=== PATIENT | male | born 1940 | race Caucasian/White ===

== ENCOUNTER 2020-02-23 08:00 | Outpatient (RCR) | payer MEDICARE, OTHER, SELFPAY | END 2021-01-25 12:17 | disposition home or self-care (01) | LOC: HO.WCC 08:00 | PROVIDERS: Visit Provider Surgery | DX: E11.621 Type 2 diabetes mellitus with foot ulcer (principal); L97.514 Non-pressure chronic ulcer of other part of right foot with necrosis of bone; E11.69 Type 2 diabetes mellitus with other specified complication; M86.671 Other chronic osteomyelitis, right ankle and foot; E11.40 Type 2 diabetes mellitus with diabetic neuropathy, unspecified; E11.22 Type 2 diabetes mellitus with diabetic chronic kidney disease; I12.0 Hypertensive chronic kidney disease with stage 5 chronic kidney disease or end stage renal disease; N18.6 End stage renal disease; L84 Corns and callosities; Z79.2 Long term (current) use of antibiotics | CPT/HCPCS: 11042; 11044; 15271; 15275; 97597; 99212; 99213; Q4186 ==

== ENCOUNTER 2020-03-15 11:51 | Outpatient (REF) | payer MEDICARE, OTHER, SELFPAY ==
[2020-03-15 13:47] LABS: MANUAL DIFF FLAG NO
[2020-03-15 13:54] LABS: Glucose Urine UA NEG (NEG); Leukocyte Esterase Urine NEG (NEG); Nitrite Urine NEG (NEG); PH 6.5 (5.0-8.0); Urine Blood NEG (NEG); Urine Ketones NEG (NEG); Urine Protein 2+ MG/DL (NEG-TRACE)
[2020-03-15 13:57] LABS: Basophils Absolute Auto 0.1 X10*3/uL (0.0-0.2); Eosinophils Absolute Auto 0.2 X10*3/uL (0.0-0.4); Eosinophils Percent Auto 2.7 % (0-4); Hematocrit 41.1 % (42-52); Hemoglobin 13.3 g/dl (14.0-18.0); Imm Gran Abs Auto 0.05 X10*3/uL (0.00-0.03); Imm Gran Pct Auto 0.6 % (0.0-0.4); Lymphocytes Absolute Auto 1.6 X10*3/uL (1.2-4.9); Lymphocytes Percent Auto 19.3 % (20-40); Mean Corpuscular HGB Conc 32.4 g/dl (31.0-36.0); Mean Corpuscular Hemoglobin 27.5 pg (27.0-33.0); Mean Corpuscular Volume 84.9 fL (80-98); Monocytes Absolute Auto 0.9 X10*3/uL (0.1-1.2); Monocytes Percent Auto 10.8 % (2-11); Neutrophils Absolute Auto 5.4 X10*3/uL (2.0-8.3); Neutrophils Percent Auto 65.6 % (45-73); Platelet Count 275 X10*3/uL (160-400); Red Blood Count 4.84 X10*6/uL (4.60-5.80); Red Cell Distribution Width 13.9 % (11.0-16.0); White Blood Count 8.3 X10*3/uL (4.8-10.8)
[2020-03-15 14:06] LABS: Appearance Urine CLEAR; Color Urine YELLOW
[2020-03-15 14:14] LABS: RBC Urine 0 /HPF (0); Squamous Epithelial Cell Urine TRACE /LPF; WBC Urine 0-2 /HPF (0-4)
[2020-03-15 14:26] LABS: Albumin Level 4.5 g/dL (3.5-5.0); Anion Gap 15 (12-20); Blood Urea Nitrogen 26 mg/dL (9-16); Calcium 9.5 mg/dL (8.4-10.2); Carbon Dioxide 26 mmol/L (22-29); Chloride 101 mmol/L (96-108); Estimated Glomerular Filt Rate 33; Magnesium 2.2 mg/dL (1.6-2.6); Phosphorus 3.5 mg/dL (2.7-4.5); Potassium 4.6 mmol/l (3.3-5.1); Sodium 137 mmol/L (135-145)
[2020-03-15 14:28] LABS: Creatinine Urine 40.38 mg/dL; Microalbum/Creatinine Ratio Ur 1233.2 ug/mg cr; Total Protein Urine Random 71 mg/dL (<12)
[2020-03-15 14:29] LABS: Creatinine Urine 38.67 mg/dL; Protein/Creatinine Ratio, Ur 1.81 (<0.2); Total Protein Urine Random 70 mg/dL (<12)
[2020-03-15 15:12] LABS: Renal w Reflex Lab Use Only Order verified
[2020-03-16 16:51] LABS: IgA 494 mg/dL (70-320); IgG 1646 mg/dL (600-1540); IgM 47 mg/dL (50-300)
[2020-03-16 23:07] LABS: Calcium (PTHI) 9.7 mg/dL (8.6-10.3); PTHI 62 pg/mL (14-64)
== END 2020-03-15 11:52 | disposition home or self-care (01) ==
LOC: HO.LAB 11:51
PROVIDERS: PCP Internal Medicine; Visit Provider Internal Medicine Nephrology
DX: E11.22 Type 2 diabetes mellitus with diabetic chronic kidney disease (principal); I12.9 Hypertensive chronic kidney disease with stage 1 through stage 4 chronic kidney disease, or unspecified chronic kidney disease; N18.4 Chronic kidney disease, stage 4 (severe)
CPT/HCPCS: 36415; 80051; 81001; 81003; 81015; 82040; 82043; 82306; 82310; 82565; 82784; 83735; 83970; 84100; 84156; 84520; 85025; 86334

== ENCOUNTER 2020-04-24 14:42 | Outpatient (REF) | payer MEDICARE, OTHER, SELFPAY ==
[2020-04-24 18:29] LABS: Free T4 (Free Thyroxine) 1.04 ng/dL (0.71-1.85); Thyroid Stimulating Hormone 2.04 uIU/mL (0.32-4.0)
== END 2020-04-24 14:43 | disposition home or self-care (01) ==
LOC: HO.MANLDS 14:42
PROVIDERS: PCP Physician Assistant; Visit Provider Physician Assistant
DX: R60.0 Localized edema (principal)
CPT/HCPCS: 84439; 84443

== ENCOUNTER 2020-04-25 08:28 | Outpatient (REF) | payer MEDICARE, OTHER, SELFPAY ==
--- NOTE | 2020-04-25 08:44 | XR_ITS ---
EXAMINATION: XR FOOT, RIGHT CLINICAL INFORMATION: Cellulitis right big toe. COMPARISON: None TECHNIQUE: AP, lateral, and oblique views of the right foot. FINDINGS: There is no visible acute fracture, dislocation or subluxation. There is a moderate size calcaneal heel enthesophyte. There is moderate dorsal talonavicular spurring and navicular cuboid spurring. There is flexion deformity PIP joint first digit. No visible acute fracture, dislocation or subluxation seen. There is mild increased soft tissue swelling right great toe but no bony erosive changes. XR/XR foot RT min 3V IMPRESSION: Moderate right great toe soft tissue swelling without bony erosive changes. No suspicion for cellulitis. Dorsal tarsal spurring and a moderate size calcaneal heel enthesophyte.
== END 2020-04-25 08:29 | disposition home or self-care (01) ==
LOC: HO.XRAY 08:28
PROVIDERS: PCP Internal Medicine; Visit Provider Physician Assistant
DX: L03.90 Cellulitis, unspecified (principal)
CPT/HCPCS: 73630

== ENCOUNTER 2020-05-09 13:11 | Outpatient (REF) | payer MEDICARE, OTHER, SELFPAY ==
[2020-05-09 18:13] LABS: Estimated Average Glucose 146 mg/dL; Hemoglobin A1c % 6.7 %
[2020-05-09 18:21] LABS: Alanine Aminotransferase 13 U/L (0-40); Albumin Level 4.3 g/dL (3.5-5.0); Alkaline Phosphatase 76 U/L (39-117); Anion Gap 14 (12-20); Aspartate Amino Transferase 19 U/L (5-37); Bilirubin Total 0.3 mg/dL (0.0-1.0); Blood Urea Nitrogen 29 mg/dL (9-16); Calcium 8.6 mg/dL (8.4-10.2); Carbon Dioxide 27 mmol/L (22-29); Chloride 101 mmol/L (96-108); Estimated Glomerular Filt Rate 30; Glucose Random 159 mg/dL (60-115); Potassium 4.7 mmol/l (3.3-5.1); Sodium 137 mmol/L (135-145); Total Protein 7.8 g/dL (6.5-8.0)
== END 2020-05-09 13:12 | disposition home or self-care (01) ==
LOC: HO.MANLR 13:11
PROVIDERS: PCP Internal Medicine; Referring Provider Internal Medicine Nephrology; Visit Provider Internal Medicine
DX: E11.9 Type 2 diabetes mellitus without complications (principal)
CPT/HCPCS: 80053; 83036

== ENCOUNTER → 2020-06-06 09:50 | Outpatient (BNVA) | payer MEDICARE, OTHER, SELFPAY | PROVIDERS: PCP Internal Medicine; Visit Provider Internal Medicine Cardiovascular Disease | DX: I35.0 Nonrheumatic aortic (valve) stenosis (principal); I10 Essential (primary) hypertension | CPT/HCPCS: 93005; 99212 ==

== ENCOUNTER 2020-08-13 13:36 | Outpatient (REF) | payer MEDICARE, OTHER, SELFPAY ==
[2020-08-13 18:10] LABS: Alanine Aminotransferase 16 U/L (0-40); Albumin Level 4.1 g/dL (3.5-5.0); Alkaline Phosphatase 72 U/L (39-117); Anion Gap 17 (12-20); Aspartate Amino Transferase 22 U/L (5-37); Bilirubin Total 0.6 mg/dL (0.0-1.0); Blood Urea Nitrogen 35 mg/dL (9-16); Calcium 8.9 mg/dL (8.4-10.2); Carbon Dioxide 24 mmol/L (22-29); Chloride 105 mmol/L (96-108); Cholesterol 190 mg/dL; Estimated Glomerular Filt Rate 31; Glucose Random 187 mg/dL (60-115); HDL Cholesterol 40 mg/dL; LDL Cholesterol Calculated 109 mg/dl; Potassium 4.8 mmol/L (3.3-5.1); Sodium 141 mmol/L (135-145); Total Protein 7.4 g/dL (6.5-8.0); Triglycerides 209 mg/dL
[2020-08-14 03:57] LABS: Estimated Average Glucose 140 mg/dL; Hemoglobin A1c % 6.5 %
== END 2020-08-13 13:37 | disposition home or self-care (01) ==
LOC: HO.MANLDS 13:36
PROVIDERS: PCP Internal Medicine; Visit Provider Internal Medicine
DX: E11.9 Type 2 diabetes mellitus without complications (principal)
CPT/HCPCS: 36415; 80053; 80061; 83036

== ENCOUNTER 2020-09-24 07:50 | Outpatient (REF) | payer MEDICARE, OTHER, SELFPAY ==
[2020-09-24 08:28] LABS: MANUAL DIFF FLAG NO
[2020-09-24 08:40] LABS: Basophils Absolute Auto 0.1 X10*3/uL (0.0-0.2); Basophils Percent Auto 0.8 % (0-2); Eosinophils Absolute Auto 0.3 X10*3/uL (0.0-0.4); Eosinophils Percent Auto 3.8 % (0-4); Imm Gran Abs Auto 0.06 X10*3/uL (0.00-0.03); Imm Gran Pct Auto 0.7 % (0.0-0.4); Lymphocytes Absolute Auto 2.2 X10*3/uL (1.2-4.9); Mean Corpuscular HGB Conc 32.5 g/dl (31.0-36.0); Mean Corpuscular Hemoglobin 27.4 pg (27.0-33.0); Mean Corpuscular Volume 84.4 fL (80-98); Mean Platelet Volume 9.8 fL (9.4-12.4); Monocytes Absolute Auto 0.8 X10*3/uL (0.1-1.2); Monocytes Percent Auto 9.4 % (2-11); Neutrophils Percent Auto 59.3 % (45-73); Platelet Count 253 X10*3/uL (160-400); Red Blood Count 4.74 X10*6/uL (4.60-5.80); Red Cell Distribution Width 13.9 % (11.0-16.0); White Blood Count 8.5 X10*3/uL (4.8-10.8)
[2020-09-24 08:52] LABS: Glucose Urine UA 100 MG/DL (NEG); Leukocyte Esterase Urine NEG (NEG); Nitrite Urine NEG (NEG); Urine Blood TRACE (NEG); Urine Ketones NEG (NEG); Urine Protein 2+ MG/DL (NEG-TRACE)
[2020-09-24 09:10] LABS: Appearance Urine CLEAR; Color Urine YELLOW
[2020-09-24 09:12] LABS: RBC Urine 0 /HPF (0); Squamous Epithelial Cell Urine TRACE /LPF; WBC Urine 0 /HPF (0-4)
[2020-09-24 10:07] LABS: Anion Gap 12 (12-20); Blood Urea Nitrogen 26 mg/dL (9-16); Calcium 9.2 mg/dL (8.4-10.2); Carbon Dioxide 23 mmol/L (22-29); Chloride 106 mmol/L (96-108); Estimated Glomerular Filt Rate 31; Phosphorus 3.1 mg/dL (2.7-4.5); Potassium 4.4 mmol/L (3.3-5.1); Sodium 137 mmol/L (135-145)
[2020-09-24 10:19] LABS: Creatinine Urine 44.85 mg/dL; Protein/Creatinine Ratio, Ur 2.47 (<0.2); Total Protein Urine Random 111 mg/dL (<12)
[2020-09-24 10:54] LABS: Renal w Reflex Lab Use Only Order verified
[2020-09-24 11:07] LABS: Albumin Level 4.2 g/dL (3.5-5.0); Magnesium 1.9 mg/dL (1.6-2.6)
[2020-09-25 14:51] LABS: IgA 481 mg/dL (70-320); IgG 1393 mg/dL (600-1540); IgM 44 mg/dL (50-300)
[2020-09-25 17:16] LABS: PTHI 101 pg/mL (14-64)
== END 2020-09-24 07:51 | disposition home or self-care (01) ==
LOC: HO.LAB 07:50
PROVIDERS: PCP Internal Medicine; Visit Provider Internal Medicine Nephrology
DX: E11.22 Type 2 diabetes mellitus with diabetic chronic kidney disease (principal); I12.9 Hypertensive chronic kidney disease with stage 1 through stage 4 chronic kidney disease, or unspecified chronic kidney disease; N18.4 Chronic kidney disease, stage 4 (severe)
CPT/HCPCS: 36415; 80051; 81001; 81003; 82040; 82043; 82306; 82310; 82565; 82784; 83735; 83970; 84100; 84156; 84520; 85025; 86334

== ENCOUNTER 2020-12-03 10:51 | Inpatient (IN) | payer MEDICARE, OTHER, SELFPAY ==
[2020-12-03] VITALS (8 sets, daily range): BP systolic 154–177; BP diastolic 66–93; PULSE 88–101; RESP 16–20; TEMP 36.6–37.4; O2SAT 94–99; BMI 28.0
--- NOTE | ~2020-12-03 | MR_ITS ---
EXAMINATION: MR FOOT WITHOUT AND WITH CONTRAST, RIGHT CLINICAL INFORMATION: First toe ulceration, question osteomyelitis. COMPARISON: X-ray 12/03/2020 TECHNIQUE: MRI on a high-field magnet without and with contrast. 10 mL Gadavist. FINDINGS: FIRST TOE: There is valgus angulation of the 1st distal phalanx at the 1st IP joint. There is apparent soft tissue defect/ulceration in the plantar soft tissues at the level of the distal aspect of the 1st distal phalanx, measuring approximately 0.9 cm transverse, 0.8 cm in length. There is soft tissue swelling with edema/cellulitis present. In the underlying soft tissues, there is a a linearly-oriented bright linear signal, which is nonenhancing extending from the region of the suspected ulceration, which appears to extend to the underlying bone. This could represent a sinus tract. No organized fluid collection or abscess is seen. There are foci of low T1/T2 signal in the dorsal soft tissues overlying the distal 1st proximal phalanx, and the 1st IP joint, suggesting foci of air. Severe bright T2, low T1 signal and enhancement in the 1st distal phalanx diffusely, highly suspicious for osteomyelitis. There is bony irregularity, bony fragmentation/fracture of the 1st distal phalanx, better appreciated on the prior x-ray. There is marked 1st interphalangeal joint space narrowing. No significant joint effusion is seen. Given the intra-articular involvement of the findings of the 1st distal phalanx, 1st interphalangeal joints, septic arthritis cannot be excluded. There is mild edema in the distal 1st proximal phalanx, with intermediate T1 signal changes. This may reflect reactive edema, with early osteomyelitis not excluded. Flexor tendon grossly appears intact. No appreciable tenosynovitis. The distal aspect of the 1st extensor tendon is not clearly visualized, and integrity is not confirmed. ADDITIONAL FINDINGS: Mild 1st MTP joint arthritis. No additional areas of osteomyelitis are identified. Extensive dorsal soft tissue swelling, subcutis edema/cellulitis. Fatty replacement edema of the intrinsic muscles of the foot, probably reflecting denervation changes. MR/MR foot RT wo/w con IMPRESSION: 1. Soft tissue defect/ulceration on the plantar aspect of the 1st distal phalanx. Associated 1st toe soft tissue swelling, edema/cellulitis present. No drainable fluid collections. Question sinus tract extending into the soft tissues to the underlying bone, described above. There appears to be foci of air in the dorsal soft tissues of the distal 1st toe, described above. 2. Abnormal edema and enhancement diffusely of the 1st distal phalanx. Bony irregularity, bony fragmentation/fracture of the distal phalanx is better appreciated on the previous x-ray. Finding is highly suspicious for osteomyelitis in the appropriate clinical circumstance. 3. Marked 1st interphalangeal joint space narrowing. Septic arthritis cannot be excluded. No significant joint effusion is appreciated. 4. Mild edema/enhancement in the distal 1st proximal phalanx, could reflect reactive edema, or early osteomyelitis. 5. The distal aspect of the 1st toe extensor tendon is not clearly visualized, integrity is not confirmed. 6. Additional findings and details, as above.
--- NOTE | ~2020-12-03 | XR_ITS ---
EXAMINATION: XR FOOT, RIGHT CLINICAL INFORMATION: Soft tissue swelling. Assess for osteomyelitis COMPARISON: Radiographs right foot 04/25/2020. TECHNIQUE: AP, lateral, and oblique views of the right foot. FINDINGS: There is artifact from overlying dressing with associated gritty dressing artifact overlying the right great toe. The AP view demonstrates comminuted fracture medial base great toe proximal phalanx extending to the articular surface. This represents new finding from prior exam 04/25/2020. In the setting of soft tissue infection, this may represent pathologic fracture. There is no periostitis. No gas tracking in the soft tissues. The remainder of the bony structures appear intact. Again, there are posterior and plantar calcaneal spurs and prominent dorsal spurring from the talonavicular region and midfoot. XR/XR foot RT 2V IMPRESSION: 1. Comminuted fracture medial base first distal phalanx extending to the articular surface. Overlying artifact from soft tissue dressing. In the setting of local soft tissue infection in this area, this may represent pathologic fracture. 2. Remainder of bony structures appear intact.
--- NOTE | ~2020-12-03 | IR_ITS ---
PROCEDURE: IR INSERTION OF TUNNEL CATHETER CLINICAL INFORMATION: Osteomyelitis of distal phalanx great toe right foot. COMPARISON: Right tunneled catheter insertion 01/22/2018. TECHNIQUE: Following explaining ultrasound fluoroscopy-guided placement of right-sided Pro-Line/Eagle catheter procedure, benefits and risk, a written consent was obtained. Patient was placed supine on fluoroscopy table and preliminary ultrasound imaging was obtained. An optimal site was selected, marked, cleaned and draped in usual sterile manner. 1% lidocaine was injected at the puncture site. Under sterile ultrasound guidance a single wall needle was advanced from the right supraclavicular fossa laterally into the jugular vein. After observing venous return a thin guidewire was advanced and the needle withdrawn. Over the guidewire a 3 Maltese dilator was placed and the entire unit was anchored to the skin. Approximately 1 guaze length away from the right neck puncture along the anterior chest wall 1% lidocaine was inserted. A small skin incision was performed. A tunneler attached to the Eagle/Pro-Line catheter was advanced subcutaneously from the anterior chest wall region to the neck excision and was pulled out. The catheter was sized to 32 cm long. At neck incision the thin guidewire was replaced by 0.018 wire. The 3 Maltese sheath was exchanged for a 5 Maltese peel-away sheath. The dilator and the wire were removed and the pre-sized Eagle catheter was advanced through the dilator. The peel-away dilator was removed as the catheter was advanced. A final image was obtained documenting the catheter tip in the atrium or at the atrio-caval junction. The incision sites at the neck and the anterior chest wall were sutured with 3-0 absorbable sutures. The Eagle catheter was flushed with heparin. Conscious sedation and patient monitoring was performed during the exam. Patient tolerated procedure extremely well. All elements of maximal sterile barrier technique followed including use of cap, mask, sterile gown, sterile gloves, a sterile full body drape and hand hygiene. Also followed skin preparation with 2% chlorhexidine for cutaneous antisepsis, and sterile ultrasound preparation with sterile gel and probe cover when applicable. FINDINGS: On preliminary ultrasound imaging there is a widely patent right jugular vein and right carotid artery. Ultrasound and fluoroscopy-guided placement of a 32 cm long tunneled Eagle catheter with its tip in the right atrium or at the atrio-caval junction. IR/IR cvc insert central tunnel IMPRESSION: Successful placement of 5 Maltese tunneled Pro-Line/Eagle catheter.
--- NOTE | 2020-12-03 12:03 | ED_ITS ---
HPI - General Adult General Chief complaint: General Medical Stated complaint: foot infection Time Seen by Provider: 12/03/20 11:52 Source: patient Mode of arrival: ambulatory Limitations: no limitations History of Present Illness HPI narrative: 80-year-old male came in for evaluation of infected right foot. Patient been having right foot infection after injury, patient was put on Keflex orally at home with worsening of the cellulitis of the right foot and patient was sent to the emergency department for further evaluation. 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 Related Data Home Medications Medication Instructions Recorded Confirmed ascorbic acid (vitamin C) 1,000 mg 500 mg PO DAILY 06/06/20 12/03/20 tablet calcium carbonate 600 mg calcium 600 mg PO DAILY 06/06/20 12/03/20 (1,500 mg) tablet cholecalciferol (vitamin D3) 25 25 mcg PO DAILY 06/06/20 12/03/20 mcg (1,000 unit) capsule lactobacillus combination no.9 4 4,000 mmu cells PO DAILY 06/06/20 12/03/20 billion cell capsule nifedipine 90 mg tablet,extended 90 mg PO DAILY 06/06/20 12/03/20 release omega-3 fatty acids 1,000 mg 1,000 mg PO DAILY 06/06/20 12/03/20 capsule vitamin B complex 1 tab PO DAILY 06/06/20 12/03/20 Allergies Allergy/AdvReac Type Severity Reaction Status Date / Time latex [LATEX] Allergy Intermediate RASH Verified 12/03/20 10:55 latex AdvReac Unknown itchy Uncoded 11/28/19 00:00 since picc line has been put in Review of Systems Review of Systems: All other systems are reviewed and are negative Constitutional: Reports as per HPI and Reports no additional constitutional complaints Eyes: Reports as per HPI and Reports no additional eye complaints Reports system reviewed and no additional complaints, except as documented Cardiovascular: Reports as per HPI and Reports no additional cardiovascular complaints Respiratory: Reports as per HPI and Reports no additional respiratory complaints Gastrointestinal: Reports as per HPI and Reports no additional gastrointestinal complaints Genitourinary: Reports no additional female genitourinary complaints Musculoskeletal: Reports no additional musculoskeletal complaints Skin/Breast: Reports system reviewed and no additional complaints, except as d ocu Psychiatric: Reports no additional psychiatric complaints Endocrine: Reports no additional endocrine complaints Hematologic/Lymphatic: Reports no additional hematologic/lymphatic complaints Allergic/Immunologic: Reports no additional allergic/immunologic complaints Reports system reviewed and no additional complaints, except as documented and Reports Abnormal speech present [facility] Past Medical History Medical History Diabetes Heart murmur Kidney disease Family History Family History Father Heart attack CVD (cardiovascular disease) Mother Colon cancer Social History Social History Patient Tobacco Use Status: Never used Tobacco Use of substances other than those prescribed or required for medical reasons: No Advance Directives: No Advance Directives Information Provided: No Physical Exam Vital Signs: Vital Signs: Last Vital Signs Temp 98.2 F 12/03/20 13:04 Pulse 91 12/03/20 13:04 Resp 18 12/03/20 10:55 BP 177/84 H 12/03/20 13:04 Pulse Ox 98 12/03/20 13:04 Body Mass Index 28.0 Vital signs have been reviewed as appeared to be correct. Blood pressure normal. Heart rate normal. Respiration rate normal. Temperature normal. Oxygen saturation normal. Appearance: Alert. Oriented X3. No acute distress. Head: Normal external exam. Normocephalic. Atraumatic. No Falcon signs noted. No raccoon eyes noted Eyes: PERRLA. EOMI. Conjunctiva and sclera normal. Eyelids normal. ENT: TM's Normal. Pharynx normal. Uvula midline. Moist mucous membranes. No trismus noted. No drooling noted. No muffled voice noted. Neck: Normal inspection. Neck supple. FROM. No adenopathy. Thyroid Normal. No meningeal signs. No neck mass noted. CVS: Normal heart rate and rhythm. Heart sound normal. No murmurs noted. Pulses normal throughout. Respiratory: No respiratory distress. Painless inspiration. Breath sounds normal. No wheezes/rales/rhonchi noted. Chest nontender. No accessory muscle usage noted or decreased air movement noted. Abdomen: Soft and nontender. Bowel sounds normal in all 4 quadrants. No distention noted. No organomegaly noted. No visible injury noted. Back: No CVA tenderness. Full range of motion noted. Skin: Skin warm and dry. Normal skin color. Normal skin turgor. No rashes/lesions/lacerations noted. Extremities: Right foot exam: Area of redness, hotness, tenderness of the scan on the dorsum of the right foot with ulceration at the tip of the right big toe. Neuro: Oriented X 3. No motor deficit. No sensory deficit. Reflexes normal. Course Course Course Narrative: Assessment and plan. 80-year-old male with right foot cellulitis that is not responding to oral antibiotic. Patient meet criteria for SIRS, will start the patient on Vanco/Zosyn IV and will admit the patient, get an inpatient ortho consult. Medical Decision Making Lab Data Lab results reviewed: Yes I reviewed the patient's lab results. Result diagrams: 12/03/20 12:25 12/03/20 12:25 Labs: Lab Results 12/03/20 12/03/20 12/03/20 Range/Units 12:25 12:25 12:25 WBC 12.3 H (4.8-10.8) X10*3/uL RBC 4.67 (4.60-5.80) X10*6/uL Hgb 12.9 L (14.0-18.0) g/dl Hct 38.8 L (42-52) % MCV 83.1 (80-98) fL MCH 27.6 (27.0-33.0) pg MCHC 33.2 (31.0-36.0) g/dl RDW 13.0 (11.0-16.0) % Plt Count 264 (160-400) X10*3/uL MPV 9.4 (9.4-12.4) fL Immature Gran % (Auto) 0.7 H (0.0-0.4) % Neut % (Auto) 77.0 H (45-73) % Lymph % (Auto) 7.6 L (20-40) % [place] % (Auto) 14.0 H (2-11) % Eos % (Auto) 0.3 (0-4) % Baso % (Auto) 0.4 (0-2) % Lymph # (Auto) 0.9 L (1.2-4.9) X10*3/uL [place] # (Auto) 1.7 H (0.1-1.2) X10*3/uL Eos # (Auto) 0.0 (0.0-0.4) X10*3/uL Baso # (Auto) 0.1 (0.0-0.2) X10*3/uL Abs Immat Gran (auto) 0.09 H (0.00-0.03) X10*3/uL Absolute Neuts (auto) 9.4 H (2.0-8.3) X10*3/uL Absolute Nucleated RBC 0.000 (0.0-0.012) X10*3/uL Nucleated RBC % (auto) 0.0 (0.0-0.2) /100WBC Smear Tech's Comments VERIFIED Sodium 133 L (135-145) mmol/L Potassium 4.5 (3.3-5.1) mmol/L Chloride 97 (96-108) mmol/L Carbon Dioxide 24 (22-29) mmol/L Anion Gap 17 (12-20) BUN 35 H (9-16) mg/dL Creatinine 2.28 H (0.5-1.4) mg/dL Estim Creat Clear Calc 33.4 Estimated GFR 28 Random Glucose 159 H (60-115) mg/dL Lactic Acid 1.5 (0.5-2.0) mmol/L Calcium 9.7 (8.4-10.2) mg/dL COVID-19 ([facility]IVAM) (Negative) COVID-19 Clin Com 12/03/20 Range/Units 12:25 WBC (4.8-10.8) X10*3/uL RBC (4.60-5.80) X10*6/uL Hgb (14.0-18.0) g/dl Hct (42-52) % MCV (80-98) fL MCH (27.0-33.0) pg MCHC (31.0-36.0) g/dl RDW (11.0-16.0) % Plt Count (160-400) X10*3/uL MPV (9.4-12.4) fL Immature Gran % (Auto) (0.0-0.4) % Neut % (Auto) (45-73) % Lymph % (Auto) (20-40) % [place] % (Auto) (2-11) % Eos % (Auto) (0-4) % Baso % (Auto) (0-2) % Lymph # (Auto) (1.2-4.9) X10*3/uL [place] # (Auto) (0.1-1.2) X10*3/uL Eos # (Auto) (0.0-0.4) X10*3/uL Baso # (Auto) (0.0-0.2) X10*3/uL Abs Immat Gran (auto) (0.00-0.03) X10*3/uL Absolute Neuts (auto) (2.0-8.3) X10*3/uL Absolute Nucleated RBC (0.0-0.012) X10*3/uL Nucleated RBC % (auto) (0.0-0.2) /100WBC Smear Tech's Comments Sodium (135-145) mmol/L Potassium (3.3-5.1) mmol/L Chloride (96-108) mmol/L Carbon Dioxide (22-29) mmol/L Anion Gap (12-20) BUN (9-16) mg/dL Creatinine (0.5-1.4) mg/dL Estim Creat Clear Calc Estimated GFR Random Glucose (60-115) mg/dL Lactic Acid (0.5-2.0) mmol/L Calcium (8.4-10.2) mg/dL COVID-19 ([facility]IVAM) Negative (Negative) COVID-19 Clin Com See Note Imaging Data Right foot x-ray: Radiologist's impression: . Comminuted fracture medial base first distal phalanx extending to the articular surface. Overlying artifact from soft tissue dressing. In the setting of local soft tissue infection in this area, this may represent pathologic fracture. 2. Remainder of bony structures appear intact. Discharge Plan Discharge Clinical Impression: Cellulitis of foot Patient Disposition: Admitted As Inpatient
[2020-12-03] MEDS: 0.9 % Sodium Chloride 1,000 ML 999 ML IVCONT (12:36)
[2020-12-03 12:38] LABS: Basophils Absolute Auto 0.1 X10*3/uL (0.0-0.2); Basophils Percent Auto 0.4 % (0-2); Eosinophils Percent Auto 0.3 % (0-4); Hematocrit 38.8 % (42-52); Hemoglobin 12.9 g/dl (14.0-18.0); Imm Gran Abs Auto 0.09 X10*3/uL (0.00-0.03); Imm Gran Pct Auto 0.7 % (0.0-0.4); Lymphocytes Absolute Auto 0.9 X10*3/uL (1.2-4.9); Lymphocytes Percent Auto 7.6 % (20-40); MANUAL DIFF FLAG SCAN; Mean Corpuscular HGB Conc 33.2 g/dl (31.0-36.0); Mean Corpuscular Hemoglobin 27.6 pg (27.0-33.0); Mean Corpuscular Volume 83.1 fL (80-98); Mean Platelet Volume 9.4 fL (9.4-12.4); Monocytes Absolute Auto 1.7 X10*3/uL (0.1-1.2); Neutrophils Absolute Auto 9.4 X10*3/uL (2.0-8.3); Platelet Count 264 X10*3/uL (160-400); Red Blood Count 4.67 X10*6/uL (4.60-5.80); SCAN SMEAR FLAG 1; White Blood Count 12.3 X10*3/uL (4.8-10.8)
[2020-12-03 12:57] LABS: COVID-19 Test Negative (Negative); IDNOW Serial# 08D9AD1C
[2020-12-03] MEDS: Piperacillin Sodium/Tazobactam 3.375 GM in 0.9 % Sodium Chloride 50 ML IV (13:01)
[2020-12-03 13:04] LABS: SLIDE REVIEW VERIFIED
[2020-12-03 13:20] LABS: Lactic Acid 1.5 mmol/L (0.5-2.0)
[2020-12-03 13:23] LABS: Anion Gap 17 (12-20); Blood Urea Nitrogen 35 mg/dL (9-16); Calcium 9.7 mg/dL (8.4-10.2); Carbon Dioxide 24 mmol/L (22-29); Chloride 97 mmol/L (96-108); Creatinine Clr Calc Pharmacy 33.4; Estimated Glomerular Filt Rate 28; Glucose Random 159 mg/dL (60-115); Potassium 4.5 mmol/L (3.3-5.1); Sodium 133 mmol/L (135-145)
--- NOTE | 2020-12-03 13:53 | PHA.MEDREC ---
Pharmacy Consult ? Medication Reconciliation Pharmacy has completed the medication reconciliation.
[2020-12-03] MEDS: vancomycin HCL 1,000 MG in 0.9 % Sodium Chloride 250 ML 270 MG IV (14:04)
--- NOTE | 2020-12-03 14:47 | PC.NURSE ---
PT RESTING IN BED COMFORTABLY. IS AT BEDSIDE. BOTH ARE AWARE OF PLAN TO BE ADMIT TO THE HOSPITAL
[2020-12-03 15:13] LABS: Glucose Urine UA NEG (NEG); Leukocyte Esterase Urine NEG (NEG); Nitrite Urine NEG (NEG); Specific Gravity - Urine 1.015 (1.005-1.025); Urine Blood NEG (NEG); Urine Ketones NEG (NEG); Urine Protein 2+ MG/DL (NEG-TRACE)
[2020-12-03 15:15] LABS: Appearance Urine HAZY; Color Urine YELLOW
[2020-12-03 15:29] LABS: Hyaline Casts Urine 0-2 /LPF; Mucus Urine 1+ /LPF; RBC Urine 0-2 /HPF (0); Squamous Epithelial Cell Urine 1+ /LPF; WBC Urine 0 /HPF (0-4)
[2020-12-03 15:30] LABS: Amorphous Sediment Urine TRACE /LPF; Granular Casts Urine 0-2 /LPF
[2020-12-03 16:15] LABS: C Reactive Protein 23.47 mg/dL (< or = 0.50)
--- NOTE | 2020-12-03 16:33 | P.HPHOSP_ITS ---
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 He has also had multiple bouts of diabetic foot infection involving different toes over the last 5 years, including at least 1 episode of osteomyelitis requiring long-term IV antibiotic infusion through a Eagle catheter. He has previously seen our ID specialist, Dr Gamboa for these. He has not had any toe amputations, though. He denies history of MRSA or other resistant organisms. Ni history of vascular disease. He has been struggling with a problem of his right great toe ever since early December 2019, when he developed a skin tear from his diabetic shoe, which he was wearing without the orthotic insert. He sees a edge drummer and then was referred to the [facility]. The skin tear progressed to an ulcer and when he saw his edge drummer on 11/30/20, the edge drummer probed the wound done to bone. He was started on cephalexin but has developed worsening redness, swelling, and drainage from the ulcer and thus presented to the ED today. He denies fever, chills, lightheadedness, dyspnea, chest pain, nausea, or vomiting. The toe is not painful but he is neuropathic. He was found to be septic by virtue of leukocytosis and tachycardia. Review of Systems 2 Review of Systems: Yes all other systems are reviewed and are negative [facility] Medical History Aortic stenosis Diabetes Heart murmur Kidney disease Family History Father Heart attack CVD (cardiovascular disease) Mother Colon cancer Social History Patient Tobacco Use Status: Never used Tobacco Use of substances other than those prescribed or required for medical reasons: No Advance Directives: No Advance Directives Information Provided: No Meds Allergies Allergy/AdvReac Type Severity Reaction Status Date / Time latex [LATEX] Allergy Intermediate RASH Verified 12/03/20 10:55 latex AdvReac Unknown itchy Uncoded 11/28/19 00:00 since picc line has been put in Active Medications: Current Medications Generic Name Dose Route Start Last Admin Trade Name Sara PRN Reason Stop Dose Admin Acetaminophen 650 mg 12/03/20 15:56 Acetaminophen 325 Mg Tablet PO Q6H PRN Pain, Mild (Pain Scale 1-3) Ascorbic Acid 500 mg 12/04/20 09:00 Ascorbic Acid 500 Mg Tablet PO DAILY PENDING SALE TO [facility] Calcium Carbonate 500 mg 12/04/20 09:00 Calcium Carbonate 500 Mg Tablet PO DAILY PENDING SALE TO [facility] Heparin Sodium (Porcine) 5,000 unit 12/03/20 16:00 Heparin Sodium,Porcine 5,000 Unit/Ml Vial SUBCUT Q12H PENDING SALE TO [facility] Vancomycin HCl 1,000 mg/ 270 mls @ 270 mls/hr 12/04/20 14:00 Sodium Chloride IV Q24H PENDING SALE TO [facility] Piperacillin Sod/Tazobactam 50 mls @ 100 mls/hr 12/03/20 16:00 Sod 2.25 gm/ Sodium Chloride IV Q6H PENDING SALE TO [facility] Multivitamins 1 tab 12/04/20 09:00 B-Complex With Vitamin C Tablet PO DAILY PENDING SALE TO [facility] Nifedipine 90 mg 12/04/20 09:00 Nifedipine Er 90 Mg Tab.Er.24 PO DAILY PENDING SALE TO [facility] Ondansetron HCl 4 mg 12/03/20 15:56 Ondansetron Hcl 4 Mg/2 Ml Vial IVPUSH Q8H PRN Nausea and Vomiting Pharmacy Consult 1 each 12/03/20 11:52 Consult Rx Vancomycin Dosing MISCELLANE DAILY PRN Consult order Pharmacy Consult 1 each 12/03/20 12:53 Consult Rx Perform Med Rec MISCELLANE ONCE PRN Consult order Pharmacy Consult 1 each 12/03/20 15:50 Consult Rx Vancomycin Dosing MISCELLANE DAILY PRN Consult order Sodium Chloride 3 ml 12/03/20 16:00 0.9 % Sodium Chloride Flush 3 Ml Syringe IVFLUSH QSHIFT PENDING SALE TO [facility] Vitamin D 25 mcg 12/04/20 09:00 Cholecalciferol (Vitamin D3) 25 Mcg Tablet PO DAILY PENDING SALE TO [facility] Home Medications Medication Instructions Recorded Confirmed Last Taken Type ascorbic acid (vitamin C) 1,000 mg 500 mg PO DAILY 06/06/20 12/03/20 Unknown History tablet calcium carbonate 600 mg calcium 600 mg PO DAILY 06/06/20 12/03/20 Unknown History (1,500 mg) tablet cholecalciferol (vitamin D3) 25 25 mcg PO DAILY 06/06/20 12/03/20 Unknown History mcg (1,000 unit) capsule lactobacillus combination no.9 4 4,000 mmu cells PO DAILY 06/06/20 12/03/20 Unknown History billion cell capsule nifedipine 90 mg tablet,extended 90 mg PO DAILY 06/06/20 12/03/20 Unknown History release omega-3 fatty acids 1,000 mg 1,000 mg PO DAILY 06/06/20 12/03/20 Unknown History capsule vitamin B complex 1 tab PO DAILY 06/06/20 12/03/20 Unknown History Physical Exam Vital Signs and Narrative: Vital Signs: Last Vital Signs Temp 99.3 F 12/03/20 15:56 Pulse 94 12/03/20 15:56 Resp 17 12/03/20 15:56 BP 154/66 H 12/03/20 15:56 Pulse Ox 99 12/03/20 15:56 Body Mass Index 28.0 Gen: in no acute distress HEENT: sclera anicteric, moist mucus membranes Neck: supple Lungs: clear to auscultation bilaterally Heart: regular rate and rhythm, 2/6 systolic murmur at base Abd: soft, non-tender, non-distended Ext: no edema Skin: warm/well-perfused with good peripheral pulses. over the R 1st toe pad, there is a 1 cm ulcer with clear drainage. the entire R 1st toe is erythematous and indurated, and the erythema extends to the distal midfoot area Neuro: alert and oriented x3, decreased sensation to light touch bilateral lower extremities Psych: appropriate affect Results Labs CBC and Chem 7: 12/03/20 12:25 12/03/20 12:25 Labs: Laboratory Results - last 24 hr 12/03/20 12/03/20 12/03/20 12:25 12:25 12:25 MCV 83.1 MCH 27.6 MCHC 33.2 RDW 13.0 Plt Count 264 MPV 9.4 Immature Gran % (Auto) 0.7 H Neut % (Auto) 77.0 H Lymph % (Auto) 7.6 L [place] % (Auto) 14.0 H Eos % (Auto) 0.3 Baso % (Auto) 0.4 Lymph # (Auto) 0.9 L [place] # (Auto) 1.7 H Eos # (Auto) 0.0 Baso # (Auto) 0.1 Abs Immat Gran (auto) 0.09 H Absolute Neuts (auto) 9.4 H Absolute Nucleated RBC 0.000 Nucleated RBC % (auto) 0.0 Smear Tech's Comments VERIFIED Anion Gap 17 Estim Creat Clear Calc 33.4 Estimated GFR 28 Random Glucose 159 H Lactic Acid 1.5 Calcium 9.7 C-Reactive Protein 23.47 H Urine Color Urine Appearance Urine pH Ur Specific Hughes Urine Protein Urine Glucose (UA) Urine Ketones Urine Blood Urine Nitrite Ur Leukocyte Esterase Urine RBC Urine WBC Ur Squamous Epith Cells Amorphous Sediment Urine Bacteria Hyaline Casts Granular Casts Urine Mucus COVID-19 ([facility]) COVID-19 Clin Com 12/03/20 12/03/20 12:25 12:47 MCV MCH MCHC RDW Plt Count MPV Immature Gran % (Auto) Neut % (Auto) Lymph % (Auto) [place] % (Auto) Eos % (Auto) Baso % (Auto) Lymph # (Auto) [place] # (Auto) Eos # (Auto) Baso # (Auto) Abs Immat Gran (auto) Absolute Neuts (auto) Absolute Nucleated RBC Nucleated RBC % (auto) Smear Tech's Comments Anion Gap Estim Creat Clear Calc Estimated GFR Random Glucose Lactic Acid Calcium C-Reactive Protein Urine Color YELLOW Urine Appearance HAZY Urine pH 6.0 Ur Specific Hughes 1.015 Urine Protein 2+ H Urine Glucose (UA) NEG Urine Ketones NEG Urine Blood NEG Urine Nitrite NEG Ur Leukocyte Esterase NEG Urine RBC 0-2 Urine WBC 0 Ur Squamous Epith Cells 1+ Amorphous Sediment TRACE Urine Bacteria NONE Hyaline Casts 0-2 Granular Casts 0-2 Urine Mucus 1+ COVID-19 ([facility]IV[facility]) Negative COVID-19 Clin Com See Note Imaging Radiologist's Impressions: Impressions Foot X-Ray 12/03/20 11:52 IMPRESSION: 1. Comminuted fracture medial base first distal phalanx extending to the articular surface. Overlying artifact from soft tissue dressing. In the setting of local soft tissue infection in this area, this may represent pathologic fracture. 2. Remainder of bony structures appear intact. Assessment and Plan (1) Sepsis: Status: Acute (2) Osteomyelitis: Status: Acute 80yo M with DM2 with neuropathy, CKD3, HTN, and multiple prior episodes of DM foot infection including at least 1 bout of osteomyelitis, presenting with sepsis from infection of the R great toe and a worsening ulcer that probes to bone # DM foot infection/osteomyelitis - Admit to M/S. Start IV vancomycin + piperacillin/tazobactam after BCx. Consult ID + Gen Surg. Obtain MRI R foot to delineate extent of infection. Follow BCx, check ESR/CRP. Will need either long-term IV antibiotics through port or amputation. # CKD3 - SCr close to baseline, monitor SCr, avoid nephrotoxins to extent possible # HTN - continue nifedipine # DM2, diet-controlled - correction-dose lispro # VTE ppx - UFH # code - full Quality Stroke Does the patient have a stroke diagnosis?: No VTE Prior VTE?: No VTE Risk Level:: Medical - moderate - high VTE Device Contraindication: N/A - Device Ordered VTE Drug Contraindication: N/A - Med Ordered
--- NOTE | 2020-12-03 17:21 | PM.CNGS ---
History of Present Illness Consult details Consult date: 12/03/20 Narrative: 80M referred for a right big toe ulcer with cellulitis. He has known DM and has had an ulcer on the plantar aspec of his big toe, right since Dec 2019. He says this started after a toe insert he was using for his big toe deformity caused some skin breakdown. He has had this therefore since then. He is being followed by a band master as well who had recently started him on oral antibiotics. He says the foot was very red and swolen this morning so he came to the ED. He states he has had various toe infections in the poast with a hx of osteomyelitis at some point. Review of Systems Constitutional: Constitutional: Denies chills and Denies fever(s) Cardiovascular: Cardiovascular: Denies chest pain, Denies dyspnea and Denies dyspnea on exertion Respiratory: Respiratory: Denies cough, Denies dyspnea and Denies dyspnea on exertion Gastrointestinal: Gastrointestinal: Denies hematochezia and Denies change in bowel habits Genitourinary: Genitourinary: Denies hematuria and Denies difficulty urinating Musculoskeletal: Musculoskeletal: Denies back pain and Denies limited range of motion Neurologic: Denies focal weakness and Denies convulsions Psychiatric: Psychiatric: Denies depression and Denies mood swings PMFSH Past Medical History Medical History Aortic stenosis Diabetes Heart murmur Kidney disease Family History Family History Father Heart attack CVD (cardiovascular disease) Mother Colon cancer Social History Social History Household Members: Spouse Housing: House Do you presently have visiting nurse or other home services: Yes Patient Tobacco Use Status: Never used Tobacco service: No Current occupational status: retired Meds Allergies Allergy/AdvReac Type Severity Reaction Status Date / Time latex [LATEX] Allergy Intermediate RASH Verified 12/03/20 10:55 latex AdvReac Unknown itchy Uncoded 11/28/19 00:00 since picc line has been put in Active Medications: Current Medications Generic Name Dose Route Start Last Admin Trade Name Freq PRN Reason Stop Dose Admin Acetaminophen 650 mg 12/03/20 15:56 Acetaminophen 325 Mg Tablet PO Q6H PRN Pain, Mild (Pain Scale 1-3) Ascorbic Acid 500 mg 12/04/20 09:00 Ascorbic Acid 500 Mg Tablet PO DAILY [facility] Calcium Carbonate 500 mg 12/04/20 09:00 Calcium Carbonate 500 Mg Tablet PO DAILY [facility] Heparin Sodium (Porcine) 5,000 unit 12/03/20 16:00 12/03/20 17:10 Heparin Sodium,Porcine 5,000 Unit/Ml Vial SUBCUT Not Given Q12H [facility] Vancomycin HCl 1,000 mg/ 270 mls @ 270 mls/hr 12/04/20 14:00 Sodium Chloride IV Q24H [facility] Piperacillin Sod/Tazobactam 50 mls @ 100 mls/hr 12/03/20 19:00 Sod 2.25 gm/ Sodium Chloride IV Q6H [facility] Multivitamins 1 tab 12/04/20 09:00 B-Complex With Vitamin C Tablet PO DAILY [facility] Nifedipine 90 mg 12/04/20 09:00 Nifedipine Er 90 Mg Tab.Er.24 PO DAILY [facility] Ondansetron HCl 4 mg 12/03/20 15:56 Ondansetron Hcl 4 Mg/2 Ml Vial IVPUSH Q8H PRN Nausea and Vomiting Pharmacy Consult 1 each 12/03/20 11:52 Consult Rx Vancomycin Dosing MISCELLANE DAILY PRN Consult order Pharmacy Consult 1 each 12/03/20 12:53 Consult Rx Perform Med Rec MISCELLANE ONCE PRN Consult order Pharmacy Consult 1 each 12/03/20 15:50 Consult Rx Vancomycin Dosing MISCELLANE DAILY PRN Consult order Sodium Chloride 3 ml 12/03/20 16:00 12/03/20 16:41 0.9 % Sodium Chloride Flush 3 Ml Syringe IVFLUSH Not Given QSHIFT [facility] Vitamin D 25 mcg 12/04/20 09:00 Cholecalciferol (Vitamin D3) 25 Mcg Tablet PO DAILY [facility] Home Medications Medication Instructions Recorded Confirmed Last Taken Type ascorbic acid (vitamin C) 1,000 mg 500 mg PO DAILY 06/06/20 12/03/20 Unknown History tablet calcium carbonate 600 mg calcium 600 mg PO DAILY 06/06/20 12/03/20 Unknown History (1,500 mg) tablet cholecalciferol (vitamin D3) 25 25 mcg PO DAILY 06/06/20 12/03/20 Unknown History mcg (1,000 unit) capsule lactobacillus combination no.9 4 4,000 mmu cells PO DAILY 06/06/20 12/03/20 Unknown History billion cell capsule nifedipine 90 mg tablet,extended 90 mg PO DAILY 06/06/20 12/03/20 Unknown History release omega-3 fatty acids 1,000 mg 1,000 mg PO DAILY 06/06/20 12/03/20 Unknown History capsule vitamin B complex 1 tab PO DAILY 06/06/20 12/03/20 Unknown History Physical Exam Vital Signs: Vital Signs: Last Vital Signs Temp 99.3 F 12/03/20 15:56 Pulse 94 12/03/20 15:56 Resp 17 12/03/20 15:56 BP 154/66 H 12/03/20 15:56 Pulse Ox 99 12/03/20 15:56 Body Mass Index 28.0 Laboratory Results - last 24 hr 12/03/20 12/03/20 12/03/20 12:25 12:25 12:25 WBC 12.3 H RBC 4.67 Hgb 12.9 L Hct 38.8 L MCV 83.1 MCH 27.6 MCHC 33.2 RDW 13.0 Plt Count 264 MPV 9.4 Immature Gran % (A uto) 0.7 H Neut % (Auto) 77.0 H Lymph % (Auto) 7.6 L [place] % (Auto) 14.0 H Eos % (Auto) 0.3 Baso % (Auto) 0.4 Lymph # (Auto) 0.9 L [place] # (Auto) 1.7 H Eos # (Auto) 0.0 Baso # (Auto) 0.1 Abs Immat Gran (au to) 0.09 H Absolute Neuts (au to) 9.4 H Absolute Nucleated RBC 0.000 Nucleated RBC % (a uto) 0.0 Smear Tech's Comme nts VERIFIED Sodium 133 L Potassium 4.5 Chloride 97 Carbon Dioxide 24 Anion Gap 17 BUN 35 H Creatinine 2.28 H Estim Creat Clear Calc 33.4 Estimated GFR 28 Random Glucose 159 H Lactic Acid 1.5 Calcium 9.7 C-Reactive Protein 23.47 H Urine Color Urine Appearance Urine pH Ur Specific Gravit y Urine Protein Urine Glucose (UA) Urine Ketones Urine Blood Urine Nitrite Ur Leukocyte Clarisa ase Urine RBC Urine WBC Ur Squamous Epith Cells Amorphous Sediment Urine Bacteria Hyaline Casts Granular Casts Urine Mucus COVID-19 ([facility]) COVID-19 Clin Com 12/03/20 12/03/20 12:25 12:47 WBC RBC Hgb Hct MCV MCH MCHC RDW Plt Count MPV Immature Gran % (A uto) Neut % (Auto) Lymph % (Auto) [place] % (Auto) Eos % (Auto) Baso % (Auto) Lymph # (Auto) [place] # (Auto) Eos # (Auto) Baso # (Auto) Abs Immat Gran (au to) Absolute Neuts (au to) Absolute Nucleated RBC Nucleated RBC % (a uto) Smear Tech's Comme nts Sodium Potassium Chloride Carbon Dioxide Anion Gap BUN Creatinine Estim Creat Clear Calc Estimated GFR Random Glucose Lactic Acid Calcium C-Reactive Protein Urine Color YELLOW Urine Appearance HAZY Urine pH 6.0 Ur Specific Gravit y 1.015 Urine Protein 2+ H Urine Glucose (UA) NEG Urine Ketones NEG Urine Blood NEG Urine Nitrite NEG Ur Leukocyte Clarisa ase NEG Urine RBC 0-2 Urine WBC 0 Ur Squamous Epith Cells 1+ Amorphous Sediment TRACE Urine Bacteria NONE Hyaline Casts 0-2 Granular Casts 0-2 Urine Mucus 1+ COVID-19 ([facility]IVAM) Negative COVID-19 Clin Com See Note Const: General: comfortable and no acute distress Orientation/consciousness: patient oriented x3 Neck: Neck: Yes no lymphadenopathy Resp: Auscultation: clear to auscultation bilaterally Cardio: Rhythm: regular rhythm GI: Palpation (GI): Soft to palpation, nontender and no guarding Neuro: General: patient oriented x3 Extrem: Other: cellulitic changes, forefoot right; big toe, right turned laterally; ulcer on plantar aspect, about 1 cm diameter Results Labs Result diagrams: 12/05/20 06:32 12/05/20 06:32 Labs: Abnormal lab results 12/03/20 12/03/20 12/03/20 Range/Units 12:25 12:25 12:47 WBC 12.3 H (4.8-10.8) X10*3/uL Hgb 12.9 L (14.0-18.0) g/dl Hct 38.8 L (42-52) % Immature Gran % (Auto) 0.7 H (0.0-0.4) % Neut % (Auto) 77.0 H (45-73) % Lymph % (Auto) 7.6 L (20-40) % [place] % (Auto) 14.0 H (2-11) % Lymph # (Auto) 0.9 L (1.2-4.9) X10*3/uL [place] # (Auto) 1.7 H (0.1-1.2) X10*3/uL Abs Immat Gran (auto) 0.09 H (0.00-0.03) X10*3/uL Absolute Neuts (auto) 9.4 H (2.0-8.3) X10*3/uL Sodium 133 L (135-145) mmol/L BUN 35 H (9-16) mg/dL Creatinine 2.28 H (0.5-1.4) mg/dL Random Glucose 159 H (60-115) mg/dL C-Reactive Protein 23.47 H (< or = 0.50) mg/dL Urine Protein 2+ H (NEG-TRACE) MG/DL Short CBC 12/03/20 Range/Units 12:25 WBC 12.3 H (4.8-10.8) X10*3/uL Hgb 12.9 L (14.0-18.0) g/dl Hct 38.8 L (42-52) % Plt Count 264 (160-400) X10*3/uL BMP 12/03/20 12:25 Sodium 133 L Potassium 4.5 Chloride 97 Carbon Dioxide 24 BUN 35 H Creatinine 2.28 H Calcium 9.7 Urine 12/03/20 Range/Units 12:47 Urine Color YELLOW Urine Appearance HAZY Urine pH 6.0 (5.0-8.0) Ur Specific [place] 1.015 (1.005-1.025) Urine Protein 2+ H (NEG-TRACE) MG/DL Urine Glucose (UA) NEG (NEG) MG/DL All other labs normal. Assessment and Plan (1) Cellulitis of foot: Status: Acute He has cellulitis of the right foot with an ulcer on the big toe. He is scheduled for MRI tomorrow to rule out osteomyelitis. I agree with empiric abx treatment. His leg should be elevated on a pillow. He appears hemodynamically stable. I have chnaged his dressings and explained to him the plan of care. Procedures Date of Service Date of Service: 12/03/20
[2020-12-03] MEDS: Piperacillin Sodium/Tazobactam 2.25 GM in 0.9 % Sodium Chloride 50 ML IV (18:41)
[2020-12-04] VITALS (8 sets, daily range): BP systolic 125–191; BP diastolic 58–80; PULSE 63–80; RESP 16–20; TEMP 36.1–36.9; O2SAT 94–98
[2020-12-04] MEDS: 0.9 % Sodium Chloride Flush 3 ML SYRINGE IVFLUSH ×3 (00:15→21:08)
[2020-12-04] MEDS: Piperacillin Sodium/Tazobactam 2.25 GM in 0.9 % Sodium Chloride 50 ML IV ×4 (01:10→18:39)
[2020-12-04 07:01] LABS: MANUAL DIFF FLAG NO
[2020-12-04 07:07] LABS: Basophils Absolute Auto 0.1 X10*3/uL (0.0-0.2); Eosinophils Absolute Auto 0.2 X10*3/uL (0.0-0.4); Eosinophils Percent Auto 2.3 % (0-4); Hematocrit 32.3 % (42-52); Hemoglobin 10.7 g/dl (14.0-18.0); Imm Gran Abs Auto 0.06 X10*3/uL (0.00-0.03); Imm Gran Pct Auto 0.7 % (0.0-0.4); Lymphocytes Absolute Auto 1.4 X10*3/uL (1.2-4.9); Mean Corpuscular HGB Conc 33.1 g/dl (31.0-36.0); Mean Corpuscular Hemoglobin 27.6 pg (27.0-33.0); Mean Corpuscular Volume 83.2 fL (80-98); Mean Platelet Volume 9.8 fL (9.4-12.4); Monocytes Absolute Auto 1.5 X10*3/uL (0.1-1.2); Monocytes Percent Auto 17.8 % (2-11); Neutrophils Percent Auto 61.2 % (45-73); Platelet Count 240 X10*3/uL (160-400); Red Blood Count 3.88 X10*6/uL (4.60-5.80); Red Cell Distribution Width 13.2 % (11.0-16.0); White Blood Count 8.2 X10*3/uL (4.8-10.8)
[2020-12-04 07:40] LABS: Anion Gap 15 (12-20); Blood Urea Nitrogen 31 mg/dL (9-16); Carbon Dioxide 21 mmol/L (22-29); Chloride 106 mmol/L (96-108); Creatinine Clr Calc Pharmacy 32.9; Estimated Glomerular Filt Rate 27; Glucose Random 135 mg/dL (60-115); Potassium 4.6 mmol/L (3.3-5.1); Sodium 137 mmol/L (135-145)
[2020-12-04] MEDS: NIFEdipine ER 90 MG TAB.ER.24 PO ×2 (07:45→21:05)
[2020-12-04] MEDS: Cholecalciferol (Vitamin D3) 25 MCG TABLET PO (07:45)
[2020-12-04] MEDS: Ascorbic Acid 500 MG TABLET PO (07:46)
[2020-12-04 07:58] LABS: Calcium 8.3 mg/dL (8.4-10.2)
[2020-12-04 08:30] LABS: Erythrocyte Sedimentation Rate 80 MM/HR (0-15)
--- NOTE | 2020-12-04 10:03 | P.PNGS_ITS ---
Subjective Subjective Date of Service: 12/04/20 Interval history: No new complaints Mild pain on the right big toe Physical Exam Vital Signs: Vital Signs: Last Vital Signs Temp 97.0 F 12/04/20 07:49 Pulse 77 12/04/20 07:49 Resp 16 12/04/20 07:49 BP 191/80 H 12/04/20 07:49 Pulse Ox 98 12/04/20 07:49 Body Mass Index 28.0 Laboratory Results - last 24 hr 12/03/20 12/03/20 12/03/20 12:25 12:25 12:25 WBC 12.3 H RBC 4.67 Hgb 12.9 L Hct 38.8 L MCV 83.1 MCH 27.6 MCHC 33.2 RDW 13.0 Plt Count 264 MPV 9.4 Immature Gran % (A uto) 0.7 H Neut % (Auto) 77.0 H Lymph % (Auto) 7.6 L [place] % (Auto) 14.0 H Eos % (Auto) 0.3 Baso % (Auto) 0.4 Lymph # (Auto) 0.9 L [place] # (Auto) 1.7 H Eos # (Auto) 0.0 Baso # (Auto) 0.1 Abs Immat Gran (au to) 0.09 H Absolute Neuts (au to) 9.4 H Absolute Nucleated RBC 0.000 Nucleated RBC % (a uto) 0.0 Smear Tech's Comme nts VERIFIED ESR Sodium 133 L Potassium 4.5 Chloride 97 Carbon Dioxide 24 Anion Gap 17 BUN 35 H Creatinine 2.28 H Estim Creat Clear Calc 33.4 Estimated GFR 28 Random Glucose 159 H Lactic Acid 1.5 Calcium 9.7 C-Reactive Protein 23.47 H Urine Color Urine Appearance Urine pH Ur Specific Gravit y Urine Protein Urine Glucose (UA) Urine Ketones Urine Blood Urine Nitrite Ur Leukocyte Clarisa ase Urine RBC Urine WBC Ur Squamous Epith Cells Amorphous Sediment Urine Bacteria Hyaline Casts Granular Casts Urine Mucus COVID-19 ([facility]) COVID-19 Clin Com 12/03/20 12/03/20 12/04/20 12:25 12:47 05:54 WBC 8.2 RBC 3.88 L Hgb 10.7 L Hct 32.3 L MCV 83.2 MCH 27.6 MCHC 33.1 RDW 13.2 Plt Count 240 MPV 9.8 Immature Gran % (A uto) 0.7 H Neut % (Auto) 61.2 Lymph % (Auto) 17.0 L [place] % (Auto) 17.8 H Eos % (Auto) 2.3 Baso % (Auto) 1.0 Lymph # (Auto) 1.4 [place] # (Auto) 1.5 H Eos # (Auto) 0.2 Baso # (Auto) 0.1 Abs Immat Gran (au to) 0.06 H Absolute Neuts (au to) 5.0 Absolute Nucleated RBC 0.000 Nucleated RBC % (a uto) 0.0 Smear Tech's Comme nts ESR Sodium Potassium Chloride Carbon Dioxide Anion Gap BUN Creatinine Estim Creat Clear Calc Estimated GFR Random Glucose Lactic Acid Calcium C-Reactive Protein Urine Color YELLOW Urine Appearance HAZY Urine pH 6.0 Ur Specific Gravit y 1.015 Urine Protein 2+ H Urine Glucose (UA) NEG Urine Ketones NEG Urine Blood NEG Urine Nitrite NEG Ur Leukocyte Clarisa ase NEG Urine RBC 0-2 Urine WBC 0 Ur Squamous Epith Cells 1+ Amorphous Sediment TRACE Urine Bacteria NONE Hyaline Casts 0-2 Granular Casts 0-2 Urine Mucus 1+ COVID-19 ([facility]) Negative COVID-19 Clin Com See Note 12/04/20 12/04/20 05:54 06:41 WBC RBC Hgb Hct MCV MCH MCHC RDW Plt Count MPV Immature Gran % (A uto) Neut % (Auto) Lymph % (Auto) [place] % (Auto) Eos % (Auto) Baso % (Auto) Lymph # (Auto) [place] # (Auto) Eos # (Auto) Baso # (Auto) Abs Immat Gran (au to) Absolute Neuts (au to) Absolute Nucleated RBC Nucleated RBC % (a uto) Smear Tech's Comme nts ESR 80 H Sodium 137 Potassium 4.6 Chloride 106 Carbon Dioxide 21 L Anion Gap 15 BUN 31 H Creatinine 2.31 H Estim Creat Clear Calc 32.9 Estimated GFR 27 Random Glucose 135 H Lactic Acid Calcium 8.3 L D C-Reactive Protein Urine Color Urine Appearance Urine pH Ur Specific Gravit y Urine Protein Urine Glucose (UA) Urine Ketones Urine Blood Urine Nitrite Ur Leukocyte Clarisa ase Urine RBC Urine WBC Ur Squamous Epith Cells Amorphous Sediment Urine Bacteria Hyaline Casts Granular Casts Urine Mucus COVID-19 ([facility]) COVID-19 Clin Com Const: General: comfortable and no acute distress Resp: Effort & Inspection: normal respiratory effort Cardio: Rate: regular rate GI: Palpation (GI): Soft to palpation and nontender Extrem: Other: Right big toe with mantle or ulcer, scanty drainage, some cellulitis on the big toe and base the dorsum Progress Note: A&P Assessment and plan (1) Cellulitis of foot: Status: Acute Assessment and Plan: Has ulcer on the right big toe Awaiting MRI Changed dressings -wrapped foot with dry gauze and Robert roll Elevate leg Antibiotics Will follow Fall Risk Details Current Medications: Current Medications Generic Name Dose Route Start Last Admin Trade Name Freq PRN Reason Stop Dose Admin Acetaminophen 650 mg 12/03/20 15:56 Acetaminophen 325 Mg Tablet PO Q6H PRN Pain, Mild (Pain Scale 1-3) Ascorbic Acid 500 mg 12/04/20 09:00 12/04/20 07:46 Ascorbic Acid 500 Mg Tablet PO 500 mg DAILY [facility] Administration Calcium Carbonate 500 mg 12/04/20 09:00 12/04/20 07:45 Calcium Carbonate 500 Mg Tablet PO 500 mg DAILY [facility] Administration Heparin Sodium (Porcine) 5,000 unit 12/03/20 16:00 12/04/20 04:47 Heparin Sodium,Porcine 5,000 Unit/Ml Vial SUBCUT Not Given Q12H [facility] Vancomycin HCl 1,000 mg/ 270 mls @ 270 mls/hr 12/04/20 14:00 Sodium Chloride IV Q24H [facility] Piperacillin Sod/Tazobactam 50 mls @ 100 mls/hr 12/03/20 19:00 12/04/20 08:24 Sod 2.25 gm/ Sodium Chloride IV Infused Q6H [facility] Infusion Multivitamins 1 tab 12/04/20 09:00 12/04/20 07:46 B-Complex With Vitamin C Tablet PO 1 tab DAILY [facility] Administration Nifedipine 120 mg 12/04/20 09:00 Nifedipine Er 60 Mg Tab.Er.24 PO DAILY [facility] Ondansetron HCl 4 mg 12/03/20 15:56 Ondansetron Hcl 4 Mg/2 Ml Vial IVPUSH Q8H PRN Nausea and Vomiting Pharmacy Consult 1 each 12/03/20 11:52 Consult Rx Vancomycin Dosing MISCELLANE DAILY PRN Consult order Pharmacy Consult 1 each 12/03/20 12:53 Consult Rx Perform Med Rec MISCELLANE ONCE PRN Consult order Pharmacy Consult 1 each 12/03/20 15:50 Consult Rx Vancomycin Dosing MISCELLANE DAILY PRN Consult order Sodium Chloride 3 ml 12/03/20 16:00 12/04/20 07:45 0.9 % Sodium Chloride Flush 3 Ml Syringe IVFLUSH 3 ml QSHIFT [facility] Administration Vitamin D 25 mcg 12/04/20 09:00 12/04/20 07:45 Cholecalciferol (Vitamin D3) 25 Mcg Tablet PO 25 mcg DAILY [facility] Administration Time Spent With Patient Time: Total time spent is greater than 50% in coordination of care (as documented) at patient's floor/unit and/or counseling patient: Time with patient: 15 - 24 minutes Procedures Date of Service Date of Service: 12/04/20 Quality Stroke Does the patient have a stroke diagnosis?: No VTE Prior VTE?: No VTE Risk Level:: Medical - moderate - high VTE Device Contraindication: N/A - Device Ordered VTE Drug Contraindication: N/A - Med Ordered
--- NOTE | 2020-12-04 10:13 | MHC.CM.PN ---
pt lives c his in their home. he reports that he is independent in his care. he still drives a car and ambulates s any AD. pt's will provide transport at dc. depending on further evaluation, patient may require central venous access and iv abx's at home c vna . an alternative dc plan for this would be home on p.o. abx's - again pending further evaluation. dc plan remains to be seen . cm to cont. to follow.
[2020-12-04] MEDS: vancomycin HCL 1,000 MG in 0.9 % Sodium Chloride 250 ML 270 MG IV (14:45)
--- NOTE | 2020-12-04 14:51 | W.PM.IDCN ---
History of Present Illness Data of Consult Service Date: 12/04/20 Requesting physician: Sam Eller Primary Care Provider: Jos Mirza MD [facility] Reason for consult: right great toe infection diabetic foot He presents to hospital with redness and swelling of right great toe. He started five days ago with split area foot and leaking and was given Augmentin and took it for 3 days,Thursday,Thursday and Thursday and didnt improve and came to ER. He has worn size 12 instead of size 13 airboot and felt as though toe hit on boot and opened area. He has had nonhealing ulcer on foot since December and has been seeing Wound Care weekly. XRay shows pathologic fracture likely Review of Systems Review of Systems: Yes all other systems are reviewed and are negative [facility] Past Medical History Medical History Aortic stenosis Diabetes Heart murmur Kidney disease Family History Family History Father Heart attack CVD (cardiovascular disease) Mother Colon cancer Family history: reviewed and not pertinent Social History Social History Household Members: Spouse Housing: House Do you presently have visiting nurse or other home services: Yes Patient Tobacco Use Status: Never used Tobacco service: No Current occupational status: retired [employer] Allergies Allergy/AdvReac Type Severity Reaction Status Date / Time latex [LATEX] Allergy Intermediate RASH Verified 12/03/20 10:55 latex AdvReac Unknown itchy Uncoded 11/28/19 00:00 since picc line has been put in Active Medications: Current Medications Generic Name Dose Route Start Last Admin Trade Name Freq PRN Reason Stop Dose Admin Acetaminophen 650 mg 12/03/20 15:56 Acetaminophen 325 Mg Tablet PO Q6H PRN Pain, Mild (Pain Scale 1-3) Ascorbic Acid 500 mg 12/04/20 09:00 12/04/20 07:46 Ascorbic Acid 500 Mg Tablet PO 500 mg DAILY [facility] Administration Calcium Carbonate 500 mg 12/04/20 09:00 12/04/20 07:45 Calcium Carbonate 500 Mg Tablet PO 500 mg DAILY [facility] Administration Heparin Sodium (Porcine) 5,000 unit 12/03/20 16:00 12/04/20 04:47 Heparin Sodium,Porcine 5,000 Unit/Ml Vial SUBCUT Not Given Q12H PER[facility] Vancomycin HCl 1,000 mg/ 270 mls @ 270 mls/hr 12/04/20 14:00 12/04/20 14:45 Sodium Chloride IV 270 mls/hr Q24H [facility] Administration Piperacillin Sod/Tazobactam 50 mls @ 100 mls/hr 12/03/20 19:00 12/04/20 14:37 Sod 2.25 gm/ Sodium Chloride IV Infused Q6H [facility] Infusion Multivitamins 1 tab 12/04/20 09:00 12/04/20 07:46 B-Complex With Vitamin C Tablet PO 1 tab DAILY [facility] Administration Nifedipine 90 mg 12/04/20 21:00 Nifedipine Er 60 Mg Tab.Er.24 PO BEDTIME [facility] Ondansetron HCl 4 mg 12/03/20 15:56 Ondansetron Hcl 4 Mg/2 Ml Vial IVPUSH Q8H PRN Nausea and Vomiting Pharmacy Consult 1 each 12/03/20 11:52 Consult Rx Vancomycin Dosing MISCELLANE DAILY PRN Consult order Pharmacy Consult 1 each 12/03/20 12:53 Consult Rx Perform Med Rec MISCELLANE ONCE PRN Consult order Pharmacy Consult 1 each 12/03/20 15:50 Consult Rx Vancomycin Dosing MISCELLANE DAILY PRN Consult order Sodium Chloride 3 ml 12/03/20 16:00 12/04/20 07:45 0.9 % Sodium Chloride Flush 3 Ml Syringe IVFLUSH 3 ml QSHIFT [facility] Administration Vitamin D 25 mcg 12/04/20 09:00 12/04/20 07:45 Cholecalciferol (Vitamin D3) 25 Mcg Tablet PO 25 mcg DAILY [facility] Administration Home Medications Medication Instructions Recorded Confirmed Last Taken Type ascorbic acid (vitamin C) 1,000 mg 500 mg PO DAILY 06/06/20 12/03/20 Unknown History tablet calcium carbonate 600 mg calcium 600 mg PO DAILY 06/06/20 12/03/20 Unknown History (1,500 mg) tablet cholecalciferol (vitamin D3) 25 25 mcg PO DAILY 06/06/20 12/03/20 Unknown History mcg (1,000 unit) capsule lactobacillus combination no.9 4 4,000 mmu cells PO DAILY 06/06/20 12/03/20 Unknown History billion cell capsule nifedipine 90 mg tablet,extended 90 mg PO DAILY 06/06/20 12/03/20 Unknown History release omega-3 fatty acids 1,000 mg 1,000 mg PO DAILY 06/06/20 12/03/20 Unknown History capsule vitamin B complex 1 tab PO DAILY 06/06/20 12/03/20 Unknown History Physical Exam Vital Signs: Vital Signs: Last Vital Signs Temp 98.2 F 12/04/20 11:41 Pulse 76 12/04/20 11:41 Resp 16 12/04/20 11:41 BP 151/66 H 12/04/20 11:41 Pulse Ox 97 12/04/20 11:41 Body Mass Index 28.0 Const: General: cooperative HENMT: Head: Yes normal to inspection Mouth: Normal oral and palatal mucosa present Resp: Effort & Inspection: normal respiratory effort Cardio: Rate: regular rate Rhythm: regular rhythm GI: Palpation (GI): Soft to palpation and nontender Skin: General skin exam: no rashes or lesions noted Extrem: Other: wrapped area leg Results Labs CBC & Chem 7: 12/04/20 05:54 12/04/20 06:41 Labs: Short CBC 12/04/20 Range/Units 05:54 WBC 8.2 (4.8-10.8) X10*3/uL Hgb 10.7 L (14.0-18.0) g/dl Hct 32.3 L (42-52) % Plt Count 240 (160-400) X10*3/uL BMP 12/04/20 06:41 Sodium 137 Potassium 4.6 Chloride 106 Carbon Dioxide 21 L BUN 31 H Creatinine 2.31 H Calcium 8.3 L D Urine 12/03/20 Range/Units 12:47 Urine Color YELLOW Urine Appearance HAZY Urine pH 6.0 (5.0-8.0) Ur Specific [place] 1.015 (1.005-1.025) Urine Protein 2+ H (NEG-TRACE) MG/DL Urine Glucose (UA) NEG (NEG) MG/DL Microbiology Microbiology Results: Microbiology 12/03/20 12:47 Blood - Venous Blood Culture - Preliminary No growth after 24 hours. 12/03/20 12:25 Blood - Venous Blood Culture - Preliminary No growth after 24 hours. Assessment and Plan (1) Sepsis: Status: Acute (2) Diabetic neuropathy: Status: Acute (3) History of osteomyelitis: Status: Acute (4) Cellulitis of foot: Status: Acute Foot ulcer There is concern over diabetic foot infection and osteomyelitis Suggest May continue Vancomycin and Zosyn for now Would await MRI If osteomyelitis may need 6 weeks IV antibiotics
--- NOTE | 2020-12-04 16:24 | P.PNIM_ITS ---
Subjective Subjective Date of Service: 12/04/20 Interval History: No fever, chills, nausea, or vomiting. Minimal pain. Physical Exam Vital Signs: Vital Signs: Last Vital Signs Temp 97.3 F 12/04/20 15:18 Pulse 80 12/04/20 15:18 Resp 20 12/04/20 15:18 BP 151/67 H 12/04/20 15:18 Pulse Ox 94 12/04/20 15:18 Body Mass Index 28.0 Gen: in no acute distress HEENT: sclera anicteric, moist mucus membranes Neck: supple Lungs: clear to auscultation bilaterally Heart: regular rate and rhythm, 2/6 systolic murmur at base Abd: soft, non-tender, non-distended Ext: no edema Skin: warm/well-perfused with good peripheral pulses. R 1st toe wrapped, dry dressing Neuro: alert and oriented x3, decreased sensation to light touch bilateral lower extremities Psych: appropriate affect Objective Data Current Medications Generic Name Dose Route Start Last Admin Trade Name Freq PRN Reason Stop Dose Admin Acetaminophen 650 mg 12/03/20 15:56 Acetaminophen 325 Mg Tablet PO Q6H PRN Pain, Mild (Pain Scale 1-3) Ascorbic Acid 500 mg 12/04/20 09:00 12/04/20 07:46 Ascorbic Acid 500 Mg Tablet PO 500 mg DAILY [facility] Administration Calcium Carbonate 500 mg 12/04/20 09:00 12/04/20 07:45 Calcium Carbonate 500 Mg Tablet PO 500 mg DAILY [facility] Administration Heparin Sodium (Porcine) 5,000 unit 12/03/20 16:00 12/04/20 15:35 Heparin Sodium,Porcine 5,000 Unit/Ml Vial SUBCUT Not Given Q12H [facility] Vancomycin HCl 1,000 mg/ 270 mls @ 270 mls/hr 12/04/20 14:00 12/04/20 15:54 Sodium Chloride IV Infused Q24H [facility] Infusion Piperacillin Sod/Tazobactam 50 mls @ 100 mls/hr 12/03/20 19:00 12/04/20 14:37 Sod 2.25 gm/ Sodium Chloride IV Infused Q6H [facility] Infusion Multivitamins 1 tab 12/04/20 09:00 12/04/20 07:46 B-Complex With Vitamin C Tablet PO 1 tab DAILY [facility] Administration Nifedipine 90 mg 12/04/20 21:00 Nifedipine Er 60 Mg Tab.Er.24 PO BEDTIME [facility] Ondansetron HCl 4 mg 12/03/20 15:56 Ondansetron Hcl 4 Mg/2 Ml Vial IVPUSH Q8H PRN Nausea and Vomiting Pharmacy Consult 1 each 12/03/20 11:52 Consult Rx Vancomycin Dosing MISCELLANE DAILY PRN Consult order Pharmacy Consult 1 each 12/03/20 12:53 Consult Rx Perform Med Rec MISCELLANE ONCE PRN Consult order Pharmacy Consult 1 each 12/03/20 15:50 Consult Rx Vancomycin Dosing MISCELLANE DAILY PRN Consult order Sodium Chloride 3 ml 12/03/20 16:00 12/04/20 15:23 0.9 % Sodium Chloride Flush 3 Ml Syringe IVFLUSH Not Given QSHIFT [facility] Vitamin D 25 mcg 12/04/20 09:00 12/04/20 07:45 Cholecalciferol (Vitamin D3) 25 Mcg Tablet PO 25 mcg DAILY [facility] Administration Labs CBC & Chem 7: 12/04/20 05:54 12/04/20 06:41 Labs: Laboratory Results - last 24 hr 12/04/20 12/04/20 12/04/20 05:54 05:54 06:41 WBC 8.2 RBC 3.88 L Hgb 10.7 L Hct 32.3 L MCV 83.2 MCH 27.6 MCHC 33.1 RDW 13.2 Plt Count 240 MPV 9.8 Immature Gran % (Auto) 0.7 H Neut % (Auto) 61.2 Lymph % (Auto) 17.0 L Ogle % (Auto) 17.8 H Eos % (Auto) 2.3 Baso % (Auto) 1.0 Lymph # (Auto) 1.4 Ogle # (Auto) 1.5 H Eos # (Auto) 0.2 Baso # (Auto) 0.1 Abs Immat Gran (auto) 0.06 H Absolute Neuts (auto) 5.0 Absolute Nucleated RBC 0.000 Nucleated RBC % (auto) 0.0 ESR 80 H Sodium 137 Potassium 4.6 Chloride 106 Carbon Dioxide 21 L Anion Gap 15 BUN 31 H Creatinine 2.31 H Estim Creat Clear Calc 32.9 Estimated GFR 27 Random Glucose 135 H Calcium 8.3 L D Impressions Foot MRI 12/04/20 13:20 IMPRESSION: 1. Soft tissue defect/ulceration on the plantar aspect of the 1st distal phalanx. Associated 1st toe soft tissue swelling, edema/cellulitis present. No drainable fluid collections. Question sinus tract extending into the soft tissues to the underlying bone, described above. There appears to be foci of air in the dorsal soft tissues of the distal 1st toe, described above. 2. Abnormal edema and enhancement diffusely of the 1st distal phalanx. Bony irregularity, bony fragmentation/fracture of the distal phalanx is better appreciated on the previous x-ray. Finding is highly suspicious for osteomyelitis in the appropriate clinical circumstance. 3. Marked 1st interphalangeal joint space narrowing. Septic arthritis cannot be excluded. No significant joint effusion is appreciated. 4. Mild edema/enhancement in the distal 1st proximal phalanx, could reflect reactive edema, or early osteomyelitis. 5. The distal aspect of the 1st toe extensor tendon is not clearly visualized, integrity is not confirmed. 6. Additional findings and details, as above. Microbiology Microbiology Results: Microbiology 12/03/20 12:47 Blood Culture - Preliminary Blood - Venous No growth after 24 hours. 12/03/20 12:25 Blood Culture - Preliminary Blood - Venous No growth after 24 hours. Quality Stroke Does the patient have a stroke diagnosis?: No VTE Prior VTE?: No VTE Risk Level:: Medical - moderate - high VTE Device Contraindication: N/A - Device Ordered VTE Drug Contraindication: N/A - Med Ordered Assessment and Plan (1) Osteomyelitis: Status: Acute Assessment and Plan: hospital d#2 80yo M with DM2 with neuropathy, CKD3, HTN, and multiple prior episodes of DM foot infection including at least 1 bout of osteomyelitis, presenting with sepsis from infection of the R great toe and a worsening ulcer that probes to bone MRI shows osteomyelitis of the R 1st phalanx + septic arthritis of the R 1st MTP joint # DM foot infection/osteomyelitis/septic arthritis - d#2 IV vancomycin + piperacillin/tazobactam. discuss plan with ID + Gen Surg- needs either long-term IV antibiotics through port x 6 wk or amputation # CKD3 - SCr close to baseline, monitor SCr, avoid nephrotoxins to extent possible # HTN - continue nifedipine- change to qhs administration which per pt works better for him # DM2, diet-controlled, A1c 6.5 in July - correction-dose lispro # VTE ppx - UFH
[2020-12-04] MEDS: Furosemide 20 MG TABLET PO (17:50)
[2020-12-05] MEDS: Piperacillin Sodium/Tazobactam 2.25 GM in 0.9 % Sodium Chloride 50 ML IV ×4 (02:15→21:09)
[2020-12-05 04:00] VITALS: BP 126/60; PULSE 77; RESP 16; TEMP 36.4; O2SAT 91
[2020-12-05 07:20] LABS: Hematocrit 33.6 % (42-52); Hemoglobin 11.1 g/dl (14.0-18.0); Mean Corpuscular Hemoglobin 27.8 pg (27.0-33.0); Mean Platelet Volume 9.7 fL (9.4-12.4); Platelet Count 261 X10*3/uL (160-400); Red Cell Distribution Width 13.2 % (11.0-16.0); White Blood Count 9.9 X10*3/uL (4.8-10.8)
[2020-12-05 07:48] LABS: Anion Gap 17 (12-20); Blood Urea Nitrogen 37 mg/dL (9-16); Calcium 8.1 mg/dL (8.4-10.2); Carbon Dioxide 20 mmol/L (22-29); Chloride 106 mmol/L (96-108); Creatinine Clr Calc Pharmacy 30.9; Estimated Glomerular Filt Rate 25; Glucose Random 142 mg/dL (60-115); Potassium 4.7 mmol/L (3.3-5.1); Sodium 138 mmol/L (135-145)
[2020-12-05 07:58] VITALS: BP 150/72; PULSE 88; RESP 18; TEMP 36.4; O2SAT 95
[2020-12-05] MEDS: Furosemide 20 MG TABLET PO (08:05)
[2020-12-05] MEDS: Cholecalciferol (Vitamin D3) 25 MCG TABLET PO (08:05)
[2020-12-05] MEDS: Ascorbic Acid 500 MG TABLET PO (08:05)
[2020-12-05] MEDS: 0.9 % Sodium Chloride Flush 3 ML SYRINGE IVFLUSH ×2 (08:06→23:47)
[2020-12-05] MEDS: Lactated Ringers 1,000 ML 100 ML IVCONT (08:53)
--- NOTE | 2020-12-05 12:46 | HO.PM.IMPN ---
Subjective Subjective Date of Service: 12/05/20 Interval History: no new complaints; no fever/chills/diarrhea MRI demonstrates osteomyelitis Physical Exam Vital Signs: Vital Signs: Last Vital Signs Temp 97.6 F 12/05/20 07:58 Pulse 88 12/05/20 07:58 Resp 18 12/05/20 07:58 BP 150/72 H 12/05/20 07:58 Pulse Ox 95 12/05/20 07:58 Body Mass Index 28.0 Gen: in no acute distress HEENT: sclera anicteric, moist mucus membranes Neck: supple Lungs: clear to auscultation bilaterally Heart: regular rate and rhythm, 2/6 systolic murmur at base Abd: soft, non-tender, non-distended Ext: no edema Skin: warm/well-perfused with good peripheral pulses. R 1st toe wrapped Neuro: alert and oriented x3, decreased sensation to light touch bilateral lower extremities Psych: appropriate affect Objective Data Current Medications Generic Name Dose Route Start Last Admin Trade Name Freq PRN Reason Stop Dose Admin Acetaminophen 650 mg 12/03/20 15:56 Acetaminophen 325 Mg Tablet PO Q6H PRN Pain, Mild (Pain Scale 1-3) Ascorbic Acid 500 mg 12/04/20 09:00 12/05/20 08:05 Ascorbic Acid 500 Mg Tablet PO 500 mg DAILY PERRI Administration Calcium Carbonate 500 mg 12/04/20 09:00 12/05/20 08:05 Calcium Carbonate 500 Mg Tablet PO 500 mg DAILY PER[facility] Administration Furosemide 20 mg 12/04/20 17:38 12/05/20 08:05 Furosemide 20 Mg Tablet PO 20 mg DAILY PERRI Administration Protocol Heparin Sodium (Porcine) 5,000 unit 12/03/20 16:00 12/05/20 05:01 Heparin Sodium,Porcine 5,000 Unit/Ml Vial SUBCUT Not Given Q12H PER[facility] Vancomycin HCl 1,000 mg/ 270 mls @ 270 mls/hr 12/04/20 14:00 12/04/20 15:54 Sodium Chloride IV Infused Q24H [facility] Infusion Piperacillin Sod/Tazobactam 50 mls @ 100 mls/hr 12/03/20 19:00 12/05/20 07:47 Sod 2.25 gm/ Sodium Chloride IV Infused Q6H [facility] Infusion Lactated Ringer's 1,000 mls @ 100 mls/hr 12/05/20 09:00 12/05/20 08:53 Lr IVCONT 12/05/20 18:59 100 mls/hr .Q10H PER[facility] Administration Multivitamins 1 tab 12/04/20 09:00 12/05/20 08:05 B-Complex With Vitamin C Tablet PO 1 tab DAILY [facility] Administration Nifedipine 90 mg 12/05/20 21:00 12/04/20 21:05 Nifedipine Er 90 Mg Tab.Er.24 PO 90 mg BEDTIME [facility] Administration Ondansetron HCl 4 mg 12/03/20 15:56 Ondansetron Hcl 4 Mg/2 Ml Vial IVPUSH Q8H PRN Nausea and Vomiting Pharmacy Consult 1 each 12/03/20 11:52 Consult Rx Vancomycin Dosing MISCELLANE DAILY PRN Consult order Pharmacy Consult 1 each 12/03/20 12:53 Consult Rx Perform Med Rec MISCELLANE ONCE PRN Consult order Pharmacy Consult 1 each 12/03/20 15:50 Consult Rx Vancomycin Dosing MISCELLANE DAILY PRN Consult order Sodium Chloride 3 ml 12/03/20 16:00 12/05/20 08:06 0.9 % Sodium Chloride Flush 3 Ml Syringe IVFLUSH 3 ml QSHIFT [facility] Administration Vitamin D 25 mcg 12/04/20 09:00 12/05/20 08:05 Cholecalciferol (Vitamin D3) 25 Mcg Tablet PO 25 mcg DAILY [facility] Administration Labs CBC & Chem 7: 12/05/20 06:32 12/05/20 06:32 Labs: Laboratory Results - last 24 hr 12/05/20 12/05/20 06:32 06:32 WBC 9.9 RBC 4.00 L Hgb 11.1 L Hct 33.6 L MCV 84.0 MCH 27.8 MCHC 33.0 RDW 13.2 Plt Count 261 MPV 9.7 Absolute Nucleated RBC 0.000 Nucleated RBC % (auto) 0.0 Sodium 138 Potassium 4.7 Chloride 106 Carbon Dioxide 20 L Anion Gap 17 BUN 37 H Creatinine 2.46 H Estim Creat Clear Calc 30.9 Estimated GFR 25 Random Glucose 142 H Calcium 8.1 L Foot MRI 12/04/20 13:20 IMPRESSION: 1. Soft tissue defect/ulceration on the plantar aspect of the 1st distal phalanx. Associated 1st toe soft tissue swelling, edema/cellulitis present. No drainable fluid collections. Question sinus tract extending into the soft tissues to the underlying bone, described above. There appears to be foci of air in the dorsal soft tissues of the distal 1st toe, described above. 2. Abnormal edema and enhancement diffusely of the 1st distal phalanx. Bony irregularity, bony fragmentation/fracture of the distal phalanx is better appreciated on the previous x-ray. Finding is highly suspicious for osteomyelitis in the appropriate clinical circumstance. 3. Marked 1st interphalangeal joint space narrowing. Septic arthritis cannot be excluded. No significant joint effusion is appreciated. 4. Mild edema/enhancement in the distal 1st proximal phalanx, could reflect reactive edema, or early osteomyelitis. 5. The distal aspect of the 1st toe extensor tendon is not clearly visualized, integrity is not confirmed. 6. Additional findings and details, as above. Microbiology Microbiology Results: Microbiology 12/03/20 12:47 Blood Culture - Preliminary Blood - Venous No growth after 24 hours. 12/03/20 12:25 Blood Culture - Preliminary Blood - Venous No growth after 24 hours. Quality Stroke Does the patient have a stroke diagnosis?: No VTE Prior VTE?: No VTE Risk Level:: Medical - moderate - high VTE Device Contraindication: N/A - Device Ordered VTE Drug Contraindication: N/A - Med Ordered Assessment and Plan (1) Osteomyelitis: Status: Acute Assessment and Plan: hospital d#3 80yo M with DM2 with neuropathy, CKD3, HTN, and multiple prior episodes of DM foot infection including at least 1 bout of osteomyelitis, presenting with sepsis from infection of the R great toe and a worsening ulcer that probes to bone MRI shows osteomyelitis of the R 1st phalanx + possible septic arthritis of the R 1st MTP joint # DM foot infection/osteomyelitis/septic arthritis - d#3 IV vancomycin + piperacillin/tazobactam. declines any amputation. will arrange 6 wk long-term IV antibiotics through [facility] (need to preserve arm venous access in case of progression to HD in future) # CKD3 - SCr slightly increased, will give 1L of LR, recheck BMP in am # HTN - continue nifedipine # DM2, diet-controlled, A1c 6.5 in July - correction-dose lispro # VTE ppx - UFH- hold for [facility] placement
--- NOTE | 2020-12-05 12:59 | MHC.CM.PN ---
PLAN IS FOR [facility] TOMORROW (12/06/20) [facility] UPDATED. HOME INFUSION REFERRAL TO BE PLACED ONCE [facility] PRESCRIPTION RECEIVED.
--- NOTE | 2020-12-05 13:48 | PM.EVENT ---
Event Note Date of Service: 12/05/20 Event Note: weekly CBC,creatinine and SGOT and ESR
--- NOTE | 2020-12-05 13:52 | PM.IDPN ---
Subjective Subjective Date of Service: 12/05/20 Critical Care Time (minutes): 15 Comment: He has reddened right great toe with nonhealing wound base Objective Data Labs CBC & Chem 7: 12/05/20 06:32 12/05/20 06:32 Labs: Laboratory Results - last 24 hr 12/05/20 12/05/20 06:32 06:32 WBC 9.9 RBC 4.00 L Hgb 11.1 L Hct 33.6 L MCV 84.0 MCH 27.8 MCHC 33.0 RDW 13.2 Plt Count 261 MPV 9.7 Absolute Nucleated RBC 0.000 Nucleated RBC % (auto) 0.0 Sodium 138 Potassium 4.7 Chloride 106 Carbon Dioxide 20 L Anion Gap 17 BUN 37 H Creatinine 2.46 H Estim Creat Clear Calc 30.9 Estimated GFR 25 Random Glucose 142 H Calcium 8.1 L Microbiology Microbiology Results: Microbiology 12/03/20 12:47 Blood - Venous Blood Culture - Preliminary No growth after 24 hours. 12/03/20 12:25 Blood - Venous Blood Culture - Preliminary No growth after 24 hours. Physical Exam Vital Signs: Vital Signs: Last Vital Signs Temp 97.6 F 12/05/20 07:58 Pulse 88 12/05/20 07:58 Resp 18 12/05/20 07:58 BP 150/72 H 12/05/20 07:58 Pulse Ox 95 12/05/20 07:58 Body Mass Index 28.0 Const: General: cooperative HENMT: Head: Yes normal to inspection Mouth: Normal oral and palatal mucosa present Resp: Effort & Inspection: normal respiratory effort Cardio: Rate: regular rate Rhythm: regular rhythm GI: Palpation (GI): Soft to palpation and nontender Skin: General skin exam: no rashes or lesions noted Extrem: Other: right great toe swollen Assessment and Plan Assessment and plan (1) Osteomyelitis: Problem details: He has no organism isolated,MSSA in past 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
[2020-12-05 13:55] LABS: Vancomycin Trough 9.6 mcg/mL (10.0-20.0)
[2020-12-05] MEDS: vancomycin HCL 1,000 MG in 0.9 % Sodium Chloride 250 ML 270 MG IV (15:22)
[2020-12-05 15:32] VITALS: BP 153/77; PULSE 72; RESP 18; TEMP 36.9; O2SAT 95
--- NOTE | 2020-12-05 16:23 | PM.PNGS ---
Subjective Subjective Date of Service: 12/05/20 Interval history: No new complaints Denies significant pain on the foot Physical Exam Vital Signs: Vital Signs: Last Vital Signs Temp 98.4 F 12/05/20 15:32 Pulse 72 12/05/20 15:32 Resp 18 12/05/20 15:32 BP 153/77 H 12/05/20 15:32 Pulse Ox 95 12/05/20 15:32 Body Mass Index 28.0 Laboratory Results WBC 9.9 X10*3/uL (4.8 -10.8) 12/05/20 06:32 RBC 4.00 X10*6/uL (4. 60-5.80) L 12/05/20 06:32 Hgb 11.1 g/dl (14.0-1 8.0) L 12/05/20 06:32 Hct 33.6 % (42-52) L 12/05/20 06:32 MCV 84.0 fL (80-98) 12/05/20 06:32 MCH 27.8 pg (27.0-33. 0) 12/05/20 06:32 MCHC 33.0 g/dl (31.0-3 6.0) 12/05/20 06:32 RDW 13.2 % (11.0-16.0 ) 12/05/20 06:32 Plt Count 261 X10*3/uL (160 -400) 12/05/20 06:32 MPV 9.7 fL (9.4-12.4) 12/05/20 06:32 Immature Gran % (A uto) 0.7 % (0.0-0.4) H 12/04/20 05:54 Neut % (Auto) 61.2 % (45-73) 12/04/20 05:54 Lymph % (Auto) 17.0 % (20-40) L 12/04/20 05:54 King % (Auto) 17.8 % (2-11) H 12/04/20 05:54 Eos % (Auto) 2.3 % (0-4) 12/04/20 05:54 Baso % (Auto) 1.0 % (0-2) 12/04/20 05:54 Lymph # (Auto) 1.4 X10*3/uL (1.2 -4.9) 12/04/20 05:54 King # (Auto) 1.5 X10*3/uL (0.1 -1.2) H 12/04/20 05:54 Eos # (Auto) 0.2 X10*3/uL (0.0 -0.4) 12/04/20 05:54 Baso # (Auto) 0.1 X10*3/uL (0.0 -0.2) 12/04/20 05:54 Abs Immat Gran (au to) 0.06 X10*3/uL (0. 00-0.03) H 12/04/20 05:54 Absolute Neuts (au to) 5.0 X10*3/uL (2.0 -8.3) 12/04/20 05:54 Absolute Nucleated RBC 0.000 X10*3/uL (0 .0-0.012) 12/05/20 06:32 Nucleated RBC % (a uto) 0.0 /100WBC (0.0- 0.2) 12/05/20 06:32 Smear Tech's Comme nts VERIFIED 12/03/20 12:25 ESR 80 MM/HR (0-15) H 12/04/20 05:54 Sodium 138 mmol/L (135-1 45) 12/05/20 06:32 Potassium 4.7 mmol/L (3.3-5 .1) 12/05/20 06:32 Chloride 106 mmol/L (96-10 8) 12/05/20 06:32 Carbon Dioxide 20 mmol/L (22-29) L 12/05/20 06:32 Anion Gap 17 (12-20) 12/05/20 06:32 BUN 37 mg/dL (9-16) H 12/05/20 06:32 Creatinine 2.46 mg/dL (0.5-1 .4) H 12/05/20 06:32 Estim Creat Clear Calc 30.9 12/05/20 06:32 Estimated GFR 25 12/05/20 06:32 Random Glucose 142 mg/dL (60-115 ) H 12/05/20 06:32 Lactic Acid 1.5 mmol/L (0.5-2 .0) 12/03/20 12:25 Calcium 8.1 mg/dL (8.4-10 .2) L 12/05/20 06:32 C-Reactive Protein 23.47 mg/dL (< or = 0.50) H 12/03/20 12:25 Urine Color YELLOW 12/03/20 12:47 Urine Appearance HAZY 12/03/20 12:47 Urine pH 6.0 (5.0-8.0) 12/03/20 12:47 Ur Specific Gravit y 1.015 (1.005-1.0 25) 12/03/20 12:47 Urine Protein 2+ MG/DL (NEG-TRA CE) H 12/03/20 12:47 Urine Glucose (UA) NEG MG/DL (NEG) 12/03/20 12:47 Urine Ketones NEG MG/DL (NEG) 12/03/20 12:47 Urine Blood NEG (NEG) 12/03/20 12:47 Urine Nitrite NEG (NEG) 12/03/20 12:47 Ur Leukocyte Clarisa ase NEG (NEG) 12/03/20 12:47 Urine RBC 0-2 /HPF (0) 12/03/20 12:47 Urine WBC 0 /HPF (0-4) 12/03/20 12:47 Ur Squamous Epith Cells 1+ /LPF 12/03/20 12:47 Amorphous Sediment TRACE /LPF 12/03/20 12:47 Urine Bacteria NONE /LPF 12/03/20 12:47 Hyaline Casts 0-2 /LPF 12/03/20 12:47 Granular Casts 0-2 /LPF 12/03/20 12:47 Urine Mucus 1+ /LPF 12/03/20 12:47 Vancomycin Trough 9.6 mcg/mL (10.0- 20.0) L 12/05/20 13:12 COVID-19 ([facility]IV[facility]) Negative (Negati ve) 12/03/20 12:25 COVID-19 Clin Com See Note 12/03/20 12:25 Impressions Foot X-Ray 12/03/20 11:52 IMPRESSION: 1. Comminuted fracture medial base first distal phalanx extending to the articular surface. Overlying artifact from soft tissue dressing. In the setting of local soft tissue infection in this area, this may represent pathologic fracture. 2. Remainder of bony structures appear intact. Foot MRI 12/04/20 13:20 IMPRESSION: 1. Soft tissue defect/ulceration on the plantar aspect of the 1st distal phalanx. Associated 1st toe soft tissue swelling, edema/cellulitis present. No drainable fluid collections. Question sinus tract extending into the soft tissues to the underlying bone, described above. There appears to be foci of air in the dorsal soft tissues of the distal 1st toe, described above. 2. Abnormal edema and enhancement diffusely of the 1st distal phalanx. Bony irregularity, bony fragmentation/fracture of the distal phalanx is better appreciated on the previous x-ray. Finding is highly suspicious for osteomyelitis in the appropriate clinical circumstance. 3. Marked 1st interphalangeal joint space narrowing. Septic arthritis cannot be excluded. No significant joint effusion is appreciated. 4. Mild edema/enhancement in the distal 1st proximal phalanx, could reflect reactive edema, or early osteomyelitis. 5. The distal aspect of the 1st toe extensor tendon is not clearly visualized, integrity is not confirmed. 6. Additional findings and details, as above. Const: General: comfortable and no acute distress Resp: Effort & Inspection: normal respiratory effort GI: Palpation (GI): Soft to palpation and nontender Extrem: Other: Left big toe deformity, plantar ulcer on the left big toe about 1 cm in diameter, dry today, some residual redness of the big toe and edema Progress Note: A&P Assessment and plan (1) Osteomyelitis: Status: Acute Assessment and Plan: His MRI is highly suggestive of osteomyelitis of the distal phalanx of the big toe. This corresponds to the the ulcer as well. He has met with the ID specialist Dr. Gamboa. Long-term IV antibiotic treatment is being planned. We had explained to the patient that amputation may be necessary down the line if he does not respond to antibiotic treatment. In the meantime, we can continue with daily dressing changes and good wound care. Fall Risk Details Current Medications: Current Medications Generic Name Dose Route Start Last Admin Trade Name Freq PRN Reason Stop Dose Admin Acetaminophen 650 mg 12/03/20 15:56 Acetaminophen 325 Mg Tablet PO Q6H PRN Pain, Mild (Pain Scale 1-3) Ascorbic Acid 500 mg 12/04/20 09:00 12/05/20 08:05 Ascorbic Acid 500 Mg Tablet PO 500 mg DAILY PERRI Administration Calcium Carbonate 500 mg 12/04/20 09:00 12/05/20 08:05 Calcium Carbonate 500 Mg Tablet PO 500 mg DAILY PERRI Administration Furosemide 20 mg 12/04/20 17:38 12/05/20 08:05 Furosemide 20 Mg Tablet PO 20 mg DAILY PERRI Administration Protocol Vancomycin HCl 1,000 mg/ 270 mls @ 270 mls/hr 12/04/20 14:00 12/05/20 15:22 Sodium Chloride IV 270 mls/hr Q24H PERRI Administration Piperacillin Sod/Tazobactam 50 mls @ 100 mls/hr 12/03/20 19:00 12/05/20 13:33 Sod 2.25 gm/ Sodium Chloride IV Infused Q6H PERRI Infusion Lactated Ringer's 1,000 mls @ 100 mls/hr 12/05/20 09:00 12/05/20 08:53 Lr IVCONT 12/05/20 18:59 100 mls/hr .Q10H PERRI Administration Multivitamins 1 tab 12/04/20 09:00 12/05/20 08:05 B-Complex With Vitamin C Tablet PO 1 tab DAILY PERRI Administration Nifedipine 90 mg 12/05/20 21:00 12/04/20 21:05 Nifedipine Er 90 Mg Tab.Er.24 PO 90 mg BEDTIME PERRI Administration Ondansetron HCl 4 mg 12/03/20 15:56 Ondansetron Hcl 4 Mg/2 Ml Vial IVPUSH Q8H PRN Nausea and Vomiting Pharmacy Consult 1 each 12/03/20 11:52 Consult Rx Vancomycin Dosing MISCELLANE DAILY PRN Consult order Pharmacy Consult 1 each 12/03/20 12:53 Consult Rx Perform Med Rec MISCELLANE ONCE PRN Consult order Pharmacy Consult 1 each 12/03/20 15:50 Consult Rx Vancomycin Dosing MISCELLANE DAILY PRN Consult order Sodium Chloride 3 ml 12/03/20 16:00 12/05/20 15:30 0.9 % Sodium Chloride Flush 3 Ml Syringe IVFLUSH Not Given QSHIFT PERRI Vitamin D 25 mcg 12/04/20 09:00 12/05/20 08:05 Cholecalciferol (Vitamin D3) 25 Mcg Tablet PO 25 mcg DAILY PERRI Administration Time Spent With Patient Time: Total time spent is greater than 50% in coordination of care (as documented) at patient's floor/unit and/or counseling patient: Time with patient: 15 - 24 minutes Procedures Date of Service Date of Service: 12/05/20 Quality Stroke Does the patient have a stroke diagnosis?: No VTE Prior VTE?: No VTE Risk Level:: Medical - moderate - high VTE Device Contraindication: N/A - Device Ordered VTE Drug Contraindication: N/A - Med Ordered
[2020-12-05 19:35] VITALS: BP 154/71; PULSE 79; RESP 18; TEMP 36.3; O2SAT 95
[2020-12-05 21:10] VITALS: BP 154/71; PULSE 79
[2020-12-05] MEDS: NIFEdipine ER 90 MG TAB.ER.24 PO (21:10)
[2020-12-05 23:39] VITALS: BP 128/64; PULSE 76; RESP 16; TEMP 36.6; O2SAT 93
[2020-12-06] VITALS (9 sets, daily range): BP systolic 139–178; BP diastolic 66–80; PULSE 73–93; RESP 16–18; TEMP 36–36.9; O2SAT 95–99
[2020-12-06] MEDS: Piperacillin Sodium/Tazobactam 2.25 GM in 0.9 % Sodium Chloride 50 ML IV ×4 (01:45→19:08)
[2020-12-06 07:00] LABS: INTERNATIONAL NORM RATIO 1.2 (0.9-1.1); Prothrombin Time 13.1 SEC (9.9-13.0)
[2020-12-06 07:03] LABS: Partial Thromboplastin Time 29.1 SEC (24.1-38.0)
[2020-12-06 07:17] LABS: Anion Gap 13 (12-20); Blood Urea Nitrogen 31 mg/dL (9-16); C Reactive Protein 13.58 mg/dL (< or = 0.50); Calcium 8.3 mg/dL (8.4-10.2); Carbon Dioxide 23 mmol/L (22-29); Chloride 110 mmol/L (96-108); Creatinine Clr Calc Pharmacy 33.4; Estimated Glomerular Filt Rate 28; Glucose Random 139 mg/dL (60-115); Potassium 4.6 mmol/L (3.3-5.1); Sodium 141 mmol/L (135-145)
[2020-12-06] MEDS: 0.9 % Sodium Chloride Flush 3 ML SYRINGE IVFLUSH ×2 (07:25→16:39)
[2020-12-06] MEDS: Furosemide 20 MG TABLET PO (10:46)
[2020-12-06] MEDS: Cholecalciferol (Vitamin D3) 25 MCG TABLET PO (10:46)
[2020-12-06] MEDS: Ascorbic Acid 500 MG TABLET PO (10:46)
--- NOTE | 2020-12-06 11:37 | PC.NURSE ---
1100 returned to room Eagle site on right chest intact. No bleeding noted. VSS Denies pain.
--- NOTE | 2020-12-06 12:37 | MHC.CM.PN ---
[facility] CAN START [employer] ON FRIDAY 12/08 REFERRAL PLACED TO [facility] FOR IV ERTAPENEM. CM AWAITING ANSWER AND COST
--- NOTE | 2020-12-06 12:47 | HO.PM.IMPN ---
Subjective Subjective Date of Service: 12/06/20 Interval History: Eagle placed No fever/chills No nausea/vomiting Physical Exam Vital Signs: Vital Signs: Last Vital Signs Temp 98.2 F 12/06/20 11:24 Pulse 73 12/06/20 11:24 Resp 17 12/06/20 11:24 BP 165/77 H 12/06/20 11:24 Pulse Ox 96 12/06/20 11:24 Body Mass Index 28.0 Gen: in no acute distress HEENT: sclera anicteric, moist mucus membranes Neck: supple Lungs: clear to auscultation bilaterally Heart: regular rate and rhythm, 2/6 systolic murmur at base Abd: soft, non-tender, non-distended Ext: no edema Skin: warm/well-perfused with good peripheral pulses. R 1st toe wrapped. Eagle to R subclavian without bleeding or infection Neuro: alert and oriented x3, decreased sensation to light touch bilateral lower extremities Psych: appropriate affect Objective Data Current Medications Generic Name Dose Route Start Last Admin Trade Name Freq PRN Reason Stop Dose Admin Acetaminophen 650 mg 12/03/20 15:56 Acetaminophen 325 Mg Tablet PO Q6H PRN Pain, Mild (Pain Scale 1-3) Ascorbic Acid 500 mg 12/04/20 09:00 12/06/20 10:46 Ascorbic Acid 500 Mg Tablet PO 500 mg DAILY PERRI Administration Calcium Carbonate 500 mg 12/04/20 09:00 12/06/20 10:46 Calcium Carbonate 500 Mg Tablet PO 500 mg DAILY PERRI Administration Furosemide 20 mg 12/04/20 17:38 12/06/20 10:46 Furosemide 20 Mg Tablet PO 20 mg DAILY PERRI Administration Protocol Vancomycin HCl 1,000 mg/ 270 mls @ 270 mls/hr 12/04/20 14:00 12/05/20 16:35 Sodium Chloride IV Infused Q24H PERRI Infusion Piperacillin Sod/Tazobactam 50 mls @ 100 mls/hr 12/03/20 19:00 12/06/20 07:27 Sod 2.25 gm/ Sodium Chloride IV Infused Q6H PERRI Infusion Multivitamins 1 tab 12/04/20 09:00 12/06/20 10:46 B-Complex With Vitamin C Tablet PO 1 tab DAILY PERRI Administration Nifedipine 90 mg 12/05/20 21:00 12/05/20 21:10 Nifedipine Er 90 Mg Tab.Er.24 PO 90 mg BEDTIME PERRI Administration Ondansetron HCl 4 mg 12/03/20 15:56 Ondansetron Hcl 4 Mg/2 Ml Vial IVPUSH Q8H PRN Nausea and Vomiting Pharmacy Consult 1 each 12/03/20 11:52 Consult Rx Vancomycin Dosing MISCELLANE DAILY PRN Consult order Pharmacy Consult 1 each 12/03/20 12:53 Consult Rx Perform Med Rec MISCELLANE ONCE PRN Consult order Pharmacy Consult 1 each 12/03/20 15:50 Consult Rx Vancomycin Dosing MISCELLANE DAILY PRN Consult order Sodium Chloride 3 ml 12/03/20 16:00 12/06/20 07:25 0.9 % Sodium Chloride Flush 3 Ml Syringe IVFLUSH 3 ml QSHIFT PERRI Administration Vitamin D 25 mcg 12/04/20 09:00 12/06/20 10:46 Cholecalciferol (Vitamin D3) 25 Mcg Tablet PO 25 mcg DAILY PERRI Administration Labs CBC & Chem 7: 12/05/20 06:32 12/06/20 06:36 Labs: Laboratory Results - last 24 hr 12/05/20 12/06/20 12/06/20 13:12 06:36 06:36 PT 13.1 H INR 1.2 H APTT 29.1 Sodium 141 Potassium 4.6 Chloride 110 H Carbon Dioxide 23 Anion Gap 13 BUN 31 H Creatinine 2.28 H Estim Creat Clear Calc 33.4 Estimated GFR 28 Random Glucose 139 H Calcium 8.3 L C-Reactive Protein 13.58 H Vancomycin Trough 9.6 L Microbiology Microbiology Results: Microbiology 12/03/20 12:47 Blood Culture - Preliminary Blood - Venous No growth after 48 hours. 12/03/20 12:25 Blood Culture - Preliminary Blood - Venous No growth after 48 hours. Quality Stroke Does the patient have a stroke diagnosis?: No VTE Prior VTE?: No VTE Risk Level:: Medical - moderate - high VTE Device Contraindication: N/A - Device Ordered VTE Drug Contraindication: N/A - Med Ordered Assessment and Plan (1) Osteomyelitis: Status: Acute Assessment and Plan: hospital d#4 80yo M with DM2 with neuropathy, CKD3, HTN, and multiple prior episodes of DM foot infection including at least 1 bout of osteomyelitis, presenting with sepsis from infection of the R great toe and a worsening ulcer that probes to bone MRI shows osteomyelitis of the R 1st phalanx + possible septic arthritis of the R 1st MTP joint # DM foot infection/osteomyelitis/septic arthritis - d#4 IV vancomycin + piperacillin/tazobactam. declines any amputation. Eagle placed 12/06/20. change to ertapenem 1g q24h, total 6 wk, end date 01/13/21 # CKD3 - SCr at baseline # HTN - continue nifedipine # DM2, diet-controlled, A1c 6.5 in July - correction-dose lispro # VTE ppx - SCDs # dispo - [facility] cannot go to pt's house until 12/08/20, so will stay 1 more day for tomorrow's infusion
[2020-12-06] MEDS: vancomycin HCL 1,000 MG in 0.9 % Sodium Chloride 250 ML 270 MG IV (13:46)
[2020-12-06 14:54] LABS: Vancomycin Trough 23.8 mcg/mL (10.0-20.0)
[2020-12-06] MEDS: NIFEdipine ER 90 MG TAB.ER.24 PO (21:23)
[2020-12-07] VITALS: BP 121/68; PULSE 66; RESP 18; TEMP 36.6; O2SAT 100
[2020-12-07] MEDS: Piperacillin Sodium/Tazobactam 2.25 GM in 0.9 % Sodium Chloride 50 ML IV (00:20)
[2020-12-07] MEDS: 0.9 % Sodium Chloride Flush 3 ML SYRINGE IVFLUSH ×2 (01:06→08:11)
[2020-12-07 04:00] VITALS: BP 130/60; PULSE 71; RESP 18; TEMP 36.3; O2SAT 94
[2020-12-07 07:27] VITALS: BP 136/65; PULSE 75; RESP 18; TEMP 36.5; O2SAT 94
[2020-12-07 08:00] LABS: Hematocrit 38.3 % (42-52); Hemoglobin 12.6 g/dl (14.0-18.0); Mean Corpuscular HGB Conc 32.9 g/dl (31.0-36.0); Mean Corpuscular Hemoglobin 27.6 pg (27.0-33.0); Mean Corpuscular Volume 83.8 fL (80-98); Mean Platelet Volume 9.2 fL (9.4-12.4); Platelet Count 319 X10*3/uL (160-400); Red Blood Count 4.57 X10*6/uL (4.60-5.80); Red Cell Distribution Width 13.6 % (11.0-16.0)
[2020-12-07] MEDS: Cholecalciferol (Vitamin D3) 25 MCG TABLET PO (08:11)
[2020-12-07] MEDS: Ascorbic Acid 500 MG TABLET PO (08:11)
[2020-12-07] MEDS: Furosemide 20 MG TABLET PO (08:11)
[2020-12-07 08:24] LABS: Anion Gap 18 (12-20); Blood Urea Nitrogen 27 mg/dL (9-16); Calcium 8.9 mg/dL (8.4-10.2); Carbon Dioxide 20 mmol/L (22-29); Chloride 107 mmol/L (96-108); Creatinine Clr Calc Pharmacy 35.9; Estimated Glomerular Filt Rate 30; Glucose Random 130 mg/dL (60-115); Potassium 4.5 mmol/L (3.3-5.1); Sodium 140 mmol/L (135-145)
[2020-12-07 08:50] LABS: Erythrocyte Sedimentation Rate 83 MM/HR (0-15)
--- NOTE | 2020-12-07 09:50 | PM.PNGS ---
Subjective Subjective Date of Service: 12/07/20 Interval history: Feels well Denies complaints Denies pain on the foot Physical Exam Vital Signs: Vital Signs: Last Vital Signs Temp 97.7 F 12/07/20 07:27 Pulse 75 12/07/20 07:27 Resp 18 12/07/20 07:27 BP 136/65 12/07/20 07:27 Pulse Ox 94 12/07/20 07:27 Body Mass Index 28.0 Const: General: comfortable and no acute distress Resp: Effort & Inspection: normal respiratory effort Cardio: Rate: regular rate Extrem: Other: Ulcer on right big toe, with deformity of the toe, cellulitis much improved Progress Note: A&P Assessment and plan (1) Osteomyelitis: Status: Acute Assessment and Plan: Now has port for IV antibiotics Says he is going home today with IV antibiotics arranged at home Wound care for toe ulcer Follow-up in the office Fall Risk Details Current Medications: Current Medications Generic Name Dose Route Start Last Admin Trade Name Freq PRN Reason Stop Dose Admin Acetaminophen 650 mg 12/03/20 15:56 Acetaminophen 325 Mg Tablet PO Q6H PRN Pain, Mild (Pain Scale 1-3) Ascorbic Acid 500 mg 12/04/20 09:00 12/07/20 08:11 Ascorbic Acid 500 Mg Tablet PO 500 mg DAILY PERRI Administration Calcium Carbonate 500 mg 12/04/20 09:00 12/07/20 08:11 Calcium Carbonate 500 Mg Tablet PO 500 mg DAILY PERRI Administration Furosemide 20 mg 12/04/20 17:38 12/07/20 08:11 Furosemide 20 Mg Tablet PO 20 mg DAILY PERRI Administration Protocol Ertapenem 1 gm/ Sodium 50 mls @ 100 mls/hr 12/07/20 10:00 Chloride IV 12/07/20 10:29 ONCE ONE Multivitamins 1 tab 12/04/20 09:00 12/07/20 08:11 B-Complex With Vitamin C Tablet PO 1 tab DAILY PERRI Administration Nifedipine 90 mg 12/05/20 21:00 12/06/20 21:23 Nifedipine Er 90 Mg Tab.Er.24 PO 90 mg BEDTIME PERRI Administration Ondansetron HCl 4 mg 12/03/20 15:56 Ondansetron Hcl 4 Mg/2 Ml Vial IVPUSH Q8H PRN Nausea and Vomiting Pharmacy Consult 1 each 12/03/20 12:53 Consult Rx Perform Med Rec MISCELLANE ONCE PRN Consult order Pharmacy Consult 1 each 12/03/20 15:50 Consult Rx Vancomycin Dosing MISCELLANE DAILY PRN Consult order Sodium Chloride 3 ml 12/03/20 16:00 12/07/20 08:11 0.9 % Sodium Chloride Flush 3 Ml Syringe IVFLUSH 3 ml QSHIFT PERRI Administration Vitamin D 25 mcg 12/04/20 09:00 12/07/20 08:11 Cholecalciferol (Vitamin D3) 25 Mcg Tablet PO 25 mcg DAILY PERRI Administration Time Spent With Patient Time: Total time spent is greater than 50% in coordination of care (as documented) at patient's floor/unit and/or counseling patient: Time with patient: less than 15 minutes Procedures Date of Service Date of Service: 12/07/20 Quality Stroke Does the patient have a stroke diagnosis?: No VTE Prior VTE?: No VTE Risk Level:: Medical - moderate - high VTE Device Contraindication: N/A - Device Ordered VTE Drug Contraindication: N/A - Med Ordered
[2020-12-07] MEDS: Ertapenem Sodium 1 GM in 0.9 % Sodium Chloride 50 ML IV (10:48)
[2020-12-07 12:00] VITALS: BP 166/78; PULSE 72; RESP 17; TEMP 36.1; O2SAT 95
--- NOTE | 2020-12-07 12:03 | PM.DS ---
DS: Providers Provider Date of Service: 12/07/20 Date of admission: 12/03/20 15:56 Primary care physician: Jos Mirza MD Consults: 12/03/20 15:50 Consult to General Surgery Routine Consulting Provider: [facility] General Surgeons Reason for consultation: osteomyelitis R 1st toe; sinus tract; MRI pending Consult to Infectious Diseases Routine Consulting Provider: Hazel Gamboa Reason for consultation: osteomyelitis R 1st toe; sinus tract DS: Diagnosis Discharge Diagnosis (1) Osteomyelitis: Status: Acute (2) Sepsis: Status: Acute (3) Diabetic foot infection: Status: Acute (4) Septic arthritis of foot: Status: Acute DS: Medications Discharge Medications Home Medications: Home Medications Medication Instructions Recorded Confirmed ascorbic acid (vitamin C) 1,000 mg 500 mg PO DAILY 06/06/20 12/03/20 tablet calcium carbonate 600 mg calcium 600 mg PO DAILY 06/06/20 12/03/20 (1,500 mg) tablet cholecalciferol (vitamin D3) 25 25 mcg PO DAILY 06/06/20 12/03/20 mcg (1,000 unit) capsule lactobacillus combination no.9 4 4,000 mmu cells PO DAILY 06/06/20 12/03/20 billion cell capsule nifedipine 90 mg tablet,extended 90 mg PO DAILY 06/06/20 12/03/20 release omega-3 fatty acids 1,000 mg 1,000 mg PO DAILY 06/06/20 12/03/20 capsule vitamin B complex 1 tab PO DAILY 06/06/20 12/03/20 Previous Rx's Medication Instructions Recorded ertapenem 1 g IV DAILY #37 ea 12/06/20 DS: Summary Hospital Course Hospital Course: From my admission H+P, 12/03/20: Mr Lazo is an 80 year-old male patient of Dr Jos Mirza with history of diet-controlled type 2 diabetes mellitus (A1c 6.5, 08/13/20) with neuropathy, CKD3 (SCr 2.06 09/24/20), and hypertension. He has also had multiple bouts of diabetic foot infection involving different toes over the last 5 years, including at least 1 episode of osteomyelitis requiring long-term IV antibiotic infusion through a Eagle catheter. He has previously seen our ID specialist, Dr Gamboa for these. He has not had any toe amputations, though. He denies history of MRSA or other resistant organisms. Ni history of vascular disease. He has been struggling with a problem of his right great toe ever since early December 2019, when he developed a skin tear from his diabetic shoe, which he was wearing without the orthotic insert. He sees a sheet metal duct installer helper and then was referred to the [facility]. The skin tear progressed to an ulcer and when he saw his sheet metal duct installer helper on 11/30/20, the sheet metal duct installer helper probed the wound done to bone. He was started on cephalexin but has developed worsening redness, swelling, and drainage from the ulcer and thus presented to the ED today. He denies fever, chills, lightheadedness, dyspnea, chest pain, nausea, or vomiting. The toe is not painful but he is neuropathic. He was found to be septic by virtue of leukocytosis and tachycardia. He was admitted to the medical/surgical floor and started on vancomycin and piperacillin/tazobactam. MRI showed osteomyelitis of the right 1st phalanx and possible septic arthritis of the R 1st MTP joint. ID and General Surgery were consulted. He declined amputation. He was not bacteremic. A Eagle catheter was placed on 12/06/20. Antibiotic regimen was changed to ertapenem 1g q24h to be taken for a total of 6 weeks (end date 01/13/21). He was discharged jakub with VNA services and will follow up with Primary Care, Wound Clinic, Infectious Disease, and General Surgery. Time Spent with Patient Time attestation: Total time spent providing and/or coordinating discharge services: 35 Discharge coordination time: Greater than 30 minutes Quality: Stroke Does the patient have a stroke diagnosis?: No Physical Exam Vital Signs: Vital Signs: Last Vital Signs Temp 97.7 F 12/07/20 07:27 Pulse 75 12/07/20 07:27 Resp 18 12/07/20 07:27 BP 136/65 12/07/20 07:27 Pulse Ox 94 12/07/20 07:27 Body Mass Index 28.0 Gen: in no acute distress HEENT: sclera anicteric, moist mucus membranes Neck: supple Lungs: clear to auscultation bilaterally Heart: regular rate and rhythm, 2/6 systolic murmur at base Abd: soft, non-tender, non-distended Ext: no edema Skin: warm/well-perfused with good peripheral pulses. on the plantar surface of the R 1st toe pad, there is a 1 cm ulcer; the erythema of the toe and the midfoot has largely resolved; Eagle cather to R subclavian Neuro: alert and oriented x3, decreased sensation to light touch bilateral lower extremities Psych: appropriate affect DS: Data Data Completed and Pending Completed studies during hospitalization [Text1]: Laboratory Results WBC 9.0 X10*3/uL (4.8-10.8) 12/07/20 07:45 RBC 4.57 X10*6/uL (4.60-5.80) L 12/07/20 07:45 Hgb 12.6 g/dl (14.0-18.0) L 12/07/20 07:45 Hct 38.3 % (42-52) L 12/07/20 07:45 MCV 83.8 fL (80-98) 12/07/20 07:45 MCH 27.6 pg (27.0-33.0) 12/07/20 07:45 MCHC 32.9 g/dl (31.0-36.0) 12/07/20 07:45 RDW 13.6 % (11.0-16.0) 12/07/20 07:45 Plt Count 319 X10*3/uL (160-400) 12/07/20 07:45 MPV 9.2 fL (9.4-12.4) L 12/07/20 07:45 Immature Gran % (Auto) 0.7 % (0.0-0.4) H 12/04/20 05:54 Neut % (Auto) 61.2 % (45-73) 12/04/20 05:54 Lymph % (Auto) 17.0 % (20-40) L 12/04/20 05:54 Lanier % (Auto) 17.8 % (2-11) H 12/04/20 05:54 Eos % (Auto) 2.3 % (0-4) 12/04/20 05:54 Baso % (Auto) 1.0 % (0-2) 12/04/20 05:54 Lymph # (Auto) 1.4 X10*3/uL (1.2-4.9) 12/04/20 05:54 Lanier # (Auto) 1.5 X10*3/uL (0.1-1.2) H 12/04/20 05:54 Eos # (Auto) 0.2 X10*3/uL (0.0-0.4) 12/04/20 05:54 Baso # (Auto) 0.1 X10*3/uL (0.0-0.2) 12/04/20 05:54 Abs Immat Gran (auto) 0.06 X10*3/uL (0.00-0.03) H 12/04/20 05:54 Absolute Neuts (auto) 5.0 X10*3/uL (2.0-8.3) 12/04/20 05:54 Absolute Nucleated RBC 0.000 X10*3/uL (0.0-0.012) 12/07/20 07:45 Nucleated RBC % (auto) 0.0 /100WBC (0.0-0.2) 12/07/20 07:45 Smear Tech's Comments VERIFIED 12/03/20 12:25 ESR 83 MM/HR (0-15) H 12/07/20 07:45 PT 13.1 SEC (9.9-13.0) H 12/06/20 06:36 INR 1.2 (0.9-1.1) H 12/06/20 06:36 APTT 29.1 SEC (24.1-38.0) 12/06/20 06:36 Sodium 140 mmol/L (135-145) 12/07/20 07:45 Potassium 4.5 mmol/L (3.3-5.1) 12/07/20 07:45 Chloride 107 mmol/L (96-108) 12/07/20 07:45 Carbon Dioxide 20 mmol/L (22-29) L 12/07/20 07:45 Anion Gap 18 (12-20) 12/07/20 07:45 BUN 27 mg/dL (9-16) H 12/07/20 07:45 Creatinine 2.12 mg/dL (0.5-1.4) H 12/07/20 07:45 Estim Creat Clear Calc 35.9 12/07/20 07:45 Estimated GFR 30 12/07/20 07:45 Random Glucose 130 mg/dL (60-115) H 12/07/20 07:45 Lactic Acid 1.5 mmol/L (0.5-2.0) 12/03/20 12:25 Calcium 8.9 mg/dL (8.4-10.2) D 12/07/20 07:45 C-Reactive Protein 13.58 mg/dL (< or = 0.50) H 12/06/20 06:36 Urine Color YELLOW 12/03/20 12:47 Urine Appearance HAZY 12/03/20 12:47 Urine pH 6.0 (5.0-8.0) 12/03/20 12:47 Ur Specific Rock 1.015 (1.005-1.025) 12/03/20 12:47 Urine Protein 2+ MG/DL (NEG-TRACE) H 12/03/20 12:47 Urine Glucose (UA) NEG MG/DL (NEG) 12/03/20 12:47 Urine Ketones NEG MG/DL (NEG) 12/03/20 12:47 Urine Blood NEG (NEG) 12/03/20 12:47 Urine Nitrite NEG (NEG) 12/03/20 12:47 Ur Leukocyte Esterase NEG (NEG) 12/03/20 12:47 Urine RBC 0-2 /HPF (0) 12/03/20 12:47 Urine WBC 0 /HPF (0-4) 12/03/20 12:47 Ur Squamous Epith Cells 1+ /LPF 12/03/20 12:47 Amorphous Sediment TRACE /LPF 12/03/20 12:47 Urine Bacteria NONE /LPF 12/03/20 12:47 Hyaline Casts 0-2 /LPF 12/03/20 12:47 Granular Casts 0-2 /LPF 12/03/20 12:47 Urine Mucus 1+ /LPF 12/03/20 12:47 Vancomycin Trough 23.8 mcg/mL (10.0-20.0) H 12/06/20 14:16 COVID-19 (SHIVAM) Negative (Negative) 12/03/20 12:25 COVID-19 Clin Com See Note 12/03/20 12:25 Impressions Foot X-Ray 12/03/20 11:52 IMPRESSION: 1. Comminuted fracture medial base first distal phalanx extending to the articular surface. Overlying artifact from soft tissue dressing. In the setting of local soft tissue infection in this area, this may represent pathologic fracture. 2. Remainder of bony structures appear intact. Foot MRI 12/04/20 13:20 IMPRESSION: 1. Soft tissue defect/ulceration on the plantar aspect of the 1st distal phalanx. Associated 1st toe soft tissue swelling, edema/cellulitis present. No drainable fluid collections. Question sinus tract extending into the soft tissues to the underlying bone, described above. There appears to be foci of air in the dorsal soft tissues of the distal 1st toe, described above. 2. Abnormal edema and enhancement diffusely of the 1st distal phalanx. Bony irregularity, bony fragmentation/fracture of the distal phalanx is better appreciated on the previous x-ray. Finding is highly suspicious for osteomyelitis in the appropriate clinical circumstance. 3. Marked 1st interphalangeal joint space narrowing. Septic arthritis cannot be excluded. No significant joint effusion is appreciated. 4. Mild edema/enhancement in the distal 1st proximal phalanx, could reflect reactive edema, or early osteomyelitis. 5. The distal aspect of the 1st toe extensor tendon is not clearly visualized, integrity is not confirmed. 6. Additional findings and details, as above. Discharge Plan Discharge Patient Disposition: Home Health Service Discharge Diagnosis: osteomyelitis Referrals: [facility] Wound Care Management [Provider Group] - 1 Week Jos Mirza MD [Primary Care Provider] - 1 Week Hazel Gamboa MD [Physician] - 1 Week Haim Thakur MD [Physician] - 1 Week Discharge Medications: New ertapenem 1 gram recon soln 1 g IV DAILY Qty: 37 RF: 0 Continued nifedipine 90 mg tablet extended release 90 mg PO DAILY RF: 0 vitamin B complex [B Complex-Vitamin B12] Tablet 1 tab PO DAILY RF: 0 calcium carbonate [Calcium 600] 600 mg calcium (1,500 mg) tablet 600 mg PO DAILY RF: 0 cholecalciferol (vitamin D3) 25 mcg (1,000 unit) capsule 25 mcg PO DAILY RF: 0 ascorbic acid (vitamin C) 1,000 mg tablet 500 mg PO DAILY RF: 0 omega-3 fatty acids [Fish Oil Concentrate] 1,000 mg capsule 1,000 mg PO DAILY RF: 0 Adult 50 Plus Probiotic 4 billion cell capsule 4,000 mmu cells PO DAILY RF: 0 Discharge Orders: Discharge Order (Routine); Ordered 12/07/20 Ordered By: Sam Eller Diet: advance to usual diet and diabetic diet Activity on Discharge: As tolerated Stand Alone Forms: Patient Portal Discharge page Care Plan Goals: cure of diabetic foot infection/osteomyelitis Health Concerns: DM foot infection/osteomyelitis/septic arthritis Plan of Treatment: ertapenem 1g IV daily through Eagle catheter, end date 01/13/21 weekly labs: CBCd, BMP, ESR, CRP follow ups: - Primary Care, 1 week - Wound Care, 1 week - Infectious Disease, 2 weeks - General Surgery 2 weeks Assessment: as above Patient Instructions: Osteomyelitis (DC), Tunneled Central Lines (DC)
--- NOTE | 2020-12-07 12:06 | MHC.CM.PN ---
IMM 12/07/20 Male 80 DX DM foot infection. Patient is discharged today to home with IV ABX. [facility] is the [place] provider. [facility] will provide Home care services. He will have Family transportation.
== END 2020-12-07 14:57 | disposition home health service (06) | DRG 872 ==
LOC: HO.ED 13:30 → HO.EDOVER 16:04 → HO.S3 19:01
PROVIDERS: Radiology Diagnostic Radiology; Admitting Provider Family Medicine; Emergency Provider Emergency Medicine; PCP Internal Medicine; Visit Provider Family Medicine
PROC: 0JH63XZ Insertion of Tunneled Vascular Access Device into Chest Subcutaneous Tissue and Fascia, Percutaneous Approach (ICD-10-PCS; principal; 2020-12-06 08:30)
DX: A41.9 Sepsis, unspecified organism (principal); L03.115 Cellulitis of right lower limb; M86.9 Osteomyelitis, unspecified; M00.9 Pyogenic arthritis, unspecified; E11.69 Type 2 diabetes mellitus with other specified complication; E11.42 Type 2 diabetes mellitus with diabetic polyneuropathy; I12.9 Hypertensive chronic kidney disease with stage 1 through stage 4 chronic kidney disease, or unspecified chronic kidney disease; E11.22 Type 2 diabetes mellitus with diabetic chronic kidney disease; N18.30 Chronic kidney disease, stage 3 unspecified; E11.621 Type 2 diabetes mellitus with foot ulcer; L97.519 Non-pressure chronic ulcer of other part of right foot with unspecified severity; Z20.822 Contact with and (suspected) exposure to COVID-19; Z79.899 Other long term (current) drug therapy
CPT/HCPCS: 36415; 36558; 73620; 73720; 80048; 80202; 81001; 83605; 85025; 85027; 85610; 85652; 85730; 86140; 87040; 87635; 99152; 99153; 99285; A9585; C1769; J1335; J2543; J3370

== ENCOUNTER 2020-12-10 12:46 | Outpatient (REF) | payer MEDICARE, OTHER, SELFPAY ==
[2020-12-10 12:55] LABS: Hematocrit 38.2 % (42-52); Hemoglobin 12.2 g/dl (14.0-18.0); Mean Corpuscular HGB Conc 31.9 g/dl (31.0-36.0); Mean Corpuscular Hemoglobin 27.1 pg (27.0-33.0); Mean Corpuscular Volume 84.9 fL (80-98); Mean Platelet Volume 9.5 fL (9.4-12.4); Platelet Count 394 X10*3/uL (160-400); Red Cell Distribution Width 13.6 % (11.0-16.0); White Blood Count 11.3 X10*3/uL (4.8-10.8)
[2020-12-10 13:09] LABS: Basophils Absolute Auto 0.1 X10*3/uL (0.0-0.2); Eosinophils Absolute Auto 0.6 X10*3/uL (0.0-0.4); Eosinophils Percent Auto 4.9 % (0-4); Imm Gran Abs Auto 0.24 X10*3/uL (0.00-0.03); Imm Gran Pct Auto 2.1 % (0.0-0.4); Lymphocytes Absolute Auto 2.1 X10*3/uL (1.2-4.9); Lymphocytes Percent Auto 18.2 % (20-40); MANUAL DIFF FLAG NO; Monocytes Percent Auto 9.1 % (2-11); Neutrophils Absolute Auto 7.3 X10*3/uL (2.0-8.3); Neutrophils Percent Auto 64.7 % (45-73)
[2020-12-10 13:49] LABS: Anion Gap 15 (12-20); Blood Urea Nitrogen 29 mg/dL (9-16); C Reactive Protein 4.05 mg/dL (< or = 0.50); Calcium 9.7 mg/dL (8.4-10.2); Carbon Dioxide 25 mmol/L (22-29); Chloride 102 mmol/L (96-108); Estimated Glomerular Filt Rate 32; Glucose Random 109 mg/dL (60-115); Potassium 4.9 mmol/L (3.3-5.1); Sodium 137 mmol/L (135-145)
[2020-12-10 14:06] LABS: Erythrocyte Sedimentation Rate 83 MM/HR (0-15)
== END 2020-12-10 12:47 | disposition home or self-care (01) ==
LOC: HO.LNP 12:46
PROVIDERS: Visit Provider Internal Medicine
DX: E11.628 Type 2 diabetes mellitus with other skin complications (principal)
CPT/HCPCS: 80048; 85025; 85652; 86140

== ENCOUNTER → 2020-12-12 10:17 | Outpatient (BNVA) | payer MEDICARE, OTHER, SELFPAY | PROVIDERS: PCP Internal Medicine; Visit Provider Internal Medicine Cardiovascular Disease | DX: I35.0 Nonrheumatic aortic (valve) stenosis (principal); R00.0 Tachycardia, unspecified; E11.65 Type 2 diabetes mellitus with hyperglycemia; E11.22 Type 2 diabetes mellitus with diabetic chronic kidney disease; I12.9 Hypertensive chronic kidney disease with stage 1 through stage 4 chronic kidney disease, or unspecified chronic kidney disease; N18.9 Chronic kidney disease, unspecified; L08.89 Other specified local infections of the skin and subcutaneous tissue; M86.9 Osteomyelitis, unspecified; Z91.040 Latex allergy status; Z79.899 Other long term (current) drug therapy | CPT/HCPCS: 99212 ==

== ENCOUNTER 2020-12-17 11:16 | Outpatient (REF) | payer MEDICARE, OTHER, SELFPAY ==
[2020-12-17 11:20] LABS: MANUAL DIFF FLAG NO
[2020-12-17 11:27] LABS: Basophils Absolute Auto 0.1 X10*3/uL (0.0-0.2); Basophils Percent Auto 0.9 % (0-2); Eosinophils Absolute Auto 0.3 X10*3/uL (0.0-0.4); Eosinophils Percent Auto 2.7 % (0-4); Hematocrit 35.5 % (42-52); Hemoglobin 11.6 g/dl (14.0-18.0); Imm Gran Abs Auto 0.07 X10*3/uL (0.00-0.03); Imm Gran Pct Auto 0.7 % (0.0-0.4); Lymphocytes Absolute Auto 1.7 X10*3/uL (1.2-4.9); Mean Corpuscular HGB Conc 32.7 g/dl (31.0-36.0); Mean Corpuscular Hemoglobin 27.4 pg (27.0-33.0); Mean Corpuscular Volume 83.9 fL (80-98); Mean Platelet Volume 9.7 fL (9.4-12.4); Monocytes Absolute Auto 0.9 X10*3/uL (0.1-1.2); Neutrophils Absolute Auto 7.3 X10*3/uL (2.0-8.3); Neutrophils Percent Auto 70.7 % (45-73); Platelet Count 414 X10*3/uL (160-400); Red Blood Count 4.23 X10*6/uL (4.60-5.80); Red Cell Distribution Width 13.1 % (11.0-16.0); White Blood Count 10.4 X10*3/uL (4.8-10.8)
[2020-12-17 12:03] LABS: Anion Gap 16 (12-20); Blood Urea Nitrogen 35 mg/dL (9-16); C Reactive Protein 14.23 mg/dL (< or = 0.50); Calcium 9.8 mg/dL (8.4-10.2); Carbon Dioxide 26 mmol/L (22-29); Chloride 100 mmol/L (96-108); Estimated Glomerular Filt Rate 32; Glucose Random 122 mg/dL (60-115); Potassium 4.8 mmol/L (3.3-5.1); Sodium 137 mmol/L (135-145)
[2020-12-17 13:10] LABS: Erythrocyte Sedimentation Rate 91 MM/HR (0-15)
== END 2020-12-17 11:17 | disposition home or self-care (01) ==
LOC: HO.HVNA 11:16
PROVIDERS: Visit Provider Internal Medicine
DX: E11.69 Type 2 diabetes mellitus with other specified complication (principal)
CPT/HCPCS: 36415; 80048; 85025; 85652; 86140

== ENCOUNTER 2020-12-24 12:22 | Outpatient (REF) | payer MEDICARE, OTHER, SELFPAY ==
[2020-12-24 12:26] LABS: MANUAL DIFF FLAG NO
[2020-12-24 12:32] LABS: Basophils Absolute Auto 0.1 X10*3/uL (0.0-0.2); Basophils Percent Auto 0.8 % (0-2); Eosinophils Absolute Auto 0.3 X10*3/uL (0.0-0.4); Eosinophils Percent Auto 2.6 % (0-4); Hematocrit 35.4 % (42-52); Hemoglobin 11.4 g/dl (14.0-18.0); Imm Gran Abs Auto 0.16 X10*3/uL (0.00-0.03); Imm Gran Pct Auto 1.4 % (0.0-0.4); Lymphocytes Absolute Auto 1.7 X10*3/uL (1.2-4.9); Lymphocytes Percent Auto 15.3 % (20-40); Mean Corpuscular HGB Conc 32.2 g/dl (31.0-36.0); Mean Corpuscular Hemoglobin 26.8 pg (27.0-33.0); Mean Corpuscular Volume 83.3 fL (80-98); Mean Platelet Volume 9.3 fL (9.4-12.4); Monocytes Absolute Auto 1.2 X10*3/uL (0.1-1.2); Monocytes Percent Auto 10.6 % (2-11); Neutrophils Absolute Auto 7.7 X10*3/uL (2.0-8.3); Neutrophils Percent Auto 69.3 % (45-73); Platelet Count 370 X10*3/uL (160-400); Red Blood Count 4.25 X10*6/uL (4.60-5.80); Red Cell Distribution Width 13.1 % (11.0-16.0); White Blood Count 11.1 X10*3/uL (4.8-10.8)
[2020-12-24 12:54] LABS: Anion Gap 16 (12-20); Blood Urea Nitrogen 25 mg/dL (9-16); C Reactive Protein 8.95 mg/dL (< or = 0.50); Calcium 9.9 mg/dL (8.4-10.2); Carbon Dioxide 26 mmol/L (22-29); Chloride 100 mmol/L (96-108); Estimated Glomerular Filt Rate 33; Glucose Random 115 mg/dL (60-115); Potassium 4.6 mmol/L (3.3-5.1); Sodium 137 mmol/L (135-145)
[2020-12-24 13:17] LABS: Erythrocyte Sedimentation Rate 90 MM/HR (0-15)
== END 2020-12-24 12:23 | disposition home or self-care (01) ==
LOC: HO.HVNA 12:22
PROVIDERS: Visit Provider Internal Medicine
DX: M86.171 Other acute osteomyelitis, right ankle and foot (principal); Z79.2 Long term (current) use of antibiotics
CPT/HCPCS: 36415; 80048; 85025; 85652; 86140

== ENCOUNTER → 2020-12-25 11:02 | Outpatient (BNVA) | payer MEDICARE, OTHER, SELFPAY | PROVIDERS: Visit Provider Internal Medicine | DX: E11.628 Type 2 diabetes mellitus with other skin complications (principal); L08.9 Local infection of the skin and subcutaneous tissue, unspecified | CPT/HCPCS: 99212 ==

== ENCOUNTER 2020-12-31 13:37 | Outpatient (REF) | payer MEDICARE, OTHER, SELFPAY ==
[2020-12-31 13:41] LABS: MANUAL DIFF FLAG NO
[2020-12-31 13:51] LABS: Basophils Absolute Auto 0.1 X10*3/uL (0.0-0.2); Basophils Percent Auto 0.6 % (0-2); Eosinophils Absolute Auto 0.4 X10*3/uL (0.0-0.4); Eosinophils Percent Auto 4.3 % (0-4); Hematocrit 36.9 % (42-52); Hemoglobin 11.9 g/dl (14.0-18.0); Imm Gran Abs Auto 0.12 X10*3/uL (0.00-0.03); Imm Gran Pct Auto 1.3 % (0.0-0.4); Lymphocytes Absolute Auto 1.8 X10*3/uL (1.2-4.9); Lymphocytes Percent Auto 19.2 % (20-40); Mean Corpuscular HGB Conc 32.2 g/dl (31.0-36.0); Mean Corpuscular Volume 83.9 fL (80-98); Mean Platelet Volume 9.6 fL (9.4-12.4); Monocytes Absolute Auto 0.7 X10*3/uL (0.1-1.2); Monocytes Percent Auto 7.6 % (2-11); Neutrophils Absolute Auto 6.4 X10*3/uL (2.0-8.3); Platelet Count 288 X10*3/uL (160-400); Red Cell Distribution Width 13.3 % (11.0-16.0); White Blood Count 9.6 X10*3/uL (4.8-10.8)
[2020-12-31 14:28] LABS: Erythrocyte Sedimentation Rate 67 MM/HR (0-15)
[2020-12-31 14:39] LABS: Anion Gap 18 (12-20); Blood Urea Nitrogen 30 mg/dL (9-16); C Reactive Protein 1.13 mg/dL (< or = 0.50); Calcium 8.9 mg/dL (8.4-10.2); Carbon Dioxide 22 mmol/L (22-29); Chloride 104 mmol/L (96-108); Estimated Glomerular Filt Rate 31; Glucose Random 196 mg/dL (60-115); Sodium 140 mmol/L (135-145)
== END 2020-12-31 13:38 | disposition home or self-care (01) ==
LOC: HO.HVNA 13:37
PROVIDERS: Visit Provider Internal Medicine
DX: M86.171 Other acute osteomyelitis, right ankle and foot (principal)
CPT/HCPCS: 36415; 80048; 85025; 85652; 86140

== ENCOUNTER 2021-01-07 12:42 | Outpatient (REF) | payer MEDICARE, OTHER, SELFPAY ==
[2021-01-07 12:45] LABS: MANUAL DIFF FLAG NO
[2021-01-07 12:57] LABS: Basophils Absolute Auto 0.1 X10*3/uL (0.0-0.2); Basophils Percent Auto 1.2 % (0-2); Eosinophils Absolute Auto 0.5 X10*3/uL (0.0-0.4); Eosinophils Percent Auto 6.6 % (0-4); Hematocrit 35.2 % (42-52); Hemoglobin 11.4 g/dl (14.0-18.0); Imm Gran Abs Auto 0.06 X10*3/uL (0.00-0.03); Imm Gran Pct Auto 0.8 % (0.0-0.4); Lymphocytes Absolute Auto 1.9 X10*3/uL (1.2-4.9); Lymphocytes Percent Auto 24.4 % (20-40); Mean Corpuscular HGB Conc 32.4 g/dl (31.0-36.0); Mean Corpuscular Volume 83.4 fL (80-98); Mean Platelet Volume 10.2 fL (9.4-12.4); Monocytes Absolute Auto 0.8 X10*3/uL (0.1-1.2); Monocytes Percent Auto 10.4 % (2-11); Neutrophils Absolute Auto 4.4 X10*3/uL (2.0-8.3); Neutrophils Percent Auto 56.6 % (45-73); Platelet Count 291 X10*3/uL (160-400); Red Blood Count 4.22 X10*6/uL (4.60-5.80); Red Cell Distribution Width 14.1 % (11.0-16.0); White Blood Count 7.8 X10*3/uL (4.8-10.8)
[2021-01-07 13:39] LABS: Anion Gap 16 (12-20); Blood Urea Nitrogen 28 mg/dL (9-16); C Reactive Protein 1.27 mg/dL (< or = 0.50); Carbon Dioxide 24 mmol/L (22-29); Chloride 104 mmol/L (96-108); Estimated Glomerular Filt Rate 32; Glucose Random 101 mg/dL (60-115); Potassium 4.7 mmol/L (3.3-5.1); Sodium 139 mmol/L (135-145)
[2021-01-07 14:06] LABS: Erythrocyte Sedimentation Rate 48 MM/HR (0-15)
== END 2021-01-07 12:43 | disposition home or self-care (01) ==
LOC: HO.HVNA 12:42
PROVIDERS: Visit Provider Internal Medicine
DX: M86.171 Other acute osteomyelitis, right ankle and foot (principal)
CPT/HCPCS: 36415; 80048; 85025; 85652; 86140

== ENCOUNTER → 2021-01-11 10:32 | Outpatient (BNVA) | payer MEDICARE, OTHER, SELFPAY | PROVIDERS: Visit Provider Internal Medicine | DX: E11.628 Type 2 diabetes mellitus with other skin complications (principal); L08.9 Local infection of the skin and subcutaneous tissue, unspecified | CPT/HCPCS: 99212 ==

== ENCOUNTER 2021-01-15 07:47 | Outpatient (REF) | payer MEDICARE, OTHER, SELFPAY ==
[2021-01-15 11:40] LABS: Estimated Average Glucose 140 mg/dL; Hemoglobin A1c % 6.5 %
[2021-01-15 11:57] LABS: Alanine Aminotransferase 21 U/L (0-40); Albumin Level 4.1 g/dL (3.5-5.0); Alkaline Phosphatase 84 U/L (39-117); Anion Gap 16 (12-20); Aspartate Amino Transferase 19 U/L (5-37); Bilirubin Total 0.6 mg/dL (0.0-1.0); Blood Urea Nitrogen 33 mg/dL (9-16); Calcium 9.2 mg/dL (8.4-10.2); Carbon Dioxide 23 mmol/L (22-29); Chloride 106 mmol/L (96-108); Cholesterol 242 mg/dL; Estimated Glomerular Filt Rate 34; Glucose Fasting 110 mg/dL (60-99); HDL Cholesterol 48 mg/dL; LDL Cholesterol Calculated 159 mg/dl; Potassium 4.7 mmol/L (3.3-5.1); Sodium 140 mmol/L (135-145); Total Protein 7.7 g/dL (6.5-8.0); Triglycerides 177 mg/dL
[2021-01-15 12:00] LABS: Creatinine Urine 87.19 mg/dL; Microalbum/Creatinine Ratio Ur 303.9 ug/mg cr
== END 2021-01-15 07:48 | disposition home or self-care (01) ==
LOC: HO.MANLDS 07:47
PROVIDERS: PCP Internal Medicine; Visit Provider Internal Medicine
DX: E11.9 Type 2 diabetes mellitus without complications (principal)
CPT/HCPCS: 36415; 80053; 80061; 82043; 83036

== ENCOUNTER 2021-01-17 13:46 | Outpatient (REF) | payer MEDICARE, OTHER, SELFPAY ==
--- NOTE | ~2021-01-17 | IR_ITS ---
EXAMINATION: PROLINE CATHETER REMOVAL CLINICAL INFORMATION: No longer needed for antibiotics. COMPARISON: December 06, 2020 TECHNIQUE: Removal of right internal jugular central venous catheter FINDINGS: Informed consent was obtained from the patient prior to the procedure. During this process, the procedure and potential alternatives were explained, along with the intended outcome and benefits. The risks of the procedure, as well as the risk of not doing the procedure, were discussed. The patient was given the opportunity to ask questions regarding the procedure and appeared competent to make medical decisions. A signed consent form which documents this discussion was placed in the medical record. Using sterile technique the indwelling ProLine catheter cuff was blunt dissected out and catheter removed in its entirety. Patient tolerated procedure without difficulty. IR/IR cvc remove any age IMPRESSION: Proline catheter removal.
== END 2021-01-17 13:47 | disposition home or self-care (01) ==
LOC: HO.RADIR 13:46
PROVIDERS: PCP Internal Medicine; Visit Provider Internal Medicine
DX: Z13.89 Encounter for screening for other disorder (principal)

== ENCOUNTER 2021-04-10 14:19 | Outpatient (REF) | payer MEDICARE, OTHER, SELFPAY ==
[2021-04-10 18:59] LABS: Estimated Average Glucose 137 mg/dL; Hemoglobin A1c % 6.4 %
== END 2021-04-10 14:20 | disposition home or self-care (01) ==
LOC: HO.MANLDS 14:19
PROVIDERS: PCP Internal Medicine; Visit Provider Internal Medicine
DX: E11.9 Type 2 diabetes mellitus without complications (principal)
CPT/HCPCS: 36415; 83036

== ENCOUNTER 2021-04-22 10:09 | Outpatient (REF) | payer MEDICARE, OTHER, SELFPAY ==
[2021-04-22 10:30] LABS: MANUAL DIFF FLAG NO
[2021-04-22 11:14] LABS: Basophils Absolute Auto 0.1 X10*3/uL (0.0-0.2); Eosinophils Absolute Auto 0.5 X10*3/uL (0.0-0.4); Eosinophils Percent Auto 4.4 % (0-4); Hematocrit 41.3 % (42.0-52.0); Hemoglobin 13.7 g/dl (14.0-18.0); Imm Gran Abs Auto 0.07 X10*3/uL (0.00-0.03); Imm Gran Pct Auto 0.6 % (0.0-0.4); Lymphocytes Absolute Auto 2.5 X10*3/uL (1.2-4.9); Lymphocytes Percent Auto 22.8 % (20-40); Mean Corpuscular HGB Conc 33.2 g/dl (31.0-36.0); Mean Corpuscular Volume 84.5 fL (80.0-98.0); Mean Platelet Volume 10.2 fL (9.4-12.4); Monocytes Percent Auto 9.6 % (2-11); Neutrophils Absolute Auto 6.7 x10*3/uL (2.0-8.3); Neutrophils Percent Auto 61.6 % (45-73); Platelet Count 279 X10*3/uL (160-400); Red Blood Count 4.89 X10*6/uL (4.60-5.80); Red Cell Distribution Width 13.8 % (11.0-16.0); White Blood Count 10.9 X10*3/uL (4.8-10.8)
[2021-04-22 12:03] LABS: Appearance Urine CLEAR; Color Urine YELLOW; Glucose Urine UA NEG (NEG); Leukocyte Esterase Urine NEG (NEG); Nitrite Urine NEG (NEG); Urine Blood NEG (NEG); Urine Ketones NEG (NEG); Urine Protein 2+ MG/DL (NEG-TRACE)
[2021-04-22 12:14] LABS: Albumin Level 4.3 g/dL (3.5-5.0); Anion Gap 16 (12-20); Blood Urea Nitrogen 35 mg/dL (9-16); Calcium 9.9 mg/dL (8.4-10.2); Carbon Dioxide 22 mmol/L (22-29); Chloride 104 mmol/L (96-108); Estimated Glomerular Filt Rate 30; Magnesium 1.8 mg/dL (1.6-2.6); Phosphorus 3.3 mg/dL (2.7-4.5); Potassium 4.8 mmol/L (3.3-5.1); Sodium 137 mmol/L (135-145)
[2021-04-22 12:20] LABS: Vitamin D 25-OH Total 57.1 ng/mL (>30)
[2021-04-22 12:53] LABS: Creatinine Urine 108.68 mg/dL; Microalbum/Creatinine Ratio Ur 727.8 ug/mg cr; Total Protein Urine Random 125 mg/dL (<12)
[2021-04-22 12:57] LABS: RBC Urine 0-2 /HPF (0); Renal Epithelial Cells Urine 1+ /LPF; Squamous Epithelial Cell Urine 1+ /LPF; WBC Urine 0-2 /HPF (0-4)
[2021-04-23 14:51] LABS: Calcium (PTHI) 9.9 mg/dL (8.6-10.3); PTHI 47 pg/mL (14-64)
== END 2021-04-22 10:10 | disposition home or self-care (01) ==
LOC: HO.LAB 10:09
PROVIDERS: PCP Internal Medicine; Visit Provider Internal Medicine Nephrology
DX: E11.21 Type 2 diabetes mellitus with diabetic nephropathy (principal); N18.32 Chronic kidney disease, stage 3b; N25.0 Renal osteodystrophy
CPT/HCPCS: 36415; 80051; 81001; 81003; 82040; 82043; 82306; 82310; 82565; 83735; 83970; 84100; 84156; 84520; 85025; 87086

== ENCOUNTER 2021-05-06 08:48 | Outpatient (REF) | payer MEDICARE, OTHER, SELFPAY ==
--- NOTE | ~2021-05-06 | FL_ITS ---
EXAMINATION: FL BARIUM SWALLOW CLINICAL INFORMATION: Dysphagia. COMPARISON: None. TECHNIQUE: Barium swallow examination is performed using fluoroscopic evaluation in addition to multiple fluoroscopic spot views. The patient is imaged both upright and prone and using both thick and thin sulfate along with effervescent granules. Fluoroscopy time: 2.4 minutes DAP: 17.505 Gy-cm2 Images: 2.4 FINDINGS: Following oral administration of thick barium and barium-coated turkey as solid food, there is normal propagation of bolus from the oral cavity through the esophagus and into the stomach without any evidence of obstruction or narrowing. There is slow peristalsis visualized in the distal esophagus. On placing patient supine and prone lying, there is a small hiatal hernia. No gastroesophageal reflux seen. The course, caliber and peristalsis of stomach and the duodenum are normal. FL/FL barium swallow IMPRESSION: Small hiatal hernia without any reflux. Diminished distal esophagus peristalsis with occasional secondary tertiary peristalsis visualized. No obstruction or stricture seen.
== END 2021-05-06 08:49 | disposition home or self-care (01) ==
LOC: HO.XRAY 08:48
PROVIDERS: PCP Internal Medicine; Visit Provider Internal Medicine Gastroenterology
DX: R13.10 Dysphagia, unspecified (principal)
CPT/HCPCS: 74220

== ENCOUNTER 2021-07-05 12:01 | Outpatient (REF) | payer MEDICARE, OTHER, SELFPAY ==
[2021-07-05 14:00] LABS: CDiff Gene PCR POSITIVE (Negative)
[2021-07-05 16:02] LABS: CDIFF Internal ctrl Dots and bkg OK (V)
[2021-07-05 16:13] LABS: CDiff Toxin Positive (Negative)
== END 2021-07-05 12:02 | disposition home or self-care (01) ==
LOC: HO.MANLDS 12:01
PROVIDERS: PCP Internal Medicine; Visit Provider Internal Medicine
DX: R19.7 Diarrhea, unspecified (principal)
CPT/HCPCS: 36415; 87324; 87493

== ENCOUNTER → 2021-07-29 12:29 | Outpatient (BNVA) | payer MEDICARE, OTHER, SELFPAY | PROVIDERS: PCP Internal Medicine; Visit Provider Internal Medicine Cardiovascular Disease | DX: I47.1 Supraventricular tachycardia (principal); I10 Essential (primary) hypertension | CPT/HCPCS: 93005; 99212 ==

== ENCOUNTER 2021-08-19 07:57 | Outpatient (REF) | payer MEDICARE, OTHER, SELFPAY ==
[2021-08-19 11:41] LABS: Estimated Average Glucose 143 mg/dL; Hemoglobin A1c % 6.6 %
[2021-08-19 11:43] LABS: Alanine Aminotransferase 16 U/L (0-40); Albumin Level 4.2 g/dL (3.5-5.0); Alkaline Phosphatase 77 U/L (39-117); Anion Gap 14 (12-20); Aspartate Amino Transferase 16 U/L (5-37); Bilirubin Total 0.6 mg/dL (0.0-1.0); Blood Urea Nitrogen 38 mg/dL (9-16); Calcium 9.6 mg/dL (8.4-10.2); Carbon Dioxide 24 mmol/L (22-29); Chloride 107 mmol/L (96-108); Cholesterol 202 mg/dL; Estimated Glomerular Filt Rate 28; Glucose Fasting 135 mg/dL (60-99); HDL Cholesterol 44 mg/dL; LDL Cholesterol Calculated 129 mg/dl; Potassium 4.6 mmol/L (3.3-5.1); Sodium 140 mmol/L (135-145); Total Protein 7.7 g/dL (6.5-8.0); Triglycerides 145 mg/dL
[2021-08-19 12:23] LABS: Creatinine Urine 78.34 mg/dL; Microalbum/Creatinine Ratio Ur 576.9 ug/mg cr
== END 2021-08-19 07:58 | disposition home or self-care (01) ==
LOC: HO.MANLDS 07:57
PROVIDERS: PCP Internal Medicine; Visit Provider Internal Medicine
DX: E11.9 Type 2 diabetes mellitus without complications (principal)
CPT/HCPCS: 36415; 80053; 80061; 82043; 83036

== ENCOUNTER 2021-10-22 07:02 | Outpatient (REF) | payer MEDICARE, OTHER, SELFPAY ==
[2021-10-22 07:36] LABS: MANUAL DIFF FLAG NO
[2021-10-22 08:01] LABS: Basophils Absolute Auto 0.1 X10*3/uL (0.0-0.2); Basophils Percent Auto 1.1 % (0-2); Eosinophils Absolute Auto 0.5 X10*3/uL (0.0-0.4); Eosinophils Percent Auto 5.8 % (0-4); Hematocrit 39.4 % (42.0-52.0); Hemoglobin 12.9 g/dl (14.0-18.0); Imm Gran Abs Auto 0.04 X10*3/uL (0.00-0.03); Imm Gran Pct Auto 0.4 % (0.0-0.4); Lymphocytes Absolute Auto 2.5 X10*3/uL (1.2-4.9); Lymphocytes Percent Auto 27.1 % (20-40); Mean Corpuscular HGB Conc 32.7 g/dl (31.0-36.0); Mean Corpuscular Hemoglobin 27.7 pg (27.0-33.0); Mean Corpuscular Volume 84.7 fL (80.0-98.0); Mean Platelet Volume 9.9 fL (9.4-12.4); Monocytes Percent Auto 10.8 % (2-11); Neutrophils Percent Auto 54.8 % (45-73); Platelet Count 267 X10*3/uL (160-400); Red Blood Count 4.65 X10*6/uL (4.60-5.80); Red Cell Distribution Width 14.1 % (11.0-16.0); White Blood Count 9.1 X10*3/uL (4.8-10.8)
[2021-10-22 08:21] LABS: Albumin Level 4.1 g/dL (3.5-5.0); Anion Gap 15 (12-20); Blood Urea Nitrogen 37 mg/dL (9-16); Calcium 10.4 mg/dL (8.4-10.2); Carbon Dioxide 23 mmol/L (22-29); Chloride 104 mmol/L (96-108); Estimated Glomerular Filt Rate 29; Magnesium 2.1 mg/dL (1.6-2.6); Phosphorus 3.3 mg/dL (2.7-4.5); Potassium 4.7 mmol/L (3.3-5.1); Sodium 137 mmol/L (135-145)
[2021-10-22 08:28] LABS: Appearance Urine CLEAR; Color Urine YELLOW; Glucose Urine UA NEG (NEG); Leukocyte Esterase Urine NEG (NEG); Nitrite Urine NEG (NEG); Urine Blood TRACE (NEG); Urine Ketones NEG (NEG); Urine Protein 2+ MG/DL (NEG-TRACE)
[2021-10-22 08:43] LABS: RBC Urine 0-2 /HPF (0)
[2021-10-22 08:44] LABS: WBC Urine 0-2 /HPF (0-4)
[2021-10-22 09:05] LABS: Creatinine Urine 48.74 mg/dL; Total Protein Urine Random 120 mg/dL (<12)
[2021-10-24 13:12] LABS: Calcium (PTHI) 9.5 mg/dL (8.6-10.3); PTHI 68 pg/mL (16-77)
== END 2021-10-22 07:03 | disposition home or self-care (01) ==
LOC: HO.LAB 07:02
PROVIDERS: PCP Internal Medicine; Visit Provider Internal Medicine Nephrology
DX: E11.22 Type 2 diabetes mellitus with diabetic chronic kidney disease (principal); E11.29 Type 2 diabetes mellitus with other diabetic kidney complication; N18.32 Chronic kidney disease, stage 3b; N25.0 Renal osteodystrophy
CPT/HCPCS: 36415; 80051; 81001; 82040; 82043; 82306; 82310; 82565; 83735; 83970; 84100; 84156; 84520; 85025; 87086

== ENCOUNTER → 2022-01-20 11:07 | Outpatient (BNVA) | payer MEDICARE, OTHER, SELFPAY | PROVIDERS: PCP Internal Medicine; Visit Provider Internal Medicine Cardiovascular Disease | DX: I12.9 Hypertensive chronic kidney disease with stage 1 through stage 4 chronic kidney disease, or unspecified chronic kidney disease (principal); I35.0 Nonrheumatic aortic (valve) stenosis; N18.9 Chronic kidney disease, unspecified; Z79.899 Other long term (current) drug therapy | CPT/HCPCS: 93005; 99212 ==

== ENCOUNTER 2022-03-04 10:31 | Day surgery (SDC) | payer MEDICARE, OTHER, SELFPAY ==
[2022-02-27 10:12] VITALS: BMI 28.3
--- NOTE | 2022-02-28 10:44 | P.CONAN_ITS ---
Documented by User: Livier Thorpe NP 02/28/22 10:46 HPI - Anesthesia Eval Consult details Narrative: 81yo M for Upper Endoscopy with Balloon Dilitation Stable at 12/2021 cardiology visit (mild ) PMFSH Active Problems Active Problems: All Active Problems (Updated 07/29/21 @ 15:03 by Issa Degroot MD) SVT (supraventricular tachycardia) (Acute) Septic arthritis of foot (Acute) Diabetic foot infection (Acute) Essential hypertension (Acute) CKD stage 3 due to type 2 diabetes mellitus (Acute) Type 2 diabetes mellitus (Acute) Aortic stenosis (Acute) Hypertension (Acute) Past Medical History Medical History Aortic stenosis Cellulitis of foot Diabetes Diabetic neuropathy Heart murmur History of osteomyelitis HTN (hypertension) Kidney disease Osteomyelitis Sepsis Family History Family History Father Heart attack CVD (cardiovascular disease) Mother Colon cancer Surgical History Surgical History History of hammer toe correction (~05/2021) Hx of colonoscopy Hx of esophagogastroduodenoscopy Social History Social History Household Members: Spouse Housing: House Do you presently have visiting nurse or other home services: Yes Alcohol intake: never Patient Tobacco Use Status: Never used Tobacco Use of substances other than those prescribed or required for medical reasons: No Are you DNR?: No Advance Directives: No Advance Directives Information Provided: Yes service: No Current occupational status: retired Meds Allergies Allergy/AdvReac Type Severity Reaction Status Date / Time latex AdvReac Unknown itchy Uncoded 01/20/22 11:10 since picc line has been put in Home Medications Medication Instructions Recorded Confirmed Last Taken Type ascorbic acid (vitamin C) 1,000 mg 500 mg PO DAILY 06/06/20 02/27/22 Unknown History tablet calcium carbonate 600 mg calcium 600 mg PO DAILY 06/06/20 02/27/22 Unknown History (1,500 mg) tablet (Calcium) cholecalciferol (vitamin D3) 25 25 mcg PO DAILY 06/06/20 02/27/22 Unknown History mcg (1,000 unit) capsule nifedipine 90 mg tablet,extended 90 mg PO BEDTIME 06/06/20 03/04/22 Unknown History release omega-3 fatty acids 1,000 mg 1,000 mg PO DAILY 06/06/20 02/27/22 02/25/22 History capsule (Fish Oil Concentrate) vitamin B complex (B 1 tab PO DAILY 06/06/20 02/27/22 Unknown History Complex-Vitamin B12 tablet) Exam Exam Date and Time: February 28, 2022 1044 Height,Weight and Vital Signs: Height 6 ft 4 in Weight 105.4 kg Pertinent Lab Results Pertinent Lab Results: Laboratory Tests 10/22/21 07:33 WBC 9.1 Hgb 12.9 L Hct 39.4 L Plt Count 267 Narrative Narrative: EKG 12/2021 Sinus rhythm 68 beats per minute, normal EKG, QT interval 404 milliseconds. ECHO 2019 1. Nml LV systolic function with impaired relaxation filling pattern 2. Mild 3. Severe MAC 4. Nml RV systolic pressure 5. No pericardial effusion Assessment and Plan Assessment Anesthesia Assessment: Chart Reviewed Documented by User: Negin Fenton MD 03/04/22 12:12 [facility] Past Medical History Medical History Aortic stenosis Cellulitis of foot Diabetes Diabetic neuropathy Heart murmur History of osteomyelitis HTN (hypertension) Kidney disease Osteomyelitis Sepsis Functional capacity: independent ambulation Family History Family History Father Heart attack CVD (cardiovascular disease) Mother Colon cancer Family history of problems with anesthesia: No Surgical History Surgical History History of hammer toe correction (~05/2021) Hx of colonoscopy Hx of esophagogastroduodenoscopy History of Problems with Anesthesia: No Social History Social History Household Members: Spouse Housing: House Do you presently have visiting nurse or other home services: Yes Alcohol intake: never Patient Tobacco Use Status: Never used Tobacco Use of substances other than those prescribed or required for medical reasons: No Are you DNR?: No Advance Directives: No Advance Directives Information Provided: Yes service: No Current occupational status: retired Meds Allergies Allergy/AdvReac Type Severity Reaction Status Date / Time latex AdvReac Unknown itchy Uncoded 01/20/22 11:10 since picc line has been put in Home Medications Medication Instructions Recorded Confirmed Last Taken Type ascorbic acid (vitamin C) 1,000 mg 500 mg PO DAILY 06/06/20 02/27/22 Unknown History tablet calcium carbonate 600 mg calcium 600 mg PO DAILY 06/06/20 02/27/22 Unknown History (1,500 mg) tablet (Calcium) cholecalciferol (vitamin D3) 25 25 mcg PO DAILY 06/06/20 02/27/22 Unknown History mcg (1,000 unit) capsule nifedipine 90 mg tablet,extended 90 mg PO BEDTIME 06/06/20 03/04/22 Unknown History release omega-3 fatty acids 1,000 mg 1,000 mg PO DAILY 06/06/20 02/27/22 02/25/22 History capsule (Fish Oil Concentrate) vitamin B complex (B 1 tab PO DAILY 06/06/20 02/27/22 Unknown History Complex-Vitamin B12 tablet) Exam Airway Mallampati Class: III TM Dist: >3cm Neck ROM: Full Heart: RRR Lungs: CTA Assessment and Plan Final Anesthetic Review Family History of Problems with Anesthesia: No History of Problems with Anesthesia: No NPO: Yes ASA Class: III Final Preanesthetic Review: No Changes in Pt Med Stat, Meds/Allgs Chart Reviewed, Consent Obtained/Reviewed and Anes Risks/Benef Reviewed Patient Risk: Intermediate Procedure Risk: Low Anesthetic Plan Anesthetic Plan: MAC: Disposition: Standard PACU
[2022-03-04 11:31] VITALS: BP 174/77; PULSE 71; RESP 16; TEMP 36.3; O2SAT 98
[2022-03-04] MEDS: Lactated Ringers 1,000 ML 100 ML IVCONT (11:55)
[2022-03-04 12:00] LABS: Glucose, Whole Blood 126 mg/dL (60-115)
[2022-03-04 12:03] LABS: Anion Gap 16 (12-20); Blood Urea Nitrogen 35 mg/dL (9-16); Calcium 9.6 mg/dL (8.4-10.2); Carbon Dioxide 22 mmol/L (22-29); Chloride 107 mmol/L (96-108); Creatinine Clr Calc Pharmacy 32.7; Estimated Glomerular Filt Rate 27; Glucose Fasting 134 mg/dL (60-99); Potassium 4.9 mmol/L (3.3-5.1); Sodium 140 mmol/L (135-145)
--- NOTE | 2022-03-04 12:27 | MHC.SHP ---
Pre-Procedural Eval Section A Date of Service: 03/04/22 The patient is an INPATIENT: No Changes since office visit: No Cold of Flu in the past 2 weeks, No New Medical Problems, No Changes in Medication and No Patient answered all questions The History & Physical has been completed within 30 days and I have reviewed it.: Yes Section B Chief Complaint: Dysphagia, Allergies: Allergies Allergy/AdvReac Type Severity Reaction Status Date / Time latex AdvReac Unknown itchy Uncoded 01/20/22 11:10 since picc line has been put in Plan I have reviewed the history and physical and performed a pertinent physical examination on my patient. No changes have occurred unless specified.
--- NOTE | 2022-03-04 13:03 | PM.OP ---
Brief Operative Note Date of Service: 03/04/22 Pre-op diagnosis: dysphagia Post-op diagnosis: same Surgeon: Too Casey Anesthesia: MAC Was an Passenger Car Cleaning Supervisor used for this Procedure?: No Estimated blood loss (mL): 5 Pathology: other Condition: stable Disposition: PACU
[2022-03-04 13:07] VITALS: BP 122/72; PULSE 66; RESP 16; TEMP 36.3; O2SAT 96
--- NOTE | 2022-03-04 13:26 | HO.POSTANES ---
Post Anesthesia Evaluation Post Anesthesia Evaluation Vital Signs: Vital Signs Temp Pulse Resp BP Pulse Ox O2 Del Method 03/04/22 13:07 97.3 F 66 16 122/72 96 Room Air 03/04/22 11:31 97.3 F 71 16 174/77 H 98 Room Air Anesthesia: Monitored Mental Status: Awake Pain Control: Satisfactory Nausea/Vomiting: None Hydration: Adequate Anesthesia-Related Issues: No Anes. Related Issues
[2022-03-04 13:30] VITALS: BP 154/80; PULSE 57; RESP 18; TEMP 36.3; O2SAT 98
--- NOTE | 2022-03-05 00:05 | OP_ITS ---
SURGEON: Too Casey MD INDICATIONS: Dysphagia. PREOPERATIVE DIAGNOSIS: POSTOPERATIVE DIAGNOSIS: PROCEDURE PERFORMED: Upper endoscopy with balloon dilation and biopsy. ESTIMATED BLOOD LOSS: COMPLICATIONS: ANESTHESIA: Monitored anesthesia care. ASSISTANTS: SPECIMENS: DESCRIPTION OF PROCEDURE: History and physical was performed. The risks and benefits of the procedure were explained to the patient. Informed consent was obtained. The patient was placed in the left lateral decubitus position. The Olympus video gastroscope was introduced into the esophagus, stomach, and duodenum. Examination was performed and the scope was removed. He tolerated the procedure well and was returned to recovery area in stable condition. The procedure was performed on 03/04/2022. FINDINGS: Esophagus: The esophagus showed some mild nodularity at the EG junction with a small hiatal hernia. No definite stricture was identified. Balloon dilation at the EG junction to 20 mm for 60 seconds was performed with no immediate complications. Biopsies were then obtained from the EG junction. Stomach: The stomach showed a 10 mm gastric polyp in the fundus. This was biopsied and seemed slightly inflamed. Duodenum: The bulb and second portion were normal. IMPRESSION: 1. Dysphagia. 2. Gastric polyp. RECOMMENDATION: Follow up the biopsy results. MD JAIRO Ferrara/TAMMIE / [id number]
== END 2022-03-04 14:11 | disposition home or self-care (01) ==
PROVIDERS: Nurse Practitioner; PCP Internal Medicine; Visit Provider Internal Medicine Gastroenterology
PROC: (CPT 43249; principal; 2022-03-04 11:50)
DX: R13.19 Other dysphagia (principal); K31.7 Polyp of stomach and duodenum; K44.9 Diaphragmatic hernia without obstruction or gangrene; R11.10 Vomiting, unspecified; E11.22 Type 2 diabetes mellitus with diabetic chronic kidney disease; I12.9 Hypertensive chronic kidney disease with stage 1 through stage 4 chronic kidney disease, or unspecified chronic kidney disease; N18.30 Chronic kidney disease, stage 3 unspecified; E11.40 Type 2 diabetes mellitus with diabetic neuropathy, unspecified; I35.0 Nonrheumatic aortic (valve) stenosis; G47.33 Obstructive sleep apnea (adult) (pediatric); Z79.899 Other long term (current) drug therapy; Z91.040 Latex allergy status
CPT/HCPCS: 43249; 43239; 36415; 80048; 82947; 88305; 88342; C1726

== ENCOUNTER 2022-04-08 07:39 | Outpatient (REF) | payer MEDICARE, SELFPAY ==
[2022-04-08 11:57] LABS: Estimated Average Glucose 146 mg/dL; Hemoglobin A1c % 6.7 %
[2022-04-08 12:08] LABS: Alanine Aminotransferase 20 U/L (0-40); Albumin Level 4.5 g/dL (3.5-5.0); Alkaline Phosphatase 89 U/L (39-117); Anion Gap 13 (12-20); Aspartate Amino Transferase 17 U/L (5-37); Bilirubin Total 0.2 mg/dL (0.0-1.0); Blood Urea Nitrogen 36 mg/dL (9-16); Calcium 9.2 mg/dL (8.4-10.2); Carbon Dioxide 22 mmol/L (22-29); Chloride 109 mmol/L (96-108); Cholesterol 206 mg/dL; Estimated Glomerular Filt Rate 31; Glucose Random 145 mg/dL (60-115); HDL Cholesterol 41 mg/dL; Iron 65 mcg/dL (45-160); LDL Cholesterol Calculated 133 mg/dl; Percent Iron Saturation 21 % (15-50); Potassium 4.4 mmol/L (3.3-5.1); Sodium 140 mmol/L (135-145); Total Iron Binding Capacity 316 mcg/dL (228-428); Total Protein 7.8 g/dL (6.5-8.0); Triglycerides 163 mg/dL; Unsaturated Iron Binding 251 ug/dL
[2022-04-08 12:34] LABS: Creatinine Urine 58.47 mg/dL
== END 2022-04-08 07:40 | disposition home or self-care (01) ==
LOC: HO.MANLDS 07:39
PROVIDERS: Visit Provider Internal Medicine
DX: Z00.00 Encounter for general adult medical examination without abnormal findings (principal); E11.9 Type 2 diabetes mellitus without complications
CPT/HCPCS: 36415; 80053; 80061; 82043; 83036; 83540

== ENCOUNTER 2022-04-22 07:49 | Outpatient (REF) | payer MEDICARE, OTHER, SELFPAY ==
[2022-04-22 08:17] LABS: MANUAL DIFF FLAG NO
[2022-04-22 09:21] LABS: Basophils Absolute Auto 0.1 X10*3/uL (0.0-0.2); Basophils Percent Auto 1.1 % (0-2); Eosinophils Absolute Auto 0.6 X10*3/uL (0.0-0.4); Eosinophils Percent Auto 5.9 % (0-4); Hematocrit 36.4 % (42.0-52.0); Imm Gran Pct Auto 1.1 % (0.0-0.4); Lymphocytes Absolute Auto 2.5 X10*3/uL (1.2-4.9); Lymphocytes Percent Auto 26.5 % (20-40); Mean Corpuscular Hemoglobin 28.4 pg (27.0-33.0); Mean Corpuscular Volume 86.3 fL (80.0-98.0); Mean Platelet Volume 10.5 fL (9.4-12.4); Monocytes Percent Auto 10.6 % (2-11); Neutrophils Absolute Auto 5.2 x10*3/uL (2.0-8.3); Neutrophils Percent Auto 54.8 % (45-73); Platelet Count 253 X10*3/uL (160-400); Red Blood Count 4.22 X10*6/uL (4.60-5.80); Red Cell Distribution Width 13.9 % (11.0-16.0); White Blood Count 9.5 X10*3/uL (4.8-10.8)
[2022-04-22 09:49] LABS: Albumin Level 4.1 g/dL (3.5-5.0); Anion Gap 16 (12-20); Blood Urea Nitrogen 41 mg/dL (9-16); Calcium 9.4 mg/dL (8.4-10.2); Carbon Dioxide 20 mmol/L (22-29); Chloride 106 mmol/L (96-108); Estimated Glomerular Filt Rate 28; Magnesium 1.9 mg/dL (1.6-2.6); Phosphorus 3.3 mg/dL (2.7-4.5); Potassium 4.8 mmol/L (3.3-5.1); Sodium 137 mmol/L (135-145)
[2022-04-22 10:08] LABS: Appearance Urine Clear; Color Urine Yellow; Glucose Urine UA Negative (Negative); Leukocyte Esterase Urine Negative (Negative); Nitrite Urine Negative (Negative); Specific Gravity - Urine 1.015 (1.005-1.025); UMIC TRIGGER UA YES; Urine Blood Negative (Negative); Urine Ketones Negative (Negative); Urine Protein 100 (2+) mg/dL (Neg-Trace)
[2022-04-22 10:12] LABS: Bacteria Urine None Seen (None Seen); Hyaline Casts Urine 0-2 /LPF (0-2); RBC Urine 0-2 /HPF (0-2); Squamous Epithelial Cell Urine 0-2 /HPF (0-2); WBC Urine 0-5 /HPF (0-5)
[2022-04-22 10:13] LABS: Vitamin D 25-OH Total 42.9 ng/mL (>30)
[2022-04-22 11:21] LABS: Creatinine Urine 80.68 mg/dL; Protein/Creatinine Ratio, Ur 1.07 (<0.2); Total Protein Urine Random 86 mg/dL (<12)
[2022-04-22 11:34] LABS: Microalbum/Creatinine Ratio Ur 664.3 ug/mg cr
[2022-04-23 12:22] LABS: PTHI 77 pg/mL (16-77)
== END 2022-04-22 07:50 | disposition home or self-care (01) ==
LOC: HO.LAB 07:49
PROVIDERS: PCP Internal Medicine; Visit Provider Internal Medicine Nephrology
DX: E11.21 Type 2 diabetes mellitus with diabetic nephropathy (principal); E11.22 Type 2 diabetes mellitus with diabetic chronic kidney disease; N18.4 Chronic kidney disease, stage 4 (severe); N25.0 Renal osteodystrophy
CPT/HCPCS: 36415; 80051; 81001; 82040; 82043; 82306; 82310; 82565; 83735; 83970; 84100; 84156; 84520; 85025; 87086

== ENCOUNTER 2022-04-29 06:53 | Day surgery (SDC) | payer MEDICARE, OTHER, SELFPAY ==
--- NOTE | 2022-04-28 11:10 | HO.ANESPROP2 ---
Documented by User: Livier Thorpe NP 04/28/22 11:11 HPI - Anesthesia Eval Consult details Narrative: 81yo M for Upper Endoscopy s/p EGD 02/2022 with TIVA stable at 12/2021 cardiology visit (mild ) PMF Active Problems Active Problems: All Active Problems (Updated 03/04/22 @ 11:24 by Dora Pearce RN) Aortic stenosis (Acute) Hypertension (Acute) Type 2 diabetes mellitus (Acute) CKD stage 3 due to type 2 diabetes mellitus (Acute) Essential hypertension (Acute) Diabetic foot infection (Acute) Septic arthritis of foot (Acute) SVT (supraventricular tachycardia) (Acute) Past Medical History Medical History Aortic stenosis Cellulitis of foot Diabetes Diabetic neuropathy Heart murmur History of osteomyelitis HTN (hypertension) Kidney disease Osteomyelitis Sepsis Family History Family History Father Heart attack CVD (cardiovascular disease) Mother Colon cancer Family history of problems with anesthesia: No Surgical History Surgical History History of hammer toe correction (~05/2021) Hx of colonoscopy Hx of esophagogastroduodenoscopy History of Problems with Anesthesia: No Social History Social History Household Members: Spouse Housing: House Do you presently have visiting nurse or other home services: Yes Alcohol intake: never Patient Tobacco Use Status: Never used Tobacco Use of substances other than those prescribed or required for medical reasons: No Are you DNR?: No Advance Directives: No Advance Directives Information Provided: Yes service: No Current occupational status: retired Meds Allergies Allergy/AdvReac Type Severity Reaction Status Date / Time latex AdvReac Unknown itchy Uncoded 04/29/22 07:22 since picc line has been put in Home Medications Medication Instructions Recorded Confirmed Last Taken Type ascorbic acid (vitamin C) 1,000 mg 500 mg PO DAILY 06/06/20 04/29/22 Unknown History tablet calcium carbonate 600 mg calcium 600 mg PO DAILY 06/06/20 04/29/22 Unknown History (1,500 mg) tablet (Calcium) cholecalciferol (vitamin D3) 25 25 mcg PO DAILY 06/06/20 04/29/22 Unknown History mcg (1,000 unit) capsule nifedipine 90 mg tablet,extended 90 mg PO BEDTIME 06/06/20 04/29/22 Unknown History release omega-3 fatty acids 1,000 mg 1,000 mg PO DAILY 06/06/20 04/29/22 04/22/22 History capsule (Fish Oil Concentrate) vitamin B complex (B 1 tab PO DAILY 06/06/20 04/29/22 Unknown History Complex-Vitamin B12 tablet) flaxseed 1 tab PO DAILY 04/29/22 04/29/22 04/22/22 History Exam Exam Date and Time: April 28, 2022 1110 Pertinent Lab Results Pertinent Lab Results: Laboratory Tests 04/22/22 04/22/22 08:15 08:15 WBC 9.5 Hgb 12.0 L Hct 36.4 L Plt Count 253 Sodium 137 Potassium 4.8 Chloride 106 Carbon Dioxide 20 L BUN 41 H Creatinine 2.29 H Narrative Narrative: EKG 12/2021 Sinus rhythm 68 beats per minute, normal EKG, QT interval 404 milliseconds. ECHO 2019 1. Nml LV systolic function with impaired relaxation filling pattern 2. Mild 3. Severe MAC 4. Nml RV systolic pressure 5. No pericardial effusion Assessment and Plan Assessment Anesthesia Assessment: Chart Reviewed Final Anesthetic Review Family History of Problems with Anesthesia: No History of Problems with Anesthesia: No Documented by User: Deandra Calvin MD 04/29/22 08:16 [facility] Past Medical History Medical History Aortic stenosis Cellulitis of foot Diabetes Diabetic neuropathy Heart murmur History of osteomyelitis HTN (hypertension) Kidney disease Osteomyelitis Sepsis Family History Family History Father Heart attack CVD (cardiovascular disease) Mother Colon cancer Surgical History Surgical History History of hammer toe correction (~05/2021) Hx of colonoscopy Hx of esophagogastroduodenoscopy Social History Social History Household Members: Spouse Housing: House Do you presently have visiting nurse or other home services: Yes Alcohol intake: never Patient Tobacco Use Status: Never used Tobacco Use of substances other than those prescribed or required for medical reasons: No Are you DNR?: No Advance Directives: No Advance Directives Information Provided: Yes service: No Current occupational status: retired Meds Allergies Allergy/AdvReac Type Severity Reaction Status Date / Time latex AdvReac Unknown itchy Uncoded 04/29/22 07:22 since picc line has been put in Home Medications Medication Instructions Recorded Confirmed Last Taken Type ascorbic acid (vitamin C) 1,000 mg 500 mg PO DAILY 06/06/20 04/29/22 Unknown History tablet calcium carbonate 600 mg calcium 600 mg PO DAILY 06/06/20 04/29/22 Unknown History (1,500 mg) tablet (Calcium) cholecalciferol (vitamin D3) 25 25 mcg PO DAILY 06/06/20 04/29/22 Unknown History mcg (1,000 unit) capsule nifedipine 90 mg tablet,extended 90 mg PO BEDTIME 06/06/20 04/29/22 Unknown History release omega-3 fatty acids 1,000 mg 1,000 mg PO DAILY 06/06/20 04/29/22 04/22/22 History capsule (Fish Oil Concentrate) vitamin B complex (B 1 tab PO DAILY 06/06/20 04/29/22 Unknown History Complex-Vitamin B12 tablet) flaxseed 1 tab PO DAILY 04/29/22 04/29/22 04/22/22 History Exam Airway Mallampati Class: II TM Dist: >3cm Neck ROM: Full Loose/Missing/Broken Teeth: No Heart: rr Lungs: cta Assessment and Plan Assessment Anesthesia Assessment: Anesthesia Plan Discussed Final Anesthetic Review NPO: Yes ASA Class: II and III Final Preanesthetic Review: No Changes in Pt Med Stat Patient Risk: Low Anesthetic Plan Anesthetic Plan: MAC:
[2022-04-29 07:24] VITALS: BMI 28.8
[2022-04-29 07:36] VITALS: BP 185/67; PULSE 64; RESP 16; TEMP 36.7; O2SAT 97
[2022-04-29 07:46] LABS: Glucose, Whole Blood 129 mg/dL (60-115)
[2022-04-29] MEDS: Lactated Ringers 1,000 ML 100 ML IVCONT (08:04)
--- NOTE | 2022-04-29 08:15 | MHC.SHP ---
Pre-Procedural Eval Section A Date of Service: 04/29/22 Section B Chief Complaint: Polyp of stomach and duodenum Details of Present Illness: see H&P no changes Relevant Family History (Specify if Yes): No Relevant Social History: None Present Medications: see Short Stay Collaborative assessment Medical History: No relevant PMH History of Previous Operations: No relevant previous surgery Allergies: Allergies Allergy/AdvReac Type Severity Reaction Status Date / Time latex AdvReac Unknown itchy Uncoded 04/29/22 07:22 since picc line has been put in Review of Systems Sugical H&P ROS: Negative: Constitution, Cardiovascular, Respiratory, Neurological, Psychiatric, Hem-Onc, Allergic/Immunologic, Gastrointestinal, Genitourinary, Musculoskeletal, Integumentary, Endocrine and Eyes/Ears/Nose/Throat Exam Surgical H&P Exam: Normal: HEENT, Normal: Heart, Normal: Lungs, Normal: Extremities, Normal: Abdomen, Normal: Skin and Normal: Neurological Plan Diagnosis/Plan: Unchanged I have reviewed the history and physical and performed a pertinent physical examination on my patient. No changes have occurred unless specified.
--- NOTE | 2022-04-29 08:38 | P.BOP_ITS ---
Brief Operative Note Date of Service: 04/29/22 Pre-op diagnosis: gastric polyp with low grade dysplasia Post-op diagnosis: same Procedure: EGD Surgeon: Too Casey Anesthesia: MAC Was an Cosmetology Instructor used for this Procedure?: No Estimated blood loss (mL): 1 Pathology: other Condition: stable Disposition: PACU
[2022-04-29 08:43] VITALS: BP 139/67; PULSE 61; RESP 18; TEMP 36.2; O2SAT 94
[2022-04-29 08:58] VITALS: BP 158/71; PULSE 61; RESP 16; TEMP 36.2; O2SAT 96
--- NOTE | 2022-04-29 19:02 | OP_ITS ---
SURGEON: Too Casey MD INDICATIONS: Gastric polyp with low-grade dysplasia. PREOPERATIVE DIAGNOSIS: POSTOPERATIVE DIAGNOSIS: PROCEDURE PERFORMED: Upper endoscopy with snare polypectomy. ESTIMATED BLOOD LOSS: COMPLICATIONS: ANESTHESIA: Monitored anesthesia care. ASSISTANTS: SPECIMENS: DESCRIPTION OF PROCEDURE: The history and physical performed. The risks and benefits of the procedure were explained to the patient. The procedure was performed on April 29, 2022. The patient was placed in the left lateral decubitus position. The Olympus video gastroscope was introduced into the esophagus, stomach, and duodenum. Examination was performed. The scope was removed. He tolerated the procedure well and was taken to recovery in stable condition. FINDINGS: Esophagus. The esophagus showed a lot of retained mucus and saliva. There was a pill present in the esophagus that was pushed gently through into the stomach. Stomach. The stomach showed no evidence of masses or ulcers. The previous identified gastric polyp in the fundus was again seen. This appeared less inflamed than previously. This measured approximately 10 mm. This was removed with a snare and recovered by [employer]. The base of the polyp was cauterized. Duodenum. The bulb and second portion were normal. IMPRESSION: Gastric polyp. RECOMMENDATIONS: Follow up the biopsy results. MD JAIRO Ferrara/TAMMIE / [id number]
== END 2022-04-29 09:49 | disposition home or self-care (01) ==
PROVIDERS: PCP Internal Medicine; Visit Provider Internal Medicine Gastroenterology
PROC: 0DJ08ZZ Inspection of Upper Intestinal Tract, Via Natural or Artificial Opening Endoscopic (ICD-10-PCS; CPT 43235; principal; 2022-04-29 08:10)
DX: K31.7 Polyp of stomach and duodenum (principal); K31.A21 Gastric intestinal metaplasia with low grade dysplasia; I12.9 Hypertensive chronic kidney disease with stage 1 through stage 4 chronic kidney disease, or unspecified chronic kidney disease; E11.22 Type 2 diabetes mellitus with diabetic chronic kidney disease; N18.30 Chronic kidney disease, stage 3 unspecified; Z79.899 Other long term (current) drug therapy; Z91.040 Latex allergy status
CPT/HCPCS: 43239; 82947; 88305; 88342

== ENCOUNTER 2022-05-02 09:09 | Outpatient (REF) | payer MEDICARE, OTHER, SELFPAY ==
[2022-05-02 10:48] LABS: B Type Natriuretic Peptide 66 pg/mL (<100)
[2022-05-02 11:16] LABS: Anion Gap 14 (12-20); Blood Urea Nitrogen 36 mg/dL (9-16); Calcium 9.1 mg/dL (8.4-10.2); Carbon Dioxide 24 mmol/L (22-29); Chloride 104 mmol/L (96-108); Estimated Glomerular Filt Rate 29; Glucose Random 220 mg/dL (60-115); Potassium 4.8 mmol/L (3.3-5.1); Sodium 137 mmol/L (135-145)
== END 2022-05-02 09:10 | disposition home or self-care (01) ==
LOC: HO.LAB 09:09
PROVIDERS: PCP Internal Medicine; Visit Provider Nurse Practitioner Family
DX: R60.9 Edema, unspecified (principal)
CPT/HCPCS: 36415; 80048; 83880

== ENCOUNTER 2022-07-18 07:33 | Outpatient (REF) | payer MEDICARE, OTHER, SELFPAY ==
[2022-07-18 11:42] LABS: Estimated Average Glucose 169 mg/dL; Hemoglobin A1c % 7.5 %
[2022-07-18 12:31] LABS: Alanine Aminotransferase 16 U/L (0-40); Albumin Level 3.8 g/dL (3.5-5.0); Alkaline Phosphatase 102 U/L (39-117); Anion Gap 13 (12-20); Aspartate Amino Transferase 19 U/L (5-37); Bilirubin Total 0.4 mg/dL (0.0-1.0); Blood Urea Nitrogen 27 mg/dL (9-16); Calcium 9.1 mg/dL (8.4-10.2); Carbon Dioxide 24 mmol/L (22-29); Chloride 106 mmol/L (96-108); Cholesterol 223 mg/dL; Estimated Glomerular Filt Rate 31; Glucose Random 140 mg/dL (60-115); HDL Cholesterol 42 mg/dL; Iron 49 mcg/dL (45-160); LDL Cholesterol Calculated 138 mg/dl; Percent Iron Saturation 20 % (15-50); Potassium 4.7 mmol/L (3.3-5.1); Sodium 138 mmol/L (135-145); Total Iron Binding Capacity 250 mcg/dL (228-428); Total Protein 7.4 g/dL (6.5-8.0); Triglycerides 217 mg/dL; Unsaturated Iron Binding 201 ug/dL
[2022-07-18 12:53] LABS: Creatinine Urine 55.95 mg/dL; Microalbum/Creatinine Ratio Ur 650.5 ug/mg cr
== END 2022-07-18 07:34 | disposition home or self-care (01) ==
LOC: HO.MANLDS 07:33
PROVIDERS: Visit Provider Internal Medicine
DX: Z00.00 Encounter for general adult medical examination without abnormal findings (principal); E11.9 Type 2 diabetes mellitus without complications
CPT/HCPCS: 36415; 80053; 80061; 82043; 83036; 83540

== ENCOUNTER → 2022-11-12 14:00 | Outpatient (BNVA) | payer MEDICARE, OTHER, SELFPAY | PROVIDERS: PCP Internal Medicine; Referring Provider Internal Medicine; Visit Provider Internal Medicine Cardiovascular Disease | DX: I35.0 Nonrheumatic aortic (valve) stenosis (principal); I10 Essential (primary) hypertension; E11.9 Type 2 diabetes mellitus without complications | CPT/HCPCS: 93005; 99212 ==

== ENCOUNTER 2022-11-26 07:30 | Outpatient (REF) | payer MEDICARE, SELFPAY | END 2022-11-26 07:31 | disposition home or self-care (01) | LOC: HO.MANLDS 07:30 | PROVIDERS: Visit Provider Internal Medicine | DX: Z00.00 Encounter for general adult medical examination without abnormal findings (principal); E11.9 Type 2 diabetes mellitus without complications | CPT/HCPCS: 36415; 80053; 80061; 82043; 83036; 83540 ==

== ENCOUNTER → 2022-12-10 10:49 | Outpatient (REF) | payer MEDICARE, OTHER, SELFPAY ==
--- NOTE | 2022-12-10 10:53 | CA_ITS ---
Transthoracic Echocardiogram Patient (Last, First, Middle): Karthikeyan Lazo A Gender: Male Date of : 1940 Age: 82 Procedure Date: 12/10/2022 Procedure Type: Transthoracic Echocardiogram Location: OP Height: 190.5 cm Weight: 99.79 kg BSA: 2.29 m2 Heart Rate: 66 bpm BP: 182 / 82 mmHg Planer Mill Grader: SB Referring MD: Issa Degroot MD Powertrain Engineer: Issa Degroot MD Symptoms: I35.0 - Nonrheumatic aortic (valve) stenosis Study Quality: Fair but adequate ECG Rhythm: Sinus Conclusions: - Normal left ventricular size, thickness, systolic function, and wall motion. The visually estimated ejection fraction is between 60-65%. - Normal right ventricular cavity size and systolic function. - There is moderate aortic valve stenosis. Findings Left Ventricle Normal left ventricular size, thickness, systolic function, and wall motion. The visually estimated ejection fraction is between 60-65%. Abnormal diastolic function is noted. Spectral Doppler is indicative of an impaired relaxation filling pattern. Elevated filling pressures. Right Ventricle Normal right ventricular cavity size and systolic function. Atria The left atrium is mildly dilated. The right atrium is normal in size. Aortic Valve There is moderate calcification of the aortic valve. There is moderate aortic valve stenosis. The peak aortic velocity is 3.48 m/s with a calculated peak gradient of 48 mmHg. The mean gradient is 23 mmHg. The aortic valve area is 1.21 cm2. There is no aortic valve regurgitation. Mitral Valve There is moderate mitral annular calcification. There is trace mitral valve regurgitation. There is no mitral valve stenosis. Pulmonic Valve The pulmonic valve is likely normal. Tricuspid Valve Normal tricuspid valve structure. There is trace tricuspid valve regurgitation. Normal right atrial pressure. There is no evidence of pulmonary hypertension. Great Vessels All visible segments of the aorta are normal in size. Venous The inferior vena cava is normal in size and collapses greater than 50% with inspiration. Pericardium/Pleural There is no evidence of pericardial effusion. Prior Study Comparison Changes noted compared to prior study dated: 11/24/2019. Moderate present. Measurements 2D Linear Measurements IVSd: 1.01 0.6-0.9/0.6-1.0 cm LVIDd: 5.05 3.9-5.3/4.2-5.9 cm LVIDd Index: 2.21 2.4-3.2/2.2-3.1 cm/m2 LVIDs: 3.43 2.0-3.6 cm LVPWd: 0.78 0.7-1.1 cm LA Diam: 4.70 2.7-3.8/3.0-4.0 cm LAIDs Index: 2.05 1.5-2.3 cm/m2 LV Mass: 199.02 67-162/88-224 g LV Mass Index: 86.91 43-95/49-115 g/m2 LVOT Diam: 2.10 3.0+(-)1.3 cm 2D Systolic Function EF 2C: 64.20 >55% Mitral Valve MV VTI: 0.47 MV Pk Kareem: 1.34 MV Mn Kareem: 0.91 MV Pk Grad: 7.00 MV Mn Grad: 4.00 MV Pk E: 1.30 MV PK A: 1.19 MV Decel Time: 210.00 E/A: 1.10 E'Lateral: 7.29 E'Medial: 5.33 E/E' Med: 24.40 E/E' Lat: 17.80 PHT: 61.00 MVA PHT: 3.61 MVA Continuity: 2.06 Decel Long: 6.22 Aortic Valve AoV Pk Kareem: 3.48 AoV Mn Kareem: 2.22 AoV VTI: 0.79 AoV Pk Grad: 48.00 Aov Mn Grad: 23.00 MANI Cont.VTI: 1.21 LVOT LVOT Pk Kareem: 1.14 LVOT Mn Kareem: 0.83 LVOT VTI: 0.28 LVOT Pk Grad: 5.00 LVOT Mn Grad: 3.00 LVOT Diam: 2.10 LVOT Area: 3.46 Diastolic Function MV Pk E: 1.30 MV Pk A: 1.19 E/A: 1.10 E'Medial: 5.33 E/E' Med: 24.40 E' Laterial: 7.29 E/E' Lat: 17.80 Right Ventricle TAPSE (mm): 19.80 TVS' Kareem: 12.50 Tricuspid Valve TR Pk Kareem: 2.82 TR Pk Grad: 32.00 RA Press: 3.00 RVSP: 35.00 Great Vessels Aorta Sinus of Valsalva: 3.50 2.0-3.5 cm Ao Asc: 3.20 2.1-3.4 cm Pulmonary Veins Pulm Vein S/D 1.00 Updated in Other Vendor System with Status of Final Issa Degroot MD electronically signed on 12/11/2022 5:03:40 PM with status of Final
== END ==
LOC: HO.CARD 10:49
PROVIDERS: PCP Internal Medicine; Visit Provider Internal Medicine Cardiovascular Disease
DX: I35.0 Nonrheumatic aortic (valve) stenosis (principal)
CPT/HCPCS: 93306

== ENCOUNTER → 2022-12-10 10:53 | Outpatient (BNV) | payer MEDICARE, SELFPAY | PROVIDERS: PCP Internal Medicine; Visit Provider Internal Medicine Cardiovascular Disease | DX: I35.0 Nonrheumatic aortic (valve) stenosis (principal) | CPT/HCPCS: 93306 ==

== ENCOUNTER 2023-01-20 15:29 | Outpatient (REF) | payer MEDICARE, SELFPAY ==
[2023-01-20 15:51] LABS: MANUAL DIFF FLAG NO
[2023-01-20 16:58] LABS: Appearance Urine Clear; Color Urine Yellow; Glucose Urine UA Negative (Negative); Leukocyte Esterase Urine Negative (Negative); Nitrite Urine Negative (Negative); PH 5.5 (5.0-9.0); UMIC TRIGGER UA YES; Urine Blood Negative (Negative); Urine Ketones Negative (Negative); Urine Protein 100 (2+) mg/dL (Neg-Trace)
[2023-01-20 17:01] LABS: Basophils Absolute Auto 0.1 X10*3/uL (0.0-0.2); Basophils Percent Auto 1.1 % (0-2); Eosinophils Absolute Auto 0.2 X10*3/uL (0.0-0.4); Eosinophils Percent Auto 2.5 % (0-4); Hematocrit 36.9 % (42.0-52.0); Hemoglobin 12.2 g/dl (14.0-18.0); Imm Gran Abs Auto 0.07 X10*3/uL (0.00-0.03); Imm Gran Pct Auto 0.7 % (0.0-0.4); Lymphocytes Absolute Auto 2.7 X10*3/uL (1.2-4.9); Lymphocytes Percent Auto 27.9 % (20-40); Mean Corpuscular HGB Conc 33.1 g/dl (31.0-36.0); Mean Corpuscular Hemoglobin 27.5 pg (27.0-33.0); Mean Corpuscular Volume 83.1 fL (80.0-98.0); Monocytes Percent Auto 10.1 % (2-11); Neutrophils Absolute Auto 5.6 x10*3/uL (2.0-8.3); Neutrophils Percent Auto 57.7 % (45-73); Platelet Count 292 X10*3/uL (160-400); Red Blood Count 4.44 X10*6/uL (4.60-5.80); Red Cell Distribution Width 14.1 % (11.0-16.0); White Blood Count 9.6 X10*3/uL (4.8-10.8)
[2023-01-20 17:03] LABS: Bacteria Urine None Seen (None Seen); Hyaline Casts Urine 0-2 /LPF (0-2); RBC Urine 0-2 /HPF (0-2); Squamous Epithelial Cell Urine 0-2 /HPF (0-2); WBC Urine 0-5 /HPF (0-5)
[2023-01-20 17:29] LABS: Creatinine Urine 59.49 mg/dL; Microalbum/Creatinine Ratio Ur 684.1 ug/mg cr (<30); Protein/Creatinine Ratio, Ur 0.97 (<0.2); Total Protein Urine Random 58 mg/dL (<12)
[2023-01-20 17:29] LABS: Albumin Level 4.2 g/dL (3.5-5.0); Anion Gap 13 (12-20); Blood Urea Nitrogen 41 mg/dL (9-16); Calcium 9.8 mg/dL (8.4-10.2); Carbon Dioxide 20 mmol/L (22-29); Chloride 110 mmol/L (96-108); Estimated Glomerular Filt Rate 29; Magnesium 2.1 mg/dL (1.6-2.6); Phosphorus 3.1 mg/dL (2.7-4.5); Potassium 4.3 mmol/L (3.3-5.1); Sodium 139 mmol/L (135-145)
[2023-01-20 17:44] LABS: Vitamin D 25-OH Total 65.4 ng/mL (>30)
[2023-01-21 16:29] LABS: Calcium (PTHI) 9.2 mg/dL (8.6-10.3); PTHI 59 pg/mL (16-77)
== END 2023-01-20 15:30 | disposition home or self-care (01) ==
LOC: HO.LAB 15:29
PROVIDERS: PCP Internal Medicine; Visit Provider Internal Medicine Nephrology
DX: E11.22 Type 2 diabetes mellitus with diabetic chronic kidney disease (principal); E11.21 Type 2 diabetes mellitus with diabetic nephropathy; N18.4 Chronic kidney disease, stage 4 (severe); N25.0 Renal osteodystrophy; R82.90 Unspecified abnormal findings in urine
CPT/HCPCS: 36415; 80051; 81001; 82040; 82043; 82306; 82310; 82565; 83735; 83970; 84100; 84156; 84520; 85025; 87086

== ENCOUNTER 2023-02-28 21:48 | Emergency (ER) | payer MEDICARE, OTHER, SELFPAY ==
[2023-02-28 21:55] VITALS: BP 173/74; PULSE 102; RESP 18; TEMP 37.4; O2SAT 96; BMI 27.2
[2023-02-28 23:25] LABS: Alanine Aminotransferase 18 U/L (0-40); Albumin Level 4.2 g/dL (3.5-5.0); Alkaline Phosphatase 88 U/L (39-117); Anion Gap 17 (12-20); Aspartate Amino Transferase 20 U/L (5-37); Bilirubin Total 0.9 mg/dL (0.0-1.0); Blood Urea Nitrogen 37 mg/dL (9-16); Calcium 9.7 mg/dL (8.4-10.2); Carbon Dioxide 19 mmol/L (22-29); Chloride 104 mmol/L (96-108); Creatinine Clr Calc Pharmacy 25.9; Estimated Glomerular Filt Rate 24; Glucose Random 172 mg/dL (60-115); Potassium 4.4 mmol/L (3.3-5.1); Sodium 136 mmol/L (135-145)
--- NOTE | 2023-02-28 23:44 | ED.GENADULT ---
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 Patient also noticed white discharge from the wound. No fever, no chills. Related Data Home Medications Medication Instructions Recorded Confirmed ascorbic acid (vitamin C) 1,000 mg 500 mg PO DAILY 06/06/20 11/12/22 tablet calcium carbonate 600 mg calcium 600 mg PO DAILY 06/06/20 11/12/22 (1,500 mg) tablet (Calcium) cholecalciferol (vitamin D3) 25 25 mcg PO DAILY 06/06/20 11/12/22 mcg (1,000 unit) capsule nifedipine 90 mg tablet,extended 90 mg PO BEDTIME 06/06/20 11/12/22 release omega-3 fatty acids 1,000 mg 1,000 mg PO DAILY 06/06/20 11/12/22 capsule (Fish Oil Concentrate) vitamin B complex (B 1 tab PO DAILY 06/06/20 11/12/22 Complex-Vitamin B12 tablet) flaxseed 1 tab PO DAILY 04/29/22 11/12/22 Previous Rx's Medication Instructions Recorded metoprolol succinate 25 mg 25 mg PO DAILY #90 tabs 01/14/23 tablet,extended release 24 hr doxycycline hyclate 100 mg tablet 100 mg PO BID #20 tabs 03/01/23 Allergies Allergy/AdvReac Type Severity Reaction Status Date / Time latex AdvReac Unknown itchy Uncoded 02/28/23 21:55 since picc line has been put in Review of Systems Review of Systems: All other systems are reviewed and are negative Constitutional: Reports as per HPI and Reports no additional constitutional complaints Eyes: Reports as per HPI and Reports no additional eye complaints Reports system reviewed and no additional complaints, except as documented Cardiovascular: Reports as per HPI and Reports no additional cardiovascular complaints Respiratory: Reports as per HPI and Reports no additional respiratory complaints Gastrointestinal: Reports as per HPI and Reports no additional gastrointestinal complaints Genitourinary: Reports no additional female genitourinary complaints Musculoskeletal: Reports no additional musculoskeletal complaints Skin/Breast: Reports system reviewed and no additional complaints, except as docu Psychiatric: Reports no additional psychiatric complaints Endocrine: Reports no additional endocrine complaints Hematologic/Lymphatic: Reports no additional hematologic/lymphatic complaints Allergic/Immunologic: Reports no additional allergic/immunologic complaints Reports system reviewed and no additional complaints, except as documented and Reports Abnormal speech present [facility] Past Medical History Medical History HTN (hypertension) Osteomyelitis Sepsis Diabetic neuropathy History of osteomyelitis Aortic stenosis Cellulitis of foot Heart murmur Kidney disease Diabetes Surgical History Hx of colonoscopy Hx of esophagogastroduodenoscopy History of hammer toe correction (~05/2021) Family History Family History Father Heart attack CVD (cardiovascular disease) Mother Colon cancer Social History Social History Household Members: Spouse Housing: House Do you presently have visiting nurse or other home services: Yes Alcohol intake: never Patient Tobacco Use Status: Never used Tobacco Smoked in Last 30 Days: No Use of substances other than those prescribed or required for medical reasons: No Advance Directives: No Advance Directives Information Provided: No service: No Current occupational status: retired Physical Exam ED Vital Signs: Vital Signs - 24 hr 02/28/23 21:55 Temperature 99.4 F Pulse Rate 102 H Respiratory Rate 18 Blood Pressure 173/74 H Pulse Oximetry 96 Oxygen Delivery Method Room Air BMI result Body Mass Index 27.2 Vital signs have been reviewed and appear to be correct. Blood pressure elevated. Heart rate elevated. Respiratory rate normal. Temperature normal. Oxygen saturation normal. Appearance: Alert. Oriented X3. No acute distress. Head: Normal external exam. Normocephalic. Atraumatic. No Falcon signs noted. No raccoon eyes noted Eyes: PERRLA. EOMI. Conjunctiva and sclera normal. Eyelids normal. ENT: TM's Normal. Pharynx normal. Uvula midline. Moist mucous membranes. No trismus noted. No drooling noted. No muffled voice noted. Neck: Normal inspection. Neck supple. FROM. No adenopathy. Thyroid Normal. No meningeal signs. No neck mass noted. CVS: Normal heart rate and rhythm. Heart sound normal. No murmurs noted. Pulses normal throughout. Respiratory: No respiratory distress. Painless inspiration. Breath sounds normal. No wheezes/rales/rhonchi noted. Chest nontender. No accessory muscle usage noted or decreased air movement noted. Abdomen: Soft and nontender. Bowel sounds normal in all 4 quadrants. No distention noted. No organomegaly noted. No visible injury noted. Back: No CVA tenderness. Full range of motion noted. Skin: Skin warm and dry. Normal skin color. Normal skin turgor. No rashes/lesions/lacerations noted. Extremities: left foot: 2 x 2 cm area of ulcerative lesion at the bottom of left foot, no fluctuation, no drainage, surrounded by area of redness, hotness, slight tenderness. Neuro: Oriented X 3. Cranial nerve exam: II-XII are grossly intact No motor deficit. No sensory deficit. Reflexes normal. Course Reevaluation(s) Reevaluation #1: Left foot infected diabetic ulcer, patient meet criteria for SARs with leukocytosis and tachycardia patient has no fever or chills. Patient's spouse having surgery on Thursday at [facility] and patient is declining hospitalization to be with his patient is demanding oral antibiotic and he will follow-up with his pinion and wheel truer . patient understand if the infection gets worse to return to the hospital. Patient fully understand the risk of going home with the infection and criteria of SIRS. Time: 00:15 Medical Decision Making Differential Diagnosis Differential Diagnoses: The differential diagnosis associated with the presentation includes ( cellulitis, osteomyelitis, electrolyte abnormality, sepsis.) Admission/Observation Consideration of admission/observation: Escalation of care including admission/observation considered Lab Data [facility] Lab Attestation statement: I reviewed the patient's lab results. 02/28/23 22:54 02/28/23 22:54 Labs: Lab Results 02/28/23 Range/Units 22:54 WBC 20.5 H (4.8-10.8) X10*3/uL RBC 4.00 L (4.60-5.80) X10*6/uL Hgb 11.2 L (14.0-18.0) g/dl Hct 33.7 L (42.0-52.0) % MCV 84.3 (80.0-98.0) fL MCH 28.0 (27.0-33.0) pg MCHC 33.2 (31.0-36.0) g/dl RDW 13.9 (11.0-16.0) % Plt Count 210 D (160-400) X10*3/uL MPV 10.0 (9.4-12.4) fL Immature Gran % (Auto) 0.6 H (0.0-0.4) % Neut % (Auto) 80.8 H (45-73) % Lymph % (Auto) 6.7 L (20-40) % [place] % (Auto) 11.6 H (2-11) % Eos % (Auto) 0.0 (0-4) % Baso % (Auto) 0.3 (0-2) % Lymph # (Auto) 1.4 (1.2-4.9) X10*3/uL [place]ord # (Auto) 2.4 H (0.1-1.2) X10*3/uL Eos # (Auto) 0.0 (0.0-0.4) X10*3/uL Baso # (Auto) 0.1 (0.0-0.2) X10*3/uL Abs Immat Gran (auto) 0.13 H (0.00-0.03) X10*3/uL Absolute Neuts (auto) 16.5 H (2.0-8.3) x10*3/uL Absolute Nucleated RBC 0.000 (0.0-0.012) X10*3/uL Nucleated RBC % (auto) 0.0 (0.0-0.2) /100WBC Smear Tech's Comments VERIFIED Sodium 136 (135-145) mmol/L Potassium 4.4 (3.3-5.1) mmol/L Chloride 104 (96-108) mmol/L Carbon Dioxide 19 L (22-29) mmol/L Anion Gap 17 (12-20) BUN 37 H (9-16) mg/dL Creatinine 2.62 H (0.5-1.4) mg/dL Estim Creat Clear Calc 25.9 Estimated GFR 24 Random Glucose 172 H (60-115) mg/dL Lactic Acid 0.9 (0.5-2.0) mmol/L Calcium 9.7 (8.4-10.2) mg/dL Total Bilirubin 0.9 (0.0-1.0) mg/dL AST 20 (5-37) U/L ALT 18 (0-40) U/L Alkaline Phosphatase 88 (39-117) U/L Total Protein 8.0 (6.5-8.0) g/dL Albumin 4.2 (3.5-5.0) g/dL Independent Interpretation I performed an independent interpretation of an: Plain X-Ray ( Left foot: No acute osteomyelitis.) Radiology Impression Discussion of test interpretation with radiology: I have reviewed the radiologist's reading. Discharge Plan Discharge Clinical Impression: Diabetic foot infection, SIRS (systemic inflammatory response syndrome) Cellulitis Qualifiers: Site of cellulitis of extremity: lower extremity Laterality: left Patient Disposition: Home, Self-Care Instructions: Cellulitis (ED) Additional Instructions: seek immediate medical attention if worsening of the pain, or the redness, or start to notice drainage from the wound. Prescriptions: New doxycycline hyclate 100 mg tablet 100 mg PO BID Qty: 20 0RF No Action metoprolol succinate 25 mg tablet extended release 24 hr 25 mg PO DAILY Qty: 90 3RF flaxseed 1 tab PO DAILY nifedipine 90 mg tablet extended release 90 mg PO BEDTIME vitamin B complex [B Complex-Vitamin B12] Tablet 1 tab PO DAILY calcium carbonate [Calcium 600] 600 mg calcium (1,500 mg) tablet 600 mg PO DAILY cholecalciferol (vitamin D3) 25 mcg (1,000 unit) capsule 25 mcg PO DAILY ascorbic acid (vitamin C) 1,000 mg tablet 500 mg PO DAILY omega-3 fatty acids [Fish Oil Concentrate] 1,000 mg capsule 1,000 mg PO DAILY
== END 2023-03-01 00:33 | disposition home or self-care (01) ==
PROVIDERS: Emergency Provider Emergency Medicine
DX: L03.116 Cellulitis of left lower limb (principal); E11.621 Type 2 diabetes mellitus with foot ulcer; R65.10 Systemic inflammatory response syndrome (SIRS) of non-infectious origin without acute organ dysfunction; R00.0 Tachycardia, unspecified; I10 Essential (primary) hypertension; Z79.899 Other long term (current) drug therapy
CPT/HCPCS: 36415; 73620; 80053; 83605; 85025; 87040; 99283; 99284

== ENCOUNTER 2023-03-04 09:59 | Inpatient (IN) | payer MEDICARE, OTHER, SELFPAY ==
--- NOTE | ~2023-03-04 | XR_ITS ---
EXAMINATION: XR CHEST CLINICAL INFORMATION: Cough. COMPARISON: 05/24/2018. TECHNIQUE: Frontal view of the chest was obtained. FINDINGS: The cardiomediastinal silhouette is stable. There is patchy left mid to lower lung field infiltrative change with similar patchy infiltrative change at the right lung base. There are no significant pleural effusions. The bony structures and soft tissues are unremarkable. XR/XR chest 1V IMPRESSION: Patchy left mid to lower lung field and right lung base infiltrative change. Consider early infectious process/pneumonia.
--- NOTE | ~2023-03-04 | IR_ITS ---
CLINICAL HISTORY: IV antibiotics. PROCEDURES: 1. Real-time ultrasound guided access into the right internal jugular vein after documentation of selective vessel patency, and permanent imaging storing in the patient records. 2. Placement of a 5 Fr, 27 cm tunneled, dual-lumen power injectable Eagle CLINICIAN: Jelani Payne PA-C MEDICATIONS: -Lidocaine 1% 10 ml, SQ. -Additional details, please see nursing flowsheet. Complications: None. Estimated blood loss: <5 ml Specimens: None. Contrast: None. Fluoroscopy time: 2.5 min PROCEDURE NOTE: The procedure, risks, benefits, and alternatives were carefully explained to the patient and written informed consent was obtained. The patient was placed supine on the fluoroscopy table. A timeout was performed. The right neck and chest was prepped and draped in usual sterile fashion. Local anesthesia was administered to the right neck access site with lidocaine. Under ultrasound guidance, the right internal jugular vein was accessed with a 5 fr micropuncture set. A permanent ultrasound picture was saved. A peel-away sheath was advanced over the wire. The catheter was measured and cut to length. Next, subcutaneous lidocaine was administered to the chest. Using blunt dissection, a subcutaneous tunnel was created that connects from the upper chest to the venotomy site. The catheter was pulled through the tunnel. The catheter was advanced through the sheath, which was subsequent peeled away. The catheter was tested, flushed, and sutured to the skin with its tip in the cavoatrial junction. The venotomy site was closed with surgical glue. A dry sterile dressing was applied to the chest and the venotomy site. A permanent chest fluoroscopic image was saved demonstrating the catheter tip in the cavoatrial junction. The patient was stable after the procedure was transferred back to the floor. IR/IR cvc insert central tunnel IMPRESSION: Placement of a tunneled dual-lumen Eagle catheter PLAN: -The catheter may be used immediately. This procedure was performed by Jelani Payne PA-C, and supervised by Dr. Xavier
--- NOTE | ~2023-03-04 | MR_ITS ---
EXAMINATION: MR FOOT WITHOUT AND WITH CONTRAST, LEFT CLINICAL INFORMATION: Diabetic foot infection. Evaluate for osteomyelitis. COMPARISON: Multiple priors, most recent left foot radiographs dated 03/04/2023, CT dated 11/08/2019, and MRI dated 07/19/2018. TECHNIQUE: Multisequence MR imaging of the left foot was obtained before and after the IV administration of 10 mL Gadavist contrast on a high-field strength scanner. FINDINGS: Soft tissue ulceration focally along the plantar aspect of the 2nd metatarsal head measuring up to 1.0 cm in ML dimension. Adjacent skin thickening and subcutaneous edema with postcontrast enhancement, consistent with cellulitis. There is peripherally enhancing heterogeneity extending deep into the soft tissues with a complex fluid collection containing air along the lateral aspect of the 1st proximal phalanx. Overall this area measures up to 4.3 x 2.0 x 3.7 cm (AP x ML x CC), consistent with abscess formation. Edema extends into the adjacent soft tissues. No adjacent marrow edema, enhancement, periosteal reaction, or cortical erosion to suggest acute osteomyelitis. No metatarsal stress reaction or fracture. Articular cartilage thinning with tiny marginal osteophytes at the 1st metatarsophalangeal joint and hallux sesamoids. Chronic resection of the 2nd proximal phalangeal head without acute abnormality. Circumferential subcutaneous edema. Small 2nd metatarsophalangeal joint effusion. No forefoot neuroma. Diffuse edema and atrophy throughout the intrinsic musculature of the foot which can be seen in diabetic patients. The flexor and extensor tendons are intact. MR/MR foot LT wo/w con IMPRESSION: 1. Focal soft tissue ulceration along the plantar aspect of the 2nd metatarsal head with adjacent cellulitis. Complex fluid collection containing air along the lateral aspect of the 1st proximal phalanx measuring up to 4.3 cm, consistent with abscess formation. No adjacent marrow edema or enhancement to suggest acute osteomyelitis. 2. Chronic resection of the 2nd proximal phalangeal head without acute osseous abnormality. Circumferential subcutaneous edema. 3. 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 Small 2nd metatarsophalangeal joint effusion. 4. Diffuse edema and atrophy throughout the intrinsic foot musculature which can be seen in diabetic patients.
[2023-03-04 10:07] VITALS: BP 149/66; PULSE 90; O2SAT 97
--- NOTE | 2023-03-04 10:09 | ED_ITS ---
HPI - General Adult General Chief complaint: Extremity Problem Stated complaint: FOOT WOUND/SWELLING/WEEPING PER EMS Time Seen by Provider: 03/04/23 10:04 Source: patient and EMS Mode of arrival: EMS Limitations: no limitations History of Present Illness HPI narrative: This is an 82-year-old male history of aortic stenosis, hypertension, diabetes, CKD stage 3, septic arthritis of the foot, SVT presenting to the emergency department for evaluation of left foot ulcer this has been going on for months of worsening acutely over the past few weeks, patient is followed by translator interpreter who sent him in a few days ago for evaluation, they told him he should be admitted but patient decided to leave due to commitments at home. Patient reports white/ yellow discharge from wound foul smelling discharge. Denies fevers, chills, chest pain, shortness of breath, nausea, vomiting, recent trauma. Related Data Home Medications Medication Instructions Recorded Confirmed ascorbic acid (vitamin C) 1,000 mg 500 mg PO DAILY 06/06/20 11/12/22 tablet calcium carbonate 600 mg calcium 600 mg PO DAILY 06/06/20 11/12/22 (1,500 mg) tablet (Calcium) cholecalciferol (vitamin D3) 25 25 mcg PO DAILY 06/06/20 11/12/22 mcg (1,000 unit) capsule nifedipine 90 mg tablet,extended 90 mg PO BEDTIME 06/06/20 11/12/22 release omega-3 fatty acids 1,000 mg 1,000 mg PO DAILY 06/06/20 11/12/22 capsule (Fish Oil Concentrate) vitamin B complex (B 1 tab PO DAILY 06/06/20 11/12/22 Complex-Vitamin B12 tablet) flaxseed 1 tab PO DAILY 04/29/22 11/12/22 Previous Rx's Medication Instructions Recorded metoprolol succinate 25 mg 25 mg PO DAILY #90 tabs 01/14/23 tablet,extended release 24 hr doxycycline hyclate 100 mg tablet 100 mg PO BID #20 tabs 03/01/23 Allergies Allergy/AdvReac Type Severity Reaction Status Date / Time latex AdvReac Unknown itchy Uncoded 02/28/23 21:55 since picc line has been put in Review of Systems 2 Review of Systems: Constitutional : No Weight loss, No Fever, No Chills, No Fatigue, No Malaise ENT/Mouth : No sore throat, No Rhinorrhea Eyes: No Eye Pain, No Swelling, No Redness Cardiovascular : No Chest Pain, No SOB, No Dyspnea on Exertion, No Orthopnea, No Edema, No Palpitations Respiratory : No Cough, No Sputum, No Wheezing Gastrointestinal : No Nausea, No Vomiting, No Diarrhea, No Constipation, No abdominal Pain, No Hematochezia, No Melena Genitourinary : No Dysuria, No Urinary Frequency, No Hematuria, Musculoskeletal : No joint pain, No Myalgias, No Joint Swelling Skin : No Skin Lesions, No rash, + wound Neuro : No Weakness, No Numbness, No Dizziness, No Headache Psych : No Anxiety/Panic, No Depression All other systems reviewed and are negative Yes all other systems are reviewed and are negative [facility] Past Medical History Attestation statement: The following information was validated with the patient. Source: old records reviewed and nursing notes reviewed Medical History HTN (hypertension) Osteomyelitis Sepsis Diabetic neuropathy History of osteomyelitis Aortic stenosis Cellulitis of foot Heart murmur Kidney disease Diabetes Surgical History Hx of colonoscopy Hx of esophagogastroduodenoscopy History of hammer toe correction (~05/2021) Family History Family History Father Heart attack CVD (cardiovascular disease) Mother Colon cancer Social History Social History Household Members: Spouse Housing: House Do you presently have visiting nurse or other home services: Yes Alcohol intake: never Patient Tobacco Use Status: Never used Tobacco Smoked in Last 30 Days: No Use of substances other than those prescribed or required for medical reasons: No Advance Directives: No Advance Directives Information Provided: Yes service: No Current occupational status: retired Physical Exam ED Vital Signs: Vital Signs - 24 hr 03/04/23 10:23 Temperature 97.6 F Pulse Rate 101 H Respiratory Rate 18 Blood Pressure 151/57 H Pulse Oximetry 95 Oxygen Delivery Method Room Air BMI result Body Mass Index 29.5 vss Appearance: Alert.? Oriented X3.? No acute distress.? Head: Normocephalic, atraumatic, no step-offs or deformities Eyes: Pupils equal, round and reactive to light.? ENT: Pharynx normal.? Neck: Normal inspection.? Neck supple.? CVS: Normal heart rate and rhythm.? Pulses normal.? Respiratory: No respiratory distress.? Breath sounds normal.? Abdomen: Soft and nontender.? Skin: Skin warm and dry.? Normal skin color.? Normal skin turgor.?+ 2 x 2 cm area of ulcerative lesion at the bottom of left foot, no fluctuation, + yellow/white drainage, surrounded by area of errythema, warmth, slight tenderness. Extremities: No lower extremity edema.? No calf ttp. 5/5 strength to bilateral upper and lower extremities 2+ DP, AT, PT pulsee equal and b/l Neuro: Oriented X 3.? No motor deficit.? No sensory deficit. CN 2-12 intact Course Reevaluation(s) Reevaluation #1: Patient's CBC with leukocytosis of 20,000 with left shift. History with a acute on chronic kidney injury patient receiving fluids. Also noted to have a markedly elevated CRP. Foot x-rays pending. Still some suspicion for osteomyelitis. For this reason patient is being treated with vancomycin and Zosyn. Plan is for hospital admission. Time: 11:05 Medications Administered Generic Name Dose Route Start Last Admin Trade Name Freq PRN Reason Stop Dose Admin Vancomycin HCl 2,000 mg in 500 mls @ 250 mls/hr 03/04/23 11:00 03/04/23 11:29 Vancomycin/Ns IV 03/04/23 12:59 250 mls/hr ONCE ONE Administration Discontinued Medications Generic Name Dose Route Start Last Admin Trade Name Freq PRN Reason Stop Dose Admin Piperacillin Sod/Tazobactam 50 mls @ 100 mls/hr 03/04/23 10:06 03/04/23 11:17 Sod 3.375 gm/ Sodium Chloride IV 03/04/23 10:35 Infused ONCE ONE Infusion Sodium Chloride 3,210 mls @ 3,210 mls/hr 03/04/23 11:04 03/04/23 11:29 Ns 30 ml/kg infuse over 1 hr (3210 ml) 03/04/23 12:03 3,210 mls/hr IV Administration .Q1H STA Medical Decision Making Medical Decision Making [facility] Narrative: 1011 82-year-old male presents with wound to left foot that is progressively worsening over the past few weeks. Upon chart review it appears as though on 02/28/2023 patient decided to leave this hospital against medical advice, patient presented with a similar presentation, he was discharged with oral antibiotics and was supposed to follow-up with his translator interpreter. He was meeting SIRS criteria at that time. Physical exam significant for Skin warm and dry.? Normal skin color.? Normal skin turgor.?+ 2 x 2 cm area of ulcerative lesion at the bottom of left foot, no fluctuation, + yellow/white drainage, surrounded by area of errythema, warmth, slight tenderness. concerns for osteomyelitis versus worsening cellulitis. unlikely arterial, venous occlusion, no signs of gangrene at this time. Will rule out underlying fractures or dislocations with x-ray. Plan labs, imaging, inflammatory markers. At this time infection suspected will give antibiotics, fluids. Differential Diagnosis Differential Diagnoses: The differential diagnosis associated with the presentation includes concerns for osteomyelitis versus worsening cellulitis. unlikely arterial, venous occlusion, no signs of gangrene at this time. Will rule out underlying fractures or dislocations with x-ray. Admission/Observation Consideration of admission/observation: Escalation of care including admission/observation considered likely Consult Healthcare Provider Management of the patient was discussed with: Hospitalist Lab Data MDM Lab Attestation statement: I reviewed the patient's lab results. 03/04/23 10:35 03/04/23 10:35 Labs: Lab Results 03/04/23 Range/Units 10:35 WBC 20.0 H (4.8-10.8) X10*3/uL RBC 3.88 L (4.60-5.80) X10*6/uL Hgb 10.8 L (14.0-18.0) g/dl Hct 32.0 L (42.0-52.0) % MCV 82.5 (80.0-98.0) fL MCH 27.8 (27.0-33.0) pg MCHC 33.8 (31.0-36.0) g/dl RDW 14.3 (11.0-16.0) % Plt Count 260 (160-400) X10*3/uL MPV 9.7 (9.4-12.4) fL Immature Gran % (Auto) 0.9 H (0.0-0.4) % Neut % (Auto) 82.5 H (45-73) % Lymph % (Auto) 5.0 L (20-40) % [place] % (Auto) 11.2 H (2-11) % Eos % (Auto) 0.0 (0-4) % Baso % (Auto) 0.4 (0-2) % Lymph # (Auto) 1.0 L (1.2-4.9) X10*3/uL [place] # (Auto) 2.3 H (0.1-1.2) X10*3/uL Eos # (Auto) 0.0 (0.0-0.4) X10*3/uL Baso # (Auto) 0.1 (0.0-0.2) X10*3/uL Abs Immat Gran (auto) 0.19 H (0.00-0.03) X10*3/uL Absolute Neuts (auto) 16.5 H (2.0-8.3) x10*3/uL Absolute Nucleated RBC 0.000 (0.0-0.012) X10*3/uL Nucleated RBC % (auto) 0.0 (0.0-0.2) /100WBC Smear Tech's Comments VERIFIED ESR 98 H (0-15) MM/HR Sodium 136 (135-145) mmol/L Potassium 4.1 (3.3-5.1) mmol/L Chloride 107 (96-108) mmol/L Carbon Dioxide 17 L (22-29) mmol/L Anion Gap 16 (12-20) BUN 44 H (9-16) mg/dL Creatinine 2.73 H (0.5-1.4) mg/dL Estim Creat Clear Calc 27.5 Estimated GFR 22 Random Glucose 272 H (60-115) mg/dL Lactic Acid 1.3 (0.5-2.0) mmol/L Calcium 9.2 (8.4-10.2) mg/dL Magnesium 2.1 (1.6-2.6) mg/dL Total Bilirubin 1.1 H (0.0-1.0) mg/dL AST 24 (5-37) U/L ALT 30 (0-40) U/L Alkaline Phosphatase 148 H (39-117) U/L C-Reactive Protein 32.36 H (< or = 0.50) mg/dL Total Protein 7.2 (6.5-8.0) g/dL Albumin 3.4 L (3.5-5.0) g/dL Independent Interpretation I performed an independent interpretation of an: Plain X-Ray Radiology Impression Discussion of test interpretation with radiology: I have reviewed the radiologist's reading. External Record Review External record reviewed: Office record, Outpatient record, Prior outpatient labs, Prior outpatient radiology, Primary care record and Outside ED record Tests considered The following testing was considered but not selected: considered MRI but would not change treatmenet course. Chronic Conditions Patient?s care impacted by: Diabetes and Other (CKD) Core Measures AMI core measures followed: Yes Measure exclusions: not indicated Critical Care Time Critical Care Time Critical Care Time: Yes Total Critical Care Time: 35 Attestation: I attest to this time spent taking care of the patient, obtaining history, physical, reviewing labs, imaging, speaking to my attending, speaking to specialist. Discharge Plan Discharge Clinical Impression: Cellulitis, Open wound of left foot Patient Disposition: Admitted As Inpatient
[2023-03-04 10:23] VITALS: BP 151/57; PULSE 101; RESP 18; TEMP 36.4; O2SAT 95; BMI 29.5
[2023-03-04 10:58] LABS: Alanine Aminotransferase 30 U/L (0-40); Albumin Level 3.4 g/dL (3.5-5.0); Alkaline Phosphatase 148 U/L (39-117); Anion Gap 16 (12-20); Aspartate Amino Transferase 24 U/L (5-37); Bilirubin Total 1.1 mg/dL (0.0-1.0); Blood Urea Nitrogen 44 mg/dL (9-16); C Reactive Protein 32.36 mg/dL (< or = 0.50); Calcium 9.2 mg/dL (8.4-10.2); Carbon Dioxide 17 mmol/L (22-29); Chloride 107 mmol/L (96-108); Creatinine Clr Calc Pharmacy 27.5; Estimated Glomerular Filt Rate 22; Glucose Random 272 mg/dL (60-115); Magnesium 2.1 mg/dL (1.6-2.6); Potassium 4.1 mmol/L (3.3-5.1); Sodium 136 mmol/L (135-145); Total Protein 7.2 g/dL (6.5-8.0)
--- NOTE | 2023-03-04 11:33 | PC.NURSE ---
pt a&ox4, vss, reporting wound to left foot since , eval'd by commercial field inspector and advised to come to C - d/c on PO abx on Thursday. since Thursday worsening redness/swelling/warmth. 22G IV in right hand placed by EMS, 2nd set of cultures obtained by tech, abx and NS running per JUL. pt pending admission. NPO at this time. no new orders.
--- NOTE | 2023-03-04 12:48 | P.HPHOSP_ITS ---
History of Present Illness Date of Service: 03/04/23 Attending physician on admission: [facility] Chief Complaint: foot infection 82-year-old male with history of hypertension, [id number] type 2 diabetes, CKD stage 3, history SVT, aortic stenosis, history osteomyelitis R great toe, and diabetic polyneuropathy presenting to the ED earlier today for evaluation of a left foot infection. The patient has been following at [facility] for several years for management of a nonhealing ulcer on the plantar surface of the left foot. He states for the last week or so, there has been purulent drainage as well as redness and swelling of the foot. Last night developed a blood blister between the 1st and 2nd toes. He denies any pain in the foot. He denies any fevers or chills. He reports he has been hospitalized in the past for diabetic foot infection. Reports last hemoglobin A1c was 6.2% in glucose levels at home are well controlled. Denies any history of cigarette smoking. No alcohol use or illicit drug use. He did present to the ER 4 days ago and was recommended for admission but he left against medical advice due to home circumstances and was discharged on oral antibiotics which did not improve symptoms. On arrival, patient is slightly tachycardic at 01:02 but afebrile, vitals otherwise stable. He has a leukocytosis of 20.0. Renal function baseline, electrolyte levels normal except for CO2 17. Glucose 272. CRP 32.36, ESR 98. X-ray of the left foot shows soft tissue gas with soft tissue swelling proximal phalanx 1st digit suspicious for abscess or cellulitis but no underlying periosteal or bony abnormality to suspect osteomyelitis. In the ED, has been given sepsis fluids, 3.2 L IV NS, 3.375 g IV Zosyn, and IV vancomycin. Review of Systems 2 Review of Systems: General: No fevers, malaise, unintentional weight loss Cardiovascular: No chest pain, palpitations, or leg edema Respiratory: No shortness of breath, wheezing, cough GI: No abdominal pain, nausea, vomiting, diarrhea, constipation, melena, hematochezia : No dysuria, hematuria, increased urinary frequency, decreased urinary output MSK: No myalgia, back pain Neuro: No headaches, weakness, paresthesias Skin: +foot ulcer w/ purulent drainage, +erythema and warmth foot PMFSH Medical History HTN (hypertension) Osteomyelitis Sepsis Diabetic neuropathy History of osteomyelitis Aortic stenosis Cellulitis of foot Heart murmur Kidney disease Diabetes Family History Father Heart attack CVD (cardiovascular disease) Mother Colon cancer Surgical History Hx of colonoscopy Hx of esophagogastroduodenoscopy History of hammer toe correction (~05/2021) Social History Household Members: Spouse Housing: House Do you presently have visiting nurse or other home services: Yes Alcohol intake: never Patient Tobacco Use Status: Never used Tobacco Smoked in Last 30 Days: No Use of substances other than those prescribed or required for medical reasons: No Advance Directives: No Advance Directives Information Provided: Yes Nutrition Risks: No Nutritional Risk service: No Current occupational status: retired [employer] Allergies Allergy/AdvReac Type Severity Reaction Status Date / Time latex AdvReac Unknown itchy Uncoded 02/28/23 21:55 since picc line has been put in Active Medications: Current Medications Acetaminophen (Acetaminophen 325 Mg Tablet) 650 mg PO Q6H PRN PRN Reason: Pain, Mild (Pain Scale 1-3) Dextrose (Dextrose 50 % 25 Gm/50 Ml Syringe) 25 gm IVPUSH Q15M PRN; Protocol PRN Reason: per Hypoglycemia Standing Ord. Docusate Sodium (Docusate Sodium 100 Mg Capsule) 100 mg PO DAILY PRN PRN Reason: Constipation Glucose (Glucose Gel 15 Gm Gel..Gram.) 15 gm PO Q15M PRN; Protocol PRN Reason: per Hypoglycemia Standing Ord. Heparin Sodium (Porcine) (Heparin Sodium,Porcine 5,000 Unit/Ml Vial) 5,000 unit SUBCUT Q12H PERRI Vancomycin HCl (Vancomycin/Ns) 2,000 mg in 500 mls @ 250 mls/hr IV ONCE ONE Stop: 03/04/23 12:59 Last Admin: 03/04/23 11:29 Dose: 250 mls/hr Piperacillin Sod/Tazobactam (Sod 2.25 gm/ Sodium Chloride) 50 mls @ 100 mls/hr IV Q8H [facility] Doxycycline Hyclate 100 mg/ (Sodium Chloride) 250 mls @ 166.67 mls/hr IV Q12H [facility] Insulin Human Lispro (Insulin Lispro 100 Unit/Ml 3 Ml Vial) 0 unit SUBCUT QIDACHS [facility]; Protocol Ondansetron HCl (Ondansetron Hcl 4 Mg/2 Ml Vial) 4 mg IVPUSH Q8H PRN PRN Reason: Nausea and Vomiting Sodium Chloride (0.9 % Sodium Chloride Flush 3 Ml Syringe) 3 ml IVFLUSH QSHIFT [facility] Home Medications Medication Instructions Recorded Confirmed Last Taken Type ascorbic acid (vitamin C) 1,000 mg 500 mg PO DAILY 06/06/20 03/04/23 03/04/23 History tablet calcium carbonate 600 mg calcium 600 mg PO DAILY 06/06/20 03/04/23 03/04/23 History (1,500 mg) tablet (Calcium) cholecalciferol (vitamin D3) 25 25 mcg PO DAILY 06/06/20 03/04/23 03/04/23 History mcg (1,000 unit) capsule nifedipine 90 mg tablet,extended 90 mg PO BEDTIME 06/06/20 03/04/23 03/03/23 History release omega-3 fatty acids 1,000 mg 1,000 mg PO DAILY 06/06/20 03/04/23 03/04/23 History capsule (Fish Oil Concentrate) vitamin B complex (B 1 tab PO DAILY 06/06/20 03/04/23 03/04/23 History Complex-Vitamin B12 tablet) Physical Exam 2 Vital Signs and Narrative: Vital Signs: Last Vital Signs Temp 97.6 F 03/04/23 10:23 Pulse 101 H 03/04/23 10:23 Resp 18 03/04/23 10:23 BP 151/57 H 03/04/23 10:23 Pulse Ox 95 03/04/23 10:23 O2 Del Method Room Air 03/04/23 10:23 BMI result Body Mass Index 29.5 Constitutional - Awake and Alert, No apparent distress Eyes - PERRLA, EOMI Cardiovascular - S1S2, RRR, IV/ systolic ejection murmur, 1+ pedal pulses bilaterally Respiratory - Normal lung expansion, Normal respiratory effort, No respiratory distress, CTA bilaterally Gastrointestinal - NT / ND; +BS; No rebound or guarding Extremities - no calf tenderness bilaterally, no swelling Musculoskeletal - Normal inspection, normal ROM Skin - Warm/Dry. 1cm shallow ulceration plantar aspect of left mid-forefoot with purulent drainage. There is also a bullae with what appears to be serosanguineous fluid between the 1st and 2nd left toes with erythema covering the distal half of the foot. See photos Neurological - Alert & oriented x3, diminished sensation left foot Psychological - Appropriate affect Results Labs 03/05/23 04:32 03/05/23 04:32 Labs: Laboratory Results - last 24 hr 03/04/23 10:35 MCV 82.5 MCH 27.8 MCHC 33.8 RDW 14.3 Plt Count 260 MPV 9.7 Immature Gran % (Auto) 0.9 H Neut % (Auto) 82.5 H Lymph % (Auto) 5.0 L [place] % (Auto) 11.2 H Eos % (Auto) 0.0 Baso % (Auto) 0.4 Lymph # (Auto) 1.0 L [place] # (Auto) 2.3 H Eos # (Auto) 0.0 Baso # (Auto) 0.1 Abs Immat Gran (auto) 0.19 H Absolute Neuts (auto) 16.5 H Absolute Nucleated RBC 0.000 Nucleated RBC % (auto) 0.0 Smear Tech's Comments VERIFIED ESR 98 H Anion Gap 16 Estim Creat Clear Calc 27.5 Estimated GFR 22 Random Glucose 272 H Lactic Acid 1.3 Calcium 9.2 Magnesium 2.1 Total Bilirubin 1.1 H AST 24 ALT 30 Alkaline Phosphatase 148 H C-Reactive Protein 32.36 H Total Protein 7.2 Albumin 3.4 L Imaging Radiologist's Impressions: Impressions Foot X-Ray 03/04/23 10:50 IMPRESSION: Soft tissue gas with soft tissue swelling proximal phalanx first digit suspicious for abscess or cellulitis. There is no underlying periosteal or bony abnormality to suspect any osteomyelitis. Assessment and Plan (1) Open wound of left foot: Status: Acute (2) Cellulitis: Status: Acute (3) Acute hypoxemic respiratory failure: Status: Acute (4) CHF exacerbation: Status: Acute (5) Pneumonia: Status: Acute Plan 82-year-old male with history of hypertension, [id number] type 2 diabetes, CKD stage 3, history SVT, aortic stenosis, history osteomyelitis R great toe, and diabetic polyneuropathy admitted for diabetic foot infection with sepsis and question of osteomyelitis. #Infected stage 2 foot ulcer with sepsis- plantar surface left foot -possibly related to diabetes vs PAD -leukocytosis 20.0, tachycardic to 102. Lactic acid normal, no end-organ damage. No hypotension. No severe sepsis/shock -Follows with [facility] -IV doxycycline and zosyn (initiated 03/04) -arterial Doppler LUE -suspicion for osteomyelitis with ESR 98, CRP 32. MRI left foot ordered -Vascular surgery consult -Consider ID consult if osteo confirmed -weight and balance control agent -follow CBC, cultures #Non-insulin dependent type 2 diabetes- with hyperglycemia -last A1c 6.7% -POC glucose -diabetic diet -humalog on sliding scale #HTN -bp reasonably controlled -continue metoprolol, nifedipine #History SVT -continue bb, ccb #CKD stage 3 -renal function baseline DVT prophylaxis- heparin Full code Pt requires inpatient stay at least 2 midnights for management of infected stage II diabetic foot ulcer with sepsis and with possible osteomyelitis requiring IV antibiotics requiring expert consultation, possible amputation vs intermediate antibiotics. Addendum: Patient awoke from a nap at around 14:00 became hypoxic to 80%, now requiring 4 L supplemental O2. Upon waking, reporting dyspnea. He states that for about 6 weeks he has had a nonproductive cough but denies any shortness of breath, fevers, chills prior to today. He states when he woke from a nap he did feel short of breath but denies any lightheadedness, palpitations, or chest pain. On auscultation, patient noted to have crackles bilaterally. No respiratory distress. Concern for pulmonary edema as patient received 3.2 L IVF in the ED and he was meeting sepsis criteria. Chest x-ray was ordered and on independent read does appear to have pulmonary vascular congestion as well as a left lower lobe pneumonia. Patient given 20 mg IV Lasix. BNP returned at 550, troponin within normal limits. # acute hypoxemic respiratory failure secondary fluid overload related to congestive heart failure -no known history of CHF -given 20 mg IV Lasix. Continue 20 mg IV Lasix -strict I&O -cardiac diet -echocardiogram ordered -cardiology consult -continue supplemental O2 to maintain oximetry greater than 92%, titrate as tolerated # left lower lobe pneumonia -symptoms ongoing 6 weeks -strep pneumo antigen, Legionella antigen, sputum culture ordered -on IV doxycycline and Zosyn as above -symptomatic management -follow CBC, cultures Time Spent With Patient Time: Total time managing care of this patient today ____ minutes. Quality Stroke Does the patient have a stroke diagnosis?: No VTE Prior VTE?: No VTE Risk Level:: Medical - moderate - high VTE Device Contraindication: Treatment Not Indicated VTE Drug Contraindication: N/A - Med Ordered
[2023-03-04 14:00] VITALS: BP 135/56; PULSE 80; RESP 18; TEMP 36; O2SAT 98
--- NOTE | 2023-03-04 14:21 | PC.NURSE ---
MRI screening form completed w pt and faxed.
[2023-03-04] MEDS: Doxycycline Hyclate 100 MG in 0.9 % Sodium Chloride 250 ML 166.67 MG IV (15:16)
--- NOTE | 2023-03-04 15:25 | PHA.MEDREC ---
Pharmacy Consult ? Medication Reconciliation Pharmacy has completed the medication reconciliation. Patient reported medications, reports he only takes 2 prescription medications. Patient has no clue what isosorbide dinitrate is even though it was on his claim history. Hannah Benjamin, DungD
--- NOTE | 2023-03-04 18:00 | PC.NURSE ---
pt reporting increased coughing/sob after waking up from nap. pt reports having these episodes over the past 5 weeks, but has been attributing them to his CPAP machine. O2 sat @ 80% on RA, pt repositioned sitting up in bed, 2L O2 via NC applied. febrile - tylenol given per JUL. pt requesting chest XR, provider aware.
[2023-03-04 18:02] LABS: Glucose, Whole Blood 140 mg/dL (60-115)
[2023-03-04 18:05] VITALS: BP 143/84; PULSE 101; RESP 22; TEMP 38.2; O2SAT 80
[2023-03-04 18:06] VITALS: O2SAT 95
[2023-03-04] MEDS: Acetaminophen 325 MG TABLET 650 MG PO (18:10)
[2023-03-04 18:11] VITALS: PULSE 87; RESP 18; O2SAT 95
--- NOTE | 2023-03-04 19:30 | PM.EVENT ---
Event Note Date of Service: 03/04/23 Event Note: RN notified provider that patient fell asleep for a nap and upon waking became hypoxic to 80%, now on 4L supplemental O2. Pt reporting sob started this afternoon. He does report he has had a dry cough intermittently ongoing for about 6 weeks but prior to today has had no fevers, chills, or any sputum production with cough, or shortness of breath. He currently denies any chest pain or lightheadedness. Patient did receive 3.2 L bolus fluids in 1 hour. There are scattered crackles auscultated on exam, 1+ ble edema. Concern for pulmonary edema. CXR, trop, BNP ordered. Will also check respiratory pathogen panel but given duration of cough, low suspicion for viral URI, this is likely related to the uncontrolled GERD he also reports. Time Spent With Patient Time: Total time managing care of this patient today ____ minutes.
[2023-03-04] MEDS: Furosemide 20 MG/2 ML VIAL IVPUSH (19:32)
[2023-03-04 20:00] LABS: B Type Natriuretic Peptide 558 pg/mL (<100); Troponin-I High Sensitivity 27.2 ng/L (<3.5-35.0)
[2023-03-04] MEDS: gadobutroL 10 ML VIAL IVPUSH (21:33)
[2023-03-04 22:27] LABS: Glucose, Whole Blood 190 mg/dL (60-115)
[2023-03-04] MEDS: NIFEdipine ER 90 MG TAB.ER.24 PO (23:28)
[2023-03-04] MEDS: Insulin Lispro 100 UNIT/ML 3 ML VIAL SUBCUT (23:29)
[2023-03-05] VITALS (8 sets, daily range): BP systolic 121–141; BP diastolic 56–66; PULSE 80–103; RESP 18–24; TEMP 36.7–37.2; O2SAT 91–98
[2023-03-05 05:38] LABS: Basophils Absolute Auto 0.1 X10*3/uL (0.0-0.2); Basophils Percent Auto 0.7 % (0-2); Eosinophils Absolute Auto 0.3 X10*3/uL (0.0-0.4); Eosinophils Percent Auto 1.4 % (0-4); Hematocrit 30.8 % (42.0-52.0); Hemoglobin 10.1 g/dl (14.0-18.0); Imm Gran Abs Auto 0.18 X10*3/uL (0.00-0.03); Lymphocytes Absolute Auto 1.2 X10*3/uL (1.2-4.9); Lymphocytes Percent Auto 6.5 % (20-40); MANUAL DIFF FLAG SCAN; Mean Corpuscular HGB Conc 32.8 g/dl (31.0-36.0); Mean Corpuscular Hemoglobin 27.4 pg (27.0-33.0); Mean Corpuscular Volume 83.7 fL (80.0-98.0); Mean Platelet Volume 10.2 fL (9.4-12.4); Monocytes Percent Auto 11.2 % (2-11); Neutrophils Percent Auto 79.2 % (45-73); Platelet Count 267 X10*3/uL (160-400); Red Blood Count 3.68 X10*6/uL (4.60-5.80); Red Cell Distribution Width 14.4 % (11.0-16.0); SCAN SMEAR FLAG 1; White Blood Count 17.7 X10*3/uL (4.8-10.8)
[2023-03-05] MEDS: Doxycycline Hyclate 100 MG in 0.9 % Sodium Chloride 250 ML 166 MG IV (05:43)
[2023-03-05 05:55] LABS: Anion Gap 15 (12-20); Blood Urea Nitrogen 39 mg/dL (9-16); Calcium 8.7 mg/dL (8.4-10.2); Carbon Dioxide 18 mmol/L (22-29); Chloride 109 mmol/L (96-108); Estimated Glomerular Filt Rate 25; Glucose Random 146 mg/dL (60-115); Sodium 138 mmol/L (135-145)
[2023-03-05 05:58] LABS: SLIDE REVIEW VERIFIED
[2023-03-05 08:26] LABS: Glucose, Whole Blood 145 mg/dL (60-115)
[2023-03-05] MEDS: Metoprolol Succinate ER 25 MG TAB.ER.24H PO (09:46)
[2023-03-05] MEDS: Multivitamin TABLET 1 TAB PO (09:46)
[2023-03-05] MEDS: Ascorbic Acid 500 MG TABLET PO (09:46)
[2023-03-05] MEDS: Furosemide 20 MG/2 ML VIAL IVPUSH ×2 (09:46→23:34)
[2023-03-05] MEDS: Cholecalciferol (Vitamin D3) 25 MCG TABLET PO (09:46)
[2023-03-05] MEDS: Heparin Sodium,Porcine 5,000 UNIT/ML VIAL 5000 UNIT SUBCUT ×2 (09:48→19:45)
--- NOTE | 2023-03-05 09:59 | PC.NURSE ---
200mls output in urinal, 20mg iv push lasiks given
--- NOTE | 2023-03-05 10:48 | PM.CNCAR ---
History of Present Illness History of Present Illness Date of Service: 03/05/23 Requesting physician: Jaime Leary Chief complaint: Diabetic foot infection, CHF Narrative: Pleasant 82 year gentleman who follows with me in the clinic and has background history of moderate aortic valve stenosis, chronic kidney disease, hypertension, diabetes and previous diabetic foot infection. He is presenting because he went to his purchasing specialist because he noticed area of redness on his foot. He was advised by the purchasing specialist to go to the emergency department. He had an MRI which is showing abscess in the foot but no obvious osteomyelitis. He was noticed to have leukocytosis and has been coughing for few weeks. The cough is nonproductive. In the ER he was given some fluids and then developed sudden shortness of breath with hypoxia. His x-rays showed some cephalization and concern for infiltrate in the left base. He was started on antibiotics and was given Lasix. He is saying he is feeling little better currently. He is still coughing. He was given 20 of Lasix this morning again. Denying any chest discomfort. Troponins were normal. Labs imaging and EKG reviewed. ON LICENSE OF [facility] Past Medical History Medical History HTN (hypertension) Osteomyelitis Sepsis Diabetic neuropathy History of osteomyelitis Aortic stenosis Cellulitis of foot Heart murmur Kidney disease Diabetes Family History Family History Father Heart attack CVD (cardiovascular disease) Mother Colon cancer Surgical History Surgical History Hx of colonoscopy Hx of esophagogastroduodenoscopy History of hammer toe correction (~05/2021) Social History Social History Household Members: Spouse Housing: House Do you presently have visiting nurse or other home services: Yes Alcohol intake: never Patient Tobacco Use Status: Never used Tobacco Smoked in Last 30 Days: No Use of substances other than those prescribed or required for medical reasons: No Advance Directives: No Advance Directives Information Provided: Yes Nutrition Risks: No Nutritional Risk service: No Current occupational status: retired Meds Allergies Allergy/AdvReac Type Severity Reaction Status Date / Time latex AdvReac Unknown itchy Uncoded 02/28/23 21:55 since picc line has been put in Active Medications: Current Medications Acetaminophen (Acetaminophen 325 Mg Tablet) 650 mg PO Q6H PRN PRN Reason: Pain, Mild (Pain Scale 1-3) Last Admin: 03/04/23 18:10 Dose: 650 mg Ascorbic Acid (Ascorbic Acid 500 Mg Tablet) 500 mg PO DAILY [facility] Last Admin: 03/05/23 09:46 Dose: 500 mg Calcium Carbonate (Calcium Carbonate 500 Mg Tablet) 500 mg PO DAILY [facility] Last Admin: 03/05/23 09:46 Dose: 500 mg Dextrose (Dextrose 50 % 25 Gm/50 Ml Syringe) 25 gm IVPUSH Q15M PRN; Protocol PRN Reason: per Hypoglycemia Standing Ord. Docusate Sodium (Docusate Sodium 100 Mg Capsule) 100 mg PO DAILY PRN PRN Reason: Constipation Furosemide (Furosemide 20 Mg/2 Ml Vial) 20 mg IVPUSH DAILY [facility]; Protocol Last Admin: 03/05/23 09:46 Dose: 20 mg Glucose (Glucose Gel 15 Gm Gel..Gram.) 15 gm PO Q15M PRN; Protocol PRN Reason: per Hypoglycemia Standing Ord. Guaifenesin (Guaifenesin 200 Mg/10 Ml 10 Ml Liquid) 10 ml PO Q4H PRN PRN Reason: Cough Guaifenesin/Dextromethorphan (Guaifenesin Dm 100/10/5 Ml 5 Ml Syrup) 5 ml PO Q4H PRN PRN Reason: Cough Heparin Sodium (Porcine) (Heparin Sodium,Porcine 5,000 Unit/Ml Vial) 5,000 unit SUBCUT BID [facility] Last Admin: 03/05/23 09:48 Dose: 5,000 unit Piperacillin Sod/Tazobactam (Sod 2.25 gm/ Sodium Chloride) 50 mls @ 100 mls/hr IV Q6H [facility] Last Infusion: 03/05/23 10:00 Dose: Infused Doxycycline Hyclate 100 mg/ (Sodium Chloride) 250 mls @ 166.67 mls/hr IV Q12H [facility] Last Infusion: 03/05/23 08:03 Dose: Infused Insulin Human Lispro (Insulin Lispro 100 Unit/Ml 3 Ml Vial) 0 unit SUBCUT QIDACHS [facility]; Protocol Last Admin: 03/05/23 08:02 Dose: Not Given Metoprolol Succinate (Metoprolol Succinate Er 25 Mg Tab.Er.24h) 25 mg PO DAILY [facility]; Protocol Last Admin: 03/05/23 09:46 Dose: 25 mg Multivitamins/Vitamin C (Multivitamin Tablet) 1 tab PO DAILY [facility] Last Admin: 03/05/23 09:46 Dose: 1 tab Nifedipine (Nifedipine Er 90 Mg Tab.Er.24) 90 mg PO BEDTIME [facility] Last Admin: 03/04/23 23:28 Dose: 90 mg Ondansetron HCl (Ondansetron Hcl 4 Mg/2 Ml Vial) 4 mg IVPUSH Q8H PRN PRN Reason: Nausea and Vomiting Sodium Chloride (0.9 % Sodium Chloride Flush 3 Ml Syringe) 3 ml IVFLUSH QSHIFT [facility] Last Admin: 03/05/23 08:02 Dose: Not Given Vitamin D (Cholecalciferol (Vitamin D3) 25 Mcg Tablet) 25 mcg PO DAILY [facility] Last Admin: 03/05/23 09:46 Dose: 25 mcg Home Medications Medication Instructions Recorded Confirmed Last Taken Type ascorbic acid (vitamin C) 1,000 mg 500 mg PO DAILY 06/06/20 03/04/23 03/04/23 History tablet calcium carbonate 600 mg calcium 600 mg PO DAILY 06/06/20 03/04/23 03/04/23 History (1,500 mg) tablet (Calcium) cholecalciferol (vitamin D3) 25 25 mcg PO DAILY 06/06/20 03/04/23 03/04/23 History mcg (1,000 unit) capsule nifedipine 90 mg tablet,extended 90 mg PO BEDTIME 06/06/20 03/04/23 03/03/23 History release omega-3 fatty acids 1,000 mg 1,000 mg PO DAILY 06/06/20 03/04/23 03/04/23 History capsule (Fish Oil Concentrate) vitamin B complex (B 1 tab PO DAILY 06/06/20 03/04/23 03/04/23 History Complex-Vitamin B12 tablet) Physical Exam Vital Signs: Vital Signs: Last Vital Signs Temp 100.8 F H 03/04/23 18:05 Pulse 92 03/05/23 08:00 Resp 18 03/05/23 08:00 BP 121/56 L 03/05/23 08:00 Pulse Ox 92 03/05/23 08:00 O2 Del Method Oxymask 03/05/23 08:00 O2 Flow Rate 13 03/05/23 07:51 FiO2 70 03/05/23 07:51 BMI result Body Mass Index 29.5 GENERAL APPEARANCE: in no acute distress, pleasant. NECK: no carotid bruit, + jugular venous distention. SKIN: no suspicious lesions, warm and dry. HEART: Ejection systolic murmur aortic area with preserved 2nd heart sound, regular rate and rhythm. LUNGS: Crackles at bases. ABDOMEN: soft, nontender. EXTREMITIES: Mild edema. PERIPHERAL PULSES: equal. NEUROLOGIC: No gross deficits, AAO X 3 Objective Labs and Meds 03/05/23 04:32 03/05/23 04:32 Lab results: Laboratory Results - last 24 hr 03/04/23 03/04/23 03/04/23 10:35 17:58 19:24 WBC 20.0 H RBC 3.88 L Hgb 10.8 L Hct 32.0 L MCV 82.5 MCH 27.8 MCHC 33.8 RDW 14.3 Plt Count 260 MPV 9.7 Immature Gran % (Auto) 0.9 H Neut % (Auto) 82.5 H Lymph % (Auto) 5.0 L Cascade % (Auto) 11.2 H Eos % (Auto) 0.0 Baso % (Auto) 0.4 Lymph # (Auto) 1.0 L C[place] # (Auto) 2.3 H Eos # (Auto) 0.0 Baso # (Auto) 0.1 Abs Immat Gran (auto) 0.19 H Absolute Neuts (auto) 16.5 H Absolute Nucleated RBC 0.000 Nucleated RBC % (auto) 0.0 Smear Tech's Comments VERIFIED ESR 98 H Sodium 136 Potassium 4.1 Chloride 107 Carbon Dioxide 17 L Anion Gap 16 BUN 44 H Creatinine 2.73 H Estim Creat Clear Calc 27.5 Estimated GFR 22 POC Glucose 140 H Random Glucose 272 H Lactic Acid 1.3 Calcium 9.2 Magnesium 2.1 Total Bilirubin 1.1 H AST 24 ALT 30 Alkaline Phosphatase 148 H Troponin I High Sens 27.2 C-Reactive Protein 32.36 H B-Natriuretic Peptide 558 H Total Protein 7.2 Albumin 3.4 L 03/04/23 03/05/23 03/05/23 22:20 04:32 07:50 WBC 17.7 H RBC 3.68 L Hgb 10.1 L Hct 30.8 L MCV 83.7 MCH 27.4 MCHC 32.8 RDW 14.4 Plt Count 267 MPV 10.2 Immature Gran % (Auto) 1.0 H Neut % (Auto) 79.2 H Lymph % (Auto) 6.5 L Cascade % (Auto) 11.2 H Eos % (Auto) 1.4 Baso % (Auto) 0.7 Lymph # (Auto) 1.2 Cascade # (Auto) 2.0 H Eos # (Auto) 0.3 Baso # (Auto) 0.1 Abs Immat Gran (auto) 0.18 H Absolute Neuts (auto) 14.0 H Absolute Nucleated RBC 0.000 Nucleated RBC % (auto) 0.0 Smear Tech's Comments VERIFIED ESR Sodium 138 Potassium 4.0 Chloride 109 H Carbon Dioxide 18 L Anion Gap 15 BUN 39 H Creatinine 2.51 H Estim Creat Clear Calc 30.0 Estimated GFR 25 POC Glucose 190 H 145 H Random Glucose 146 H Lactic Acid Calcium 8.7 Magnesium Total Bilirubin AST ALT Alkaline Phosphatase Troponin I High Sens C-Reactive Protein B-Natriuretic Peptide Total Protein Albumin Imaging Radiologist's impression: Impressions Foot X-Ray 03/04/23 10:50 IMPRESSION: Soft tissue gas with soft tissue swelling proximal phalanx first digit suspicious for abscess or cellulitis. There is no underlying periosteal or bony abnormality to suspect any osteomyelitis. Duplex Scan Lower Extremity Artery 03/04/23 13:03 IMPRESSION: Diffuse calcinosis of arterial vessels consistent with underlying diabetes mellitus. Monophasic waveforms seen throughout the left lower extremity. Cannot exclude more proximal iliac artery disease. Posterior tibial artery is occluded Chest X-Ray 03/04/23 18:55 IMPRESSION: Patchy left mid to lower lung field and right lung base infiltrative change. Consider early infectious process/pneumonia. Foot MRI 03/04/23 21:35 IMPRESSION: 1. Focal soft tissue ulceration along the plantar aspect of the 2nd metatarsal head with adjacent cellulitis. Complex fluid collection containing air along the lateral aspect of the 1st proximal phalanx measuring up to 4.3 cm, consistent with abscess formation. No adjacent marrow edema or enhancement to suggest acute osteomyelitis. 2. Chronic resection of the 2nd proximal phalangeal head without acute osseous abnormality. Circumferential subcutaneous edema. 3. 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 Small 2nd metatarsophalangeal joint effusion. 4. Diffuse edema and atrophy throughout the intrinsic foot musculature which can be seen in diabetic patients. Assessment and Plan (1) Pneumonia: Status: Acute (2) CHF exacerbation: Status: Acute (3) Diabetic foot infection: Status: Acute Plan Pleasant 82 year gentleman who is presenting with diabetic foot infection and abscess. This will likely need drainage by surgery. He also was coughing and developed hypoxia in the ER and was thought to have pneumonia and congestive heart failure. Chest x-ray is showing some cephalization and was given IV fluid boluses in the ER so I suspect that he developed mild congestive heart failure due to that. Because of his cough ongoing for some time and left basilar infiltrate he was also given broad-spectrum antibiotics. Agree with IV diuretics at this stage. Monitor creatinine closely. He had echocardiography in November 2022 and does not need repeat ECHO at this point. With biomarkers are normal. I think he developed mild congestive heart failure due to fluid boluses. Also in the setting of infection is quite common that patient's decompensated time. Monitor creatinine closely. Thank you for allowing me to participate in the care of your patient. Please feel free to contact me if you have any questions. Time Spent With Patient Time: Total time managing care of this patient today ____ minutes. Procedures Date of Service Date of Service: 03/05/23
--- NOTE | 2023-03-05 12:50 | PC.NURSE ---
Patient with no output since 20mg iv push lasiks given, provided notified. Switched to nasal cannula, respiratory asked to come assess patient.
[2023-03-05 13:26] LABS: Glucose, Whole Blood 188 mg/dL (60-115)
--- NOTE | 2023-03-05 13:33 | P.CONGS_ITS ---
History of Present Illness Consult details Consult date: 03/05/23 Reason for consult: wound care Narrative: Very pleasant 82-year-old gentleman presents with a diabetic foot infection and abscess. He has a prior history of hypertension diabetes stage 3 kidney disease and osteomyelitis of the right toe. He presented to the ED with a left foot infection where [facility]. He reports that he actually had undergone hyperbaric treatment. He had actually presented to the emergency room and had to leave due to family issues. He now returns to the ER with this diabetic foot infection and concern of pneumonia. He is being worked up by the medical team. He now presents to us for vascular evaluation. Of note granddaughter who is a nurse was also at bedside. Review of Systems 2 Review of Systems: Yes all other systems are reviewed and are negative Constitutional: Constitutional: Reports no additional constitutional complaints ENT: Reports Normal hearing present Cardiovascular: Cardiovascular: Denies chest pain, Denies chest pain at rest, Denies chest pain with activity and Denies pedal edema Respiratory: Respiratory: Denies cough Gastrointestinal: Gastrointestinal: Denies abdominal pain Musculoskeletal: Musculoskeletal: Denies abnormal gait, Denies muscle cramps and Denies radiating pain into limb Integumentary/Breasts: Skin/Breast: Denies skin ulcer and Denies wounds Neurologic: Reports Normal hearing present and Denies abnormal gait Psychiatric: Psychiatric: Reports no additional psychiatric complaints [facility] Past Medical History Medical History HTN (hypertension) Osteomyelitis Sepsis Diabetic neuropathy History of osteomyelitis Aortic stenosis Cellulitis of foot Heart murmur Kidney disease Diabetes Family History Family History Father Heart attack CVD (cardiovascular disease) Mother Colon cancer Surgical History Surgical History Hx of colonoscopy Hx of esophagogastroduodenoscopy History of hammer toe correction (~05/2021) Social History Social History Household Members: Spouse Housing: House Do you presently have visiting nurse or other home services: Yes Alcohol intake: never Patient Tobacco Use Status: Never used Tobacco Smoked in Last 30 Days: No Use of substances other than those prescribed or required for medical reasons: No Advance Directives: No Advance Directives Information Provided: Yes Nutrition Risks: No Nutritional Risk service: No Current occupational status: retired Meds Allergies Allergy/AdvReac Type Severity Reaction Status Date / Time latex AdvReac Unknown itchy Uncoded 02/28/23 21:55 since picc line has been put in Active Medications: Current Medications Acetaminophen (Acetaminophen 325 Mg Tablet) 650 mg PO Q6H PRN PRN Reason: Pain, Mild (Pain Scale 1-3) Last Admin: 03/04/23 18:10 Dose: 650 mg Ascorbic Acid (Ascorbic Acid 500 Mg Tablet) 500 mg PO DAILY [facility] Last Admin: 03/05/23 09:46 Dose: 500 mg Calcium Carbonate (Calcium Carbonate 500 Mg Tablet) 500 mg PO DAILY [facility] Last Admin: 03/05/23 09:46 Dose: 500 mg Dextrose (Dextrose 50 % 25 Gm/50 Ml Syringe) 25 gm IVPUSH Q15M PRN; Protocol PRN Reason: per Hypoglycemia Standing Ord. Docusate Sodium (Docusate Sodium 100 Mg Capsule) 100 mg PO DAILY PRN PRN Reason: Constipation Furosemide (Furosemide 20 Mg/2 Ml Vial) 20 mg IVPUSH DAILY [facility]; Protocol Last Admin: 03/05/23 09:46 Dose: 20 mg Glucose (Glucose Gel 15 Gm Gel..Gram.) 15 gm PO Q15M PRN; Protocol PRN Reason: per Hypoglycemia Standing Ord. Guaifenesin (Guaifenesin 200 Mg/10 Ml 10 Ml Liquid) 10 ml PO Q4H PRN PRN Reason: Cough Guaifenesin/Dextromethorphan (Guaifenesin Dm 100/10/5 Ml 5 Ml Syrup) 5 ml PO Q4H PRN PRN Reason: Cough Heparin Sodium (Porcine) (Heparin Sodium,Porcine 5,000 Unit/Ml Vial) 5,000 unit SUBCUT BID [facility] Last Admin: 03/05/23 09:48 Dose: 5,000 unit Piperacillin Sod/Tazobactam (Sod 2.25 gm/ Sodium Chloride) 50 mls @ 100 mls/hr IV Q6H [facility] Last Infusion: 03/05/23 10:00 Dose: Infused Doxycycline Hyclate 100 mg/ (Sodium Chloride) 250 mls @ 166.67 mls/hr IV Q12H [facility] Last Infusion: 03/05/23 08:03 Dose: Infused Insulin Human Lispro (Insulin Lispro 100 Unit/Ml 3 Ml Vial) 0 unit SUBCUT QIDACHS [facility]; Protocol Last Admin: 03/05/23 08:02 Dose: Not Given Metoprolol Succinate (Metoprolol Succinate Er 25 Mg Tab.Er.24h) 25 mg PO DAILY [facility]; Protocol Last Admin: 03/05/23 09:46 Dose: 25 mg Multivitamins/Vitamin C (Multivitamin Tablet) 1 tab PO DAILY [facility] Last Admin: 03/05/23 09:46 Dose: 1 tab Nifedipine (Nifedipine Er 90 Mg Tab.Er.24) 90 mg PO BEDTIME [facility] Last Admin: 03/04/23 23:28 Dose: 90 mg Ondansetron HCl (Ondansetron Hcl 4 Mg/2 Ml Vial) 4 mg IVPUSH Q8H PRN PRN Reason: Nausea and Vomiting Sodium Chloride (0.9 % Sodium Chloride Flush 3 Ml Syringe) 3 ml IVFLUSH QSHIFT [facility] Last Admin: 03/05/23 08:02 Dose: Not Given Vitamin D (Cholecalciferol (Vitamin D3) 25 Mcg Tablet) 25 mcg PO DAILY [facility] Last Admin: 03/05/23 09:46 Dose: 25 mcg Home Medications Medication Instructions Recorded Confirmed Last Taken Type ascorbic acid (vitamin C) 1,000 mg 500 mg PO DAILY 06/06/20 03/04/23 03/04/23 History tablet calcium carbonate 600 mg calcium 600 mg PO DAILY 06/06/20 03/04/23 03/04/23 History (1,500 mg) tablet (Calcium) cholecalciferol (vitamin D3) 25 25 mcg PO DAILY 06/06/20 03/04/23 03/04/23 History mcg (1,000 unit) capsule nifedipine 90 mg tablet,extended 90 mg PO BEDTIME 06/06/20 03/04/23 03/03/23 History release omega-3 fatty acids 1,000 mg 1,000 mg PO DAILY 06/06/20 03/04/23 03/04/23 History capsule (Fish Oil Concentrate) vitamin B complex (B 1 tab PO DAILY 06/06/20 03/04/23 03/04/23 History Complex-Vitamin B12 tablet) Physical Exam 2 Vital Signs: Vital Signs: Last Vital Signs Temp 100.8 F H 03/04/23 18:05 Pulse 92 03/05/23 08:00 Resp 18 03/05/23 08:00 BP 121/56 L 03/05/23 08:00 Pulse Ox 92 03/05/23 08:00 O2 Del Method Oxymask 03/05/23 08:00 O2 Flow Rate 13 03/05/23 07:51 FiO2 70 03/05/23 07:51 BMI result Body Mass Index 29.5 Const: General: cooperative, healthy appearing and comfortable O rientation/consciousness: oriented to person, oriented to place and oriented to time HEENT: Head: Yes normal to inspection Neck: Neck: Yes normal visual inspection Carotids: no bruits Chest: Chest palpation & inspection: normal inspection of the chest Resp: Effort & Inspection: normal respiratory effort and able to speak in complete sentences Auscultation: clear to auscultation bilaterally, no crackles, no rales, no rhonchi and no wheezes Cardio: Rate: regular rate Rhythm: regular rhythm Heart sounds: S1 normal heart sound present and S2 normal heart sound present Bruits: no carotid bruits Peripheral pulses: Peripheral pulses 2+ throughout GI: Inspection: Yes normal to inspection Skin: Other: Blister between the right great toe and 2nd toe. Surrounding cellulitis peer Wounds: no wounds Hair: normal Neuro: General: oriented to person, oriented to place and oriented to time Cranial nerves: Yes CN's II-XII intact bilaterally and Yes Normal hearing present Cognition (Neuro): normal cognition Motor exam (neuro): 5/5 motor strength present throughout Extrem: Other: venous exam: No significant superficial varicosities or spider telangiectasias, minimal edema General: No clubbing, No cyanosis and No edema Psych: Appearance: grossly normal Mental Status: mental status grossly normal Speech and movement: Normal speech and movement present Results Labs 03/05/23 04:32 03/05/23 04:32 Labs: Abnormal lab results 03/04/23 03/04/23 03/04/23 Range/Units 17:58 19:24 22:20 WBC (4.8-10.8) X10*3/uL RBC (4.60-5.80) X10*6/uL Hgb (14.0-18.0) g/dl Hct (42.0-52.0) % Immature Gran % (Auto) (0.0-0.4) % Neut % (Auto) (45-73) % Lymph % (Auto) (20-40) % [place] % (Auto) (2-11) % [place] # (Auto) (0.1-1.2) X10*3/uL Abs Immat Gran (auto) (0.00-0.03) X10*3/uL Absolute Neuts (auto) (2.0-8.3) x10*3/uL Chloride (96-108) mmol/L Carbon Dioxide (22-29) mmol/L BUN (9-16) mg/dL Creatinine (0.5-1.4) mg/dL POC Glucose 140 H 190 H (60-115) mg/dL Random Glucose (60-115) mg/dL B-Natriuretic Peptide 558 H (<100) pg/mL 03/05/23 03/05/23 03/05/23 Range/Units 04:32 07:50 13:23 WBC 17.7 H (4.8-10.8) X10*3/uL RBC 3.68 L (4.60-5.80) X10*6/uL Hgb 10.1 L (14.0-18.0) g/dl Hct 30.8 L (42.0-52.0) % Immature Gran % (Auto) 1.0 H (0.0-0.4) % Neut % (Auto) 79.2 H (45-73) % Lymph % (Auto) 6.5 L (20-40) % [place] % (Auto) 11.2 H (2-11) % [place] # (Auto) 2.0 H (0.1-1.2) X10*3/uL Abs Immat Gran (auto) 0.18 H (0.00-0.03) X10*3/uL Absolute Neuts (auto) 14.0 H (2.0-8.3) x10*3/uL Chloride 109 H (96-108) mmol/L Carbon Dioxide 18 L (22-29) mmol/L BUN 39 H (9-16) mg/dL Creatinine 2.51 H (0.5-1.4) mg/dL POC Glucose 145 H 188 H (60-115) mg/dL Random Glucose 146 H (60-115) mg/dL B-Natriuretic Peptide (<100) pg/mL Short CBC 03/05/23 Range/Units 04:32 WBC 17.7 H (4.8-10.8) X10*3/uL Hgb 10.1 L (14.0-18.0) g/dl Hct 30.8 L (42.0-52.0) % Plt Count 267 (160-400) X10*3/uL BMP 03/05/23 04:32 Sodium 138 Potassium 4.0 Chloride 109 H Carbon Dioxide 18 L BUN 39 H Creatinine 2.51 H Calcium 8.7 All other labs normal. Imaging Additional studies: MRI is concerning for osteomyelitis Arterial ultrasound demonstrates monophasic flow throughout and concern of inflow disease. Assessment and Plan (1) PAD (peripheral artery disease): Status: Acute Plan In short patient has significant peripheral vascular disease. Patient will require angiogram prior to any significant intervention. Will plan for evaluation once kidney function stabilizes and questionable pneumonia resolves. At the current time continue IV antibiotic therapy. Cardiology is following for mild congestive heart failure. We will follow this patient closely with you during his hospitalization. Thank you for allowing us to assist in his care. Time Spent With Patient Time: Total time managing care of this patient today ____ minutes. Procedures Date of Service Date of Service: 03/05/23
--- NOTE | 2023-03-05 13:54 | HO.PM.IMPN ---
Subjective Subjective Date of Service: 03/05/23 Interval History: f/u on foot abscess, sepsis, cellulitis and Pneumonia Physical Exam Vital Signs: Vital Signs: Last Vital Signs Temp 100.8 F H 03/04/23 18:05 Pulse 92 03/05/23 08:00 Resp 18 03/05/23 08:00 BP 121/56 L 03/05/23 08:00 Pulse Ox 92 03/05/23 08:00 O2 Del Method Oxymask 03/05/23 08:00 O2 Flow Rate 13 03/05/23 07:51 FiO2 70 03/05/23 07:51 BMI result Body Mass Index 29.5 Const: Other: Constitutional - Awake and Alert, No apparent distress Eyes - PERRLA, EOMI Cardiovascular - S1S2, RRR, IV/ systolic ejection murmur, 1+ pedal pulses bilaterally Respiratory - Normal lung expansion, Normal respiratory effort, No respiratory distress, CTA bilaterally Gastrointestinal - NT / ND; +BS; No rebound or guarding Extremities - no calf tenderness bilaterally, no swelling Musculoskeletal - Normal inspection, normal ROM Skin - Warm/Dry. 1cm shallow ulceration plantar aspect of left mid-forefoot with purulent drainage. There is also a bullae with what appears to be serosanguineous fluid between the 1st and 2nd left toes with erythema covering the distal half of the foot. See photos--essentially unchanged Neurological - Alert & oriented x3, diminished sensation left foot Psychological - Appropriate affect Objective Data Active Medications Acetaminophen (Acetaminophen 325 Mg Tablet) 650 mg PO Q6H PRN PRN Reason: Pain, Mild (Pain Scale 1-3) Last Admin: 03/04/23 18:10 Dose: 650 mg Documented By: ALEJANDRO Ascorbic Acid (Ascorbic Acid 500 Mg Tablet) 500 mg PO DAILY [facility] Last Admin: 03/05/23 09:46 Dose: 500 mg Documented By: BRANDON Calcium Carbonate (Calcium Carbonate 500 Mg Tablet) 500 mg PO DAILY [facility] Last Admin: 03/05/23 09:46 Dose: 500 mg Documented By: BRANDON Dextrose (Dextrose 50 % 25 Gm/50 Ml Syringe) 25 gm IVPUSH Q15M PRN; Protocol PRN Reason: per Hypoglycemia Standing Ord. Docusate Sodium (Docusate Sodium 100 Mg Capsule) 100 mg PO DAILY PRN PRN Reason: Constipation Furosemide (Furosemide 20 Mg/2 Ml Vial) 20 mg IVPUSH DAILY [facility]; Protocol Last Admin: 03/05/23 09:46 Dose: 20 mg Documented By: BRANDON Glucose (Glucose Gel 15 Gm Gel..Gram.) 15 gm PO Q15M PRN; Protocol PRN Reason: per Hypoglycemia Standing Ord. Guaifenesin (Guaifenesin 200 Mg/10 Ml 10 Ml Liquid) 10 ml PO Q4H PRN PRN Reason: Cough Guaifenesin/Dextromethorphan (Guaifenesin Dm 100/10/5 Ml 5 Ml Syrup) 5 ml PO Q4H PRN PRN Reason: Cough Heparin Sodium (Porcine) (Heparin Sodium,Porcine 5,000 Unit/Ml Vial) 5,000 unit SUBCUT BID [facility] Last Admin: 03/05/23 09:48 Dose: 5,000 unit Documented By: BRANDON Piperacillin Sod/Tazobactam (Sod 2.25 gm/ Sodium Chloride) 50 mls @ 100 mls/hr IV Q6H [facility] Last Infusion: 03/05/23 10:00 Dose: Infused Documented By: BRANDON Doxycycline Hyclate 100 mg/ (Sodium Chloride) 250 mls @ 166.67 mls/hr IV Q12H [facility] Last Infusion: 03/05/23 08:03 Dose: Infused Documented By: BRANDON Insulin Human Lispro (Insulin Lispro 100 Unit/Ml 3 Ml Vial) 0 unit SUBCUT QIDACHS [facility]; Protocol Last Admin: 03/05/23 08:02 Dose: Not Given Documented By: BRANDON Non-Admin Reason: No Insulin Coverage Metoprolol Succinate (Metoprolol Succinate Er 25 Mg Tab.Er.24h) 25 mg PO DAILY [facility]; Protocol Last Admin: 03/05/23 09:46 Dose: 25 mg Documented By: BRANDON Multivitamins/Vitamin C (Multivitamin Tablet) 1 tab PO DAILY [facility] Last Admin: 03/05/23 09:46 Dose: 1 tab Documented By: BRANDON Nifedipine (Nifedipine Er 90 Mg Tab.Er.24) 90 mg PO BEDTIME [facility] Last Admin: 03/04/23 23:28 Dose: 90 mg Documented By: MARKELL Ondansetron HCl (Ondansetron Hcl 4 Mg/2 Ml Vial) 4 mg IVPUSH Q8H PRN PRN Reason: Nausea and Vomiting Sodium Chloride (0.9 % Sodium Chloride Flush 3 Ml Syringe) 3 ml IVFLUSH QSHIFT [facility] Last Admin: 03/05/23 08:02 Dose: Not Given Documented By: BRANDON Non-Admin Reason: IV Running Vitamin D (Cholecalciferol (Vitamin D3) 25 Mcg Tablet) 25 mcg PO DAILY [facility] Last Admin: 03/05/23 09:46 Dose: 25 mcg Documented By: BRANDON Labs 03/05/23 04:32 03/05/23 04:32 Labs: Laboratory Results - last 24 hr 03/04/23 03/04/23 03/04/23 17:58 19:24 22:20 MCV MCH MCHC RDW Plt Count MPV Immature Gran % (Auto) Neut % (Auto) Lymph % (Auto) [place] % (Auto) Eos % (Auto) Baso % (Auto) Lymph # (Auto) [place] # (Auto) Eos # (Auto) Baso # (Auto) Abs Immat Gran (auto) Absolute Neuts (auto) Absolute Nucleated RBC Nucleated RBC % (auto) Smear Tech's Comments Anion Gap Estim Creat Clear Calc Estimated GFR POC Glucose 140 H 190 H Random Glucose Calcium B-Natriuretic Peptide 558 H 03/05/23 03/05/23 03/05/23 04:32 07:50 13:23 MCV 83.7 MCH 27.4 MCHC 32.8 RDW 14.4 Plt Count 267 MPV 10.2 Immature Gran % (Auto) 1.0 H Neut % (Auto) 79.2 H Lymph % (Auto) 6.5 L [place] % (Auto) 11.2 H Eos % (Auto) 1.4 Baso % (Auto) 0.7 Lymph # (Auto) 1.2 [place] # (Auto) 2.0 H Eos # (Auto) 0.3 Baso # (Auto) 0.1 Abs Immat Gran (auto) 0.18 H Absolute Neuts (auto) 14.0 H Absolute Nucleated RBC 0.000 Nucleated RBC % (auto) 0.0 Smear Tech's Comments VERIFIED Anion Gap 15 Estim Creat Clear Calc 30.0 Estimated GFR 25 POC Glucose 145 H 188 H Random Glucose 146 H Calcium 8.7 B-Natriuretic Peptide Microbiology Microbiology Results: Microbiology 03/04/23 11:15 Blood Culture - Preliminary Blood - Venous No growth after 24 hours. 03/04/23 10:35 Blood Culture - Preliminary Blood - Venous No growth after 24 hours. Assessment and Plan (1) Pneumonia: Status: Acute (2) Cellulitis: Status: Acute Plan 82-year-old male with history of hypertension, [id number] type 2 diabetes, CKD stage 3, history SVT, aortic stenosis, history osteomyelitis R great toe, and diabetic polyneuropathy admitted for diabetic foot infection with sepsis and question of osteomyelitis. #Infected stage 2 foot ulcer with sepsis with abscess, MRI shows abscess but no osteomylitis, Surgery to see for possible I and D, Presently on IV Doxy and Ceftriaxone, DC Doxy and add renally dose Vanco, ID consult pending. #Pneumonia --same Abx as above #Non-insulin dependent type 2 diabetes- with hyperglycemia -last A1c 6.7% -POC glucose -diabetic diet -humalog on sliding scale #HTN -bp reasonably controlled -continue metoprolol, nifedipine #History SVT -continue bb, ccb #CKD stage 3 -renal function baseline DVT prophylaxis- heparin Full code Pt requires inpatient stay at least 2 midnights for management of infected stage II diabetic foot ulcer with sepsis and with possible osteomyelitis requiring IV antibiotics requiring expert consultation, possible amputation vs shelter antibiotics. Time Spent With Patient Time: Total time managing care of this patient today ____ minutes. Quality Stroke Does the patient have a stroke diagnosis?: No VTE Prior VTE?: No VTE Risk Level:: Medical - moderate - high VTE Device Contraindication: Treatment Not Indicated VTE Drug Contraindication: N/A - Med Ordered
[2023-03-05] MEDS: Insulin Lispro 100 UNIT/ML 3 ML VIAL SUBCUT ×2 (13:57→17:03)
--- NOTE | 2023-03-05 14:57 | PC.NURSE ---
total output since administration of IV push lasiks 150mls, provider aware. Report given to accepting unit
[2023-03-05] MEDS: vancomycin HCL 750 MG in 0.9 % Sodium Chloride 250 ML 265 MG IV (15:40)
[2023-03-05 16:01] LABS: Glucose, Whole Blood 256 mg/dL (60-115)
--- NOTE | 2023-03-05 18:02 | HO.WOUND ---
Wound Consult: Initial 82yr old [place] [facility] [place] 12:[place] for Left Plantar foot Infection- See progress notes and H&P for detailed history. 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 Pt states he has had plantar wound on left heel on and off since 2016. Pt states he was recommended to wear off loading boot but refused and does not wear - pt unable to recall why he does not wear other than he feels it impacts his mobility. Pt educated on off loading pressure staying off of foot in order to heal wound - he reports understanding. Pt reports most recent care at home was with topical over the counter antibiotic ointment. Left Plantar Foot Etiology: Diabetic Foot Wound Measurements: 1cm x 1cm x 1.5cm Wound Bed: Difficult to visualize Drainage / Odor: Malodor noted with serosang creamy purulent drainage noted Edges: ?unattached Joanne wound: +DP, ?Fluctuance noted, immediate periwound is fluctuant at the white yellow pigmentation see photo, red erythema noted in the periwound - no induration, There is a blood filled bulla noted to start between the first and second toes and extend through to the dorsal side of the foot - see photo. Taunt and fluctuant bulla remains intact at this time. Pain: Denies Pain - per reports neuropathy Goals of Treatment: ?Off Load Pressure and pack wound bed with Iodoform strip packing. At time of discharge recommend continued follow up with outpatient Podiatry for wound care treatment and off loading recommendations. Wound Care Followup: 1 - 2 days. TT to provider informing them wound care note has topical recommendations in place. Recommendations: 1. Left Plantar Foot - Elevate Left Foot off of bed surface with use of pillow. Cleanse and Irrigate with NS. Apply Barrier wipes to periwound and blister, allow to dry. Pack plantar wound with Iodoform strip packing, be sure to leave a wick for easy removal. Do not pack tight, pack light and loosely. Cover with dry gauze, abd pad and wrap with gauze. Cover Blister with single layer of Xeroform. Change Daily. 2. Turn and Reposition every 2 hours and as needed for patient comfort. 3. Off Load all bony prominences with use of pillows. 4. Provide adequate and supplemental nutrition. 5. Follow Physician orders for glucose control.
[2023-03-05 19:40] LABS: Glucose, Whole Blood 169 mg/dL (60-115)
[2023-03-05] MEDS: NIFEdipine ER 90 MG TAB.ER.24 PO (19:45)
[2023-03-06 00:33] VITALS: BP 134/59; PULSE 88; RESP 18; TEMP 36.9; O2SAT 91
[2023-03-06 07:32] LABS: Estimated Glomerular Filt Rate 22
[2023-03-06 07:41] LABS: Glucose, Whole Blood 146 mg/dL (60-115)
[2023-03-06 07:44] VITALS: BP 121/57; PULSE 80; RESP 18; TEMP 36.9; O2SAT 95
[2023-03-06] MEDS: Heparin Sodium,Porcine 5,000 UNIT/ML VIAL 5000 UNIT SUBCUT ×2 (08:27→21:04)
[2023-03-06] MEDS: Multivitamin TABLET 1 TAB PO (08:27)
[2023-03-06] MEDS: Metoprolol Succinate ER 25 MG TAB.ER.24H PO (08:27)
[2023-03-06] MEDS: Cholecalciferol (Vitamin D3) 25 MCG TABLET PO (08:27)
[2023-03-06] MEDS: Ascorbic Acid 500 MG TABLET PO (08:30)
--- NOTE | 2023-03-06 08:42 | MHC.CM.PN ---
LATE ENTRY NOTE FOR 03/05/23, IMM DELIVERED TO BEDSIDE 03/05/13, PT REPORTS HE LIVES W/ WHO HAD BRAIN SURGERY YESTERDAY 03/04 AT [facility], PT REPORTS HE IS INDEPENDENT W/AMBULATION AND REPORTS HIS [employer] DME IS DIABET[employer] SUPPLIES, PT REPORTS HE CHECKS HIS BS EOD, PT DENIES HOME SERVICES, PT MAY NEED IV ABX FOR L FOOT ABSCESS, PT HAS HX OF OSTEO HOWEVER FOOT MRI NEG FOR OSTEO, PT HAD [facility] AND [facility] IN PAST AND THEY ARE PREFERRED HOWEVER DT PT'S INSURANCE PLAN [facility] UNABLE TO ACCOMMODATE, REFERRAL EXPANDED [facility] TO OFFER FOR WOUND CARE VS IV ABX/WOUND CARE. PT VERIFIES PCP IS JUNIOR HENRY, COVID VACC X3 AND PT'S AMY IS HCP [phone] PT/FAMILY REQUESTING INFO ON ASSISTANCE FOR PT AT HOME, [facility] PROVIDED AND TASK SENT TO [facility] ON 03/06/23.
--- NOTE | 2023-03-06 09:15 | P.PNVS_ITS ---
Subjective Subjective Date of Service: 03/06/23 Patient reports: no new complaints and feels better Interval history: Pleasant 82-year-old gentleman presents for follow-up regarding nonhealing left foot ulcer. The area between the 1st and 2nd toe webspace has opened up. Draining fluid. Appears to be doing relatively better. Now for routine vascular follow-up. Physical Exam Vital Signs: Vital Signs: Last Vital Signs Temp 98.5 F 03/06/23 07:44 Pulse 80 03/06/23 07:44 Resp 18 03/06/23 07:44 BP 121/57 L 03/06/23 07:44 Pulse Ox 95 03/06/23 07:44 O2 Del Method Room Air 03/06/23 07:44 O2 Flow Rate 6 03/06/23 00:33 FiO2 70 03/05/23 07:51 BMI result Body Mass Index 29.5 Const: General: cooperative, healthy appearing and comfortable Orientation/consciousness: oriented to person, oriented to place and oriented to time HEENT: Head: Yes normal to inspection Neck: Neck: Yes normal visual inspection Carotids: no bruits Chest: Chest palpation & inspection: normal inspection of the chest Resp: Effort & Inspection: normal respiratory effort and able to speak in complete sentences Auscultation: clear to auscultation bilaterally, no crackles, no rales, no rhonchi and no wheezes Cardio: Rate: regular rate Rhythm: regular rhythm Heart sounds: S1 normal heart sound present and S2 normal heart sound present Bruits: no carotid bruits Peripheral pulses: Peripheral pulses 2+ throughout GI: Inspection: Yes normal to inspection Skin: Other: Open webspace between the 1st and 2nd toe with purulent material penetrating all the way down to bone. Open. Plantar aspect ulcer penetrating deep as well. Wounds: no wounds Hair: normal Neuro: General: oriented to person, oriented to place and oriented to time Cranial nerves: Yes CN's II-XII intact bilaterally and Yes Normal hearing present Cognition (Neuro): normal cognition Motor exam (neuro): 5/5 motor strength present throughout Extrem: Other: venous exam: No significant superficial varicosities or spider telangiect asias, minimal edema General: No clubbing, No cyanosis and No edema Psych: Appearance: grossly normal Mental Status: mental status grossly normal Speech and movement: Normal speech and movement present Progress Note: A&P Assessment and plan (1) PAD (peripheral artery disease): Status: Acute Assessment and Plan: Significant lower extremity ulcerations. Patient was seen with the wound care nurse and wound care orders were given. The patient is at high risk for transmetatarsal amputation. He was informed of this. Would like him to receive antibiotics and stabilized through the weekend. Also will have Nephrology evaluate his kidney function. He will require endovascular intervention prior to any sort of surgery. We will continue to monitor his status with you. Thank you for allowing us to assist in his care. Time Spent With Patient Time: Total time managing care of this patient today ____ minutes. Procedures Date of Service Date of Service: 03/06/23 Quality Stroke Does the patient have a stroke diagnosis?: No VTE Prior VTE?: No VTE Risk Level:: Medical - moderate - high VTE Device Contraindication: Treatment Not Indicated VTE Drug Contraindication: N/A - Med Ordered
--- NOTE | 2023-03-06 09:25 | MHC.CM.PN ---
EMR REVIEWED, CM MET W/PT AND VASCULAR, PLAN FOR PT TO HAVE NEPHROLOGY CONSULT TO CLEAR FOR ANGIOGRAM, NO PLAN FOR D/C OVER W/E, [facility] AND [facility] FOLLOWING AND UPDATED VIA [facility], ANGIO LIKELY EARLY NEXT WEEK, CM WILL CONT TO FOLLOW D/C NEEDS. CM MET W/PT TO DISCUSS DISPO AND REQUEST FOR HOME SERVICES, PT PROVIDED W/CM BUSINESS CARD AND GIVES VERBAL CONSENT FOR CM TO SPEAK W/PT'S 2 SONS.
--- NOTE | 2023-03-06 10:24 | HO.WOUND ---
Wound Consult: Follow Up 82yr old male admitted to [facility] [place] on 03/04/23 12:31 for Left Plantar foot Infection- See progress notes and H&P for detailed history. ?Arrival to bed side Dr. Jewell from Vascular Surgery Team was discussing future care and options with pt. We discussed topical recommendations for Alginate AG between toes that Bulla has now opened and revealed a deep full thickness wound and to pack plantar wound with Iodoform for easy and safe removal. Left Plantar Foot Etiology: Diabetic Foot Wound Measurements: 0.6cm x 0.6cm x 1.2cm x max depth of undermining 1cm from 6-12 o'clock Wound Bed: Difficult to visualize Drainage / Odor: Malodor noted with serosang creamy purulent drainage noted Edges: ?unattached Joanne wound: unable to palpate pedal pulses today, foot remains warm and red pink erythema, ?Fluctuance noted, immediate periwound is fluctuant at the white yellow pigmentation see photo, red erythema noted in the periwound - no induration. Pain: Denies Pain - per reports neuropathy Goals of Treatment: ?Off Load Pressure and pack wound bed with Iodoform strip packing. At time of discharge recommend continued follow up with outpatient Podiatry and Vascular Surgery for wound care treatment and off loading recommendations. Left Foot between 1st & 2nd Toes Etiology: Diabetic Foot Wound with Arterial Component Measurements: 2.5cm x 0.5cm x 2cm Wound Bed: Necrotic fibrinous yellow clark slough Drainage / Odor: Malodor noted with creamy purulent clark drainage noted Edges: ?unattached Joanne wound:? red erythema and purple pigmentation and unroofed bulla site noted in the periwound - Mild induration noted Pain: Denies Pain - per reports neuropathy Goals of Treatment: ?Per discussion with Dr. Jewell pack wound bed with Alginate AG. (Durafiber AG) Wound Care Followup: ?3-5 days. Verbal order from Dr. Jewell to place topical recommendations discussed at bedside. Recommendations: 1. Left Foot - Elevate Left Foot off of bed surface with use of pillow. Cleanse and Irrigate with NS. ?Apply Barrier wipes to periwound, allow to dry. ?Pack plantar wound with Iodoform strip packing, be sure to leave a wick for easy removal. ?Do not pack tight, pack light and loosely. ?Pack wound between 1 & 2 toes with Cut to size Durafiber AG (Marmolejo Alginate). Cover with dry gauze, abd pad and wrap with gauze. Change Daily. 2. Turn and Reposition every 2 hours and as needed for patient comfort. 3. Off Load all bony prominences with use of pillows. 4. Provide adequate and supplemental nutrition. 5. Follow Physician orders for glucose control.?
--- NOTE | 2023-03-06 10:53 | HO.PM.IMPN ---
Subjective Subjective Date of Service: 03/06/23 Interval History: f/u on foot abscess, sepsis, cellulitis and Pneumonia O2 sat is better, off O2 Physical Exam Vital Signs: Vital Signs: Last Vital Signs Temp 98.5 F 03/06/23 07:44 Pulse 80 03/06/23 07:44 Resp 18 03/06/23 07:44 BP 121/57 L 03/06/23 07:44 Pulse Ox 95 03/06/23 07:44 O2 Del Method Room Air 03/06/23 07:44 O2 Flow Rate 6 03/06/23 00:33 FiO2 70 03/05/23 07:51 BMI result Body Mass Index 29.5 Const: Other: Constitutional - Awake and Alert, No apparent distress Eyes - PERRLA, EOMI Cardiovascular - S1S2, RRR, IV/ systolic ejection murmur, 1+ pedal pulses bilaterally Respiratory - Normal lung expansion, Normal respiratory effort, No respiratory distress, CTA bilaterally Gastrointestinal - NT / ND; +BS; No rebound or guarding Extremities - no calf tenderness bilaterally, no swelling Musculoskeletal - Normal inspection, normal ROM Skin -03/06 Neurological - Alert & oriented x3, diminished sensation left foot Psychological - Appropriate affect Objective Data Active Medications Acetaminophen (Acetaminophen 325 Mg Tablet) 650 mg PO Q6H PRN PRN Reason: Pain, Mild (Pain Scale 1-3) Last Admin: 03/04/23 18:10 Dose: 650 mg Documented By: ALEJANDRO Ascorbic Acid (Ascorbic Acid 500 Mg Tablet) 500 mg PO DAILY [facility] Last Admin: 03/06/23 08:30 Dose: 500 mg Documented By: REHANA Calcium Carbonate (Calcium Carbonate 500 Mg Tablet) 500 mg PO DAILY [facility] Last Admin: 03/06/23 08:30 Dose: Not Given Documented By: REHANA Non-Admin Reason: Patient Refused Dextrose (Dextrose 50 % 25 Gm/50 Ml Syringe) 25 gm IVPUSH Q15M PRN; Protocol PRN Reason: per Hypoglycemia Standing Ord. Docusate Sodium (Docusate Sodium 100 Mg Capsule) 100 mg PO DAILY PRN PRN Reason: Constipation Furosemide (Furosemide 20 Mg/2 Ml Vial) 20 mg IVPUSH BID@0900,1800 [facility]; Protocol Last Admin: 03/06/23 08:36 Dose: Not Given Documented By: REHANA Non-Admin Reason: Held by MD Glucose (Glucose Gel 15 Gm Gel..Gram.) 15 gm PO Q15M PRN; Protocol PRN Reason: per Hypoglycemia Standing Ord. Guaifenesin (Guaifenesin 200 Mg/10 Ml 10 Ml Liquid) 10 ml PO Q4H PRN PRN Reason: Cough Guaifenesin/Dextromethorphan (Guaifenesin Dm 100/10/5 Ml 5 Ml Syrup) 5 ml PO Q4H PRN PRN Reason: Cough Heparin Sodium (Porcine) (Heparin Sodium,Porcine 5,000 Unit/Ml Vial) 5,000 unit SUBCUT BID [facility] Last Admin: 03/06/23 08:27 Dose: 5,000 unit Documented By: REAHNA Piperacillin Sod/Tazobactam (Sod 2.25 gm/ Sodium Chloride) 50 mls @ 100 mls/hr IV Q6H [facility] Last Infusion: 03/06/23 07:25 Dose: Infused Documented By: REHANA Vancomycin HCl 750 mg/ Sodium (Chloride) 265 mls @ 265 mls/hr IV Q24H [facility] Last Infusion: 03/05/23 17:06 Dose: Infused Documented By: MARIA ELENA Insulin Human Lispro (Insulin Lispro 100 Unit/Ml 3 Ml Vial) 0 unit SUBCUT QIDACHS [facility]; Protocol Last Admin: 03/06/23 07:55 Dose: Not Given Documented By: REHANA Non-Admin Reason: No Insulin Coverage Metoprolol Succinate (Metoprolol Succinate Er 25 Mg Tab.Er.24h) 25 mg PO DAILY [facility]; Protocol Last Admin: 03/06/23 08:27 Dose: 25 mg Documented By: REHANA Multivitamins/Vitamin C (Multivitamin Tablet) 1 tab PO DAILY [facility] Last Admin: 03/06/23 08:27 Dose: 1 tab Documented By: REHANA Nifedipine (Nifedipine Er 90 Mg Tab.Er.24) 90 mg PO BEDTIME [facility] Last Admin: 03/05/23 19:45 Dose: 90 mg Documented By: ABIGAIL Ondansetron HCl (Ondansetron Hcl 4 Mg/2 Ml Vial) 4 mg IVPUSH Q8H PRN PRN Reason: Nausea and Vomiting Pharmacy Consult (Consult Rx Vancomycin Dosing) 1 each MISCELLANE DAILY PRN PRN Reason: Consult order Sodium Chloride (0.9 % Sodium Chloride Flush 3 Ml Syringe) 3 ml IVFLUSH QSHIFT [facility] Last Admin: 03/06/23 08:27 Dose: 3 ml Documented By: REHANA Vitamin D (Cholecalciferol (Vitamin D3) 25 Mcg Tablet) 25 mcg PO DAILY [facility] Last Admin: 03/06/23 08:27 Dose: 25 mcg Documented By: REHANA Labs 03/05/23 04:32 03/06/23 06:31 Labs: Laboratory Results - last 24 hr 03/05/23 03/05/23 03/05/23 13: 15:56 19:35 Estim Creat Clear Calc Estimated GFR POC Glucose 188 H 256 H 169 H 03/06/23 03/06/23 06:31 07:38 Estim Creat Clear Calc 27.0 Estimated GFR 22 POC Glucose 146 H Microbiology Microbiology Results: Microbiology 03/04/23 11:15 Blood Culture - Preliminary Blood - Venous No growth after 24 hours. 03/04/23 10:35 Blood Culture - Preliminary Blood - Venous No growth after 24 hours. Assessment and Plan (1) Pneumonia: Status: Acute (2) Cellulitis: Status: Acute Plan 82-year-old male with history of hypertension, [id number] type 2 diabetes, CKD stage 3, history SVT, aortic stenosis, history osteomyelitis R great toe, and diabetic polyneuropathy admitted for diabetic foot infection with sepsis and question of osteomyelitis. #Infected stage 2 foot ulcer with sepsis with abscess, MRI shows abscess but no osteomylitis, Surgery did I and D on 03/05, persistent purulent discharge. Continue Zosyn+Vanco, monitor renal function, ID will follo, cultures so far negative. #PAD--will need angiogram by Vascular #Pneumonia --same Abx as above, doing well off O2 #Non-insulin dependent type 2 diabetes- with hyperglycemia -last A1c 6.7% -POC glucose -diabetic diet -humalog on sliding scale #HTN -bp reasonably controlled -continue metoprolol, nifedipine #History SVT -continue bb, ccb #CKD stage 3 -renal function baseline, nephrology following DVT prophylaxis- heparin Full code Pt requires inpatient stay at least 2 midnights for management of infected stage II diabetic foot ulcer with sepsis and with possible osteomyelitis requiring IV antibiotics requiring expert consultation, 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 Time Spent With Patient Time: Total time managing care of this patient today ____ minutes. Quality Stroke Does the patient have a stroke diagnosis?: No VTE Prior VTE?: No VTE Risk Level:: Medical - moderate - high VTE Device Contraindication: Treatment Not Indicated VTE Drug Contraindication: N/A - Med Ordered
--- NOTE | 2023-03-06 11:29 | PM.PNCARD ---
Subjective Subjective Date of Service: 03/06/23 Interval history: Seen and examined at bedside. Diabetic foot with infection. Advanced kidney disease. Congestive heart failure-improving. Physical Exam Vital Signs: Last Vital Signs Temp 98.5 F 03/06/23 07:44 Pulse 80 03/06/23 07:44 Resp 18 03/06/23 07:44 BP 121/57 L 03/06/23 07:44 Pulse Ox 95 03/06/23 07:44 O2 Del Method Room Air 03/06/23 07:44 O2 Flow Rate 6 03/06/23 00:33 FiO2 70 03/05/23 07:51 BMI result Body Mass Index 29.5 GENERAL APPEARANCE: in no acute distress, pleasant. NECK: no carotid bruit, now jugular venous distention. SKIN: no suspicious lesions, warm and dry. HEART: Ejection systolic murmur aortic area with preserved 2nd heart sound, regular rate and rhythm. LUNGS: Few crackles at bases. ABDOMEN: soft, nontender. EXTREMITIES: No significant edema. PERIPHERAL PULSES: equal. NEUROLOGIC: No gross deficits, AAO X 3 Objective Labs and Meds 03/05/23 04:32 03/06/23 06:31 Lab results: Laboratory Results - last 24 hr 03/05/23 03/05/23 03/05/23 13:23 15:56 19:35 Creatinine Estim Creat Clear Calc Estimated GFR POC Glucose 188 H 256 H 169 H 03/06/23 03/06/23 06:31 07:38 Creatinine 2.78 H Estim Creat Clear Calc 27.0 Estimated GFR 22 POC Glucose 146 H Progress Note: A&P Assessment and plan (1) CHF exacerbation: Status: Acute Plan [age] gentleman with diabetic foot infection who is presenting with left foot abscess, pneumonia and congestive heart failure. Diuresed and is improving. Stop the IV diuretics. 40 mg p.o. Lasix from tomorrow morning. He has peripheral vascular disease and being seen by vascular surgery for potential angiogram with intervention. Renal following. He has moderate aortic valve stenosis. Overall from cardiovascular point of view he is improving and is stable. Thank you for allowing me to participate in the care of your patient. Please feel free to contact me if you have any questions. Time Spent With Patient Time: Total time managing care of this patient today ____ minutes. Progress Note: Quality Stroke Does the patient have a stroke diagnosis?: No Procedures Date of Service Date of Service: 03/06/23
--- NOTE | 2023-03-06 11:43 | CONS_ITS ---
DATE OF SERVICE: 03/06/2023 REASON FOR CONSULTATION: I was asked to see the patient to assist in evaluation and management of patient's advanced chronic kidney disease, reflected by creatinine that has been in the 2-2.5 range over the past 2 years, now admitted to the hospital with diabetic foot infection and concern for advanced peripheral vascular disease to that left leg, interfering with the ability that diabetic foot infection to improve. HISTORY OF PRESENT ILLNESS: In summary, the patient is an 82-year-old gentleman, well known to me, with advanced chronic stage 4 kidney disease in the backdrop of hypertension, diabetes, SVT, aortic stenosis, history of osteo of the right great toe, neuropathy, who has a left foot infection for which he is being followed by Podiatry and getting outpatient management of, who now presents with increasing drainage from the foot and swelling and redness. There is a picture in the chart that shows redness and a blister as well. The patient has been seen by Vascular Surgery for concern about PAD, compromising circulation and preventing the wound from getting better. There is now discussions about doing a left lower extremity angiogram and the risk of the IV contrast due to his advanced kidney disease, hence the current consultation. Hospital course included IV fluids and he got bit short of breath. Concern for pulmonary edema and now he has a dose of Lasix, and he is feeling better. PAST MEDICAL HISTORY: As mentioned above. MEDICATIONS: His medications on admission are noted in the admitting notes. Current medications on the JUL. ALLERGIES: HE HAS NO KNOWN DRUG ALLERGIES, EXCEPT FOR LATEX. SOCIAL HISTORY: He is a nonsmoker, nondrinker. No illicit drug use. FAMILY HISTORY: Noncontributory. REVIEW OF SYSTEMS: As noted above. His is at [facility], just had brain surgery and apparently has done well and may be coming home soon per patient. PHYSICAL EXAMINATION: VITAL SIGNS: Blood pressure of 120/60 with a heart rate in the 70s. HEAD: Atraumatic and normocephalic. NECK: Supple. NOSE: Mucous membranes are moist. LUNGS: Breath sounds bilaterally, decreased at the bases. CARDIAC: Regular rate and rhythm without rub. ABDOMEN: Soft, nontender. Good bowel sounds. No CVA tenderness. EXTREMITIES: Shows left leg with a big dressing on it. LABORATORY DATA: Labs from today show creatinine 2.78. Yesterday, BUN and creatinine 39 and 2.5. Sodium 138, potassium 4, chloride 109, bicarb 18. Blood sugar has been 150-200. Calcium 8.7. Urine studies showed from December 2+ protein and urine albumin creatinine ratio of 684 mg of albumin per gram of creatinine. Hemoglobin 10.1 and hematocrit 30.8, white blood cell count 17.7. He had a foot MRI. IMPRESSION: An 82-year-old diabetic, hypertensive patient with advanced stage 4 chronic kidney disease, now with a nonhealing diabetic foot infection and a concern for progressive peripheral artery disease and needs lower extremity angiogram to improve circulation and hopefully healing. 1. Advanced chronic kidney disease. As mentioned, his creatinine typically has been in the 2 to 2.5 range, a bit worse today at 2.78. 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 Renovascular disease would be a potential contributing factor as well. 2. Risk of acute kidney injury with angiogram and IV contrast exposure if he undergoes this procedure. There is certainly a risk of acute kidney injury to the point of needing dialysis if he goes for a lower extremity angiogram. When I put it into the Andres equation, it roughly states that he has a 10% chance of acute kidney injury to the point of requiring dialysis. 3. Shortness of breath due to IV fluids and pulmonary edema, seems improved with Lasix. 4. Diabetes. 5. Peripheral artery disease. 6. Diabetic foot infection. RECOMMENDATIONS: At this time include continue holding IV fluids and using diuretics as needed to avoid decompensated pulmonary edema. Continue his routine medications. Avoid nephrotoxins such as NSAIDs. In regard to going ahead with lower extremity angiogram, I think it is okay to go ahead with this, one could try and use CO2 as opposed to standard radiopaque IV contrast to limit the IV contrast exposure. I think that the foot is probably in jeopardy and improving circulation is a very important and I had a candid discussion with him regarding the risk to his kidneys. I will pass this message along to Dr. Jewell, the vascular surgeon, but in my assessment, if indeed, PAD is playing a significant role and places his leg at jeopardy, I would allow the risk for AYAN from the IV contrast and go ahead with the procedure. We will follow the patient closely with the team. MD PAUL Snyder/TAMMIE / [id number]
[2023-03-06 11:50] LABS: Glucose, Whole Blood 186 mg/dL (60-115)
[2023-03-06] MEDS: Insulin Lispro 100 UNIT/ML 3 ML VIAL SUBCUT ×2 (12:03→21:03)
[2023-03-06 15:18] VITALS: BP 132/61; PULSE 74; RESP 20; TEMP 36.7; O2SAT 95
[2023-03-06] MEDS: Acetaminophen 325 MG TABLET 650 MG PO (15:39)
[2023-03-06] MEDS: vancomycin HCL 750 MG in 0.9 % Sodium Chloride 250 ML 265 MG IV (15:39)
[2023-03-06 16:12] LABS: Glucose, Whole Blood 150 mg/dL (60-115)
[2023-03-06 19:10] VITALS: BP 124/61; PULSE 75; RESP 20; TEMP 36.1; O2SAT 95
[2023-03-06 20:04] LABS: Glucose, Whole Blood 196 mg/dL (60-115)
[2023-03-06] MEDS: NIFEdipine ER 90 MG TAB.ER.24 PO (21:48)
[2023-03-06 23:17] VITALS: RESP 20
--- NOTE | 2023-03-07 | ECG_ITS ---
Test Reason : Tachycardia Blood Pressure : / mmHG Vent. Rate : 124 BPM Atrial Rate : 000 BPM P-R Int : 000 ms QRS Dur : 094 ms QT Int : 326 ms P-R-T Axes : 000 005 126 degrees QTc Int : 468 ms Accelerated Junctional rhythm with retrograde conduction Nonspecific ST and T wave abnormality Abnormal ECG When compared with ECG of 24-MAY-2018 07:55, Junctional rhythm has replaced Sinus rhythm ST now depressed in Lateral leads Referred By: Issa Degroot Electronically Signed By:JAE CHAO MD
--- NOTE | 2023-03-07 02:19 | PC.NURSE ---
acquired care at 0000. Pt is in bed sleeping. Unable to do full assessment. Pt is easily arousable.
[2023-03-07 03:06] VITALS: BP 122/58; PULSE 73; RESP 20; TEMP 36.7; O2SAT 94
[2023-03-07 07:34] LABS: Creatinine Clr Calc Pharmacy 28.7; Estimated Glomerular Filt Rate 24
[2023-03-07 07:40] VITALS: BP 146/67; PULSE 86; RESP 20; TEMP 36.4; O2SAT 93
[2023-03-07 08:14] LABS: Glucose, Whole Blood 138 mg/dL (60-115)
[2023-03-07] MEDS: Heparin Sodium,Porcine 5,000 UNIT/ML VIAL 5000 UNIT SUBCUT ×2 (09:25→21:54)
[2023-03-07] MEDS: Ascorbic Acid 500 MG TABLET PO (09:27)
[2023-03-07] MEDS: Multivitamin TABLET 1 TAB PO (09:27)
[2023-03-07] MEDS: Metoprolol Succinate ER 25 MG TAB.ER.24H PO (09:28)
[2023-03-07] MEDS: Cholecalciferol (Vitamin D3) 25 MCG TABLET PO (09:28)
[2023-03-07] MEDS: Furosemide 40 MG TABLET PO (09:30)
--- NOTE | 2023-03-07 09:35 | P.PNIM_ITS ---
Subjective Subjective Date of Service: 03/07/23 Interval History: Doing better, off o2, pain in the foot is controlled Physical Exam 2 Vital Signs: Vital Signs: Last Vital Signs Temp 97.6 F 03/07/23 07:40 Pulse 86 03/07/23 07:40 Resp 20 03/07/23 07:40 BP 146/67 H 03/07/23 07:40 Pulse Ox 93 03/07/23 07:40 O2 Del Method Room Air 03/07/23 07:40 O2 Flow Rate 6 03/06/23 00:33 FiO2 70 03/05/23 07:51 BMI result Body Mass Index 29.5 Const: Other: Constitutional - Awake and Alert, No apparent distress Eyes - PERRLA, EOMI Cardiovascular - S1S2, RRR, IV/ systolic ejection murmur, 1+ pedal pulses bilaterally Respiratory - Normal lung expansion, Normal respiratory effort, No respiratory distress, CTA bilaterally Gastrointestinal - NT / ND; +BS; No rebound or guarding Extremities - no calf tenderness bilaterally, no swelling Musculoskeletal - Normal inspection, normal ROM Skin -see pic from yesterd, essentially no change Neurological - Alert & oriented x3, diminished sensation left foot Psychological - Appropriate affect Objective Data Active Medications Acetaminophen (Acetaminophen 325 Mg Tablet) 650 mg PO Q6H PRN PRN Reason: Pain, Mild (Pain Scale 1-3) Last Admin: 03/06/23 15:39 Dose: 650 mg Documented By: REHANA Ascorbic Acid (Ascorbic Acid 500 Mg Tablet) 500 mg PO DAILY [facility] Last Admin: 03/07/23 09:27 Dose: 500 mg Documented By: CHAPARRITA Calcium Carbonate (Calcium Carbonate 500 Mg Tablet) 500 mg PO DAILY [facility] Last Admin: 03/07/23 09:29 Dose: Not Given Documented By: CHAPARRITA Non-Admin Reason: Patient Refused Dextrose (Dextrose 50 % 25 Gm/50 Ml Syringe) 25 gm IVPUSH Q15M PRN; Protocol PRN Reason: per Hypoglycemia Standing Ord. Docusate Sodium (Docusate Sodium 100 Mg Capsule) 100 mg PO DAILY PRN PRN Reason: Constipation Furosemide (Furosemide 40 Mg Tablet) 40 mg PO DAILY [facility]; Protocol Last Admin: 03/07/23 09:30 Dose: 40 mg Documented By: CHAPARRITA Glucose (Glucose Gel 15 Gm Gel..Gram.) 15 gm PO Q15M PRN; Protocol PRN Reason: per Hypoglycemia Standing Ord. Guaifenesin (Guaifenesin 200 Mg/10 Ml 10 Ml Liquid) 10 ml PO Q4H PRN PRN Reason: Cough Guaifenesin/Dextromethorphan (Guaifenesin Dm 100/10/5 Ml 5 Ml Syrup) 5 ml PO Q4H PRN PRN Reason: Cough Heparin Sodium (Porcine) (Heparin Sodium,Porcine 5,000 Unit/Ml Vial) 5,000 unit SUBCUT BID [facility] Last Admin: 03/07/23 09:25 Dose: 5,000 unit Documented By: CHAPARRITA Piperacillin Sod/Tazobactam (Sod 2.25 gm/ Sodium Chloride) 50 mls @ 100 mls/hr IV Q6H [facility] Last Infusion: 03/07/23 06:41 Dose: Infused Documented By: JUAN Vancomycin HCl 750 mg/ Sodium (Chloride) 265 mls @ 265 mls/hr IV Q24H [facility] Last Infusion: 03/06/23 16:41 Dose: Infused Documented By: REHANA Insulin Human Lispro (Insulin Lispro 100 Unit/Ml 3 Ml Vial) 0 unit SUBCUT QIDACHS [facility]; Protocol Last Admin: 03/07/23 08:35 Dose: Not Given Documented By: CHAPARRITA Non-Admin Reason: No Insulin Coverage Metoprolol Succinate (Metoprolol Succinate Er 25 Mg Tab.Er.24h) 25 mg PO DAILY [facility]; Protocol Last Admin: 03/07/23 09:28 Dose: 25 mg Documented By: CHAPARRITA Multivitamins/Vitamin C (Multivitamin Tablet) 1 tab PO DAILY [facility] Last Admin: 03/07/23 09:27 Dose: 1 tab Documented By: CHAPARRITA Nifedipine (Nifedipine Er 90 Mg Tab.Er.24) 90 mg PO BEDTIME [facility] Last Admin: 03/06/23 21:48 Dose: 90 mg Documented By: OLGA Ondansetron HCl (Ondansetron Hcl 4 Mg/2 Ml Vial) 4 mg IVPUSH Q8H PRN PRN Reason: Nausea and Vomiting Pharmacy Consult (Consult Rx Vancomycin Dosing) 1 each MISCELLANE DAILY PRN PRN Reason: Consult order Sodium Chloride (0.9 % Sodium Chloride Flush 3 Ml Syringe) 3 ml IVFLUSH QSHIFT [facility] Last Admin: 03/07/23 09:28 Dose: 3 ml Documented By: CHAPARRITA Vitamin D (Cholecalciferol (Vitamin D3) 25 Mcg Tablet) 25 mcg PO DAILY [facility] Last Admin: 03/07/23 09:28 Dose: 25 mcg Documented By: CHAPARRITA Labs 03/05/23 04:32 03/07/23 06:32 Labs: Laboratory Results - last 24 hr 03/06/23 03/06/23 03/06/23 11:43 16:08 20:01 Estim Creat Clear Calc Estimated GFR POC Glucose 186 H 150 H 196 H 03/07/23 03/07/23 06:32 07:42 Estim Creat Clear Calc 28.7 Estimated GFR 24 POC Glucose 138 H Microbiology Microbiology Results: Microbiology 03/04/23 11:15 Blood Culture - Preliminary Blood - Venous No growth after 48 hours. 03/04/23 10:35 Blood Culture - Preliminary Blood - Venous No growth after 48 hours. Assessment and Plan (1) Pneumonia: Status: Acute (2) Cellulitis: Status: Acute Plan 82-year-old male with history of hypertension, [id number] type 2 diabetes, CKD stage 3, history SVT, aortic stenosis, history osteomyelitis R great toe, and diabetic polyneuropathy admitted for diabetic foot infection with sepsis and question of osteomyelitis. #Infected stage 2 foot ulcer with sepsis with abscess, MRI shows abscess but no osteomylitis, Surgery did I and D on 03/05, persistent purulent discharge. Continue Zosyn+Vanco, monitor renal function, ID will follow, cultures so far negative. May possible need ampuation #PAD--will need angiogram by V[facility], US arterial study show Posterior tibial artery is occluded, along with diffuse disease see full report #Pneumonia --same Abx as above, doing well off O2 #Non-insulin dependent type 2 diabetes- with hyperglycemia -last A1c 6.7% -POC glucose -diabetic diet -humalog on sliding scale #HTN -bp reasonably controlled -continue metoprolol, nifedipine #History SVT -continue bb, ccb #CKD stage 3 -renal function baseline, nephrology following DVT prophylaxis- heparin Full code Pt requires inpatient stay at least 2 midnights for management of infected stage II diabetic foot ulcer with sepsis and with possible osteomyelitis requiring IV antibiotics requiring expert consultation, possible amputation vs penitentiary antibiotics. Time Spent With Patient Time: Total time managing care of this patient today ____ minutes. Quality Stroke Does the patient have a stroke diagnosis?: No VTE Prior VTE?: No VTE Risk Level:: Medical - moderate - high VTE Device Contraindication: Treatment Not Indicated VTE Drug Contraindication: N/A - Med Ordered
[2023-03-07 11:23] LABS: Glucose, Whole Blood 217 mg/dL (60-115)
--- NOTE | 2023-03-07 11:42 | PM.PNCARD ---
Subjective Subjective Date of Service: 03/07/23 Interval history: Seen and examined at bedside. Saying feeling lousy. Physical Exam Vital Signs: Last Vital Signs Temp 97.6 F 03/07/23 07:40 Pulse 86 03/07/23 07:40 Resp 20 03/07/23 07:40 BP 146/67 H 03/07/23 07:40 Pulse Ox 93 03/07/23 07:40 O2 Del Method Room Air 03/07/23 07:40 O2 Flow Rate 6 03/06/23 00:33 FiO2 70 03/05/23 07:51 BMI result Body Mass Index 29.5 GENERAL APPEARANCE: in no acute distress, pleasant. NECK: no carotid bruit, +jugular venous distention. SKIN: no suspicious lesions, warm and dry. HEART: Ejection systolic murmur aortic area with preserved 2nd heart sound, tachycardic 120/min LUNGS: Few crackles at bases. ABDOMEN: soft, nontender. EXTREMITIES: No significant edema. PERIPHERAL PULSES: equal. NEUROLOGIC: No gross deficits, AAO X 3 Objective Labs and Meds 03/05/23 04:32 03/07/23 06:32 Lab results: Laboratory Results - last 24 hr 03/06/23 03/06/23 03/06/23 11:43 16:08 20:01 Creatinine Estim Creat Clear Calc Estimated GFR POC Glucose 186 H 150 H 196 H 03/07/23 03/07/23 03/07/23 06:32 07:42 11:15 Creatinine 2.62 H Estim Creat Clear Calc 28.7 Estimated GFR 24 POC Glucose 138 H 217 H Progress Note: A&P Assessment and plan (1) PAD (peripheral artery disease): Status: Acute (2) SVT (supraventricular tachycardia): Status: Acute (3) CHF exacerbation: Status: Acute Plan 82-year-old with mod , HTN, CKD, diabetic foot presenting with foot infection/abscess. He was also diagnosed with pneumonia and developed congestive heart failure after fluid resuscitation. He has been on IV diuretics. He was feeling better yesterday but today complaining of feeling lousy. Heart rate up to 120s by examination. EKG performed which is showing potential SVT. Give 5 mg IV metoprolol. Will reassess him after that and will consider further management. I think he will need short-term amiodarone. Continue diuretics at the same dose. Thank you for allowing me to participate in the care of your patient. Please feel free to contact me if you have any questions. Time Spent With Patient Time: Total time managing care of this patient today ____ minutes. Progress Note: Quality Stroke Does the patient have a stroke diagnosis?: No Procedures Date of Service Date of Service: 03/07/23
[2023-03-07] MEDS: Insulin Lispro 100 UNIT/ML 3 ML VIAL SUBCUT ×2 (12:07→21:51)
[2023-03-07 12:08] VITALS: BP 141/78; PULSE 123
[2023-03-07] MEDS: Metoprolol Tartrate 5 MG in 0.9 % Sodium Chloride 50 ML 220 MG IV (12:09)
[2023-03-07] MEDS: Amiodarone HCL 200 MG TABLET 400 MG PO ×2 (13:02→21:52)
[2023-03-07 13:07] VITALS: BP 132/79; PULSE 111
[2023-03-07 13:27] LABS: Vancomycin Random 14.6 mcg/mL (15-20)
--- NOTE | 2023-03-07 13:40 | HE.PHANOTE ---
Vanco dose adjustment based on scr and trough of 14.6 dose continued at [id number]. next level at 03/09 @ 1300
[2023-03-07] MEDS: vancomycin HCL 750 MG in 0.9 % Sodium Chloride 250 ML 265 MG IV (15:13)
[2023-03-07 15:48] VITALS: BP 142/75; PULSE 114; RESP 16; TEMP 36.4; O2SAT 96
[2023-03-07 16:18] LABS: Glucose, Whole Blood 138 mg/dL (60-115)
--- NOTE | 2023-03-07 17:07 | PC.NURSE ---
pt had 5 beats of v tach. on assessment, pt is asymptomatic, denied chest pain or sob. HR 110s O2 92% on RA. pt is eating his dinner. notified.
[2023-03-07 19:35] VITALS: BP 135/67; PULSE 65; RESP 17; TEMP 36.2; O2SAT 97
--- NOTE | 2023-03-07 19:43 | P.PNNP_ITS ---
Subjective Subjective Date of Service: 03/07/23 Interval history: seen and examined, events noted Physical Exam 2 Vital Signs: Vital Signs: Last Vital Signs Temp 97.1 F 03/07/23 19:35 Pulse 65 03/07/23 19:35 Resp 17 03/07/23 19:35 BP 135/67 03/07/23 19:35 Pulse Ox 97 03/07/23 19:35 O2 Del Method Room Air 03/07/23 19:35 O2 Flow Rate 6 03/06/23 00:33 FiO2 70 03/05/23 07:51 BMI result Body Mass Index 29.5 Const: Other: Constitutional - Awake and Alert, No apparent distress Eyes - PERRLA, EOMI Cardiovascular - S1S2, RRR, IV/ systolic ejection murmur, 1+ pedal pulses bilaterally Respiratory - Normal lung expansion, Normal respiratory effort, No respiratory distress, CTA bilaterally Gastrointestinal - NT / ND; +BS; No rebound or guarding Extremities - no calf tenderness bilaterally, no swelling Musculoskeletal - Normal inspection, normal ROM Skin -see pic from yesterd, essentially no change Neurological - Alert & oriented x3, diminished sensation left foot Psychological - Appropriate affect General: cooperative, healthy appearing and comfortable O rientation/consciousness: oriented to person, oriented to place and oriented to time HEENT: Head: Yes normal to inspection Neck: Neck: Yes normal visual inspection Carotids: no bruits Chest: Chest palpation & inspection: normal inspection of the chest Resp: Effort & Inspection: normal respiratory effort and able to speak in complete sentences Auscultation: clear to auscultation bilaterally, no crackles, no rales, no rhonchi and no wheezes Cardio: Rate: regular rate Rhythm: regular rhythm Heart sounds: S1 normal heart sound present and S2 normal heart sound present Bruits: no carotid bruits Peripheral pulses: Peripheral pulses 2+ throughout GI: Inspection: Yes normal to inspection Skin: Other: Open webspace between the 1st and 2nd toe with purulent material penetrating all the way down to bone. Open. Plantar aspect ulcer penetrating deep as well. Wounds: no wounds Hair: normal Neuro: General: oriented to person, oriented to place and oriented to time Cranial nerves: Yes CN's II-XII intact bilaterally and Yes Normal hearing present Cognition (Neuro): normal cognition Motor exam (neuro): 5/5 motor strength present throughout Extrem: Other: venous exam: No significant superficial varicosities or spider telangiectasias, minimal edema General: No clubbing, No cyanosis and No edema Psych: Appearance: grossly normal Mental Status: mental status grossly normal Speech and movement: Normal speech and movement present Objective Data Labs 03/05/23 04:32 03/07/23 06:32 Labs: Laboratory Results - last 24 hr 03/06/23 03/07/23 03/07/23 20:01 06:32 07:42 Creatinine 2.62 H Estim Creat Clear Calc 28.7 Estimated GFR 24 POC Glucose 196 H 138 H Random Vancomycin 03/07/23 03/07/23 03/07/23 11:15 12:53 16:14 Creatinine Estim Creat Clear Calc Estimated GFR POC Glucose 217 H 138 H Random Vancomycin 14.6 L Microbiology Microbiology Results: Microbiology 03/04/23 11:15 Blood - Venous Blood Culture - Preliminary No growth after 48 hours. 03/04/23 10:35 Blood - Venous Blood Culture - Preliminary No growth after 48 hours. Procedures Date of Service Date of Service: 03/07/23 Assessment & Plan Assessment and plan (1) PAD (peripheral artery disease): Status: Acute (2) SVT (supraventricular tachycardia): Status: Acute (3) CHF exacerbation: Status: Acute Plan 1. CKD 4: c/w DN/HTN renal dis 2. Diabetic non-healing infection with ques signif PAD: vasc planning angio and siginf alfredo of [facility]-AY[facility] with approx 5-10 % chance of needing HD short term after IV C ; consider CO 2 angio to less IV C exposure 3. HTN 4. MBD of CKD REC: track UOP/renal fuc; avoid NSAIDS; check PTH will follow with team 82-year-old with mod , HTN, CKD, diabetic foot presenting with foot infection/abscess. He was also diagnosed with pneumonia and developed congestive heart failure after fluid resuscitation. He has been on IV diuretics. He was feeling better yesterday but today complaining of feeling lousy. Heart rate up to 120s by examination. EKG performed which is showing potential SVT. Give 5 mg IV metoprolol. Will reassess him after that and will consider further management. I think he will need short-term amiodarone. Continue diuretics at the same dose. Thank you for allowing me to participate in the care of your patient. Please feel free to contact me if you have any questions. Time Spent With Patient Time: Total time managing care of this patient today ____ minutes. Progress Note: Quality Stroke Does the patient have a stroke diagnosis?: No
[2023-03-07 20:26] LABS: Glucose, Whole Blood 239 mg/dL (60-115)
[2023-03-07] MEDS: NIFEdipine ER 90 MG TAB.ER.24 PO (21:52)
[2023-03-08] VITALS (7 sets, daily range): BP systolic 146–180; BP diastolic 70–80; PULSE 62–69; RESP 16–20; TEMP 35.9–37; O2SAT 95–98
[2023-03-08 08:03] LABS: Creatinine Clr Calc Pharmacy 28.8; Estimated Glomerular Filt Rate 24
[2023-03-08 08:17] LABS: Glucose, Whole Blood 132 mg/dL (60-115)
[2023-03-08 09:00] LABS: Hematocrit 34.8 % (42.0-52.0); Hemoglobin 11.6 g/dl (14.0-18.0); Mean Corpuscular HGB Conc 33.3 g/dl (31.0-36.0); Mean Corpuscular Hemoglobin 27.6 pg (27.0-33.0); Mean Corpuscular Volume 82.7 fL (80.0-98.0); Mean Platelet Volume 9.4 fL (9.4-12.4); Platelet Count 351 X10*3/uL (160-400); Red Blood Count 4.21 X10*6/uL (4.60-5.80); Red Cell Distribution Width 14.9 % (11.0-16.0); White Blood Count 10.4 X10*3/uL (4.8-10.8)
[2023-03-08] MEDS: Betamethasone Dip Aug 0.05% Cr 15 GM TUBE 1 APPL TOPICAL (09:05)
[2023-03-08] MEDS: Heparin Sodium,Porcine 5,000 UNIT/ML VIAL 5000 UNIT SUBCUT ×2 (09:07→22:28)
[2023-03-08] MEDS: Ascorbic Acid 500 MG TABLET PO (09:08)
[2023-03-08] MEDS: Multivitamin TABLET 1 TAB PO (09:08)
[2023-03-08] MEDS: Metoprolol Succinate ER 25 MG TAB.ER.24H PO (09:08)
[2023-03-08] MEDS: Furosemide 40 MG TABLET PO (09:08)
[2023-03-08] MEDS: Amiodarone HCL 200 MG TABLET 400 MG PO ×2 (09:09→22:27)
[2023-03-08] MEDS: Cholecalciferol (Vitamin D3) 25 MCG TABLET PO (09:09)
[2023-03-08 09:21] LABS: Atypical Lymph Absolute Manual 0.1 x10*3/uL; Atypical Lymphs Percent Manual 1 % (0-6); Band Neutrophils Percent 2 % (3-5); Eosinophils Absolute Manual 0.3 X10*3/uL (0.0-0.4); Eosinophils Percent Manual 3 % (0-4); Lymphocytes Absolute Manual 1.8 X10*3/uL (1.2-4.9); Lymphocytes Percent Manual 17 % (20-40); Metamyelocytes Absolute 0.2 X10*3/uL; Metamyelocytes Percent 2 %; Monocytes Absolute Manual 0.6 X10*3/uL (0.1-1.2); Monocytes Percent Manual 6 % (2-11); Myelocytes Absolute 0.3 X10*/uL; Myelocytes Percent 3 %; Neutrophils Absolute Manual 7.1 X10*3/uL (2.0-8.3); Neutrophils Percent Manual 66 % (45-73)
[2023-03-08 09:23] LABS: Platelet Estimate NORMAL (NORMAL); Platelet Morphology Comment NORMAL; RBC Morphology NORMAL
--- NOTE | 2023-03-08 09:28 | HE.PHANOTE ---
VANCO DOSE ADJUSTMENT BASED ON SCR DOSE CONTINUED AT 750 Q 24. NEXT TROUGH AT 03/09 @ 1300
--- NOTE | 2023-03-08 10:46 | P.PNIM_ITS ---
Subjective Subjective Date of Service: 03/08/23 Interval History: No new issues, redness around the wound seems better Physical Exam 2 Vital Signs: Vital Signs: Last Vital Signs Temp 97.0 F 03/08/23 07:57 Pulse 69 03/08/23 07:57 Resp 18 03/08/23 07:57 BP 146/70 H 03/08/23 07:57 Pulse Ox 95 03/08/23 07:57 O2 Del Method Room Air 03/08/23 07:57 O2 Flow Rate 6 03/06/23 00:33 FiO2 70 03/05/23 07:51 BMI result Body Mass Index 29.5 Const: Other: Constitutional - Awake and Alert, No apparent distress Eyes - PERRLA, EOMI Cardiovascular - S1S2, RRR, IV/ systolic ejection murmur, 1+ pedal pulses bilaterally Respiratory - Normal lung expansion, Normal respiratory effort, No respiratory distress, CTA bilaterally Gastrointestinal - NT / ND; +BS; No rebound or guarding Extremities - no calf tenderness bilaterally, no swelling Musculoskeletal - Normal inspection, normal ROM Skin -see pic from yesterd, essentially no change Neurological - Alert & oriented x3, diminished sensation left foot Psychological - Appropriate affect Objective Data Active Medications Acetaminophen (Acetaminophen 325 Mg Tablet) 650 mg PO Q6H PRN PRN Reason: Pain, Mild (Pain Scale 1-3) Last Admin: 03/06/23 15:39 Dose: 650 mg Documented By: REHANA Amiodarone HCl (Amiodarone Hcl 200 Mg Tablet) 400 mg PO BID [facility] Last Admin: 03/08/23 09:09 Dose: 400 mg Documented By: VIOLETA Ascorbic Acid (Ascorbic Acid 500 Mg Tablet) 500 mg PO DAILY [facility] Last Admin: 03/08/23 09:08 Dose: 500 mg Documented By: VIOLETA Calcium Carbonate (Calcium Carbonate 500 Mg Tablet) 500 mg PO DAILY [facility] Last Admin: 03/08/23 09:09 Dose: Not Given Documented By: VIOLETA Non-Admin Reason: Patient Refused Dextrose (Dextrose 50 % 25 Gm/50 Ml Syringe) 25 gm IVPUSH Q15M PRN; Protocol PRN Reason: per Hypoglycemia Standing Ord. Docusate Sodium (Docusate Sodium 100 Mg Capsule) 100 mg PO DAILY PRN PRN Reason: Constipation Furosemide (Furosemide 40 Mg Tablet) 40 mg PO DAILY [facility]; Protocol Last Admin: 03/08/23 09:08 Dose: 40 mg Documented By: VIOLETA Glucose (Glucose Gel 15 Gm Gel..Gram.) 15 gm PO Q15M PRN; Protocol PRN Reason: per Hypoglycemia Standing Ord. Guaifenesin (Guaifenesin 200 Mg/10 Ml 10 Ml Liquid) 10 ml PO Q4H PRN PRN Reason: Cough Guaifenesin/Dextromethorphan (Guaifenesin Dm 100/10/5 Ml 5 Ml Syrup) 5 ml PO Q4H PRN PRN Reason: Cough Heparin Sodium (Porcine) (Heparin Sodium,Porcine 5,000 Unit/Ml Vial) 5,000 unit SUBCUT BID [facility] Last Admin: 03/08/23 09:07 Dose: 5,000 unit Documented By: VIOLETA Piperacillin Sod/Tazobactam (Sod 2.25 gm/ Sodium Chloride) 50 mls @ 100 mls/hr IV Q6H [facility] Last Infusion: 03/08/23 09:19 Dose: Infused Documented By: VIOLETA Vancomycin HCl 750 mg/ Sodium (Chloride) 265 mls @ 265 mls/hr IV Q24H [facility] Last Infusion: 03/07/23 16:15 Dose: Infused Documented By: DONALD Insulin Human Lispro (Insulin Lispro 100 Unit/Ml 3 Ml Vial) 0 unit SUBCUT QIDACHS [facility]; Protocol Last Admin: 03/08/23 08:23 Dose: Not Given Documented By: VIOLETA Non-Admin Reason: No Insulin Coverage Metoprolol Succinate (Metoprolol Succinate Er 25 Mg Tab.Er.24h) 25 mg PO DAILY [facility]; Protocol Last Admin: 03/08/23 09:08 Dose: 25 mg Documented By: VIOLETA Multivitamins/Vitamin C (Multivitamin Tablet) 1 tab PO DAILY [facility] Last Admin: 03/08/23 09:08 Dose: 1 tab Documented By: VIOLETA Nifedipine (Nifedipine Er 60 Mg Tab.Er.24) 120 mg PO BEDTIME [facility] Ondansetron HCl (Ondansetron Hcl 4 Mg/2 Ml Vial) 4 mg IVPUSH Q8H PRN PRN Reason: Nausea and Vomiting Pharmacy Consult (Consult Rx Vancomycin Dosing) 1 each MISCELLANE DAILY PRN PRN Reason: Consult order Sodium Chloride (0.9 % Sodium Chloride Flush 3 Ml Syringe) 3 ml IVFLUSH QSHIFT [facility] Last Admin: 03/08/23 09:07 Dose: 3 ml Documented By: VIOLETA Vitamin D (Cholecalciferol (Vitamin D3) 25 Mcg Tablet) 25 mcg PO DAILY [facility] Last Admin: 03/08/23 09:09 Dose: 25 mcg Documented By: VIOLETA Labs 03/08/23 08:49 03/08/23 06:59 Labs: Laboratory Results - last 24 hr 03/07/23 03/07/23 03/07/23 11:15 12:53 16:14 MCV MCH MCHC RDW Plt Count MPV Immature Gran % (Auto) Neut % (Auto) Lymph % (Auto) [place] % (Auto) Eos % (Auto) Baso % (Auto) Lymph # (Auto) [place] # (Auto) Eos # (Auto) Baso # (Auto) Abs Immat Gran (auto) Absolute Neuts (auto) Absolute Nucleated RBC Nucleated RBC % (auto) Neutrophils % (Manual) Band Neutrophils % Lymphocytes % (Manual) Atypical Lymphs % (Man) Monocytes % (Manual) Eosinophils % (Manual) Metamyelocytes % Myelocytes % Abs Neuts (Manual) Lymphocytes # (Manual) Atyp Lymphs # (Manual) Monocytes # (Manual) Eosinophils # (Manual) Metamyelocytes # Myelocytes # Platelet Estimate Plt Morphology Comment RBC Morphology Estim Creat Clear Calc Estimated GFR POC Glucose 217 H 138 H Random Vancomycin 14.6 L 03/07/23 03/08/23 03/08/23 20:22 06:59 07:56 MCV MCH MCHC RDW Plt Count MPV Immature Gran % (Auto) Neut % (Auto) Lymph % (Auto) [place] % (Auto) Eos % (Auto) Baso % (Auto) Lymph # (Auto) [place] # (Auto) Eos # (Auto) Baso # (Auto) Abs Immat Gran (auto) Absolute Neuts (auto) Absolute Nucleated RBC Nucleated RBC % (auto) Neutrophils % (Manual) Band Neutrophils % Lymphocytes % (Manual) Atypical Lymphs % (Man) Monocytes % (Manual) Eosinophils % (Manual) Metamyelocytes % Myelocytes % Abs Neuts (Manual) Lymphocytes # (Manual) Atyp Lymphs # (Manual) Monocytes # (Manual) Eosinophils # (Manual) Metamyelocytes # Myelocytes # Platelet Estimate Plt Morphology Comment RBC Morphology Estim Creat Clear Calc 28.8 Estimated GFR 24 POC Glucose 239 H 132 H Random Vancomycin 03/08/23 08:49 MCV 82.7 MCH 27.6 MCHC 33.3 RDW 14.9 Plt Count 351 D MPV 9.4 Immature Gran % (Auto) Cancelled Neut % (Auto) Cancelled Lymph % (Auto) Cancelled [place] % (Auto) Cancelled Eos % (Auto) Cancelled Baso % (Auto) Cancelled Lymph # (Auto) Cancelled [place] # (Auto) Cancelled Eos # (Auto) Cancelled Baso # (Auto) Cancelled Abs Immat Gran (auto) Cancelled Absolute Neuts (auto) Cancelled Absolute Nucleated RBC 0.000 Nucleated RBC % (auto) 0.0 Neutrophils % (Manual) 66 Band Neutrophils % 2 L Lymphocytes % (Manual) 17 L Atypical Lymphs % (Man) 1 Monocytes % (Manual) 6 Eosinophils % (Manual) 3 Metamyelocytes % 2 Myelocytes % 3 Abs Neuts (Manual) 7.1 Lymphocytes # (Manual) 1.8 Atyp Lymphs # (Manual) 0.1 Monocytes # (Manual) 0.6 Eosinophils # (Manual) 0.3 Metamyelocytes # 0.2 Myelocytes # 0.3 Platelet Estimate NORMAL Plt Morphology Comment NORMAL RBC Morphology NORMAL Estim Creat Clear Calc Estimated GFR POC Glucose Random Vancomycin Assessment and Plan (1) Pneumonia: Status: Acute (2) Cellulitis: Status: Acute Plan 82-year-old male with history of hypertension, [id number]-vzvquhrvy type 2 diabetes, CKD stage 3, history SVT, aortic stenosis, history osteomyelitis R great toe, and diabetic polyneuropathy admitted for diabetic foot infection with sepsis and question of osteomyelitis. #Infected stage 2 foot ulcer with sepsis with abscess, MRI shows abscess but no osteomylitis, Surgery did I and D on 03/05, persistent purulent discharge. Continue Zosyn+Vanco, monitor renal function, ID will follow, cultures so far negative. May possible need ampuation #PAD--will need angiogram by [facility], US arterial study show Posterior tibial artery is occluded, along with diffuse disease see full report #Pneumonia --same Abx as above, doing well off O2 #Non-insulin dependent type 2 diabetes- with hyperglycemia -last A1c 6.7% -POC glucose -diabetic diet -humalog on sliding scale #HTN -bp reasonably controlled -continue metoprolol, nifedipine #History SVT--presently in sinus rhythm -continue bb, ccb #CKD stage 3 -renal function baseline, nephrology following DVT prophylaxis- heparin Full code Pt requires inpatient stay at least 2 midnights for management of infected stage II diabetic foot ulcer with sepsis and with possible osteomyelitis requiring IV antibiotics requiring expert consultation, 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 Time Spent With Patient Time: Total time managing care of this patient today ____ minutes. Quality Stroke Does the patient have a stroke diagnosis?: No VTE Prior VTE?: No VTE Risk Level:: Medical - moderate - high VTE Device Contraindication: Treatment Not Indicated VTE Drug Contraindication: N/A - Med Ordered
[2023-03-08 11:40] LABS: Glucose, Whole Blood 191 mg/dL (60-115)
[2023-03-08] MEDS: Insulin Lispro 100 UNIT/ML 3 ML VIAL SUBCUT ×2 (11:46→22:27)
--- NOTE | 2023-03-08 12:40 | PM.PNCARD ---
Subjective Subjective Date of Service: 03/08/23 Interval history: Seen examined bedside. Back in sinus rhythm at this point. Physical Exam Vital Signs: Last Vital Signs Temp 97.8 F 03/08/23 11:45 Pulse 65 03/08/23 11:45 Resp 18 03/08/23 11:45 BP 164/73 H 03/08/23 11:45 Pulse Ox 96 03/08/23 11:45 O2 Del Method Room Air 03/08/23 11:45 O2 Flow Rate 6 03/06/23 00:33 FiO2 70 03/05/23 07:51 BMI result Body Mass Index 29.5 GENERAL APPEARANCE: in no acute distress, pleasant. NECK: no carotid bruit, no jugular venous distention. SKIN: no suspicious lesions, warm and dry. HEART: Ejection systolic murmur aortic area with preserved 2nd heart sound, regular rate and rhythm. LUNGS: Few crackles at bases. ABDOMEN: soft, nontender. EXTREMITIES: No significant edema. PERIPHERAL PULSES: equal. NEUROLOGIC: No gross deficits, AAO X 3 Objective Labs and Meds 03/08/23 08:49 03/08/23 06:59 Lab results: Laboratory Results - last 24 hr 03/07/23 03/07/23 03/07/23 12:53 16:14 20:22 WBC RBC Hgb Hct MCV MCH MCHC RDW Plt Count MPV Immature Gran % (Auto) Neut % (Auto) Lymph % (Auto) [place] % (Auto) Eos % (Auto) Baso % (Auto) Lymph # (Auto) [place] # (Auto) Eos # (Auto) Baso # (Auto) Abs Immat Gran (auto) Absolute Neuts (auto) Absolute Nucleated RBC Nucleated RBC % (auto) Neutrophils % (Manual) Band Neutrophils % Lymphocytes % (Manual) Atypical Lymphs % (Man) Monocytes % (Manual) Eosinophils % (Manual) Metamyelocytes % Myelocytes % Abs Neuts (Manual) Lymphocytes # (Manual) Atyp Lymphs # (Manual) Monocytes # (Manual) Eosinophils # (Manual) Metamyelocytes # Myelocytes # Platelet Estimate Plt Morphology Comment RBC Morphology Creatinine Estim Creat Clear Calc Estimated GFR POC Glucose 138 H 239 H Random Vancomycin 14.6 L 03/08/23 03/08/23 03/08/23 06:59 07:56 08:49 WBC 10.4 RBC 4.21 L Hgb 11.6 L Hct 34.8 L MCV 82.7 MCH 27.6 MCHC 33.3 RDW 14.9 Plt Count 351 D MPV 9.4 Immature Gran % (Auto) Cancelled Neut % (Auto) Cancelled Lymph % (Auto) Cancelled [place] % (Auto) Cancelled Eos % (Auto) Cancelled Baso % (Auto) Cancelled Lymph # (Auto) Cancelled [place] # (Auto) Cancelled Eos # (Auto) Cancelled Baso # (Auto) Cancelled Abs Immat Gran (auto) Cancelled Absolute Neuts (auto) Cancelled Absolute Nucleated RBC 0.000 Nucleated RBC % (auto) 0.0 Neutrophils % (Manual) 66 Band Neutrophils % 2 L Lymphocytes % (Manual) 17 L Atypical Lymphs % (Man) 1 Monocytes % (Manual) 6 Eosinophils % (Manual) 3 Metamyelocytes % 2 Myelocytes % 3 Abs Neuts (Manual) 7.1 Lymphocytes # (Manual) 1.8 Atyp Lymphs # (Manual) 0.1 Monocytes # (Manual) 0.6 Eosinophils # (Manual) 0.3 Metamyelocytes # 0.2 Myelocytes # 0.3 Platelet Estimate NORMAL Plt Morphology Comment NORMAL RBC Morphology NORMAL Creatinine 2.61 H Estim Creat Clear Calc 28.8 Estimated GFR 24 POC Glucose 132 H Random Vancomycin 03/08/23 11:36 WBC RBC Hgb Hct MCV MCH MCHC RDW Plt Count MPV Immature Gran % (Auto) Neut % (Auto) Lymph % (Auto) [place] % (Auto) Eos % (Auto) Baso % (Auto) Lymph # (Auto) [place] # (Auto) Eos # (Auto) Baso # (Auto) Abs Immat Gran (auto) Absolute Neuts (auto) Absolute Nucleated RBC Nucleated RBC % (auto) Neutrophils % (Manual) Band Neutrophils % Lymphocytes % (Manual) Atypical Lymphs % (Man) Monocytes % (Manual) Eosinophils % (Manual) Metamyelocytes % Myelocytes % Abs Neuts (Manual) Lymphocytes # (Manual) Atyp Lymphs # (Manual) Monocytes # (Manual) Eosinophils # (Manual) Metamyelocytes # Myelocytes # Platelet Estimate Plt Morphology Comment RBC Morphology Creatinine Estim Creat Clear Calc Estimated GFR POC Glucose 191 H Random Vancomycin Progress Note: A&P Assessment and plan (1) PAD (peripheral artery disease): Status: Acute (2) CHF exacerbation: Status: Acute (3) SVT (supraventricular tachycardia): Status: Acute Plan [age] year gentleman with moderate aortic valve stenosis, hypertension, chronic kidney disease, diabetes with diabetic foot infection who is presenting with foot infection. He was given IV fluid in the ER and developed congestive heart failure. Diuresed and has improved. He was in SVT yesterday with heart rate of 120. He was given beta-gretta and when she started on amiodarone 400 mg twice a day. He is back in sinus rhythm at this stage. We will continue the amiodarone short-term. Blood pressure is elevated and I am increasing the nifedipine to 120 mg daily. Intermediate risk for perioperative complication in case he gets angiogram and requires any toe amputation. Thank you for allowing me to participate in the care of your patient. Please feel free to contact me if you have any questions. Time Spent With Patient Time: Total time managing care of this patient today ____ minutes. Progress Note: Quality Stroke Does the patient have a stroke diagnosis?: No Procedures Date of Service Date of Service: 03/08/23
[2023-03-08] MEDS: vancomycin HCL 750 MG in 0.9 % Sodium Chloride 250 ML 265 MG IV (15:17)
--- NOTE | 2023-03-08 15:18 | PM.PNNEP ---
Subjective Subjective Date of Service: 03/08/23 Interval history: Seen and examined, events noted Physical Exam Vital Signs: Vital Signs: Last Vital Signs Temp 97.8 F 03/08/23 11:45 Pulse 65 03/08/23 11:45 Resp 18 03/08/23 11:45 BP 164/73 H 03/08/23 11:45 Pulse Ox 96 03/08/23 11:45 O2 Del Method Room Air 03/08/23 11:45 O2 Flow Rate 6 03/06/23 00:33 FiO2 70 03/05/23 07:51 BMI result Body Mass Index 29.5 Const: Other: Constitutional - Awake and Alert, No apparent distress Eyes - PERRLA, EOMI Cardiovascular - S1S2, RRR, IV/ systolic ejection murmur, 1+ pedal pulses bilaterally Respiratory - Normal lung expansion, Normal respiratory effort, No respiratory distress, CTA bilaterally Gastrointestinal - NT / ND; +BS; No rebound or guarding Extremities - no calf tenderness bilaterally, no swelling Musculoskeletal - Normal inspection, normal ROM Skin -see pic from yesterd, essentially no change Neurological - Alert & oriented x3, diminished sensation left foot Psychological - Appropriate affect General: cooperative, healthy appearing and comfortable Orientation/consciousness: oriented to person, oriented to place and oriented to time HEENT: Head: Yes normal to inspection Neck: Neck: Yes normal visual inspection Carotids: no bruits Chest: Chest palpation & inspection: normal inspection of the chest Resp: Effort & Inspection: normal respiratory effort and able to speak in complete sentences Auscultation: clear to auscultation bilaterally, no crackles, no rales, no rhonchi and no wheezes Cardio: Rate: regular rate Rhythm: regular rhythm Heart sounds: S1 normal heart sound present and S2 normal heart sound present Bruits: no carotid bruits Peripheral pulses: Peripheral pulses 2+ throughout GI: Inspection: Yes normal to inspection Skin: Other: Open webspace between the 1st and 2nd toe with purulent material penetrating all the way down to bone. Open. Plantar aspect ulcer penetrating deep as well. Wounds: no wounds Hair: normal Neuro: General: oriented to person, oriented to place and oriented to time Cranial nerves: Yes CN's II-XII intact bilaterally and Yes Normal hearing present Cognition (Neuro): normal cognition Motor exam (neuro): 5/5 motor strength present throughout Extrem: Other: venous exam: No significant superficial varicosities or spider telangiectasias, minimal edema General: No clubbing, No cyanosis and No edema Psych: Appearance: grossly normal Mental Status: mental status grossly normal Speech and movement: Normal speech and movement present Objective Data Labs 03/08/23 08:49 03/08/23 06:59 Labs: Laboratory Results - last 24 hr 03/07/23 03/07/23 03/08/23 16:14 20:22 06:59 WBC RBC Hgb Hct MCV MCH MCHC RDW Plt Count MPV Immature Gran % (Auto) Neut % (Auto) Lymph % (Auto) [place] % (Auto) Eos % (Auto) Baso % (Auto) Lymph # (Auto) [place] # (Auto) Eos # (Auto) Baso # (Auto) Abs Immat Gran (auto) Absolute Neuts (auto) Absolute Nucleated RBC Nucleated RBC % (auto) Neutrophils % (Manual) Band Neutrophils % Lymphocytes % (Manual) Atypical Lymphs % (Man) Monocytes % (Manual) Eosinophils % (Manual) Metamyelocytes % Myelocytes % Abs Neuts (Manual) Lymphocytes # (Manual) Atyp Lymphs # (Manual) Monocytes # (Manual) Eosinophils # (Manual) Metamyelocytes # Myelocytes # Platelet Estimate Plt Morphology Comment RBC Morphology Creatinine 2.61 H Estim Creat Clear Calc 28.8 Estimated GFR 24 POC Glucose 138 H 239 H 03/08/23 03/08/23 03/08/23 07:56 08:49 11:36 WBC 10.4 RBC 4.21 L Hgb 11.6 L Hct 34.8 L MCV 82.7 MCH 27.6 MCHC 33.3 RDW 14.9 Plt Count 351 D MPV 9.4 Immature Gran % (Auto) Cancelled Neut % (Auto) Cancelled Lymph % (Auto) Cancelled [place] % (Auto) Cancelled Eos % (Auto) Cancelled Baso % (Auto) Cancelled Lymph # (Auto) Cancelled [place] # (Auto) Cancelled Eos # (Auto) Cancelled Baso # (Auto) Cancelled Abs Immat Gran (auto) Cancelled Absolute Neuts (auto) Cancelled Absolute Nucleated RBC 0.000 Nucleated RBC % (auto) 0.0 Neutrophils % (Manual) 66 Band Neutrophils % 2 L Lymphocytes % (Manual) 17 L Atypical Lymphs % (Man) 1 Monocytes % (Manual) 6 Eosinophils % (Manual) 3 Metamyelocytes % 2 Myelocytes % 3 Abs Neuts (Manual) 7.1 Lymphocytes # (Manual) 1.8 Atyp Lymphs # (Manual) 0.1 Monocytes # (Manual) 0.6 Eosinophils # (Manual) 0.3 Metamyelocytes # 0.2 Myelocytes # 0.3 Platelet Estimate NORMAL Plt Morphology Comment NORMAL RBC Morphology NORMAL Creatinine Estim Creat Clear Calc Estimated GFR POC Glucose 132 H 191 H Microbiology Microbiology Results: Microbiology 03/04/23 11:15 Blood - Venous Blood Culture - Preliminary No growth after 48 hours. 03/04/23 10:35 Blood - Venous Blood Culture - Preliminary No growth after 48 hours. Procedures Date of Service Date of Service: 03/08/23 Assessment & Plan Assessment and plan (1) PAD (peripheral artery disease): Status: Acute (2) SVT (supraventricular tachycardia): Status: Acute (3) CHF exacerbation: Status: Acute Plan 1. CKD 4: c/w DN/HTN renal dis 2. Diabetic non-healing infection with ques signif PAD: vasc planning angio and siginf alfredo of C-AYAN with approx 5-10 % chance of needing HD short term after IV C ; consider CO 2 angio to less IV C exposure 3. HTN 4. MBD of CKD REC: track UOP/renal fuc; avoid NSAIDS; check PTH; avoid laxmi/arb at this time will follow with team Time Spent With Patient Time: Total time managing care of this patient today ____ minutes. Progress Note: Quality Stroke Does the patient have a stroke diagnosis?: No
[2023-03-08 17:04] LABS: Glucose, Whole Blood 132 mg/dL (60-115)
[2023-03-08 20:11] LABS: Glucose, Whole Blood 180 mg/dL (60-115)
[2023-03-08] MEDS: NIFEdipine ER 60 MG TAB.ER.24 120 MG PO (22:27)
[2023-03-09 03:49] VITALS: BP 158/77; PULSE 67; RESP 18; TEMP 37; O2SAT 95
[2023-03-09 07:09] LABS: Glucose, Whole Blood 143 mg/dL (60-115)
[2023-03-09 07:49] VITALS: BP 173/77; PULSE 79; RESP 20; TEMP 36.2; O2SAT 98
[2023-03-09 08:51] LABS: Creatinine Clr Calc Pharmacy 29.7; Estimated Glomerular Filt Rate 25
[2023-03-09] MEDS: Amiodarone HCL 200 MG TABLET 400 MG PO ×2 (08:57→21:07)
[2023-03-09] MEDS: Furosemide 40 MG TABLET PO (08:57)
[2023-03-09] MEDS: Heparin Sodium,Porcine 5,000 UNIT/ML VIAL 5000 UNIT SUBCUT (08:57)
[2023-03-09] MEDS: Multivitamin TABLET 1 TAB PO (08:57)
[2023-03-09] MEDS: Ascorbic Acid 500 MG TABLET PO (08:57)
[2023-03-09] MEDS: Cholecalciferol (Vitamin D3) 25 MCG TABLET PO (08:57)
[2023-03-09] MEDS: Metoprolol Succinate ER 25 MG TAB.ER.24H PO (08:57)
[2023-03-09 11:08] LABS: Glucose, Whole Blood 255 mg/dL (60-115)
--- NOTE | 2023-03-09 11:10 | MHC.CM.PN ---
Addendum entered by Michela Dowd RN 03/09/23 13:42: Correction: per MD note, angio planned for 03/11. Original Note: EMR reviewed. Per MD rounds patient is not medically cleared for DC at this time. Plan for angio today. [facility] following and updated via [facility]. CM will continue to follow.
[2023-03-09 11:13] VITALS: BP 141/67; PULSE 66; RESP 20; TEMP 36.1; O2SAT 97
[2023-03-09] MEDS: Insulin Lispro 100 UNIT/ML 3 ML VIAL SUBCUT (11:51)
--- NOTE | 2023-03-09 11:58 | P.PNIM_ITS ---
Subjective Subjective Date of Service: 03/09/23 Interval History: No new issues, redness around the wound seems better Physical Exam 2 Vital Signs: Vital Signs: Last Vital Signs Temp 96.9 F 03/09/23 11:13 Pulse 66 03/09/23 11:13 Resp 20 03/09/23 11:13 BP 141/67 H 03/09/23 11:13 Pulse Ox 97 03/09/23 11:13 O2 Del Method Room Air 03/09/23 11:13 O2 Flow Rate 6 03/06/23 00:33 FiO2 70 03/05/23 07:51 BMI result Body Mass Index 29.5 Const: Other: Constitutional - Awake and Alert, No apparent distress Eyes - PERRLA, EOMI Cardiovascular - S1S2, RRR, IV/ systolic ejection murmur, 1+ pedal pulses bilaterally Respiratory - Normal lung expansion, Normal respiratory effort, No respiratory distress, CTA bilaterally Gastrointestinal - NT / ND; +BS; No rebound or guarding Extremities - no calf tenderness bilaterally, no swelling Musculoskeletal - Normal inspection, normal ROM Skin -see pic from yesterd, essentially no change Neurological - Alert & oriented x3, diminished sensation left foot Psychological - Appropriate affect Objective Data Active Medications Acetaminophen (Acetaminophen 325 Mg Tablet) 650 mg PO Q6H PRN PRN Reason: Pain, Mild (Pain Scale 1-3) Last Admin: 03/06/23 15:39 Dose: 650 mg Documented By: REHANA Amiodarone HCl (Amiodarone Hcl 200 Mg Tablet) 400 mg PO BID [facility] Last Admin: 03/09/23 08:57 Dose: 400 mg Documented By: REHANA Ascorbic Acid (Ascorbic Acid 500 Mg Tablet) 500 mg PO DAILY [facility] Last Admin: 03/09/23 08:57 Dose: 500 mg Documented By: REHANA Calcium Carbonate (Calcium Carbonate 500 Mg Tablet) 500 mg PO DAILY [facility] Last Admin: 03/09/23 08:58 Dose: Not Given Documented By: REHANA Non-Admin Reason: Patient Refused Dextrose (Dextrose 50 % 25 Gm/50 Ml Syringe) 25 gm IVPUSH Q15M PRN; Protocol PRN Reason: per Hypoglycemia Standing Ord. Docusate Sodium (Docusate Sodium 100 Mg Capsule) 100 mg PO DAILY PRN PRN Reason: Constipation Furosemide (Furosemide 40 Mg Tablet) 40 mg PO DAILY [facility]; Protocol Last Admin: 03/09/23 08:57 Dose: 40 mg Documented By: REHANA Glucose (Glucose Gel 15 Gm Gel..Gram.) 15 gm PO Q15M PRN; Protocol PRN Reason: per Hypoglycemia Standing Ord. Guaifenesin (Guaifenesin 200 Mg/10 Ml 10 Ml Liquid) 10 ml PO Q4H PRN PRN Reason: Cough Guaifenesin/Dextromethorphan (Guaifenesin Dm 100/10/5 Ml 5 Ml Syrup) 5 ml PO Q4H PRN PRN Reason: Cough Heparin Sodium (Porcine) (Heparin Sodium,Porcine 5,000 Unit/Ml Vial) 5,000 unit SUBCUT BID [facility] Last Admin: 03/09/23 08:57 Dose: 5,000 unit Documented By: REHANA Piperacillin Sod/Tazobactam (Sod 2.25 gm/ Sodium Chloride) 50 mls @ 100 mls/hr IV Q6H [facility] Last Admin: 03/09/23 11:51 Dose: 100 mls/hr Documented By: REHANA Vancomycin HCl 750 mg/ Sodium (Chloride) 265 mls @ 265 mls/hr IV Q24H [facility] Last Infusion: 03/08/23 16:33 Dose: Infused Documented By: VIOLETA Insulin Human Lispro (Insulin Lispro 100 Unit/Ml 3 Ml Vial) 0 unit SUBCUT QIDACHS [facility]; Protocol Last Admin: 03/09/23 11:51 Dose: 6 unit Documented By: REHANA Metoprolol Succinate (Metoprolol Succinate Er 25 Mg Tab.Er.24h) 25 mg PO DAILY [facility]; Protocol Last Admin: 03/09/23 08:57 Dose: 25 mg Documented By: REHANA Multivitamins/Vitamin C (Multivitamin Tablet) 1 tab PO DAILY [facility] Last Admin: 03/09/23 08:57 Dose: 1 tab Documented By: REHANA Nifedipine (Nifedipine Er 60 Mg Tab.Er.24) 120 mg PO BEDTIME [facility] Last Admin: 03/08/23 22:27 Dose: 120 mg Documented By: KATE Ondansetron HCl (Ondansetron Hcl 4 Mg/2 Ml Vial) 4 mg IVPUSH Q8H PRN PRN Reason: Nausea and Vomiting Pharmacy Consult (Consult Rx Vancomycin Dosing) 1 each MISCELLANE DAILY PRN PRN Reason: Consult order Sodium Chloride (0.9 % Sodium Chloride Flush 3 Ml Syringe) 3 ml IVFLUSH QSHIFT [facility] Last Admin: 03/09/23 08:58 Dose: 3 ml Documented By: REHANA Vitamin D (Cholecalciferol (Vitamin D3) 25 Mcg Tablet) 25 mcg PO DAILY [facility] Last Admin: 03/09/23 08:57 Dose: 25 mcg Documented By: REHANA Labs 03/08/23 08:49 03/09/23 07:20 Labs: Laboratory Results - last 24 hr 03/08/23 03/08/23 03/09/23 16:56 19:54 07:02 Hold Purple Top Estim Creat Clear Calc Estimated GFR POC Glucose 132 H 180 H 143 H 03/09/23 03/09/23 07:20 10:59 Hold Purple Top SEE NOTE Estim Creat Clear Calc 29.7 Estimated GFR 25 POC Glucose 255 H Assessment and Plan (1) Pneumonia: Status: Acute (2) Cellulitis: Status: Acute Plan 82-year-old male with history of hypertension, [id number] type 2 diabetes, CKD stage 3, history SVT, aortic stenosis, history osteomyelitis R great toe, and diabetic polyneuropathy admitted for diabetic foot infection with sepsis and question of osteomyelitis. #Infected stage 2 foot ulcer with sepsis with abscess, MRI shows abscess but no osteomylitis, Surgery did I and D on 03/05, persistent purulent discharge. Continue Zosyn+Vanco, monitor renal function, ID will follow, cultures so far negative. May possible need ampuation. Dr Jewell to come up with plan for the week #PAD--will need angiogram by Vascular, US arterial study show Posterior tibial artery is occluded, along with diffuse disease see full report #Pneumonia --same Abx as above, doing well off O2 #Non-insulin dependent type 2 diabetes- with hyperglycemia -last A1c 6.7% -POC glucose -diabetic diet -humalog on sliding scale #HTN -bp reasonably controlled -continue metoprolol, nifedipine #History SVT--presently in sinus rhythm -continue bb, ccb #CKD stage 3 -renal function baseline, nephrology following DVT prophylaxis- heparin Full code Pt requires inpatient stay at least 2 midnights for management of infected stage II diabetic foot ulcer with sepsis and with possible osteomyelitis requiring IV antibiotics requiring expert consultation, possible amputation vs terminal superintendent antibiotics. Time Spent With Patient Time: Total time managing care of this patient today ____ minutes. Quality Stroke Does the patient have a stroke diagnosis?: No VTE Prior VTE?: No VTE Risk Level:: Medical - moderate - high VTE Device Contraindication: Treatment Not Indicated VTE Drug Contraindication: N/A - Med Ordered
--- NOTE | 2023-03-09 12:30 | W.PM.OPN ---
Operative Note Operative Note Date of Service: 03/09/23
--- NOTE | 2023-03-09 12:54 | P.PNVS_ITS ---
Subjective Subjective Date of Service: 03/09/23 Patient reports: no new complaints and feels better Interval history: Patient seen and examined. Events of the past weekend noted. Appears to be doing significantly better. Respiration and overall status appears to be doing much better. In addition white count is down. Pain appears to be better. Physical Exam Vital Signs: Vital Signs: Last Vital Signs Temp 96.9 F 03/09/23 11:13 Pulse 66 03/09/23 11:13 Resp 20 03/09/23 11:13 BP 141/67 H 03/09/23 11:13 Pulse Ox 97 03/09/23 11:13 O2 Del Method Room Air 03/09/23 11:13 O2 Flow Rate 6 03/06/23 00:33 FiO2 70 03/05/23 07:51 BMI result Body Mass Index 29.5 Const: General: cooperative, healthy appearing and no acute distress Orientation/consciousness: oriented to person, oriented to place and oriented to time HEENT: Head: Yes normal to inspection Neck: Carotids: no bruits Chest: Chest palpation & inspection: normal inspection of the chest Resp: Effort & Inspection: normal respiratory effort and able to speak in complete sentences Auscultation: clear to auscultation bilaterally Cardio: Rate: regular rate Heart sounds: S1 normal heart sound present and S2 normal heart sound present GI: Inspection: Yes normal to inspection Skin: Other: Webspace between right great toe and 2nd toe appears to be doing much better. Clean. Minimal drainage. General skin exam: no rashes or lesions noted Wounds: no wounds Neuro: General: oriented to person, oriented to place, oriented to time and CN's II-XI intact bilaterally Extrem: General: Yes normal to inspection, Yes full ROM and Yes no clubbing, cyanosis or edema Psych: Appearance: grossly normal and well kempt Speech and movement: Norm al speech and movement present Affect: normal affect Progress Note: A&P Assessment and plan (1) PAD (peripheral artery disease): Status: Acute Assessment and Plan: In short patient has nonhealing diabetic foot ulcer. In addition the patient has peripheral vascular disease. Will plan for angiogram this Thursday. Continue with local wound care. Case discussed with infectious disease in will treat as osteomyelitis. Will need long-term IV antibiotics. I did discuss that with the patient and granddaughter that he is at risk for amputation. The demonstrated full understanding. Thank you for allowing us to assist in his care. If there are questions or concerns please do not hesitate to contact us. Time Spent With Patient Time: Total time managing care of this patient today ____ minutes. Procedures Date of Service Date of Service: 03/09/23 Quality Stroke Does the patient have a stroke diagnosis?: No VTE Prior VTE?: No VTE Risk Level:: Medical - moderate - high VTE Device Contraindication: Treatment Not Indicated VTE Drug Contraindication: N/A - Med Ordered
[2023-03-09 13:54] LABS: Vancomycin Random 16.5 mcg/mL (15-20)
[2023-03-09 15:44] VITALS: BP 147/69; PULSE 58; RESP 16; TEMP 36.3; O2SAT 98
--- NOTE | 2023-03-09 16:11 | HO.WOUND ---
Wound Consult: Follow Up 82yr old male admitted to [facility] on 03/04/23 12:31 for Left Plantar foot Infection- See progress notes and H&P for detailed history. ?See progress notes for details. Left Plantar Foot Etiology: Diabetic Foot Wound Wound Bed: Difficult to visualize Drainage / Odor: Mildmalodor noted with serosang creamy purulent drainage noted Edges: ?unattached Joanne wound: unable to palpate pedal pulses today, foot remains warm and improved pink erythema, ?no fluctuance, no induration noted. Pain: Denies Pain - per reports neuropathy Goals of Treatment: ?Off Load Pressure and pack wound bed with Iodoform strip packing. At time of discharge recommend continued follow up with outpatient Podiatry and Vascular Surgery for wound care treatment and off loading recommendations. Left Foot between 1st & 2nd Toes Etiology: Diabetic Foot Wound with Arterial Component Wound Bed: Necrotic fibrinous yellow clark brown slough Drainage / Odor: Mild malodor noted with clark drainage noted Edges: ?unattached Joanne wound:? improved pink erythema and hyperpigmentation noted, macerated wound edges may consider topical recommendation changes at next assessment if periwound continues to be macerated Pain: Denies Pain - per reports neuropathy Goals of Treatment: ?Per discussion with Dr. Jewell pack wound bed with Alginate AG. (Durafiber AG) Wound Care Followup: ?3-5 days. No new topical orders at this time continue to follow current orders in place. Recommendations made at last assessment: 1. Left Foot - Elevate Left Foot off of bed surface with use of pillow. Cleanse and Irrigate with NS. ?Apply Barrier wipes to periwound, allow to dry. ?Pack plantar wound with Iodoform strip packing, be sure to leave a wick for easy removal. ?Do not pack tight, pack light and loosely. ?Pack wound between 1 & 2 toes with Cut to size Durafiber AG ([place] Alginate). Cover with dry gauze, abd pad and wrap with gauze. Change Daily. 2. Turn and Reposition every 2 hours and as needed for patient comfort. 3. Off Load all bony prominences with use of pillows. 4. Provide adequate and supplemental nutrition. 5. Follow Physician orders for glucose control.?
[2023-03-09 16:21] LABS: Glucose, Whole Blood 106 mg/dL (60-115)
--- NOTE | 2023-03-09 16:31 | W.PM.IDCN ---
History of Present Illness Data of Consult Service Date: 03/09/23 Requesting physician: Jaime Leary Primary Care Provider: Jos Mirza MD [facility] Reason for consult: foot infection He presents with left foot redness and swelling. He said this started two days ago. His is having brain surgery in [place] so he left to see her. He denies foot injury. I had seen him in past. Review of Systems Review of Systems: Yes all other systems are reviewed and are negative Genitourinary: Comments: foot redness and swelling PMFSH Past Medical History Medical History HTN (hypertension) Osteomyelitis Sepsis Diabetic neuropathy History of osteomyelitis Aortic stenosis Cellulitis of foot Heart murmur Kidney disease Diabetes Family History Family History Father Heart attack CVD (cardiovascular disease) Mother Colon cancer Family history: reviewed and not pertinent Surgical History Surgical History Hx of colonoscopy Hx of esophagogastroduodenoscopy History of hammer toe correction (~05/2021) Social History Social History Household Members: Spouse Housing: House Do you presently have visiting nurse or other home services: No Unable to assess alcohol history related to: Unable to respond Alcohol intake: never Patient Tobacco Use Status: Never used Tobacco service: No Current occupational status: retired Meds Allergies Allergy/AdvReac Type Severity Reaction Status Date / Time latex AdvReac Unknown itchy Uncoded 02/28/23 21:55 since picc line has been put in Active Medications: Current Medications Acetaminophen (Acetaminophen 325 Mg Tablet) 650 mg PO Q6H PRN PRN Reason: Pain, Mild (Pain Scale 1-3) Last Admin: 03/06/23 15:39 Dose: 650 mg Amiodarone HCl (Amiodarone Hcl 200 Mg Tablet) 400 mg PO BID REPLACED BY [facility] Last Admin: 03/09/23 08:57 Dose: 400 mg Ascorbic Acid (Ascorbic Acid 500 Mg Tablet) 500 mg PO DAILY REPLACED BY [facility] Last Admin: 03/09/23 08:57 Dose: 500 mg Calcium Carbonate (Calcium Carbonate 500 Mg Tablet) 500 mg PO DAILY REPLACED BY [facility] Last Admin: 10/16/23 08:58 Dose: Not Given Dextrose (Dextrose 50 % 25 Gm/50 Ml Syringe) 25 gm IVPUSH Q15M PRN; Protocol PRN Reason: per Hypoglycemia Standing Ord. Docusate Sodium (Docusate Sodium 100 Mg Capsule) 100 mg PO DAILY PRN PRN Reason: Constipation Furosemide (Furosemide 40 Mg Tablet) 40 mg PO DAILY REPLACED BY [facility]; Protocol Last Admin: 03/09/23 08:57 Dose: 40 mg Glucose (Glucose Gel 15 Gm Gel..Gram.) 15 gm PO Q15M PRN; Protocol PRN Reason: per Hypoglycemia Standing Ord. Guaifenesin (Guaifenesin 200 Mg/10 Ml 10 Ml Liquid) 10 ml PO Q4H PRN PRN Reason: Cough Guaifenesin/Dextromethorphan (Guaifenesin Dm 100/10/5 Ml 5 Ml Syrup) 5 ml PO Q4H PRN PRN Reason: Cough Heparin Sodium (Porcine) (Heparin Sodium,Porcine 5,000 Unit/Ml Vial) 5,000 unit SUBCUT BID REPLACED BY [facility] Last Admin: 03/09/23 08:57 Dose: 5,000 unit Piperacillin Sod/Tazobactam (Sod 2.25 gm/ Sodium Chloride) 50 mls @ 100 mls/hr IV Q6H REPLACED BY [facility] Last Infusion: 03/09/23 12:21 Dose: Infused Vancomycin HCl 750 mg/ Sodium (Chloride) 265 mls @ 265 mls/hr IV Q24H REPLACED BY [facility] Last Infusion: 03/08/23 16:33 Dose: Infused Insulin Human Lispro (Insulin Lispro 100 Unit/Ml 3 Ml Vial) 0 unit SUBCUT QIDACHS REPLACED BY [facility]; Protocol Last Admin: 03/09/23 11:51 Dose: 6 unit Metoprolol Succinate (Metoprolol Succinate Er 25 Mg Tab.Er.24h) 25 mg PO DAILY REPLACED BY [facility]; Protocol Last Admin: 03/09/23 08:57 Dose: 25 mg Multivitamins/Vitamin C (Multivitamin Tablet) 1 tab PO DAILY REPLACED BY [facility] Last Admin: 03/09/23 08:57 Dose: 1 tab Nifedipine (Nifedipine Er 60 Mg Tab.Er.24) 120 mg PO BEDTIME REPLACED BY [facility] Last Admin: 03/08/23 22:27 Dose: 120 mg Ondansetron HCl (Ondansetron Hcl 4 Mg/2 Ml Vial) 4 mg IVPUSH Q8H PRN PRN Reason: Nausea and Vomiting Pharmacy Consult (Consult Rx Vancomycin Dosing) 1 each MISCELLANE DAILY PRN PRN Reason: Consult order Sodium Chloride (0.9 % Sodium Chloride Flush 3 Ml Syringe) 3 ml IVFLUSH QSHIFT REPLACED BY [facility] Last Admin: 03/09/23 08:58 Dose: 3 ml Vitamin D (Cholecalciferol (Vitamin D3) 25 Mcg Tablet) 25 mcg PO DAILY REPLACED BY [facility] Last Admin: 03/09/23 08:57 Dose: 25 mcg Home Medications Medication Instructions Recorded Confirmed Last Taken Type ascorbic acid (vitamin C) 1,000 mg 500 mg PO DAILY 06/06/20 03/04/23 03/04/23 History tablet calcium carbonate 600 mg calcium 600 mg PO DAILY 06/06/20 03/04/23 03/04/23 History (1,500 mg) tablet (Calcium) cholecalciferol (vitamin D3) 25 25 mcg PO DAILY 06/06/20 03/04/23 03/04/23 History mcg (1,000 unit) capsule nifedipine 90 mg tablet,extended 90 mg PO BEDTIME 06/06/20 03/04/23 03/03/23 History release omega-3 fatty acids 1,000 mg 1,000 mg PO DAILY 06/06/20 03/04/23 03/04/23 History capsule (Fish Oil Concentrate) vitamin B complex (B 1 tab PO DAILY 06/06/20 03/04/23 03/04/23 History Complex-Vitamin B12 tablet) Physical Exam Vital Signs: Vital Signs: Last Vital Signs Temp 97.3 F 03/09/23 15:44 Pulse 58 03/09/23 15:44 Resp 16 03/09/23 15:44 BP 147/69 H 03/09/23 15:44 Pulse Ox 98 03/09/23 15:44 O2 Del Method Room Air 03/09/23 15:44 O2 Flow Rate 6 03/06/23 00:33 FiO2 70 03/05/23 07:51 BMI result Body Mass Index 29.5 Const: General: cooperative HEENT: Head: Yes normal to inspection Face and sinus: Yes normal facial exam Mouth: Normal oral and palatal mucosa present Teeth and gingiva: dentition normal Eyes: General: appearance normal, both eyes and all related structures Pupils: Equal, round and reactive pupils present Resp: Effort & Inspection: normal respiratory effort Cardio: Rate: regular rate Rhythm: regular rhythm GI: Palpation (GI): Soft to palpation and nontender : General: Yes no CVA tenderness Back/Spine/Pelvis: Back: no CVA tenderness Skin: General skin exam: no rashes or lesions noted Neuro: General: moves all extremities Cranial nerves: Yes Equal, round and reactive pupils present Extrem: Other: reddened left foot and swelling neuropathy Psych: Appearance: grossly normal Results Labs 03/08/23 08:49 03/09/23 07:20 Labs: BMP 03/09/23 07:20 Creatinine 2.53 H Microbiology Microbiology Results: Microbiology 03/04/23 11:15 Blood - Venous Blood Culture - Final No growth after 5 days. 03/04/23 10:35 Blood - Venous Blood Culture - Final No growth after 5 days. Assessment and Plan (1) Diabetic foot infection: Status: Acute He has had recurrent infections. He has used Ertapenem in past Osteomyelitis even though MRI negative as probes to bone. Plan Continue broad spectrum antibiotics Likely six weeks Ertapenem. Dr Jewell to address arterial insufficiency. Time Spent With Patient Time: Total time managing care of this patient today ____ minutes.
[2023-03-09 16:38] LABS: Strep Pneumo Ag urine Not Detected (Not Detected)
[2023-03-09] MEDS: vancomycin HCL 750 MG in 0.9 % Sodium Chloride 250 ML 265 MG IV (17:22)
[2023-03-09 19:42] VITALS: BP 150/68; PULSE 62; RESP 18; TEMP 36.5; O2SAT 99
[2023-03-09 20:37] LABS: Glucose, Whole Blood 154 mg/dL (60-115)
[2023-03-09] MEDS: NIFEdipine ER 60 MG TAB.ER.24 120 MG PO (21:07)
--- NOTE | 2023-03-09 21:21 | P.PNNP_ITS ---
Subjective Subjective Date of Service: 03/09/23 Interval history: Seen and examiend, events noted Physical Exam 2 Vital Signs: Vital Signs: Last Vital Signs Temp 97.7 F 03/09/23 19:42 Pulse 62 03/09/23 19:42 Resp 18 03/09/23 19:42 BP 150/68 H 03/09/23 19:42 Pulse Ox 99 03/09/23 19:42 O2 Del Method Room Air 03/09/23 19:42 O2 Flow Rate 6 03/06/23 00:33 FiO2 70 03/05/23 07:51 BMI result Body Mass Index 29.5 Const: Other: Constitutional - Awake and Alert, No apparent distress Eyes - PERRLA, EOMI Cardiovascular - S1S2, RRR, IV/ systolic ejection murmur, 1+ pedal pulses bilaterally Respiratory - Normal lung expansion, Normal respiratory effort, No respiratory distress, CTA bilaterally Gastrointestinal - NT / ND; +BS; No rebound or guarding Extremities - no calf tenderness bilaterally, no swelling Musculoskeletal - Normal inspection, normal ROM Skin -see pic from yesterd, essentially no change Neurological - Alert & oriented x3, diminished sensation left foot Psychological - Appropriate affect General: cooperative, healthy appearing and comfortable O rientation/consciousness: oriented to person, oriented to place and oriented to time HEENT: Head: Yes normal to inspection Neck: Neck: Yes normal visual inspection Carotids: no bruits Chest: Chest palpation & inspection: normal inspection of the chest Resp: Effort & Inspection: normal respiratory effort and able to speak in complete sentences Auscultation: clear to auscultation bilaterally, no crackles, no rales, no rhonchi and no wheezes Cardio: Rate: regular rate Rhythm: regular rhythm Heart sounds: S1 normal heart sound present and S2 normal heart sound present Bruits: no carotid bruits Peripheral pulses: Peripheral pulses 2+ throughout GI: Inspection: Yes normal to inspection Skin: Other: Open webspace between the 1st and 2nd toe with purulent material penetrating all the way down to bone. Open. Plantar aspect ulcer penetrating deep as well. Wounds: no wounds Hair: normal Neuro: General: oriented to person, oriented to place and oriented to time Cranial nerves: Yes CN's II-XII intact bilaterally and Yes Normal hearing present Cognition (Neuro): normal cognition Motor exam (neuro): 5/5 motor strength present throughout Extrem: Other: venous exam: No significant superficial varicosities or spider telangiectasias, minimal edema General: No clubbing, No cyanosis and No edema Psych: Appearance: grossly normal Mental Status: mental status grossly normal Speech and movement: Normal speech and movement present Objective Data Labs 03/08/23 08:49 03/09/23 07:20 Labs: Laboratory Results - last 24 hr 03/04/23 03/09/23 03/09/23 22:30 07:02 07:20 Hold Purple Top SEE NOTE Creatinine 2.53 H Estim Creat Clear Calc 29.7 Estimated GFR 25 POC Glucose 143 H Random Vancomycin Ur Strep pneumoniae Ag Not Detected 03/09/23 03/09/23 03/09/23 10:59 13:20 16:17 Hold Purple Top Creatinine Estim Creat Clear Calc Estimated GFR POC Glucose 255 H 106 Random Vancomycin 16.5 Ur Strep pneumoniae Ag 03/09/23 20:21 Hold Purple Top Creatinine Estim Creat Clear Calc Estimated GFR POC Glucose 154 H Random Vancomycin Ur Strep pneumoniae Ag Microbiology Microbiology Results: Microbiology 03/04/23 11:15 Blood - Venous Blood Culture - Final No growth after 5 days. 03/04/23 10:35 Blood - Venous Blood Culture - Final No growth after 5 days. Procedures Date of Service Date of Service: 03/09/23 Assessment & Plan Assessment and plan (1) PAD (peripheral artery disease): Status: Acute (2) SVT (supraventricular tachycardia): Status: Acute (3) CHF exacerbation: Status: Acute Plan 1. CKD 4: c/w DN/HTN renal dis 2. Diabetic non-healing infection with ques signif PAD: vasc planning angio and siginf alfredo of [facility] with approx 5-10 % chance of needing HD short term after IV C ; consider CO 2 angio to less IV C exposure 3. HTN 4. MBD of CKD REC: no new recs; track UOP/renal fuc; avoid NSAIDS; check PTH; avoid laxmi/arb at this time will follow with team Time Spent With Patient Time: Total time managing care of this patient today ____ minutes. Progress Note: Quality Stroke Does the patient have a stroke diagnosis?: No
[2023-03-09 23:34] VITALS: BP 158/72; PULSE 76; RESP 18; TEMP 36.6; O2SAT 96
[2023-03-10 03:24] VITALS: BP 166/73; PULSE 68; RESP 18; TEMP 36.6; O2SAT 92
[2023-03-10 07:41] LABS: Glucose, Whole Blood 139 mg/dL (60-115)
[2023-03-10 07:55] LABS: Creatinine Clr Calc Pharmacy 28.2; Estimated Glomerular Filt Rate 23
[2023-03-10 08:00] VITALS: BP 171/77; PULSE 76; RESP 20; TEMP 36.6; O2SAT 98
[2023-03-10] MEDS: Furosemide 40 MG TABLET PO (08:09)
[2023-03-10] MEDS: Amiodarone HCL 200 MG TABLET 400 MG PO ×2 (08:09→21:14)
[2023-03-10] MEDS: Acetaminophen 325 MG TABLET 650 MG PO (08:09)
[2023-03-10] MEDS: Cholecalciferol (Vitamin D3) 25 MCG TABLET PO (08:09)
[2023-03-10] MEDS: Ascorbic Acid 500 MG TABLET PO (08:09)
[2023-03-10] MEDS: Heparin Sodium,Porcine 5,000 UNIT/ML VIAL 5000 UNIT SUBCUT ×2 (08:09→21:15)
[2023-03-10] MEDS: Metoprolol Succinate ER 25 MG TAB.ER.24H PO ×2 (08:09→12:38)
[2023-03-10] MEDS: Multivitamin TABLET 1 TAB PO (08:09)
[2023-03-10 11:12] LABS: Glucose, Whole Blood 229 mg/dL (60-115)
--- NOTE | 2023-03-10 11:21 | P.PNIM_ITS ---
Subjective Subjective Date of Service: 03/10/23 Interval History: Overall seem to be improving, c/o of some left knee pain Physical Exam 2 Vital Signs: Vital Signs: Last Vital Signs Temp 97.9 F 03/10/23 08:00 Pulse 76 03/10/23 08:00 Resp 20 03/10/23 08:00 BP 171/77 H 03/10/23 08:00 Pulse Ox 98 03/10/23 08:00 O2 Del Method Room Air 03/10/23 08:00 O2 Flow Rate 6 03/06/23 00:33 FiO2 70 03/05/23 07:51 BMI result Body Mass Index 29.5 Const: Other: Constitutional - Awake and Alert, No apparent distress Eyes - PERRLA, EOMI Cardiovascular - S1S2, RRR, IV/ systolic ejection murmur, 1+ pedal pulses bilaterally Respiratory - Normal lung expansion, Normal respiratory effort, No respiratory distress, CTA bilaterally Gastrointestinal - NT / ND; +BS; No rebound or guarding Extremities - no calf tenderness bilaterally, no swelling, right knee looks little full, no erythema Musculoskeletal - Normal inspection, normal ROM Skin -see pic from yesterd, essentially no change Neurological - Alert & oriented x3, diminished sensation left foot Psychological - Appropriate affect Objective Data Active Medications Acetaminophen (Acetaminophen 325 Mg Tablet) 650 mg PO Q6H PRN PRN Reason: Pain, Mild (Pain Scale 1-3) Last Admin: 03/10/23 08:09 Dose: 650 mg Documented By: REHANA Amiodarone HCl (Amiodarone Hcl 200 Mg Tablet) 400 mg PO BID [facility] Last Admin: 03/10/23 08:09 Dose: 400 mg Documented By: REHANA Ascorbic Acid (Ascorbic Acid 500 Mg Tablet) 500 mg PO DAILY [facility] Last Admin: 03/10/23 08:09 Dose: 500 mg Documented By: REHANA Calcium Carbonate (Calcium Carbonate 500 Mg Tablet) 500 mg PO DAILY [facility] Last Admin: 03/10/23 07:45 Dose: Not Given Documented By: REHANA Non-Admin Reason: Patient Refused Dextrose (Dextrose 50 % 25 Gm/50 Ml Syringe) 25 gm IVPUSH Q15M PRN; Protocol PRN Reason: per Hypoglycemia Standing Ord. Docusate Sodium (Docusate Sodium 100 Mg Capsule) 100 mg PO DAILY PRN PRN Reason: Constipation Furosemide (Furosemide 40 Mg Tablet) 40 mg PO DAILY [facility]; Protocol Last Admin: 03/10/23 08:09 Dose: 40 mg Documented By: REHANA Glucose (Glucose Gel 15 Gm Gel..Gram.) 15 gm PO Q15M PRN; Protocol PRN Reason: per Hypoglycemia Standing Ord. Guaifenesin (Guaifenesin 200 Mg/10 Ml 10 Ml Liquid) 10 ml PO Q4H PRN PRN Reason: Cough Guaifenesin/Dextromethorphan (Guaifenesin Dm 100/10/5 Ml 5 Ml Syrup) 5 ml PO Q4H PRN PRN Reason: Cough Heparin Sodium (Porcine) (Heparin Sodium,Porcine 5,000 Unit/Ml Vial) 5,000 unit SUBCUT BID [facility] Last Admin: 03/10/23 08:09 Dose: 5,000 unit Documented By: REHANA Piperacillin Sod/Tazobactam (Sod 2.25 gm/ Sodium Chloride) 50 mls @ 100 mls/hr IV Q6H [facility] Last Infusion: 03/10/23 07:25 Dose: Infused Documented By: REHANA Vancomycin HCl 750 mg/ Sodium (Chloride) 265 mls @ 265 mls/hr IV Q24H [facility] Last Infusion: 03/09/23 18:25 Dose: Infused Documented By: REHANA Insulin Human Lispro (Insulin Lispro 100 Unit/Ml 3 Ml Vial) 0 unit SUBCUT QIDACHS [facility]; Protocol Last Admin: 03/10/23 07:45 Dose: Not Given Documented By: REHANA Non-Admin Reason: No Insulin Coverage Metoprolol Succinate (Metoprolol Succinate Er 25 Mg Tab.Er.24h) 25 mg PO DAILY [facility]; Protocol Last Admin: 03/10/23 08:09 Dose: 25 mg Documented By: REHANA Multivitamins/Vitamin C (Multivitamin Tablet) 1 tab PO DAILY [facility] Last Admin: 03/10/23 08:09 Dose: 1 tab Documented By: REHANA Nifedipine (Nifedipine Er 60 Mg Tab.Er.24) 120 mg PO BEDTIME [facility] Last Admin: 03/09/23 21:07 Dose: 120 mg Documented By: MARYANN Ondansetron HCl (Ondansetron Hcl 4 Mg/2 Ml Vial) 4 mg IVPUSH Q8H PRN PRN Reason: Nausea and Vomiting Pharmacy Consult (Consult Rx Vancomycin Dosing) 1 each MISCELLANE DAILY PRN PRN Reason: Consult order Sodium Chloride (0.9 % Sodium Chloride Flush 3 Ml Syringe) 3 ml IVFLUSH QSHIFT [facility] Last Admin: 03/10/23 08:09 Dose: 3 ml Documented By: REHANA Vitamin D (Cholecalciferol (Vitamin D3) 25 Mcg Tablet) 25 mcg PO DAILY [facility] Last Admin: 03/10/23 08:09 Dose: 25 mcg Documented By: REHANA Labs 03/08/23 08:49 03/10/23 06:54 Labs: Laboratory Results - last 24 hr 03/04/23 03/09/23 03/09/23 22:30 13:20 16:17 Estim Creat Clear Calc Estimated GFR POC Glucose 106 Random Vancomycin 16.5 Ur Strep pneumoniae Ag Not Detected 03/09/23 03/10/23 03/10/23 20:21 06:54 07:29 Estim Creat Clear Calc 28.2 Estimated GFR 23 POC Glucose 154 H 139 H Random Vancomycin Ur Strep pneumoniae Ag 03/10/23 11:08 Estim Creat Clear Calc Estimated GFR POC Glucose 229 H Random Vancomycin Ur Strep pneumoniae Ag Microbiology Microbiology Results: Microbiology 03/04/23 11:15 Blood Culture - Final Blood - Venous No growth after 5 days. 03/04/23 10:35 Blood Culture - Final Blood - Venous No growth after 5 days. Assessment and Plan (1) Pneumonia: Status: Acute (2) Cellulitis: Status: Acute Plan 82-year-old male with history of hypertension, [id number] type 2 diabetes, CKD stage 3, history SVT, aortic stenosis, history osteomyelitis R great toe, and diabetic polyneuropathy admitted for diabetic foot infection with sepsis and question of osteomyelitis. #Infected stage 2 foot ulcer with sepsis with abscess, MRI shows abscess but no osteomylitis, Surgery did I and D on 03/05. Continue Zosyn+Vanco, monitor renal function, ID recommends IV Abx x 6 weeks,, cultures so far negative. May possible need ampuation. Dr Jewell to do angiogram tomorrow #PAD--will need angiogram by [facility], US arterial study show Posterior tibial artery is occluded, along with diffuse disease see full report #Pneumonia --same Abx as above, doing well off O2 #Non-insulin dependent type 2 diabetes- with hyperglycemia -last A1c 6.7% -POC glucose -diabetic diet -humalog on sliding scale #HTN--BP's on high side, increase metoprolol to 50, Nifedpine has been increase from 90 to 120 earlier #History SVT--presently in sinus rhythm -continue bb, ccb #CKD stage 3 -renal function baseline, nephrology following DVT prophylaxis- heparin Full code Pt requires inpatient stay for management of infected stage II diabetic foot ulcer with sepsis, need for intervention . Time Spent With Patient Time: Total time managing care of this patient today ____ minutes. Quality Stroke Does the patient have a stroke diagnosis?: No VTE Prior VTE?: No VTE Risk Level:: Medical - moderate - high VTE Device Contraindication: Treatment Not Indicated VTE Drug Contraindication: N/A - Med Ordered
[2023-03-10 11:26] VITALS: BP 127/60; PULSE 59; RESP 18; TEMP 36.6; O2SAT 98
[2023-03-10] MEDS: Insulin Lispro 100 UNIT/ML 3 ML VIAL SUBCUT ×2 (12:38→21:15)
--- NOTE | 2023-03-10 13:59 | HO.VASCPN ---
Subjective Subjective Date of Service: 03/10/23 Patient reports: no new complaints and feels better Interval history: Complex 82-year-old gentleman with a significant diabetic foot ulcer on the left lower extremity. He has developed a significant ulcer between the 1st and 2nd webspace. Upon workup he was discovered to have arterial disease. He now presents for possible endovascular intervention. Physical Exam Vital Signs: Vital Signs: Last Vital Signs Temp 97.8 F 03/10/23 11:26 Pulse 59 03/10/23 11:26 Resp 18 03/10/23 11:26 BP 127/60 03/10/23 11:26 Pulse Ox 98 03/10/23 11:26 O2 Del Method Room Air 03/10/23 11:26 O2 Flow Rate 6 03/06/23 00:33 FiO2 70 03/05/23 07:51 BMI result Body Mass Index 29.5 Const: General: cooperative, healthy appearing and comfortable Orientation/consciousness: oriented to person, oriented to place and oriented to time HEENT: Head: Yes normal to inspection Neck: Neck: Yes normal visual inspection Carotids: no bruits Chest: Chest palpation & inspection: normal inspection of the chest Resp: Effort & Inspection: normal respiratory effort and able to speak in complete sentences Auscultation: clear to auscultation bilaterally, no crackles, no rales, no rhonchi and no wheezes Cardio: Rate: regular rate Rhythm: regular rhythm Heart sounds: S1 normal heart sound present and S2 normal heart sound present Bruits: no carotid bruits Peripheral pulses: Peripheral pulses 2+ throughout GI: Inspection: Yes normal to inspection Skin: Other: Penetrating ulcer on left leg between the 1st and 2nd webspace approximately 3 cm down. Wounds: no wounds Hair: normal Neuro: General: oriented to person, oriented to place and oriented to time Cranial nerves: Yes CN's II-XII intact bilaterally and Yes Normal hearing present Cognition (Neuro): normal cognition Motor exam (neuro): 5/5 motor strength present throughout Extrem: Other: venous exam: No significant superficial varicosities or spider telangiectasias, minimal edema General: No clubbing, No cyanosis and No edema Psych: Appearance: grossly normal Mental Status: mental status grossly normal Speech and movement: Normal speech and movement present Progress Note: A&P Assessment and plan (1) PAD (peripheral artery disease): Status: Acute Assessment and Plan: Patient notes nonhealing left leg wound. I have discussed the pathophysiology of peripheral vascular disease with the patient. I have also discussed risk factor modification. I have reviewed the patient's arterial testing which reveals left leg monophasic flow all the way down. the patient would benefit from a left leg endovascular peripheral angiogram with possible angioplasty, stent, and/or atherectomy. This has been discussed in detail with the patient along with risks, benefits, and complications. This includes but is not limited to bleeding, infection, heart attack, need for emergent surgical repair, limb ischemia, blood vessel damage, bleeding, puncture, kidney injury, bruising, allergic reaction, and skin reaction. The patient demonstrates a clear understanding. We will schedule for the next appropriate time. Thank you for allowing us to assist in this patient's care. Time Spent With Patient Time: Total time managing care of this patient today ____ minutes. Procedures Date of Service Date of Service: 03/10/23 Quality Stroke Does the patient have a stroke diagnosis?: No VTE Prior VTE?: No VTE Risk Level:: Medical - moderate - high VTE Device Contraindication: Treatment Not Indicated VTE Drug Contraindication: N/A - Med Ordered
[2023-03-10 15:22] VITALS: BP 138/67; PULSE 57; RESP 20; TEMP 36.2; O2SAT 94
[2023-03-10 15:34] LABS: Glucose, Whole Blood 92 mg/dL (60-115)
[2023-03-10] MEDS: vancomycin HCL 750 MG in 0.9 % Sodium Chloride 250 ML 265 MG IV (16:31)
[2023-03-10] MEDS: Lidocaine 4 % Patch ADH..PATCH 0.5 PATCH TRANSDERMA (17:10)
--- NOTE | 2023-03-10 19:29 | P.PNNP_ITS ---
Subjective Subjective Date of Service: 03/10/23 Interval history: Seen and examined,e vents noted Physical Exam 2 Vital Signs: Vital Signs: Last Vital Signs Temp 97.2 F 03/10/23 15:22 Pulse 57 03/10/23 15:22 Resp 20 03/10/23 15:22 BP 138/67 03/10/23 15:22 Pulse Ox 94 03/10/23 15:22 O2 Del Method Room Air 03/10/23 15:22 O2 Flow Rate 6 03/06/23 00:33 FiO2 70 03/05/23 07:51 BMI result Body Mass Index 29.5 Const: Other: Constitutional - Awake and Alert, No apparent distress Eyes - PERRLA, EOMI Cardiovascular - S1S2, RRR, IV/ systolic ejection murmur, 1+ pedal pulses bilaterally Respiratory - Normal lung expansion, Normal respiratory effort, No respiratory distress, CTA bilaterally Gastrointestinal - NT / ND; +BS; No rebound or guarding Extremities - no calf tenderness bilaterally, no swelling Musculoskeletal - Normal inspection, normal ROM Skin -see pic from yesterd, essentially no change Neurological - Alert & oriented x3, diminished sensation left foot Psychological - Appropriate affect General: cooperative, healthy appearing and comfortable O rientation/consciousness: oriented to person, oriented to place and oriented to time HEENT: Head: Yes normal to inspection Neck: Neck: Yes normal visual inspection Carotids: no bruits Chest: Chest palpation & inspection: normal inspection of the chest Resp: Effort & Inspection: normal respiratory effort and able to speak in complete sentences Auscultation: clear to auscultation bilaterally, no crackles, no rales, no rhonchi and no wheezes Cardio: Rate: regular rate Rhythm: regular rhythm Heart sounds: S1 normal heart sound present and S2 normal heart sound present Bruits: no carotid bruits Peripheral pulses: Peripheral pulses 2+ throughout GI: Inspection: Yes normal to inspection Skin: Other: Open webspace between the 1st and 2nd toe with purulent material penetrating all the way down to bone. Open. Plantar aspect ulcer penetrating deep as well. Wounds: no wounds Hair: normal Neuro: General: oriented to person, oriented to place and oriented to time Cranial nerves: Yes CN's II-XII intact bilaterally and Yes Normal hearing present Cognition (Neuro): normal cognition Motor exam (neuro): 5/5 motor strength present throughout Extrem: Other: venous exam: No significant superficial varicosities or spider telangiectasias, minimal edema General: No clubbing, No cyanosis and No edema Psych: Appearance: grossly normal Mental Status: mental status grossly normal Speech and movement: Normal speech and movement present Objective Data Labs 03/08/23 08:49 03/10/23 06:54 Labs: Laboratory Results - last 24 hr 03/09/23 03/10/23 03/10/23 20:21 06:54 07:29 Creatinine 2.67 H Estim Creat Clear Calc 28.2 Estimated GFR 23 POC Glucose 154 H 139 H 03/10/23 03/10/23 11:08 15:31 Creatinine Estim Creat Clear Calc Estimated GFR POC Glucose 229 H 92 Microbiology Microbiology Results: Microbiology 03/04/23 11:15 Blood - Venous Blood Culture - Final No growth after 5 days. 03/04/23 10:35 Blood - Venous Blood Culture - Final No growth after 5 days. Procedures Date of Service Date of Service: 03/10/23 Assessment & Plan Assessment and plan (1) PAD (peripheral artery disease): Status: Acute (2) SVT (supraventricular tachycardia): Status: Acute (3) CHF exacerbation: Status: Acute Plan 1. CKD 4: c/w DN/HTN renal dis 2. Diabetic non-healing infection with ques signif PAD: vasc planning angio and siginf alfredo of C-AYAN with approx 5-10 % chance of needing HD short term after IV C ; consider CO 2 angio to less IV C exposure 3. HTN 4. MBD of CKD REC: no new recs; track UOP/renal fuc; avoid NSAIDS; check PTH; avoid laxmi/arb at this time; give IVF pre and post angiio 10 0 ml/hr x 3 hrs pre and post will follow with team Time Spent With Patient Time: Total time managing care of this patient today ____ minutes. Progress Note: Quality Stroke Does the patient have a stroke diagnosis?: No
[2023-03-10 19:35] LABS: Glucose, Whole Blood 157 mg/dL (60-115)
[2023-03-10] MEDS: NIFEdipine ER 60 MG TAB.ER.24 120 MG PO (21:14)
[2023-03-10 23:54] VITALS: BP 163/81; PULSE 61; RESP 18; TEMP 37.3; O2SAT 97
[2023-03-11] VITALS (13 sets, daily range): BP systolic 131–164; BP diastolic 52–72; PULSE 55–81; RESP 16–20; TEMP 36.1–37.2; O2SAT 91–100
[2023-03-11 06:48] LABS: Glucose, Whole Blood 96 mg/dL (60-115)
[2023-03-11] MEDS: 0.9 % Sodium Chloride 1,000 ML 100 ML IVCONT ×2 (07:15→16:29)
--- NOTE | 2023-03-11 09:41 | P.OP_ITS ---
Operative Note Operative Note Date of Service: 03/11/23 Narrative: Angiogram report from [facility] Preoperative diagnosis: Atherosclerosis of Left lower extremity with nonhealing ulcer Postoperative diagnosis: Same Procedure: 1. Ultrasound-guided right common femoral access 2. Aortogram with left lower extremity runoff 3. angioplasty of left anterior tibial and peroneal arteries Surgeon:Aleks Jewell M.D., FACS, RPVI Drafter Civil Engineering:None Anesthesia: Local with moderate conscious sedation. Total intraservice moderate sedation time was 60 minutes. I monitored the patient's level of consciousness and physiologic status continuously throughout the procedure. Specimens:none Drains:none Estimated blood loss: Less than 10 ml Implant: non Indications: very pleasant 82-year-old gentleman with diabetic foot ulcer. Significant ulcer between the 1st and 2nd webspace. Upon workup was noted to have monophasic flow on ultrasound. He now presents for endovascular intervention. The patient has signed the informed consent after reviewing risks, complications, benefits, and alternatives previously discussed with the patient. The patient was given the opportunity to ask any additional questions or voice any concerns. All questions were answered to the patient's satisfaction. Procedure in detail: Patient was brought to the angiography suite prior to which a time-out was called for patient identification and site verification. Bilateral groins were prepped and draped in the standard surgical fashion. Under ultrasound guidance Right common femoral was punctured with micro puncture needle and wire. Subsequently a precision 4 Lithuanian sheath was then placed. Bentson wire was advanced to the level of the aorta. 4 Lithuanian Flush catheter was brought up and parked at the level of the renal arteries. Aortogram was then undertaken. Catheter was brought down to the level of the iliac bifurcation. Iliacs were subsequently imaged. Catheter was then brought in up and over to the left side SFA. Runoff study was then undertaken. at this time below-knee disease was recognize. We administered 8000 units of systemic heparin. After 5 minutes of circulation time a 035 glidewire Advantage was of placed up and over into the left SFA. Over this we placed a 6 [place]ian destination sheath. Once this was done we brought the wire down in to the tibial vessels. We brought a Navicross catheter and we did Mag views of the below-knee trifurcation. Once this was accomplished we exchanged out for an 014 wire. We 1st engaged the tibioperoneal trunk down into the prone ill artery this was 1st insufflated with a 2 x 40 balloon with 2 subsequent insufflations and subsequently 8 3 x 40 balloon with to insufflations of this as well. Once this was accomplished we redirected the wire down the anterior tibial artery we confirmed true lumen with contrast. We then plasty this area with a 2 x 40 balloon at the bend. And then subsequently a 3 x 40 balloon. Completion angiogram demonstrated excellent result. Catheter wire sheath was brought back to the ipsilateral side. StarClose closure device was deployed. Patient was returned to recovery with stable vitals. Interpretation of films: 1. Ultrasound demonstrates appropriate femoral puncture. Image of which was saved. 2. Aortogram demonstrates appropriate caliber aorta. Minimal disease. Appropriate take-off of the renals. 3. Iliac images demonstrate No significant disease 4. left Leg Common femoral artery: no significant disease Profundus Femoris: No significant disease Superficial femoral artery: no significant disease Popliteal artery (p1,p2,p3): no significant disease Anterior tibial artery: significant plaque at the bend. Post plasty demonstrated good flow all the way down to the ankle Peroneal artery: significant stenosis at the origin. Completion results demonstrate good flow down to the ankle Posterior tibial artery: total inclusion Dorsalis pedis/plantar arch: incomplete the majority of flow stops at the level of the ankle Conclusion: 1. successful plasty anterior tibial and peroneal arteries of the left leg. 2. Anticoagulation status: Will require 6 months of aspirin and Plavix. This note is constructed using voice recognition software. While every effort has been made to ensure accuracy, stopping builder errors may have been included. Thank you for allowing me to participate in the care of your patient. Yours sincerely, Aleks Jewell MD, FACS, R.P.V.I.
[2023-03-11] MEDS: Clopidogrel Bisulfate 300 MG TABLET PO (10:00)
[2023-03-11] MEDS: Aspirin 325 MG TABLET 650 MG PO (10:00)
--- NOTE | 2023-03-11 10:44 | HO.PM.IMPN ---
Subjective Subjective Date of Service: 03/12/23 Interval History: No new issues, was having some bleeding from the right groin after angio, controlled with pressure dressing Physical Exam Vital Signs: Vital Signs: Last Vital Signs Temp 97.7 F 03/11/23 09:35 Pulse 74 03/11/23 10:35 Resp 16 03/11/23 10:35 BP 132/54 L 03/11/23 10:35 Pulse Ox 92 03/11/23 10:35 O2 Del Method Room Air 03/11/23 10:35 O2 Flow Rate 6 03/06/23 00:33 FiO2 70 03/05/23 07:51 BMI result Body Mass Index 29.5 Const: Other: Constitutional - Awake and Alert, No apparent distress Eyes - PERRLA, EOMI Cardiovascular - S1S2, RRR, IV/ systolic ejection murmur, 1+ pedal pulses bilaterally Respiratory - Normal lung expansion, Normal respiratory effort, No respiratory distress, CTA bilaterally Gastrointestinal - NT / ND; +BS; No rebound or guarding Extremities - no calf tenderness bilaterally, no swelling Musculoskeletal - Normal inspection, normal ROM Skin -see pic from yesterd, essentially no change Neurological - Alert & oriented x3, diminished sensation left foot Psychological - Appropriate affect Objective Data Active Medications Acetaminophen (Acetaminophen 325 Mg Tablet) 650 mg PO Q6H PRN PRN Reason: Pain, Mild (Pain Scale 1-3) Last Admin: 03/10/23 08:09 Dose: 650 mg Documented By: REHANA Amiodarone HCl (Amiodarone Hcl 200 Mg Tablet) 400 mg PO BID [facility] Last Admin: 03/10/23 21:14 Dose: 400 mg Documented By: JJ Ascorbic Acid (Ascorbic Acid 500 Mg Tablet) 500 mg PO DAILY [facility] Last Admin: 03/10/23 08:09 Dose: 500 mg Documented By: REHANA Aspirin (Aspirin Enteric Coated 81 Mg Tablet.Dr) 81 mg PO DAILY [facility] Calcium Carbonate (Calcium Carbonate 500 Mg Tablet) 500 mg PO DAILY [facility] Last Admin: 03/10/23 07:45 Dose: Not Given Documented By: REHANA Non-Admin Reason: Patient Refused Clopidogrel Bisulfate (Clopidogrel Bisulfate 75 Mg Tablet) 75 mg PO DAILY [facility] Dextrose (Dextrose 50 % 25 Gm/50 Ml Syringe) 25 gm IVPUSH Q15M PRN; Protocol PRN Reason: per Hypoglycemia Standing Ord. Docusate Sodium (Docusate Sodium 100 Mg Capsule) 100 mg PO DAILY PRN PRN Reason: Constipation Furosemide (Furosemide 40 Mg Tablet) 40 mg PO DAILY [facility]; Protocol Last Admin: 03/10/23 08:09 Dose: 40 mg Documented By: REHANA Glucose (Glucose Gel 15 Gm Gel..Gram.) 15 gm PO Q15M PRN; Protocol PRN Reason: per Hypoglycemia Standing Ord. Guaifenesin (Guaifenesin 200 Mg/10 Ml 10 Ml Liquid) 10 ml PO Q4H PRN PRN Reason: Cough Guaifenesin/Dextromethorphan (Guaifenesin Dm 100/10/5 Ml 5 Ml Syrup) 5 ml PO Q4H PRN PRN Reason: Cough Heparin Sodium (Porcine) (Heparin Sodium,Porcine 5,000 Unit/Ml Vial) 5,000 unit SUBCUT BID [facility] Last Admin: 03/11/23 09:44 Dose: Not Given Documented By: TALITA Non-Admin Reason: Off Unit: Surgery Piperacillin Sod/Tazobactam (Sod 2.25 gm/ Sodium Chloride) 50 mls @ 100 mls/hr IV Q6H [facility] Last Admin: 03/11/23 06:09 Dose: 50 mls/hr Documented By: MERISSA Vancomycin HCl 750 mg/ Sodium (Chloride) 265 mls @ 265 mls/hr IV Q24H [facility] Last Infusion: 03/10/23 17:31 Dose: Infused Documented By: REHANA Sodium Chloride (Ns) 1,000 mls @ 100 mls/hr IVCONT .Q10H [facility] Last Admin: 03/11/23 07:15 Dose: 100 mls/hr Documented By: YOAV Insulin Human Lispro (Insulin Lispro 100 Unit/Ml 3 Ml Vial) 0 unit SUBCUT QIDACHS [facility]; Protocol Last Admin: 03/11/23 09:44 Dose: Not Given Documented By: TALITA Non-Charbel Reason: Off Unit: Surgery Lidocaine (Lidocaine 4 % Patch Adh..Patch) 0.5 patch TRANSDERMA DAILY [facility]; Protocol Last Admin: 03/10/23 17:10 Dose: 0.5 patch Documented By: REHANA Metoprolol Succinate (Metoprolol Succinate Er 50 Mg Tab.Er.24h) 50 mg PO DAILY [facility]; Protocol Morphine Sulfate (Morphine Sulfate 4 Mg/Ml Cartridge) 4 mg IVPUSH Q2H PRN; Protocol PRN Reason: Pain, Severe (Pain Scale 7-10) Multivitamins/Vitamin C (Multivitamin Tablet) 1 tab PO DAILY [facility] Last Admin: 03/10/23 08:09 Dose: 1 tab Documented By: REHANA Nifedipine (Nifedipine Er 60 Mg Tab.Er.24) 120 mg PO BEDTIME [facility] Last Admin: 03/10/23 21:14 Dose: 120 mg Documented By: JJ Ondansetron HCl (Ondansetron Hcl 4 Mg/2 Ml Vial) 4 mg IVPUSH Q8H PRN PRN Reason: Nausea and Vomiting Oxycodone HCl (Oxycodone Hcl Immed Release 5 Mg Tablet) 5 mg PO Q4H PRN PRN Reason: Pain, Moderate(Pain Scale 4-6) Pharmacy Consult (Consult Rx Vancomycin Dosing) 1 each MISCELLANE DAILY PRN PRN Reason: Consult order Sodium Chloride (0.9 % Sodium Chloride Flush 3 Ml Syringe) 3 ml IVFLUSH QSHIFT [facility] Last Admin: 03/11/23 09:44 Dose: Not Given Documented By: TALITA Non-Admin Reason: Off Unit: Surgery Vitamin D (Cholecalciferol (Vitamin D3) 25 Mcg Tablet) 25 mcg PO DAILY [facility] Last Admin: 03/10/23 08:09 Dose: 25 mcg Documented By: REHANA Labs 03/08/23 08:49 03/12/23 06:59 Labs: Laboratory Results - last 24 hr 03/10/23 03/10/23 03/10/23 11:08 15:31 19:27 POC Glucose 229 H 92 157 H 03/11/23 06:45 POC Glucose 96 Assessment and Plan (1) Pneumonia: Status: Acute (2) Cellulitis: Status: Acute Plan 82-year-old male with history of hypertension, [id number] type 2 diabetes, CKD stage 3, history SVT, aortic stenosis, history osteomyelitis R great toe, and diabetic polyneuropathy admitted for diabetic foot infection with sepsis and question of osteomyelitis. #Infected stage 2 foot ulcer with sepsis with abscess, MRI shows abscess but no osteomylitis, Surgery did I and D on 03/05. Continue Zosyn+Vanco, monitor renal function, ID recommends IV Abx x 6 weeks,, cultures so far negative. May possible need ampuation. #PAD--Angiogram today #Pneumonia --same Abx as above, doing well off O2 #Non-insulin dependent type 2 diabetes- with hyperglycemia -last A1c 6.7% -POC glucose -diabetic diet -humalog on sliding scale #HTN--BP's on high side, increase metoprolol to 50, Nifedpine has been increase from 90 to 120 earlier #History SVT--presently in sinus rhythm -continue bb, ccb #CKD stage 3 -renal function baseline, nephrology following DVT prophylaxis- heparin Full code Pt requires inpatient stay for management of infected stage II diabetic foot ulcer with sepsis, need for intervention . Time Spent With Patient Time: Total time managing care of this patient today ____ minutes. Quality Stroke Does the patient have a stroke diagnosis?: No VTE Prior VTE?: No VTE Risk Level:: Medical - moderate - high VTE Device Contraindication: Treatment Not Indicated VTE Drug Contraindication: N/A - Med Ordered
[2023-03-11 12:00] LABS: Glucose, Whole Blood 159 mg/dL (60-115)
[2023-03-11] MEDS: Insulin Lispro 100 UNIT/ML 3 ML VIAL SUBCUT (12:33)
[2023-03-11] MEDS: Lidocaine 4 % Patch ADH..PATCH 0.5 PATCH TRANSDERMA (12:34)
[2023-03-11] MEDS: Metoprolol Succinate ER 50 MG TAB.ER.24H PO (12:34)
[2023-03-11] MEDS: Amiodarone HCL 200 MG TABLET 400 MG PO ×2 (12:35→20:36)
[2023-03-11] MEDS: Furosemide 40 MG TABLET PO (12:35)
--- NOTE | 2023-03-11 12:47 | MHC.CM.PN ---
EMR reviewed. Per MD rounds pt not medically cleared for dc at this time, angiogram today, PICC placement tomorrow, dc 1-2 days. [facility] and [facility] updated. CM will continue to follow.
[2023-03-11 15:20] LABS: Vancomycin Trough 18.6 mcg/mL (10.0-20.0)
[2023-03-11 15:25] LABS: Creatinine Clr Calc Pharmacy 27.1; Estimated Glomerular Filt Rate 22
--- NOTE | 2023-03-11 15:41 | HE.PHANOTE ---
RE: VANCO Patients renal function is worsening daily. Trough is getting higher, predicted trough right now is 19, will decrease dose to 500 mg Q24H for a dose or two to take the trough down to see if renal function improves. Random tomorrow 03/12 @1400
[2023-03-11] MEDS: vancomycin HCL 500 MG in 0.9 % Sodium Chloride 100 ML 110 MG IV (16:26)
[2023-03-11 16:39] LABS: Glucose, Whole Blood 126 mg/dL (60-115)
--- NOTE | 2023-03-11 16:40 | PC.NURSE ---
This RN and Cailin Guzmán RN were requested to apply a pressure dressing to R groin. Pt underwent a L leg angiogram this am with Dr. Jewell. Pt was noted to have a sanguineous soaked 2x2 dressing under a tegaderm with a moderately sized clot at the R groin. Dressing removed, oozing was noted at the insertion site,and pressure was held for 5 minutes. oozing continues despite pressure held. 4x4 gauze pressure dressing applied. discussed frequent dressing checks with primary RN and inform Dr Jewell if oozing increases/ continues.. no staining noted at time of this RN departure. Pt is A+Ox3 resp even and unlabored skin is p/w/d denies complaint
--- NOTE | 2023-03-11 18:40 | PC.NURSE ---
Pt off unit in am for procedure arrived back to unit approximately 1200. A&OX4 speech clear. Right groin dressing with gauze almost completely covered in blood under tegaderm. Area soft no swelling or pain noted. Per staff on return patient is to remain with legs straight today only HOB to 30 degrees. +pp to right left weaker. LSCTA denies SOB or CP. BS+X4 abdomen soft non-tender denies nausea/vomiting. Denies pain. Voiding without difficulty in urinal. Approximately 1515 dressing to right groin with dressing saturated leaking from site. Gauze applied pressure held. Dr Leary notified on unit to see patient. Pt returned to flat position. VSS. fuel management handler's to bedside redressed site after applying pressure with pressure dressing. Patient flat until 1830 then HOB elevated slowly. No further bleeding noted from site. Dressing changed per wound RN order to left foot elevated on pillows. IV antibiotics given per order. Will continue to monitor and report changes
[2023-03-11 20:27] LABS: Glucose, Whole Blood 123 mg/dL (60-115)
[2023-03-11] MEDS: NIFEdipine ER 60 MG TAB.ER.24 120 MG PO (20:36)
[2023-03-12] MEDS: 0.9 % Sodium Chloride 1,000 ML 100 ML IVCONT ×3 (01:17→21:48)
[2023-03-12 03:28] LABS: Legionella Ag Urine Not Detected (Not Detected)
[2023-03-12 04:36] VITALS: BP 141/65; PULSE 60; RESP 18; TEMP 36.2; O2SAT 94
[2023-03-12 07:33] VITALS: BP 148/70; PULSE 67; RESP 20; TEMP 36.5; O2SAT 94
[2023-03-12 07:43] LABS: Glucose, Whole Blood 128 mg/dL (60-115)
[2023-03-12 08:07] LABS: Creatinine Clr Calc Pharmacy 27.5; Estimated Glomerular Filt Rate 22
[2023-03-12] MEDS: Ascorbic Acid 500 MG TABLET PO (09:51)
[2023-03-12] MEDS: Multivitamin TABLET 1 TAB PO (09:52)
[2023-03-12] MEDS: Metoprolol Succinate ER 50 MG TAB.ER.24H PO (09:52)
[2023-03-12] MEDS: Cholecalciferol (Vitamin D3) 25 MCG TABLET PO (09:52)
[2023-03-12] MEDS: Aspirin Enteric Coated 81 MG TABLET.DR PO (09:53)
[2023-03-12] MEDS: Furosemide 40 MG TABLET PO (09:54)
[2023-03-12] MEDS: Amiodarone HCL 200 MG TABLET 400 MG PO ×2 (09:54→21:45)
[2023-03-12] MEDS: Lidocaine 4 % Patch ADH..PATCH 0.5 PATCH TRANSDERMA (09:55)
--- NOTE | 2023-03-12 09:55 | HO.PM.IMPN ---
Subjective Subjective Date of Service: 03/12/23 Interval History: No new issues, no bleeding at angio site, Physical Exam Vital Signs: Vital Signs: Last Vital Signs Temp 97.7 F 03/12/23 07:33 Pulse 67 03/12/23 07:33 Resp 20 03/12/23 07:33 BP 148/70 H 03/12/23 07:33 Pulse Ox 94 03/12/23 07:33 O2 Del Method Room Air 03/12/23 07:33 O2 Flow Rate 1 03/12/23 04:36 FiO2 70 03/05/23 07:51 BMI result Body Mass Index 29.5 Const: Other: Constitutional - Awake and Alert, No apparent distress Eyes - PERRLA, EOMI Cardiovascular - S1S2, RRR, IV/ systolic ejection murmur, 1+ pedal pulses bilaterally Respiratory - Normal lung expansion, Normal respiratory effort, No respiratory distress, CTA bilaterally Gastrointestinal - NT / ND; +BS; No rebound or guarding Extremities - no calf tenderness bilaterally, no swelling Musculoskeletal - Normal inspection, normal ROM Skin -see pic from yesterd, essentially no change, no bleeding at angio site Neurological - Alert & oriented x3, diminished sensation left foot Psychological - Appropriate affect Objective Data Active Medications Acetaminophen (Acetaminophen 325 Mg Tablet) 650 mg PO Q6H PRN PRN Reason: Pain, Mild (Pain Scale 1-3) Last Admin: 03/10/23 08:09 Dose: 650 mg Documented By: REHANA Amiodarone HCl (Amiodarone Hcl 200 Mg Tablet) 400 mg PO BID [facility] Last Admin: 03/11/23 20:36 Dose: 400 mg Documented By: RIA Ascorbic Acid (Ascorbic Acid 500 Mg Tablet) 500 mg PO DAILY [facility] Last Admin: 03/11/23 12:36 Dose: Not Given Documented By: TALITA Non-Admin Reason: Patient Refused Aspirin (Aspirin Enteric Coated 81 Mg Tablet.) 81 mg PO DAILY [facility] Calcium Carbonate (Calcium Carbonate 500 Mg Tablet) 500 mg PO DAILY [facility] Last Admin: 03/11/23 12:37 Dose: Not Given Documented By: TALITA Non-Admin Reason: Patient Refused Clopidogrel Bisulfate (Clopidogrel Bisulfate 75 Mg Tablet) 75 mg PO DAILY [facility] Dextrose (Dextrose 50 % 25 Gm/50 Ml Syringe) 25 gm IVPUSH Q15M PRN; Protocol PRN Reason: per Hypoglycemia Standing Ord. Docusate Sodium (Docusate Sodium 100 Mg Capsule) 100 mg PO DAILY PRN PRN Reason: Constipation Furosemide (Furosemide 40 Mg Tablet) 40 mg PO DAILY [facility]; Protocol Last Admin: 03/11/23 12:35 Dose: 40 mg Documented By: TALITA Glucose (Glucose Gel 15 Gm Gel..Gram.) 15 gm PO Q15M PRN; Protocol PRN Reason: per Hypoglycemia Standing Ord. Guaifenesin (Guaifenesin 200 Mg/10 Ml 10 Ml Liquid) 10 ml PO Q4H PRN PRN Reason: Cough Guaifenesin/Dextromethorphan (Guaifenesin Dm 100/10/5 Ml 5 Ml Syrup) 5 ml PO Q4H PRN PRN Reason: Cough Heparin Sodium (Porcine) (Heparin Sodium,Porcine 5,000 Unit/Ml Vial) 5,000 unit SUBCUT BID [facility] Last Admin: 03/11/23 20:35 Dose: Not Given Documented By: RIA Non-Admin Reason: excessive bleeding to surgical site Piperacillin Sod/Tazobactam (Sod 2.25 gm/ Sodium Chloride) 50 mls @ 100 mls/hr IV Q6H [facility] Last Infusion: 03/12/23 06:43 Dose: Infused Documented By: RIA Sodium Chloride (Ns) 1,000 mls @ 100 mls/hr IVCONT .Q10H [facility] Last Infusion: 03/12/23 04:36 Dose: 100 mls/hr Documented By: RIA Vancomycin HCl 500 mg/ Sodium (Chloride) 110 mls @ 110 mls/hr IV Q24H [facility] Last Infusion: 03/11/23 17:31 Dose: Infused Documented By: TALITA Insulin Human Lispro (Insulin Lispro 100 Unit/Ml 3 Ml Vial) 0 unit SUBCUT QIDACHS [facility]; Protocol Last Admin: 03/12/23 07:45 Dose: Not Given Documented By: SILVESTRE Non-Admin Reason: No Insulin Coverage Lidocaine (Lidocaine 4 % Patch Adh..Patch) 0.5 patch TRANSDERMA DAILY [facility]; Protocol Last Admin: 03/11/23 12:34 Dose: 0.5 patch Documented By: TALITA Metoprolol Succinate (Metoprolol Succinate Er 50 Mg Tab.Er.24h) 50 mg PO DAILY [facility]; Protocol Last Admin: 03/11/23 12:34 Dose: 50 mg Documented By: TALITA Morphine Sulfate (Morphine Sulfate 4 Mg/Ml Cartridge) 4 mg IVPUSH Q2H PRN; Protocol PRN Reason: Pain, Severe (Pain Scale 7-10) Multivitamins/Vitamin C (Multivitamin Tablet) 1 tab PO DAILY [facility] Last Admin: 03/11/23 12:37 Dose: Not Given Documented By: TALITA Non-Admin Reason: Patient Refused Nifedipine (Nifedipine Er 60 Mg Tab.Er.24) 120 mg PO BEDTIME [facility] Last Admin: 03/11/23 20:36 Dose: 120 mg Documented By: RIA Ondansetron HCl (Ondansetron Hcl 4 Mg/2 Ml Vial) 4 mg IVPUSH Q8H PRN PRN Reason: Nausea and Vomiting Oxycodone HCl (Oxycodone Hcl Immed Release 5 Mg Tablet) 5 mg PO Q4H PRN PRN Reason: Pain, Moderate(Pain Scale 4-6) Pharmacy Consult (Consult Rx Vancomycin Dosing) 1 each MISCELLANE DAILY PRN PRN Reason: Consult order Sodium Chloride (0.9 % Sodium Chloride Flush 3 Ml Syringe) 3 ml IVFLUSH QSHIFT [facility] Last Admin: 03/11/23 21:49 Dose: Not Given Documented By: RIA Non-Admin Reason: IV Running Vitamin D (Cholecalciferol (Vitamin D3) 25 Mcg Tablet) 25 mcg PO DAILY [facility] Last Admin: 03/11/23 12:37 Dose: Not Given Documented By: TALITA Non-Admin Reason: Patient Refused Labs 03/08/23 08:49 03/12/23 06:59 Labs: Laboratory Results - last 24 hr 03/04/23 03/11/23 03/11/23 22:30 11:53 14:04 Hold Purple Top Estim Creat Clear Calc 27.1 Estimated GFR 22 POC Glucose 159 H Vancomycin Trough 18.6 Ur L.pneumophila Ag Not Detected 03/11/23 03/11/23 03/12/23 16:36 20:23 06:59 Hold Purple Top SEE NOTE Estim Creat Clear Calc 27.5 Estimated GFR 22 POC Glucose 126 H 123 H Vancomycin Trough Ur L.pneumophila Ag 03/12/23 07:36 Hold Purple Top Estim Creat Clear Calc Estimated GFR POC Glucose 128 H Vancomycin Trough Ur L.pneumophila Ag Assessment and Plan (1) Pneumonia: Status: Acute (2) Cellulitis: Status: Acute Plan 82-year-old male with history of hypertension, [id number] type 2 diabetes, CKD stage 3, history SVT, aortic stenosis, history osteomyelitis R great toe, and diabetic polyneuropathy admitted for diabetic foot infection with sepsis and question of osteomyelitis. #Infected stage 2 foot ulcer with sepsis with abscess, MRI shows abscess but no osteomylitis, Surgery did I and D on 03/05. Continue Zosyn+Vanco, monitor renal function, ID recommends IV Abx x 6 weeks,, cultures so far negative. May possible need ampuation. Patient wondering if there is alternative to IV antibiotics, will discuss with ID #PAD--Angiogram of left lower extremity 03/11, see vascular note #Pneumonia --same Abx as above, doing well off O2 #Non-insulin dependent type 2 diabetes- with hyperglycemia -last A1c 6.7% -POC glucose -diabetic diet -humalog on sliding scale #HTN--BP's on high side, increase metoprolol to 50, Nifedpine has been increase from 90 to 120 earlier #History SVT--presently in sinus rhythm -continue bb, ccb #CKD stage 3 -renal function baseline, nephrology following DVT prophylaxis- heparin Full code Pt requires inpatient stay for management of infected stage II diabetic foot ulcer with sepsis, need for intervention . Time Spent With Patient Time: Total time managing care of this patient today ____ minutes. Quality Stroke Does the patient have a stroke diagnosis?: No VTE Prior VTE?: No VTE Risk Level:: Medical - moderate - high VTE Device Contraindication: Treatment Not Indicated VTE Drug Contraindication: N/A - Med Ordered
[2023-03-12 10:51] VITALS: BP 134/53; PULSE 61; RESP 20; TEMP 36.6; O2SAT 93
[2023-03-12 11:02] LABS: Hematocrit 32.2 % (42.0-52.0); Hemoglobin 10.5 g/dl (14.0-18.0); Mean Corpuscular HGB Conc 32.6 g/dl (31.0-36.0); Mean Corpuscular Hemoglobin 27.3 pg (27.0-33.0); Mean Corpuscular Volume 83.9 fL (80.0-98.0); Mean Platelet Volume 8.9 fL (9.4-12.4); Platelet Count 430 X10*3/uL (160-400); Red Blood Count 3.84 X10*6/uL (4.60-5.80); Red Cell Distribution Width 15.6 % (11.0-16.0); White Blood Count 13.1 X10*3/uL (4.8-10.8)
--- NOTE | 2023-03-12 11:24 | PC.NURSE ---
@ ~9:20a this nurse was alerted that pt surgical site was bleeding. Pt had moderate to minimal oozing from surgical site over R femoral artery site. Pressure dressing applied utilizing circumferential NEHEMIAH bandage around pelvis with bulky dressing and towels. Bleeding has since subsided.Plavix and heparin held. Vascular and Internal medicine provider aware. KL
[2023-03-12 11:32] LABS: Glucose, Whole Blood 180 mg/dL (60-115)
[2023-03-12] MEDS: Insulin Lispro 100 UNIT/ML 3 ML VIAL SUBCUT ×2 (12:10→21:45)
[2023-03-12 14:16] LABS: Vancomycin Random 18.2 mcg/mL (15-20)
--- NOTE | 2023-03-12 14:19 | PC.NURSE ---
Addendum entered by Gonzales Brady RN 03/12/23 14:21: [phone] Original Note: Per Patient Advocate (Experience) pt would like all medical information to be funnelled through [facility] as he has a hard time remembering certain details.
--- NOTE | 2023-03-12 14:27 | P.PNVS_ITS ---
Subjective Subjective Date of Service: 03/12/23 Patient reports: no new complaints Interval history: 82-year-old gentleman status post endovascular intervention. He appears to be doing relatively well postop. He E did have some oozing through the puncture site. Is controlled with a pressure dressing in appears to be doing better. He now presents for follow-up. Continues to have local dressings on the left lower extremity. Physical Exam Vital Signs: Vital Signs: Last Vital Signs Temp 97.8 F 03/12/23 10:51 Pulse 61 03/12/23 10:51 Resp 20 03/12/23 10:51 BP 134/53 L 03/12/23 10:51 Pulse Ox 93 03/12/23 10:51 O2 Del Method Room Air 03/12/23 10:51 O2 Flow Rate 1 03/12/23 04:36 FiO2 70 03/05/23 07:51 BMI result Body Mass Index 29.5 Const: General: cooperative, healthy appearing and comfortable Or ientation/consciousness: oriented to person, oriented to place and oriented to time HEENT: Head: Yes normal to inspection Neck: Neck: Yes normal visual inspection Carotids: no bruits Chest: Chest palpation & inspection: normal inspection of the chest Resp: Effort & Inspection: normal respiratory effort and able to speak in complete sentences Auscultation: clear to auscultation bilaterally, no crackles, no rales, no rhonchi and no wheezes Cardio: Rate: regular rate Rhythm: regular rhythm Heart sounds: S1 normal heart sound present and S2 normal heart sound present Bruits: no ca rotid bruits Peripheral pulses: Peripheral pulses 2+ throughout GI: Inspection: Yes normal to inspection Skin: Other: Left foot great to webspace open ulceration. In addition plantar aspect packed. Wounds: no wounds Hair: normal Neuro: General: oriented to person, oriented to place and oriented to time Cranial nerves: Yes CN's II-XII intact bilaterally and Yes Normal hearing present Cognition (Neuro): normal cognition Motor exam (neuro): 5/5 motor strength present throughout Extrem: Other: venous exam: No significant superficial varicosities or spider telangiectasias, minimal edema General: No clubbing, No cyanosis and No edema Psych: Appearance: grossly normal Mental Status: mental status grossly normal Speech and movement: Normal speech and movement present Progress Note: A&P Assessment and plan (1) PAD (peripheral artery disease): Status: Acute Assessment and Plan: In short patient has done well status post endovascular intervention. He will require aspirin and Plavix for 6 months. In terms of the wound the concern here is that he will most likely require transmetatarsal amputation. Would like to try to manage this as conservatively as possible for now. Will continue to follow with you. In addition right groin appears to be doing much better. Thank you for allowing us to assist in his care. If there are questions or concerns please do not hesitate to contact us Time Spent With Patient Time: Total time managing care of this patient today ____ minutes. Procedures Date of Service Date of Service: 03/12/23 Quality Stroke Does the patient have a stroke diagnosis?: No VTE Prior VTE?: No VTE Risk Level:: Medical - moderate - high VTE Device Contraindication: Treatment Not Indicated VTE Drug Contraindication: N/A - Med Ordered
[2023-03-12 16:00] VITALS: BP 143/64; PULSE 56; RESP 20; TEMP 36.2; O2SAT 98
[2023-03-12 16:01] LABS: Prothrombin Time 12.4 SEC (11.1-13.3)
[2023-03-12] MEDS: vancomycin HCL 500 MG in 0.9 % Sodium Chloride 100 ML 110 MG IV (16:25)
[2023-03-12 16:30] LABS: Glucose, Whole Blood 120 mg/dL (60-115)
[2023-03-12 19:38] LABS: Glucose, Whole Blood 179 mg/dL (60-115)
[2023-03-12 19:46] VITALS: BP 154/64; PULSE 65; RESP 20; TEMP 36.4; O2SAT 94
[2023-03-12] MEDS: NIFEdipine ER 60 MG TAB.ER.24 120 MG PO (21:44)
[2023-03-12 23:40] VITALS: BP 164/78; PULSE 59; RESP 18; TEMP 37.1; O2SAT 94
[2023-03-13 04:00] VITALS: BP 155/74; PULSE 61; RESP 18; TEMP 37.1; O2SAT 96
[2023-03-13 07:25] LABS: Creatinine Clr Calc Pharmacy 27.8; Estimated Glomerular Filt Rate 23
[2023-03-13 08:00] VITALS: BP 153/70; PULSE 66; RESP 18; TEMP 36.1; O2SAT 95
[2023-03-13] MEDS: Piperacillin Sodium/Tazobactam 2.25 GM in 0.9 % Sodium Chloride 50 ML IV (08:02)
[2023-03-13] MEDS: Metoprolol Succinate ER 50 MG TAB.ER.24H PO (08:02)
[2023-03-13] MEDS: Amiodarone HCL 200 MG TABLET 400 MG PO ×2 (08:03→21:25)
[2023-03-13] MEDS: Furosemide 40 MG TABLET PO (08:03)
[2023-03-13] MEDS: Aspirin Enteric Coated 81 MG TABLET.DR PO (08:03)
[2023-03-13] MEDS: Heparin Sodium,Porcine 5,000 UNIT/ML VIAL 5000 UNIT SUBCUT (08:04)
[2023-03-13] MEDS: Ascorbic Acid 500 MG TABLET PO (08:04)
[2023-03-13] MEDS: Multivitamin TABLET 1 TAB PO (08:04)
[2023-03-13] MEDS: Cholecalciferol (Vitamin D3) 25 MCG TABLET PO (08:04)
--- NOTE | 2023-03-13 09:55 | P.PNNP_ITS ---
Subjective Subjective Date of Service: 03/13/23 Interval history: seen and examined no complaints Physical Exam 2 Vital Signs: Vital Signs: Last Vital Signs Temp 97.0 F 03/13/23 08:00 Pulse 66 03/13/23 08:00 Resp 18 03/13/23 08:00 BP 153/70 H 03/13/23 08:00 Pulse Ox 95 03/13/23 08:00 O2 Del Method Room Air 03/13/23 08:00 O2 Flow Rate 1 03/12/23 04:36 FiO2 70 03/05/23 07:51 BMI result Body Mass Index 29.5 Const: General: alert and awake HEENT: Head: Yes normocephalic and Yes atraumatic Neck: Neck: Yes supple Resp: Auscultation: clear to auscultation bilaterally Cardio: Heart sounds: S1 normal heart sound present and S2 normal heart sound present GI: Palpation (GI): Soft to palpation and nontender Objective Data Labs 03/12/23 10:54 03/13/23 06:55 Labs: Laboratory Results - last 24 hr 03/12/23 03/12/23 03/12/23 10:54 10:56 13:55 WBC 13.1 H RBC 3.84 L Hgb 10.5 L Hct 32.2 L MCV 83.9 MCH 27.3 MCHC 32.6 RDW 15.6 Plt Count 430 H MPV 8.9 L Absolute Nucleated RBC 0.000 Nucleated RBC % (auto) 0.0 Hold Purple Top PT INR Creatinine Estim Creat Clear Calc Estimated GFR POC Glucose 180 H Random Vancomycin 18.2 Blood Type B Positive Antibody Screen NEGATIVE 03/12/23 03/12/23 03/12/23 15:23 16:27 18:55 WBC RBC Hgb Hct MCV MCH MCHC RDW Plt Count MPV Absolute Nucleated RBC Nucleated RBC % (auto) Hold Purple Top PT 12.4 INR 1.0 Creatinine Estim Creat Clear Calc Estimated GFR POC Glucose 120 H 179 H Random Vancomycin Blood Type Antibody Screen 03/13/23 03/13/23 06:55 07:05 WBC RBC Hgb Hct MCV MCH MCHC RDW Plt Count MPV Absolute Nucleated RBC Nucleated RBC % (auto) Hold Purple Top SEE NOTE PT INR Creatinine 2.70 H Estim Creat Clear Calc 27.8 Estimated GFR 23 POC Glucose Random Vancomycin Blood Type Antibody Screen Microbiology Microbiology Results: Microbiology 03/04/23 11:15 Blood - Venous Blood Culture - Final No growth after 5 days. 03/04/23 10:35 Blood - Venous Blood Culture - Final No growth after 5 days. Procedures Date of Service Date of Service: 03/13/23 Assessment & Plan Assessment and plan (1) CKD (chronic kidney disease) stage 4, GFR 15-29 ml/min: Status: Acute (2) PAD (peripheral artery disease): Status: Acute Plan stable kidney function known severe CKD due to DM/HTN followed by Bobo Hernández at risk for CI-AYAN REC avoid ACEi/ARB increase tubular flow rate if to get more IV contrast follow kidney function and electrolytes Time Spent With Patient Time: Total time managing care of this patient today ____ minutes. Progress Note: Quality Stroke Does the patient have a stroke diagnosis?: No
--- NOTE | 2023-03-13 10:31 | P.PNIM_ITS ---
Subjective Subjective Date of Service: 03/14/23 Interval History: Being followed for diabetic foot infectionn, pneumonia and peripheral arterial disease s/p angio Physical Exam 2 Vital Signs: Vital Signs: Last Vital Signs Temp 97.0 F 03/13/23 08:00 Pulse 66 03/13/23 08:00 Resp 18 03/13/23 08:00 BP 153/70 H 03/13/23 08:00 Pulse Ox 95 03/13/23 08:00 O2 Del Method Room Air 03/13/23 08:00 O2 Flow Rate 1 03/12/23 04:36 FiO2 70 03/05/23 07:51 BMI result Body Mass Index 29.5 Const: Other: Constitutional - Awake and Alert, No apparent distress Eyes - PERRLA, EOMI Cardiovascular - S1S2, RRR, IV/ systolic ejection murmur, 1+ pedal pulses bilaterally Respiratory - Normal lung expansion, Normal respiratory effort, No respiratory distress, CTA bilaterally Gastrointestinal - NT / ND; +BS; No rebound or guarding Extremities - no calf tenderness bilaterally, no swelling Musculoskeletal - Normal inspection, normal ROM Skin -left foot ulcer dressing in place Neurological - Alert & oriented x3, diminished sensation left foot Psychological - Appropriate affect Objective Data Active Medications Acetaminophen (Acetaminophen 325 Mg Tablet) 650 mg PO Q6H PRN PRN Reason: Pain, Mild (Pain Scale 1-3) Last Admin: 03/10/23 08:09 Dose: 650 mg Documented By: REHANA Amiodarone HCl (Amiodarone Hcl 200 Mg Tablet) 400 mg PO BID [facility] Last Admin: 03/13/23 08:03 Dose: 400 mg Documented By: ARGENIS Ascorbic Acid (Ascorbic Acid 500 Mg Tablet) 500 mg PO DAILY [facility] Last Admin: 03/13/23 08:04 Dose: 500 mg Documented By: ARGENIS Aspirin (Aspirin Enteric Coated 81 Mg Tablet.) 81 mg PO DAILY [facility] Last Admin: 03/13/23 08:03 Dose: 81 mg Documented By: ARGENIS Calcium Carbonate (Calcium Carbonate 500 Mg Tablet) 500 mg PO DAILY [facility] Last Admin: 03/13/23 09:49 Dose: Not Given Documented By: ARGENIS Non-Admin Reason: Patient Refused Dextrose (Dextrose 50 % 25 Gm/50 Ml Syringe) 25 gm IVPUSH Q15M PRN; Protocol PRN Reason: per Hypoglycemia Standing Ord. Docusate Sodium (Docusate Sodium 100 Mg Capsule) 100 mg PO DAILY PRN PRN Reason: Constipation Furosemide (Furosemide 40 Mg Tablet) 40 mg PO DAILY [facility]; Protocol Last Admin: 03/13/23 08:03 Dose: 40 mg Documented By: ARGENIS Glucose (Glucose Gel 15 Gm Gel..Gram.) 15 gm PO Q15M PRN; Protocol PRN Reason: per Hypoglycemia Standing Ord. Guaifenesin (Guaifenesin 200 Mg/10 Ml 10 Ml Liquid) 10 ml PO Q4H PRN PRN Reason: Cough Guaifenesin/Dextromethorphan (Guaifenesin Dm 100/10/5 Ml 5 Ml Syrup) 5 ml PO Q4H PRN PRN Reason: Cough Heparin Sodium (Porcine) (Heparin Sodium,Porcine 5,000 Unit/Ml Vial) 5,000 unit SUBCUT BID [facility] Last Admin: 03/13/23 08:04 Dose: 5,000 unit Documented By: ARGENIS Vancomycin HCl 500 mg/ Sodium (Chloride) 110 mls @ 110 mls/hr IV Q24H [facility] Last Infusion: 03/12/23 17:32 Dose: Infused Documented By: SILVESTRE Piperacillin Sod/Tazobactam (Sod 2.25 gm/ Sodium Chloride) 50 mls @ 100 mls/hr IV Q6H [facility] Last Infusion: 03/13/23 08:51 Dose: Infused Documented By: ARGENIS Insulin Human Lispro (Insulin Lispro 100 Unit/Ml 3 Ml Vial) 0 unit SUBCUT QIDACHS [facility]; Protocol Last Admin: 03/13/23 08:09 Dose: Not Given Documented By: ARGENIS Non-Admin Reason: blood sugar was not checked before breakfast Lidocaine (Lidocaine 4 % Patch Adh..Patch) 0.5 patch TRANSDERMA DAILY [facility]; Protocol Last Admin: 03/12/23 09:55 Dose: 0.5 patch Documented By: SILVESTRE Metoprolol Succinate (Metoprolol Succinate Er 50 Mg Tab.Er.24h) 50 mg PO DAILY [facility]; Protocol Last Admin: 03/13/23 08:02 Dose: 50 mg Documented By: ARGENIS Morphine Sulfate (Morphine Sulfate 4 Mg/Ml Cartridge) 4 mg IVPUSH Q2H PRN; Protocol PRN Reason: Pain, Severe (Pain Scale 7-10) Multivitamins/Vitamin C (Multivitamin Tablet) 1 tab PO DAILY [facility] Last Admin: 03/13/23 08:04 Dose: 1 tab Documented By: ARGENIS Nifedipine (Nifedipine Er 60 Mg Tab.Er.24) 120 mg PO BEDTIME [facility] Last Admin: 03/12/23 21:44 Dose: 120 mg Documented By: MERISSA Ondansetron HCl (Ondansetron Hcl 4 Mg/2 Ml Vial) 4 mg IVPUSH Q8H PRN PRN Reason: Nausea and Vomiting Oxycodone HCl (Oxycodone Hcl Immed Release 5 Mg Tablet) 5 mg PO Q4H PRN PRN Reason: Pain, Moderate(Pain Scale 4-6) Pharmacy Consult (Consult Rx Vancomycin Dosing) 1 each MISCELLANE DAILY PRN PRN Reason: Consult order Sodium Chloride (0.9 % Sodium Chloride Flush 3 Ml Syringe) 3 ml IVFLUSH QSHIFT [facility] Last Admin: 03/13/23 08:09 Dose: 3 ml Documented By: ARGENIS Vitamin D (Cholecalciferol (Vitamin D3) 25 Mcg Tablet) 25 mcg PO DAILY [facility] Last Admin: 03/13/23 08:04 Dose: 25 mcg Documented By: ARGENIS Labs 03/12/23 10:54 03/13/23 06:55 Labs: Laboratory Results - last 24 hr 03/12/23 03/12/23 03/12/23 10:54 10:56 13:55 MCV 83.9 MCH 27.3 MCHC 32.6 RDW 15.6 Plt Count 430 H MPV 8.9 L Absolute Nucleated RBC 0.000 Nucleated RBC % (auto) 0.0 Hold Purple Top PT INR Estim Creat Clear Calc Estimated GFR POC Glucose 180 H Random Vancomycin 18.2 Blood Type B Positive Antibody Screen NEGATIVE 03/12/23 03/12/23 03/12/23 15:23 16:27 18:55 MCV MCH MCHC RDW Plt Count MPV Absolute Nucleated RBC Nucleated RBC % (auto) Hold Purple Top PT 12.4 INR 1.0 Estim Creat Clear Calc Estimated GFR POC Glucose 120 H 179 H Random Vancomycin Blood Type Antibody Screen 03/13/23 03/13/23 06:55 07:05 MCV MCH MCHC RDW Plt Count MPV Absolute Nucleated RBC Nucleated RBC % (auto) Hold Purple Top SEE NOTE PT INR Estim Creat Clear Calc 27.8 Estimated GFR 23 POC Glucose Random Vancomycin Blood Type Antibody Screen Assessment and Plan (1) Pneumonia: Status: Acute (2) Cellulitis: Status: Acute Plan 82-year-old male with history of hypertension, [id number] type 2 diabetes, CKD stage 3, history SVT, aortic stenosis, history osteomyelitis R great toe, and diabetic polyneuropathy admitted for diabetic foot infection with sepsis and question of osteomyelitis. #Infected stage 2 foot diabetic foot ulcer with sepsis with abscess, MRI shows abscess but no osteomylitis, Surgery did I and D on 03/05. He has been on Zosyn+Vanco since 03/04. ID [facility]. Cultures have been negative todate. Will stop Zosyn and Vanco and Add Meropenem 1 gram Q12 while in the hospital and change to Invanz 500 mg Q24 hrs. He may ultimately need amputaion. #PAD--Angiogram of left lower extremity 03/11, see vascular note #Oozing from angio site, pressure dressing per surgery and holding ASA, and Plavix at this time, follow CBC, there does not appear to be a pseudoaneurysm in the groin but should be monitored and considered for this #Pneumonia --same Abx as above, initially required O2 but now off and clincally recoverd #Non-insulin dependent type 2 diabetes- with hyperglycemia -last A1c 6.7% -POC glucose -diabetic diet -humalog on sliding scale #HTN--BP's on high side, increased metoprolol to 50, Nifedpine has been increase from 90 to 120 earlier #History SVT--presently in sinus rhythm -continue bb, ccb #Regurgitating food, history stricture--GI consult #CKD stage 3 -renal function baseline, nephrology following DVT prophylaxis- heparin Full code Pt requires inpatient stay for management of infected stage II diabetic foot ulcer with sepsis, need for intervention . Time Spent With Patient Time: Total time managing care of this patient today ____ minutes. Quality Stroke Does the patient have a stroke diagnosis?: No VTE Prior VTE?: No VTE Risk Level:: Medical - moderate - high VTE Device Contraindication: Treatment Not Indicated VTE Drug Contraindication: N/A - Med Ordered
[2023-03-13 11:28] LABS: Glucose, Whole Blood 166 mg/dL (60-115)
[2023-03-13 11:56] VITALS: BP 177/79; PULSE 62; RESP 18; TEMP 37; O2SAT 95
--- NOTE | 2023-03-13 13:06 | HO.VASCPN ---
Subjective Subjective Date of Service: 03/13/23 Patient reports: no new complaints Interval history: Very pleasant 82-year-old gentleman presents for follow-up regarding angiogram. He had undergone endovascular intervention through a right groin puncture. He has persistent oozing from the right groin. He has required several pressure dressings over the last 2 days. He now presents for follow-up. Physical Exam Vital Signs: Vital Signs: Last Vital Signs Temp 98.6 F 03/13/23 11:56 Pulse 62 03/13/23 11:56 Resp 18 03/13/23 11:56 BP 177/79 H 03/13/23 11:56 Pulse Ox 95 03/13/23 11:56 O2 Del Method Room Air 03/13/23 11:56 O2 Flow Rate 1 03/12/23 04:36 FiO2 70 03/05/23 07:51 BMI result Body Mass Index 29.5 Const: General: cooperative, healthy appearing and no acute distress Orientation/consciousness: oriented to person, oriented to place and oriented to time HEENT: Head: Yes normal to inspection Neck: Carotids: no bruits Chest: Chest palpation & inspection: normal inspection of the chest Resp: Effort & Inspection: normal respiratory effort and able to speak in complete sentences Auscultation: clear to auscultation bilaterally Cardio: Rate: regular rate Heart sounds: S1 normal heart sound present and S2 normal heart sound present GI: Inspection: Yes normal to inspection Skin: Other: Right groin persistent slow ooze. Pressure dressing applied General skin exam: no rashes or lesions noted Wounds: no wounds Neuro: General: oriented to person, oriented to place, oriented to time and CN's II-XI intact bilaterally Extrem: General: Yes normal to inspection, Yes full ROM and Yes no clubbing, cyanosis or edema Psych: Appearance: grossly normal and well kempt Speech and movement: Normal speech and movement present Affect: normal affect Progress Note: A&P Assessment and plan (1) PAD (peripheral artery disease): Status: Acute Assessment and Plan: In short patient has persistent bleeding from the right groin. It does not appear to be in active arterial bleed. He has an element of chronic kidney disease in addition he was loaded with 650 mg of aspirin and 300 mg Plavix. I do believe that this should resolve on its own. Will hold all anticoagulation. Would hold off on catheter placement for now. Would like to observe him through the weekend. We will closely follow this patient with you. Thank you for allowing us to assist in his care Time Spent With Patient Time: Total time managing care of this patient today ____ minutes. Procedures Date of Service Date of Service: 03/13/23 Quality Stroke Does the patient have a stroke diagnosis?: No VTE Prior VTE?: No VTE Risk Level:: Medical - moderate - high VTE Device Contraindication: Treatment Not Indicated VTE Drug Contraindication: N/A - Med Ordered
--- NOTE | 2023-03-13 13:59 | MHC.CM.PN ---
EMR reviewed. Per MD rounds pt not medically cleared for DC. Likely dc on Thursday, home with wound care and IV abx. Per MD, will need [place] cath. CM will continue to follow.
[2023-03-13 15:38] VITALS: BP 171/78; PULSE 70; RESP 20; TEMP 35.9; O2SAT 96
[2023-03-13 15:53] LABS: Glucose, Whole Blood 133 mg/dL (60-115)
--- NOTE | 2023-03-13 16:17 | MHC.SL.SWA ---
Speech Pathologist Impression: Esophageal dysphagia Risk of Aspiration Due to: History of Pneumonia Dysphasia Diet Status: REG/THIN Liquid Consistency and Strategies for Safe Swallow: Liquid Intake Recommendation: Thin Liquid Intake Strategies: Small Sips Solid Food Consistency: Dietary Recommendations: Regular Additional Modifications to Solid Foods: Pt seen for bedside dysphagia evaluation. [facility] Pt consumed dry frank crackers and sips of water, with no overt s/s of aspiration and complete oral clearance. Oral and pharyngeal phase of swallow deemed to be WFL. Pt reports expectoration of foam and at times bits of food. He says that he does not notice having more trouble with specific foods and that this occurs at random. Per MD, pt has hx regurgitating food and esophageal stricture. We discussed safe eating behaviors given pt's complaints which are consistent w/esophageal phase dysphagia- upright 90 degree position during meal and for at least 45 minutes afterwards, small bites/sips, alternate bites/sips, avoid eating for at least 60-90 minutes before going to sleep or laying down. Pt reports he eats small portions frequently throughout the day. Recommend pt continue on REGULAR texture diet with THIN liquids, as pt reports being able to self-select appropriate foods. Pills WHOLE in LIQUID. PARAOPTOMETRIC to f/u 1x. Oral Medication Intake: Whole with Liquid Please contact the pharmacy regarding appropriate crushable or liquid drug formulations that are available whenever modified delivery is recommended. Compensatory Strategies and Precautions to be Taken for Safe Swallow: Sitting Upright (90 deg) Small Bites and Sips Alternate Liquids/Solids Rate of Ingestion Change Avoid Specific Foods Supervision While Eating and Drinking for Safe Swallow: None Needed Foods to Avoid: Hard, tough solids; sticky textures Swallowing Recommended Treatments: Compens. Strategy Educat. Recommendation for Speech: Inpatient Speech Therapy Comment: 1 f/u Manager Supplier Clinican/Clinical Fellow: No Supervisory Statement: I have reviewed and agree with the student/clinical fellow's documentation: N/A Speech Language Pathologist: Elizabeth Chen M.A., [facility]
[2023-03-13 19:50] LABS: Glucose, Whole Blood 189 mg/dL (60-115)
[2023-03-13 20:00] VITALS: BP 162/75; PULSE 62; RESP 20; TEMP 36.3; O2SAT 96
[2023-03-13] MEDS: NIFEdipine ER 60 MG TAB.ER.24 120 MG PO (21:25)
[2023-03-13] MEDS: Insulin Lispro 100 UNIT/ML 3 ML VIAL SUBCUT (21:25)
--- NOTE | 2023-03-13 21:47 | CONS_ITS ---
DATE OF SERVICE: 03/13/2023 REFERRING PHYSICIAN: Jaime Leary MD REASON FOR CONSULTATION: Dysphagia. HISTORY OF PRESENT ILLNESS: Mr. Lazo is a pleasant 82-year-old man, well known to me from prior evaluation. He was admitted to the hospital on March 04 because of problems with a diabetic foot ulcer and infection. Consultation was requested regarding the patient's dysphagia. He has long history of dysphagia with symptomatic regurgitation. 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 He was treated with a proton pump inhibitor also with no improvement and was prescribed another medication by his primary care physician, which did not seem to help either. Symptoms include regurgitation of saliva and some food usually after eating. He is able to maintain his weight and has had normal bowel movements. He has no nocturnal regurgitation, with symptoms usually occurring after generally sitting in the living room watching television. Since admission, he has been able to tolerate a diet. He has been using a Yankauer suction, which seems to help his regurgitation symptoms. He does try to eat, sitting upright and cut his food into small pieces, chewing thoroughly. He denies any reflux symptoms. PAST MEDICAL HISTORY: 1. Diabetic foot infection as above. 2. Hypertension. 3. Diabetes mellitus. 4. Chronic kidney disease. 5. SVT. 6. Aortic stenosis. 7. Osteomyelitis, right great toe. 8. Neuropathy. 9. Hypertension. 10. Aortic stenosis. CURRENT MEDICATIONS: His current medication list is reviewed in the chart. ALLERGIES: LATEX. FAMILY HISTORY: This is reviewed with the patient. His recently diagnosed with brain cancer. SOCIAL HISTORY: There is no current tobacco, alcohol, or substance abuse. REVIEW OF SYSTEMS: SKIN: No pruritus. HEENT: Negative. CARDIOPULMONARY: No shortness of breath or chest pain. GASTROINTESTINAL: As above. GENITOURINARY: Negative. NEUROPSYCHIATRIC: Negative. PHYSICAL EXAMINATION: GENERAL: Shows a pleasant male, sitting comfortably in bed. VITAL SIGNS: Reviewed in electronic medical record and are stable. SKIN: Anicteric. HEENT: Shows no scleral icterus. NECK: Without lymphadenopathy or thyromegaly. LUNGS: Clear. HEART: Shows a regular rate and rhythm. S1, S2. No murmur. ABDOMEN: Soft without focal masses or tenderness. Bowel sounds are present. No organomegaly is noted. EXTREMITIES: Showed dressings are over the ulcer. LABORATORY DATA AND IMAGING STUDIES: Reviewed. IMPRESSION: Achalasia with regurgitation. At this time, he appears stable and is tolerating his diet. He did follow up with his providers at [facility], who indicated that repeat dilation with a larger balloon is unlikely to provide symptomatic improvement. We discussed this today. I have recommended he continue his compensating mechanism with small bites, eating slowly, and chewing his food thoroughly. I have asked speech pathology to see him with any recommendations that may be helpful. I do not think endoscopy will be helpful at this point, I did offer him a 2nd opinion in [place]. He will consider this. Thanks for asking me to see him. I will follow him in the hospital with you. MD JAIRO Ferrara/TAMMIE / [phone] MTDD
[2023-03-13] MEDS: diphenhydrAMINE HCl 2 % Cream 28 GM TUBE 1 APPL TOPICAL (22:07)
[2023-03-14] VITALS (7 sets, daily range): BP systolic 146–167; BP diastolic 62–78; PULSE 57–62; RESP 17–20; TEMP 36.4–37; O2SAT 93–97
[2023-03-14 07:57] LABS: Glucose, Whole Blood 122 mg/dL (60-115)
--- NOTE | 2023-03-14 08:06 | HO.PM.IMPN ---
Subjective Subjective Date of Service: 03/14/23 Interval History: Being followed for diabetic foot infectionn, pneumonia and peripheral arterial disease s/p angio and has been oozing from right groin Physical Exam Vital Signs: Vital Signs: Last Vital Signs Temp 97.5 F 03/14/23 07:49 Pulse 62 03/14/23 07:49 Resp 20 03/14/23 07:49 BP 146/62 H 03/14/23 07:49 Pulse Ox 95 03/14/23 07:49 O2 Del Method Room Air 03/14/23 07:49 O2 Flow Rate 1 03/12/23 04:36 FiO2 70 03/05/23 07:51 BMI result Body Mass Index 29.5 Const: Other: Constitutional - Awake and Alert, No apparent distress Eyes - PERRLA, EOMI Cardiovascular - S1S2, RRR, IV/ systolic ejection murmur, 1+ pedal pulses bilaterally Respiratory - Normal lung expansion, Normal respiratory effort, No respiratory distress, CTA bilaterally Gastrointestinal - NT / ND; +BS; No rebound or guarding Extremities - no calf tenderness bilaterally, no swelling Musculoskeletal - Normal inspection, normal ROM Skin -left foot ulcer dressing in place, ozzing from right groin pressure dressing in place Neurological - Alert & oriented x3, diminished sensation left foot Psychological - Appropriate affect Objective Data Active Medications Acetaminophen (Acetaminophen 325 Mg Tablet) 650 mg PO Q6H PRN PRN Reason: Pain, Mild (Pain Scale 1-3) Last Admin: 03/10/23 08:09 Dose: 650 mg Documented By: REHANA Amiodarone HCl (Amiodarone Hcl 200 Mg Tablet) 400 mg PO BID [facility] Last Admin: 03/13/23 21:25 Dose: 400 mg Documented By: MERISSA Comments: Dose to be given per MD. Refer to notification. Ascorbic Acid (Ascorbic Acid 500 Mg Tablet) 500 mg PO DAILY [facility] Last Admin: 03/13/23 08:04 Dose: 500 mg Documented By: ARGENIS Aspirin (Aspirin Enteric Coated 81 Mg Tablet.) 81 mg PO DAILY [facility] Last Admin: 03/13/23 08:03 Dose: 81 mg Documented By: ARGENIS Calcium Carbonate (Calcium Carbonate 500 Mg Tablet) 500 mg PO DAILY [facility] Last Admin: 03/13/23 09:49 Dose: Not Given Documented By: ARGENIS Non-Admin Reason: Patient Refused Dextrose (Dextrose 50 % 25 Gm/50 Ml Syringe) 25 gm IVPUSH Q15M PRN; Protocol PRN Reason: per Hypoglycemia Standing Ord. Docusate Sodium (Docusate Sodium 100 Mg Capsule) 100 mg PO DAILY PRN PRN Reason: Constipation Furosemide (Furosemide 40 Mg Tablet) 40 mg PO DAILY [facility]; Protocol Last Admin: 03/13/23 08:03 Dose: 40 mg Documented By: ARGENIS Glucose (Glucose Gel 15 Gm Gel..Gram.) 15 gm PO Q15M PRN; Protocol PRN Reason: per Hypoglycemia Standing Ord. Guaifenesin (Guaifenesin 200 Mg/10 Ml 10 Ml Liquid) 10 ml PO Q4H PRN PRN Reason: Cough Guaifenesin/Dextromethorphan (Guaifenesin Dm 100/10/5 Ml 5 Ml Syrup) 5 ml PO Q4H PRN PRN Reason: Cough Heparin Sodium (Porcine) (Heparin Sodium,Porcine 5,000 Unit/Ml Vial) 5,000 unit SUBCUT BID [facility] Last Admin: 03/13/23 21:28 Dose: Not Given Documented By: MERISSA Non-Admin Reason: Physician Held Med Meropenem 1 gm/ Sodium (Chloride) 100 mls @ 200 mls/hr IV Q12H [facility] Insulin Human Lispro (Insulin Lispro 100 Unit/Ml 3 Ml Vial) 0 unit SUBCUT QIDACHS [facility]; Protocol Last Admin: 03/13/23 21:25 Dose: 2 unit Documented By: MERISSA Lidocaine (Lidocaine 4 % Patch Adh..Patch) 0.5 patch TRANSDERMA DAILY [facility]; Protocol Last Admin: 03/13/23 18:51 Dose: Not Given Documented By: ARGENIS Non-Admin Reason: See Note Metoprolol Succinate (Metoprolol Succinate Er 50 Mg Tab.Er.24h) 50 mg PO DAILY [facility]; Protocol Last Admin: 03/13/23 08:02 Dose: 50 mg Documented By: ARGENIS Morphine Sulfate (Morphine Sulfate 4 Mg/Ml Cartridge) 4 mg IVPUSH Q2H PRN; Protocol PRN Reason: Pain, Severe (Pain Scale 7-10) Multivitamins/Vitamin C (Multivitamin Tablet) 1 tab PO DAILY [facility] Last Admin: 03/13/23 08:04 Dose: 1 tab Documented By: ARGENIS Nifedipine (Nifedipine Er 60 Mg Tab.Er.24) 120 mg PO BEDTIME [facility] Last Admin: 03/13/23 21:25 Dose: 120 mg Documented By: MERISSA Comments: Full dose to be given per MD. Refer to physician notification Ondansetron HCl (Ondansetron Hcl 4 Mg/2 Ml Vial) 4 mg IVPUSH Q8H PRN PRN Reason: Nausea and Vomiting Oxycodone HCl (Oxycodone Hcl Immed Release 5 Mg Tablet) 5 mg PO Q4H PRN PRN Reason: Pain, Moderate(Pain Scale 4-6) Pharmacy Consult (Consult Rx Vancomycin Dosing) 1 each MISCELLANE DAILY PRN PRN Reason: Consult order Sodium Chloride (0.9 % Sodium Chloride Flush 3 Ml Syringe) 3 ml IVFLUSH QSHIFT [facility] Last Admin: 03/13/23 21:26 Dose: 3 ml Documented By: MERISSA Vitamin D (Cholecalciferol (Vitamin D3) 25 Mcg Tablet) 25 mcg PO DAILY [facility] Last Admin: 03/13/23 08:04 Dose: 25 mcg Documented By: ARGENIS Labs 03/12/23 10:54 03/13/23 06:55 Labs: Laboratory Results - last 24 hr 03/13/23 03/13/23 03/13/23 11:16 15:48 19:41 Hold Purple Top POC Glucose 166 H 133 H 189 H 03/14/23 03/14/23 07:13 07:51 Hold Purple Top SEE NOTE POC Glucose 122 H Assessment and Plan (1) Pneumonia: Status: Acute (2) Cellulitis: Status: Acute Plan 82-year-old male with history of hypertension, [id number] type 2 diabetes, CKD stage 3, history SVT, aortic stenosis, history osteomyelitis R great toe, and diabetic polyneuropathy admitted for diabetic foot infection with sepsis and question of osteomyelitis. #Infected Left diabetic foot ulcer with sepsis with abscess, MRI shows abscess but no osteomylitis, Surgery did I and D on 03/05. He has been on Zosyn+Vanco since 03/04 and stopped 03/13. ID recommends Invanz at [facility]. Cultures have been negative. Zosyn and Vanco stopped 03/13. Meropenem 1 gram Q12 (started 03/13) while in the hospital and change to Invanz 500 mg Q24 hrs at discharge. He may ultimately need amputaion. #PAD--Angiogram of left lower extremity 03/11, see vascular note Oozing from angio site, pressure dressing per surgery and holding ASA, and Plavix at this time, follow CBC, there does not appear to be a pseudoaneurysm in the groin but should be monitored and considered for this. Pressure dressing with sand bag applied overnight. Follow CBC, type and screen #Pneumonia --same Abx as above, initially required O2 but now off and clincally recoverd #Non-insulin dependent type 2 diabetes- with hyperglycemia -last A1c 6.7% -POC glucose -diabetic diet -humalog on sliding scale #HTN--BP's on high side, increased metoprolol to 50, Nifedpine has been increase from 90 to 120 earlier #History SVT--presently in sinus rhythm -continue bb, ccb #Regurgitating food, history stricture--GI consult #CKD stage 3 -renal function baseline, nephrology following DVT prophylaxis- heparin Full code Pt requires inpatient stay for management of infected stage II diabetic foot ulcer with sepsis, need for intervention . Time Spent With Patient Time: Total time managing care of this patient today ____ minutes. Quality Stroke Does the patient have a stroke diagnosis?: No VTE Prior VTE?: No VTE Risk Level:: Medical - moderate - high VTE Device Contraindication: Treatment Not Indicated VTE Drug Contraindication: N/A - Med Ordered
[2023-03-14 08:15] LABS: Creatinine Clr Calc Pharmacy 26.8; Estimated Glomerular Filt Rate 22
[2023-03-14] MEDS: Lidocaine 4 % Patch ADH..PATCH 0.5 PATCH TRANSDERMA (09:33)
[2023-03-14] MEDS: Furosemide 40 MG TABLET PO (09:34)
[2023-03-14] MEDS: Multivitamin TABLET 1 TAB PO (09:34)
[2023-03-14] MEDS: Metoprolol Succinate ER 50 MG TAB.ER.24H PO (09:34)
[2023-03-14] MEDS: Ascorbic Acid 500 MG TABLET PO (09:34)
[2023-03-14] MEDS: Aspirin Enteric Coated 81 MG TABLET.DR PO (09:34)
[2023-03-14] MEDS: Cholecalciferol (Vitamin D3) 25 MCG TABLET PO (09:34)
[2023-03-14] MEDS: Amiodarone HCL 200 MG TABLET 400 MG PO ×2 (09:34→20:35)
[2023-03-14] MEDS: Heparin Sodium,Porcine 5,000 UNIT/ML VIAL 5000 UNIT SUBCUT ×2 (10:28→20:36)
[2023-03-14 11:45] LABS: Glucose, Whole Blood 141 mg/dL (60-115)
[2023-03-14 14:24] LABS: Vancomycin Random 12.6 mcg/mL (15-20)
[2023-03-14 16:33] LABS: Glucose, Whole Blood 162 mg/dL (60-115)
[2023-03-14] MEDS: Insulin Lispro 100 UNIT/ML 3 ML VIAL SUBCUT (17:04)
[2023-03-14 20:18] LABS: Glucose, Whole Blood 129 mg/dL (60-115)
[2023-03-14] MEDS: NIFEdipine ER 60 MG TAB.ER.24 120 MG PO (20:36)
[2023-03-15 03:23] VITALS: BP 151/67; PULSE 68; RESP 18; TEMP 37; O2SAT 93
--- NOTE | 2023-03-15 05:54 | HO.SKINPHOTO ---
Updated Photo for Left foot Diabetic Ulcer Wound. 03/15/2023 @ 0530. Picture#1 Left great toe. Picture #2 bottom of left foot plantar.
[2023-03-15 07:11] LABS: Glucose, Whole Blood 128 mg/dL (60-115)
[2023-03-15 07:31] VITALS: BP 135/60; PULSE 54; RESP 20; TEMP 36.5; O2SAT 95
[2023-03-15 07:53] LABS: Creatinine Clr Calc Pharmacy 24.2; Estimated Glomerular Filt Rate 19
--- NOTE | 2023-03-15 08:17 | P.PNNP_ITS ---
Subjective Subjective Date of Service: 03/15/23 Interval history: seen and examined no complaints Physical Exam 2 Vital Signs: Vital Signs: Last Vital Signs Temp 97.7 F 03/15/23 07:31 Pulse 54 03/15/23 07:31 Resp 20 03/15/23 07:31 BP 135/60 03/15/23 07:31 Pulse Ox 95 03/15/23 07:31 O2 Del Method Room Air 03/15/23 07:31 O2 Flow Rate 1 03/12/23 04:36 FiO2 70 03/05/23 07:51 BMI result Body Mass Index 29.5 Const: General: alert and awake HEENT: Head: Yes normocephalic and Yes atraumatic Neck: Neck: Yes supple Resp: Auscultation: clear to auscultation bilaterally Cardio: Heart sounds: S1 normal heart sound present and S2 normal heart sound present GI: Palpation (GI): Soft to palpation and nontender Objective Data Labs 03/12/23 10:54 03/15/23 06:55 Labs: Laboratory Results - last 24 hr 03/14/23 03/14/23 03/14/23 11:42 13:44 16:29 Creatinine Estim Creat Clear Calc Estimated GFR POC Glucose 141 H 162 H Random Vancomycin 12.6 L 03/14/23 03/15/23 03/15/23 20:09 06:55 07:07 Creatinine 3.10 H Estim Creat Clear Calc 24.2 Estimated GFR 19 POC Glucose 129 H 128 H Random Vancomycin Microbiology Microbiology Results: Microbiology 03/04/23 11:15 Blood - Venous Blood Culture - Final No growth after 5 days. 03/04/23 10:35 Blood - Venous Blood Culture - Final No growth after 5 days. 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 Progress Note: Quality Stroke Does the patient have a stroke diagnosis?: No
[2023-03-15] MEDS: Ascorbic Acid 500 MG TABLET PO (09:52)
[2023-03-15] MEDS: Metoprolol Succinate ER 50 MG TAB.ER.24H PO (09:52)
[2023-03-15] MEDS: Amiodarone HCL 200 MG TABLET 400 MG PO ×2 (09:52→21:55)
[2023-03-15] MEDS: Furosemide 40 MG TABLET PO (09:52)
[2023-03-15] MEDS: Multivitamin TABLET 1 TAB PO (09:52)
--- NOTE | 2023-03-15 09:52 | P.PNIM_ITS ---
Subjective Subjective Date of Service: 03/15/23 Interval History: Being followed for diabetic foot infectionn, pneumonia and peripheral arterial disease s/p angio. He continues to ooze from the right groin despite pressure dressing Physical Exam 2 Vital Signs: Vital Signs: Last Vital Signs Temp 97.7 F 03/15/23 07:31 Pulse 54 03/15/23 07:31 Resp 20 03/15/23 07:31 BP 135/60 03/15/23 07:31 Pulse Ox 95 03/15/23 07:31 O2 Del Method Room Air 03/15/23 07:31 O2 Flow Rate 1 03/12/23 04:36 FiO2 70 03/05/23 07:51 BMI result Body Mass Index 29.5 Const: Other: Constitutional - Awake and Alert, No apparent distress Eyes - PERRLA, EOMI Cardiovascular - S1S2, RRR, IV/ systolic ejection murmur, 1+ pedal pulses bilaterally Respiratory - Normal lung expansion, Normal respiratory effort, No respiratory distress, CTA bilaterally Gastrointestinal - NT / ND; +BS; No rebound or guarding Extremities - no calf tenderness bilaterally, no swelling Musculoskeletal - Normal inspection, normal ROM Skin -left foot ulcer dressing in place, ozzing from right groin pressure dressing in place 03/15 Neurological - Alert & oriented x3, diminished sensation left foot Psychological - Appropriate affect Objective Data Active Medications Acetaminophen (Acetaminophen 325 Mg Tablet) 650 mg PO Q6H PRN PRN Reason: Pain, Mild (Pain Scale 1-3) Last Admin: 03/10/23 08:09 Dose: 650 mg Documented By: REHANA Amiodarone HCl (Amiodarone Hcl 200 Mg Tablet) 400 mg PO BID [facility] Last Admin: 03/14/23 20:35 Dose: 400 mg Documented By: JJ Ascorbic Acid (Ascorbic Acid 500 Mg Tablet) 500 mg PO DAILY [facility] Last Admin: 03/14/23 09:34 Dose: 500 mg Documented By: DIANA Aspirin (Aspirin Enteric Coated 81 Mg Tablet.) 81 mg PO DAILY [facility] Last Admin: 03/14/23 09:34 Dose: 81 mg Documented By: DIANA Calcium Carbonate (Calcium Carbonate 500 Mg Tablet) 500 mg PO DAILY [facility] Last Admin: 03/14/23 09:34 Dose: 500 mg Documented By: DIANA Dextrose (Dextrose 50 % 25 Gm/50 Ml Syringe) 25 gm IVPUSH Q15M PRN; Protocol PRN Reason: per Hypoglycemia Standing Ord. Docusate Sodium (Docusate Sodium 100 Mg Capsule) 100 mg PO DAILY PRN PRN Reason: Constipation Furosemide (Furosemide 40 Mg Tablet) 40 mg PO DAILY [facility]; Protocol Last Admin: 03/14/23 09:34 Dose: 40 mg Documented By: DIANA Glucose (Glucose Gel 15 Gm Gel..Gram.) 15 gm PO Q15M PRN; Protocol PRN Reason: per Hypoglycemia Standing Ord. Guaifenesin (Guaifenesin 200 Mg/10 Ml 10 Ml Liquid) 10 ml PO Q4H PRN PRN Reason: Cough Guaifenesin/Dextromethorphan (Guaifenesin Dm 100/10/5 Ml 5 Ml Syrup) 5 ml PO Q4H PRN PRN Reason: Cough Heparin Sodium (Porcine) (Heparin Sodium,Porcine 5,000 Unit/Ml Vial) 5,000 unit SUBCUT BID [facility] Last Admin: 03/14/23 20:36 Dose: 5,000 unit Documented By: JJ Meropenem 1 gm/ Sodium (Chloride) 100 mls @ 200 mls/hr IV Q12H [facility] Last Infusion: 03/14/23 21:50 Dose: Infused Documented By: MERISSA Insulin Human Lispro (Insulin Lispro 100 Unit/Ml 3 Ml Vial) 0 unit SUBCUT QIDACHS [facility]; Protocol Last Admin: 03/15/23 07:34 Dose: Not Given Documented By: DIANA Non-Admin Reason: No Insulin Coverage Comments: per sliding scale Lidocaine (Lidocaine 4 % Patch Adh..Patch) 0.5 patch TRANSDERMA DAILY [facility]; Protocol Last Admin: 03/14/23 09:33 Dose: 0.5 patch Documented By: DIANA Metoprolol Succinate (Metoprolol Succinate Er 50 Mg Tab.Er.24h) 50 mg PO DAILY [facility]; Protocol Last Admin: 03/14/23 09:34 Dose: 50 mg Documented By: DIANA Morphine Sulfate (Morphine Sulfate 4 Mg/Ml Cartridge) 4 mg IVPUSH Q2H PRN; Protocol PRN Reason: Pain, Severe (Pain Scale 7-10) Multivitamins/Vitamin C (Multivitamin Tablet) 1 tab PO DAILY [facility] Last Admin: 03/14/23 09:34 Dose: 1 tab Documented By: DIANA Nifedipine (Nifedipine Er 60 Mg Tab.Er.24) 120 mg PO BEDTIME [facility] Last Admin: 03/14/23 20:36 Dose: 120 mg Documented By: JJ Ondansetron HCl (Ondansetron Hcl 4 Mg/2 Ml Vial) 4 mg IVPUSH Q8H PRN PRN Reason: Nausea and Vomiting Oxycodone HCl (Oxycodone Hcl Immed Release 5 Mg Tablet) 5 mg PO Q4H PRN PRN Reason: Pain, Moderate(Pain Scale 4-6) Sodium Chloride (0.9 % Sodium Chloride Flush 3 Ml Syringe) 3 ml IVFLUSH QSHIFT [facility] Last Admin: 03/14/23 20:37 Dose: 3 ml Documented By: JJ Vitamin D (Cholecalciferol (Vitamin D3) 25 Mcg Tablet) 25 mcg PO DAILY [facility] Last Admin: 03/14/23 09:34 Dose: 25 mcg Documented By: DIANA Labs 03/12/23 10:54 03/15/23 06:55 Labs: Laboratory Results - last 24 hr 03/14/23 03/14/23 03/14/23 11:42 13:44 16:29 Estim Creat Clear Calc Estimated GFR POC Glucose 141 H 162 H Random Vancomycin 12.6 L 03/14/23 03/15/23 03/15/23 20:09 06:55 07:07 Estim Creat Clear Calc 24.2 Estimated GFR 19 POC Glucose 129 H 128 H Random Vancomycin Assessment and Plan (1) Pneumonia: Status: Acute (2) Cellulitis: Status: Acute Plan 82-year-old male with history of hypertension, [id number] type 2 diabetes, CKD stage 3, history SVT, aortic stenosis, history osteomyelitis R great toe, and diabetic polyneuropathy admitted for diabetic foot infection with sepsis and question of osteomyelitis. #Infected Left diabetic foot ulcer with sepsis with abscess, MRI shows abscess but no osteomylitis, Surgery did I and D on 03/05. He has been on Zosyn+Vanco since 03/04 and stopped 03/13. ID recommends Invanz at [facility]. Cultures have been negative. Zosyn and Vanco stopped 03/13. Meropenem 1 gram Q12 (started 03/13) while in the hospital and change to Invanz 500 mg Q24 hrs at discharge. He may ultimately need amputaion. From the picture wound is better #PAD--Angiogram of left lower extremity 03/11, see vascular note Oozing from angio site, pressure dressing per surgery and holding ASA, and Plavix at this time, follow CBC, there does not appear to be a pseudoaneurysm in the groin but should be monitored and considered for this. Pressure dressing with sand bag applied overnight. Follow CBC, type and screen and ask Dr. Jewell if anything else needs to be done at this to point #Pneumonia --same Abx as above, initially required O2 but now off and clincally recoverd #Non-insulin dependent type 2 diabetes- with hyperglycemia -last A1c 6.7% -POC glucose -diabetic diet -humalog on sliding scale #HTN--BP's on high side, increased metoprolol to 50, Nifedpine has been increase from 90 to 120 earlier #History SVT--presently in sinus rhythm -continue bb, ccb #Regurgitating food, history stricture--Seen by GI recommendation to recommend prsently compensatory mechanism and [employer] #CKD stage 3, Creatine has gone up a bit from 2. 8 to now 3.1 -renal function baseline, nephrology following DVT prophylaxis- heparin Full code Pt requires inpatient stay for management of infected stage II diabetic foot ulcer with sepsis, need for intervention . Time Spent With Patient Time: Total time managing care of this patient today ____ minutes. Quality Stroke Does the patient have a stroke diagnosis?: No VTE Prior VTE?: No VTE Risk Level:: Medical - moderate - high VTE Device Contraindication: Treatment Not Indicated VTE Drug Contraindication: N/A - Med Ordered
[2023-03-15] MEDS: Lidocaine 4 % Patch ADH..PATCH 0.5 PATCH TRANSDERMA (09:53)
[2023-03-15] MEDS: Cholecalciferol (Vitamin D3) 25 MCG TABLET PO (09:53)
[2023-03-15] MEDS: Heparin Sodium,Porcine 5,000 UNIT/ML VIAL 5000 UNIT SUBCUT (09:54)
[2023-03-15] MEDS: Aspirin Enteric Coated 81 MG TABLET.DR PO (09:54)
[2023-03-15 10:45] LABS: Hematocrit 32.3 % (42.0-52.0); Hemoglobin 10.4 g/dl (14.0-18.0); Mean Corpuscular HGB Conc 32.2 g/dl (31.0-36.0); Mean Corpuscular Hemoglobin 27.4 pg (27.0-33.0); Mean Platelet Volume 9.4 fL (9.4-12.4); Platelet Count 592 X10*3/uL (160-400); Red Cell Distribution Width 15.6 % (11.0-16.0); White Blood Count 10.3 X10*3/uL (4.8-10.8)
[2023-03-15 11:01] VITALS: BP 131/61; PULSE 59; RESP 20; TEMP 36.1; O2SAT 97
[2023-03-15 11:12] LABS: Glucose, Whole Blood 187 mg/dL (60-115)
[2023-03-15] MEDS: Insulin Lispro 100 UNIT/ML 3 ML VIAL SUBCUT ×2 (12:01→21:55)
[2023-03-15 15:58] VITALS: BP 146/62; PULSE 63; RESP 20; TEMP 36.6; O2SAT 94
[2023-03-15 16:21] LABS: Glucose, Whole Blood 117 mg/dL (60-115)
[2023-03-15 19:44] VITALS: BP 178/77; PULSE 59; RESP 14; TEMP 36.2; O2SAT 95
[2023-03-15 19:54] VITALS: BP 168/62
[2023-03-15 20:35] LABS: Glucose, Whole Blood 156 mg/dL (60-115)
[2023-03-15] MEDS: NIFEdipine ER 60 MG TAB.ER.24 120 MG PO (21:54)
[2023-03-16] VITALS (8 sets, daily range): BP systolic 152–190; BP diastolic 62–80; PULSE 57–63; RESP 18–20; TEMP 36–36.6; O2SAT 96–98
[2023-03-16 07:27] LABS: Hematocrit 32.3 % (42.0-52.0); Hemoglobin 10.6 g/dl (14.0-18.0); Mean Corpuscular HGB Conc 32.8 g/dl (31.0-36.0); Mean Corpuscular Hemoglobin 27.5 pg (27.0-33.0); Mean Corpuscular Volume 83.7 fL (80.0-98.0); Mean Platelet Volume 9.4 fL (9.4-12.4); Platelet Count 575 X10*3/uL (160-400); Red Blood Count 3.86 X10*6/uL (4.60-5.80); Red Cell Distribution Width 15.2 % (11.0-16.0); White Blood Count 10.4 X10*3/uL (4.8-10.8)
[2023-03-16 07:31] LABS: Prothrombin Time 11.8 SEC (11.1-13.3)
[2023-03-16 07:40] LABS: Glucose, Whole Blood 123 mg/dL (60-115)
[2023-03-16 07:49] LABS: Anion Gap 15 (12-20); Blood Urea Nitrogen 40 mg/dL (9-16); Calcium 9.3 mg/dL (8.4-10.2); Carbon Dioxide 21 mmol/L (22-29); Chloride 107 mmol/L (96-108); Estimated Glomerular Filt Rate 21; Glucose Random 123 mg/dL (60-115); Potassium 4.2 mmol/L (3.3-5.1); Sodium 139 mmol/L (135-145)
[2023-03-16] MEDS: Lidocaine 4 % Patch ADH..PATCH 0.5 PATCH TRANSDERMA (08:57)
[2023-03-16] MEDS: Furosemide 40 MG TABLET PO (09:02)
[2023-03-16] MEDS: Metoprolol Succinate ER 50 MG TAB.ER.24H PO (09:03)
[2023-03-16] MEDS: Amiodarone HCL 200 MG TABLET 400 MG PO ×2 (09:03→22:00)
[2023-03-16] MEDS: Cholecalciferol (Vitamin D3) 25 MCG TABLET PO (09:03)
[2023-03-16] MEDS: Multivitamin TABLET 1 TAB PO (09:03)
--- NOTE | 2023-03-16 09:10 | MHC.SLORD ---
Speech Language Pathology Order Status: Pt is NPO for procedure, thus no PO trials were given this date. Once pt is cleared to resume PO, he is on a regular texture diet with thin liquids, w/ behavioral strategies for esophageal phase dysphagia. [employer] to f/u 1x.
[2023-03-16 11:48] LABS: Glucose, Whole Blood 132 mg/dL (60-115)
--- NOTE | 2023-03-16 11:49 | P.PNVS_ITS ---
Subjective Subjective Date of Service: 03/16/23 Patient reports: no new complaints and feels better Interval history: Very pleasant 82-year-old gentleman presents for follow-up regarding nonhealing left lower extremity ulcer. His right groin persistently lose throughout the weekend. It appears to become more hemostatic. He is off all anti-platelet agents at the current time. Scheduled for line placement later today. Physical Exam Vital Signs: Vital Signs: Last Vital Signs Temp 97.3 F 03/16/23 11:19 Pulse 60 03/16/23 11:19 Resp 18 03/16/23 11:19 BP 163/71 H 03/16/23 11:19 Pulse Ox 97 03/16/23 11:19 O2 Del Method Room Air 03/16/23 11:19 O2 Flow Rate 1 03/12/23 04:36 FiO2 70 03/05/23 07:51 BMI result Body Mass Index 29.5 Const: General: cooperative, healthy appearing and comfortable Orientati on/consciousness: oriented to person, oriented to place and oriented to time HEENT: Head: Yes normal to inspection Neck: Neck: Yes normal visual inspection Carotids: no bruits Chest: Chest palpation & inspection: normal inspection of the chest Resp: Effort & Inspection: normal respiratory effort and able to speak in complete sentences Auscultation: clear to auscultation bilaterally, no crackles, no rales, no rhonchi and no wheezes Cardio: Rate: regular rate Rhythm: regular rhythm Heart sounds: S1 normal heart sound present and S2 normal heart sound present Bruits: no carotid bruits Peripheral pulses: Peripheral pulses 2+ throughout GI: Inspection: Yes normal to inspection Skin: Other: Left foot dressing clean dry intact Wounds: wounds noted Hair: normal Neuro: General: oriented to person, oriented to place and oriented to time Cranial nerves: Yes CN's II-XII intact bilaterally and Yes Normal hearing present Cognition (Neuro): normal cognition Motor exam (neuro): 5/5 motor strength present throughout Extrem: Other: venous exam: No significant superficial varicosities or spider telangiectasias, minimal edema General: No clubbing, No cyanosis and No edema Psych: Appearance: grossly normal Mental Status: mental status grossly normal Speech and movement: Normal speech and movement present Progress Note: A&P Assessment and plan (1) Diabetic foot infection: Status: Acute Plan In short patient is doing extremely well status post angiogram with endovascular intervention. Unfortunately he it appears that he is sensitive to aspirin and Plavix. At the current time he is off of both. Recommend line placement and antibiotic therapy. We can follow the wound as an outpatient. Once again he is at high risk for further amputation. See how the wound progresses and may schedule amputation as an outpatient. Thank you for allowing us to assist in his care. Time Spent With Patient Time: Total time managing care of this patient today ____ minutes. Procedures Date of Service Date of Service: 03/16/23 Quality Stroke Does the patient have a stroke diagnosis?: No VTE Prior VTE?: No VTE Risk Level:: Medical - moderate - high VTE Device Contraindication: Treatment Not Indicated VTE Drug Contraindication: N/A - Med Ordered
--- NOTE | 2023-03-16 12:01 | HO.PM.IMPN ---
Subjective Subjective Date of Service: 03/16/23 Interval History: f/u foot ulcer, Physical Exam Vital Signs: Vital Signs: Last Vital Signs Temp 97.3 F 03/16/23 11:19 Pulse 60 03/16/23 11:19 Resp 18 03/16/23 11:19 BP 163/71 H 03/16/23 11:19 Pulse Ox 97 03/16/23 11:19 O2 Del Method Room Air 03/16/23 11:19 O2 Flow Rate 1 03/12/23 04:36 FiO2 70 03/05/23 07:51 BMI result Body Mass Index 29.5 Const: Other: Constitutional - Awake and Alert, No apparent distress Eyes - PERRLA, EOMI Cardiovascular - S1S2, RRR, IV/ systolic ejection murmur, 1+ pedal pulses bilaterally Respiratory - Normal lung expansion, Normal respiratory effort, No respiratory distress, CTA bilaterally Gastrointestinal - NT / ND; +BS; No rebound or guarding Extremities - no calf tenderness bilaterally, no swelling Musculoskeletal - Normal inspection, normal ROM Skin -left foot ulcer dressing in place, ozzing from right groin pressure dressing in place 03/15 Neurological - Alert & oriented x3, diminished sensation left foot Psychological - Appropriate affect General: cooperative, healthy appearing, comfortable, no acute distress, alert and awake Orientation/consciousness: oriented to person, oriented to place and oriented to time HEENT: Head: Yes normal to inspection, Yes normocephalic and Yes atraumatic Face and sinus: Yes normal facial exam Mouth: Normal oral and palatal mucosa present Teeth and gingiva: dentition normal Eyes: General: appearance normal, both eyes and all related structures Pupils: Equal, round and reactive pupils present Neck: Neck: Yes normal visual inspection and Yes supple Carotids: no bruits Chest: Chest palpation & inspection: normal inspection of the chest Resp: Effort & Inspection: normal respiratory effort and able to speak in complete sentences Auscultation: clear to auscultation bilaterally, no crackles, no rales, no rhonchi and no wheezes Cardio: Rate: regular rate Rhythm: regular rhythm Heart sounds: S1 normal heart sound present and S2 normal heart sound present Bruits: no carotid bruits Peripheral pulses: Peripheral pulses 2+ throughout GI: Inspection: Yes normal to inspection Palpation (GI): Soft to palpation and nontender : General: Yes no CVA tenderness Back/Spine/Pelvis: Back: no CVA tenderness Skin: Other: Left foot dressing clean dry intact General skin exam: no rashes or lesions noted Wounds: no wounds and wounds noted Hair: normal Neuro: General: oriented to person, oriented to place, oriented to time, moves all extremities and CN's II-XI intact bilaterally Cranial nerves: Yes CN's II-XII intact bilaterally and Yes Equal, round and reactive pupils present Cognition (Neuro): normal cognition Motor exam (neuro): 5/5 motor strength present throughout Extrem: Other: venous exam: No significant superficial varicosities or spider telangiectasias, minimal edema General: Yes normal to inspection, Yes full ROM, Yes no clubbing, cyanosis or edema, No clubbing, No cyanosis and No edema Psych: Appearance: grossly normal and well kempt Mental Status: mental status grossly normal Speech and movement: Normal speech and movement present Affect: normal affect Objective Data Active Medications Acetaminophen (Acetaminophen 325 Mg Tablet) 650 mg PO Q6H PRN PRN Reason: Pain, Mild (Pain Scale 1-3) Last Admin: 03/10/23 08:09 Dose: 650 mg Documented By: REHANA Amiodarone HCl (Amiodarone Hcl 200 Mg Tablet) 400 mg PO BID [facility] Last Admin: 03/16/23 09:03 Dose: 400 mg Documented By: ARGENIS Ascorbic Acid (Ascorbic Acid 500 Mg Tablet) 500 mg PO DAILY [facility] Last Admin: 03/16/23 09:06 Dose: Not Given Documented By: ARGENIS Non-Admin Reason: Patient Refused Aspirin (Aspirin Enteric Coated 81 Mg Tablet.) 81 mg PO DAILY [facility] Last Admin: 03/16/23 09:07 Dose: Not Given Documented By: ARGENIS Non-Admin Reason: Patient Refused Calcium Carbonate (Calcium Carbonate 500 Mg Tablet) 500 mg PO DAILY [facility] Last Admin: 03/16/23 09:07 Dose: Not Given Documented By: ARGENIS Non-Admin Reason: Patient Refused Dextrose (Dextrose 50 % 25 Gm/50 Ml Syringe) 25 gm IVPUSH Q15M PRN; Protocol PRN Reason: per Hypoglycemia Standing Ord. Docusate Sodium (Docusate Sodium 100 Mg Capsule) 100 mg PO DAILY PRN PRN Reason: Constipation Furosemide (Furosemide 40 Mg Tablet) 40 mg PO DAILY [facility]; Protocol Last Admin: 03/16/23 09:02 Dose: 40 mg Documented By: ARGENIS Glucose (Glucose Gel 15 Gm Gel..Gram.) 15 gm PO Q15M PRN; Protocol PRN Reason: per Hypoglycemia Standing Ord. Guaifenesin (Guaifenesin 200 Mg/10 Ml 10 Ml Liquid) 10 ml PO Q4H PRN PRN Reason: Cough Guaifenesin/Dextromethorphan (Guaifenesin Dm 100/10/5 Ml 5 Ml Syrup) 5 ml PO Q4H PRN PRN Reason: Cough Heparin Sodium (Porcine) (Heparin Sodium,Porcine 5,000 Unit/Ml Vial) 5,000 unit SUBCUT BID [facility] Last Admin: 03/16/23 09:06 Dose: Not Given Documented By: ARGENIS Non-Admin Reason: holding thinners Meropenem 1 gm/ Sodium (Chloride) 100 mls @ 200 mls/hr IV Q12H [facility] Last Infusion: 03/16/23 09:59 Dose: Infused Documented By: ARGENIS Insulin Human Lispro (Insulin Lispro 100 Unit/Ml 3 Ml Vial) 0 unit SUBCUT QIDACHS [facility]; Protocol Last Admin: 03/16/23 07:44 Dose: Not Given Documented By: ARGENIS Non-Admin Reason: No Insulin Coverage Lidocaine (Lidocaine 4 % Patch Adh..Patch) 0.5 patch TRANSDERMA DAILY [facility]; Protocol Last Admin: 03/16/23 08:57 Dose: 0.5 patch Documented By: ARGENIS Metoprolol Succinate (Metoprolol Succinate Er 50 Mg Tab.Er.24h) 50 mg PO DAILY [facility]; Protocol Last Admin: 03/16/23 09:03 Dose: 50 mg Documented By: ARGENIS Multivitamins/Vitamin C (Multivitamin Tablet) 1 tab PO DAILY [facility] Last Admin: 03/16/23 09:03 Dose: 1 tab Documented By: ARGENIS Nifedipine (Nifedipine Er 60 Mg Tab.Er.24) 120 mg PO BEDTIME [facility] Last Admin: 03/15/23 21:54 Dose: 120 mg Documented By: ANDREINA Ondansetron HCl (Ondansetron Hcl 4 Mg/2 Ml Vial) 4 mg IVPUSH Q8H PRN PRN Reason: Nausea and Vomiting Sodium Chloride (0.9 % Sodium Chloride Flush 3 Ml Syringe) 3 ml IVFLUSH QSHIFT [facility] Last Admin: 03/16/23 09:03 Dose: 3 ml Documented By: ARGENIS Vitamin D (Cholecalciferol (Vitamin D3) 25 Mcg Tablet) 25 mcg PO DAILY [facility] Last Admin: 03/16/23 09:03 Dose: 25 mcg Documented By: ARGENIS Labs 03/16/23 06:57 03/16/23 06:57 Labs: Laboratory Results - last 24 hr 03/15/23 03/15/23 03/16/23 16:17 20:15 06:57 MCV 83.7 MCH 27.5 MCHC 32.8 RDW 15.2 Plt Count 575 H MPV 9.4 Absolute Nucleated RBC 0.000 Nucleated RBC % (auto) 0.0 PT 11.8 INR 1.0 APTT Anion Gap 15 Estim Creat Clear Calc 26.0 Estimated GFR 21 POC Glucose 117 H 156 H Random Glucose 123 H Calcium 9.3 D 03/16/23 03/16/23 03/16/23 06:58 07:10 11:21 MCV MCH MCHC RDW Plt Count MPV Absolute Nucleated RBC Nucleated RBC % (auto) PT INR APTT 30.0 Anion Gap Estim Creat Clear Calc Estimated GFR POC Glucose 123 H 132 H Random Glucose Calcium Assessment and Plan (1) Pneumonia: Status: Acute (2) Cellulitis: Status: Acute Plan 82-year-old male with history of hypertension, jeo-azncora-vwhirsmri type 2 diabetes, CKD stage 3, history SVT, aortic stenosis, history osteomyelitis R great toe, and diabetic polyneuropathy admitted for diabetic foot infection with sepsis and question of osteomyelitis. #Infected Left diabetic foot ulcer with sepsis with abscess, MRI shows abscess but no osteomylitis, Surgery did I and D on 03/05. He has been on Zosyn+Vanco since 03/04 and stopped 03/13. ID recommends Invanz at [facility]. Cultures have been negative. Zosyn and Vanco stopped 03/13. Meropenem 1 gram Q12 (started 03/13) while in the hospital and change to Invanz 500 mg Q24 hrs at discharge. He may ultimately need amputaion. From the picture wound is better. To have a Eagle catheter #PAD--Angiogram of left lower extremity 03/11, see vascular note Oozing from angio site, pressure dressing per surgery and holding ASA, and Plavix at this time, follow CBC, there does not appear to be a pseudoaneurysm in the groin but should be monitored and considered for this. Bleeding seems to have finally stopped, there was no effect on H/H #Pneumonia --same Abx as above, initially required O2 but now off and clincally recoverd #Non-insulin dependent type 2 diabetes- with hyperglycemia -last A1c 6.7% -POC glucose -diabetic diet -humalog on sliding scale #HTN--BP's on high side, increased metoprolol to 50, Nifedpine has been increase from 90 to 120 earlier #History SVT--presently in sinus rhythm -continue bb, ccb #Regurgitating food, history stricture--Seen by GI recommendation to recommend prsently compensatory mechanism and ER RN #CKD stage 3, Creatine has gone up a bit from 2. 8 to now 3.1 -renal function baseline, nephrology following DVT prophylaxis- heparin Full code Pt requires inpatient stay for management of infected stage II diabetic foot ulcer with sepsis, need for intervention . Anticipate discharge tomorow Time Spent With Patient Time: Total time managing care of this patient today ____ minutes. Quality Stroke Does the patient have a stroke diagnosis?: No VTE Prior VTE?: No VTE Risk Level:: Medical - moderate - high VTE Device Contraindication: Treatment Not Indicated VTE Drug Contraindication: N/A - Med Ordered
--- NOTE | 2023-03-16 12:07 | MHC.CM.PN ---
Per ROUNDS discussion, Patient is getting his Eagle today and may be ready to dc to home tomorrow. CM will follow.
[2023-03-16] MEDS: Lidocaine HCl 1 % MPF 30 ML VIAL 10 ML SUBCUT (15:53)
[2023-03-16 16:38] LABS: Glucose, Whole Blood 119 mg/dL (60-115)
[2023-03-16 20:50] LABS: Glucose, Whole Blood 167 mg/dL (60-115)
[2023-03-16] MEDS: NIFEdipine ER 60 MG TAB.ER.24 120 MG PO (22:00)
[2023-03-16] MEDS: Insulin Lispro 100 UNIT/ML 3 ML VIAL SUBCUT (22:02)
[2023-03-17 04:00] VITALS: BP 157/71; PULSE 54; RESP 20; TEMP 36.8; O2SAT 97
[2023-03-17 07:36] LABS: Glucose, Whole Blood 119 mg/dL (60-115)
[2023-03-17 07:39] VITALS: BP 152/70; PULSE 58; RESP 18; TEMP 36.8; O2SAT 97
--- NOTE | 2023-03-17 08:15 | HO.RADPN ---
RADIOLOGY Narrative Narrative: Procedure Note: Eagle placement Indications: IV abx, CKD Clinician: Jelani JACKSON Findings: Right IJ Eagle placed using US and Fluoro. Catheter length 27 cm. Tip at cavoatrial junction. Ok for use No immediate complications Full dictation to follow Jelani JACKSON Interventional Radiology
[2023-03-17] MEDS: Heparin Sodium,Porcine 5,000 UNIT/ML VIAL 5000 UNIT SUBCUT (09:31)
[2023-03-17] MEDS: Ascorbic Acid 500 MG TABLET PO (09:32)
[2023-03-17] MEDS: Metoprolol Succinate ER 50 MG TAB.ER.24H PO (09:32)
[2023-03-17] MEDS: Amiodarone HCL 200 MG TABLET 400 MG PO (09:32)
[2023-03-17] MEDS: Furosemide 40 MG TABLET PO (09:32)
[2023-03-17] MEDS: Aspirin Enteric Coated 81 MG TABLET.DR PO (09:32)
[2023-03-17] MEDS: Multivitamin TABLET 1 TAB PO (09:32)
[2023-03-17] MEDS: Cholecalciferol (Vitamin D3) 25 MCG TABLET PO (09:32)
[2023-03-17] MEDS: Heparin Sodium,Porcine Flush 50 UNITS, 0.9 % Sodium Chloride Flush 5 ML IVFLUSH (09:45)
--- NOTE | 2023-03-17 09:49 | PM.DS ---
DS: Providers Provider Date of Service: 03/17/23 Date of admission: 03/04/23 12:31 Primary care physician: Jos Mirza MD Consults: 03/04/23 13:12 Consult to Vascular Surgery Routine Consulting Provider: [facility] [place] [facility] Reason for consultation: non healing diabetic foot ulcer, suspect osteo 03/04/23 20:26 Consult to Cardiology Routine Consulting Provider: [facility] [place] [facility] Reason for consultation: new CHF 03/06/23 09:22 Consult to Nephrology Routine Consulting Provider: Bobo Hernández Reason for consultation: Chronic renal insufficiency pre angio eval Has provider been notified: No 03/09/23 11:58 Consult to Infectious Diseases Routine Consulting Provider: [facility] [place] Infectious Disease Reason for consultation: infected foot 03/10/23 16:35 Consult to Gastroenterology Routine Consulting Provider: Too Casey Reason for consultation: regurgitating food Has provider been notified: No DS: Diagnosis Discharge Diagnosis (1) Pneumonia: Status: Acute (2) Cellulitis: Status: Acute DS: Summary Hospital Course Hospital Course: Chief Complaint: foot infection 82-year-old male with history of hypertension, [id number] type 2 diabetes, CKD stage 3, history SVT, aortic stenosis, history osteomyelitis R great toe, and diabetic polyneuropathy presenting to the ED earlier today for evaluation of a left foot infection. The patient has been following at [facility] for several years for management of a nonhealing ulcer on the plantar surface of the left foot. He states for the last week or so, there has been purulent drainage as well as redness and swelling of the foot. Last night developed a blood blister between the 1st and 2nd toes. He denies any pain in the foot. He denies any fevers or chills. He reports he has been hospitalized in the past for diabetic foot infection. Reports last hemoglobin A1c was 6.2% in glucose levels at home are well controlled. Denies any history of cigarette smoking. No alcohol use or illicit drug use. He did present to the ER 4 days ago and was recommended for admission but he left against medical advice due to home circumstances and was discharged on oral antibiotics which did not improve symptoms. On arrival, patient is slightly tachycardic at 01:02 but afebrile, vitals otherwise stable. He has a leukocytosis of 20.0. Renal function baseline, electrolyte levels normal except for CO2 17. Glucose 272. CRP 32.36, ESR 98. X-ray of the left foot shows soft tissue gas with soft tissue swelling proximal phalanx 1st digit suspicious for abscess or cellulitis but no underlying periosteal or bony abnormality to suspect osteomyelitis. In the ED, has been given sepsis fluids, 3.2 L IV NS, 3.375 g IV Zosyn, and IV vancomycin. Hospital course: This patient who has been dealing with diabetes for an extended period and has had a previous foot ulcer due to diabetes came to the hospital with a new ulcer on their right foot with abscess. Initially, there was concern about osteomyelitis of the foot, so the patient was started on broad-spectrum antibiotics, specifically Zosyn and Vancomycin. However, after performing an MRI, no evidence of osteomyelitis was found. Given the complex situation, expert consultations were sought from infectious disease and vascular surgery specialists. The patient is scheduled to undergo Incision and Drainage the following day, performed by Dr. Hernandez. Subsequently, the patient was also evaluated by infectious disease specialist Dr. Aleman, who recommended a six-week course of long-term antibiotic therapy. During their hospital stay, the patient had already received 14 days of Vancomycin and Zosyn (10 days) and four days of Meropenem. Upon discharge, they will continue treatment with Invanz as per the infectious disease specialist's recommendation, extending the antibiotic course for an additional 28 days until April 14, 2023. The wound is currently being treated with daily wet dressings, and it is advised that the patient follows up with the wound clinic on an outpatient basis. #PAD--The patient underwent the following procedures: Ultrasound-guided access to the right common femoral artery.An aortogram with assessment of left lower extremity blood flow.Angioplasty performed on the left anterior tibial and peroneal arteries. Following the angioplasty, the patient experienced persistent oozing from the right groin for nearly four days. This issue was eventually resolved through the application of a pressure dressing. During this period, the use of ASA and Plavix was temporarily suspended but has since been resume #Pneumonia - The patient was treated with the same antibiotics as previously mentioned. Initially, he required oxygen support but have now successfully weaned off it and are clinically recovered. #Non-insulin dependent type 2 diabetes - He will resume their previous medications and adhere to a diabetic diet. #HTN - The patient's blood pressure was elevated, so their Metoprolol dosage was increased to 50 mg, and Nifedipine was adjusted from 90 mg to 120 mg. #History of SVT - The patient is presently in sinus rhythm and will continue to take beta-blockers and calcium channel blockers. #Regurgitating food, history of stricture - The patient has been evaluated by a slime plant operator who recommends current compensatory mechanisms and speech-language pathology recommend continue regular diet #CKD stage 3 - The patient's creatinine levels have increased from 2.8 to 3.1. has been stable Time Spent with Patient Time attestation: Total time managing care of this patient today ____ minutes. Discharge coordination time: Greater than 30 minutes Quality: Safe Use of Opioids Does Pt have an Active Cancer Diagnosis on the Problem List?: No Quality: Stroke Does the patient have a stroke diagnosis?: No Physical Exam Vital Signs: Vital Signs: Last Vital Signs Temp 98.2 F 03/17/23 07:39 Pulse 58 03/17/23 07:39 Resp 18 03/17/23 07:39 BP 152/70 H 03/17/23 07:39 Pulse Ox 97 03/17/23 07:39 O2 Del Method Room Air 03/17/23 07:39 O2 Flow Rate 1 03/12/23 04:36 FiO2 70 03/05/23 07:51 BMI result Body Mass Index 29.5 DS: Data Data Completed and Pending Completed studies during hospitalization [Text1]: Procedures Insertion of Infusion Device into Superior Vena Cava, Percutaneous Approach (12/03/20) Insertion of Tunneled Vascular Access Device into Chest Subcutaneous Tissue and Fascia, Percutaneous Approach (12/03/20) Labs on day of discharge: Laboratory Results - last 24 hr 03/16/23 03/16/23 03/16/23 11:21 16:33 20:38 POC Glucose 132 H 119 H 167 H 03/17/23 07:27 POC Glucose 119 H Discharge Plan Discharge Anticipated Discharge Date/Time: 03/17/23 12:16 Patient Disposition: Home Health Service Discharge Diagnosis: Diabetic Foot Ulcer Referrals: Jos Mirza MD [Primary Care Provider] - 1 Week Discharge Medications: New ertapenem 1 gram recon soln 500 mg IM Q24H Qty: 28 0RF nifedipine 60 mg Tablet Extended Release 24hr 120 mg PO BEDTIME Qty: 30 0RF metoprolol succinate 50 mg Tablet Extended Release 24 Hr 50 mg PO DAILY Qty: 30 0RF Protocol: Hold for SBP/HR < HOLD for SBP < : 90 HOLD for HR < : 60 Continued vitamin B complex [B Complex-Vitamin B12] Tablet 1 tab PO DAILY calcium carbonate [Calcium 600] 600 mg calcium (1,500 mg) tablet 600 mg PO DAILY cholecalciferol (vitamin D3) 25 mcg (1,000 unit) capsule 25 mcg PO DAILY ascorbic acid (vitamin C) 1,000 mg tablet 500 mg PO DAILY omega-3 fatty acids [Fish Oil Concentrate] 1,000 mg capsule 1,000 mg PO DAILY Discontinued metoprolol succinate 25 mg tablet extended release 24 hr 25 mg PO DAILY Qty: 90 3RF doxycycline hyclate 100 mg tablet 100 mg PO BID Qty: 20 0RF nifedipine 90 mg tablet extended release 90 mg PO BEDTIME Discharge Orders: Discharge Order (Routine); Ordered 03/17/23 Ordered By: Jaime Leary Diet: Diabetic diet Activity on Discharge: As tolerated Stand Alone Forms: Patient Portal Discharge page Care Plan Goals: Recovery from foot wound Health Concerns: Diabetic foot ulcer Peripheral arterial disease Plan of Treatment: Ertapenem IV 500 mg daily ending April 14, 2023 Silver Alginate dressing to the wound daily Assessment: Patient with diabetic foot ulcer that is requiring long term antibiotics and stated above
[2023-03-17] MEDS: Ertapenem Sodium 0.5 GM in 0.9 % Sodium Chloride 50 ML IV (11:06)
[2023-03-17] MEDS: Clopidogrel Bisulfate 75 MG TABLET PO (11:10)
--- NOTE | 2023-03-17 11:52 | MHC.SL.DTX ---
Dysphagia Diet modifications: Last documented Solid diet consistencies: Regular Last documented Liquid consistency: Thin Last documented Medication Administration: Changes made to current diet?: Liquid Consistency and Strategies: Liquid Intake Recommendation: Thin Compensatory Strategies for Safe Swallow: Small Sips Compensatory Strategies for Safe Swallow(b): Sitting Upright (90 deg) Small Bites and Sips Alternate Liquids/Solids Rate of Ingestion Change Avoid Specific Foods Solid Food Consistency: Dietary Recommendations: Regular Additional Modifications to Solids: Pt seen for bedside dysphagia evaluation. [facility] unremarkable. Pt consumed dry frank crackers and sips of water, with no overt s/s of aspiration and complete oral clearance. Oral and pharyngeal phase of swallow deemed to be WFL. Pt reports expectoration of foam and at times bits of food. He says that he does not notice having more trouble with specific foods and that this occurs at random. Per MD, pt has hx regurgitating food and esophageal stricture. We discussed safe eating behaviors given pt's complaints which are consistent w/esophageal phase dysphagia- upright 90 degree position during meal and for at least 45 minutes afterwards, small bites/sips, alternate bites/sips, avoid eating for at least 60-90 minutes before going to sleep or laying down. Pt reports he eats small portions frequently throughout the day. Recommend pt continue on REGULAR texture diet with THIN liquids, as pt reports being able to self-select appropriate foods. Pills WHOLE in LIQUID. ABA TUTOR to f/u 1x. Oral Medication Intake: Whole with Liquid Strategies and Precautions to be Taken for Safe Swallow: Sitting Upright (90 deg) Small Bites and Sips Alternate Liquids/Solids Rate of Ingestion Change Avoid Specific Foods Supervision While Eating and/Drinking: None Needed Foods to Avoid: Hard, tough solids; sticky textures Swallowing Recommended Treatments: Compens. Strategy Educat. Level of Impact on: Daily activities: Interpersonal interactions: Education: Employment: Community: Prognosis for Improvement: Recommendation for Speech: Inpatient Speech Therapy Comment: 1 f/u Frequency/Duration: Date Range for Service Req: Timeline to reassess: Additional Comments: Treatment: Pt seen at bedside. He verbalizes back esophageal dysphagia recommendations independently. He reports that he did fine over the weekend, but had little appetite which is now resolved reporting that he ate all of dinner and breakfast this morning. He demonstrated toleration of a chicken salad sandwich with adequate oral preparation and clearance. He reports no discomfort after finishing half of the sandwich. He intermittently sip Thin Liquids with no overt s/s of aspiration and no discomfort reported. Per Pt, he has no way of predicting when his difficulties will arise. He verbalizes understanding of recommendations and has no new requests. No further ABA TUTOR intervention required at this time. Assessment: [place] Clinican/Clinical Fellow: No Supervisory Statement: I have reviewed and agree with the student/clinical fellow's documentation: N/A Speech Language Pathologist: Rojelio Ribeiro M.A., [facility]-ABA TUTOR
--- NOTE | 2023-03-17 12:50 | W.MHC.F2F ---
Service Date Service Date: 03/17/23 Encounter Date of encounter: 03/17/23 Reasons for Services Signs and symptoms assessed: Diabetic foot ulcer, needs long IV antibitiocs Homebound: Leaving the home is medically contraindicated at this time without the asist of a device and/or another person due th the listed conditions above and below. Reason homebound: unsteady gait / fall risk and pain with ambulation Homebound supporting statement: homeboud due to diabetic foot ulcer, making ambulation difficult and therefore needs the assistance of another person Certification: Based on the above findings, I certify that this patient is confined to the home and needs intermittent long-term care, physical therapy and/or speech therapy, or continues to need occupational therapy. The patient is under my care, and I have initiated the establishment of the plan of care. The patient will be followed by a physician who will periodically review the plan of care. Time Spent With Patient Time: Total time managing care of this patient today ____ minutes.
--- NOTE | 2023-03-17 15:03 | MHC.CM.PN ---
Pt is medically cleared for D/C home with new [facility] and [facility] infusion for IV antibiotics. Pts granddaughter to transport him home.
--- NOTE | 2023-03-18 07:30 | P.CDIM_ITS ---
PROVIDER RESPONSE TEXT: To clarify, the appropriate diagnosis supported by the clinical indicators: CKD Stage 3 QUERY TEXT: PHYSICIAN'S DOCUMENTATION REQUEST Date of Query: 03/12/2023 08:39 AM EDT Patient Name: Karthikeyan Lazo Admit Date: 03/04/2023 Dear Jaime Leary, A review of the medical record indicates additional documentation may be needed. Please review below and update the documentation accordingly. Clinical Indicators: Nephrology consultation note 03/06 - Patient is well known to me with advanced chronic stage 4 kidney disease. Nephrology progress notes 03/07 & 03/08 & 03/09 & 03/10 - Plan: CKD 4: c/w DN/HTN renal dis. Progress notes: CKD 3, renal function baseline, nephrology following. Please clarify which of the following accurately represents the patient's renal status: CKD Stage 3 CKD Stage 4 Other Other (explain)Clinically unable to determine (explain)Thank you, Edna Burton, CCS, CDIS Use of terms such as suspected, likely, concern for, or probable (associated with a specific diagnosi s that is being evaluated, monitored, or treated as if it exists) are acceptable and can be coded in the inpatient se tting, when documented at the time of discharge. Please use your independent medical judgment in providing your response. THIS QUERY IS PART OF THE PERMANENT MEDICAL RECORD
--- NOTE | 2023-03-18 07:37 | P.CDIM_ITS ---
PROVIDER RESPONSE TEXT: To clarify, the appropriate diagnosis supported by the clinical indicators: Acute systolic Congestive heart failure QUERY TEXT: PHYSICIAN'S DOCUMENTATION REQUEST Date of Query: 03/12/2023 10:11 AM EDT Patient Name: Karthikeyan Lazo Admit Date: 03/04/2023 Dear Jaime Laery, A review of the medical record indicates additional documentation may be needed. Please review below and update the documentation accordingly. Clinical Indicators: H7P: 03/04 - Assessment and plan-CHF exacerbation BNP 558 H - Acute hypoxic respiratory failure secon primitivo to fluid overload related to congestive heart failure No known history of CHF IV Lasix Cardiology consult note 03/05 - coughing and developed hypoxia in Ed and was thought to have pneumoni a and congestive heart failure. Chest x-ray showing some cephalization and was given IV fluid boluses in the Ed so I suspect that he developed mild congestive heart failure due to that. Nephrology consult notes: Assessment and plan - CHF exacerbation Please provide further specificity regarding the most likely type and acuity of CHF you are evaluatin g, treating, or monitoring. Acute systolic Congestive heart failure Acute diastolic Congestive heart failure Acute combined systolic/diastolic Congestive heart failure Other specifics to the Congestive heart failure please specify Other (explain)Clinically unable to determine (explain)Thank you, Edna Burton, CCS, CDIS Use of terms such as suspected, likely, concern for, or probable (associated with a specific diagnosi s that is being evaluated, monitored, or treated as if it exists) are acceptable and can be coded in the inpatient se tting, when documented at the time of discharge. Please use your independent medical judgment in providing your response. THIS QUERY IS PART OF THE PERMANENT MEDICAL RECORD
== END 2023-03-17 15:00 | disposition home health service (06) | DRG 853 ==
LOC: HO.ED 11:07 → HO.EDOVER 12:51 → HO.IMC 03-05 14:13 → HO.S3 03-06 19:57 → HO.IMC 03-07 13:34
PROVIDERS: Physician Assistant; Physician Assistant Surgical; Surgery Vascular Surgery; Admitting Provider Physician Assistant; Emergency Provider Emergency Medicine Emergency Medical Services; PCP Internal Medicine; Visit Provider Internal Medicine
PROC: 047U3Z1 Dilation of Left Peroneal Artery using Drug-Coated Balloon, Percutaneous Approach (ICD-10-PCS; principal; 2023-03-11 07:30)
DX: A41.9 Sepsis, unspecified organism (principal); I50.21 Acute systolic (congestive) heart failure; J18.9 Pneumonia, unspecified organism; J96.01 Acute respiratory failure with hypoxia; I13.0 Hypertensive heart and chronic kidney disease with heart failure and stage 1 through stage 4 chronic kidney disease, or unspecified chronic kidney disease; L02.612 Cutaneous abscess of left foot; L97.429 Non-pressure chronic ulcer of left heel and midfoot with unspecified severity; I47.10 Supraventricular tachycardia, unspecified; M86.9 Osteomyelitis, unspecified; E11.69 Type 2 diabetes mellitus with other specified complication; E11.51 Type 2 diabetes mellitus with diabetic peripheral angiopathy without gangrene; E11.42 Type 2 diabetes mellitus with diabetic polyneuropathy; I70.244 Atherosclerosis of native arteries of left leg with ulceration of heel and midfoot; N25.0 Renal osteodystrophy; I35.0 Nonrheumatic aortic (valve) stenosis; E11.22 Type 2 diabetes mellitus with diabetic chronic kidney disease; E11.65 Type 2 diabetes mellitus with hyperglycemia; N18.30 Chronic kidney disease, stage 3 unspecified; Z91.040 Latex allergy status; Z79.899 Other long term (current) drug therapy
CPT/HCPCS: 36415; 36558; 37228; 37232; 71045; 73620; 73720; 76937; 80048; 80053; 80202; 82565; 82947; 83605; 83735; 83880; 84484; 85007; 85025; 85027; 85610; 85652; 85730; 86140; 86850; 86900; 86901; 87040; 87449; 87899; 92610; 93005; 93926; 99152; 99153; 99285; A9585; C1725; C1751; C1769; C1887; J1335; J1642; J1643; J1940; J2185; J2543; J3370

== ENCOUNTER 2023-03-04 12:31 | Outpatient (BNV) | payer MEDICARE, SELFPAY | END 2023-03-16 08:21 | PROVIDERS: Admitting Provider Physician Assistant; Emergency Provider Emergency Medicine Emergency Medical Services; PCP Internal Medicine; Visit Provider Radiology Vascular & Interventional Radiology | DX: A41.9 Sepsis, unspecified organism (principal) | CPT/HCPCS: 36558; 76937 ==

== ENCOUNTER → 2023-03-04 12:31 | Outpatient (BNV) | payer MEDICARE, SELFPAY | PROVIDERS: Admitting Provider Physician Assistant; Emergency Provider Emergency Medicine Emergency Medical Services; PCP Internal Medicine; Visit Provider Physician Assistant | DX: J18.9 Pneumonia, unspecified organism (principal); L03.116 Cellulitis of left lower limb | CPT/HCPCS: 99223; 99232; 99233; 99239; 99499; G0180 ==

== ENCOUNTER → 2023-03-04 12:31 | Outpatient (BNV) | payer MEDICARE, SELFPAY | PROVIDERS: Admitting Provider Physician Assistant; Emergency Provider Emergency Medicine Emergency Medical Services; PCP Internal Medicine; Visit Provider Surgery Vascular Surgery | DX: E11.621 Type 2 diabetes mellitus with foot ulcer (principal); L97.528 Non-pressure chronic ulcer of other part of left foot with other specified severity; L08.9 Local infection of the skin and subcutaneous tissue, unspecified | CPT/HCPCS: 37228; 37232; 75625; 75710; 76937; 99152; 99222; 99232 ==

== ENCOUNTER → 2023-03-04 12:31 | Outpatient (BNV) | payer MEDICARE, SELFPAY | PROVIDERS: Admitting Provider Physician Assistant; Emergency Provider Emergency Medicine Emergency Medical Services; PCP Internal Medicine; Visit Provider Internal Medicine | DX: E11.628 Type 2 diabetes mellitus with other skin complications (principal); L08.9 Local infection of the skin and subcutaneous tissue, unspecified | CPT/HCPCS: 99222 ==

== ENCOUNTER → 2023-03-04 12:31 | Outpatient (BNV) | payer MEDICARE, SELFPAY | PROVIDERS: Admitting Provider Physician Assistant; Emergency Provider Emergency Medicine Emergency Medical Services; PCP Internal Medicine; Visit Provider Internal Medicine Cardiovascular Disease | DX: J18.9 Pneumonia, unspecified organism (principal); I50.9 Heart failure, unspecified; E11.628 Type 2 diabetes mellitus with other skin complications; L08.9 Local infection of the skin and subcutaneous tissue, unspecified | CPT/HCPCS: 99222; 99232 ==

== ENCOUNTER 2023-03-27 09:00 | Outpatient (RCR) | payer MEDICARE, OTHER, SELFPAY | END 2023-07-22 13:02 | disposition home or self-care (01) | LOC: HO.WCC 09:00 | PROVIDERS: PCP Internal Medicine; Visit Provider Surgery | DX: E11.621 Type 2 diabetes mellitus with foot ulcer (principal); L89.899 Pressure ulcer of other site, unspecified stage; E11.69 Type 2 diabetes mellitus with other specified complication; M86.171 Other acute osteomyelitis, right ankle and foot; Z79.899 Other long term (current) drug therapy | CPT/HCPCS: 11042; 11043; 11044; 73630; 87070; 87073; 87077; 87186; 87205; 88304; 88305; 88311; 99212 ==

== ENCOUNTER 2023-04-02 14:23 | Outpatient (AMB) | payer MEDICARE, SELFPAY ==
--- NOTE | 2023-04-02 14:25 | A.OFFVIS_ITS ---
Intake Intake Visit Reasons: 2 wk follow up Left Angio 03/11/2023, DC 03/18/23 Intake Note: 2 week fu left angio 03/11/23 pt states he is doing great and leg feels good he has no issues at the momment Accompanied by: Spouse Allergies latex Adverse Reaction (Unknown, Uncoded 02/28/23 21:55) itchy since picc line has been put in HPI 2 wk follow up Left Angio 03/11/2023, DC 03/18/23 HPI Details Very pleasant 82-year-old gentleman presents for follow-up status post left lower extremity angiogram and nonhealing ulcer of the left great toe. He currently is having IV antibiotic therapy with ertapenem. Overall doing fairly well. He did have endovascular intervention on 03/11/2023. He now presents for routine follow-up. [facility] Medical History (Updated 04/03/23 @ 10:35 by Aleks Jewell MD) PAD (peripheral artery disease) CKD (chronic kidney disease) stage 4, GFR 15-29 ml/min HTN (hypertension) Osteomyelitis Sepsis Diabetic neuropathy History of osteomyelitis Aortic stenosis Cellulitis of foot Heart murmur Kidney disease Diabetes Surgical History Hx of colonoscopy Hx of esophagogastroduodenoscopy History of hammer toe correction (~05/2021) Family History Father Heart attack CVD (cardiovascular disease) Mother Colon cancer Social History Household Members: Spouse Housing: House Do you presently have visiting nurse or other home services: No Unable to assess alcohol history related to: Unable to respond Alcohol intake: never Patient Tobacco Use Status: Never used Tobacco service: No Current occupational status: retired Review of Systems Const All systems reviewed & are unremarkable except as noted in HPI and below Reports no additional complaints ENT Reports Normal hearing present Card Denies chest pain, Denies chest pain at rest, Denies chest pain with activity and Denies pedal edema Resp Denies cough GI Denies abdominal pain Musc Denies abnormal gait, Denies muscle cramps and Denies radiating pain into limb Skin/Breast Denies skin ulcer and Denies wounds Neuro Reports Normal hearing present and Denies abnormal gait Psych Reports no additional complaints Physical Exam Const General: cooperative, healthy appearing and comfortable Orientation/consciousness: oriented to person, oriented to place and oriented to time HEENT Head: Yes normal to inspection Neck Neck: Yes normal visual inspection Carotids: no bruits Chest Chest palpation & inspection: normal inspection of the chest Resp Effort & Inspection: normal respiratory effort and able to speak in complete sentences Auscultation: clear to auscultation bilaterally, no crackles, no rales, no rhonchi and no wheezes Cardio Other: Left DP signal Rate: regular rate Rhythm: regular rhythm Heart sounds: S1 normal heart sound present and S2 normal heart sound present Bruits: no carotid bruits Peripheral pulses: Peripheral pulses 2+ throughout GI Inspection: Yes normal to inspection Skin Other: Nonhealing ulcer left great toe Wounds: no wounds Hair: normal Neuro General: oriented to person, oriented to place and oriented to time Cranial nerves: Yes CN's II-XII intact bilaterally and Yes Normal hearing present Cognition (Neuro): normal cognition Motor exam (neuro): 5/5 motor strength present throughout Extrem Other: venous exam: No significant superficial varicosities or spider telangiectasias, minimal edema General: No clubbing, No cyanosis and No edema Psych Appearance: grossly normal Mental Status: mental status grossly normal Speech and movement: Normal speech and movement present Assessment & Plan Assessment & Plan (1) PAD (peripheral artery disease): Comment: 03/11/2023 - left anterior tibial and peroneal arteries plasty Code(s): I73.9 - Peripheral vascular disease, unspecified Plan: In short patient has done well since endovascular intervention. We will continue to try to heal the wound. He will require 3 month arterial surveillance follow-up regarding his endovascular treatment. Continue aspirin and Plavix. (2) Diabetic foot infection: Comment: foot infection, he is improving Code(s): E11.628 - Type 2 diabetes mellitus with other skin complications; L08.9 - Local infection of the skin and subcutaneous tissue, unspecified Plan: He is doing well with this wound. [facility] He will follow up with us in approximately 2-3 weeks time to ensure we are progressing well. We will continue to monitor this wound as well. Thank you for allowing us to assist in his care. Coding Level of Care Code Est Pt Level 3 (03043) Diagnoses PAD (peripheral artery disease) I73.9 Diabetic foot infection E11.628; L08.9
== END 2023-04-02 15:06 | disposition home or self-care (01) ==
PROVIDERS: PCP Internal Medicine; Visit Provider Surgery Vascular Surgery
DX: I73.9 Peripheral vascular disease, unspecified (principal); E11.628 Type 2 diabetes mellitus with other skin complications; L08.9 Local infection of the skin and subcutaneous tissue, unspecified
CPT/HCPCS: 99213

== ENCOUNTER → 2023-04-02 14:23 | Outpatient (BNVA) | payer MEDICARE, OTHER, SELFPAY | PROVIDERS: PCP Internal Medicine; Visit Provider Surgery Vascular Surgery | DX: I73.9 Peripheral vascular disease, unspecified (principal); E11.628 Type 2 diabetes mellitus with other skin complications; L08.9 Local infection of the skin and subcutaneous tissue, unspecified | CPT/HCPCS: 99212 ==

== ENCOUNTER 2023-04-06 15:05 | Outpatient (AMB) | payer MEDICARE, SELFPAY ==
--- NOTE | 2023-04-06 15:04 | A.OFFVIS_ITS ---
Intake Vital Signs 04/06/23 15:18 Height 6 ft 3 in Weight 219 lb BMI 27.4 BP 151/65 H Pulse 63 Pulse Source Pulse Oximeter Intake Visit Reasons: Ref.[facility],Diabetic foot infection Allergies latex Adverse Reaction (Unknown, Uncoded 04/06/23 15:04) itchy since picc line has been put in HPI Ref.[facility],Diabetic foot infection HPI Details He is doing well with no complaints left foot. He has no concerns. [facility] Medical History PAD (peripheral artery disease) CKD (chronic kidney disease) stage 4, GFR 15-29 ml/min HTN (hypertension) Osteomyelitis Sepsis Diabetic neuropathy History of osteomyelitis Aortic stenosis Cellulitis of foot Heart murmur Kidney disease Diabetes Surgical History Hx of colonoscopy Hx of esophagogastroduodenoscopy History of hammer toe correction (~05/2021) Family History Father Heart attack CVD (cardiovascular disease) Mother Colon cancer Household Members: Spouse Housing: House Do you presently have visiting nurse or other home services: No Unable to assess alcohol history related to: Unable to respond Alcohol intake: never Patient Tobacco Use Status: Never used Tobacco Advance Directives: Yes Advance Directives on File: Yes Advance Directives Date on File: 04/14/23 service: No Current occupational status: retired Review of Systems Const All systems reviewed & are unremarkable except as noted in HPI and below Physical Exam Vital Signs: Last Vital Signs Pulse 63 04/06/23 15:18 BP 151/65 H 04/06/23 15:18 BMI result Body Mass Index 27.4 Const General: cooperative Orientation/consciousness: patient oriented x3 HEENT Head: Yes normal to inspection Mouth: Normal oral and palatal mucosa present Eyes General: appearance normal, both eyes and all related structures Pupils: Equal, round and reactive pupils present Resp Effort & Inspection: normal respiratory effort Cardio Rate: regular rate Rhythm: regular rhythm GI Palpation (GI): Soft to palpation and nontender General: Yes no CVA tenderness Back/Spine/Pelvis Back: no CVA tenderness Skin General skin exam: no rashes or lesions noted Neuro General: patient oriented x3 Cranial nerves: Yes CN's II-XII intact bilaterally and Yes Equal, round and reactive pupils present Extrem General: Yes normal to inspection Psych Appearance: grossly normal Assessment & Plan Assessment & Plan (1) Diabetic foot infection: Comment: foot infection, he is improving Code(s): E11.628 - Type 2 diabetes mellitus with other skin complications; L08.9 - Local infection of the skin and subcutaneous tissue, unspecified Plan: Finish antibiotics. See again if needed. Orders: Orders IR cvc remove any age 1104/06/23 E11.628 - Type 2 diabetes mellitus with other skin complications, L08.9 - Local infection of the skin and subcutaneous tissue, unspecified Coding Level of Care Code Est Pt Level 3 (49960) Diagnoses Diabetic foot infection E11.628; L08.9
[2023-04-06 15:18] VITALS: BP 151/65; PULSE 63; BMI 27.4
== END 2023-04-06 16:22 | disposition home or self-care (01) ==
PROVIDERS: PCP Internal Medicine; Visit Provider Internal Medicine
DX: E11.628 Type 2 diabetes mellitus with other skin complications (principal); L08.9 Local infection of the skin and subcutaneous tissue, unspecified
CPT/HCPCS: 99213

== ENCOUNTER → 2023-04-06 15:05 | Outpatient (BNVA) | payer MEDICARE, OTHER, SELFPAY | PROVIDERS: PCP Internal Medicine; Visit Provider Internal Medicine | DX: E11.628 Type 2 diabetes mellitus with other skin complications (principal); L08.9 Local infection of the skin and subcutaneous tissue, unspecified | CPT/HCPCS: 99212 ==

== ENCOUNTER → 2023-04-14 11:18 | Day surgery (SDC) | payer MEDICARE, OTHER, SELFPAY ==
--- NOTE | ~2023-04-14 | IR_ITS ---
TIAN REMOVAL Patient presents with a tunneled central line. Patient no longer requires IV antibiotic. Referring physician requests removal. The right chest suture was cut. Using gentle traction, the Tian was removed entirely from the right chest wall. Pressure was held until hemostasis was assured. A dry sterile dressing was applied at the catheter entry site and secured with a Tegaderm. There were no immediate complications. IR/IR cvc remov tunnel wo prt/medical laboratory manager IMPRESSION: Uncomplicated Right Tian removal This procedure was performed by Jelani Payne PA-C and supervised by Dr. Whitman
== END ==
LOC: HO.RADIR 11:19
PROVIDERS: PCP Internal Medicine; Visit Provider Internal Medicine
DX: Z45.2 Encounter for adjustment and management of vascular access device (principal); E11.628 Type 2 diabetes mellitus with other skin complications
CPT/HCPCS: 36589

== ENCOUNTER → 2023-04-14 11:22 | Outpatient (BNV) | payer MEDICARE, SELFPAY | PROVIDERS: PCP Internal Medicine; Visit Provider Radiology Diagnostic Radiology | DX: E11.628 Type 2 diabetes mellitus with other skin complications (principal) | CPT/HCPCS: 36589 ==

== ENCOUNTER 2023-05-20 12:53 | Outpatient (AMB) | payer MEDICARE, SELFPAY ==
--- NOTE | 2023-05-20 13:10 | A.OFFVIS_ITS ---
Intake Vital Signs 05/20/23 13:17 Height 6 ft 3 in Weight 214 lb 4.629 oz BMI 26.8 BP 140/84 H Blood Pressure Location Lt brachial Position Sitting Pulse 80 Intake Visit Reasons: 6 mth Intake Note: 6 month follow-up hearts doing ok Director Inbound Sales Required: No Allergies latex Adverse Reaction (Unknown, Uncoded 04/06/23 15:04) itchy since picc line has been put in Medication List - Last Reconciled 05/20/23 by Issa Degroot MD ascorbic acid (vitamin C) 500 mg PO DAILY cholecalciferol (vitamin D3) 25 mcg PO DAILY metoprolol succinate ER 50 mg See Protocol PO DAILY nifedipine ER 90 mg PO DAILY vitamin B complex (B Complex-Vitamin B12 tablet) 1 tab PO DAILY HPI HPI Comments History of Present Illness Details 82-year-old gentleman here for follow-up . He has background history of chronic kidney disease, hypertension, mild aortic valve stenosis and supraventricular tachycardia versus atrial tachycardia. Clinically doing well. No chest pain or shortness of breath. EKG showing sinus rhythm at this point. He has white coat hypertension. Taking meds regularly. 05/20/2023: He returns for follow-up. I n February 2023 he got admitted to the hospital with pneumonia and was given IV fluids for resuscitation and developed heart failure. He also had episode of atrial tachycardia while he was in the hospital and required amiodarone short term. He was diuresed and improved. He had diabetic foot infection and underwent angiography by vascular surgery with angioplasty of anterior tibial artery and peroneal artery on the left side. He was on aspirin and Plavix but apparently had a lot of groin who is an bleeding and both medications were stopped and it appears he has not started them since then. He also had left eye retinal detachment and underwent surgical treatment for that. He is following closely with orthopedic cast specialist. [facility] Medical History PAD (peripheral artery disease) CKD (chronic kidney disease) stage 4, GFR 15-29 ml/min HTN (hypertension) Osteomyelitis Sepsis Diabetic neuropathy History of osteomyelitis Aortic stenosis Cellulitis of foot Heart murmur Kidney disease Diabetes Surgical History Hx of colonoscopy Hx of esophagogastroduodenoscopy History of hammer toe correction (~05/2021) Family History Father Heart attack CVD (cardiovascular disease) Mother Colon cancer Social History Household Members: Spouse Housing: House Do you presently have visiting nurse or other home services: No Unable to assess alcohol history related to: Unable to respond Alcohol intake: never Patient Tobacco Use Status: Never used Tobacco Advance Directives Date on File: 04/14/23 service: No Current occupational status: retired Review of Systems Const Denies chills, Denies fatigue, Denies fever(s), Denies frequent falls, Denies weakness, Denies weight gain and Denies weight loss ENT Denies dizziness Card Denies chest pain, Denies leg edema, Denies lightheadedness, Denies palpitations, Denies dyspnea, Denies dyspnea on exertion, Denies orthopnea and Denies other (loss of consciousness) Resp Denies cough, Denies dyspnea and Denies dyspnea on exertion GI Denies hematochezia and Denies change in stool character Musc Denies abnormal gait, Denies muscle weakness, Denies numbness, Denies radiating pain into limb and Denies tingling Neuro Denies abnormal gait, Denies dizziness, Denies frequent falls, Denies numbness, Denies tingling and Denies weakness Endo Denies fatigue and Denies palpitations Physical Exam Vital Signs: Last Vital Signs Pulse 80 05/20/23 13:17 BP 140/84 H 05/20/23 13:17 BMI result Body Mass Index 26.8 GENERAL APPEARANCE: in no acute distress, pleasant. NECK: no carotid bruit, no jugular venous distention. SKIN: no suspicious lesions, warm and dry. HEART: Ejection systolic murmur aortic area with preserved 2nd heart sound, regular rate and rhythm. LUNGS: Clear to auscultation. ABDOMEN: soft, nontender. EXTREMITIES: No significant edema. PERIPHERAL PULSES: equal. NEUROLOGIC: No gross deficits, AAO X 3 Assessment & Plan Assessment & Plan (1) Aortic stenosis: Code(s): I35.0 - Nonrheumatic aortic (valve) stenosis (2) Hypertension: Code(s): I10 - Essential (primary) hypertension (3) PAD (peripheral artery disease): Comment: 03/11/2023 - left anterior tibial and peroneal arteries plasty Code(s): I73.9 - Peripheral vascular disease, unspecified Plan Pleasant 82 year gentleman with background history of aortic stenosis, hypertension peripheral vascular disease. He has moderate aortic valve stenosis based on echocardiography. Recent admission to hospital with pneumonia and was fluid resuscitated and developed congestive heart failure for which she received diuretics. Also developed atrial tachycardia for which she was given amiodarone in the hospital and converted to sinus rhythm. Amiodarone was discontinued at the time he was discharged from hospital. He also had angioplasty of anterior tibial artery and peroneal artery on the left side for nonhealing diabetic foot ulceration. He was started on aspirin Plavix but it appears he had a lot of groin oozing and bleeding an aspirin and Plavix were held and it appears there were no resumed. I have advised him that he should be on Plavix 75 mg once a day. He just had eye surgery for retinal detachment and I am unsure whether more procedures are coming up and how does Plavix therapy affect that. I have advised him to discuss with his orthopedic cast specialist and if he is agreeable he should start taking Plavix 75 mg once a day. Thank you for allowing me to participate in the care of your patient. Please feel free to contact me if you have any questions. Medications: New clopidogrel 75 mg PO DAILY 90 tabs 3RF I73.9 - Peripheral vascular disease, unspecified Coding Level of Care Code Est Pt Level 4 (61412) Diagnoses Aortic stenosis I35.0 Hypertension I10 PAD (peripheral artery disease) I73.9
[2023-05-20 13:17] VITALS: BP 140/84; PULSE 80; BMI 26.8
== END 2023-05-20 13:53 | disposition home or self-care (01) ==
PROVIDERS: PCP Internal Medicine; Visit Provider Internal Medicine Cardiovascular Disease
DX: I35.0 Nonrheumatic aortic (valve) stenosis (principal); I10 Essential (primary) hypertension; I73.9 Peripheral vascular disease, unspecified
CPT/HCPCS: 99214

== ENCOUNTER → 2023-05-20 12:53 | Outpatient (BNVA) | payer MEDICARE, OTHER, SELFPAY | PROVIDERS: PCP Internal Medicine; Visit Provider Internal Medicine Cardiovascular Disease | DX: I35.0 Nonrheumatic aortic (valve) stenosis (principal); I10 Essential (primary) hypertension; I73.9 Peripheral vascular disease, unspecified | CPT/HCPCS: 99212 ==

== ENCOUNTER 2023-06-24 13:57 | Outpatient (REF) | payer MEDICARE, SELFPAY ==
[2023-06-24 14:22] LABS: MANUAL DIFF FLAG NO
[2023-06-24 14:37] LABS: Basophils Absolute Auto 0.1 X10*3/uL (0.0-0.2); Basophils Percent Auto 0.8 % (0-2); Eosinophils Absolute Auto 0.2 X10*3/uL (0.0-0.4); Eosinophils Percent Auto 2.2 % (0-4); Hematocrit 35.5 % (42.0-52.0); Hemoglobin 11.3 g/dl (14.0-18.0); Imm Gran Abs Auto 0.04 X10*3/uL (0.00-0.03); Imm Gran Pct Auto 0.5 % (0.0-0.4); Lymphocytes Absolute Auto 2.1 X10*3/uL (1.2-4.9); Lymphocytes Percent Auto 24.4 % (20-40); Mean Corpuscular HGB Conc 31.8 g/dl (31.0-36.0); Mean Corpuscular Hemoglobin 26.1 pg (27.0-33.0); Mean Platelet Volume 9.5 fL (9.4-12.4); Monocytes Absolute Auto 0.9 X10*3/uL (0.1-1.2); Monocytes Percent Auto 9.9 % (2-11); Neutrophils Absolute Auto 5.4 x10*3/uL (2.0-8.3); Neutrophils Percent Auto 62.2 % (45-73); Platelet Count 294 X10*3/uL (160-400); Red Blood Count 4.33 X10*6/uL (4.60-5.80); Red Cell Distribution Width 14.7 % (11.0-16.0); White Blood Count 8.6 X10*3/uL (4.8-10.8)
[2023-06-24 15:14] LABS: Parathyroid Hormone Intact 112.8 pg/mL (8.7-77.1)
[2023-06-24 15:21] LABS: Albumin Level 3.9 g/dL (3.5-5.0); Anion Gap 11 (12-20); Blood Urea Nitrogen 34 mg/dL (9-16); Carbon Dioxide 21 mmol/L (22-29); Chloride 114 mmol/L (96-108); Estimated Glomerular Filt Rate 29; Potassium 4.3 mmol/L (3.3-5.1); Sodium 142 mmol/L (135-145)
[2023-06-24 16:28] LABS: Appearance Urine Clear; Color Urine Yellow; Glucose Urine UA Negative (Negative); Leukocyte Esterase Urine Negative (Negative); Nitrite Urine Negative (Negative); PH 5.5 (5.0-9.0); Specific Gravity - Urine 1.015 (1.005-1.025); UMIC TRIGGER UA YES; Urine Blood Trace (Negative); Urine Ketones Negative (Negative); Urine Protein 300 (3+) mg/dL (Neg-Trace)
[2023-06-24 16:43] LABS: Bacteria Urine None Seen (None Seen); Hyaline Casts Urine 0-2 /LPF (0-2); RBC Urine 0-2 /HPF (0-2); Squamous Epithelial Cell Urine 0-2 /HPF (0-2); WBC Urine 0-5 /HPF (0-5)
[2023-06-24 17:13] LABS: Microalbum/Creatinine Ratio Ur 2380.9 ug/mg cr (<30); Microalbumin Urine > 2000.0 mg/L
[2023-06-24 17:18] LABS: Protein/Creatinine Ratio, Ur 4.64 (<0.2); Total Protein Urine Random 390 mg/dL (<12)
== END 2023-06-24 13:58 | disposition home or self-care (01) ==
LOC: HO.LAB 13:57
PROVIDERS: PCP Internal Medicine; Visit Provider Internal Medicine Nephrology
DX: E11.21 Type 2 diabetes mellitus with diabetic nephropathy (principal); E11.22 Type 2 diabetes mellitus with diabetic chronic kidney disease; I12.9 Hypertensive chronic kidney disease with stage 1 through stage 4 chronic kidney disease, or unspecified chronic kidney disease; N18.4 Chronic kidney disease, stage 4 (severe)
CPT/HCPCS: 36415; 80051; 81001; 82040; 82043; 82306; 82310; 82565; 82570; 83735; 83970; 84100; 84156; 84520; 85025

== ENCOUNTER 2023-08-05 08:10 | Outpatient (REF) | payer MEDICARE, SELFPAY ==
[2023-08-05 13:29] LABS: Alanine Aminotransferase 19 U/L (0-40); Albumin Level 4.1 g/dL (3.5-5.0); Alkaline Phosphatase 99 U/L (39-117); Anion Gap 13 (12-20); Aspartate Amino Transferase 17 U/L (5-37); Bilirubin Total 0.3 mg/dL (0.0-1.0); Blood Urea Nitrogen 46 mg/dL (9-16); Calcium 9.8 mg/dL (8.4-10.2); Carbon Dioxide 21 mmol/L (22-29); Chloride 110 mmol/L (96-108); Cholesterol 208 mg/dL (<200); Estimated Glomerular Filt Rate 28; Glucose Random 102 mg/dL (60-115); HDL Cholesterol 45 mg/dL (>40); LDL Cholesterol Calculated 137 mg/dL (<100); Potassium 4.4 mmol/L (3.3-5.1); Sodium 140 mmol/L (135-145); Total Protein 8.5 g/dL (6.5-8.0); Triglycerides 133 mg/dL (<150)
[2023-08-05 14:08] LABS: Creatinine Urine 46.28 mg/dL
[2023-08-05 14:18] LABS: Microalbum/Creatinine Ratio Ur 2776.5 ug/mg cr (<30)
[2023-08-05 15:00] LABS: Estimated Average Glucose 128 mg/dL; Hemoglobin A1c % 6.1 % (<6.0)
== END 2023-08-05 08:11 | disposition home or self-care (01) ==
LOC: HO.MANLDS 08:10
PROVIDERS: Visit Provider Internal Medicine
DX: E11.9 Type 2 diabetes mellitus without complications (principal)
CPT/HCPCS: 36415; 80053; 80061; 82043; 82570; 83036

== ENCOUNTER 2023-09-29 08:20 | Outpatient (REF) | payer MEDICARE, SELFPAY ==
--- NOTE | ~2023-09-29 | US_ITS ---
EXAMINATION: US NONINVASIVE ASSESSMENT OF THE ARTERIES OF BOTH LOWER EXTREMITIES INCLUDING PVR EXAM AND BILATERAL LOWER EXTREMITY DUPLEX. CLINICAL INFORMATION: Peripheral vascular disease COMPARISON: MALI 03/17/2018 TECHNIQUE: Ankle pulse volume recordings, ankle pressure measurements and ankle brachial indices were obtained of the lower extremity arterial system bilaterally in addition to duplex Doppler techniques with wave form analysis and measurement of velocities in the common femoral, profunda femoral, superficial femoral, popliteal, tibial and peroneal arteries. The study was performed only at rest. FINDINGS: RIGHT LE. THE RIGHT ANKLE-BRACHIAL INDEX IS: 0.71 >0.97-1.25 = normal - no significant arterial disease 0.75-0.96 = mild peripheral arterial disease 0.5-0.74 = moderate peripheral arterial disease <0.50 = severe peripheral arterial disease <0.30 = critical arterial disease 2. SEGMENTAL PRESSURES (mmHg): Ankle: PT 120 (unable to obtain DPA pressures due to overlying bandages) 3. PVR WAVEFORMS: Ankle: Abnormal 4. DIRECT DUPLEX: Common femoral artery: 72 cm/s, biphasic Profunda femoris artery: 69 cm/s, biphasic Superficial femoral artery (proximal): 99 cm/s, biphasic Superficial femoral artery (mid): 157 cm/s, biphasic Superficial femoral artery (distal): 117 cm/s, monophasic Popliteal artery: 152 cm/s, biphasic Anterior tibial artery: 89 cm/s monophasic Mid posterior tibial artery: 26 cm/s, monophasic Peroneal artery: 70 cm/s, monophasic Dorsalis pedis artery: 73 cm/s, monophasic Enlarged right inguinal lymph node with thickened cortex measuring 3.0 x 1.1 x 2.6 cm. LEFT LE. THE LEFT ANKLE-BRACHIAL INDEX IS: 1.13 >0.97-1.25 = normal - no significant arterial disease 0.75-0.96 = mild peripheral arterial disease 0.5-0.74 = moderate peripheral arterial disease <0.50 = severe peripheral arterial disease <0.30 = critical arterial disease 2. SEGMENTAL PRESSURES: Ankle: PT 1.01, DP 1.13 3. PVR WAVEFORMS: Ankle: Normal 4. DIRECT DUPLEX: Common femoral artery: 99 cm/s, biphasic Profunda femoris artery: 66 cm/s, biphasic Superficial femoral artery (proximal): 94 cm/s, biphasic Superficial femoral artery (mid): 83 cm/s, biphasic Superficial femoral artery (distal): 87 cm/s, biphasic Popliteal artery: 86 cm/s, biphasic Popliteal artery: 33 cm/s, monophasic Anterior tibial artery: 98 cm/s, multiphasic Mid posterior tibial artery: 28 cm/s, monophasic Peroneal artery: 12 cm/s, monophasic Dorsalis pedis artery: 110 cm/s, multiphasic US/US arterial duplex LE BI IMPRESSION: 1. Mild to moderate right lower extremity peripheral vascular disease with elevated velocities and biphasic waveform morphology within the mid/distal SFA to popliteal artery. 2. Patent bilateral lower extremity three-vessel tibial arteries with mild disease. Bilateral dorsalis pedis arteries patent. 3. Abnormally enlarged right inguinal lymph node measuring 3.0 x 1.1 x 2.6 cm with thickened cortex.
== END 2023-09-29 08:21 | disposition home or self-care (01) ==
LOC: HO.US 08:20
PROVIDERS: PCP Internal Medicine; Visit Provider Surgery Vascular Surgery
DX: I73.9 Peripheral vascular disease, unspecified (principal); R59.0 Localized enlarged lymph nodes
CPT/HCPCS: 93923; 93925

== ENCOUNTER 2023-10-13 09:08 | Outpatient (AMB) | payer MEDICARE, SELFPAY ==
--- NOTE | 2023-10-13 09:12 | MHC.OFFVIS ---
Vital Signs 10/13/23 09:15 Height 6 ft 3 in Weight 214 lb BMI 26.7 Intake Visit Reasons: overdue f/u s/p ART US 09/29/23 Intake Note: overdue 3 month follow up Left Angio 03/11/23s/p Arterial US 09/29/23. Pt states bilateral LE feel good, no cramping. Pt recentlt had Right Great toe and partial 2nd toe amp by Dr. Douglas Brito @ [facility] 5 weeks ago. Pt states has VNA 3 times a week for that. Accompanied by: Spouse Allergies latex Adverse Reaction (Unknown, Uncoded 10/13/23 09:18) itchy since picc line has been put in HPI HPI overdue f/u s/p ART US 09/29/23: Details: Very pleasant 83-year-old gentleman presents for follow-up regarding peripheral vascular disease. He had undergone left lower extremity intervention with us. Had an ulcer of the left great toe. He would completed that. In the interim he ended up with a right great toe amp after an infection at [facility]. He now presents for routine surveillance follow-up with noninvasive testing. [facility] Medical History PAD (peripheral artery disease) CKD (chronic kidney disease) stage 4, GFR 15-29 ml/min HTN (hypertension) Osteomyelitis Sepsis Diabetic neuropathy History of osteomyelitis Aortic stenosis Cellulitis of foot Heart murmur Kidney disease Diabetes Surgical History Hx of colonoscopy Hx of esophagogastroduodenoscopy History of hammer toe correction (~05/2021) Family History Father Heart attack CVD (cardiovascular disease) Mother Colon cancer Social History Household Members: Spouse Housing: House Do you presently have visiting nurse or other home services: No Unable to assess alcohol history related to: Unable to respond Alcohol intake: never Patient Tobacco Use Status: Never used Tobacco Advance Directives Date on File: 04/14/23 service: No Current occupational status: retired Review of Systems Const All systems reviewed & are unremarkable except as noted in HPI and below Reports no additional complaints ENT Reports Normal hearing present Card Denies chest pain, Denies chest pain at rest, Denies chest pain with activity and Denies pedal edema Resp Denies cough GI Denies abdominal pain Musc Denies abnormal gait, Denies muscle cramps and Denies radiating pain into limb Skin/Breast Denies skin ulcer and Denies wounds Neuro Reports Normal hearing present and Denies abnormal gait Psych Reports no additional complaints Physical Exam Vital Signs: BMI result Body Mass Index 26.7 Const General: cooperative, healthy appearing and comfortable Orientation/consciousness: oriented to person, oriented to place and oriented to time HEENT Head: Yes normal to inspection Neck Neck: Yes normal visual inspection Carotids: no bruits Chest Chest palpation & inspection: normal inspection of the chest Resp Effort & Inspection: normal respiratory effort and able to speak in complete sentences Auscultation: clear to auscultation bilaterally, no crackles, no rales, no rhonchi and no wheezes Cardio Other: Bilateral DP signals Rate: regular rate Rhythm: regular rhythm Heart sounds: S1 normal heart sound present and S2 normal heart sound present Bruits: no carotid bruits GI Inspection: Yes normal to inspection Skin Other: Dressing on amputation site Wounds: no wounds Hair: normal Neuro General: oriented to person, oriented to place and oriented to time Cranial nerves: Yes CN's II-XII intact bilaterally and Yes Normal hearing present Cognition (Neuro): normal cognition Motor exam (neuro): 5/5 motor strength present throughout Extrem Other: venous exam: No significant superficial varicosities or spider telangiectasias, minimal edema General: No clubbing, No cyanosis and No edema Psych Appearance: grossly normal Mental Status: mental status grossly normal Speech and movement: Normal speech and movement present Results Reviewed Results Reviewed: Noninvasive testing dated 09/29/2023 demonstrates MALI on the right of 0.71 and on the left of 1.13. Written report and images were reviewed. Assessment & Plan Assessment & Plan (1) PAD (peripheral artery disease): Comment: 03/11/2023 - left anterior tibial and peroneal arteries plasty Code(s): I73.9 - Peripheral vascular disease, unspecified Category: Medical Plan: In short patient appears to be having healing amputation site. I did review the pathophysiology of peripheral vascular disease with the patient. In addition we did discuss routine conservative measures including a healthy diet and the importance of exercise and ambulation. We did discuss risk factor modification. The patient will continue to to follow-up with surveillance follow-up in approximately 6 months. Thank you for allowing us to participate in this patient's care. If there are any questions or concerns please do not hesitate to contact us. Orders: Orders US arterial duplex LE BI 6 Months I73.9 - Peripheral vascular disease, unspecified Coding Level of Care Code Est Pt Level 4 (99133) Diagnoses PAD (peripheral artery disease) I73.9
[2023-10-13 09:15] VITALS: BMI 26.7
== END 2023-10-13 09:44 | disposition home or self-care (01) ==
PROVIDERS: PCP Internal Medicine; Visit Provider Surgery Vascular Surgery
DX: I73.9 Peripheral vascular disease, unspecified (principal)
CPT/HCPCS: 99213

== ENCOUNTER → 2023-10-13 09:08 | Outpatient (BNVA) | payer MEDICARE, SELFPAY | PROVIDERS: PCP Internal Medicine; Visit Provider Surgery Vascular Surgery | DX: I73.9 Peripheral vascular disease, unspecified (principal) | CPT/HCPCS: 99212 ==

== ENCOUNTER 2023-10-21 10:06 | Outpatient (AMB) | payer MEDICARE, SELFPAY ==
[2023-10-21 10:12] VITALS: BP 140/50; PULSE 60; O2SAT 97; BMI 23.9
--- NOTE | 2023-10-21 10:12 | A.OFFVIS_ITS ---
Vital Signs 10/21/23 10:12 Height 6 ft 3 in Weight 191 lb BMI 23.9 BP 140/50 H Blood Pressure Location Lt brachial Position Sitting Pulse 60 Pulse Source Pulse Oximeter Pulse Oximetry (%) 97 Intake Visit Reasons: 4 mth f/up Hand Bookbinder Required: No Accompanied by: Spouse Allergies latex Adverse Reaction (Unknown, Uncoded 10/13/23 09:18) itchy since picc line has been put in Medication List - Last Reconciled 10/21/23 by Issa Degroot MD clopidogrel 75 mg PO DAILY hydralazine 25 mg PO TID metoprolol succinate ER 50 mg See Protocol PO DAILY nifedipine ER 90 mg PO DAILY vitamin B complex (B Complex-Vitamin B12 tablet) 1 tab PO DAILY HPI Comments Details: 82-year-old gentleman here for follow-up. He has background history of chronic kidney disease, hypertension, mild aortic valve stenosis and supraventricular tachycardia versus atrial tachycardia. Clinically doing well. No chest pain or shortness of breath. EKG showing sinus rhythm at this point. He has white coat hypertension. Taking meds regularly. 05/20/2023: He returns for follow-up. In February 2023 he got admitted to the hospital with pneumonia and was given IV fluids for resuscitation and developed heart failure. He also had episode of atrial tachycardia while he was in the hospital and required amiodarone short term. He was diuresed and improved. He had diabetic foot infection and underwent angiography by vascular surgery with angioplasty of anterior tibial artery and peroneal artery on the left side. He was on aspirin and Plavix but apparently had a lot of groin who is an bleeding and both medications were stopped and it appears he has not started them since then. He also had left eye retinal detachment and underwent surgical treatment for that. He is following closely with blanket winder helper. 10/21/23: He returns for follow-up. He underwent surgery for retinal detachment and also had cataract surgery. He still has ongoing visual issues and is seeing a retina specialist. He has no chest pains or shortness of breath. He has been fairly inactive due to right great toe amputation. He is following with vascular surgery closely. He is currently taking Plavix 75 mg daily. Blood pressure control is okay. [facility] Medical History PAD (peripheral artery disease) CKD (chronic kidney disease) stage 4, GFR 15-29 ml/min HTN (hypertension) Osteomyelitis Sepsis Diabetic neuropathy History of osteomyelitis Aortic stenosis Cellulitis of foot Heart murmur Kidney disease Diabetes Surgical History Hx of colonoscopy Hx of esophagogastroduodenoscopy History of hammer toe correction (~05/2021) Family History Father Heart attack CVD (cardiovascular disease) Mother Colon cancer Social History Household Members: Spouse Housing: House Do you presently have visiting nurse or other home services: No Unable to assess alcohol history related to: Unable to respond Alcohol intake: never Patient Tobacco Use Status: Never used Tobacco Advance Directives Date on File: 04/14/23 service: No Current occupational status: retired Review of Systems Const Denies chills, Denies fatigue, Denies fever(s), Denies frequent falls, Denies weakness, Denies weight gain and Denies weight loss ENT Denies dizziness Card Denies chest pain, Denies leg edema, Denies lightheadedness, Denies palpitations, Denies dyspnea and Denies dyspnea on exertion Resp Denies cough, Denies dyspnea and Denies dyspnea on exertion GI Denies hematochezia Musc Denies abnormal gait, Denies muscle weakness, Denies numbness, Denies radiating pain into limb and Denies tingling Neuro Denies abnormal gait, Denies dizziness, Denies frequent falls, Denies numbness, Denies tingling and Denies weakness Endo Denies fatigue and Denies palpitations Physical Exam Vital Signs: BMI result Body Mass Index 23.9 GENERAL APPEARANCE: in no acute distress, pleasant. NECK: no carotid bruit, no jugular venous distention. SKIN: no suspicious lesions, warm and dry. HEART: Ejection systolic murmur aortic area with preserved 2nd heart sound, regular rate and rhythm. LUNGS: Clear to auscultation. ABDOMEN: soft, nontender. EXTREMITIES: No significant edema. PERIPHERAL PULSES: equal. NEUROLOGIC: No gross deficits, AAO X 3 Assessment & Plan Assessment & Plan (1) PAD (peripheral artery disease): Comment: 03/11/2023 - left anterior tibial and peroneal arteries plasty Code(s): I73.9 - Peripheral vascular disease, unspecified Category: Medical (2) Aortic stenosis: Code(s): I35.0 - Nonrheumatic aortic (valve) stenosis Category: Medical (3) Hypertension: Code(s): I10 - Essential (primary) hypertension Category: Medical Plan Pleasant 83-year-old gentleman who is here for follow-up. He has background of peripheral vascular disease and underwent right great toe amputation for nonhealing wound/infection. He also has moderate aortic valve stenosis, kidney disease and hypertension. Blood pressure is mildly elevated. He has under a lot of stress due to multiple issues going on with him. Clinically stable. He is denying any fatigue or palpitations. He had episode of atrial tachycardia in the hospital. For now we will closely monitor. If he will complain of any palpitations or tachycardia again then repeat monitoring will be done. On Plavix for peripheral vascular disease. Thank you for allowing me to participate in the care of your patient. Please feel free to contact me if you have any questions. Coding Level of Care Code Est Pt Level 4 (08597) Diagnoses PAD (peripheral artery disease) I73.9 Aortic stenosis I35.0 Hypertension I10
== END 2023-10-21 10:50 | disposition home or self-care (01) ==
PROVIDERS: PCP Internal Medicine; Visit Provider Internal Medicine Cardiovascular Disease
DX: I73.9 Peripheral vascular disease, unspecified (principal); I35.0 Nonrheumatic aortic (valve) stenosis; I10 Essential (primary) hypertension
CPT/HCPCS: 99214

== ENCOUNTER → 2023-10-21 10:06 | Outpatient (BNVA) | payer MEDICARE, OTHER, SELFPAY | PROVIDERS: PCP Internal Medicine; Visit Provider Internal Medicine Cardiovascular Disease | DX: I73.9 Peripheral vascular disease, unspecified (principal); I35.0 Nonrheumatic aortic (valve) stenosis; I10 Essential (primary) hypertension | CPT/HCPCS: 99212 ==

== ENCOUNTER 2023-12-14 10:43 | Outpatient (REF) | payer MEDICARE, SELFPAY ==
[2023-12-14 13:14] LABS: MANUAL DIFF FLAG NO
[2023-12-14 13:18] LABS: Appearance Urine Clear; Color Urine Yellow; Glucose Urine UA Negative (Negative); Leukocyte Esterase Urine Negative (Negative); Nitrite Urine Negative (Negative); PH 5.5 (5.0-9.0); Specific Gravity - Urine 1.015 (1.005-1.025); UMIC TRIGGER UA YES; Urine Blood Negative (Negative); Urine Ketones Negative (Negative); Urine Protein 300 (3+) mg/dL (Neg-Trace)
[2023-12-14 13:21] LABS: Basophils Absolute Auto 0.1 X10*3/uL (0.0-0.2); Basophils Percent Auto 1.2 % (0-2); Eosinophils Absolute Auto 0.2 X10*3/uL (0.0-0.4); Eosinophils Percent Auto 2.6 % (0-4); Hematocrit 34.7 % (42.0-52.0); Hemoglobin 11.1 g/dl (14.0-18.0); Imm Gran Abs Auto 0.04 X10*3/uL (0.00-0.03); Imm Gran Pct Auto 0.5 % (0.0-0.4); Lymphocytes Percent Auto 25.6 % (20-40); Mean Corpuscular Hemoglobin 26.9 pg (27.0-33.0); Mean Platelet Volume 9.8 fL (9.4-12.4); Monocytes Percent Auto 12.7 % (2-11); Neutrophils Absolute Auto 4.4 x10*3/uL (2.0-8.3); Neutrophils Percent Auto 57.4 % (45-73); Platelet Count 312 X10*3/uL (160-400); Red Blood Count 4.13 X10*6/uL (4.60-5.80); Red Cell Distribution Width 15.4 % (11.0-16.0); White Blood Count 7.6 X10*3/uL (4.8-10.8)
[2023-12-14 13:26] LABS: Bacteria Urine None Seen (None Seen); RBC Urine 0-2 /HPF (0-2); Squamous Epithelial Cell Urine 0-2 /HPF (0-2); WBC Urine 0-5 /HPF (0-5)
[2023-12-14 13:34] LABS: Estimated Average Glucose 126 mg/dL
[2023-12-14 13:43] LABS: Creatinine Urine 86.39 mg/dL; Total Protein Urine Random 163 mg/dL (<12)
[2023-12-14 13:49] LABS: Parathyroid Hormone Intact 164.5 pg/mL (8.7-77.1)
[2023-12-14 13:53] LABS: Albumin Level 3.9 g/dL (3.5-5.0); Anion Gap 16 (12-20); Blood Urea Nitrogen 49 mg/dL (9-16); Calcium 9.3 mg/dL (8.4-10.2); Carbon Dioxide 18 mmol/L (22-29); Chloride 111 mmol/L (96-108); Estimated Glomerular Filt Rate 25; Magnesium 1.9 mg/dL (1.6-2.6); Phosphorus 3.5 mg/dL (2.7-4.5); Potassium 5.1 mmol/L (3.3-5.1); Sodium 140 mmol/L (135-145)
[2023-12-14 14:04] LABS: Vitamin D 25-OH Total 51.2 ng/mL (>30)
== END 2023-12-14 10:44 | disposition home or self-care (01) ==
LOC: HO.MANLDS 10:43
PROVIDERS: PCP Internal Medicine; Visit Provider Internal Medicine Nephrology
DX: E11.22 Type 2 diabetes mellitus with diabetic chronic kidney disease (principal); N18.4 Chronic kidney disease, stage 4 (severe)
CPT/HCPCS: 36415; 80051; 81001; 82040; 82306; 82310; 82565; 82570; 83036; 83735; 83970; 84100; 84156; 84520; 85025

== ENCOUNTER 2024-04-14 09:53 | Outpatient (REF) | payer MEDICARE, SELFPAY | END 2024-04-14 09:54 | disposition home or self-care (01) | LOC: HO.US 09:53 | PROVIDERS: PCP Internal Medicine; Visit Provider Surgery Vascular Surgery | DX: I73.9 Peripheral vascular disease, unspecified (principal) | CPT/HCPCS: 93922; 93925 ==

== ENCOUNTER 2024-06-22 13:28 | Outpatient (AMB) | payer MEDICARE, SELFPAY ==
[2024-06-22 13:52] VITALS: BP 130/62; PULSE 60; BMI 22.7
--- NOTE | 2024-06-22 13:52 | A.OFFVIS_ITS ---
Vital Signs 06/22/24 13:52 Height 6 ft 3 in Weight 182 lb BMI 22.7 BP 130/62 Blood Pressure Location Rt brachial Position Sitting Pulse 60 Pulse Source Monitor Intake Visit Reasons: r/s 05/02/24 followup Customer Assistance Representative Required: No Customer Assistance Representative Name: f/up Accompanied by: Other Relationship Allergies latex Adverse Reaction (Unknown, Uncoded 10/13/23 09:18) itchy since picc line has been put in Medication List - Last Reconciled 06/22/24 by Issa Degroot MD clopidogrel 75 mg PO DAILY hydralazine 25 mg PO TID metoprolol succinate ER 50 mg PO DAILY nifedipine ER 90 mg PO DAILY vitamin B complex (B Complex-Vitamin B12 tablet) 1 tab PO DAILY HPI Comments Details: 83-year-old gentleman here for follow-up. He has background history of chronic kidney disease, hypertension, mild aortic valve stenosis and supraventricular tachycardia versus atrial tachycardia. Clinically doing well. No chest pain or shortness of breath. EKG showing sinus rhythm at this point. He has white coat hypertension. Taking meds regularly. 05/20/2023: He returns for follow-up. In February 2023 he got admitted to the hospital with pneumonia and was given IV fluids for resuscitation and developed heart failure. He also had episode of atrial tachycardia while he was in the hospital and required amiodarone short term. He was diuresed and improved. He had diabetic foot infection and underwent angiography by vascular surgery with angioplasty of anterior tibial artery and peroneal artery on the left side. He was on aspirin and Plavix but apparently had a lot of groin who is an bleeding and both medications were stopped and it appears he has not started them since then. He also had left eye retinal detachment and underwent surgical treatment for t hat. 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 10/21/23: He returns for follow-up. He underwent surgery for retinal detachment and also had cataract surgery. He still has ongoing visual issues and is seeing a retina specialist. He has no chest pains or shortness of breath. He has been fairly inactive due to right great toe amputation. He is following with vascular surgery closely. He is currently taking Plavix 75 mg daily. Blood pressure control is okay. 06/22/2024: He is here for follow-up. He had toe amputation and things improved after that. He also had angioplasty of no extremity by vascular surgery. He is taking Plavix monotherapy. No bleeding issues. Denying any leg pain. His is on hospice and he is under a lot of stress and was quite emotional and tearful. He said while he was with her in the hospital 1 day as he turn he just fell to the ground and he does not remember what happened. He is denying any dizziness or lightheadedness otherwise. No chest discomfort or shortness of breath. Echocardiography previously has shown moderate . [facility] Medical History PAD (peripheral artery disease) CKD (chronic kidney disease) stage 4, GFR 15-29 ml/min HTN (hypertension) Osteomyelitis Sepsis Diabetic neuropathy History of osteomyelitis Aortic stenosis Cellulitis of foot Heart murmur Kidney disease Diabetes Surgical History Hx of colonoscopy Hx of esophagogastroduodenoscopy History of hammer toe correction (~05/2021) Family History Father Heart attack CVD (cardiovascular disease) Mother Colon cancer Social History Household Members: Spouse Housing: House Do you presently have visiting nurse or other home services: No Unable to assess alcohol history related to: Unable to respond Alcohol intake: never Patient Tobacco Use Status: Never used Tobacco Advance Directives Date on File: 04/14/23 service: No Current occupational status: retired Review of Systems Const Denies chills, Denies fatigue, Denies fever(s), Denies frequent falls, Denies weakness, Denies weight gain and Denies weight loss ENT Denies dizziness Card Denies chest pain, Denies leg edema, Denies lightheadedness, Denies palpitations, Denies dyspnea and Denies dyspnea on exertion Resp Denies cough, Denies dyspnea and Denies dyspnea on exertion GI Denies hematochezia Musc Denies abnormal gait, Denies muscle weakness, Denies numbness, Denies radiating pain into limb and Denies tingling Neuro Denies abnormal gait, Denies dizziness, Denies frequent falls, Denies numbness, Denies tingling and Denies weakness Endo Denies fatigue and Denies palpitations Physical Exam Vital Signs: Last Vital Signs Pulse 60 06/22/24 13:52 BP 130/62 06/22/24 13:52 BMI result Body Mass Index 22.7 GENERAL APPEARANCE: in no acute distress, pleasant. NECK: no carotid bruit, no jugular venous distention. Normal carotid upstrokes. SKIN: no suspicious lesions, warm and dry. HEART: Ejection systolic murmur aortic area with feeble 2nd heart sound, regular rate and rhythm. LUNGS: Clear to auscultation. ABDOMEN: soft, nontender. EXTREMITIES: Mild edema. PERIPHERAL PULSES: equal. NEUROLOGIC: No gross deficits, AAO X 3 Office Procedures EKG Details: Sinus rhythm 60 beats per minute, normal axis, normal ECG, QTC 412 milliseconds. [id number], Complete Assessment & Plan Assessment & Plan (1) PAD (peripheral artery disease): Comment: 03/11/2023 - left anterior tibial and peroneal arteries plasty Code(s): I73.9 - Peripheral vascular disease, unspecified Category: Medical (2) Aortic stenosis: Code(s): I35.0 - Nonrheumatic aortic (valve) stenosis Category: Medical (3) Hypertension: Code(s): I10 - Essential (primary) hypertension Category: Medical Plan Pleasant 83 year gentleman with background history of atrial tachycardia, chronic kidney disease, episode of diastolic heart failure while he was admitted in the hospital with sepsis/pneumonia and moderate aortic valve stenosis. He had 1 episode of fall which is difficult to explain. He previously had moderate aortic valve stenosis on echocardiography more than a year ago. He has no chest pain or shortness of breath. He is currently walking with a walker because he has significant muscle loss in his thighs due to some myopathic process probably related to diabetes. He is undergoing physiotherapy for that. I discussed with him that he had aortic valve stenosis which was in the moderate range previously. With his recent episode where he fell to the ground without any clear indication we need further assessment and I am going to arrange echocardiography to reassess aortic valve. If in fact aortic valve as progress then we will start working him up for valve replacement. Blood pressure is well controlled currently. Mild peripheral edema but no symptoms/signs of heart failure currently. On Plavix monotherapy with previous angioplasty of lower extremity vessels. Thank you for allowing me to participate in the care of your patient. Please feel free to contact me if you have any questions. Orders: Orders CA echo transthoracic complete Today I35.0 - Nonrheumatic aortic (valve) stenosis Coding Level of Care Code Est Pt Level 4 (93450) Diagnoses PAD (peripheral artery disease) I73.9 Aortic stenosis I35.0 Hypertension I10 CPT Codes EKG - CPT: 02855-Proabashkykwaqgyd, Complete ([id number])
--- OUTSIDE RECORDS SUMMARY | 2024-06-22 15:36 | XMS_ITS ---
[facility] Organization [facility] Address [address] [place] [address] Care Team Providers Care Slitting And Shipping Supervisor Name Role Phone Hermes MILIAN, Jos Primary Care Provider Mic Thibodeaux Unavailable [phone] Allergies Allergen (clinical drug ingredient) Drug/Non Drug Allergy documented on EMR Reaction Allergy Type Onset Date Status Adhesive Tape rash, itching Drug Allergy Active Latex Latex Unknown Allergy Active omeprazole Omeprazole legs swelling, kidney issues Drug Allergy Active REASON FOR VISIT At Risk Footcare, Open sore Medications Medication SIG (Take, Route, Frequency, Duration) Notes Start Date End Date Status Iodosorb 0.9 % as directed External ly Apply to ulceration daily with dry sterile dressing for 30 days 10/01/2021 Not-Taking INVanz Not-Taking Losartan Potassium 100 MG 1 tablet Orally Once a day Not-Taking Flaxseed Oil 1000 MG Orally Not-Taking Aspirin 81 MG 1 tablet Orally Once a day Not-Taking Omeprazole 20 MG 1 capsule 30 minutes before morning meal Orally Once a day for 30 day(s) Not-Taking Fish Oil 1000 MG 1 capsule Orally Onc e a day Not-Taking Probiotic Not-Taking Calcium 600 MG 1 tablet with meals Orally Once a day Not-Taking Vitamin C 1000 MG 1 tablet Orally Once a day Not-Taking Doxycycline Monohydrate 100 MG 1 capsule Orally Once a day for 10 day(s) Not-Taking Extra Depth Orthopedic Shoes (1 Pair) with Customized Heat Molded Multidensity Innersoles (3 Pair) as directed Dx: NIDDM/Polyneuropathy (E11.42), Hammertoe Foot Deformity (M20.41,M20.42), Preulcerative Skin Lesion(s) (L85.1 11/20/2023 Active Pantoprazole Sodium 20 MG 1 tablet Orally Once a day Not-Taking Probiotic Not-Taking Cephalexin 500 MG 1 capsule Orally joan ry 8 hrs for 10 days Not-Taking NIFEdipine ER 90 MG 1 tablet on an empty stomach Orally Once a day Active Vitamin D3 1000 UNIT 1 capsule Orally On ce a day Active Vitamin B12 1000 MCG 1 tablet Orally Onc e a day Active Metoprolol Succinate 25 MG 1 capsule Orally Once a day for 30 day(s) Active Multi Vitamin Active Clopidogrel Bisulfate 75 MG 1 tablet Orally Once a day for 30 day(s) Active hydrALAZINE HCl 25 MG 1 tablet with food Orally Three times a day Active Social History Tobacco Use: Social History Observation Description Date Details (start date - stop date) Never Smoker NA - NA Tobacco Use/Smoking Question Answer Notes Are you a: nonsmoker Additional Findings: Tobacco Non-User Current no n-smoker Alcohol Screen Question Answer Notes Did you have a drink contain ing alcohol in the past year? Yes How often did you have a dri nk containing alcohol in the past year? 2 to 3 times a week (3 points) Points 3 Interpretation Negative Tobacco use other than smoking: Question Answer Notes Are you an other tobacco user? 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 pdf (WOUND CARE INSTRUCTIONS. pdf) 02/02/2024 Other Plan Of Treatment Treatment Notes Assessment Notes Neuropathic ulcer of left fo ot with fat layer exposed Patient Educated with: WOUND CARE INSTRUCTIONS.pdf (WOUND CARE INSTRUCTIONS.pdf) Pending Test Test Name Order Date 29838-EWLCOFH NAIL, 6 OR MORE 02/02/2024 49560-VQKDKRO SKIN/TISSUE 02/02/2024 60344-OWGZ SKIN LESIONS, 2 TO 4 02/02/20 24 Next Appt Details Follow Up: prn, Reason: Provider Name:Mic Mo , 07/22/2024 12:45:00 PM, [address] [place] [address], [phone], Procedure Notes * Category Sub-Category Detail Notes Debride Nail 6-10 Nail debridement Performance o f this nail treatment by a nonprofessional would put this patients foot and overall health at risk. Therefore, nail debridement was performed extensively to reduce/remove overall nail length, girth, thickness, subungual debris, and necrotic tissue, by manual and/or electrical means through the use of a nail nipper and/or dremel-type tankage grinder operator, to a more viable healthy nail plate or bed tissue 6-10. Silver nitrate used for any petechial bleeding as necessary. Definitive antifungal treatment options have been reviewed and discussed with the patient. The patient chooses, no pharmaceutical tx - [address]96 Debride skin and subQ Open wound Physician of record performed open wound selective debridement of devitalized necrotic/nonviable soft tissue, fibrin, exudate, epidermis, dermis, thru skin and subcutaneous fat tissue, first 20 sq cm or less, using sharp dissection with sterile 15 blade, and/or tissue nippers. ANESTHESIA- was not required due to presence of NEUROPATHY. Hemostasis was controlled through direct pressure. Sterile antibiotic dressing applied. Post debridement measurements: 25mm x 16mm x 3mm. Character of the wound post debridement is stable (19968) Keratoma Treatment Parring or Cutting o f Benign Hyperkeratotic Lesion(s) (-56) 2-4 Lesions - The Benign hyperkeratotic lesions, as described above were pared, and/or cut utilizing a sterile 15 blade, tissue nippers, and/or dremel - 37791 Progress Notes * Karthikeyan LAM ADOB: [birth year] (83 yo M)Acc No.[id number]:02/02/2024 Progress Note Patient:?Karthikeyan Lam A Provider:?Mic Mo DPM :1940???Age:83 Y???Sex:Male Lex e:02/02/2024 Address:[address] [place], [place] [id number] Pcp:Jos Mirza MD Subjective: * Chief Complaints: * ???At Risk FootcareOpen sore * HPI: ???At Risk footcare:?Pt States Last PCP Visit:?Date?01/12/2024 ???Skin problems:?Treatments:?Local care consisting of daily distilled water wound cleanse, topical antibiotic as recommended, application of sterile dressing, offloading/pressure reduction via rest, shoe modification, insert modification, accommodative padding, assisted ambulation via cane, and surgical debridement ?Regular follow up with Wound Care clinic with Silver Alginate to wounds.?Toe pain:?Treatments:?Rx shoes , states still needs - appt scheduled for Nov due to appliance back order issues.? * ROS:?General/Constitutional:?Nausea?denies.?Vomiting?denies.?Hunger Thirst?denies.?Loss appetite?denies.?Chills?denies.?Fatigue?denies.?Fever?denies.?Night Sweats?denies.?Unexplained weight loss?denies.?Unexplained weight gain?denies.?HEENTM:?Dentures?denies.?Dizziness?denies.?Glasses/contacts?admits.?Retinopathy?de nies.?Blurred/double vision?denies.?TMJ?denies.?Discharge/drainage?denies.?Implants?denies.?Sore throat?denies.?Dental implants?denies.?Hard of hearing ?denies.?Difficulty chewing/swallowing/speaking?denies.?Nose bleeds?denies.?Sore mouth?denies.?Respiratory:?On Oxygen?denies.?Pneumonia/pleurisy?denies.?Bronchitis?denies.?Emphysema?denies.?C oughing?denies.?Cough blood?denies.?Shortness of breath?denies.?Wheezing?denies.?Cardiovascular:?Pacemaker?denies.?MVP?denies.?WPW?denies.?CHF?denies.?Heart attack?denies.?Septal defect?denies.?Rapid beat?admits.?Chest pain ?denies.?Atrial Fib.?denies.?Murmur/Palpitations?denies.?Gastrointestinal:?Hemorrhoids?denies.?Stomach/Abdominal pain?denies.?Dark blood stool?denies.?Irritable bowel ?denies.?Constipation?denies.?Diarrhea?denies.?Hematology:?Swelling?admits.?Clots?denies.?Varicose Veins?denies.?Bruising?admits, on aspirin.?Bleeding problem?admits, on anticoagulants.?Genitourinary:?Blood urine?denies.?Frequent/Painfu/urination/bladder control?denies.?Kidney stones?denies.?Infection (UTI)?denies.?Nephropathy?admits.?sex trans dis (STD)?denies.?Prostate?denies.?Musculoskeletal:?Hammertoes?admits.?Bunions?denies.?Back Pain?denies.?Muscle Cramps/ Resting?denies.?Muscle cramps / walking?denies.?Generalized aches and pains?denies.?Weakness?denies.?Integ.:?M[place]ullough?denies.?Scars?denies.?Corns/calluses?admits.?Ingrown nails?admits.?Painful nails?denies.?Open Sores?denies.?Rashes?denies.?Neurologic:?Difficulty sleeping?denies.?Brain disorder?denies.?Numbness?admits.?Balance trouble?denies.?Confusion?denies.?Fainting/blackouts?denies.?Tingling?denies.?Tr emors?denies.? * Medical History:? 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/23 * Hospitalization/Major Diagno stic Procedure:?[facility] for toe infections 05/20/17[facility] for toe infection 01/15-01/21[facility] - infection toe 07/10/2018[facility]-Infection in toe antibiotics 42 days 12/04/2020 * Family History:?Mother: dece ased, diagnosed with Unspecified essential hypertension, Other malignant neoplasm of unspecified site.?Father: , diagnosed with Unspecified heart disease, Other malignant neoplasm of unspecified site.?Spouse: alive.?Maternal aunt: diagnosed with Diabetic - NIDDM.?Siblings: diagnosed with Unspecified essential hypertension, Other malignant neoplasm of unspecified site.? * Social History:?Tobacco Use:?Tobacco Use/Smoking?Are you a:?nonsmoker ?Additional Findings: Tobacco Non-User?Current non-smoker ?Tobacco use other than smoking?Are you an other tobacco user??No ???Drugs/Alcohol:?Drugs?Have you used drugs other than those for medical reasons in the past 12 months??No ?Alcohol Screen?Did you have a drink containing alcohol in the past year??Yes ?How often did you have a drink containing alcohol in the past year??2 to 3 times a week (3 points) ?Points?3 ?Interpretation?Negative ???Miscellaneous:?Caffeine: yes, frequency:, 1/2 cups per day. ?Children: yes. ?Exercise: yes, lifting, pedaling scifit, gardening, senior center. ?Marital status: . ?Occupation: Retired. * Medications:?TakinghydrALAZI NE HCl 25 MG Tablet 1 tablet with food Orally Three times a dayClopidogrel Bisulfate 75 MG Tablet 1 tablet Orally Once a dayMulti Vitamin Metoprolol Succinate 25 MG Capsule ER 24 Hour Sprinkle 1 capsule Orally Once a dayNIFEdipine ER 90 MG Tablet Extended Release 24 Hour 1 tablet on an empty stomach Orally Once a dayVitamin B12 1000 MCG Tablet Extended Release 1 tablet Orally Once a dayVitamin D3 1000 UNIT Capsule 1 capsule Orally Once a dayExtra Depth Orthopedic Shoes (1 Pair) with Customized Heat Molded Multidensity Innersoles (3 Pair) as directed Dx: NIDDM/Polyneuropathy (E11.42), Hammertoe Foot Deformity (M20.41,M20.42), Preulcerative Skin Lesion(s) (L85.1Taking hydrALAZINE HCl 25 MG Tablet 1 tablet with food Orally Three times a dayTaking Clopidogrel Bisulfate 75 MG Tablet 1 tablet Orally Once a dayTaking Multi Vitamin Taking Metoprolol Succinate 25 MG Capsule ER 24 Hour Sprinkle 1 capsule Orally Once a dayTaking NIFEdipine ER 90 MG Tablet Extended Release 24 Hour 1 tablet on an empty stomach Orally Once a dayTaking Vitamin B12 1000 MCG Tablet Extended Release 1 tablet Orally Once a dayTaking Vitamin D3 1000 UNIT Capsule 1 capsule Orally Once a dayTaking Extra Depth Orthopedic Shoes (1 Pair) with Customized Heat Molded Multidensity Innersoles (3 Pair) as directed Dx: NIDDM/Polyneuropathy (E11.42), Hammertoe Foot Deformity (M20.41,M20.42), Preulcerative Skin Lesion(s) (L85.1Not-Taking/PRNDoxycycline Monohydrate 100 MG Capsule 1 capsule Orally Once a dayProbiotic Pantoprazole Sodium 20 MG Tablet Delayed Release 1 tablet Orally Once a dayCephalexin 500 MG Capsule 1 capsule Orally every 8 hrsCalcium 600 MG Tablet 1 tablet with meals Orally Once a dayVitamin C 1000 MG Tablet 1 tablet Orally Once a dayFish Oil 1000 MG Capsule 1 capsule Orally Once a dayOmeprazole 20 MG Capsule Delayed Release 1 capsule 30 minutes before morning meal Orally Once a dayProbiotic Iodosorb 0.9 % Gel as directed Externally Apply to ulceration daily with dry sterile dressingLosartan Potassium 100 MG Tablet 1 tablet Orally Once a dayINVanz Aspirin 81 MG Tablet Chewable 1 tablet Orally Once a dayFlaxseed Oil 1000 MG Capsule Orally Medication List reviewed and reconciled with the patientNot-Taking/PRN Doxycycline Monohydrate 100 MG Capsule 1 capsule Orally Once a dayNot-Taking/PRN Probiotic Not-Taking/PRN Pantoprazole Sodium 20 MG Tablet Delayed Release 1 tablet Orally Once a dayNot-Taking/PRN Cephalexin 500 MG Capsule 1 capsule Orally every 8 hrsNot-Taking/PRN Calcium 600 MG Tablet 1 tablet with meals Orally Once a dayNot-Taking/PRN Vitamin C 1000 MG Tablet 1 tablet Orally Once a dayNot-Taking/PRN Fish Oil 1000 MG Capsule 1 capsule Orally Once a dayNot- Taking/PRN Omeprazole 20 MG Capsule Delayed Release 1 capsule 30 minutes before morning meal Orally Once a dayNot-Taking/PRN Probiotic Not-Taking/PRN Iodosorb 0.9 % Gel as directed Externally Apply to ulceration daily with dry sterile dressingNot- Taking/PRN Losartan Potassium 100 MG Tablet 1 tablet Orally Once a dayNot-Taking/PRN INVanz Not-Taking/PRN Aspirin 81 MG Tablet Chewable 1 tablet Orally Once a dayNot- Taking/PRN Flaxseed Oil 1000 MG Capsule Orally Medication List reviewed and reconciled with the patient * Allergies:?Adhesive Tape: ra sh, itchingLatexOmeprazole: legs swelling, kidney issuesyes[Allergies Verified] Objective: * Vitals:?Ht: 6 ft 3 in, Wt:19 5, BMI:24.37, Shoe size:13, BP:120/70 mm Hg, BS:117. * Examination: ???Neurological: ?SENSORY:?Neurological exam demonstrates, reduced light touch sensation, reduced sharp/dull discrimination , reduced vibration sensation, reduced proprioception sensation, B/L, 5.07 monofilament test performed at plantar aspects of 5 varied sites per foot shows sensation, reduced, B/L.?Nails: ?NAILS are:?Elongated, overgrown, dystrophic, lytic, greater than 3mm thick, discolored and friable with crumbly malodorous subungual debris, , 1-5 Left foot , T6 , T7 , T8 , T9.?Dermatologic: ?SKIN FINDINGS:?Skin exam reveals Keratotic lesion(s) located at , SUB MTH (s), 1, B/L,?Heel(s), B/L.?ULCER:?LOCATION, Plantar, 3 MTH, LEFT, SIZE, STILL 10mm X 10mm X 3mm, BASE, fibro-granular, RIM, hyperkeratotic, UNDERMINING, moderate today, TRACKING, Sub Q with Fat layer exposed, DRAINAGE, serosanguineous, moderate, NECROTIC TISSUE, loosely-adherent, yellow slough, MALODOR, absent, CALOR, absent, ERYTHEMA, absent ?LOCATION, Distal, Plantar, TA, SIZE, 25mm X 15mm X 3mm, BASE, fibro- granular, RIM, hyperkeratotic, UNDERMINING, mild, TRACKING, Sub Q with Fat layer exposed, DRAINAGE, serosanguineous, moderate, NECROTIC TISSUE, loosely-adherent, yellow slough, MALODOR, absent, CALOR, absent, ERYTHEMA, absent.? 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 Plan: * Treatment: 2.?Neuropathic ulcer of left foot with fat layer exposed?Procedure: 67916-[id number] SKIN/TISSUE Notes: Patient Educated with: WOUND CARE INSTRUCTIONS.pdf (WOUND CARE INSTRUCTIONS.pdf)?? * Procedures:?Debride Nail 6-10:?Nail debridement?Performance of this nail treatment by a nonprofessional would put this patients foot and overall health at risk. Therefore, nail debridement was performed extensively to reduce/remove overall nail length, girth, thickness, subungual debris, and necrotic tissue, by manual and/or electrical means through the use of a nail nipper and/or dremel-type tankage grinder operator, to a more viable healthy nail plate or bed tissue 6-10. Silver nitrate used for any petechial bleeding as necessary. Definitive antifungal treatment options have been reviewed and discussed with the patient. The patient chooses, no pharmaceutical tx - 52499.?Debride skin and subQ:?Open wound?Physician of record performed open wound selective debridement of devitalized necrotic/nonviable soft tissue, fibrin, exudate, epidermis, dermis, thru skin and subcutaneous fat tissue, first 20 sq cm or less, using sharp dissection with sterile 15 blade, and/or tissue nippers. ANESTHESIA- was not required due to presence of NEUROPATHY. Hemostasis was controlled through direct pressure. Sterile antibiotic dressing applied. Post debridement measurements: 25mm x 16mm x 3mm. Character of the wound post debridement is stable (17273).?Keratoma Treatment:?Parring or Cutting of Benign Hyperkeratotic Lesion(s)?(-56) 2-4 Lesions - The Benign hyperkeratotic lesions, as described above were pared, and/or cut utilizing a sterile 15 blade, tissue nippers, and/or dremel - 41822.? * Procedure Codes:?28140 DEBRI DE SKIN/TISSUE, Modifiers: XS 91108 DEBRIDE NAIL, 6 OR MORE, Modifiers: XS 85046 TRIM SKIN LESIONS, 2 TO 4, Modifiers: XS * Preventive Medicine:? ??Counseling:?Shoe Gear Counseling:?Patient to obtain shoes hopefully soon.?Ulcer:?The patient is to apply ( Silver or Zinc) Antibiotic to the wound and cover with a DSD as directed BY THE WOUND CENTER. The patient was instructed to change dressings according to orders, or PRN saturation, leaks. The patient was instructed to monitor and report any signs or symptoms of infection or any untoward reactions. Precautions Taken: Offloading/Pressure reduction via rest/ limited activity to essential to daily life only, cane, shoe modification, accommodative padding, sharp debridement, and take/apply medication as directed, Debridement frequency as indicated, cont Wound care referral.? * Follow Up:?prn * Images: * Sign off status: Completed true * Provider:?Mic Mo DPM Date:?2023 Generated for Nighat neely/Duncan/Melo on:?06/22/2024 03:36 PM EST History and Physical Notes * HPI (History of Present Illness) Category Sub-Category Detail Notes Category Not es Toe pain Treatments: Rx shoes , state s still needs - appt scheduled for Nov due to appliance back order issues Skin problems Treatments: Local care consi sting of daily distilled water wound cleanse, topical antibiotic as recommended, application of sterile dressing, offloading/pressure reduction via rest, shoe modification, insert modification, accommodative padding, assisted ambulation via cane, and surgical debridement Regular follow up with Wound Care clinic with Silver [facility]ginate to wounds At Risk footcare Pt States Last PCP Visit: Date: 01/12/2024 Examination Category Sub-Category Detail Notes Category Not es Neurological SENSORY: Neurological exa m demonstrates, reduced light touch sensation, reduced sharp/dull discrimination , reduced vibration sensation, reduced proprioception sensation, B/L, 5.07 monofilament test performed at plantar aspects of 5 varied sites per foot shows sensation, reduced, B/L Dermatologic SKIN FINDINGS: Skin exam reveal s Keratotic lesion(s) located at , SUB MTH (s), 1, B/L, Heel(s), B/L ULCER: LOCATION, Plantar, 3 MTH, LEFT, SIZE, STILL 10mm X 10mm X 3mm, BASE, fibro-granular, RIM, hyperkeratotic, UNDERMINING, moderate today, TRACKING, Sub Q with Fat layer exposed, DRAINAGE, serosanguineous, moderate, NECROTIC TISSUE, loosely-adherent, yellow slough, MALODOR, absent, CALOR, absent, ERYTHEMA, absent LOCATION, Distal, Plantar, TA, SIZE, 25mm X 15mm X 3mm, BASE, fibro-granular, RIM, hyperkeratotic, UNDERMINING, mild, TRACKING, Sub Q with Fat layer exposed, DRAINAGE, serosanguineous, moderate, NECROTIC TISSUE, loosely-adherent, yellow slough, MALODOR, absent, CALOR, absent, ERYTHEMA, absent Nails NAILS are: Elongated, overg rown, dystrophic, lytic, greater than 3mm thick, discolored and friable with crumbly malodorous subungual debris, , 1-5 Left foot , T6 , T7 , T8 , T9
--- OUTSIDE RECORDS SUMMARY | 2024-06-22 15:36 | XMS_ITS ---
Author Organization [facility] Address [address] [place] [id number] Care Team Providers Care Feed Crusher Name Role Phone Jos Mirza Primary Care Provider Too Torres Jr REASON FOR VISIT Patient presents today for regurtation Encounters Encounter Location Date Provider Diagnosis [facility] [address] [place] [address] 04/27/2023 Too Casey Jr PLAN OF TREATMENT No Information
--- OUTSIDE RECORDS SUMMARY | 2024-06-22 15:37 | XMS_ITS | Clinical Summary ---
Author Organization [address] [facility] Address [address] [place] [address] Phone Care Team Providers Care Impregnator And Drier Helper Name Role Phone Jos Mirza DO Primary Care Provider [phone] Allergies Active Allergy Reactions Criticality Noted Date Comments Adhesive 12/14/2020 Medications Medication Sig Dispensed Refills Start Date End Date Status mupirocin (BACTROBAN) 2 % ointment Apply topically to wound dialy 12/07/2023 Active silver sulfate/foam bandage (MEPILEX AG TOP) Apply 1 Applicator topically daily. Apply daily to feet wounds 09/15/2023 Active oxyCODONE (ROXICODONE) 5 mg immediate release tablet Take one tablet every 4 hours as needed for pain 07/16/2023 Active cyanocobalamin (VITAMIN B-12) 1,000 mcg tablet Vitamin B-12 1,000 mcg tablet Take 1 tablet every day by oral route. Active cholecalciferol (VITAMIN D-3) 25 mcg (1,000 unit) tablet Vitamin D3 25 mcg (1,000 unit) tablet Take 1 tablet every day by oral route. Active LACTOBACILLUS ACIDOPHILUS ORAL Take by mouth. Acti ve NIFEdipine CC (ADALAT CC) 90 mg 24 hr tablet Take 90 mg by mouth daily. Active CALCIUM CARBONATE ORAL Take by mouth. Active omega-3 acid ethyl esters (LOVAZA) 1 gram capsule Take by mouth. Active vitamin B complex (B COMPLEX-VITAMIN B12 ORAL) Take by mouth. Active ascorbate calcium, vitamin C, 500 mg tablet Take by mouth. Active Encounters Date Type Department Care Team Description 06/06/2024 8:45 AM EST Office Visit Orthopedic Surgery [facility] [address] [facility] [address] [place] [address] Shay Brito, DPM Chronic osteomyelitis of hindfoot, left (CMS/HCC) (Primary Dx); Follow-up exam; Ulcer of toe of left foot, with fat layer exposed (CMS/HCC) 05/09/2024 9:15 AM EST Office Visit Orthopedic Surgery [place] [address] [phone] Shay Brito DPM Chronic osteomyelitis of hindfoot, left (CMS/HCC) (Primary Dx); Foot pain, left; Ulcer of toe of left foot, with fat layer exposed (CMS/HCC); Ulcer of toe of left foot, with necrosis of bone (CMS/HCC) 04/25/2024 8:00 AM EST Office Visit Orthopedic Surgery [place] [address] [phone] Shay Brito DPM Chronic osteomyelitis of hindfoot, left (CMS/HCC) (Primary Dx); Left foot pain; Ulcer of toe of left foot, with necrosis of bone (CMS/HCC); Ulcer of toe of left foot, with fat layer exposed (CMS/HCC) 04/13/2024 9:15 AM EST Office Visit Orthopedic [place] [address] [phone] Shay Brito DPM Chronic osteomyelitis of hindfoot, left (CMS/HCC) (Primary Dx); Follow-up exam; Ulcer of toe of left foot, with necrosis of bone (CMS/HCC); Ulcer of toe of left foot, with fat layer exposed (CMS/HCC) 04/06/2024 9:30 AM EST Office Visit Orthopedic Surgery [place] [address] [phone] Shay Brito DPM Chronic osteomyelitis of hindfoot, left (CMS/HCC) (Primary Dx); Left foot pain; Ulcer of toe of left foot, with necrosis of bone (CMS/HCC); Ulcer of toe of left foot, with fat layer exposed (CMS/HCC) 03/30/2024 9:15 AM EST Office Visit Orthopedic [place] [address] [phone] Shay Brito DPM Chronic osteomyelitis of hindfoot, left (CMS/HCC) (Primary Dx); Ulcer of toe of left foot, with necrosis of bone (CMS/HCC) from Last 3 Months Medical History Medical History Date Comments Type 2 diabetes mellitus (CMS/HCC) DX:Type 2 diabetes mellitus (HCC) Hypertension DX:Hypertension Chronic ulcer of great toe o f right foot (CMS/HCC) DX:Chronic ulcer of great to e of right foot (HCC) Social History Tobacco Use Types Packs/Day Years Used Date Smoking Tobacco: Never Smokeless Tobacco: Never Tobacco Cessation:Counseling Given: Not Answered Alcohol Use Standard Drinks/Week Comments Never 0 (1 standard drink = 0.6 oz pur e alcohol) Sex and Gender Information Value Date Recorded Sex Assigned at Not on file Gender Identity Not on file Sexual Orientation Not on file Job Start Date Occupation Industry Not on file Not on file Not on file Obstetrics History Last Filed Vital Signs Vital Sign Reading Time Taken Comments Blood Pressure - - Pulse - - Temperature - - Respiratory Rate - - Oxygen Saturation - - Inhaled Oxygen Concentration - - Weight 87.1 kg (192 lb) 06/06/2024 9:00 AM EST Height 190.5 cm (6' 3 ) 06/06/2024 9:00 AM EST Body Mass Index 24 06/06/2024 9:00 AM EST Plan of Treatment Upcoming Encounters Date Type Department Care Team (Late st Contact Info) Description 06/29/2024 8:45 AM EST Office Visit Orthopedic Surgery - [place] [address] [phone] Shay Brito DPM [address] [address] Health Maintenance Due Date Last Done Comments Diabetes: Annual Foot Exam 1950 Diabetes: Annual Retina Eye Exam 1950 Cholesterol Screening (Lipid Panel) 04/23/2022 Depression Screening 04/23/2022 Falls Risk Assessment 04/23/2022 Medicare Annual Wellness Visit 04/23/2022 Social Influencers of Health Screening 04/23/2022 Diabetes: Annual Urine Albumin-Creatinine Ratio (uACR) 03/30/2024 Diabetes: Blood Sugar Control Test (HGBA1C) 03/30/2024 Diabetes: Annual GFR (Glomerular Filtration Rate) 03/08/2025 03/08/2024 Hypertension/CHF/CAD Annual BMP Blood Test 03/08/2025 03/08/2024 DTaP,Tdap,and Td Vaccines (3 - Td or Tdap) 09/26/2026 09/26/2016, 09/26/2016 Pneumococcal Vaccine: 65+ Years Completed 12/14/2017, 09/26/2016, 02/27/2015 Zoster Vaccines Completed 08/13/2020, 09/2020, 10/24/2011 COVID-19 Vaccine Completed 04/07/2024, , 07/21/2020, Additional history exists Influenza Vaccine Completed 04/07/2024, , 02/21/2022, Additional history exists RSV Immunization Patients 60+ Years Old Completed 04/07/2024 HIB Vaccines Aged Out No longer eligi ble based on patient's age to complete this topic HPV Vaccines Aged Out No longer eligi ble based on patient's age to complete this topic Hepatitis A Vaccines Aged Out No long er eligible based on patient's age to complete this topic Hepatitis B Vaccines Aged Out No long er eligible based on patient's age to complete this topic IPV Vaccines Aged Out No longer eligi ble based on patient's age to complete this topic MMR Vaccines Aged Out No longer eligi ble based on patient's age to complete this topic Meningococcal ACWY Vaccine Aged Out N o longer eligible based on patient's age to complete this topic RSV Immunization Patients Under 20 months Aged Out No longer eligible based on patient's age to complete this topic Varicella Vaccines Aged Out No longer eligible based on patient's age to complete this topic Procedures Procedure Name Priority Date/Time Associated Diagnosis Comments XR FOOT 3+ VIEWS LEFT Routine 06/06/2024 9:03 AM EST Follow-up exam XR FOOT 3+ VIEWS LEFT Routine 05/09/2024 9:16 AM EST Foot pain, left XR FOOT 3+ VIEWS LEFT Routine 04/25/2024 12:57 PM EST Left foot pain XR FOOT 3+ VIEWS LEFT Routine 04/25/2024 8:17 AM EST Left foot pain XR FOOT 3+ VIEWS LEFT Routine 04/13/2024 9:39 AM EST Follow-up exam XR FOOT 3+ VIEWS LEFT Routine 03/30/2024 9:24 AM EST Pain ORTHO X-RAY FOOT (3 VIEWS) Routine 03/23/2024 1:27 PM EDT Pain in left foot from Last 3 Months Results * XR Foot 3+ Views Left (06/06/2024 9:03 AM EST) Only the most recent of6 resultswithin the time period is included. Anatomical Region Laterality Modality Lower Extremities, Foot Left Computed Radiography Narrative 06/13/2024 12:37 PM EST Left foot 3 views Stabilizing changing's from chronic osteomyelitis of the second metatarsal resolved subcutaneous gas resolved stabilize changes no new acute erosions Shay Brito DPM IMG XR PROCEDURES * ORTHO X-RAY FOOT (3 VIEWS) (03/23/2024 1:27 PM EDT) Anatomical Region Laterality Modality Radiographic Suzanna ging 03/23/2024 7:29 AM EDT Narrative 03/23/2024 6:12 PM EDT Left foot 3 views Worsening septic joint of the second metatarsophalangeal joint with radiolucencies consistent with either soft tissue emphysema or degloving of the second metatarsal phalangeal joint clinical correlation recommended Procedure Note Shay Brito DPM - 03/26/2024 Left foot 3 views Worsening septic joint of the second metatarsophalangeal joint withradiolucencies consistent with either soft tissue emphysema or deglovingof the second metatarsal phalangeal joint clinical correlationrecommended Shay Brito DPM IMG XR PROCEDURES from Last 3 Months Care Teams Impregnator And Drier Helper Relationship Specialty Start Date End Date Jos Mirza DO [address] [facility] [address] [place], [place] PCP - General Internal Medicine 12/14/20
--- OUTSIDE RECORDS SUMMARY | 2024-06-22 15:37 | XMS_ITS ---
Author Organization [facility] Address [address] [place] [address] Care Team Providers Care Cath Lab Radiological Technologist Name Role Phone Hermes MILIAN, Jos Primary Care Provider Mic Thibodeaux Unavailable [phone] Allergies Allergen (clinical drug ingredient) Drug/Non Drug Allergy documented on EMR Reaction Allergy Type Onset Date Status Adhesive Tape rash, itching Drug Allergy Active Latex Latex Unknown Allergy Active omeprazole Omeprazole legs swelling, kidney issues Drug Allergy Active REASON FOR VISIT At Risk Footcare, Open sore(s), Toe Irritation Medications Medication SIG (Take, Route, Frequency, Duration) Notes Start Date End Date Status Vitamin D3 1000 UNIT 1 capsule Orally On ce a day Active Extra Depth Orthopedic Shoes (1 Pair) with Customized Heat Molded Multidensity Innersoles (3 Pair) as directed Dx: NIDDM/Polyneuropathy (E11.42), Hammertoe Foot Deformity (M20.41,M20.42), Preulcerative Skin Lesion(s) (L85.1 11/20/2023 Active Doxycycline Monohydrate 100 MG 1 capsule Orally Once a day for 10 day(s) Not-Taking Probiotic Not-Taking Pantoprazole Sodium 20 MG 1 tablet Orally Once a day Not-Taking NIFEdipine ER 90 MG 1 tablet on an empty stomach Orally Once a day Active Vitamin B12 1000 MCG 1 tablet Orally Onc e a day Active Clopidogrel Bisulfate 75 MG 1 tablet Orally Once a day for 30 day(s) Active Multi Vitamin Active Metoprolol Succinate 25 MG 1 capsule Orally Once a day for 30 day(s) Active Losartan Potassium 100 MG 1 tablet Orally Once a day Not-Taking INVanz Not-Taking Aspirin 81 MG 1 tablet Orally Once a day Not-Taking Flaxseed Oil 1000 MG Orally Not-Taking hydrALAZINE HCl 25 MG 1 tablet with food Orally Three times a day Active Omeprazole 20 MG 1 capsule 30 minutes before morning meal Orally Once a day for 30 day(s) Not-Taking Probiotic Not-Taking Iodosorb 0.9 % as directed External ly Apply to ulceration daily with dry sterile dressing for 30 days 10/01/2021 Not-Taking Vitamin C 1000 MG 1 tablet Orally Once a day Not-Taking Fish Oil 1000 MG 1 capsule Orally Onc e a day Not-Taking Cephalexin 500 MG 1 capsule Orally joan ry 8 hrs for 10 days Not-Taking Calcium 600 MG 1 tablet with meals Orally Once a day Not-Taking Social History Tobacco Use: Social History Observation [...] Are you an other tobacco user? No Problems Problem Type SNOMED Code ICD Code Onset Dates Problem Status W/U Status Risk Notes Problem Ulcer of toe of left foot (disorder) (6522234002 [id number]) Skin ulcer of toe of left foot, limited to breakdown of skin (L97.521) Active confirmed Response to treatment improving Vital Signs Height 6 ft 3 in in 04/19/2024 Weight 195 lbs 04/19/2024 BMI 24.37 kg/m2 04/19/2024 Blood pressure systolic 120 mm Hg 04/19/20 24 Blood pressure diastolic 70 mm Hg 024 Procedures Procedure Date Ordered Date Performed Result Body Sit e 48804-WEYUJYG NAIL, 6 OR MORE 04/19/2024 N/A 04720- Debride <25 sq cm 04/19/2024 N/A 09040-WNKXHLT SKIN/TISSUE 04/19/2024 N/A 74384-WUVB SKIN LESIONS, 2 TO 4 04/19/2024 N/A Encounters Encounter Location Date Provider Diagnosis [facility] [place] [address] [place] [address] 04/19/2024 Mic Mo Type 2 diabetes mellitus with diabetic polyneuropathy E11.42 ; Tinea unguium B35.1 ; 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 pdf (WOUND CARE INSTRUCTIONS. pdf) 04/19/2024 Other hammer toe(s) (acquired), right foot (ICD-10 - M20.41) Response to treatment,Impro vement 04/19/2024 Other hammer toe(s) (acquired), left foot (ICD-10 - M20.42) Response to treatment,Impro vement 04/19/2024 Skin ulcer of toe of left foot, limited to breakdown of skin (ICD-10 - L97.521) Response to treatment improving Patient Educated with: WOUND CARE INSTRUCTIONS. pdf (WOUND CARE INSTRUCTIONS. pdf) 04/19/2024 Other Plan Of Treatment Treatment Notes Assessment Notes Neuropathic ulcer of left fo ot with fat layer exposed Patient Educated with: WOUND CARE INSTRUCTIONS.pdf (WOUND CARE INSTRUCTIONS.pdf) Skin ulcer of toe of left fo ot, limited to breakdown of skin Patient Educated with: WOUND CARE INSTRUCTIONS.pdf (WOUND CARE INSTRUCTIONS.pdf) Pending Test Test Name Order Date 86221-[id number] NAIL, 6 OR MORE 04/19/2024 35448- Debride <25 sq cm 04/19/2024 85889-UGKIOXX SKIN/TISSUE 04/19/2024 95940-NNOA SKIN LESIONS, 2 TO 4 04/19/20 24 Next Appt Details Follow Up: prn, Reason: Provider Name:Mic Mo , 07/22/2024 12:45:00 PM, [address] [place], [address], Procedure Notes * Category Sub-Category Detail Notes Debride Nail 6-10 Nail debridement Performance o f this nail treatment by a nonprofessional would put this patients foot and overall health at risk. Therefore, debridement to affected nail(s), as described in exam, was performed extensively to reduce/remove overall nail length, girth, thickness, subungual debris, and necrotic tissue, by manual and/or electrical means through the use of a nail nipper and/or dremel-type head wood grinder, to a more viable healthy nail plate or bed tissue 6-10 nails in total. Silver nitrate was used for any petechial bleeding as necessary. Definitive antifungal treatment options, both pharmaceutical and surgical, have been reviewed and discussed with the patient. The patient solely prefers the use of intermittent/as needed professional debridement services for their nail condition and understands the need for additional periodic treatments to maintain effectiveness in symptomatic relief - 14327 Debride skin< 25 sq cm Open wound NEUROPATH Y: Physician of record performed open wound selective debridement of first 25 sq cm or less, of devitilized necrotic/nonviable soft tissue, fibrin, and exudate extending from the epidermis through the dermis, utilizing sharp dissection with sterile 15 blade, and/or tissue nippers. Hemostasis was controlled through direct pressure. Sterile antibiotic dressing applied, ANESTHESIA was not required due to presence of NEUROPATHY. Post debridement measurements: 10mm x 10mm x 2mm. Character of the wound post debridement is stable (38711) Debride skin and subQ Open wound Physician [...] Sterile antibiotic dressing applied. Post debridement measurements: 12mm x 10mm x 3mm. Character of the wound post debridement is stable (83393) Keratoma Treatment Parring or Cutting o f Benign Hyperkeratotic Lesion(s) (-56) 2-4 Lesions - The Benign hyperkeratotic lesions, ( 4) in total, locations as stated and described in exam, were pared, and/or cut utilizing a sterile 15 blade, tissue nippers, and/or power [employer] instrumentation - 91730 Progress Notes * Karthikeyan LAM ADOB: [birth year] (83 yo M)Acc No.[id number]:04/19/2024 Progress Note Patient:?Karthikeyan LAM A Provider:?Mic Mo DPM :1940???Age:83 Y???Sex:Male Lex e:04/19/2024 Address:[address] [place], [place] [id number] Pcp:Jos Mirza MD Subjective: * Chief Complaints: * ???At Risk FootcareOpen sore (s)Toe Irritation * HPI: ???At Risk footcare:?Pt States Last PCP Visit:?Date?01/12/2024 ?Misc?States , Dennis, is not doing well with her brain CA.?Skin problems:?Treatments:?Local care consisting of daily distilled water wound cleanse, topical antibiotic as recommended, application of sterile dressing, offloading/pressure reduction via rest, shoe modification, insert modification, accommodative padding, assisted ambulation via cane, walker, and surgical debridement. Regular follow up with [facility] with Silver Alginate to wounds.?Toe pain:?Treatments:?Rx shoes.? * ROS:?General/Constitutional:?Nausea?denies.?Vomiting?denies.?Hunger Thirst?denies.?Loss appetite?denies.?Chills?denies.?Fatigue?denies.?Fever?denies.?Night Sweats?denies.?Unexplained weight loss?denies.?Unexplained [...] * Surgical History:?R eye surg latoya Carmona [facility] 2nd hammer toe 05/31/2021endoscopy 03/15,05/15Right 2nd toe for osteo 07/17/23torn retna cataract surgery amputation, right great toe - 08/18/23 * Hospitalization/Major Diagno stic Procedure:?[facility] for toe [facility] 01/15-01/21[facility] - infection toe 07/10/2018[facility]-Infection in toe antibiotics 42 days 12/04/2020 * Family History:?Mother: dece ased, diagnosed with Other malignant neoplasm of unspecified site, Unspecified essential hypertension.?Father: , diagnosed with Other malignant neoplasm of unspecified site, Unspecified heart disease.?Spouse: alive.?Maternal aunt: diagnosed with Diabetic - NIDDM.?Siblings: diagnosed with Other malignant neoplasm of unspecified site, Unspecified essential hypertension.? * Social History:?Tobacco Use:?Tobacco Use/Smoking?Are you a:?nonsmoker [...] with food Orally Three times a day Clopidogrel Bisulfate 75 MG Tablet 1 tablet Orally Once a day Multi Vitamin Metoprolol Succinate 25 MG Capsule ER 24 Hour Sprinkle 1 capsule Orally Once a day NIFEdipine ER 90 MG Tablet Extended Release 24 Hour 1 tablet on an empty stomach Orally Once a day Vitamin B12 1000 MCG Tablet Extended Release 1 tablet Orally Once a day Vitamin D3 1000 UNIT Capsule 1 capsule Orally Once a day Extra Depth Orthopedic Shoes (1 Pair) with Customized Heat Molded Multidensity Innersoles (3 Pair) as directed Dx: NIDDM/Polyneuropathy (E11.42), Hammertoe Foot Deformity (M20.41,M20.42), Preulcerative Skin Lesion(s) (L85.1 Taking hydrALAZINE HCl 25 MG Tablet 1 tablet with food Orally Three times a day Taking Clopidogrel Bisulfate 75 MG Tablet 1 tablet Orally Once a day Taking Multi Vitamin Taking Metoprolol Succinate 25 MG Capsule ER 24 Hour Sprinkle 1 capsule Orally Once a day Taking NIFEdipine ER 90 MG Tablet Extended Release 24 Hour 1 tablet on an empty stomach Orally Once a day Taking Vitamin B12 1000 MCG Tablet Extended Release 1 tablet Orally Once a day Taking Vitamin D3 1000 UNIT Capsule 1 capsule Orally Once a day Taking Extra Depth Orthopedic Shoes (1 Pair) with Customized Heat Molded Multidensity Innersoles (3 Pair) as directed Dx: NIDDM/Polyneuropathy (E11.42), Hammertoe Foot Deformity (M20.41,M20.42), Preulcerative Skin Lesion(s) (L85.1 Not-Taking/PRNDoxycycline Monohydrate 100 MG Capsule 1 capsule Orally Once a day Probiotic Pantoprazole Sodium 20 MG Tablet Delayed Release 1 tablet Orally Once a day Cephalexin 500 MG Capsule 1 capsule Orally every 8 hrs Calcium 600 MG Tablet 1 tablet with meals Orally Once a day Vitamin C 1000 MG Tablet 1 tablet Orally Once a day Fish Oil 1000 MG Capsule 1 capsule Orally Once a day Omeprazole 20 MG Capsule Delayed Release 1 capsule 30 minutes before morning meal Orally Once a day Probiotic Iodosorb 0.9 % Gel as directed Externally Apply to ulceration daily with dry sterile dressing Losartan Potassium 100 MG Tablet 1 tablet Orally Once a day INVanz Aspirin 81 MG Tablet Chewable 1 tablet Orally Once a day Flaxseed Oil 1000 MG Capsule Orally Medication List reviewed and reconciled with the patientNot-Taking/PRN Doxycycline Monohydrate 100 MG Capsule 1 capsule Orally Once a day Not-Taking/PRN Probiotic Not- Taking/PRN Pantoprazole Sodium 20 MG Tablet Delayed Release 1 tablet Orally Once a day Not-Taking/PRN Cephalexin 500 MG Capsule 1 capsule Orally every 8 hrs Not- Taking/PRN Calcium 600 MG Tablet 1 tablet with meals Orally Once a day Not-Taking/PRN Vitamin C 1000 MG Tablet 1 tablet Orally Once a day Not-Taking/PRN Fish Oil 1000 MG Capsule 1 capsule Orally Once a day Not-Taking/PRN Omeprazole 20 MG Capsule Delayed Release 1 capsule 30 minutes before morning meal Orally Once a day Not-Taking/PRN Probiotic Not-Taking/PRN Iodosorb 0.9 % Gel as directed Externally Apply to ulceration daily with dry sterile dressing Not-Taking/PRN Losartan Potassium 100 MG Tablet 1 tablet Orally Once a day Not-Taking/PRN INVanz Not-Taking/PRN Aspirin 81 MG Tablet Chewable 1 tablet Orally Once a day Not-Taking/PRN Flaxseed Oil 1000 MG Capsule Orally Medication List reviewed and reconciled with the patient * Allergies:?Adhesive Tape: ra sh, itchingLatexOmeprazole: legs swelling, kidney issuesyes[Allergies Verified] Objective: * Vitals:?Ht: 6 ft 3 in, Wt:19 5, BMI: 24.37, Shoe size:13, BP:120/70mm Hg, BS:117, Wt-k.45 kg. * ???Past Orders: ???Lab:HEMOGLOBIN A1C (GLYCO HEMOGLOBIN) (Order Date - 06/25/2023) (Collection Date & Time - 06/25/2023 02:43 PM) ? Value Reference Range ?HEMOGLOBIN A1C % (HH) 6.1 * Examination: ???Neurological: ?SENSORY:?Neurological exam demonstrates, reduced [...] at , SUB MTH (s), 1, B/L, Plantar, Heel(s), B/L.?ULCER:?LOCATION, Plantar, 3 MTH, LEFT, SIZE, NOW 9mm X 6mm X 3mm, BASE, fibro-granular, RIM, hyperkeratotic, UNDERMINING, moderate today, TRACKING, Sub Q with Fat layer exposed, DRAINAGE, serosanguineous, moderate, NECROTIC TISSUE, loosely-adherent, yellow slough, MALODOR, absent, CALOR, absent, ERYTHEMA, absent LOCATION, Distal, Plantar, TA, SIZE, NOW 8mm X 8mm X 2mm, BASE, fibro-granular, RIM, hyperkeratotic, UNDERMINING, mild, TRACKING, Full thickness breakdown of skin, DRAINAGE, serosanguineous, moderate, NECROTIC TISSUE, loosely-adherent, yellow slough, MALODOR, absent, CALOR, absent, ERYTHEMA, absent.?Orthopedic: ?DIGITAL DEFORMITIES:?Amputation T5, Digital contracture, IPJ/PIPJ, TA, T1, T9, incompl-reducible to push-up test, no over, nor underlapping , no longer, with evidence of shoe producing skin irritation.?FOOTWEAR:?good condition, exhibit proper fit and accommodation for pedal deformities. OT were inspected and noted to be worn, but in good condition giving proper support at the present time.? 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 Plan: * Treatment: 2.?Neuropathic ulcer of left foot with fat layer exposed?Procedure: 86198-[id number] SKIN/TISSUE Notes: Patient Educated with: WOUND CARE INSTRUCTIONS.pdf (WOUND CARE INSTRUCTIONS.pdf)?? 3.?Skin ulcer of toe of left foot, limited to breakdown of skin?Procedure: 49174- Debride <25 sq cm Notes: Patient Educated with: WOUND CARE INSTRUCTIONS.pdf (WOUND CARE INSTRUCTIONS.pdf)?? * Procedures:?Debride Nail 6-10:?Nail debridement?Performance of this nail treatment by a nonprofessional would put this patients foot and overall health at risk. Therefore, debridement to affected nail(s), as described in exam, was performed extensively to reduce/remove overall nail length, girth, thickness, subungual debris, and necrotic tissue, by manual and/or electrical means through the use of a nail nipper and/or dremel-type head wood grinder, to a more viable healthy nail plate or bed tissue 6-10 nails in total. Silver nitrate was used for any petechial bleeding as necessary. Definitive antifungal treatment options, both pharmaceutical and surgical, have been reviewed and discussed with the patient. The patient solely prefers the use of intermittent/as needed professional debridement services for their nail condition and understands the need for additional periodic treatments to maintain effectiveness in symptomatic relief - 14631.?Debride skin and subQ:?Open wound?Physician of record performed [...] Sterile antibiotic dressing applied. Post debridement measurements: 12mm x 10mm x 3mm. Character of the wound post debridement is stable (40015).?Debride skin< 25 sq cm:?Open wound?NEUROPATHY: Physician of record performed open wound selective debridement of first 25 sq cm or less, of devitilized necrotic/nonviable soft tissue, fibrin, and exudate extending from the epidermis through the dermis, utilizing sharp dissection with sterile 15 blade, and/or tissue nippers. Hemostasis was controlled through direct pressure. Sterile antibiotic dressing applied, ANESTHESIA was not required due to presence of NEUROPATHY. Post debridement measurements: 10mm x 10mm x 2mm. Character of the wound post debridement is stable (27557).?Keratoma Treatment:?Parring or Cutting of Benign Hyperkeratotic Lesion(s)?(-56) 2-4 Lesions - The Benign hyperkeratotic lesions, ( 4) in total, locations as stated and described in exam, were pared, and/or cut utilizing a sterile 15 blade, tissue nippers, and/or power dremel instrumentation - 00578.? * Procedure Codes:?32219 DEBRI DE SKIN/TISSUE, Modifiers: XS 02342 ACTIVE WOUND CARE/20 CM OR <, Modifiers: XS 40786 DEBRIDE NAIL, 6 OR MORE, Modifiers: XS 87489 TRIM SKIN LESIONS, 2 TO 4, Modifiers: XS * Preventive Medicine:? ??Counseling:?Discussion:?-13: Office or other outpatient visit for the evaluation and management of an established patient, which required a medically appropriate history and/or examination and LOW level of DECISION MAKING for: 1 STABLE ACUTE UNCOMPLICATED PROBLEM, 2 OR MORE MINOR PROBLEMS, OR 1 STABLE CHRONIC PROBLEM, THAT POSE(S) A LOW RISK FOR MORBIDITY/MORTALITY. The visit on the day of the encounter encompassed interpreting the data and educating the patient as to the nature of their condition, treatment options available according to their individual PMH, meds, allergies, and overall health/living conditions, as well as any potential risks or complications that may occur from a failure to adhere to, and participate in, the recommended course of therapy. The discussion included a complete verbal, and/or written explanation of the examination results, any x-rays taken, the proposed diagnosis, and outline of the treatment plan. A schedule for future care needs was also explained. The patient verbalized an understanding of the instructions at this time and agreed to be an active participant in their treatment. If the patient should think of any questions or concerns after the visit, I have encouraged the patient to call the office.?Consult:?The patient was counseled on the diagnosis, treatment options, and the CONT need for a, Wound Care Center Consult due to pedal risk of limb/life.?Shoe Gear Counseling:?Patient to obtain shoes hopefully soon, A thorough inspection of the patients Rxed shoegear and inserts was performed and findings communicated. We reviewed the many important medical advantages for adhering to regularly wearing these shoe and insert accomidative devices daily as well as reviewed the fact that a failure in accepting these recommedations may be deleterious, unable to prevent, and disadvantagely result in, many pedal complications such as skin irritation, skin ulceration, infection, and even loss of toe/foot/leg/or even their life. Time was also spent reviewing the proper footcare techniques including daily skin moisturization, daily foot inspection for any interruption in skin integrity, open lesions, or sign of infection such as redness/malodor/drainage/swelling as well as daily shoe inspection for the presence of internal foreign bodies and shoe as well as insert wear. Patient questions re: shoes, inserts, and self foot inspections were answered to their satisfaction as the patient verbally confirmed a full understanding of the above information.?Ulcer:?The patient is to apply ( Silver or [...] Debridement frequency as indicated, cont Wound care referral, A detailed plan of care was reviewed with the patient. We emphasized the fact that the patient takes on an active participating role in the treatment process and emphasized to them that they are an included, valued, and important member of the wound healing team in order to reach an expedient successful outcome. The patient agreed to follow their medically recommended diet while increasing their protein intake if safely able to do so, maintain proper bodily hydaration, abide by weight-bearing restrictions at all times, quit all current smoking habits if any, and diligently follow any/all dressing change instructions. It was clearly made known to the patient that if they fail to do their part, they will likely extend their course of treatment as well as possibly increase their risk of adverse events including amputation, CONT Referral to [facility] due to pedal risk of limb/life.? * Follow Up:?prn * Images: * Sign off status: Completed true * Provider:?Mic Mo DPM Date:?2023 Generated for Nighat neely/Duncan/Melo on:?06/22/2024 03:37 PM EST History and Physical Notes * HPI (History of Present Illness) Category Sub-Category Detail Notes Category Not es Toe pain Treatments: Rx shoes Skin problems Treatments: Local care consi sting of daily distilled water wound cleanse, topical antibiotic as recommended, application of sterile dressing, offloading/pressure reduction via rest, shoe modification, insert modification, accommodative padding, assisted ambulation via cane, walker, and surgical debridement. Regular follow up with [facility] Wound Care clinic with Silver Alginate to wounds At Risk footcare Pt States Last PCP Visit: Date: 01/12/2024 [facility] States , Dennis, is not doing well with her brain CA Examination Category Sub-Category Detail Notes Category Not es Neurological SENSORY: Neurological exa m demonstrates, reduced light touch sensation, reduced sharp/dull discrimination , reduced vibration sensation, reduced proprioception sensation, B/L, 5.07 monofilament test performed at plantar aspects of 5 varied sites per foot shows sensation, reduced, B/L Dermatologic SKIN FINDINGS: Skin exam reveal s Keratotic lesion(s) located at , SUB MTH (s), 1, B/L, Plantar, Heel(s), B/L ULCER: LOCATION, Plantar, 3 MTH, LEFT, SIZE, NOW 9mm X 6mm X 3mm, BASE, fibro- granular, RIM, hyperkeratotic, UNDERMINING, moderate today, TRACKING, Sub Q with Fat layer exposed, DRAINAGE, serosanguineous, moderate, NECROTIC TISSUE, loosely-adherent, yellow slough, MALODOR, absent, CALOR, absent, ERYTHEMA, absent LOCATION, Distal, Plantar, TA, SIZE, NOW 8mm X 8mm X 2mm, BASE, fibro-granular, RIM, hyperkeratotic, UNDERMINING, mild, TRACKING, Full thickness breakdown of skin, DRAINAGE, serosanguineous, moderate, NECROTIC TISSUE, loosely-adherent, yellow slough, MALODOR, absent, CALOR, absent, ERYTHEMA, absent Orthopedic FOOTWEAR: good condition, exhibit proper fit and accommodation for pedal deformities. OT were inspected and noted to be worn, but in good condition giving proper support at the present time DIGITAL DEFORMITIES: Amputation T5, Digi ferny contracture, IPJ/PIPJ, TA, T1, T9, incompl-reducible to push-up test, no over, nor underlapping , no longer, with evidence of shoe producing skin irritation Nails NAILS are: Elongated, overg rown, dystrophic, lytic, greater than 3mm thick, discolored and friable with crumbly malodorous subungual debris, , 1-5 Left foot , T6 , T7 , T8 , T9
--- OUTSIDE RECORDS SUMMARY | 2024-06-22 15:37 | XMS_ITS | Patient Health Record ---
[facility] Address [address] [place] [address] Care Team Providers Care Senior Strategy Manager Name Role Phone Jos Mirza MD Primary Care Provider Mic Thibodeaux Unavailable [phone] Allergies Allergen (clinical drug ingredient) Drug/Non Drug Allergy documented on EMR Reaction Allergy Type Onset Date Status Adhesive Tape rash, itching Drug Allergy Active Latex Latex Unknown Allergy Active omeprazole Omeprazole legs swelling, kidney issues Drug Allergy Active Results Component Value Reference Range Notes HEMOGLOBIN A1C (GLYCOHEMOGLO BIN) Reviewed date:11/20/2023 02:44:13 PM Interpretation: Performing Lab: Notes/Report: HEMOGLOBIN A1C % (HH) 6.1 Reason For Referral No Information Medications Medication SIG (Take, Route, Frequency, Duration) Notes Start Date End Date Status NIFEdipine ER 90 MG 1 tablet on an empty stomach Orally Once a day Active Omeprazole 20 MG 1 capsule 30 minutes before morning meal Orally Once a day for 30 day(s) Not-Taking Vitamin B12 1000 MCG 1 tablet Orally Onc e a day Active Probiotic Not-Taking Vitamin D3 1000 UNIT 1 capsule Orally On ce a day Active Iodosorb 0.9 % as directed External ly Apply to ulceration daily with dry sterile dressing for 30 days 10/01/2021 Not-Taking Extra Depth Orthopedic Shoes (1 Pair) with Customized Heat Molded Multidensity Innersoles (3 Pair) as directed Dx: NIDDM/Polyneuropathy (E11.42), Hammertoe Foot Deformity (M20.41,M20.42), Preulcerative Skin Lesion(s) (L85.1 11/20/2023 Active Losartan Potassium 100 MG 1 tablet Orally Once a day Not-Taking Doxycycline Monohydrate 100 MG 1 capsule Orally Once a day for 10 day(s) Not-Taking INVanz Not-Taking Probiotic Not-Taking Aspirin 81 MG 1 tablet Orally Once a day Not-Taking Pantoprazole Sodium 20 MG 1 tablet Orally Once a day Not-Taking Flaxseed Oil 1000 MG Orally Not-Taking hydrALAZINE HCl 25 MG 1 tablet with food Orally Three times a day Active Cephalexin 500 MG 1 capsule Orally joan ry 8 hrs for 10 days Not-Taking Clopidogrel Bisulfate 75 MG 1 tablet Orally Once a day for 30 day(s) Active Calcium 600 MG 1 tablet with meals Orally Once a day Not-Taking Multi Vitamin Active Vitamin C 1000 MG 1 tablet Orally Once a day Not-Taking Metoprolol Succinate 25 MG 1 capsule Orally Once a day for 30 day(s) Active Fish Oil 1000 MG 1 capsule Orally Onc e a day Not-Taking Immunizations Vaccine Route Administration Date Status Comme nts Influenza Unknown 01/23/2022 Administered Influenza Unknown 01/23/2023 Administered COVID-19 Pfizer BioNTech Vaccine Unknown 02/19/2021 Administered 2nd 07/21/2020 1st 06/25/2020 Social History Tobacco Use: Social History Observation [...] Problem Status W/U Status Risk Notes Problem Acquired hammer toe of right foot (431299966493463 5) Other hammer toe(s) (acquired), right foot (M20.41) Active confirmed Response to treatment,Im provement Problem Acquired hammer toe of left foot (728042763305651 3) Other hammer toe(s) (acquired), left foot (M20.42) Active confirmed Response to treatment,Im provement Problem Polyneuropathy due to type 2 diabetes mellitus (096102037) Type 2 diabetes mellitus with diabetic polyneuropathy (E11.42) Active confirmed Problem Ulcer of toe of left foot (disorder) (815111018823773 02) Skin ulcer of toe of left foot, limited to breakdown of skin (L97.521) Active confirmed Response to treatment improving Problem 669583061 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 confirmed Response to treatment, improving, Unresolved Vital Signs Blood pressure diastolic 70 mm Hg 04/19/2024 Height 6 ft 3 in in 04/19/2024 Blood pressure systolic 120 mm Hg 04/19/2024 Weight 195 lbs 04/19/2024 BMI 24.37 kg/m2 04/19/2024 Procedures Procedure Date Ordered Date Performed Result Body Sit e 99703-LOUFJLM NAIL, 1-5 08/11/2023 N/A 79366-DTTJRFY SKIN/TISSUE 08/11/2023 N/A 66967-FLAQ SKIN LESIONS, 2 TO 4 08/11/2023 N/A D8300-GSOIKDBK DYSTROPHIC NAILS ANY # 08/11/2023 N/A 93547-NQKYQUE NAIL, 6 OR MORE 11/20/2023 N/A 39541-HMZWJYA SKIN/TISSUE 11/20/2023 N/A 97790-MIFX SKIN LESIONS, OVER 4 11/20/2023 N/A 59055-TDAGPIQ NAIL, 6 OR MORE 02/02/2024 N/A 39757-LCLYLGI SKIN/TISSUE 02/02/2024 N/A 69756-OCMJ SKIN LESIONS, 2 TO 4 02/02/2024 N/A 19013-CBNVLUS NAIL, 6 OR MORE 04/19/2024 N/A 84563- Debride <25 sq cm 04/19/2024 N/A 56178-RXICRLR SKIN/TISSUE 04/19/2024 N/A 10936-GUMV SKIN LESIONS, 2 TO 4 04/19/2024 N/A Encounters Encounter Location Date Provider Diagnosis [address] [address] 08/11/2023 Mic Mo Type 2 diabetes mellitus with diabetic polyneuropathy E11.42 ; Tinea unguium B35.1 and Neuropathic ulcer of left heel with fat layer exposed L97.[address] [place] [address] [address] 11/20/2023 Mic Mo Type 2 diabetes mellitus with diabetic polyneuropathy E11.42 ; Tinea unguium B35.1 ; Neuropathic ulcer of left foot with fat layer exposed L97.522 ; Other hammer toe(s) (acquired), right foot M20.41 and Other hammer toe(s) (acquired), left foot M20.[address] [address] 02/02/2024 Mic Mo Type 2 diabetes mellitus with diabetic polyneuropathy E11.42 ; Tinea unguium B35.1 and Neuropathic ulcer of left foot with fat layer exposed L97.[address] [address] 04/19/2024 Mic Mo Type 2 diabetes mellitus with diabetic polyneuropathy E11.42 ; Tinea unguium B35.1 ; Neuropathic ulcer of left foot with fat layer exposed L97.522 ; Other hammer toe(s) (acquired), right foot M20.41 ; Other hammer toe(s) (acquired), left foot M20.42 and Skin ulcer of toe of left foot, limited to breakdown of skin L97.[address] [address] 07/31/2023 Mic Mo Assessments Encounter Date Diagnosis (ICD Code) Assessment Notes Treatment Notes Treatment Clinical Notes Section Notes 08/11/2023 Tinea unguium (ICD-10 - B35.1) 08/11/2023 Type 2 diabetes mellitus with diabetic polyneuropathy (ICD-10 - E11.42) 02/02/2024 Type 2 diabetes mellitus with diabetic polyneuropathy (ICD-10 - E11.42) 02/02/2024 Tinea unguium (ICD-10 - B35.1) 11/20/2023 Type 2 diabetes mellitus with diabetic polyneuropathy (ICD-10 - E11.42) 11/20/2023 Tinea unguium (ICD-10 - B35.1) 04/19/2024 Type 2 diabetes mellitus with diabetic polyneuropathy (ICD-10 - E11.42) 04/19/2024 Tinea unguium (ICD-10 - B35.1) 11/20/2023 Neuropathic ulcer of left foot with fat layer exposed (ICD-10 - L97.522) Response to treatment Patient Educated with: WOUND CARE INSTRUCTIONS. pdf (WOUND CARE INSTRUCTIONS. pdf) 04/19/2024 Neuropathic ulcer of left foot with fat layer exposed (ICD-10 - L97.522) Response to treatment, improving, Unresolved Patient Educated with: WOUND CARE INSTRUCTIONS. pdf (WOUND CARE INSTRUCTIONS. pdf) 02/02/2024 Neuropathic ulcer of left foot with fat layer exposed (ICD-10 - L97.522) Response to treatment,Unres olved Patient Educated with: WOUND CARE INSTRUCTIONS. pdf (WOUND CARE INSTRUCTIONS. pdf) 08/11/2023 Neuropathic ulcer of left heel with fat layer exposed (ICD-10 - L97.422) Response to treatment,Uncha nged Patient Educated with: WOUND CARE INSTRUCTIONS. pdf (WOUND CARE INSTRUCTIONS. pdf) 04/19/2024 Other hammer toe(s) (acquired), right foot (ICD-10 - M20.41) Response to treatment,Impro vement 04/19/2024 Other hammer toe(s) (acquired), left foot (ICD-10 - M20.42) Response to treatment,Impro vement 11/20/2023 Other hammer toe(s) (acquired), right foot (ICD-10 - M20.41) Patient Educated with: DIABETIC FOOT CARE INSTRUCTIONS. pdf (DIABETIC FOOT CARE INSTRUCTIONS. pdf) 11/20/2023 Other hammer toe(s) (acquired), left foot (ICD-10 - M20.42) 04/19/2024 Skin ulcer of toe of left foot, limited to breakdown of skin (ICD-10 - L97.521) Response to treatment improving Patient Educated with: WOUND CARE INSTRUCTIONS. pdf (WOUND CARE INSTRUCTIONS. pdf) 02/02/2024 Other 04/19/2024 Other Plan Of Treatment Pending Test Test Name Order Date X ray : Foot, left 3V 05/26/2023 54667-FHOFMPH NAIL, 6 OR MORE 05/26/2023 67271-FYPIROY NAIL, 6 OR MORE 11/20/2023 45071-OSSCCEZ NAIL, 6 OR MORE 02/02/2024 10988-GWDBTBV NAIL, 6 OR MORE 04/19/2024 60928-VTLGSWX NAIL, 6 OR MORE 10/16/2017 05405-LLTDWUN NAIL, 6 OR MORE 12/22/2017 30636-SIEOQGQ NAIL, 6 OR MORE 05/07/2018 10935-AILAMQE NAIL, 6 OR MORE 07/16/2018 48245-AHJEXBM NAIL, 6 OR MORE 02/23/2018 49498-KSMNNLK NAIL, 6 OR MORE 09/24/2018 45915-WLLJETA NAIL, 6 OR MORE 12/10/2018 64763-WVLBDSW NAIL, 6 OR MORE 03/01/2019 87135-XYAUJDS NAIL, 6 OR MORE 05/31/2019 70755-HVBHDQH NAIL, 6 OR MORE 09/27/2019 42326-UFAAIHV NAIL, 6 OR MORE 01/03/2020 87126-GQYHZRK NAIL, 6 OR MORE 03/30/2020 53738-SDOGPOZ NAIL, 6 OR MORE 06/15/2020 45119-NALRUAN NAIL, 6 OR MORE 09/14/2020 53007-VVKFXGA NAIL, 6 OR MORE 04/23/2021 73882-VAKCPQO NAIL, 6 OR MORE 08/30/2021 16064-MHHDPVP NAIL, 6 OR MORE 11/15/2021 61878-FQLTXJO NAIL, 6 OR MORE 02/07/2022 17761-FVPLYUN NAIL, 6 OR MORE 04/25/2022 47617-BHDDKNP NAIL, 6 OR MORE 07/01/2022 74546-DMEUBBA NAIL, 6 OR MORE 09/02/2022 42190-HVQOXMP NAIL, 6 OR MORE 11/21/2022 10895-LYLXAVA NAIL, 6 OR MORE 01/30/2023 25814-EPUNZCB NAIL, 1-5 08/11/2023 70085- Debride <25 sq cm 05/26/2023 47711- Debride <25 sq cm 04/19/2024 73514- Debride <25 sq cm 08/08/2022 23074- Debride <25 sq cm 07/01/2022 28267- Debride <25 sq cm 04/25/2022 69930- Debride <25 sq cm 12/20/2021 54076- Debride <25 sq cm 02/10/2020 78272- Debride <25 sq cm 01/03/2020 09684-GQFHSCS SKIN/TISSUE 12/26/2019 17023-OBLTJHD SKIN/TISSUE 02/10/2020 56549-GGKKQFD SKIN/TISSUE 03/30/2020 76066-ISKAHAC SKIN/TISSUE 10/10/2019 21442-IJCSYLV SKIN/TISSUE 10/25/2019 80264-NZXLBLP SKIN/TISSUE 03/19/2022 96239-RZPLBKJ SKIN/TISSUE 01/30/2023 63528-XVGGWCX SKIN/TISSUE 11/15/2021 37595-FWEQSWQ SKIN/TISSUE 08/30/2021 48091-WZPISHE SKIN/TISSUE 09/10/2021 42269-NHFMZRW SKIN/TISSUE 10/01/2021 93436-JLOKLLU SKIN/TISSUE 06/15/2020 81829-CADNKEG SKIN/TISSUE 04/19/2024 51472-ZVDFQMH SKIN/TISSUE 02/02/2024 57805-YUEYLVG SKIN/TISSUE 11/20/2023 15602-GXAICZH SKIN/TISSUE 06/25/2022 85453-AXSQEAC SKIN/TISSUE 05/26/2023 10013-HFYQXXJ SKIN/TISSUE 08/11/2023 30139 I&D ABSCESS- SIMPLE,SINGLE 020 67613-KIIA SKIN LESIONS, OVER 4 10/17/19 18 90813-EWVS SKIN LESIONS, OVER 4 09/27/19 20 56957-LAWN SKIN LESIONS, OVER 4 05/31/19 20 44757-JYMD SKIN LESIONS, OVER 4 03/30/20 20 33068-NAYS SKIN LESIONS, OVER 4 01/03/20 20 81012-KOVU SKIN LESIONS, OVER 4 03/01/20 19 07976-WKOA SKIN LESIONS, OVER 4 12/11/19 19 19921-RQWF SKIN LESIONS, OVER 4 09/25/19 19 45077-KFPU SKIN LESIONS, OVER 4 05/07/20 18 64984-UZWT SKIN LESIONS, OVER 4 07/16/19 19 09942-WESQ SKIN LESIONS, OVER 4 02/24/20 18 42868-UEDR SKIN LESIONS, OVER 4 12/23/19 18 79504-TLTP SKIN LESIONS, OVER 4 06/15/19 21 31258-XYHR SKIN LESIONS, OVER 4 04/23/20 21 30746-HSWK SKIN LESIONS, OVER 4 09/15/19 79171-JAAZ SKIN LESIONS, OVER 4 08/31/19 57137-DUTT SKIN LESIONS, OVER 4 11/16/19 86811-LYEF SKIN LESIONS, OVER 4 02/08/20 90298-ARGN SKIN LESIONS, OVER 4 01/31/20 90652-FVIA SKIN LESIONS, OVER 4 11/22/19 21238-AHHA SKIN LESIONS, OVER 4 09/03/19 32003-COJO SKIN LESIONS, OVER 4 04/25/20 64403-MIZO SKIN LESIONS, OVER 4 07/01/19 03011-CCCE SKIN LESIONS, OVER 4 05/26/19 34574-SHFP SKIN LESIONS, OVER 4 11/20/19 75957-PYJI SKIN LESIONS, 2 TO 4 02/02/20 92103-HOSK SKIN LESIONS, 2 TO 4 04/19/20 84458-MWZV SKIN LESIONS, 2 TO 4 08/11/19 H9130-FJVHCIQG DYSTROPHIC NAILS ANY # 70296-Esujuicrz, Toes 10/25/2019 06502 - Tenotomy, open flexor 02/28/2020 36539 - Tenotomy, open flexor 09/03/2018 41021 - Tenotomy, open flexor 07/15/2022 92560 - Tenotomy, open flexor 08/15/2022 29650 - Tenotomy, open flexor 01/13/2023 30338 - Tenotomy, open flexor 07/03/2020 Next Appt Details Provider Name:Mic Mo , 07/22/2024 12:45:00 PM, [address] [place], [address], Insurance Providers Payer Name Payer Address Payer Phone Subscriber Number Group Number Insured Name Patient Relationship to Insured Coverage Start Date Coverage End Date [employer] [place] [employer] [address] [facility] [place] [address] [id number] Karthikeyan Lazo Self - patient is the insured Medical (General) History Medical History History ICD Code High blood pressure Kidney disease Numbness type II diabetes covid-19 Surgical History Surgery Date(Month/Year) R eye surgery Mathew cuellar 2020 L 2nd hammer toe 05/31/2021 endoscopy 03/15,05/15 Right 2nd toe for osteo 07/17/23 torn retna cataract surgery amputation, right great toe - 08/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
--- OUTSIDE RECORDS SUMMARY | 2024-06-22 15:37 | XMS_ITS ---
Author Organization [facility] Address [address] [place] [address] Care Team Providers Care Sponge Diver Name Role Phone Jos Mirza Primary Care Provider Too Torres Jr REASON FOR VISIT cancel appt Encounters Encounter Location Date Provider Diagnosis [facility] [address] [place] [address] 04/01/2023 Too Casey Jr PLAN OF TREATMENT No Information
--- OUTSIDE RECORDS SUMMARY | 2024-06-22 15:37 | XMS_ITS | Encounter Summary ---
Author Organization [facility] Address [address] [place] [address] Phone Care Team Providers Care Accelerator Operator Name Role Phone JuneJos laird DO Primary Care Provider [phone] Encounter Details Date Type Department Care Team (Late st Contact Info) Description 10/15/2022 Telephone [facility] [address] [place] [address] Mehnaz Lamb Social History Tobacco Use Types Packs/Day Years Used Date Smoking Tobacco: Never Alcohol Use Standard Drinks/Week Comments No 0 (1 standard drink = 0.6 oz pur e alcohol) Sex and Gender Information Value Date Recorded Sex Assigned at Not on file Legal Sex Male 4:51 PM EST Gender Identity Not on file Sexual Orientation Not on file documented as of this encounter Miscellaneous Notes * Telephone Encounter - Mehnaz Lamb - 10/15/2022 9:15 AM EDT PT says he has been struggling with regurgitation so he was recently advised to start taking the medication Pantoprazol 20 MG 1 x a daily. PT is worried that this will interfere with his kidney function, he would like to talk to Dr. Hernández in regards to this. documented in this encounter Plan of Treatment Not on file documented as of this encounter Visit Diagnoses Not on filedocumented in this encounter Care Teams Accelerator Operator Relationship Specialty Start Date End Date JuneJos laird DO [address] [facility] [id number] PCP - General 06/04/20 documented as of this encounter
--- OUTSIDE RECORDS SUMMARY | 2024-06-22 15:38 | XMS_ITS | Patient Health Record ---
Author Organization [facility] Address [address] [place] [address] Care Team Providers Care Construction Rigger Name Role Phone Jos Mirza Primary Care Provider Too Torres Jr Unavailable ALLERGIES Allergen (clinical drug ingredient) Drug/Non Drug Allergy documented on EMR Reaction Allergy Type Onset Date Status Latex Latex Unknown Allergy Active REASON FOR REFERRAL No Information MEDICATIONS Medication SIG (Take, Route, Frequency, Duration) Notes Start Date End Date Status Vitamin B12 500 MCG 1 tablet Orally Once a day for 30 day(s) Active Calcium 600 MG 1 tablet with meals Orally Once a day Active NIFEdipine ER 90 MG Oral for 90 Active Metoprolol Succinate ER 25 MG 1 tablet Orally Once a day for 30 day(s) Active Flaxseed Oil 1000 MG as directed Orally Active Pantoprazole Sodium 20 MG 1 tablet Orall y Once a day for 30 day(s) Active Vitamin C 500 MG as directed Orally Active Fish Oil 1000 MG 1 capsule Orally Onc e a day for 30 day(s) Active Vitamin D3 1000 UNIT 1 capsule Orally On ce a day for 30 day(s) Active IMMUNIZATIONS Vaccine Route Administration Date Status Comme nts Influenza Unknown 02/10/2019 Administered Influenza Unknown 03/26/2021 Administered Influenza Unknown 03/11/2022 Administered SOCIAL HISTORY Tobacco Use: Social History Observation Description Date Details (start date - stop date) Never Smoker NA - NA Sex Assigned At : Social History Observation Description Sex Assigned At Unknown Tobacco Use/Smoking Question Answer Notes Patient is a nonsmoker Alcohol Screen Question Answer Notes Did you have a drink contain ing alcohol in the past year? Yes How often did you have a dri nk containing alcohol in the past year? Monthly or less (1 point) How often did you have 6 or more drinks on one occasion in the past year? Never (0 point) Points 1 Interpretation Negative PROBLEMS Problem Type ICD Code Onset Dates Problem Status W/U Status Risk SNOMED Code Notes Problem Hypertension, unspecified type (I10) Active confirmed 60063149 Problem Esophageal stricture (K22.2) Active confirmed 37648036 Problem Regurgitation of food (R11.10) Active confirmed 382458848 Problem Other dysphagia (R13.19) Active confirmed 30800114 Problem Gastric polyp (K31.7) Active confirmed 44126695 Problem Dysphagia (R13.10) Active confirmed Dys phagia (38048442) Problem Achalasia (K22.0) Active confirmed 4556 7301 PLAN OF TREATMENT Future Test Test Name Order Date UPPER GI ENDOSCOPY BALLOOON DILATION OF ESOPH 03/11/2019 UPPER GI ENDOSCOPY BALLOOON DILATION OF ESOPH 02/17/2022 UPPER GI ENDOSCOPY 03/12/2022 Insurance Providers Payer Name Payer Address Payer Phone Subscriber Number Group Number Insured Name Patient Relationship to Insured Coverage Start Date Coverage End Date [facility] [address] [place] [phone] [id number] LUNA LAM Self - patient is the insured MEDICAL (GENERAL) HISTORY Medical History History ICD Code Type 2 diabetes mellitus, neuropathy hypertension kidney disease, stage 3 LINDA/CPAP SVT Diabetic foot infection Aortic stenosis Surgical History Surgery Date(Month/Year) Hospitalization History Reason Date(Month/Year) [place], bone infection 2020
--- OUTSIDE RECORDS SUMMARY | 2024-06-22 15:38 | XMS_ITS | Continuity of Care Document ---
Author Organization [facility], [facility] Address [address] [place] [address] [place] [address] Assessment No assessment recorded. Plan of Treatment Reminders Order Date Submit Date Provider Last Modified By Organization Details Last Modified Time Details Appointments None recorded. Lab None recorded. Referral None recorded. Procedures None recorded. Surgeries None recorded. Imaging US, abdomen, limited 025 025 [facility] Central Scheduling, [address] [place], [address], 5 08:39:02 Medication Orders None recorded. Patient TargetsNo targets recorded. Patient InstructionsNo instructions recorded. Reason for Referral None Reported. Results Created Date Observation Date Name Description Value Unit Range Abnormal Flag Note LastModifiedBy Organization Detail LastModifiedTime 05/20/20 24 04/14/2024 US, duple x, arter ial, lower extre mity No observ ation record ed. [facility] (Medical Records) [address] [place], [address], 05/20/2024 09:51:40 Result Notes None recorded. Problems Name Problem SNOMED Code Status Onset Date Resolution Date Notes Provider Name and Address Organization Details Recorded Time Gastroeso phageal reflux disease 065831334 Active 2017 Not Available [facility] 14:23:18 Esophagea l web / ring 502289944 Active 2017 Not Available [facility] 14:23:18 Hypertens esperanza disorder 50812625 Active 2017 white coat Not Available [facility] 14:23:18 Osteomyel itis 20191181 Active 2017 Not Available [facility] 03/23/202 1 14:23:18 Chronic kidney disease 141026865 Active 2017 Not Available [facility] 1 14:23:18 Inflamed seborrhei c keratosis 714066538 Active 2017 Not Available [facility] 1 14:23:18 Type 2 diabetes mellitus 64875673 Active 2017 Not Available [facility] 1 14:23:18 Neuropath y due to diabetes mellitus 853667235 Active 2017 Not Available [facility] 1 14:23:18 Systolic murmur 11077830 Active 2019 Not Available [facility] 1 14:23:18 Labile hypertens ion due to being in a clinical environme nt 150140109 Active 2019 Not Available [facility] 1 14:23:18 Hiatal hernia 35659978 Active 2020 MANUEL Garrett [address] [place] [address], [address], [facility] 1 10:33:42 COVID-19 624900590 Active 2022 MANUEL BILLS [address] [place] [address], [address], [facility] 3 12:31:00 Ulcer of toe 291443972 Active 2022 Jos Mirza DO [address] [place] [address], [address], [facility] 3 13:58:08 Aortic stenosis, non-rheum atic 409759070 Active 2022 Jos Mirza DO [address] [place] [address], [address], [facility] 3 10:51:05 Bilateral lower leg edema 539678991 Active 2022 Jos Mirza DO [address] [place] [address], [address], [facility] 3 10:51:39 Achalasia 75037402 Active 2022 type 2 MANUEL BILLS [address] [place] [address], [address], [facility] 3 12:43:54 Aspiratio n pneumonia 610488767 Active 2022 MANUEL BILLS [address] [place] [address], [address], [facility] 3 10:38:39 Ulcer of foot 61471258 Active 2023 Jos Mirza, DO [address] [place] [address], [address], [facility] 4 14:45:58 Cataract due to diabetes mellitus type 2 633877660 Active 2023 Jos Mirza, DO [address] [place] [address], [address], [facility] 4 14:50:18 Osteomyel itis of right foot 030698461745 9100 Active 2023 MANUEL BILLS [address] [place] [address], [address], [facility] 4 15:43:38 Chronic regurgita tion 53831845 Active 2023 Jos Mirza, DO [address] [place] [address], [address], [facility] 4 14:17:34 Osteomyel itis of left foot 896733400672 9107 Active 2023 Jos Mirza, DO [address] [place] [address], [address], [facility] 4 21:23:01 Abnormal weight loss 291849204 Active 2023 MANUEL BILLS [address] [place] [address], [address], [facility] 4 11:18:46 Essential hypertens ion 47236407 Active 2023 MANUEL BILLS [address] [place], [address], [facility] 4 15:50:51 Fall Active 2023 MANUEL BILLS [address] [place] [address], [address], [facility] 4 09:44:26 Physical deconditi oning 871146640502 02 Active 2023 MANUEL BILLS [address] [place] [address], [address], [facility] 4 09:47:23 Pain of left knee joint 225800933102 107 Active 2023 MANUEL BILLS [address] [place] [address], [address], [facility] 4 09:51:19 Acute hyperkale desiree 6976181 Active 2023 MANUEL BILLS [address] [place] [address], [address], [facility] 4 09:55:08 Right inguinal hernia 527928797 Active 2024 MANUEL BILLS [address] [place] [address], [address], [facility] 5 14:20:52 Notes:Some problems listed i n Documents: #[id number], #[id number], #[id number], #[id number], #[id number] could not be added to this patient's chart. Please review these documents and add these problems to the patient's chart manually as needed. Problem Notes None recorded. Procedures Surgical History Date Name Laterality Status Provider Name and Address Organization Details Recorded Time 020 Arthrocentesis Major Joint/Bursa completed August MAURIZIO Parker [address] [place] [address], [address], [facility] 07/29/2019 11:49:15 020 Removal of foreign body in ear canal completed August MAURIZIO Parker [address] [place] [address], [address], [facility] 07/29/2019 11:50:25 Imaging Results None recorded. Procedure Notes None recorded. Medical Equipment None Reported. Allergies Allergen ID Allergen Name Allergen Category Reaction Reaction Severity Criticality Documentation Date Start Date Code Code System Note Provider Name and Address Organization Details Recorded Time 2511 adhesive environme nt,medica tion Not available Not available Not available 04/09/2018 [id number] UNK Simi Riddle [facility] 8 15:08:01 Medications Name Sig Start Date Stop Date Status Note LastModified by Organization Details LastModified Time freestyle eliu 12/01 completed Not Available Not Available Not Available freestyle mis lancets 12/01 completed Not Available Not Available Not Available freestyle lancets misc active Not Available Not Available Not Available losartan 50 mg tablet Take 1 tablet every day by oral route. 07/14 completed Not Available Not Available Not Available nifedipin e ER 30 mg tablet,ex tended release 24 hr 09/08 completed Not Available Not Available Not Available neomycin- polymyxin -hydrocor t 3.5 mg/mL-10, 000 unit/mL-1 % ear solution 09/08 completed Not Available Not Available Not Available clonidine HCl 0.1 mg tablet 09/08 completed Not Available Not Available Not Available acetamino phen 325 mg tablet TAKE 2 TABLETS BY MOUTH EVERY 6 HOURS FOR UP TO 10 DAYS NEEDED FOR PAIN OR MILD TO MODERATE PAIN 2023 active Not Available Not Available Not Avai lable prednison e 10 mg tablet 50 mg x 2 days40 mg x 2 days30 mg x 2 days20 mg x 2 days10 mg x 2 days5 mg x 2 days 06/20 completed 06/20/22 - stopped early PER RT due to spike in sugars Not Available Not Available Not Available nitrofura ntoin macrocrys ferny 50 mg capsule Take 1 capsule every 6 hours by oral route. 04/09 completed Not Available Not Available Not Available doxycycli ne hyclate 100 mg capsule 06/10 completed Not Available Not Available Not Available azithromy mariah 250 mg tablet TAKE 2 TABLETS (500 MG) BY ORAL ROUTE ONCE DAILY FOR 1 DAY THEN 1 TABLET (250 MG) BY ORAL ROUTE ONCE DAILY FOR 4 DAYS 07/25 completed Not Available Not Available Not Available nifedipin e ER 90 mg tablet,ex tended release TAKE 1 TABLET BY MOUTH ONCE DAILY 2024 active Not Available Not Available Not Avai lable ofloxacin 0.3 % eye drops INSTILL 1 DROP INTO LEFT EYE FOUR TIMES DAILY STARTING THE DAY AFTER SURGERY AND CONTINUI NG 09/03 completed Not Available Not Available Not Available benzonata te 200 mg capsule TAKE 1 CAPSULE BY MOUTH THREE TIMES DAILY FOR 7 DAYS NEEDED 07/25 completed Not Available Not Available Not Available metoprolo l succinate ER 50 mg tablet,ex tended release 24 hr Take 1 tablet every day by oral route for 90 days. 06/10 completed Not Available Not Available Not Available FreeStyle Test strips USE TO TEST ONCE DAILY 06/10 completed Not Available Not Available Not Available FreeStyle Lancets 28 gauge USE TO TEST ONCE DAILY active Not Available Not Available No t Available famotidin e 40 mg tablet TAKE 1 TABLET BY MOUTH TWICE DAILY 07/25 completed Not Available Not Available Not Available hydralazi ne 25 mg tablet TAKE 1 TABLET BY MOUTH THREE TIMES DAILY active Not Available Not Available No t Available clopidogr el 75 mg tablet TAKE 1 TABLET BY MOUTH DAILY active Not Available Not Available No t Available amlodipin e 5 mg tablet 09/08 completed Not Available Not Available Not Available aspirin 81 mg tablet,de layed release Take 1 tablet every day by oral route. 10/11 completed Not Available Not Available Not Available doxycycli ne monohydra te 100 mg tablet TAKE 1 TABLET BY MOUTH TWICE DAILY FOR 14 DAYS 04/26 completed Not Available Not Available Not Available vancomyci n 125 mg capsule TAKE 1 CAPSULE BY MOUTH FOUR TIMES DAILY FOR 10 DAYS 07/22 completed Not Available Not Available Not Available pantopraz ole 20 mg tablet,de layed release TAKE 1 TABLET BY MOUTH DAILY 01/11 completed Not Available Not Available Not Available ketorolac 0.5 % eye drops INSTILL 1 DROP IN LEFT EYE THREE TIMES DAILY. START 2 DAYS BEFORE EYE SURGERY 09/03 completed Not Available Not Available Not Available cefadroxi l 500 mg capsule 09/08 completed Not Available Not Available Not Available famotidin e 20 mg tablet TAKE 1 TABLET BY MOUTH TWICE DAILY 07/25 completed Not Available Not Available Not Available prednisol one acetate 1 % eye drops,lesly pension SHAKE LIQUID AND INSTILL 1 DROP IN LEFT EYE FOUR TIMES DAILY FOR 5 DAYS. START AFTER LASER TREATMEN T - SHAKE BOTTLE WELL 01/11 completed Not Available Not Available Not Available nifedipin e ER 60 mg tablet,ex tended release 24 hr 03/24 completed Not Available Not Available Not Available linezolid 600 mg tablet 04/16 completed Not Available Not Available Not Available nifedipin e ER 90 mg tablet,ex tended release 24 hr Take 1 tablet every day by oral route for 90 days. 06/10 completed Not Available Not Available Not Available cephalexi n 500 mg capsule TAKE 1 CAPSULE BY MOUTH EVERY 8 HOURS FOR 10 DAYS 09/03 completed Not Available Not Available Not Available metformin 1,000 mg tablet 09/08 completed Not Available Not Available Not Available metoprolo l tartrate 50 mg tablet 09/08 completed Not Available Not Available Not Available betametha sone dipropion ate 0.05 % topical cream JOSE THIN LAYER EXT AA QD 08/15 completed Not Available Not Available Not Available omeprazol e 20 mg capsule,d elayed release TAKE 1 CAPSULE BY MOUTH EVERY DAY 30 MINUTES BEFORE BREAKFAS T 07/25 completed Not Available Not Available Not Available dorzolami de 22.3 mg-timolo l 6.8 mg/mL eye drops INSTILL 1 DROP IN LEFT EYE TWICE DAILY 09/03 completed Not Available Not Available Not Available hydrocort isone 2.5 % topical cream APPLY TOPICALL Y TO FOOT RASH BID 08/15 completed Not Available Not Available Not Available zinc 50 mg tablet Take by oral route. 12/01 completed Not Available Not Available Not Available mupirocin 2 % topical ointment APPLY TOPICALL Y TO WOUND DAILY active Not Available Not Available No t Available furosemid e 20 mg tablet TAKE 1 TABLET BY MOUTH EVERY DAY 04/16 completed Not Available Not Available Not Available metoprolo l succinate ER 25 mg tablet,ex tended release 24 hr TAKE 1 TABLET BY MOUTH DAILY 2024 active Not Available Not Available Not Avai lable levofloxa mariah 500 mg tablet 10/11 completed Not Available Not Available Not Available levofloxa mariah 750 mg tablet TAKE 1 TABLET BY MOUTH DAILY FOR 10 DAYS 01/11 completed Not Available Not Available Not Available methylpre dnisolone 4 mg tablets in a dose pack FOLLOW PACKAGE DIRECTIO NS 06/17 completed Not Available Not Available Not Available ketoconaz ole 2 % topical cream APPLY TO THE AFFECTED AREA(S) BY TOPICAL ROUTE ONCE DAILY 08/15 completed Not Available Not Available Not Available fluocinon louann 0.05 % topical cream 10/17 completed Not Available Not Available Not Available nifedipin e ER 60 mg tablet,ex tended release TAKE 1 TABLET BY MOUTH TWICE DAILY 01/11 completed Not Available Not Available Not Available atropine 1 % eye drops INSTILL 1 DROP INTO LEFT EYE TWICE DAILY STARTING THE DAY AFTER SURGERY AND CONTINUI NG 01/11 completed Not Available Not Available Not Available losartan 100 mg tablet Take 1 tablet every day by oral route for 90 days. 10/17 completed pt stopped on his own Not Available Not Available Not Available isosorbid e dinitrate 5 mg tablet TAKE 1 TABLET BY MOUTH 3 TIMES DAILY 15 MINUTES PRIOR TO MEALS 01/11 completed Not Available Not Available Not Available doxycycli ne hyclate 100 mg tablet TAKE 1 TABLET TWICE A DAY 09/03 completed Not Available Not Available Not Available doxazosin 2 mg tablet Take 1 tablet every day by oral route. 10/17 completed Not Available Not Available Not Available amoxicill in 875 mg-potass ium clavulana te 125 mg tablet TAKE 1 TABLET BY MOUTH TWICE DAILY FOR 10 DAYS 03/08 completed Not Available Not Available Not Available Vitamin B-12 1,000 mcg tablet Take 1 tablet every day by oral route. active Not Available Not Available No t Available oxycodone 5 mg tablet TAKE 1 TABLET BY MOUTH EVERY 4 HOURS NEEDED FOR PAIN 09/03 completed Not Available Not Available Not Available ertapenem 1 gram solution for injection Take 500 mg every day by injectio n route as directed . 09/03 completed Not Available Not Available Not Available Pneumovax -23 25 mcg/0.5 mL injection syringe 04/09 completed Not Available Not Available Not Available Vitamin D3 25 mcg (1,000 unit) tablet Take 1 tablet every day by oral route. 09/03 completed Not Available Not Available Not Available Multivita min 50 Plus tablet Take 1 tablet every day by oral route. active Not Available Not Available No t Available metoprolo l tartrate 25 mg tablet 09/08 completed Not Available Not Available Not Available Boostrix Tdap 2.5 Lf unit-8 mcg-5 Lf/0.5 mL intramusc ular syringe 09/08 completed Not Available Not Available Not Available losartan 100 mg-hydroc hlorothia zide 12.5 mg tablet 09/08 completed Not Available Not Available Not Available Vitamin C 07/22 completed Not Available Not Available Not Available zinc 07/25 completed Not Available Not Available Not Available Fish Oil 1000 mg Take tablet once a day 09/03 completed Not Available Not Available Not Available Calcium 600 1 qd 03/24 completed Not Available Not Available Not Available flaxseed 1000 mg Take one tablet once a day 07/14 completed Not Available Not Available Not Available Vitamin D3 active Not Available Not Available Not Available Invanz 10/17 completed Not Available Not Available Not Available FreeStyle Lite Meter kit USE DIRECTED active Not Available Not Available No t Available Humalog KwikPen (U-100) Insulin 100 unit/mL subcutane ous sliding scale 01/11 completed Not Available Not Available Not Available Prevnar 13 (PF) 0.5 mL intramusc ular syringe 09/08 completed Not Available Not Available Not Available Probiotic 08/21 completed Not Available Not Available Not Available Vitamin B12 1 tablet qd 09/08 completed Not Available Not Available Not Available Fluad 65yr up(PF)45 mcg(15 mcgx3)/0. 5 mL intramusc ular syringe 09/08 completed Not Available Not Available Not Available Fluzone High-Dose (PF) 180 mcg/0.5 mL intramusc ular syringe 04/09 completed Not Available Not Available Not Available Fluad 65yr up(PF)45 mcg(15 mcgx3)/0. 5 mL intramusc ular syringe 06/17 completed Not Available Not Available Not Available FreeStyle Ana 2 Sensor kit USE DIRECTED . CHANGE EVERY 2 WEEKS active Not Available Not Available No t Available FreeStyle Ana 2 [place] USE DIRECTED active Not Available Not Available No t Available Fluad Quad (65yr up)(PF) 60 mcg (15 mcg x 4)/0.5mL IM syringe ADM 0.5ML IM UTD 01/31 completed Not Available Not Available Not Available Vitals Date Recorded Body height Heart rate Oxygen saturation Oxygen saturation in Arterial blood by Pulse oximetry Systolic blood pressure Diastolic blood pressure Provider Name and Address Organization Details Last Updated DateTime 5 190.5 cm 68 /min 97 % 97 % 152 mm[Hg] 84 mm[Hg] Jennifer Arnaldo [facility] 5 14:05:43 Social History Question Answer Notes LastModified by Organizat ion Details LastModified Time Tobacco Smoking Status Never Smoker Not Available [facility] 03/27/2020 03:36:24 What Was The Date Of Your Most Recent Tobacco Screening? 06/10/2024 Information not available 06/10/2024 Do You Or Have You Ever Used Any Other Forms Of Tobacco Or Nicotine? No Information not available 12/01/2022 Sex: Unknown Functional Status None recorded. Mental Status None recorded. Family History Nothing Reported. Medical History No medical history recorded. Immunizations Vaccine Type Date Status Note Provider Nam e and Address Organization Details Recorded Time zoster live 10/24/19 12 [facility]/2018 16:12:49 Influenza, split virus, quadrivalent, preservative 01/16/20 21 completed Jos Mirza DO [address] [place] [address], [address], [facility] 04/16/2021 09:59:56 COVID-19, mRNA, LNP-S, PF, 30 mcg/0.3 mL dose 02/21/20 [facility] 10:01:17 influenza, unspecified formulation 01/31/20 22 completed Jos Mirza DO [address] [place] [address], [address], [facility] 07/25/2022 13:39:10 Influenza, split virus, quadrivalent, preservative 01/19/20 19 [facility] 08:07:19 pneumococcal polysaccharide PPV23 12/15/19 18 completed Not Available [facility] 06/25/2019 02:14:52 Influenza, split virus, quadrivalent, preservative 02/07/20 20 completed Simi arthur [facility] 05/14/2020 13:36:29 zoster recombinant 05/29/19 21 completed Simi arthur [facility] 05/30/2020 13:55:39 zoster, unspecified formulation 08/14/19 21 completed Simi arthur [facility] 08/14/2020 14:30:47 COVID-19, mRNA, LNP-S, PF, 30 mcg/0.3 mL dose 07/20/19 21 completed Simi arthur [facility] 08/15/2020 13:37:20 COVID-19, mRNA, LNP-S, PF, 30 mcg/0.3 mL dose 07/05/19 21 completed Simi arthur [facility] 08/15/2020 13:37:30 Td(adult) unspecified formulation 09/27/19 17 [facility] 01/27/2018 08:24:33 Influenza, split virus, quadrivalent, preservative 01/30/20 18 completed Jos Mirza DO [address] [place] [address], [address], [facility] 01/30/2018 14:25:04 Past Encounters Encounter ID Performer Location Encounter Start Date Encounter Closed Date Diagnosis/Indication Diagnosis SNOMED-CT Code Diagnosis ICD10 Code Diagnosis Note [id number] MANUEL BILLS [facility] [address],[place] [address] 06/10/2024 13:52:26 06/10/2024 14:45:37 Right inguinal hernia 029703239 K40.90 will set up with US abdomen/gr oin to check on size and appearance Health Concerns Section Related Observation LastModified by Organization Detai ls LastModified Time None Recorded Concern Status LastModified by Organization Details LastModified Time None Recorded Payers Encounter Date Sequence Insurance Name Policy Number Policy Lambert Covered Member ID Lambert Member ID Guarantor Name 06/10/2024 1 [employer] MED[employer]VANTAGE PLAN (MEDICARE REPLACEMENT HMO) [id number] 1 Karthikeyan Lazo Sr. [id number] Karthikeyan Lazo Notes Date Note Type Note Provider Name a nd Address Organization Details Recorded Time 06/10/2024 text/html c/o abdominal hernia? the patient today is upset, his was just put on hospicehe has a good community with his family and people to talk to the patient reports that he has a hernia around the groin, right sideexam shows hernia, r inguinal, actively protruding, no signs of infection, strangulation or incarceration recommended US to check on itwill discuss options afterwards MANUEL BILLS [address] [place] [address], [place], [address], [place] [facility] 06/10/2024 14:32:23
--- OUTSIDE RECORDS SUMMARY | 2024-06-22 15:38 | XMS_ITS | Clinical Summary ---
Author Organization [facility] Address [address] [place] [address] Care Team Providers Care Balancer Scale Name Role Phone Jos Mirza DO Primary Care Provider [phone] Allergies Active Allergy Reactions Criticality Noted Date Comments Adhesive Tape Other (see comments) 09/23/2020 Latex Other (see comments) 09/23/2020 Other reaction(s): itchy Omeprazole 12/21/2023 Other Reaction(s): legs swelling, kidney issues Medications omega-3 (FISH OIL) 1000 MG capsule Take 1 capsule by mouth 1 (one) time each day Active cholecalciferol (VITAMIN D-3) 25 MCG (1000 UT) capsule Take 1 capsule by mouth 1 (one) time each day Active ascorbic acid (VITAMIN C) 500 MG tablet Take 1 tablet by mouth 1 (one) time each day Active FREESTYLE TEST STRIPS test strip TEST ONCE A DAY 08/08/2020 Active Calcium Carb-Cholecalci ferol (Calcium 600+D) 600-800 MG-UNIT tablet Take by mouth Active B-Complex capsule Take by mouth 1 (one) time each day Active metoprolol tartrate 25 MG tablet Take 25 mg by mouth 1 (one) time each day Active NIFEdipine XL (PROCARDIA XL) 90 MG 24 hr tablet Take 1 tablet (90 mg total) by mouth 1 (one) time each day Do not crush, chew, or split. 90 tablet 3 01/27/2023 Active cephalexin (KEFLEX) 500 MG capsule TAKE 1 CAPSULE BY MOUTH EVERY 8 HOURS FOR 10 DAYS 05/26/2023 Active clopidogrel (PLAVIX) 75 MG tablet Take 75 mg by mouth 1 (one) time each day Active Active Problems Problem Noted Date Diagnosed Date Metabolic acidosis 12/21/2023 Ulcer of toe 07/25/2022 05/21/2023 Regurgitation of food 04/28/2022 Chronic kidney disease, stage 4 (severe) 022 Hiatal hernia 05/13/2021 Stage 3b chronic kidney disease 09/27/2020 Renal osteodystrophy 09/27/2020 Chronic kidney disease due to benign hypertensio n 09/27/2020 Renal disorder due to type 2 diabetes mellitus 0 09/23/2020 Hypertensive renal disease 09/23/2020 Benign essential hypertension 09/23/2020 Chronic kidney disease stage 3 09/23/2020 Acute nontraumatic kidney injury 09/23/2020 Labile hypertension due to being in a clinical e nvironment 02/01/2020 Systolic murmur 07/29/2019 Osteomyelitis 07/27/2017 Neuropathy due to diabetes mellitus 07/27/2017 Inflamed seborrheic keratosis 07/27/2017 Gastroesophageal reflux disease 07/27/2017 Esophageal web / ring 07/27/2017 Type 2 diabetes mellitus 07/27/2017 Chronic kidney disease stage 4 07/27/2017 Open wound of lesser toe of right foot 7 Overview (09/23/2020): Last Assessment & Plan: The wound was cleaned and betadine was applied. The toe was wrapped with gauze fluff and Coban. He will change the dressing daily. We will see him back on Thursday to reassess. He will continue his antibiotics. He is encouraged to offload pressure from the toe as much as possible and to elevate when sitting. He understands this requires as much rest as possible to heal quickly. Hypertension 05/02/2017 Overview (09/23/2020): Last Assessment & Plan: He will recheck his blood pressure at home and call his primary care doctor if it remains elevated. Chronic renal failure 04/23/2017 Overview (09/23/2020): Last Assessment & Plan: He has had some fluctuation in his renal function and has a appointment scheduled with nephrology for the end of this month. Open wound of left foot 04/03/2017 Overview (09/23/2020): Last Assessment & Plan: He will continue Silvadene and Band-Aid to the foot. He will continue to monitor for changes of the wound. It will likely be very slow to heal, but remains clean without signs of infection. Resolved Problems Problem Noted Date Diagnosed Date Resolved Date Aspiration pneumonia 03/24/2023 05/21/2023 023 Achalasia 01/19/2023 05/21/2023 05/21/2023 Overview (05/21/2023): type 2 Aortic stenosis, non-rheumatic 12/01/2022 05/21/2023 05/21/2023 Bilateral lower leg edema 12/01/2022 05/21/2023 COVID-19 06/10/2022 05/21/2023 05/21/2023 Dysphagia 04/28/2022 05/21/2023 Diabetes mellitus 04/03/2017 05/21/2023 Immunizations Name Administration Dates Next Due Influenza, Quadrivalent, Wit h Preservative 01/15/2021,02/07/2020,01/18/2019,01/29 Influenza, Unspecified 01/30/2022,03/26/2021, Pfizer SARS-COV-2 02/20/2021,07/20/2020,07/05/19 21 Pneumococcal Polysaccharide 12/14/2017 Shingrix 05/29/2020 Td, Unspecified 09/26/2016 Zoster 08/13/2020,,05/29/2020,10/23 Family History Medical History Relation Comments Heart disease Father Cancer Mother Cancer Sibling Relation Status Comments Father Mother Sibling Social History Tobacco Use Types Packs/Day Years Used Date Smoking Tobacco: Never Alcohol Use Standard Drinks/Week Comments No 0 (1 standard drink = 0.6 oz pur e alcohol) Sex and Gender Information Value Date Recorded Sex Assigned at Not on file Legal Sex Male 4:51 PM EST Gender Identity Not on file Sexual Orientation Not on file Last Filed Vital Signs Vital Sign Reading Time Taken Comments Blood Pressure 128/62 10/24/2021 12:36 PM EDT Pulse 59 10/24/2021 12:36 PM EDT Temperature - - Respiratory Rate - - Oxygen Saturation 99% 06/13/2019 12:00 PM EST Inhaled Oxygen Concentration - - Weight 88.9 kg (196 lb) 12/21/2023 1:03 PM EDT Height 190.5 cm (6' 3 ) 12/21/2023 1:03 PM EDT Body Mass Index 24.5 12/21/2023 1:03 PM EDT Plan of Treatment Health Maintenance Due Date Last Done Comments Pneumococcal Vaccine: 65+ Years (2 of 2 - PCV) 12/14/2018 12/14/2017 Diabetes: Hemoglobin A1C 06/24/2020 Diabetes: Ophthalmology Exam 06/24/2020 Diabetes: Pedal Pulse Checked 06/24/2020 Diabetes: Sensory Foot Exam 06/24/2020 Diabetes: Visual Foot Exam 06/24/2020 Influenza Vaccine (#1) 2024 2, 03/26/2021, 01/15/2021, Additional history exists Hepatitis B Vaccine Aged Out No longe r eligible based on patient's age to complete this topic Insurance Care Teams Balancer Scale Relationship Specialty Start Date End Date Jos Mirza DO [address] [place] [address] PCP - General 06/04/20
--- OUTSIDE RECORDS SUMMARY | 2024-06-22 15:38 | XMS_ITS | Encounter Summary ---
Author Organization [facility] Address [address] [place] [address] Care Team Providers Care Silverware Buffer Name Role Phone Jos Mirza DO Primary Care Provider [phone] Reason for Visit * Reason Comments Follow-up Encounter Details Date Type Department Care Team ([facility] st Contact Info) Description 06/06/2024 8:45 AM EST Office Visit Orthopedic Surgery - [place] [address] [address] Shay Brito DPM [address] [address] Chronic osteomyelitis of hindfoot, left (CMS/HCC) (Primary Dx); Follow-up exam; Ulcer of toe of left foot, with fat layer exposed (CMS/HCC) Social History Tobacco Use Types Packs/Day Years [...] file Not on file Not on file documented as of this encounter Last Filed Vital Signs Vital Sign Reading Time Taken Comments Blood Pressure - - Pulse - - Temperature - - Respiratory Rate - - Oxygen Saturation - - Inhaled Oxygen Concentration - - Weight 87.1 kg (192 lb) 06/06/2024 9:00 AM EST Height 190.5 cm (6' 3 ) 06/06/2024 9:00 AM EST Body Mass Index 24 06/06/2024 9:00 AM EST documented in this encounter Progress Notes * Shay Brito DPM - 06/06/2024 8:45 AM EST S Patient is finished course of antibiotics and no residual redness swelling to get x-rays today's appointment notes the left foot forefoot wound is close his left great toe wound is still present he has not been off antibiotics for several months doing well at this time ROS: GENERAL: Pt denies nausea, fever, vomiting, chills, or shortness of breath. Pt in NAD. CARDIOLOGY: pt denies chest pain, palpitations LUNGS: pt denies shortness of breath MUSCULOSKELETAL: See HPI, otherwise no joint pain or swelling, back pain, or muscle pain. SKIN: see HPI, otherwise no lesions, rash or itching NEURO: No persistent headache, weakness or numbness The remainder of the review of systems is noncontributory PAST MEDICAL HISTORY: There is no problem list on file for this patient. Type II diabetic uncontrolled SOCIAL HISTORY: Social History Tobacco Use Smoking status: Never Smokeless tobacco: Never Substance Use Topics Alcohol use: Never ACTIVE MEDICATIONS: Outpatient Medications Marked as Taking for the 06/06/24 encounter (Office Visit) with Shay Patricia DPM Medication Sig Dispense Refill ascorbate calcium, vitamin C, 500 mg tablet Take by mouth. CALCIUM CARBONATE ORAL Take by mouth. cholecalciferol (VITAMIN D-3) 25 mcg (1,000 unit) tablet Vitamin D3 25 mcg (1,000 unit) tablet Take 1 tablet every day by oral route. cyanocobalamin (VITAMIN B-12) 1,000 mcg tablet Vitamin B-12 1,000 mcg tablet Take 1 tablet every day by oral route. LACTOBACILLUS ACIDOPHILUS ORAL Take by mouth. mupirocin (BACTROBAN) 2 % ointment Apply topically to wound dialy NIFEdipine CC (ADALAT CC) 90 mg 24 hr tablet Take 90 mg by mouth daily. omega-3 acid ethyl esters (LOVAZA) 1 gram capsule Take by mouth. oxyCODONE (ROXICODONE) 5 mg immediate release tablet Take one tablet every 4 hours as needed for pain silver sulfate/foam bandage (MEPILEX AG TOP) Apply 1 Applicator topically daily. Apply daily to feet wounds vitamin B complex (B COMPLEX-VITAMIN B12 ORAL) Take by mouth. ALLERGIES: Allergies Allergen Reactions Adhesive PHYSICAL EXAM: Visit Vitals Ht 1.905 m (75 ) Wt 87.1 kg (192 lb) BMI 24.00 kg/m?? Smoking Status Never BSA 2.16 m?? PODIATRIC EXAMINATION: GENERAL: Patient appears well nourished, with NAD. VASCULAR: Dorsalis pedis pulses are 2/4 bilaterally and Posterior tibial pulses are 2/4 bilaterally. Capillary filling time within normal limits the digits. No pallor on elevation or rubor on dependency. Positive hair growth. No varicosities. Denies rest pain or claudication pain. NEUROLOGICAL: Sharp/dull sensation , protective sensation 0/10 with 5.07 semmes rodger bilaterally, vibratory sensation with tuning fork intact to the tibial tuberosity. ORTHOPEDIC: Good muscle strength 5/5 of all flexors and extensors. Dorsi flexion of ankle ,10 degrees, plantar flexion WNL. No muscle atrophy. DERMATOLOGICAL:. ULCER: LOCATION left hallux, SIZE, 5 mm x 5 mm X 3mm, BASE, fibro-granular, RIM, hyperkeratotic, UNDERMINING, mild, TRACKING, Sub Q with Fat layer exposed,NECROTIC TISSUE, loosely-adherent yellow slough, DRAINAGE, serous, moderate, MALODOR, absent, CALOR, absent, ERYTHEMA, absent. BIOMECHANICS: Reviewed amputation right hammertoe contracture left IMPRESSION: 1. Chronic osteomyelitis of hindfoot, left (CMS/HCC) 2. Follow-up exam 3. Ulcer of toe of left foot, with fat layer exposed (CMS/HCC) PLAN: Radiographs reviewed degenerative changes noted no soft tissue crepitation noted at this point patient has been treated for chronic osteomyelitis and septic joint with no residual findings aside fromchronic degenerative changes most likely consistent with aggressive bony debridement is provided inthe office New x-rays ordered left with 3 views to monitor for changes over a period of time Gas formation is resolved cellulitis has resolved Follow-up in 1 month ULCER: LOCATION left hallux, SIZE, 5 mm x 5 mm X 3mm, BASE, fibro-granular, RIM, hyperkeratotic, UNDERMINING, mild, TRACKING, Sub Q with Fat layer exposed,NECROTIC TISSUE, loosely-adherent yellow slough, DRAINAGE, serous, moderate, MALODOR, absent, CALOR, absent, ERYTHEMA, absent. Open wound Open wound selective debridement of devitalized soft tissue, fibrin, epidermis, dermis, thru skin and subcutaneous tissue, first 20 sq cm or less, using sterile sharp dissection #15 scalpel blade. Pt. deferred anesthesia. . Devitalized tissue was not sent to pathology. Shay Brito DPM documented in this encounter Plan of Treatment Upcoming Encounters Date Type Department Care Team (Late st Contact Info) Description 06/29/2024 8:45 AM EST Office Visit Orthopedic Surgery - [place] [address] [address] Shay Brito DPM [address] [address] documented as of this encounter Results * XR Foot 3+ Views Left (06/06/2024 9:03 AM EST) Anatomical Region Laterality Modality Lower Extremities, Foot Left Computed Radiography Narrative 06/13/2024 12:37 PM EST Left foot 3 views Stabilizing changing's from chronic osteomyelitis of the second metatarsal resolved subcutaneous gas resolved stabilize changes no new acute erosions Shay Brito DPM IMG XR PROCEDURES documented in this encounter Visit Diagnoses Diagnosis Chronic osteomyelitis of hindfoot, left (CMS/HCC)- Primary Follow-up exam Unspecified follow-up examination Ulcer of toe of left foot, with fat layer exposed (CMS/HCC) documented in this encounter Care Teams Silverware Buffer Relationship Specialty Start Date End Date Jos Mirza DO [address] [facility] [address] [place], [place] PCP - General Internal Medicine 12/14/20 documented as of this encounter
--- OUTSIDE RECORDS SUMMARY | 2024-06-22 15:38 | XMS_ITS ---
Author Organization [facility] Address [address] [place] [address] Care Team Providers Care Separator Tender Name Role Phone Hermes MILIAN, Jos Primary Care Provider UnavailMic Howe Unavailable [phone] REASON FOR VISIT for sooner apt Encounters Encounter Location Date Provider Diagnosis [address] [address] 01/05/2024 Mic Mo Plan Of Treatment Next Appt Details Provider Name:Mic Mo , 07/22/2024 12:45:00 PM, [address] [place] [address], [phone], Progress Notes * Karthikeyan LAM ADOB: (83 yo M)Acc No.[id number]:01/05/2024 Progress Note Patient:?Karthikeyan LAM Provider:?Mic Mo DPM :1940???Age:83 Y???Sex:Male Lex e:01/05/2024 Address:[address] [place] [phone] Pcp:Jos Mirza MD Subjective: * Chief Complaints: * ???1. For sooner apt. * Medical History:? Objective: * Vitals:? Assessment: Plan: * Treatment: * Images: * The named appointment provid er may or may not be the originator of this progress note, and it is not deemed complete until electronically signed by the appointment provider. Sign off status: Pending * Provider:Jeffrey Mo DPM Date:?2023 Generated for Nighat neely/Duncan/Melo on:?06/22/2024 03:37 PM EST
--- OUTSIDE RECORDS SUMMARY | 2024-06-22 15:38 | XMS_ITS ---
Author Organization [facility] Address [address] [place] [address] Care Team Providers Care Shoelace Tipping Machine Operator Name Role Phone Jos Mirza Primary Care Provider Too Torres Jr REASON FOR VISIT update on being on medication Encounters Encounter Location Date Provider Diagnosis [facility] [address] [place] [phone] 01/20/2023 Too Casey Jr PLAN OF TREATMENT No Information
== END 2024-06-22 14:38 | disposition home or self-care (01) ==
PROVIDERS: PCP Internal Medicine; Visit Provider Internal Medicine Cardiovascular Disease
DX: I73.9 Peripheral vascular disease, unspecified (principal); I35.0 Nonrheumatic aortic (valve) stenosis; I10 Essential (primary) hypertension
CPT/HCPCS: 93010; 99214

== ENCOUNTER → 2024-06-22 13:28 | Outpatient (BNVA) | payer MEDICARE, SELFPAY | PROVIDERS: PCP Internal Medicine; Visit Provider Internal Medicine Cardiovascular Disease | DX: I73.9 Peripheral vascular disease, unspecified (principal); I35.0 Nonrheumatic aortic (valve) stenosis; I10 Essential (primary) hypertension | CPT/HCPCS: 93005; 99212 ==

== ENCOUNTER 2024-07-11 08:15 | Outpatient (REF) | payer MEDICARE, SELFPAY ==
--- NOTE | ~2024-07-11 | US_ITS ---
CLINICAL HISTORY: RT INGUINAL HERNIA US abdomen limited Comparison: None Findings: Directed soft tissue ultrasound of the right inguinal region demonstrates a small hernia measuring approximate 1.3 x 2.8 cm. Lesion is echogenic, suggesting herniated omentum. No obvious bowel hernia. No fluid collection. Impression: Small right inguinal hernia as above. This document has been electronically signed by: Jareth Aguilera MD on 07/11/2024 09:31:32
--- OUTSIDE RECORDS SUMMARY | 2024-07-11 08:18 | XMS_ITS ---
Author Organization [facility] Address [address] [place] [address] Care Team Providers Care Nuclear Control Operator Name Role Phone Jos Mirza Primary Care Provider Too Torres Jr REASON FOR VISIT cancel appt Encounters Encounter Location Date Provider Diagnosis [facility] [address] [place] [phone] 04/01/2023 Too Casey Jr PLAN OF TREATMENT No Information
--- OUTSIDE RECORDS SUMMARY | 2024-07-11 08:18 | XMS_ITS ---
Author Organization [facility] Address [address] [place] [address] Care Team Providers Care Paint Line Supervisor Name Role Phone Jos Mirza Primary Care Provider Too Torres Jr REASON FOR VISIT Patient presents today for regurtation Encounters Encounter Location Date Provider Diagnosis [facility] [address] [place] [address] 04/27/2023 Too Casey Jr PLAN OF TREATMENT No Information
--- OUTSIDE RECORDS SUMMARY | 2024-07-11 08:18 | XMS_ITS ---
Author Organization [facility] Address [address] [place] [address] Care Team Providers Care Reed Cleaner Name Role Phone Hermes MILIAN, Jos Primary Care Provider Mic Thibodeaux Unavailable [phone] Allergies Allergen (clinical drug ingredient) Drug/Non Drug [...] Ordered Date Performed Result Body Sit e 66216-GPZLDGI NAIL, 6 OR MORE 02/02/2024 N/A 84087-[id number] SKIN/TISSUE 02/02/2024 N/A 97806-[id number] SKIN LESIONS, 2 TO 4 02/02/2024 N/A Encounters Encounter Location Date Provider Diagnosis [facility] [place] [address] [place] [address] 02/02/2024 Mic Mo Type 2 diabetes mellitus [...] INSTRUCTIONS.pdf) Pending Test Test Name Order Date [id number] NAIL, 6 OR MORE 02/02/2024 [id number] SKIN/TISSUE 02/02/2024 [id number] SKIN LESIONS, 2 TO 4 02/02/20 24 Next Appt Details Follow Up: prn, Reason: Provider Name:Mic Mo , 07/22/2024 12:45:00 PM, [address] [place] [address], [phone], Procedure Notes * Category Sub-Category Detail Notes Debride Nail 6-10 Nail debridement Performance o f this nail treatment by a nonprofessional would put this patients foot and overall health at risk. Therefore, nail debridement was performed extensively to reduce/remove overall nail length, girth, thickness, subungual debris, and necrotic tissue, by manual and/or electrical means through the use of a nail nipper and/or dremel-type grinder machine knife setter, to a more viable healthy nail plate or bed tissue 6-10. Silver nitrate used for any petechial bleeding as necessary. Definitive antifungal treatment options have been reviewed and discussed with the patient. The patient chooses, no pharmaceutical tx - [address]97 Debride skin and subQ Open wound Physician [...] of the wound post debridement is stable (10290) Keratoma Treatment Parring or Cutting o f Benign Hyperkeratotic Lesion(s) (-56) 2-4 Lesions - The Benign hyperkeratotic lesions, as described above were pared, and/or cut utilizing a sterile 15 blade, tissue nippers, and/or dremel - 21706 Progress Notes * Karthikeyan LAM ADOB: 1 (83 yo M)Acc No.[id number]:02/02/2024 Progress Note Patient:?Karthikeyan Lam A Provider:?Mic Mo DPM :1940???Age:83 Y???Sex:Male Lex e:02/02/2024 Address:[address] [place], [place] [phone] Pcp:Jos Mirza MD Subjective: * Chief Complaints: [...] * Surgical History:?R eye surg latoya Carmona [facility] 2nd hammer toe 05/31/2021endoscopy 03/15,05/15Right 2nd toe for osteo 07/17/23torn retna cataract surgery amputation, right great toe - 08/18/23 * Hospitalization/Major Diagno stic Procedure:?[facility] toe [facility] 05/20/17[facility] for toe infection 01/15-01/21[facility] - infection [...] of left foot with fat layer exposed?Procedure: [id number] SKIN/TISSUE Notes: Patient Educated with: WOUND CARE [...] use of a nail nipper and/or dremel-type grinder machine knife setter, to a more viable healthy nail plate or bed tissue 6-10. Silver nitrate used for any petechial bleeding as necessary. Definitive antifungal treatment options have been reviewed and discussed with the patient. The patient chooses, no pharmaceutical tx - 58259.?Debride skin and subQ:?Open wound?Physician of record performed [...] of the wound post debridement is stable (24992).?Keratoma Treatment:?Parring or Cutting of Benign Hyperkeratotic Lesion(s)?(-56) 2-4 Lesions - The Benign hyperkeratotic lesions, as described above were pared, and/or cut utilizing a sterile 15 blade, tissue nippers, and/or dremel - 63516.? * Procedure Codes:?02190 DEBRI DE SKIN/TISSUE, Modifiers: XS 67860 DEBRIDE NAIL, 6 OR MORE, Modifiers: XS 88549 TRIM SKIN LESIONS, 2 TO 4, Modifiers: [...] Mo DPM Date:?2023 Generated for Nighat neely/Duncan/Melo on:?07/11/2024 08:17 AM EST History and Physical Notes * HPI [...]
--- OUTSIDE RECORDS SUMMARY | 2024-07-11 08:19 | XMS_ITS ---
Author Organization [facility] Address [address] [place] [address] Care Team Providers Care Interior Wirer Name Role Phone Hermes MILIAN, Jos Primary Care Provider Mic Thibodeaux Unavailable [phone] Allergies Allergen (clinical drug ingredient) Drug/Non Drug [...] Ulcer of toe of left foot (disorder) ([id number]) Skin ulcer of toe of left foot, limited to breakdown of skin (L97.521) Active confirmed Response to treatment improving Vital Signs Height 6 ft 3 in in 04/19/2024 Weight 195 lbs 04/19/2024 BMI 24.37 kg/m2 04/19/2024 Blood pressure systolic 120 mm Hg 04/19/20 24 Blood pressure diastolic 70 mm Hg 024 Procedures Procedure Date Ordered Date Performed Result Body Sit e 72071-UFGULKZ NAIL, 6 OR MORE 04/19/2024 N/A 47157- Debride <25 sq cm 04/19/2024 N/A 51874-IHQWMFK SKIN/TISSUE 04/19/2024 N/A 62707-QWCR SKIN LESIONS, 2 TO 4 04/19/2024 N/A Encounters Encounter Location Date Provider Diagnosis [facility] [address] [place] [address] 04/19/2024 Mic Mo Type 2 diabetes mellitus [...] INSTRUCTIONS.pdf) Pending Test Test Name Order Date 37000-MUXQCGD NAIL, 6 OR MORE 04/19/2024 11059- Debride <25 sq cm 04/19/2024 68743-TJQSDZR SKIN/TISSUE 04/19/2024 75302-YJMB SKIN LESIONS, 2 TO 4 04/19/20 24 Next Appt Details Follow Up: prn, Reason: Provider Name:Mic Mo , 07/22/2024 12:45:00 PM, [address] [place], [address], Procedure Notes * Category Sub-Category Detail Notes [...] use of a nail nipper and/or dremel-type precision lens grinder, to a more viable healthy nail [...] to maintain effectiveness in symptomatic relief - 13641 Debride skin< 25 sq cm Open wound [...] of the wound post debridement is stable (78145) Debride skin and subQ Open wound Physician [...] of the wound post debridement is stable (22210) Keratoma Treatment Parring or Cutting o f Benign Hyperkeratotic Lesion(s) (-56) 2-4 Lesions - The Benign hyperkeratotic lesions, ( 4) in total, locations as stated and described in exam, were pared, and/or cut utilizing a sterile 15 blade, tissue nippers, and/or power [employer] instrumentation - 26616 Progress Notes * Karthikeyan LAM ADOB: [birth year] (83 yo M)Acc No.[id number]:04/19/2024 Progress Note Patient:?Karthikeyan LAM A Provider:?Mic Mo DPM :1940???Age:83 Y???Sex:Male Lex e:04/19/2024 Address:[address] [place], [place] [id number] Pcp:Jos Mirza MD Subjective: * Chief Complaints: [...] and surgical debridement. Regular follow up with [facility] Wound Care clinic with Silver Alginate [...] * Surgical History:?R eye surg latoya Carmona [facility] 2nd hammer toe 05/31/2021endoscopy 03/15,05/15Right 2nd toe for osteo 07/17/23torn retna cataract surgery amputation, right great toe - 08/18/23 * Hospitalization/Major Diagno stic Procedure:?[facility] toe infections [facility]20[facility] 01/15-01[facility]21[facility] - infection [...] of left foot with fat layer exposed?Procedure: 19398-TSLXLMG SKIN/TISSUE Notes: Patient Educated with: WOUND CARE INSTRUCTIONS.pdf (WOUND CARE INSTRUCTIONS.pdf)?? 3.?Skin ulcer of toe of left foot, limited to breakdown of skin?Procedure: 83479- Debride <25 sq cm Notes: Patient Educated [...] use of a nail nipper and/or dremel-type precision lens grinder, to a more viable healthy nail [...] to maintain effectiveness in symptomatic relief - 61009.?Debride skin and subQ:?Open wound?Physician of record performed [...] of the wound post debridement is stable (68224).?Debride skin< 25 sq cm:?Open wound?NEUROPATHY: Physician of [...] of the wound post debridement is stable (98638).?Keratoma Treatment:?Parring or Cutting of Benign Hyperkeratotic Lesion(s)?(-56) 2-4 Lesions - The Benign hyperkeratotic lesions, ( 4) in total, locations as stated and described in exam, were pared, and/or cut utilizing a sterile 15 blade, tissue nippers, and/or power dremel instrumentation - 91742.? * Procedure Codes:?61715 DEBRI DE SKIN/TISSUE, Modifiers: XS 34838 ACTIVE WOUND CARE/20 CM OR <, Modifiers: XS 93504 DEBRIDE NAIL, 6 OR MORE, Modifiers: XS 54015 TRIM SKIN LESIONS, 2 TO 4, Modifiers: [...] adverse events including amputation, CONT Referral to [facility] due to pedal risk of limb/life.? * Follow Up:?prn * Images: * Sign off status: Completed true * Provider:?Mic Mo DPM Date:?2023 Generated for Nighat neely/Duncan/Melo on:?07/11/2024 08:19 AM EST History and Physical Notes * [...] and surgical debridement. Regular follow up with [facility] Wound Care clinic with Silver Alginate to wounds At Risk footcare Pt States Last PCP Visit: Date: 01/12/2024 [facility] [place] , Dennis, is not doing well [...]
--- OUTSIDE RECORDS SUMMARY | 2024-07-11 08:19 | XMS_ITS | Encounter Summary ---
Author Organization [facility] Address [address] [place] [address] Phone Care Team Providers Care Institutional Asset Manager Name Role Phone JuneJos laird DO Primary Care Provider [phone] Encounter Details Date Type Department Care Team (Late st Contact Info) Description 10/15/2022 Telephone [facility] [address] [place] [address] Mehnaz Lamb Social History Tobacco [...] on filedocumented in this encounter Care Teams Institutional Asset Manager Relationship Specialty Start Date End Date JuneJos laird DO [address] [facility] [id number] PCP - General 06/04/20 documented as of this encounter
--- OUTSIDE RECORDS SUMMARY | 2024-07-11 08:19 | XMS_ITS | Clinical Summary ---
Author Organization [address] [facility] Address [address] [place] [address] Phone Care Team Providers Care Technical Product Manager Name Role Phone Jos Mirza DO Primary Care Provider [phone] Allergies Active Allergy Reactions Criticality Noted Date Comments Adhesive 12/14/2020 Medications mupirocin (BACTROBAN) 2 % ointment Apply topically to wound dialy 4 Active silver sulfate/foam bandage (MEPILEX AG TOP) Apply 1 Applicator topically daily. Apply daily to feet wounds 4 Active oxyCODONE (ROXICODONE) 5 mg immediate release tablet Take one tablet every 4 hours as needed for pain 4 Active cyanocobalamin (VITAMIN B-12) 1,000 mcg tablet Vitamin B-12 1,000 mcg tablet Take 1 tablet every day by oral route. Active cholecalciferol (VITAMIN D-3) 25 mcg (1,000 unit) tablet Vitamin D3 25 mcg (1,000 unit) tablet Take 1 tablet every day by oral route. Active LACTOBACILLUS ACIDOPHILUS ORAL Take by mouth. Active NIFEdipine CC (ADALAT CC) 90 mg 24 hr tablet Take 90 mg by mouth daily. Active CALCIUM CARBONATE ORAL Take by mouth. Active omega-3 acid ethyl esters (LOVAZA) 1 gram capsule Take by mouth. Activ e vitamin B complex (B COMPLEX-VITAMIN B12 ORAL) Take by mouth. Activ e ascorbate calcium, vitamin C, 500 mg tablet Take by mouth. Active Encounters Date Type Department Care Team Description 06/29/2024 8:45 AM EST Office Visit Orthopedic Surgery [facility] [address] [facility] [address] [place] [address] Shay Brito DPM Chronic osteomyelitis of hindfoot, left (CMS/HCC) (Primary Dx); Follow-up exam; Ulcer of toe of right foot, limited to breakdown of skin (CMS/HCC); Ulcer of toe of left foot, with fat layer exposed (CMS/HCC) 06/06/2024 8:45 AM EST Office Visit Orthopedic Surgery [place] [address] [phone] Shay Brito DPM Chronic osteomyelitis of hindfoot, left (CMS/HCC) (Primary Dx); Follow-up exam; Ulcer of toe of left foot, with fat layer exposed (CMS/HCC) 05/09/2024 9:15 AM EST Office Visit Orthopedic Surgery [place] [address] [phone] Shay Brito DPM Chronic osteomyelitis of hindfoot, left (CMS/HCC) (Primary Dx); Foot pain, left; Ulcer of toe of left foot, with fat layer exposed (CMS/HCC); Ulcer of toe of left foot, with necrosis of bone (CMS/HCC) 04/25/2024 8:00 AM EST Office Visit Orthopedic Surgery [place] [address] [phone] Shay Brito DPM Chronic osteomyelitis of hindfoot, left (CMS/HCC) (Primary Dx); Left foot pain; Ulcer of toe of left foot, with necrosis of bone (CMS/HCC); Ulcer of toe of left foot, with fat layer exposed (CMS/HCC) 04/13/2024 9:15 AM EST Office Visit Orthopedic Surgery [facility] [address] [address] Shay Brito DPM Chronic osteomyelitis of hindfoot, left (CMS/HCC) (Primary Dx); Follow-up exam; Ulcer of toe of left foot, with necrosis of bone (CMS/HCC); Ulcer of toe of left foot, with fat layer exposed (CMS/HCC) from Last 3 Months Medical History [...] at Not on file Legal Sex Male 3:03 PM EST Gender Identity Not on file Sexual Orientation Not on file Obstetrics History Last Filed Vital Signs Vital Sign Reading Time Taken Comments Blood Pressure - - Pulse - - Temperature - - Respiratory Rate - - Oxygen Saturation - - Inhaled Oxygen Concentration - - Weight 87.1 kg (192 lb) 06/29/2024 8:34 AM EST Height 190.5 cm (6' 3 ) 06/29/2024 8:34 AM EST Body Mass Index 24 06/29/2024 8:34 AM EST Plan of Treatment Health Maintenance Due Date [...] or Tdap) 09/26/2026 09/26/2016, 09/26/2016 Pneumococcal Vaccine: 50+ Years Completed 12/14/2017, 09/26/2016, 02/27/2015 Zoster Vaccines [...] patient's age to complete this topic Meningococcal B Vacine Aged Out No lo nger eligible based on patient's age to complete [...] Routine 04/13/2024 9:39 AM EST Follow-up exam from Last 3 Months Results * XR Foot 3+ Views Left (06/06/2024 9:03 AM EST) Only the most recent of5 resultswithin the time period is included. Anatomical Region Laterality Modality Lower Extremities, Foot Left Computed Radiography Narrative 06/13/2024 12:37 PM EST Left foot 3 views Stabilizing changing's from chronic osteomyelitis of the second metatarsal resolved subcutaneous gas resolved stabilize changes no new acute erosions us Shay Brito DPM IMG XR PROCEDURES Final R esult from Last 3 Months Insurance [employer] Care Teams Technical Product Manager Relationship Specialty Start Date End Date Jos Mirza DO [address] [facility] [place], [place] PCP - General Internal Medicine 12/14/20
--- OUTSIDE RECORDS SUMMARY | 2024-07-11 08:19 | XMS_ITS | Data Portability ---
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) MDM MODERATE MUST MEET 2 OUT OF 3 ELEMENTS: PROBLEMS, DATA OR RISK ELEMENT 1: PROBLEMS ADDRESSED 1 OR MORE CHRONIC ILLNESS WITH EXACERBATION OR 2 OR MORE STABLE CHRONIC ILLNESSES OR 1 UNDIAGNOSED NEW PROBLEM OR 1 ACUTE ILLNESS W/SYMPTOMS OR 1 ACUTE COMPLICATED INJURY ELEMENT 2: DATA MUST MEET 1 OF 3 CATEGORIES CATEGORY 1: REVIEW OF PRIOR EXTERNAL NOTES, REVIEW OF RESULTS, ORDERING OF EACH TEST, ASSESSMENT REQUIRING INDEPENDENT HISTORIAN OR CATEGORY 2: INDEPENDENT INTERPRETATION OF TESTS BY ANOTHER PHYSICIAN OR SPECIALIST OR CATEGORY 3: DISCUSSION OF MGT OR TEST INTERPRETATION W/EXTERNAL PHYSICIAN OR SPECIALIST ELEMENT 3: RISK RISK OF COMPLICATIONS AND/OR MORBIDITY OR MORTALITY OF PATIENT MANAGEMENT PROVIDER MUST THOROUGHLY DOCUMENT EACH ELEMENT THAT IS COVERED Not available 12/11/2023 14:14:09 01/12/2024 01/12/2024 Patient presente d to office today for their Medicare Annual Wellness Visit. Education was provided on healthy nutrition, including a diet rich in fruits and vegetables, minimizing simple carbohydrates, salt, and saturated fats. Encouraged regular cardiovascular exercise such as walking at least 30 minutes daily, 5 times per week. Emphasized preventive health measures and educated pt on fall prevention and community-based lifestyle interventions to help reduce health risks and promote healthy living. Not available 01/12/2024 08:55:39 Plan of Treatment Reminders Order Date Submit Date Provider Last Modified By Organization Details Last Modified Time Details Appointments None recorded. Lab CMP, serum or plasma 2023 12 024 [email or web address] [facility], [address] [facility], [place], [address], 4 09:56:45 TSH + free T4, serum 2023 [facility], [address] [place] [address], [address], 4 08:38:19 CMP, serum or plasma 2023 [facility], [address] [place] [address], [address], 4 00:41:30 CBC w/ auto diff 2023 [facility], [address] [place] [address], [address], 4 11:33:00 iron + TIBC + ferritin, serum 2023 [facility], [address] [place] [address], [address], 4 11:33:00 vitamin B12 + folate, serum or blood 2023 [facility], [address] [place] [address], [address], 4 11:33:00 magnesium, serum or plasma 2023 [facility], [address] [place] [address], [address], 4 11:33:00 zinc, blood 2023 [facility], [address] [place] [address], [address], 4 08:51:15 amylase + lipase, serum 2023 [facility], [address] [place] [address], [address], 4 11:33:00 C-reactive protein, quantitati ve, serum or plasma 2023 [facility], [address] [place] [address], [address], 4 11:33:00 ESR (erythrocy te sedimentat ion rate), blood 2023 [facility], [address] [place] [address], [address], 4 11:33:00 lipid panel, blood 2023 024 [facility], [address] [place] [address], [address], 4 14:22:24 hemoglobin , gastrointe stinal, stool 2023 024 [facility], [address] [place] [address], [address], 4 16:46:26 CBC w/ auto diff 2023 024 [facility], [address] [place] [address], [address], 4 15:14:49 CMP, serum or plasma 2023 024 [facility], [address] [place] [address], [address], 4 17:23:42 HbA1c (hemoglobi n A1c), blood 2023 024 [facility], [address] [place] [address], [address], 4 11:08:43 HbA1c (hemoglobi n A1c), blood 2023 024 [facility], [address] [place] [address], [address], 4 11:08:43 Referral physical therapist referral 2023 024 [facility], [address] [place], [address], 4 08:57:37 Procedures None recorded. Surgeries None recorded. Imaging US, abdomen, limited 2024 025 [facility], [address] [place], [address], 5 08:39:02 XR, knee, 3 view 2023 024 [facility], [address] [place], [address], 08:51:58 Medication Orders None recorded. Patient TargetsNo targets recorded. Patient Instructions Encounter Date Encounter Id Patient Instructions Last Modified By Organization Details Last Modified Time 01/12/2024 [id number] advance care planning: care instructions Not available 01/12/2024 14:20:40 Discussed and explained advance directives such as standard forms to the {{patient caregiv er patient and caregiver}}. Face to face discussion lasted for a duration of ___ minutes. Not available 01/12/2024 08:55:39 Reason for Referral Physical Therapist Referral for Fall physical deconditioning Referring Physician: Connor Guillen, Internal Medicine, Encounter Date: 04/26/2024 Results Created Date Observation Date Name Description Value Unit Range Abnormal Flag Note LastModifiedBy Organization Detail LastModifiedTime 12/22/19 24 12/22/2023 XR, foot No observ ation record ed. [email or web address] Not Available 2023 16:41:03 02/17/20 24 02/17/2024 XR, foot, 3 or more view No observ ation record ed. Not Available 2023 10:54:34 02/25/20 24 02/25/2024 XR, foot No observ ation record ed. Not Available 2023 14:59:35 03/15/20 24 03/15/2024 XR, foot, 3 or more view No observ ation record ed. [email or web address] Not Available 03/16 08:34:58 03/23/20 24 03/23/2024 XR, foot, 3 or more view No observ ation record ed. [facility] ([facility]) [address] [place], [address], 03/25/2024 08:46:18 04/27/20 24 04/26/2024 XR, knee, 3 view No observ ation record ed. [email or web address] Not Available 04/27 09:28:02 05/20/20 24 04/14/2024 US, duple x, arter ial, lower extre mity No observ ation record ed. [facility] (Medical Records) [address] [place], [address], 05/20/2024 09:51:40 Result Notes None recorded. Problems Name Problem SNOMED Code Status Onset Date Resolution Date Notes Provider Name and Address Organization Details Recorded Time Gastroeso phageal reflux disease 884619581 Active 2017 Not Available [facility] 14:23:18 Esophagea l web / ring 490955397 Active 2017 Not Available [facility] 14:23:18 Hypertens esperanza disorder 01186918 Active 2017 white coat Not Available [facility] 14:23:18 Osteomyel itis 44712528 Active 2017 Not Available [facility] 14:23:18 Chronic kidney disease 046113553 Active 2017 Not Available [facility] 14:23:18 Inflamed seborrhei c keratosis 796492470 Active 2017 Not Available [facility] 14:23:18 Type 2 diabetes mellitus 77406373 Active 2017 Not Available [facility] 14:23:18 Neuropath y due to diabetes mellitus 686729660 Active 2017 Not Available [facility] 1 14:23:18 Systolic murmur 36226527 Active 2019 Not Available [facility] 1 14:23:18 Labile hypertens ion due to being in a clinical environme nt 042640585 Active 2019 Not Available [facility] 1 14:23:18 Hiatal hernia 85705689 Active 2020 small MANUEL BILLS [address] [place], [address], [facility] 1 10:33:42 COVID-19 606496253 Active 2022 MANUEL BILLS [address] [place] [address], [address], [facility] 3 12:31:00 Ulcer of toe 198921351 Active 2022 Jos Mirza DO [address] [place] [address], [address], [facility] 3 13:58:08 Aortic stenosis, non-rheum atic 388120199 Active 2022 Jos Mirza DO [address] [place] [address], [address], [facility] 3 10:51:05 Bilateral lower leg edema 109752762 Active 2022 Jos Mirza DO [address] [place] [address], [address], [facility] 3 10:51:39 Achalasia 87876921 Active 2022 type 2 MANUEL BILLS [address] [place] [address], [address], [facility] 3 12:43:54 Aspiratio n pneumonia 628371366 Active 2022 MANUEL BILLS [address] [place] [address], [address], [facility] 3 10:38:39 Ulcer of foot 93432987 Active 2023 Jos Mirza, DO [address] [place] [address], [address], [facility] 4 14:45:58 Cataract due to diabetes mellitus type 2 099073629 Active 2023 Jos Mirza, DO [address] [place] [address], [address], [facility] 4 14:50:18 Osteomyel itis of right foot 102770797013 9100 Active 2023 MANUEL BILLS [address] [place] [address], [address], [facility] 4 15:43:38 Chronic regurgita tion 72463604 Active 2023 Jos Mirza, DO [address] [place] [address], [address], [facility] 4 14:17:34 Osteomyel itis of left foot 083268778259 9107 Active 2023 Jos Mirza, DO [address] [place] [address], [address], [facility] 4 21:23:01 Abnormal weight loss 031870039 Active 2023 MANUEL BILLS [address] [place] [address], [address], [facility] 4 11:18:46 Essential hypertens ion 51408978 Active 2023 MANUEL BILLS [address] [place] [address], [address], [facility] 4 15:50:51 Fall Active 2023 MANUEL BILLS [address] [place] [address], [address], [facility] 4 09:44:26 Physical deconditi oning 398031969352 02 Active 2023 MANUEL BILLS [address] [place] [address], [address], [facility] 4 09:47:23 Pain of left knee joint 203584825526 107 Active 2023 MANUEL BILLS [address] [place] [address], [address], [facility] 4 09:51:19 Acute hyperkale desiree 2542315 Active 2023 MANUEL BILLS [address] [place] [address], [address], [facility] 4 09:55:08 Right inguinal hernia 530968766 Active 2024 MANUEL BILLS [address] [place] [address], [address], [facility] 5 14:20:52 Notes:Some problems listed i n Documents: #[id number], #[id number], #[id number], #[id number], #[id number] could not be added to this patient's chart. Please review these documents and add these problems to the patient's chart manually as needed. Problem Notes None recorded. Procedures Surgical History Date Name Laterality Status Provider Name and Address Organization Details Recorded Time 020 Arthrocentesis Major Joint/Bursa completed August MAURIZIO Parker [address] [place] [address], [address], [facility] 07/29/2019 11:49:15 020 Removal of foreign body in ear canal completed August MAURIZIO Parker [address] [place] [address], [address], [facility] 07/29/2019 11:50:25 Imaging Results Imaging Date Name Status LastModified by Organiz ation Details LastModified Time 12/22/2023 XR, foot completed [email or web address] Information no t available 12/22/2023 16:41:03 02/17/2024 XR, foot, 3 or more view completed Information not available 02/19/2024 10:54:34 02/25/2024 XR, foot completed Information no t available 02/26/2024 14:59:35 03/15/2024 XR, foot, 3 or more view completed [email or web address] Information not available 03/16/2024 08:34:58 03/23/2024 XR, foot, 3 or more view completed [facility] ([facility]) [address] [place], [address], 03/25/2024 08:46:18 04/26/2024 XR, knee, 3 view completed [email or web address] Information not available 04/27/2024 09:28:02 04/14/2024 US, duplex, arterial, lower extremity completed [facility] (Medical Records) [address] [place], [address], 05/20/2024 09:51:40 Procedure Notes None recorded. Medical Equipment None Reported. Allergies Allergen ID Allergen Name Allergen Category Reaction Reaction Severity Criticality Documentation Date Start Date Code Code System Note Provider Name and Address Organization Details Recorded Time 2511 adhesive environme nt,medica tion Not available Not available Not available 04/09/2018 13591 UNK Simi arthur [place] - [facility] 8 15:08:01 Medications Name Sig [...] e ER 90 mg tablet,ex tended release 1 tablet po qd 2024 active Not Available Not Available Not [...] day by oral route for 90 days. active Not Available Not Available No t Available FreeStyle Test strips USE TO TEST [...] Available No t Available FreeStyle Ana 2 Parker USE DIRECTED active Not Available Not Available No t Available Fluad Quad (65yr up)(PF) 60 mcg (15 mcg x 4)/0.5mL IM syringe ADM 0.5ML IM UTD 01/31 completed Not Available Not Available Not Available Vitals Date Recorded Body height Body mass index (BMI) Body weight Heart rate Oxygen saturation Oxygen saturation in Arterial blood by Pulse oximetry Systolic blood pressure Diastolic blood pressure Provider Name and Address Organization Details Last Updated DateTime 4 189.87 cm 24.5 kg/m2 70794.5 1 g 65 /min 98 % 98 % 134 mm[Hg] 78 mm[Hg] Jennifer Mcintosh MA [facility] 4 13:47:00 Date Recorded Body height Body mass index (BMI) Body weight Heart rate Oxygen saturation Oxygen saturation in Arterial blood by Pulse oximetry Systolic blood pressure Diastolic blood pressure Provider Name and Address Organization Details Last Updated DateTime 4 190.5 cm 24.4 kg/m2 79846.5 1 g 65 /min 98 % 98 % 140 mm[Hg] 60 mm[Hg] Tu Zamudio MA [facility] 4 14:04:24 Date Recorded Body height Body mass index (BMI) Body weight Heart rate Oxygen saturation Oxygen saturation in Arterial blood by Pulse oximetry Systolic blood pressure Diastolic blood pressure Provider Name and Address Organization Details Last Updated DateTime 4 190.5 cm 23.2 kg/m2 69954.1 8 g 87 /min 97 % 97 % 166 mm[Hg] 84 mm[Hg] Jennifer Mcintosh MA [facility] 4 11:03:18 Date Recorded Body height Body mass index (BMI) Body weight Heart rate Oxygen saturation Oxygen saturation in Arterial blood by Pulse oximetry Systolic blood pressure Diastolic blood pressure Provider Name and Address Organization Details Last Updated DateTime 4 190.5 cm 22.9 kg/m2 79707.4 g 69 /min 99 % 99 % 142 mm[Hg] 68 mm[Hg] Nakitahiral Callemond [facility] 4 09:36:14 Date Recorded Body height Heart rate Oxygen saturation Oxygen saturation in Arterial blood by Pulse oximetry Systolic blood pressure Diastolic blood pressure Provider Name and Address Organization Details Last Updated DateTime 5 190.5 cm 68 /min 97 % 97 % 152 mm[Hg] 84 mm[Hg] Jennifer Mcintosh [facility] 5 14:05:43 Social History Question Answer Notes LastModified by Organizat ion Details LastModified Time Tobacco Smoking Status Never Smoker Not Available [facility] 03/27/2020 03:36:24 What Was The Date Of [...] Time zoster live 10/24/19 12 completed Nai arthur [facility] 02/03/2018 16:12:49 Influenza, split virus, quadrivalent, preservative 01/16/20 21 completed Jos Mirza DO [address] [place] [address], [address], [facility] 04/16/2021 09:59:56 COVID-19, mRNA, LNP-S, PF, 30 mcg/0.3 mL dose 02/21/20 21 completed Emily arthur [facility] 05/13/2021 10:01:17 influenza, unspecified formulation 01/31/20 22 completed Jos Mirza DO [address] [place], [address], [facility] 07/25/2022 13:39:10 Influenza, split virus, quadrivalent, preservative 01/19/20 [facility] 08:07:19 pneumococcal polysaccharide PPV23 12/15/19 18 completed Not Available [facility] 06/25/2019 02:14:52 Influenza, split virus, quadrivalent, preservative 02/07/20 20 [facility] 05/14/2020 13:36:29 zoster recombinant 05/29/19 21 completed Simi arthur [facility] 05/30/2020 13:55:39 zoster, unspecified formulation 08/14/19 21 [facility] 08/14/2020 14:30:47 COVID-19, mRNA, LNP-S, PF, 30 mcg/0.3 mL dose 07/20/19 21 completed Simi arthur [facility] 08/15/2020 13:37:20 COVID-19, mRNA, LNP-S, PF, 30 mcg/0.3 mL dose 07/05/19 21 [facility]2020 13:37:30 Td(adult) unspecified formulation 09/27/19 17 [facility] 01/27/2018 08:24:33 Influenza, split virus, quadrivalent, preservative 01/30/20 18 completed Jos Mirza DO [address] [place] [address], [place], [address], [facility] 01/30/2018 14:25:04 Past Encounters Encounter ID Performer Location Encounter Start Date Encounter Closed Date Diagnosis/Indication Diagnosis SNOMED-CT Code Diagnosis ICD10 Code Diagnosis Note [id number] Jos Mirza DO [facility] [address] [facility],[place] [address] 09/08/2017 10:25:07 09/08/2017 12:21:26 Adult health examination 155242593 Z00.01 cont to follow up with wound care drs and his bp dr Active or passive immunization 626239426 Z23 [id number] August MAURIZIO Parker [facility] [address] [facility], [place] [address] 12/09/2017 15:14:15 12/09/2017 16:34:28 Cellulitis of lower limb 643646630 L03.119 due to concern for recurrent cellulitis and acute skin changes recommend starting abx Diabetic foot ulcer 3710 34323 E11.40 Type 2 chip betes mellitus 25714425 E11.65 Hypertensive disorder 38 349697 I10 123/63 this morning at home white coat [id number] Jos Mirza [facility] [address] [facility], [place] [address] 12/11/2017 11:41:34 12/11/2017 12:46:01 Type 2 diabetes mellitus 30298175 E11.9 a1c is 6.5 and pt is doin g well Hypertensive disorder 38 176278 I10 stable Cellulitis of foot 78514 6007 L03.119 increase cephalexin to qid and follow closely will receck next week [id number] Jos Mirza [facility] [address] [facility], [facility] [address] 12/15/2017 13:23:34 12/15/2017 16:09:58 Cellulitis of toe 33410395 L03.032 clearing continue with abx for next 5 days and finish all [id number] Mariah Carias NP, S [facility] [address] [facility], ite [facility] [place] [address] 01/18/2018 10:28:06 01/18/2018 13:31:11 Cellulitis of toe 26317007 L03.032 Neuropathy due to diabetes mellitus 651759512 E11.[address] Berna dubose Hypertensive disorder 38 502500 I10 follow Chronic ki dney disease 546678704 N18.9 stable, creat 2, no micro albumin [id number] Mariah Carias NP, S [facility] [address] [facility], [facility] [place] [address] 01/27/2018 11:10:50 01/27/2018 16:23:20 Fatigue 24601641 R53.83 Infection of toe 0610962 06 L08.9 f/u wound care Chronic ki dney disease 738733487 N18.9 creatinine up to 2.31, to recheck next Thursday Skin react ion irritant 838183489 R23.8 avoid cortisone [id number] Mariah Carias NP, S [facility] [address] [facility] [place] [address] 02/05/2018 11:37:03 02/05/2018 12:16:23 Neuropathy due to diabetes mellitus 598298868 E11.40 Hypertensive disorder 38 347511 I10 follow Chronic ki dney disease 237203771 N18.9 creat improved to 1.8 [id number] Mariah Carias NP, [facility] [address] [facility] [address] [address] 03/31/2018 15:17:57 03/31/2018 16:20:54 Painful rectal bleeding 610249201 K62.5 [id number] Jos Mirza [facility] [address] [facility] [address] [address] 04/09/2018 15:02:16 04/09/2018 16:26:21 Adult health examination 409317467 Z00.01 cont to follow up with wound care drs and his bp dr Screening for cardiovascular system disease 733724660 Z13.6 no symptoms noted needs cholestero l ordered Screening for malignant neoplasm of colon 085489474 Z12.11 had 2 yrs ago Hypertensive disorder 38 360292 I10 stable overall at home is in 110's over 60's Type 2 chip betes mellitus 28488366 E11.9 a1c is 6.1 and pt is doing well Osteomyelitis 66960449 M 86.9 ongoing treatment of left foot and is having leaking daily so hole is still present has a silver alginate dressing applied daily this has been ongoing for 1 year will prob need more hyperbaric treatment [id number] Jos Mirza [facility] [address] [facility] [address] [address] 07/14/2018 09:31:53 07/14/2018 10:06:22 Osteomyelitis 55612584 M86.9 ongoing treatment of left foot and is having leaking daily so hole is still present has a silver alginate dressing applied daily but this was stopped as it was too occlusive this has been ongoing for 1 year will prob need more hyperbaric treatment Cellulitis of lower leg 259551770 L03.119 is resolving on levaquin will finish culture not taken has appearance of completely resolved cellulitis after only 3 days of levaquin Type 2 chip betes mellitus 47340604 E11.9 a1c is 6.3 and pt is doing well Chronic ki dney disease 775697393 N18.9 is actually stable with his creat 1.88 Hypertensive disorder 38 020413 I10 stable overall now on losartan 100 mg at home is in 110's over 60's Jos Mirza DO [facility] [address] [facility],[place] [employer] [facility] [place] [address] 10/11/2018 14:17:14 10/11/2018 14:57:47 Type 2 diabetes mellitus 48585751 E11.9 a1c is 6.5 and pt is doing well Hypertensive disorder 38 415367 I10 stable overall now on losartan 100 mg at home is in 110's over 60's Neuropathy due to diabetes mellitus 355990167 E11.40 cont with keeping his sugar controlled Chronic ki dney disease 643124082 N18.9 creat has increased to 2.8 and is worrisome and will need to continue follow with Dr Duran Edema of l ower extremity 713408635 R60.0 possibilit y of nifedipine being the cause [id number] Jos Mirza DO [facility] [address] [facility],[place] [employer] [facility] [place] [address] 02/08/2019 13:28:02 02/08/2019 14:30:29 Hypertensive disorder 61836371 I10 stable overall now on losartan 100 mg at home is in 110's over 60's Type 2 chip betes mellitus 66778356 E11.9 a1c is 6.4 was 6.5 and pt is doing well Stricture of esophagus 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 please send prior notes from [place] ([facility] [place]) [id number] Jos Mirza DO [facility] [address] [facility],[place] [address] 06/17/2019 15:04:08 06/17/2019 16:09:39 Chronic kidney disease 058858231 N18.9 Awaiting documentat ion from Neph Was referred to Heme/Onc likely for anemia GFR stable at 28 Neuropathy due to diabetes mellitus 279295696 E11.40 cont with keeping his sugar controlled Hypertensive disorder 38 507731 I10 BP well controlled Started doxazosin 2 mg by nephrology Type 2 chip betes mellitus 61842783 E11.9 A1C is 6.6 up from 6.4 stable [id number] MAURIZIO Rutledge [facility] [address] [facility],[place] [address] 07/29/2019 10:52:25 07/29/2019 12:10:52 Bursitis of olecranon of left elbow 5640696592 92470 M70.22 successful olecranon bursa drainage f/u if fluid returns Foreign janeth dy in left ear 2320199978 4279471 T16.2XXA ear tube removed from canal without complicati on Foreign janeth dy in right ear [id number] T16.1XXA ear tube removed from canal without complicati on Hypertensive disorder 38 622696 I10 stable Systolic murmur 75119314 R01.1 known [id number] Jos Mirza DO [facility] [address] [facility],[place] [address] 10/18/2019 15:12:37 10/18/2019 15:51:40 Type 2 diabetes mellitus 61040799 E11.9 A1C is 6.6 up from 6.4 stable Osteomyelitis 70424187 M 86.9 ongoing treatment of left foot and is having leaking daily so hole is still present has a silver alginate dressing applied daily but this was stopped as it was too occlusive this has been ongoing for 1 year had some more work done on his 3rd left toe has been starte don his abx Hypertensive disorder 38 532135 I10 BP well controlled Started doxazosin 2 mg by nephrology [address] [facility] [address] [facility],[place] [address] 11/16/2019 14:45:53 11/16/2019 15:29:21 Cellulitis 172069859 L03.90 resolving well healing will finish rest of 9 days of Keflex Chronic ki dney disease 023830001 N18.9 stable Neuropathy due to diabetes mellitus 041944167 E11.40 stable Hypertensive disorder 38 120092 I10 BP elevated today, mostly likely due to infection, is trending down will continue to monitor Osteomyelitis 57163538 M 86.9 discussing with specialist Type 2 chip betes mellitus 34155131 E11.21 stable [id number] Jos Mirza DO [facility] [address] [facility],[place] [address] 02/01/2020 13:26:40 02/01/2020 14:04:23 Type 2 diabetes mellitus 56017285 E11.9 A1C is 6.6 again as it was last time and before up from 6.4 stable Hypertensive disorder 38 169108 I10 BP well controlled Started doxazosin 2 mg by nephrology Neuropathy due to diabetes mellitus 895477962 E11.40 cont with keeping his sugar controlled 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 4142102 K22.2 doing well with this he is asymptomat ic Gastroesop hageal reflux disease 986463015 K21.9 quiet and doing well Chronic ki dney disease 907976451 N18.9 Awaiting documentat ion from Neph Was referred to Heme/Onc likely for anemia GFR stable at 28 Osteomyelitis 67520898 M 86.9 ongoing treatment of left foot and is having leaking daily so hole is still present has a silver alginate dressing applied daily but this was stopped as it was too occlusive this has been ongoing for 1 year had some more work done on his 3rd left toe has been starte don his abx Iron deficiency 73926972 E61.1 noted by his other specialist told to add iron foodstuff 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 375912915 I15.8 home bps are excellent [id number] MANUEL BILLS [facility] [address] [facility],[place] [address] 04/16/2020 14:36:49 04/16/2020 15:22:24 Hypertensive disorder 20946387 I10 BP elevated today, mostly likely due to infection, is trending down will continue to monitor Type 2 chip betes mellitus 00142526 E11.21 stable Pruritic disorder 111665 002 L29.9 trial of steriod and antihistam ine Diabetic foot 131387618 E11.59 will try antifungal Ingrowing nail of toe of right foot [id number] 0124227 L60.0 doing well [id number] MANUEL BILLS [facility] [address] [facility],[place] [address] 04/24/2020 13:52:46 04/24/2020 14:36:15 Ingrowing nail of toe of right foot [id number] 1551101 L60.0 fu of his ingrown toe doing well on ketoconazo le Edema of l ower extremity 135919273 R60.0 will start on lasix and check BMP for CKD will also check TSH to see if related to swelling and itching will fu with possible vascular referral Chronic ki dney disease 041093920 N18.9 stable Cellulitis 058240112 L03 .90 r/o osteomyeli tis [id number] Jos Mirza DO [facility] [address] [facility],[place] [address] 05/14/2020 13:27:57 05/14/2020 14:27:06 Hypertensive disorder 14724350 I10 BP well controlled Started doxazosin 2 mg by nephrology Type 2 chip betes mellitus 46786396 E11.9 A1C is 6.7 and was 6.6 again as it was last time and before up from 6.4 stable Chronic ki dney disease 034803415 N18.9 Awaiting documentat ion from Neph Was referred to Heme/Onc likely for anemia of chronic ds GFR stable at 28 still has creat elevated followed by dr duran Osteomyelitis 90475676 M 86.9 ongoing treatment of left foot and is having noted improvemen t and near resolution Neuropathy due to diabetes mellitus 759119048 E11.40 cont with keeping his sugar controlled he does have signif loss of sensation bilat Edema of lower leg 16501 7004 R60.0 relates that he is much improved and is going to use the furosemide on a prn 88001 Jos Mirza DO [facility] [address] [facility],[place] [address] 08/15/2020 13:32:58 08/15/2020 14:28:58 Chronic kidney disease 430479710 N18.9 Awaiting documentat ion from Neph which has still not come dr duran at Was referred to Heme/Onc likely for anemia of chronic ds GFR stable at 28 still has creat elevated at 2.1 but is slowly getting better followed by dr duran Type 2 chip betes mellitus 55688276 E11.9 A1C is 6.5 was 6.7 and was 6.6 again as it was last time and before up from 6.4 stable Hypertensive disorder 38 421998 I10 BP well controlled HE WILL RESCHEDULE APPT IN 1 MONTH AND BRING IN HOME READINGS TO GET SCANNED has been elevated at dr sun bp 133 / 63 he has signif white coat hypertensi on nifedipine by nephrology 94085 Jos Mirza DO [facility] [address] [facility] [address],[place] [employer] [place] [facility] [place] [address] 09/21/2020 14:24:25 09/21/2020 15:24:14 Hypertensive disorder 20705460 I10 BP well controlled HE WILL RESCHEDULE APPT IN 1 MONTH AND BRING IN HOME READINGS TO GET SCANNED has been elevated at dr sun bp 133 / 63 he has signif white coat hypertensi on nifedipine by nephrology Type 2 chip betes mellitus 42471964 E11.9 A1C is 6.5 was 6.7 and was 6.6 again as it was last time and before up from 6.4 stable Chronic ki dney disease 183660363 N18.9 Awaiting documentat ion from Neph which has still not come dr duran at Was referred to Heme/Onc likely for anemia of chronic ds GFR stable at 28 still has creat elevated at 1.99 but is slowly getting better followed by dr duran 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 140149201 I15.8 home bps are excellent [id number] MANUEL BILLS [facility] [address] [facility] [address],[place] [employer] [place] [facility] [address] 12/17/2020 14:52:24 12/17/2020 15:31:42 Hypertensive disorder 03907207 I10 BP elevated today, mostly likely due to infection, is trending down will continue to monitor elevated in doctor's offices usually fine at home Osteomyelitis 48526904 M 86.9 discussing with specialist has fu in 4 weeks Neuropathy due to diabetes mellitus 706380337 E11.40 stable Type 2 chip betes mellitus 53124585 E11.21 stable 08622 Jos Mirza [facility] [address] [facility], [place] [address] 01/16/2021 13:51:42 01/16/2021 15:12:45 Type 2 diabetes mellitus 47608387 E11.9 A1C is still 6.5 and prior 6.5 was 6.7 and was 6.6 again as it was last time and before up from 6.4 stable Hypertensive disorder 38 354544 I10 BP well controlled HE WILL RESCHEDULE APPT IN 1 MONTH AND BRING IN HOME READINGS TO GET SCANNED has been elevated at dr dino bp 133 / 63 he has signif white coat hypertensi on nifedipine by nephrology Chronic ki dney disease 965516290 N18.9 Awaiting documentat ion from Neph which has still not come dr duran at Was referred to Heme/Onc likely for anemia of chronic ds GFR stable at 28 still has creat elevated at 1.9 but is slowly getting better followed by dr duran Neuropathy due to diabetes mellitus 008025632 E11.40 cont with keeping his sugar controlled he does have signif loss of sensation bilat Osteomyelitis 53386060 M 86.9 ongoing treatment of left foot and is having noted improvemen t and near resolution [id number] Jos Mirza [facility] [address] [facility],[place] [address] 04/16/2021 09:51:13 04/16/2021 15:08:26 Active or passive immunization 799452994 Z23 utd Adult heal th examination 179098630 Z00.00 cont to follow up with wound care drs and his bp jesse to have follow up with outside plant engineer for her hammertoe [id number] MANUEL BILLS [facility] [address] [facility], [place] [address] 05/13/2021 09:53:26 05/13/2021 13:58:59 Hypertensive disorder 81591715 I10 stable at home, no medical interventi on needed 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 583721657 I15.8 stable, has high BP in clinical settings, good at home Pre-surger y evaluation 945317274 Z01.818 The patient was seen in the office today for pre-op evaluation . All medical conditions on patient's problem list were addressed and are currently stable, no interventi on needed at this time. Based on history and physical performed, the patient is cleared for surgery. Chronic ki dney disease 526479614 N18.9 stablerece nt visit with nephrologi st cleared patient [id number] MANUEL BILLS [facility] [address] [facility] [address],[place] [address] 07/22/2021 13:43:25 07/23/2021 15:43:08 Clostridioides difficile infection 520979056 A04.72 resolved Hypertensive disorder 38 760367 I10 stable at home, no medical interventi on needed [id number] Jos Mirza DO [facility] [address] [facility] [address],[place] [address] 08/21/2021 09:25:46 08/21/2021 13:55:05 Hypertensive disorder 10460798 I10 BP well controlled bp has been goodbp is now running 110/60s nifedipine by nephrology Neuropathy due to diabetes mellitus 400307155 E11.40 cont with keeping his sugar controlled he does have signif loss of sensation bilat Osteomyelitis 81171001 M 86.9 now resolved doing wellsome discomfort around the callous areahas been scraping the callous himself Type 2 chip betes mellitus 02489238 E11.9 A1C is still 6.6 and wasw 6.5 and prior 6.5 was 6.7 and was 6.6 again as it was last time and before up from 6.4 stable [id number] MANUEL BILLS [facility] [address] [facility] [address],[place] [address] 06/17/2022 11:49:05 06/18/2022 09:29:55 COVID-19 293650347 U07.1 will adjust steriod dennis to prednisone start cough suppressan tthe patient will also increase food intake [id number] Jos Mirza DO [facility] [address] [facility] [address],[place] [address] 07/25/2022 13:22:11 07/25/2022 16:19:09 Active or passive immunization 269690137 Z23 utd Adult heal th examination 457512039 Z00.00 cont to follow up with wound care drs and his bp jesse to have follow up with outside plant engineer for her hammertoe Neuropathy due to diabetes mellitus 085529925 E11.40 cont with keeping his sugar controlled he does have signif loss of sensation bilat Osteomyelitis 17058898 M 86.9 now resolved doing wellsome discomfort around the callous areahas been scraping the callous himself Type 2 chip betes mellitus 05568835 E11.9 A1C is now up to 7.5 but he just lost 20lbs so he will be lower next 6.6 and was 6.5 and prior 6.5 was 6.7 and was 6.6 again as it was last time and before up from 6.4 stable Advance care planning 71 2833410 Z71.89 utd Hypertensive disorder 38 867967 I10 BP well controlled bp has been goodbp is now running 110/60s nifedipine by nephrology Gastroesop hageal reflux disease 295118492 K21.9 quiet and doing well Ulcer of toe 103173617 L 97.509 will need insert and sneaker [id number] Jos Mirza DO [facility] [address] [facility],[place] [address] 12/01/2022 10:22:12 12/01/2022 11:29:49 Type 2 diabetes mellitus 72429257 E11.9 A1C is now at 6.7 but he lost 20lbs 6.6 and was 6.5 and prior 6.5 was 6.7 and was 6.6 again as it was last time and before up from 6.4 stable Hypertensive disorder 38 252100 I10 BP well controlled bp has been goodbp is now running 110/60s nifedipine by nephrology Aortic jaime nosis, non-rheumatic 214815986 I35.0 has an upcoming echo Bilateral lower leg edema 266874612 R60.0 this is prob from the nifedipine [id number] MANUEL BILLS [facility] [address] [facility],[place] [address] 03/24/2023 09:38:11 03/24/2023 13:57:28 Essential hypertension 16621671 I10 medication adjusted in chartneeds new scripts for the metoprolol and nifedipine Achalasia 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 K22.0 having more issues with itno effect with his recent dilation Type 2 chip betes mellitus 79539583 E11.9 stableagre ed to endo consult for diabetic education Aspiration pneumonia 422 477921 J69.0 will set up with lab work [id number] Jos Mirza DO [facility] [address] [facility],[place] [address] 08/14/2023 14:01:17 08/14/2023 15:09:45 Essential hypertension 01228821 I10 has been stable no issues Hypertensive disorder 38 459541 I10 BP well controlled bp has been goodbp is now running 110/60s nifedipine by nephrology Neuropathy due to diabetes mellitus 280059858 E11.40 cont with keeping his sugar controlled he does have signif loss of sensation bilat a1c is 6.1 Type 2 chip betes mellitus 76633742 E11.9 A1C is now at 6.1 was 6.7 (but he lost 30lbs ) 6.6 and was 6.5 and prior 6.5 was 6.7 and was 6.6 again as it was last time and before up from 6.4 stable Aspiration pneumonia 422 378835 J69.0 quiet and reolved Chronic ki dney disease 314704615 N18.9 Awaiting documentat ion from Neph which has still not come dr duran at Was referred to Heme/Onc likely for anemia of chronic ds GFR stable at 28 still has creat elevated at 1.9 but is slowly getting better followed by dr duran Ulcer of foot 77199053 L 97.509 followed by wound nurse and podiatryco nt to use doxycyclin e Cataract d ue to diabetes mellitus type 2 822469191 E11.36 we will give him a pre op today [id number] MANUEL BILLS [facility] [address] [facility],[place] [address] 09/04/2023 15:01:17 09/04/2023 16:06:40 Amputated big toe 286442329 Z89.411 stable Osteomyeli tis of right foot 9604865716 525724 M86.011 stable [id number] Jos Mirza [facility] [address] [facility],[place] [address] 12/11/2023 13:35:43 12/11/2023 15:05:49 Depression screening 881520792 Z13.31 SCREENING NEGATIVE Hypertensive disorder 38 413512 I10 BP well controlled bp has been goodbp is now running 110/60s nifedipine by nephrology Type 2 chip betes mellitus 77580578 E11.9 A1C is now at 6.1 was 6.7 (but he lost 30lbs ) 6.6 and was 6.5 and prior 6.5 was 6.7 and was 6.6 again as it was last time and before up from 6.4 stable Neuropathy due to diabetes mellitus 092114892 E11.40 cont with keeping his sugar controlled he does have signif loss of sensation bilat a1c is 6.1 Aortic jaime nosis, non-rheumatic 886933766 I35.0 has an upcoming echo [id number] Jos Mirza [facility] [address] [facility],[place] [address] 01/12/2024 13:52:17 01/12/2024 14:49:17 Adult health examination 225181962 Z00.00 cont to follow up with wound care drs and his bp jesse to have follow up with outside plant engineer for her hammertoe Screening for cardiovascular system disease 043130853 Z13.6 no symptoms noted needs cholestero l ordered Screening for malignant neoplasm of colon 210253715 Z12.11 had 2 yrs ago Depression screening 171 127392 Z13.31 SCREENING NEGATIVE Chronic regurgitation 84 570269 R11.10 has had egd x 3 and seen multiple specialist s Type 2 chip betes mellitus 76786508 E11.9 A1C is now at 6.0, 6.1 was 6.7 (but he lost 30lbs ) 6.6 and was 6.5 and prior 6.5 was 6.7 and was 6.6 again as it was last time and before up from 6.4 stable [id number] MANUEL BILLS [facility] [address] [facility], [place] [address] 03/08/2024 10:53:58 03/08/2024 11:55:56 Gastroesophageal reflux disease 589723315 K21.00 suggested prilosec for reflux Abnormal weight loss 267 777483 R63.4 agreed to lab work [id number] MNAUEL BILLS [facility] [address] [facility],[place] [address] 04/26/2024 09:25:17 04/26/2024 14:54:21 Fall R29.6 will set up with PT Physical deconditioning 1905443919 9102 R68.89 will set up with PT Pain of le ft knee joint 2244472029 15078 M25.562 will set up with XR Acute hyperkalemia 13840 00 E87.5 will set up with with lab work [id number] MANUEL BILLS [facility] [address] [facility],[place] [address] 06/10/2024 13:52:26 06/10/2024 14:45:37 Right inguinal hernia 594626535 K40.90 will set up with US abdomen/gr oin to check on size and appearance Health Concerns Section Related Observation LastModified by Organization Detai ls LastModified Time None Recorded Concern Status LastModified by Organization Details LastModified Time None Recorded Advance Directives Directive None Recorded Payers Encounter Date Sequence Insurance Name Policy Number Policy Lambert Covered Member ID Lambert Member ID Guarantor Name 12/11/2023 1 [employer] MED[employer]AGE PLAN (MEDICARE REPLACEMENT HMO) [id number] 1 Karthikeyan Horton Sr. [id number] [facility] 01/12/2024 1 [employer] MED[employer]VANTAGE PLAN (MEDICARE REPLACEMENT HMO) [id number] 1 Karthikeyan Lazo Sr. [id number] [facility] 03/08/2024 1 [employer]AGE PLAN (MEDICARE REPLACEMENT HMO) [id number] 1 Karthikeyan Lazo Sr. [id number] [facility] 04/26/2024 1 [employer] MED[employer] ADVANTAGE PLAN (MEDICARE REPLACEMENT HMO) [id number] 1 Karthikeyan Lazo Sr. [id number] [facility] 06/10/2024 1 [employer]VANTAGE PLAN (MEDICARE REPLACEMENT HMO) [id number] 1 Karthikeyan Lazo . [id number] Karthikeyan Lazo Notes Date Note Type Note Provider Name and Address Organization Details Recorded Time 4 text/htm l Care Management - DiabetesReported bypatient.Self Care:seeing eye doctor yearly for dilated eye exam; checking feet regularly; normal range of home blood sugars (in the low 100s); no side effects from medications Associated Symptoms:symptoms are usually well controlled; no fatigue; no dizziness; no excessive sweating; no headaches; no confusion; no increased thirst; no increased appetite; no increased urination; no blurred vision; no numbness of feet; no calluses on feetCare Management - HypertensionReported bypatient.Self Care:not under emotional stress Severity:symptoms are improving; does not interfere with daily activities Associated Symptoms:no dizziness; no lightheadedness; no chest pain; no shortness of breath; no palpitations; no edema; no calf muscle cramps; no blurred vision; no confusion; no headaches; no fatigue here for rechk doing ok overallhe is in need of his new orthotics for his diabetic neuropathy we will need to refer him back to [facility] have kept his wegiht below 200states that he is feeling well wxcept for his vision still having issue with cataractand his retina is ok after 2 surgeries Jos Mirza, DO [address] [place], [address], [facility] 12/11/2023 14:18:49 4 text/htm l Medicare Annual Wellness VisitReported bypatient.Diet and Nutrition:healthy diet Fracture Risk:no history of fractures; no recent explained fracture; no sudden unexplained fractures; no previous musculoskeletal injuries Physical Activity:exercises on a regular basis; recent increase in physical activity; good physical condition Depression Risk:never feels sad, empty, or tearful; no loss of interest in activities; no significant changes in weight; no sleep disturbances or insomnia; no agitation; no loss of energy; no feelings of worthlessness or guilt; no thoughts of suicide; no history of depression; no history of mood disorders Orientation:no disorientation to time; no disorientation to date; no disorientation to place Concentration and Memory:no decreased concentrating ability; no memory lapses or loss; does not forget words Speech/Motor difficulties:no speech difficulties; no difficulty expressing formulated concepts; no difficulty with fine manipulative tasks; no difficulty writing/copying; no slowed reaction time; does not knock things over when trying to pick them up Hearing:no loss of hearing Vision:no vision problems Activities of Daily Living:able to bathe with limited or no assistance; able to contol urination and bowels; able to dress with limited or no assistance; able to feed self with limited or no assistance; able to get out of chair or bed with limited or no assistance; able to groom with limited or no assistance; able to toilet with limited or no assistance Instrumental Activities of Daily Living:able to do house work with limited or no assistance; able to grocery shop with limited or no assistance; able to manage medications with limited or no assistance; able to manage money with limited or no assistance; able to prepare meals with limited or no assistance; able to use the phone with limited or no assistance Falls Risk Assessment:no frequent falls while walking; no fall in the past year; no fall since last visit; no dizziness/vertigo Home Safety:no unsafe aminah hazzards; no unsafe stairs; no unsafe gas appliances; working smoke/CO detectors; wears protective head gear for biking/high velocity; use of seatbelts; practicing 'safer sex'; no vision or hearing loss while driving; no fire arms; has hand bars in the bathroom/shower; good lighting in the home here for annual wellnesshe is doing well and otherwise has a problem with constant regurgitation Jos Mirza, DO [address] [place], [address], [facility] 01/12/2024 14:21:53 4 text/htm l c/o Left Hip Pain the patient reports that he is having L hip pain starting during the nightstarted taking APAP and advil which had been improving the patient reports that it has been going on for about 2 to 3 weeks the patient denies injury or traumathe patient sits in his recliner with his feet and legs straight outthe patient also has been elevating his leg above the heart also notes that he has left knee pain for a bit, started using his cane for supporthasn't been using his cane the patient is still having a lot of issues with his GERD for his regurgitationhas esophageal dysmotility, has already seen GI for dilation, say there's not much more they can do the patient is seeing podiatry in two weeks to f/u on his new orthoticssuggested probable issues MANUEL BILLS [address] [place], [address], [facility] 03/08/2024 11:36:52 4 text/htm l f/u leg issue after fall the patient reports that he noted his neuropathy was the probable causethe patient reports that he was in the [facility] onc waiting room with his , when he got up from the chair and ended up falling backwards into the chair the patient is currently using the walker with a knee bracewill have him continue to use the knee brace for his L knee will recheck his K levels and kidneysalready sent referral with information will fu afterwards with patient MANUEL BILLS [address] [place], [address], [facility] 04/26/2024 10:04:32 5 text/htm l c/o abdominal hernia? the patient today is upset, his was just put on hospicehe has a good community with his family and people to talk to the patient reports that he has a hernia around the groin, right sideexam shows hernia, r inguinal, actively protruding, no signs of infection, strangulation or incarceration recommended US to check on itwill discuss options afterwards MANUEL BILLS [address] [place], [address], [facility] Internal Medicine 06/10/2024 14:32:23
--- OUTSIDE RECORDS SUMMARY | 2024-07-11 08:19 | XMS_ITS | Patient Health Record ---
Author Organization [facility] Address [address] [place] [address] Care Team Providers Care Rod Greaser Name Role Phone Jos Mirza MD Primary Care Provider Mic Thibodeaux Unavailable [phone] Allergies Allergen (clinical drug ingredient) Drug/Non Drug Allergy documented on EMR Reaction Allergy Type Onset Date Status Adhesive Tape rash, itching Drug Allergy Active Latex Latex Unknown Allergy Active omeprazole Omeprazole legs swelling, kidney issues Drug Allergy Active Reason For Referral No Information Medications Medication [...] Vaccine Route Administration Date Status Comme nts COVID-19 Pfizer BioNTech Vaccine Unknown 02/19/2021 Administered 2nd 07/21/2020 1st 06/25/2020 Influenza Unknown 01/23/2022 Administered Influenza Unknown 01/23/2023 Administered Social History Tobacco Use: Social History Observation [...] Problem Acquired hammer toe of right foot (014700742683970 5) Other hammer toe(s) (acquired), right foot (M20.41) Active confirmed Response to treatment,Im provement Problem Acquired hammer toe of left foot (868328620975648 3) Other hammer toe(s) (acquired), left foot (M20.42) Active confirmed Response to treatment,Im provement Problem Polyneuropathy due to type 2 diabetes mellitus (677629525) Type 2 diabetes mellitus with diabetic polyneuropathy (E11.42) Active confirmed Problem Ulcer of toe of left foot (disorder) (367296694555298 02) Skin ulcer of toe of left foot, limited to breakdown of skin (L97.521) Active confirmed Response to treatment improving Problem 374103041 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 confirmed Response to treatment, improving, Unresolved Vital Signs Blood pressure diastolic 70 mm Hg 04/19/2024 Height 6 ft 3 in in 04/19/2024 Blood pressure systolic 120 mm Hg 04/19/2024 Weight 195 lbs 04/19/2024 BMI 24.37 kg/m2 04/19/2024 Procedures Procedure Date Ordered Date Performed Result Body Sit e 73108-VFFVJAR NAIL, 1-5 08/11/2023 N/A 96266-SZHDRXH SKIN/TISSUE 08/11/2023 N/A 65763-NRLK SKIN LESIONS, 2 TO 4 08/11/2023 N/A Y8325-XZCXLWVF DYSTROPHIC NAILS ANY # 08/11/2023 N/A 80572-QOBJZDM NAIL, 6 OR MORE 11/20/2023 N/A 36532-IQNKUPK SKIN/TISSUE 11/20/2023 N/A 04850-DYEB SKIN LESIONS, OVER 4 11/20/2023 N/A 21692-EQJXFDM NAIL, 6 OR MORE 02/02/2024 N/A 11532-SKTYGKB SKIN/TISSUE 02/02/2024 N/A 02924-TKAE SKIN LESIONS, 2 TO 4 02/02/2024 N/A 34183-VWXGARW NAIL, 6 OR MORE 04/19/2024 N/A 18030- Debride <25 sq cm 04/19/2024 N/A 85077-CCYXYWL SKIN/TISSUE 04/19/2024 N/A 09215-JSQS SKIN LESIONS, 2 TO 4 04/19/2024 N/A Encounters Encounter Location Date Provider Diagnosis [facility] [address] [address] 08/11/2023 Mic Mo Type 2 diabetes mellitus with diabetic polyneuropathy E11.42 ; Tinea unguium B35.1 and Neuropathic ulcer of left heel with fat layer exposed L97.422 [facility] [address] [address] 11/20/2023 Mic Mo Type 2 diabetes mellitus with diabetic polyneuropathy E11.42 ; Tinea unguium B35.1 ; Neuropathic ulcer of left foot with fat layer exposed L97.522 ; Other hammer toe(s) (acquired), right foot M20.41 and Other hammer toe(s) (acquired), left foot M20.[address] [address] 02/02/2024 Mic Mo Type 2 diabetes mellitus with diabetic polyneuropathy E11.42 ; Tinea unguium B35.1 and Neuropathic ulcer of left foot with fat layer exposed L97.[address] [address] 04/19/2024 Mic Mo Type 2 diabetes mellitus with diabetic polyneuropathy E11.42 ; Tinea unguium B35.1 ; Neuropathic ulcer of left foot with fat layer exposed L97.522 ; Other hammer toe(s) (acquired), right foot M20.41 ; Other hammer toe(s) (acquired), left foot M20.42 and Skin ulcer of toe of left foot, limited to breakdown of skin L97.[address] [address] 07/31/2023 Mic Mo Assessments Encounter Date Diagnosis [...] X ray : Foot, left 3V 05/26/2023 00509-JZKNVBC NAIL, 6 OR MORE 05/26/2023 68339-NIDFKWU NAIL, 6 OR MORE 11/20/2023 79495-RQQZVRT NAIL, 6 OR MORE 02/02/2024 94747-IQYUMKC NAIL, 6 OR MORE 04/19/2024 62336-LJVBZRR NAIL, 6 OR MORE 10/16/2017 63624-HATWHVV NAIL, 6 OR MORE 12/22/2017 60848-DWEIUZW NAIL, 6 OR MORE 05/07/2018 93842-SECMLAR NAIL, 6 OR MORE 07/16/2018 49086-MPZQSEK NAIL, 6 OR MORE 02/23/2018 47614-LUYZCFZ NAIL, 6 OR MORE 09/24/2018 99777-ZKAHGUB NAIL, 6 OR MORE 12/10/2018 95153-IHCFZMY NAIL, 6 OR MORE 03/01/2019 62947-DXMISGC NAIL, 6 OR MORE 05/31/2019 66459-DKLXKEK NAIL, 6 OR MORE 09/27/2019 38842-VFYXECU NAIL, 6 OR MORE 01/03/2020 88799-RRBIYDN NAIL, 6 OR MORE 03/30/2020 78024-INBEMBA NAIL, 6 OR MORE 06/15/2020 64887-RHKBXLI NAIL, 6 OR MORE 09/14/2020 80676-XMHNHOJ NAIL, 6 OR MORE 04/23/2021 18803-OGMTPAA NAIL, 6 OR MORE 08/30/2021 42243-IVUCTWW NAIL, 6 OR MORE 11/15/2021 26253-ULWMRLW NAIL, 6 OR MORE 02/07/2022 16438-GHQOLUM NAIL, 6 OR MORE 04/25/2022 93255-LKKHLQU NAIL, 6 OR MORE 07/01/2022 12485-MIMPYNQ NAIL, 6 OR MORE 09/02/2022 43722-ZMJCETY NAIL, 6 OR MORE 11/21/2022 61925-OKXSYUO NAIL, 6 OR MORE 01/30/2023 45259-GPFXDPN NAIL, 1-5 08/11/2023 39110- Debride <25 sq cm 05/26/2023 46150- Debride <25 sq cm 04/19/2024 66242- Debride <25 sq cm 08/08/2022 39870- Debride <25 sq cm 07/01/2022 27065- Debride <25 sq cm 04/25/2022 83101- Debride <25 sq cm 12/20/2021 15332- Debride <25 sq cm 02/10/2020 73415- Debride <25 sq cm 01/03/2020 82936-ZBIKEFC SKIN/TISSUE 12/26/2019 43353-THNADTN SKIN/TISSUE 02/10/2020 11471-FDNSKIZ SKIN/TISSUE 03/30/2020 28420-OKPTQKE SKIN/TISSUE 10/10/2019 03674-JPLARHI SKIN/TISSUE 10/25/2019 89567-BMUAJZV SKIN/TISSUE 03/19/2022 47757-CCYUTGW SKIN/TISSUE 01/30/2023 89856-BPJTDHX SKIN/TISSUE 11/15/2021 04095-YVFKVMG SKIN/TISSUE 08/30/2021 62842-PQETBXH SKIN/TISSUE 09/10/2021 69566-MDRPIPN SKIN/TISSUE 10/01/2021 98420-QEDJJPT SKIN/TISSUE 06/15/2020 10320-IVVZSNR SKIN/TISSUE 04/19/2024 61011-AZZSFRC SKIN/TISSUE 02/02/2024 63886-BIQVRSI SKIN/TISSUE 11/20/2023 48128-IBJHBOZ SKIN/TISSUE 06/25/2022 76550-ZAGXBMQ SKIN/TISSUE 05/26/2023 84822-BMPDGAS SKIN/TISSUE 08/11/2023 49337 I&D ABSCESS- SIMPLE,SINGLE 020 27370-UMDJ SKIN LESIONS, OVER 4 10/17/19 18 03895-QZTM SKIN LESIONS, OVER 4 09/27/19 20 01502-MAPB SKIN LESIONS, OVER 4 05/31/19 20 39314-ZYFA SKIN LESIONS, OVER 4 03/30/20 20 81346-XWPO SKIN LESIONS, OVER 4 01/03/20 20 35053-EEDD SKIN LESIONS, OVER 4 03/01/20 19 35955-WOWK SKIN LESIONS, OVER 4 12/11/19 19 97923-GLJV SKIN LESIONS, OVER 4 09/25/19 19 52546-TIFS SKIN LESIONS, OVER 4 05/07/20 18 33010-GGLX SKIN LESIONS, OVER 4 07/16/19 19 89656-LPBN SKIN LESIONS, OVER 4 02/24/20 18 69838-XFHY SKIN LESIONS, OVER 4 12/23/19 18 08157-CKNY SKIN LESIONS, OVER 4 06/15/19 21 50020-DJHE SKIN LESIONS, OVER 4 04/23/20 21 01126-TVCF SKIN LESIONS, OVER 4 09/15/19 21 37561-ASTE SKIN LESIONS, OVER 4 08/31/19 22 88563-DUXH SKIN LESIONS, OVER 4 11/16/19 22 01754-VVSK SKIN LESIONS, OVER 4 09/16/20 22 17003-JPYC SKIN LESIONS, OVER 4 01/31/20 23 34652-MQCG SKIN LESIONS, OVER 4 11/22/19 23 43586-OTNT SKIN LESIONS, OVER 4 09/03/19 23 86582-XZNR SKIN LESIONS, OVER 4 04/25/20 22 71768-SAAM SKIN LESIONS, OVER 4 07/01/19 23 40665-RVWI SKIN LESIONS, OVER 4 05/26/19 24 84490-MFMU SKIN LESIONS, OVER 4 11/20/19 24 24034-GZIV SKIN LESIONS, 2 TO 4 02/02/20 24 84258-ERYG SKIN LESIONS, 2 TO 4 04/19/20 24 87506-VRGF SKIN LESIONS, 2 TO 4 08/11/19 24 C4566-MWJIMNRW DYSTROPHIC NAILS ANY # 57808-Pbkfbvfee, Toes 10/25/2019 09006 - Tenotomy, open flexor 02/28/2020 16582 - Tenotomy, open flexor 09/03/2018 28968 - Tenotomy, open flexor 07/15/2022 20976 - Tenotomy, open flexor 08/15/2022 77668 - Tenotomy, open flexor 01/13/2023 22219 - Tenotomy, open flexor 07/03/2020 Next Appt Details Provider Name:Mic Mo , 07/22/2024 12:45:00 PM, [address] [facility], [place], [address], Insurance Providers Payer Name Payer Address Payer Phone Subscriber Number Group Number Insured Name Patient Relationship to Insured Coverage Start Date Coverage End Date [employer]age [address] [place] [address] [id number] Karthikeyan Lazo Self - patient is the insured Medical (General) History Medical History History ICD Code High blood pressure Kidney disease Numbness type II diabetes covid-19 Surgical History Surgery Date(Month/Year) R eye surgery Mathew cuellar 2020 L 2nd hammer toe 05/31/2021 endoscopy 03/15,05/15 Right 2nd toe for osteo 07/17/23 torn retna cataract surgery amputation, right great toe - 08/18/23 Hospitalization History Reason Date(Month/Year) [facility] 12/04/2020 [facility] - infection toe 07/10/2018 [facility] for toe infection 01/15 -01/21 [facility] for [facility] 05/20/17
--- OUTSIDE RECORDS SUMMARY | 2024-07-11 08:20 | XMS_ITS | Patient Health Record ---
Author Organization [facility] Address [address] [place] [address] Care Team Providers Care Interstate Planner Name Role Phone Jos Mirza Primary Care [...] Problem Hypertension, unspecified type (I10) Active confirmed 16117374 Problem Esophageal stricture (K22.2) Active confirmed 20759959 Problem Regurgitation of food (R11.10) Active confirmed 378140293 Problem Other dysphagia (R13.19) Active confirmed 86197291 Problem Gastric polyp (K31.7) Active confirmed 16744682 Problem Dysphagia (R13.10) Active confirmed Dys phagia (63063494) Problem Achalasia (K22.0) Active confirmed 4556 0231 PLAN OF TREATMENT Future Test Test Name Order Date UPPER GI ENDOSCOPY BALLOOON DILATION OF ESOPH 03/11/2019 UPPER GI ENDOSCOPY BALLOOON DILATION OF ESOPH 02/17/2022 UPPER GI ENDOSCOPY 03/12/2022 Insurance Providers Payer Name Payer Address Payer Phone Subscriber Number Group Number Insured Name Patient Relationship to Insured Coverage Start Date Coverage End Date [facility] [address] [place] [phone] [id number] LUNA LAM Self - patient is the insured MEDICAL (GENERAL) HISTORY Medical History History ICD Code Type 2 diabetes mellitus, neuropathy hypertension kidney disease, stage 3 LINDA/CPAP SVT Diabetic foot infection Aortic stenosis Surgical History Surgery Date(Month/Year) Hospitalization History Reason Date(Month/Year) [facility], bone infection 2020
--- OUTSIDE RECORDS SUMMARY | 2024-07-11 08:20 | XMS_ITS | Clinical Summary ---
Author Organization [facility] Address [address] [place] [address] Care Team Providers Care Memory Care Program Director Name Role Phone Jos Mirza DO Primary Care Provider [phone] Allergies Active Allergy Reactions Criticality Noted Date [...] to complete this topic Insurance Care Teams Memory Care Program Director Relationship Specialty Start Date End Date Jos Mirza DO [address] [place] [address] PCP - General 06/04/20
--- OUTSIDE RECORDS SUMMARY | 2024-07-11 08:21 | XMS_ITS | Encounter Summary ---
Author Organization [facility] Address [address] [place] [address] Care Team Providers Care Glass Blower Name Role Phone Jos Mirza DO Primary Care Provider [phone] Reason for Visit * Reason Comments Follow-up Left foot wound Encounter Details Date Type Department Care Team ([facility] st Contact Info) Description 06/29/2024 8:45 AM EST Office Visit Orthopedic Surgery - [place] [address] [phone] Shay Brito DPM [address] [address] Chronic osteomyelitis of hindfoot, left (CMS/HCC) (Primary Dx); Follow-up exam; Ulcer of toe of right foot, limited to breakdown of skin (CMS/HCC); Ulcer of toe of left foot, with fat layer exposed (CMS/HCC) Social History Tobacco Use Types Packs/Day Years Used Date Smoking Tobacco: Never Smokeless Tobacco: Never Alcohol Use Standard Drinks/Week Comments Never 0 [...] Mass Index 24 06/29/2024 8:34 AM EST documented in this encounter Progress Notes * Shay Brito DPM - 06/29/2024 8:45 AM EST S Patient has now finished course of antibiotics several months now he notes that his wound of his left great toe is present his left second has not come back his right third has been bothering him a little bit he does not that he is very distraught today secondary to losing his this past weekend to brain cancer has declined radiographs today's appointment is without complaint to his feet ROS: GENERAL: Pt denies nausea, fever, vomiting, [...] Outpatient Medications Marked as Taking for the 06/29/24 encounter (Office Visit) with Shay Brito DPM Medication Sig Dispense Refill ascorbate calcium, [...] for pain silver sulfate/foam bandage (ME[facility]LEX [facility]) Apply 1 Applicator topically daily. Apply daily [...] moderate, MALODOR, absent, CALOR, absent, ERYTHEMA, absent. Right third digit wound dermal 3 mm x 3 mm x 1 mm BIOMECHANICS: Reviewed amputation right hammertoe contracture left IMPRESSION: 1. Chronic osteomyelitis of hindfoot, left (CMS/HCC) 2. Follow-up exam 3. Ulcer of toe of left foot, with necrosis of bone (CMS/HCC) 4. Ulcer of toe of right foot, limited to breakdown of skin (CMS/HCC) PLAN: Radiographs reviewed degenerative changes noted no soft tissue crepitation noted at this point patient has been treated for chronic osteomyelitis and septic joint with no residual findings aside fromchronic degenerative changes most likely consistent with aggressive bony debridement is provided inthe office patient declined today's radiographs New x-rays ordered left with 3 views Treatment options were discussed with patient including bone biopsy for definitive diagnosis will continue to monitor has been without soft tissue infections at this time and has been aggressively treated with a course of oral antibiotics following IDSA guidelines with the limitation of patient being noncompliant and willing to go to the hospital for surgical debridement and IV antibiotics patient would like to continue to monitor off antibiotics he has not been off antibiotics for prolonged period of time Follow-up in 1 month ULCER: LOCATION left [...] Devitalized tissue was not sent to pathology. Right third digit wound dermal 3 mm x 3 mm x 1 mm Open wound Open wound selective debridement of devitalized soft tissue, fibrin, epidermis, dermis, thru skin tissue, first 20 sq cm or less, using sterile sharp dissection #15 scalpel blade. Pt. deferred anesthesia. . Devitalized tissue was not sent to pathology. Shay Brito DPM documented in this encounter Plan of Treatment Not on file documented as of this encounter Visit Diagnoses Diagnosis Chronic osteomyelitis of hindfoot, left (CMS/HCC)- Primary Follow-up exam Unspecified follow-up examination Ulcer of toe of right foot, limited to breakdown of skin (CMS/HCC) Ulcer of toe of left foot, with fat layer exposed (CMS/HCC) documented in this encounter Orders Imaging Orders Without Results Count Last Order ed Date First Ordered Date XR FOOT 3+ VIEWS LEFT 1 06/29/2024 documented in this encounter Care Teams Glass Blower Relationship Specialty Start Date End Date Jos Mirza DO [address] [facility] [address] [place], [place] PCP - General Internal Medicine 12/14/20 documented as of this encounter
--- OUTSIDE RECORDS SUMMARY | 2024-07-11 08:21 | XMS_ITS ---
Author Organization [facility] Address [address] [place] [address] Care Team Providers Care Machine Stuffer Automatic Name Role Phone Jos Mirza Primary Care Provider Too Torres Jr REASON FOR VISIT update on being on medication Encounters Encounter Location Date Provider Diagnosis [facility] [address] [place] [address] 01/20/2023 Too Casey Jr PLAN OF TREATMENT No Information
--- OUTSIDE RECORDS SUMMARY | 2024-07-11 08:21 | XMS_ITS ---
Author Organization [facility] Address [address] [place] [address] Care Team Providers Care Clothing Pattern Preparer Name Role Phone Hermes MILIAN, Jos Primary Care Provider UnavailMic Howe Unavailable [phone] REASON FOR VISIT for sooner apt Encounters Encounter Location Date Provider Diagnosis [address] [address] 01/05/2024 Mic Mo Plan Of Treatment Next Appt Details Provider Name:Mic Mo , 07/22/2024 12:45:00 PM, [address] [place] [address], [phone], Progress Notes * Karthikeyan LAM ADOB: (83 yo M)Acc No.[id number]:01/05/2024 Progress Note Patient:?Karthikeyan LAM Provider:?Mic Mo DPM :1940???Age:83 Y???Sex:Male Lex e:01/05/2024 Address:[address] [place] [phone] Pcp:Jos Mirza MD Subjective: * Chief Complaints: [...] DPM Date:?2023 Generated for Nighat neely/Duncan/Melo on:?07/11/2024 08:20 AM EST
== END 2024-07-11 08:16 | disposition home or self-care (01) ==
LOC: HO.US 08:15
PROVIDERS: PCP Internal Medicine; Visit Provider Physician Assistant
DX: K40.90 Unilateral inguinal hernia, without obstruction or gangrene, not specified as recurrent (principal)
CPT/HCPCS: 76705

== ENCOUNTER → 2024-07-11 08:18 | Outpatient (BNV) | payer MEDICARE, SELFPAY | PROVIDERS: PCP Internal Medicine; Visit Provider Radiology Diagnostic Radiology | DX: K40.90 Unilateral inguinal hernia, without obstruction or gangrene, not specified as recurrent (principal) | CPT/HCPCS: 76705 ==

== ENCOUNTER → 2024-07-13 08:48 | Outpatient (REF) | payer MEDICARE, SELFPAY ==
--- OUTSIDE RECORDS SUMMARY | 2024-07-13 08:52 | XMS_ITS ---
Author Organization [facility] Address [address] [place] [address] Care Team Providers Care Mix Mill Tender Name Role Phone Hermes MILIAN, Jos Primary Care Provider Mic Thibodeaux Unavailable [phone] Allergies Allergen (clinical drug ingredient) Drug/Non Drug [...] Ordered Date Performed Result Body Sit e 77753-JELMMPF NAIL, 6 OR MORE 02/02/2024 N/A 57052-SVRKLAL SKIN/TISSUE 02/02/2024 N/A 23174-EJDB SKIN LESIONS, 2 TO 4 02/02/2024 N/A Encounters Encounter Location Date Provider Diagnosis [facility] [place] [address] [place] [address] 02/02/2024 Mic Mo Type 2 diabetes mellitus [...] INSTRUCTIONS.pdf) Pending Test Test Name Order Date 64735-XUQXSYT NAIL, 6 OR MORE 02/02/2024 31570-LUPLZGS SKIN/TISSUE 02/02/2024 39097-PNHQ SKIN LESIONS, 2 TO 4 02/02/20 24 Next Appt Details Follow Up: prn, Reason: Provider Name:Mic Mo , 07/22/2024 12:45:00 PM, [address] [place] [address], [phone], Procedure Notes * Category Sub-Category Detail Notes Debride Nail 6-10 Nail debridement Performance o f this nail treatment by a nonprofessional would put this patients foot and overall health at risk. Therefore, nail debridement was performed extensively to reduce/remove overall nail length, girth, thickness, subungual debris, and necrotic tissue, by manual and/or electrical means through the use of a nail nipper and/or dremel-type profile grinder, to a more viable healthy nail plate or bed tissue 6-10. Silver nitrate used for any petechial bleeding as necessary. Definitive antifungal treatment options have been reviewed and discussed with the patient. The patient chooses, no pharmaceutical tx - 98725 Debride skin and subQ Open wound Physician [...] of the wound post debridement is stable (77801) Keratoma Treatment Parring or Cutting o f Benign Hyperkeratotic Lesion(s) (-56) 2-4 Lesions - The Benign hyperkeratotic lesions, as described above were pared, and/or cut utilizing a sterile 15 blade, tissue nippers, and/or dremel - 01188 Progress Notes * Karthikeyan LAM ADOB: 1 (83 yo M)Acc No.[id number]:02/02/2024 Progress Note Patient:?Karthikeyan Lam A Provider:?Mic Mo DPM :1940???Age:83 Y???Sex:Male Lex e:02/02/2024 Address:[address] [place], [place] [address] Pcp:Jos Mirza MD Subjective: * Chief Complaints: [...] * Surgical History:?R eye surg [facility] 2nd hammer toe 05/31/2021endoscopy 03/15,05/15Right 2nd toe for osteo 07/17/23torn retna cataract surgery amputation, right great toe - 08/18/23 * Hospitalization/Major Diagno stic Procedure:?[facility] for toe infections 05/20/17[facility] toe [facility] 01[facility]-01/21[facility] - infection [...] of left foot with fat layer exposed?Procedure: 47458-BEFAJNO SKIN/TISSUE Notes: Patient Educated with: WOUND CARE [...] use of a nail nipper and/or dremel-type profile grinder, to a more viable healthy nail plate or bed tissue 6-10. Silver nitrate used for any petechial bleeding as necessary. Definitive antifungal treatment options have been reviewed and discussed with the patient. The patient chooses, no pharmaceutical tx - 63136.?Debride skin and subQ:?Open wound?Physician of record performed [...] of the wound post debridement is stable (04348).?Keratoma Treatment:?Parring or Cutting of Benign Hyperkeratotic Lesion(s)?(-56) 2-4 Lesions - The Benign hyperkeratotic lesions, as described above were pared, and/or cut utilizing a sterile 15 blade, tissue nippers, and/or dremel - 19719.? * Procedure Codes:?15750 DEBRI DE SKIN/TISSUE, Modifiers: XS 26534 DEBRIDE NAIL, 6 OR MORE, Modifiers: XS 25743 TRIM SKIN LESIONS, 2 TO 4, Modifiers: [...] Mo DPM Date:?2023 Generated for Nighat neely/Duncan/Melo on:?07/13/2024 08:52 AM EST History and Physical Notes * [...]
--- OUTSIDE RECORDS SUMMARY | 2024-07-13 08:52 | XMS_ITS ---
Author Organization [facility] Address [address] [place] [address] Care Team Providers Care Second Mate Name Role Phone Jos Mirza Primary Care Provider Too Torres Jr REASON FOR VISIT Patient presents today for regurtation Encounters Encounter Location Date Provider Diagnosis [facility] [address] [place] [address] 04/27/2023 Too Casey Jr PLAN OF TREATMENT No Information
--- OUTSIDE RECORDS SUMMARY | 2024-07-13 08:53 | XMS_ITS ---
Author Organization [facility] Address [address] [place] [address] Care Team Providers Care Pneumatic Deicer Inspector Name Role Phone Jos Mirza Primary Care Provider Too Torres Jr [phone] REASON FOR VISIT cancel appt Encounters Encounter Location Date Provider Diagnosis [facility] [address] [place] [address] 04/01/2023 Too Casey Jr PLAN OF TREATMENT No Information
--- OUTSIDE RECORDS SUMMARY | 2024-07-13 08:53 | XMS_ITS | Data Portability ---
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) MDM MODERATE MUST MEET 2 OUT OF [...] 2023 12 024 [email or web address] [facility], [address] [facility] [address], [place], [address], 4 09:56:45 TSH + free T4, serum 2023 [facility], [address] [place] [address], [address], 4 08:38:19 CMP, serum or plasma 2023 [facility], [address] [place] [address], [address], 4 00:41:30 CBC w/ auto diff 2023 [facility], [address] [place] [address], [address], 4 11:33:00 iron + TIBC + ferritin, serum 2023 [facility], [address] [place] [address], [address], 4 11:33:00 vitamin B12 + folate, serum or blood 2023 [facility], [address] [place] [address], [address], 4 11:33:00 magnesium, serum or plasma 2023 [facility], [address] [place] [address], [address], 4 11:33:00 zinc, blood 2023 [facility], [address] [place] [address], [address], 4 08:51:15 amylase + lipase, serum 2023 [facility], [address] [place] [address], [address], 4 11:33:00 C-reactive protein, quantitati ve, serum or plasma 2023 [facility], [address] [place] [address], [address], 4 11:33:00 ESR (erythrocy te sedimentat ion rate), blood 2023 [facility], [address] [place] [address], [address], 4 11:33:00 lipid panel, blood 2023 024 [facility], [address] [place] [address], [address], 4 14:22:24 hemoglobin , gastrointe stinal, stool 2023 024 [facility], [address] [place] [address], [address], 4 16:46:26 CBC w/ auto diff 2023 024 [facility], [address] [place] [address], [address], 4 15:14:49 CMP, serum or plasma 2023 024 [facility], [address] [place] [address], [address], 4 17:23:42 HbA1c (hemoglobi n A1c), blood 2023 024 [facility], [address] [place] [address], [address], 4 11:08:43 HbA1c (hemoglobi n A1c), blood 2023 024 [facility], [address] [place] [address], [address], 4 11:08:43 Referral physical therapist referral 2023 024 [facility], [address] [place], [address], 4 08:57:37 Procedures None recorded. Surgeries None recorded. Imaging US, abdomen, limited 2024 025 [facility] Scheduling, [address] [place], [address], 5 08:39:02 XR, knee, 3 view 2023 024 [facility], [address] [place], [address], 08:51:58 Medication Orders None recorded. Patient TargetsNo targets recorded. Patient Instructions Encounter Date Encounter Id Patient Instructions Last Modified By Organization Details Last Modified Time 01/12/2024 [id number] advance care planning: care instructions Not available 01/12/2024 14:20:40 Discussed and explained advance directives such as standard forms to the {{patient caregiv er patient and caregiver}}. Face to face discussion lasted for a duration of ___ minutes. Not available 01/12/2024 08:55:39 Reason for Referral Physical Therapist Referral for Fall physical deconditioning Referring Physician: Ila Guillen, Internal Medicine, Encounter Date: 04/26/2024 Results [...] more view No observ ation record ed. [email or web address] Not Available 03/16 08:34:58 03/23/20 24 03/23/2024 XR, foot, 3 or more view No observ ation record ed. [facility]) [address] [place], [address], 03/25/2024 08:46:18 04/27/20 24 04/26/2024 XR, knee, 3 view No observ ation record ed. [email or web address] Not Available 04/27 09:28:02 05/20/20 24 04/14/2024 US, duple x, arter ial, lower extre mity No observ ation record ed. [email or web address] [facility] (Medical Records) [address] [place], [address], 05/20/2024 09:51:40 07/11/19 25 07/11/2024 US, abdom en, limit ed No observ ation record ed. [facility] Central Scheduling [address] [place], [address], 07/12/2024 12:17:01 Result Notes None recorded. Problems Name Problem SNOMED Code Status Onset Date Resolution Date Notes Provider Name and Address Organization Details Recorded Time Gastroeso phageal reflux disease 820692808 Active 2017 Not Available [facility] 14:23:18 Esophagea l web / ring 875803327 Active 2017 Not Available [facility] 14:23:18 Hypertens esperanza disorder 33962210 Active 2017 white coat Not Available [facility] 14:23:18 Osteomyel itis 33874618 Active 2017 Not Available [facility] 14:23:18 Chronic kidney disease 140772954 Active 2017 Not Available [facility] 14:23:18 Inflamed seborrhei c keratosis 405418212 Active 2017 Not Available [facility] 1 14:23:18 Type 2 diabetes mellitus 19377261 Active 2017 Not Available [facility] 1 14:23:18 Neuropath y due to diabetes mellitus 013884658 Active 2017 Not Available [facility] 1 14:23:18 Systolic murmur 28434987 Active 2019 Not Available [facility] 1 14:23:18 Labile hypertens ion due to being in a clinical environme nt 479349934 Active 2019 Not Available [facility] 1 14:23:18 Hiatal hernia 21873121 Active [address] [place] [address], [address], [facility] 1 10:33:42 COVID-19 169939538 Active [address] [place] [address], [address], [facility] 3 12:31:00 Ulcer of toe 675479820 Active 2022 Jos Mirza DO [address] [place] [address], [address], [facility] 3 13:58:08 Aortic stenosis, non-rheum atic 078303949 Active 2022 Jos Mirza DO [address] [place] [address], [address], [facility] 3 10:51:05 Bilateral lower leg edema 964773544 Active 2022 Jos Mirza DO [address] [place] [address], [address], [facility] 3 10:51:39 Achalasia 21996863 Active 2022 type [address] [place] [address], [address], [facility] 3 12:43:54 Aspiratio n pneumonia 391675077 Active [address] [place] [address], [address], [facility] 3 10:38:39 Ulcer of foot 56446901 Active 2023 Jos Mirza, DO [address] [place] [address], [address], [facility] 4 14:45:58 Cataract due to diabetes mellitus type 2 828960540 Active 2023 Jos Mirza, DO [address] [place] [address], [address], [facility] 4 14:50:18 Osteomyel itis of right foot 486422085642 9100 Active [address] [place] [address], [address], [facility] 4 15:43:38 Chronic regurgita tion 31483255 Active 2023 Jos Mirza, DO [address] [place] [address], [address], [facility] 4 14:17:34 Osteomyel itis of left foot 211634184384 9107 Active 2023 Jos Mirza DO [address] [place] [address], [address], [facility] 4 21:23:01 Abnormal weight loss 511349621 Active [address] [place] [address], [address], [facility] 4 11:18:46 Essential hypertens ion 75023160 Active [address] [place] [address], [address], [facility] 4 15:50:51 Fall Active 2023 MANUEL BILLS [address] [place], [address], [facility] 4 09:44:26 Physical deconditi oning 588500749717 02 Active 2023 MANUEL BILLS [address] [place], [address], [facility] 4 09:47:23 Pain of left knee joint 211553134963 107 Active 2023 MANUEL BILLS [address] [place], [address], [facility] 4 09:51:19 Acute hyperkale desiree 2537829 Active 2023 MANUEL BILLS [address] [place], [address], [facility] 4 09:55:08 Right inguinal hernia 106807799 Active 2024 MANUEL BILLS [address] [place], [address], [facility] 5 14:20:52 Notes:Some problems listed i n Documents: #[id number], #[id number], #[id number], #[id number], #[id number] could not be added to this patient's chart. Please review these documents and add these problems to the patient's chart manually as needed. Problem Notes None recorded. Procedures Surgical History Date Name Laterality Status Provider Name and Address Organization Details Recorded Time 020 Arthrocentesis Major Joint/Bursa completed August MAURIZIO Parker [address] [place] [address], [address], [facility] 07/29/2019 11:49:15 020 Removal of foreign body in ear canal completed August MAURIZIO Parker [address] [place] [address], [address], [facility] 07/29/2019 11:50:25 Imaging Results Imaging Date Name Status LastModified by Organiz ation Details LastModified Time 12/22/2023 XR, foot completed [email or web address] Information no t available 12/22/2023 16:41:03 02/17/2024 XR, foot, 3 or more view completed Information not available 02/19/2024 10:54:34 02/25/2024 XR, foot completed Information no t available 02/26/2024 14:59:35 03/15/2024 XR, foot, 3 or more view completed [email or web address] Information not available 03/16/2024 08:34:58 03/23/2024 XR, foot, 3 or more view completed [facility] [address] [place], [address], 03/25/2024 08:46:18 04/26/2024 XR, knee, 3 view completed [email or web address] Information not available 04/27/2024 09:28:02 04/14/2024 US, duplex, arterial, lower extremity completed [facility] (Medical Records) [address] [place], [address], 05/20/2024 09:51:40 07/11/2024 US, abdomen, limited completed [facility] [address] [place], [address], 07/12/2024 12:17:01 Procedure Notes None recorded. Medical Equipment None Reported. Allergies Allergen ID Allergen Name Allergen Category Reaction Reaction Severity Criticality Documentation Date Start Date Code Code System Note Provider Name and Address Organization Details Recorded Time 2511 adhesive environme nt,medica tion Not available Not available Not available 04/09/2018 [id number] UNK Simi arthur [place] - [facility] 8 15:08:01 Medications Name Sig Start Date Stop Date Status Note LastModified by Organization Details LastModified Time freestyle mis lancets 12/01 completed Not Available Not Available Not Available freestyle lancets misc active Not Available Not Available Not Available freestyle eliu 12/01 completed Not Available Not [...] Available No t Available FreeStyle Ana 2 [place] USE DIRECTED active Not Available Not Available [...] Updated DateTime 4 189.87 cm 24.5 kg/m2 73767.5 1 g 65 /min 98 % 98 % 134 mm[Hg] 78 mm[Hg] Jennifer Andrew [facility] 4 13:47:00 Date Recorded Body height Body mass index (BMI) Body weight Heart rate Oxygen saturation Oxygen saturation in Arterial blood by Pulse oximetry Systolic blood pressure Diastolic blood pressure Provider Name and Address Organization Details Last Updated DateTime 4 190.5 cm 24.4 kg/m2 34874.5 1 g 65 /min 98 % 98 % 140 mm[Hg] 60 mm[Hg] Tu Zamudio [facility] 4 14:04:24 Date Recorded Body height Body mass index (BMI) Body weight Heart rate Oxygen saturation Oxygen saturation in Arterial blood by Pulse oximetry Systolic blood pressure Diastolic blood pressure Provider Name and Address Organization Details Last Updated DateTime 4 190.5 cm 23.2 kg/m2 13835.1 8 g 87 /min 97 % 97 % 166 mm[Hg] 84 mm[Hg] Jennifer Arnaldo [facility] 4 11:03:18 Date Recorded Body height Body mass index (BMI) Body weight Heart rate Oxygen saturation Oxygen saturation in Arterial blood by Pulse oximetry Systolic blood pressure Diastolic blood pressure Provider Name and Address Organization Details Last Updated DateTime 4 190.5 cm 22.9 kg/m2 05774.4 g 69 /min 99 % 99 % 142 mm[Hg] 68 mm[Hg] Nakita Valladares [facility] Internal [facility] 4 09:36:14 Date Recorded Body height Heart rate Oxygen saturation Oxygen saturation in Arterial blood by Pulse oximetry Systolic blood pressure Diastolic blood pressure Provider Name and Address Organization Details Last Updated DateTime 5 190.5 cm 68 /min 97 % 97 % 152 mm[Hg] 84 mm[Hg] Jennifer Mcintosh [facility] Internal Medicine 5 14:05:43 Social History Question Answer Notes LastModified by Organizat ion Details LastModified Time Tobacco Smoking Status Never Smoker Not Available [facility] 03/27/2020 03:36:24 What Was The [...] zoster live 10/24/19 12 completed Nai arthur [facility] 02/03/2018 16:12:49 Influenza, split virus, quadrivalent, preservative 01/16/20 21 completed Jos Mirza, DO [address] [place] [address], [address], [facility] 04/16/2021 09:59:56 COVID-19, mRNA, LNP-S, PF, 30 mcg/0.3 mL dose 02/21/20 21 [facility] 10:01:17 influenza, unspecified formulation 01/31/20 22 completed Jos Mirza, DO [address] [place] [address], [address], [facility] 07/25/2022 13:39:10 Influenza, split virus, quadrivalent, preservative 01/19/20 19 completed Simi Riddle [facility] 01/19/2019 08:07:19 pneumococcal polysaccharide PPV23 12/15/19 18 completed Not Available [facility] 06/25/2019 02:14:52 Influenza, split virus, quadrivalent, preservative 02/07/20 20 [facility] 13:36:29 zoster recombinant 05/29/19 21 [facility] 13:55:39 zoster, unspecified formulation 08/14/19 21 [facility] 14:30:47 COVID-19, mRNA, LNP-S, PF, 30 mcg/0.3 mL dose 07/20/19 21 [facility] 13:37:20 COVID-19, mRNA, LNP-S, PF, 30 mcg/0.3 mL dose 07/05/19 21 [facility] 13:37:30 Td(adult) unspecified formulation 09/27/19 17 [facility] 01/27/2018 08:24:33 Influenza, split virus, quadrivalent, preservative 01/30/20 18 completed Jos Mirza, [address] [place] [address], [address], [facility] 01/30/2018 14:25:04 Past Encounters Encounter ID Performer Location Encounter Start Date Encounter Closed Date Diagnosis/Indication Diagnosis SNOMED-CT Code Diagnosis ICD10 Code Diagnosis Note [id number] Jos Mirza DO [facility] [address] [facility],[place] [address] 09/08/2017 10:25:07 09/08/2017 12:21:26 Adult health examination 838355759 Z00.01 cont to follow up with wound care drs and his bp dr Active or passive immunization 589454761 Z23 [id number] August MAURIZIO Parker [facility] [address] [place] [address], [place] [address] 12/09/2017 15:14:15 12/09/2017 16:34:28 Cellulitis of lower limb 978218924 L03.119 due to concern for recurrent cellulitis and acute skin changes recommend starting abx Diabetic foot ulcer 3710 63839 E11.40 Type 2 chip betes mellitus 66866449 E11.65 Hypertensive disorder 38 738764 I10 123/63 this morning at home white coat [id number] Jos Mirza DO [facility] Medicine [address] [place] [address],[place] [address] 12/11/2017 11:41:34 12/11/2017 12:46:01 Type 2 diabetes mellitus 60010167 E11.9 a1c is 6.5 and pt is doin g well Hypertensive disorder 38 978765 I10 stable Cellulitis of foot 89122 6007 L03.119 increase cephalexin to qid and follow closely will receck next week [id number] Jos Mirza DO [facility] Internal Medicine [address] [facility],[place] [address] 12/15/2017 13:23:34 12/15/2017 16:09:58 Cellulitis of toe 82330838 L03.032 clearing continue with abx for next 5 days and finish all [id number] Mariah Carias NP, S [facility] Internal Medicine [address] [place] [address],[place] [address] 01/18/2018 10:28:06 01/18/2018 13:31:11 Cellulitis of toe 29094129 L03.032 Neuropathy due to diabetes mellitus 443075712 E11.[address] Berna dubose Hypertensive disorder 38 853257 I10 follow Chronic ki dney disease 166468329 N18.9 stable, creat 2, no micro albumin [id number] Mariah Carias NP, [facility] Internal Medicine [address] [facility],[place] [address] 01/27/2018 11:10:50 01/27/2018 16:23:20 Fatigue 12172127 R53.83 Infection of toe 8488331 06 L08.9 f/u wound care Chronic ki dney disease 973912810 N18.9 creatinine up to 2.31, to recheck next Thursday Skin react ion irritant 831546548 R23.8 avoid cortisone [id number] Mariah Carias NP, [facility] Internal Medicine [address] [facility] [address] 02/05/2018 11:37:03 02/05/2018 12:16:23 Neuropathy due to diabetes mellitus 823639354 E11.40 Hypertensive disorder 38 411406 I10 follow Chronic ki dney disease 616519175 N18.9 creat improved to 1.8 [id number] Mariah Carias NP, [facility] Internal Medicine [address] [facility],[place] [address] 03/31/2018 15:17:57 03/31/2018 16:20:54 Painful rectal bleeding 702907192 K62.5 [id number] Jos Mirza [facility] Internal Medicine [address] [facility],[place] [address] 04/09/2018 15:02:16 04/09/2018 16:26:21 Adult health examination 595395886 Z00.01 cont to follow up with wound care drs and his bp dr Screening for cardiovascular system disease 129642131 Z13.6 no symptoms noted needs cholestero l ordered Screening for malignant neoplasm of colon 670022062 Z12.11 had 2 yrs ago Hypertensive disorder 38 665603 I10 stable overall at home is in 110's over 60's Type 2 chip betes mellitus 23979217 E11.9 a1c is 6.1 and pt is doing well Osteomyelitis 76274800 M 86.9 ongoing treatment of left foot and is having leaking daily so hole is still present has a silver alginate dressing applied daily this has been ongoing for 1 year will prob need more hyperbaric treatment [id number] Jos Mirza [facility] Internal Medicine [address] [facility], [place] [address] 07/14/2018 09:31:53 07/14/2018 10:06:22 Osteomyelitis 82538682 M86.9 ongoing treatment of left foot and is having leaking daily so hole is still present has a silver alginate dressing applied daily but this was stopped as it was too occlusive this has been ongoing for 1 year will prob need more hyperbaric treatment Cellulitis of lower leg 186322684 L03.119 is resolving on levaquin will finish culture not taken has appearance of completely resolved cellulitis after only 3 days of levaquin Type 2 chip betes mellitus 96250229 E11.9 a1c is 6.3 and pt is doing well Chronic ki dney disease 729989439 N18.9 is actually stable with his creat 1.88 Hypertensive disorder 38 161830 I10 stable overall now on losartan 100 mg at home is in 110's over 60's [id number] Jos Mirza DO [facility] Internal Medicine [address] [facility], [place] [address] 10/11/2018 14:17:14 10/11/2018 14:57:47 Type 2 diabetes mellitus 10774346 E11.9 a1c is 6.5 and pt is doing well Hypertensive disorder 38 292463 I10 stable overall now on losartan 100 mg at home is in 110's over 60's Neuropathy due to diabetes mellitus 334527532 E11.40 cont with keeping his sugar controlled Chronic ki dney disease 747306000 N18.9 creat has increased to 2.8 and is worrisome and will need to continue follow with Dr Duran Edema of l ower extremity 106059614 R60.0 possibilit y of nifedipine being the cause [id number] Jos Mirza [facility] Internal Medicine [address] [facility],[place] [address] 02/08/2019 13:28:02 02/08/2019 14:30:29 Hypertensive disorder 11372273 I10 stable overall now on losartan 100 mg at home is in 110's over 60's Type 2 chip betes mellitus 29846996 E11.9 a1c is 6.4 was 6.5 and pt is doing well Stricture of esophagus 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 K22.2 please send prior notes from [facility] ([facility] [place]) [id number] Jos Mirza [facility] Internal Medicine [address] [facility] [address] 06/17/2019 15:04:08 06/17/2019 16:09:39 Chronic kidney disease 766060622 N18.9 Awaiting documentat ion from Neph Was referred to Heme/Onc likely for anemia GFR stable at 28 Neuropathy due to diabetes mellitus 768921887 E11.40 cont with keeping his sugar controlled Hypertensive disorder 38 804785 I10 BP well controlled Started doxazosin 2 mg by nephrology Type 2 chip betes mellitus 01513090 E11.9 A1C is 6.6 up from 6.4 stable [id number] MAURIZIO Rutledge [facility] Internal Medicine [address] [facility] [address] 07/29/2019 10:52:25 07/29/2019 12:10:52 Bursitis of olecranon of left elbow 2346267878 29341 M70.22 successful olecranon bursa drainage f/u if fluid returns Foreign janeth dy in left ear 6173504711 5157236 T16.2XXA ear tube removed from canal without complicati on Foreign janeth dy in right ear 7177494232 1485315 T16.1XXA ear tube removed from canal without complicati on Hypertensive disorder 38 581697 I10 stable Systolic murmur 19621525 R01.1 known [id number] Jos Mirza [facility] Internal Medicine [address] [facility] [address] 10/18/2019 15:12:37 10/18/2019 15:51:40 Type 2 diabetes mellitus 23915345 E11.9 A1C is 6.6 up from 6.4 stable Osteomyelitis 54511159 M 86.9 ongoing treatment of left foot and is having leaking daily so hole is still present has a silver alginate dressing applied daily but this was stopped as it was too occlusive this has been ongoing for 1 year had some more work done on his 3rd left toe has been starte don his abx Hypertensive disorder 38 666809 I10 BP well controlled Started doxazosin 2 mg by nephrology [id number] MANUEL BILLS [facility] Internal Medicine [address] [facility],[place] [address] 11/16/2019 14:45:53 11/16/2019 15:29:21 Cellulitis 571345080 L03.90 resolving well healing will finish rest of 9 days of Keflex Chronic ki dney disease 934249809 N18.9 stable Neuropathy due to diabetes mellitus 303306136 E11.40 stable Hypertensive disorder 38 490482 I10 BP elevated today, mostly likely due to infection, is trending down will continue to monitor Osteomyelitis 83701355 M 86.9 discussing with specialist Type 2 chip betes mellitus 75675490 E11.21 stable [id number] Jos Mirza DO [facility] Internal Medicine [address] [facility],[place] [address] 02/01/2020 13:26:40 02/01/2020 14:04:23 Type 2 diabetes mellitus 34123420 E11.9 A1C is 6.6 again as it was last time and before up from 6.4 stable Hypertensive disorder 38 165111 I10 BP well controlled Started doxazosin 2 mg by nephrology Neuropathy due to diabetes mellitus 137216696 E11.40 cont with keeping his sugar controlled 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 5310408 K22.2 doing well with this he is asymptomat ic Gastroesop hageal reflux disease 027714941 K21.9 quiet and doing well Chronic ki dney disease 738339388 N18.9 Awaiting documentat ion from Neph Was referred to Heme/Onc likely for anemia GFR stable at 28 Osteomyelitis 56640978 M 86.9 ongoing treatment of left foot and is having leaking daily so hole is still present has a silver alginate dressing applied daily but this was stopped as it was too occlusive this has been ongoing for 1 year had some more work done on his 3rd left toe has been mino cramer his abx Iron deficiency 22350623 E61.1 noted by his other specialist told to add iron foodstuff 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 902466468 I15.8 home bps are excellent [id number] MANUEL BILLS [facility] Internal Medicine [address] [facility] [address],[place] [address] 04/16/2020 14:36:49 04/16/2020 15:22:24 Hypertensive disorder 81021870 I10 BP elevated today, mostly likely due to infection, is trending down will continue to monitor Type 2 chip betes mellitus 44124405 E11.21 stable Pruritic disorder 743577 002 L29.9 trial of steriod and antihistam ine Diabetic foot 081915742 E11.59 will try antifungal Ingrowing nail of toe of right foot 1299071575 0159210 L60.0 doing well [id number] MANUEL BILLS [facility] Internal Medicine [address] [facility],[place] [address] 04/24/2020 13:52:46 04/24/2020 14:36:15 Ingrowing nail of toe of right foot [id number] 4086429 L60.0 fu of his ingrown toe doing well on ketoconazo le Edema of l ower extremity 660507442 R60.0 will start on lasix and check BMP for CKD will also check TSH to see if related to swelling and itching will fu with possible vascular referral Chronic ki dney disease 598970149 N18.9 stable Cellulitis 993289317 L03 .90 r/o osteomyeli tis [id number] Jos Mirza DO [facility] Internal Medicine [address] [facility],[place] [address] 05/14/2020 13:27:57 05/14/2020 14:27:06 Hypertensive disorder 97843853 I10 BP well controlled Started doxazosin 2 mg by nephrology Type 2 chip betes mellitus 18284266 E11.9 A1C is 6.7 and was 6.6 again as it was last time and before up from 6.4 stable Chronic ki dney disease 416877150 N18.9 Awaiting documentat ion from Neph Was referred to Heme/Onc likely for anemia of chronic ds GFR stable at 28 still has creat elevated followed by dr duran Osteomyelitis 23814707 M 86.9 ongoing treatment of left foot and is having noted improvemen t and near resolution Neuropathy due to diabetes mellitus 001355771 E11.40 cont with keeping his sugar controlled he does have signif loss of sensation bilat Edema of lower leg 25105 7004 R60.0 relates that he is much improved and is going to use the furosemide on a prn [id number] [facility] [address] [facility],[place] [address] 08/15/2020 13:32:58 08/15/2020 14:28:58 Chronic kidney disease 802688423 N18.9 Awaiting documentat ion from Neph which has still not come dr duran at Was referred to Heme/Onc likely for anemia of chronic ds GFR stable at 28 still has creat elevated at 2.1 but is slowly getting better followed by dr duran Type 2 chip betes mellitus 25099629 E11.9 A1C is 6.5 was 6.7 and was 6.6 again as it was last time and before up from 6.4 stable Hypertensive disorder 38 411231 I10 BP well controlled HE WILL RESCHEDULE APPT IN 1 MONTH AND BRING IN HOME READINGS TO GET SCANNED has been elevated at dr dino bp 133 / 63 he has signif white coat hypertensi on nifedipine by nephrology [id number] [facility] [address] [facility],[place] [address] 09/21/2020 14:24:25 09/21/2020 15:24:14 Hypertensive disorder 71384565 I10 BP well controlled HE WILL RESCHEDULE APPT IN 1 MONTH AND BRING IN HOME READINGS TO GET SCANNED has been elevated at dr dino bp 133 / 63 he has signif white coat hypertensi on nifedipine by nephrology Type 2 chip betes mellitus 53912863 E11.9 A1C is 6.5 was 6.7 and was 6.6 again as it was last time and before up from 6.4 stable Chronic ki dney disease 076737289 N18.9 Awaiting documentat ion from Neph which has still not come dr duran at Was referred to Heme/Onc likely for anemia of chronic ds GFR stable at 28 still has creat elevated at 1.99 but is slowly getting better followed by dr duran 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 181641358 I15.8 home bps are excellent [id number] MANUEL BILLS [facility] Internal Medicine [address] [facility] [address],[place] [address] 12/17/2020 14:52:24 12/17/2020 15:31:42 Hypertensive disorder 30320993 I10 BP elevated today, mostly likely due to infection, is trending down will continue to monitor elevated in doctor's offices usually fine at home Osteomyelitis 79127703 M 86.9 discussing with specialist has fu in 4 weeks 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 stable Type 2 chip betes mellitus 78647156 E11.21 stable [id number] Jos Mirza DO [facility] [address] [facility] [address],[place], [place] 7 01/16/2021 13:51:42 01/16/2021 15:12:45 Type 2 diabetes mellitus 18074187 E11.9 A1C is still 6.5 and prior 6.5 was 6.7 and was 6.6 again as it was last time and before up from 6.4 stable Hypertensive disorder 38 383394 I10 BP well controlled HE WILL RESCHEDULE APPT IN 1 MONTH AND BRING IN HOME READINGS TO GET SCANNED has been elevated at dr dino bp 133 / 63 he has signif white coat hypertensi on nifedipine by nephrology Chronic ki dney disease 160547790 N18.9 Awaiting documentat ion from Neph which has still not come dr duran at Was referred to Heme/Onc likely for anemia of chronic ds GFR stable at 28 still has creat elevated at 1.9 but is slowly getting better followed by dr duran Neuropathy due to diabetes mellitus 603552999 E11.40 cont with keeping his sugar controlled he does have signif loss of sensation bilat Osteomyelitis 14446963 M 86.9 ongoing treatment of left foot and is having noted improvemen t and near resolution [id number] Jos Mirza DO [facility] [address] [facility] [address] [place] [address] 04/16/2021 09:51:13 04/16/2021 15:08:26 Active or passive immunization 841077041 Z23 utd Adult heal th examination 117716521 Z00.00 cont to follow up with wound care drs and his bp jesse to have follow up with jitney driver for her hammertoe [id number] MANUEL BILLS [facility] Internal Medicine [address] [facility],[place] [address] 05/13/2021 09:53:26 05/13/2021 13:58:59 Hypertensive disorder 14148394 I10 stable at home, no medical interventi on needed 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 749629889 I15.8 stable, has high BP in clinical settings, good at home Pre-surger y evaluation 256561504 Z01.818 The patient was seen in the office today for pre-op evaluation . All medical conditions on patient's problem list were addressed and are currently stable, no interventi on needed at this time. Based on history and physical performed, the patient is cleared for surgery. Chronic ki dney disease 274163945 N18.9 stablerece nt visit with nephrologi st cleared patient [id number] MANUEL BILLS [facility] Internal Medicine [address] [facility],[place] [place] [facility] [address] 07/22/2021 13:43:25 07/23/2021 15:43:08 Clostridioides difficile infection 591264714 A04.72 resolved Hypertensive disorder 38 004977 I10 stable at home, no medical interventi on needed [id number] Jos Mirza DO [facility] Internal Medicine [address] [facility],[place] [address] 08/21/2021 09:25:46 08/21/2021 13:55:05 Hypertensive disorder 22194332 I10 BP well controlled bp has been goodbp is now running 110/60s nifedipine by nephrology Neuropathy due to diabetes mellitus 247738759 E11.40 cont with keeping his sugar controlled he does have signif loss of sensation bilat Osteomyelitis 10072277 M 86.9 now resolved doing wellsome discomfort around the callous areahas been scraping the callous himself Type 2 chip betes mellitus 90912818 E11.9 A1C is still 6.6 and wasw 6.5 and prior 6.5 was 6.7 and was 6.6 again as it was last time and before up from 6.4 stable [id number] MANUEL BILLS [facility] Internal Medicine [address] [facility] [address],[place] [address] 06/17/2022 11:49:05 06/18/2022 09:29:55 COVID-19 576687766 U07.1 will adjust steriod dennis to prednisone start cough suppressan tthe patient will also increase food intake [id number] Jos Mirza DO [facility] Internal Medicine [address] [facility] [address],[place] [facility] [address] 07/25/2022 13:22:11 07/25/2022 16:19:09 Active or passive immunization 034850825 Z23 utd Adult heal th examination 053495216 Z00.00 cont to follow up with wound care drs and his bp jesse to have follow up with jitney driver for her hammertoe Neuropathy due to diabetes mellitus 136048027 E11.40 cont with keeping his sugar controlled he does have signif loss of sensation bilat Osteomyelitis 64181751 M 86.9 now resolved doing wellsome discomfort around the callous areahas been scraping the callous himself Type 2 chip betes mellitus 77255089 E11.9 A1C is now up to 7.5 but he just lost 20lbs so he will be lower next 6.6 and was 6.5 and prior 6.5 was 6.7 and was 6.6 again as it was last time and before up from 6.4 stable Advance care planning 71 6745508 Z71.89 utd Hypertensive disorder 38 592645 I10 BP well controlled bp has been goodbp is now running 110/60s nifedipine by nephrology Gastroesop hageal reflux disease 050254924 K21.9 quiet and doing well Ulcer of toe 483733621 L 97.509 will need insert and sneaker [id number] Jos Mirza DO [facility] Internal Medicine [address] [facility] [address],[place] [address] 12/01/2022 10:22:12 12/01/2022 11:29:49 Type 2 diabetes mellitus 78202910 E11.9 A1C is now at 6.7 but he lost 20lbs 6.6 and was 6.5 and prior 6.5 was 6.7 and was 6.6 again as it was last time and before up from 6.4 stable Hypertensive disorder 38 116833 I10 BP well controlled bp has been goodbp is now running 110/60s nifedipine by nephrology Aortic jaime nosis, non-rheumatic 295694778 I35.0 has an upcoming echo Bilateral lower leg edema 231041279 R60.0 this is prob from the nifedipine [id number] MANUEL BILLS [facility] Internal Medicine [address],[place] [address] 03/24/2023 09:38:11 03/24/2023 13:57:28 Essential hypertension 07925580 I10 medication adjusted in chartneeds new scripts for the metoprolol and nifedipine Achalasia 65125748 K22.0 having more issues with itno effect with his recent dilation Type 2 chip betes mellitus 27477420 E11.9 stableagre ed to endo consult for diabetic education Aspiration pneumonia 422 893935 J69.0 will set up with lab work [id number] Jos Mirza DO [facility] Internal Medicine [address] [facility] [address],[place] [address] 08/14/2023 14:01:17 08/14/2023 15:09:45 Essential hypertension 96648832 I10 has been stable no issues Hypertensive disorder 38 183669 I10 BP well controlled bp has been goodbp is now running 110/60s nifedipine by nephrology Neuropathy due to diabetes mellitus 571441082 E11.40 cont with keeping his sugar controlled he does have signif loss of sensation bilat a1c is 6.1 Type 2 chip betes mellitus 81426084 E11.9 A1C is now at 6.1 was 6.7 (but he lost 30lbs ) 6.6 and was 6.5 and prior 6.5 was 6.7 and was 6.6 again as it was last time and before up from 6.4 stable Aspiration pneumonia 422 211080 J69.0 quiet and reolved Chronic ki dney disease 528431823 N18.9 Awaiting documentat ion from Neph which has still not come dr duran at Was referred to Heme/Onc likely for anemia of chronic ds GFR stable at 28 still has creat elevated at 1.9 but is slowly getting better followed by dr duran Ulcer of foot 05370192 L 97.509 followed by wound nurse and podiatryco nt to use doxycyclin e Cataract d ue to diabetes mellitus type 2 088488543 E11.36 we will give him a pre op today [id number] MANUEL BILLS [facility] Internal Medicine [address] [facility],[place] [address] 09/04/2023 15:01:17 09/04/2023 16:06:40 Amputated big toe 147361141 Z89.411 stable Osteomyeli tis of right foot 6618596596 734973 M86.011 stable [id number] Jos Mirza [facility] Internal Medicine [address] [facility] [address], [place] [address] 12/11/2023 13:35:43 12/11/2023 15:05:49 Depression screening 933589063 Z13.31 SCREENING NEGATIVE Hypertensive disorder 38 877955 I10 BP well controlled bp has been goodbp is now running 110/60s nifedipine by nephrology Type 2 chip betes mellitus 58896848 E11.9 A1C is now at 6.1 was 6.7 (but he lost 30lbs ) 6.6 and was 6.5 and prior 6.5 was 6.7 and was 6.6 again as it was last time and before up from 6.4 stable Neuropathy due to diabetes mellitus 642434480 E11.40 cont with keeping his sugar controlled he does have signif loss of sensation bilat a1c is 6.1 Aortic jaime nosis, non-rheumatic 376882667 I35.0 has an upcoming echo [id number] Jos Mirza [facility] Internal Medicine [address] [facility],[place] [address] 01/12/2024 13:52:17 01/12/2024 14:49:17 Adult health examination 186289204 Z00.00 cont to follow up with wound care drs and his bp jesse to have follow up with jitney driver for her savageertoe Screening for cardiovascular system disease 563478238 Z13.6 no symptoms noted needs cholestero l ordered Screening for malignant neoplasm of colon 396303214 Z12.11 had 2 yrs ago Depression screening 171 238181 Z13.31 SCREENING NEGATIVE Chronic regurgitation 84 871456 R11.10 has had egd x 3 and seen multiple specialist s Type 2 chip betes mellitus 61053187 E11.9 A1C is now at 6.0, 6.1 was 6.7 (but he lost 30lbs ) 6.6 and was 6.5 and prior 6.5 was 6.7 and was 6.6 again as it was last time and before up from 6.4 stable [id number] MANUEL BILLS [facility] Internal Medicine [address] [facility] [address],[place] [address] 03/08/2024 10:53:58 03/08/2024 11:55:56 Gastroesophageal reflux disease 296216460 K21.00 suggested prilosec for reflux Abnormal weight loss 267 362112 R63.4 agreed to lab work [id number] MANUEL BILLS [facility] Internal Medicine [address] [facility] [address],[place] [address] 04/26/2024 09:25:17 04/26/2024 14:54:21 Fall R29.6 will set up with PT Physical deconditioning 9617153769 9102 R68.89 will set up with PT Pain of le ft knee joint 2159800111 29190 M25.562 will set up with XR Acute hyperkalemia 38108 00 E87.5 will set up with with lab work [id number] MANUEL BILLS [facility] Internal Medicine [address] [facility],[place] [address] 06/10/2024 13:52:26 06/10/2024 14:45:37 Right inguinal hernia 515110670 K40.90 will set up with US abdomen/gr [...] - MEDICARE ADVANTAGE PLAN (MEDICARE REPLACEMENT HMO) [id number] 1 Karthikeyan Lazo . [id number] Karthikeyan 01/12/2024 1 [employer] - MEDICARE ADVANTAGE PLAN (MEDICARE REPLACEMENT HMO) [id number] 1 Karthikeyan Horton Sr. [id number] 03/08/2024 1 [employer] - MEDICARE ADVANTAGE PLAN (MEDICARE REPLACEMENT HMO) [id number] 1 Karthikeyan Horton Sr. [id number] 04/26/2024 1 [employer] - MEDICARE ADVANTAGE PLAN (MEDICARE REPLACEMENT HMO) [id number] 1 Karthikeyan Horton Sr. [id number] 06/10/2024 1 [employer] - MEDICARE ADVANTAGE PLAN (MEDICARE REPLACEMENT HMO) [id number] 1 Karthikeyan Horton Sr. [id number] Notes Date Note Type Note Provider Name [...] will need to refer him back to [facility] have kept his wegiht below 200states that he is feeling well wxcept for his vision still having issue with cataractand his retina is ok after 2 surgeries Jos Mirza, DO [address] [facility], [place], [address], [facility] 12/11/2023 14:18:49 4 text/htm l [...] with constant regurgitation Jos Mirza, DO [address] [facility], [place], [address], [facility] 01/12/2024 14:21:53 4 text/htm l [...] new orthoticssuggested probable issues MANUEL BILLS [address] [place], [address], [facility] 03/08/2024 11:36:52 4 text/htm l f/u leg issue after fall the patient reports that he noted his neuropathy was the probable causethe patient reports that he was in the [facility] onc waiting room with his , [...] fu afterwards with patient MANUEL BILLS [address] [place], [address], [facility] 04/26/2024 10:04:32 5 text/htm l [...] itwill discuss options afterwards MANUEL BILLS [address] [place], [address], [facility] 06/10/2024 14:32:23
--- OUTSIDE RECORDS SUMMARY | 2024-07-13 08:53 | XMS_ITS | Patient Health Record ---
[facility] Organization [facility] Address [address] [place] [address] Care Team Providers Care Pullboat Engineer Name Role Phone Jos Mirza MD Primary Care Provider Mic Thibodeaux Unavailable [phone] Allergies Allergen (clinical drug ingredient) Drug/Non Drug [...] Problem Acquired hammer toe of right foot (805550921175581 5) Other hammer toe(s) (acquired), right foot (M20.41) Active confirmed Response to treatment,Im provement Problem Acquired hammer toe of left foot (900649753530459 3) Other hammer toe(s) (acquired), left foot (M20.42) Active confirmed Response to treatment,Im provement Problem Polyneuropathy due to type 2 diabetes mellitus (357006723) Type 2 diabetes mellitus with diabetic polyneuropathy (E11.42) Active confirmed Problem Ulcer of toe of left foot (disorder) (310480073940196 02) Skin ulcer of toe of left foot, limited to breakdown of skin (L97.521) Active confirmed Response to treatment improving Problem 070435106 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 confirmed Response to treatment, improving, Unresolved Vital Signs Blood pressure diastolic 70 mm Hg 04/19/2024 Height 6 ft 3 in in 04/19/2024 Blood pressure systolic 120 mm Hg 04/19/2024 Weight 195 lbs 04/19/2024 BMI 24.37 kg/m2 04/19/2024 Procedures Procedure Date Ordered Date Performed Result Body Sit e 41128-HIPCTEA NAIL, 1-5 08/11/2023 N/A 62807-KCVYZNG SKIN/TISSUE 08/11/2023 N/A 35229-JZGX SKIN LESIONS, 2 TO 4 08/11/2023 N/A P7084-JGDUOBUI DYSTROPHIC NAILS ANY # 08/11/2023 N/A 71176-RBOZHVO NAIL, 6 OR MORE 11/20/2023 N/A 37462-LKZRBIT SKIN/TISSUE 11/20/2023 N/A 17079-XTJR SKIN LESIONS, OVER 4 11/20/2023 N/A 33188-LAHOFME NAIL, 6 OR MORE 02/02/2024 N/A 00009-DXXTEGM SKIN/TISSUE 02/02/2024 N/A 13033-CKIF SKIN LESIONS, 2 TO 4 02/02/2024 N/A 25019-RGPJPBY NAIL, 6 OR MORE 04/19/2024 N/A 80683- Debride <25 sq cm 04/19/2024 N/A 09988-HWWCWZX SKIN/TISSUE 04/19/2024 N/A 46813-TOOL SKIN LESIONS, 2 TO 4 04/19/2024 N/A Encounters Encounter Location Date Provider Diagnosis [facility] [address] [address] 08/11/2023 Mic Mo Type 2 diabetes mellitus with diabetic polyneuropathy E11.42 ; Tinea unguium B35.1 and Neuropathic ulcer of left heel with fat layer exposed L97.422 [facility] [address] [address] 11/20/2023 Mic Mo Type 2 diabetes mellitus with diabetic polyneuropathy E11.42 ; Tinea unguium B35.1 ; Neuropathic ulcer of left foot with fat layer exposed L97.522 ; Other hammer toe(s) (acquired), right foot M20.41 and Other hammer toe(s) (acquired), left foot M20.[address] [address] 02/02/2024 Mic Mo Type 2 diabetes mellitus with diabetic polyneuropathy E11.42 ; Tinea unguium B35.1 and Neuropathic ulcer of left foot with fat layer exposed L97.[address] [address] 04/19/2024 Mic Mo Type 2 diabetes mellitus with diabetic polyneuropathy E11.42 ; Tinea unguium B35.1 ; Neuropathic ulcer of left foot with fat layer exposed L97.522 ; Other hammer toe(s) (acquired), right foot M20.41 ; Other hammer toe(s) (acquired), left foot M20.42 and Skin ulcer of toe of left foot, limited to breakdown of skin L97.[address] [address] 07/31/2023 Mic Mo Assessments Encounter Date Diagnosis [...] X ray : Foot, left 3V 05/26/2023 90754-ZPECWSJ NAIL, 6 OR MORE 05/26/2023 63728-HVUDJOK NAIL, 6 OR MORE 11/20/2023 81149-KIOJXKX NAIL, 6 OR MORE 02/02/2024 71825-ZZNAZNK NAIL, 6 OR MORE 04/19/2024 12336-HYPTIEY NAIL, 6 OR MORE 10/16/2017 84144-RUBUXNX NAIL, 6 OR MORE 12/22/2017 20679-XHBGVLT NAIL, 6 OR MORE 05/07/2018 88496-NRGPNQU NAIL, 6 OR MORE 07/16/2018 55035-YPEETFY NAIL, 6 OR MORE 02/23/2018 70568-QGILFZR NAIL, 6 OR MORE 09/24/2018 25229-VKMMKFT NAIL, 6 OR MORE 12/10/2018 35608-LEBVWRX NAIL, 6 OR MORE 03/01/2019 39039-XJWYXBU NAIL, 6 OR MORE 05/31/2019 01963-YAJYPEF NAIL, 6 OR MORE 09/27/2019 95886-YNAQISD NAIL, 6 OR MORE 01/03/2020 14842-OTZZNYH NAIL, 6 OR MORE 03/30/2020 31016-SDZPQAQ NAIL, 6 OR MORE 06/15/2020 48775-SPBCMYT NAIL, 6 OR MORE 09/14/2020 76128-APIDIWV NAIL, 6 OR MORE 04/23/2021 54112-XQXHRYZ NAIL, 6 OR MORE 08/30/2021 82350-GPHGEMT NAIL, 6 OR MORE 11/15/2021 85807-QWCWCQG NAIL, 6 OR MORE 02/07/2022 38489-UFZRTXT NAIL, 6 OR MORE 04/25/2022 33267-XEKRHXQ NAIL, 6 OR MORE 07/01/2022 10723-EDJOYTT NAIL, 6 OR MORE 09/02/2022 43507-PQTYBTI NAIL, 6 OR MORE 11/21/2022 52940-IBAGPRS NAIL, 6 OR MORE 01/30/2023 88204-ATCMGRC NAIL, 1-5 08/11/2023 92799- Debride <25 sq cm 05/26/2023 03149- Debride <25 sq cm 04/19/2024 82467- Debride <25 sq cm 08/08/2022 84117- Debride <25 sq cm 07/01/2022 92288- Debride <25 sq cm 04/25/2022 04445- Debride <25 sq cm 12/20/2021 44058- Debride <25 sq cm 02/10/2020 68343- Debride <25 sq cm 01/03/2020 62980-HQDVQQG SKIN/TISSUE 12/26/2019 94796-ZDFEVGZ SKIN/TISSUE 02/10/2020 81978-JKPVOXD SKIN/TISSUE 03/30/2020 70724-IFXQHOQ SKIN/TISSUE 10/10/2019 38663-XEFGSST SKIN/TISSUE 10/25/2019 50177-VXJTVRP SKIN/TISSUE 03/19/2022 71234-UYAHWXB SKIN/TISSUE 01/30/2023 36358-DMFRUQN SKIN/TISSUE 11/15/2021 87667-KHBNXMZ SKIN/TISSUE 08/30/2021 55224-DQIMGDB SKIN/TISSUE 09/10/2021 46929-LGPQNQS SKIN/TISSUE 10/01/2021 49969-AOEQMHB SKIN/TISSUE 06/15/2020 79587-YQFOMLB SKIN/TISSUE 04/19/2024 54196-DVKTNUN SKIN/TISSUE 02/02/2024 02816-UUFGKKY SKIN/TISSUE 11/20/2023 68158-YIYMNVB SKIN/TISSUE 06/25/2022 33526-PDXAJHR SKIN/TISSUE 05/26/2023 02112-KZRUPAI SKIN/TISSUE 08/11/2023 96680 I&D ABSCESS- SIMPLE,SINGLE 020 81038-CJGL SKIN LESIONS, OVER 4 10/17/19 18 50582-EKCT SKIN LESIONS, OVER 4 09/27/19 20 66921-MZDS SKIN LESIONS, OVER 4 05/31/19 20 73056-OGZW SKIN LESIONS, OVER 4 03/30/20 20 28192-GOVL SKIN LESIONS, OVER 4 01/03/20 20 11770-KRQI SKIN LESIONS, OVER 4 03/01/20 19 93301-WSCJ SKIN LESIONS, OVER 4 12/11/19 19 64758-RAVU SKIN LESIONS, OVER 4 09/25/19 19 86463-ZDSN SKIN LESIONS, OVER 4 05/07/20 18 14186-NISF SKIN LESIONS, OVER 4 07/16/19 19 25420-FWDU SKIN LESIONS, OVER 4 02/24/20 18 40826-UVNL SKIN LESIONS, OVER 4 12/23/19 18 10156-SGCM SKIN LESIONS, OVER 4 06/15/19 21 04768-FVMF SKIN LESIONS, OVER 4 04/23/20 21 27176-YTLO SKIN LESIONS, OVER 4 09/15/19 21 34129-PJSG SKIN LESIONS, OVER 4 08/31/19 22 85078-FJKS SKIN LESIONS, OVER 4 11/16/19 22 32604-EPJG SKIN LESIONS, OVER 4 09/16/20 22 70023-MGPH SKIN LESIONS, OVER 4 01/31/20 23 95077-WWER SKIN LESIONS, OVER 4 11/22/19 23 17135-GGZD SKIN LESIONS, OVER 4 09/03/19 23 91532-MDCN SKIN LESIONS, OVER 4 04/25/20 22 96044-UUVS SKIN LESIONS, OVER 4 07/01/19 23 73441-BCOA SKIN LESIONS, OVER 4 05/26/19 24 05698-HBPE SKIN LESIONS, OVER 4 11/20/19 24 71118-XDAB SKIN LESIONS, 2 TO 4 02/02/20 24 01539-FABU SKIN LESIONS, 2 TO 4 04/19/20 24 61586-AOTU SKIN LESIONS, 2 TO 4 08/11/19 24 R4337-PFWPQGGJ DYSTROPHIC NAILS ANY # 90210-Zyxfkrxif, Toes 10/25/2019 37134 - Tenotomy, open flexor 02/28/2020 20993 - Tenotomy, open flexor 09/03/2018 31169 - Tenotomy, open flexor 07/15/2022 94396 - Tenotomy, open flexor 08/15/2022 11538 - Tenotomy, open flexor 01/13/2023 51018 - Tenotomy, open flexor 07/03/2020 Next Appt Details Provider Name:Mic Mo , 07/22/2024 12:45:00 PM, [address] [facility], [place], [address], Insurance Providers Payer Name Payer Address Payer Phone Subscriber Number Group Number Insured Name Patient Relationship to Insured Coverage Start Date Coverage End Date [employer] [place] [employer]vantage [address] [place] [address] [phone] [id number] Karthikeyan Lazo Self - patient is the [...] ys 12/04/2020 [facility] - infection toe 07/10/2018 [facility] for toe infection 01/15 -01/21 [place] for toe infections 05/20/17
--- OUTSIDE RECORDS SUMMARY | 2024-07-13 08:53 | XMS_ITS | Encounter Summary ---
Author Organization [facility] Address [address] [place] [address] Phone Care Team Providers Care Chain Maker Machine Name Role Phone JuneJos laird DO Primary Care Provider [phone] Encounter Details Date Type Department Care Team (Late st Contact Info) Description 10/15/2022 Telephone [facility] [address] [place] [address] Mehnaz Lamb Social History Tobacco [...] on filedocumented in this encounter Care Teams Chain Maker Machine Relationship Specialty Start Date End Date JuneJos laird DO [address] [facility] [address] PCP - General 06/04/20 documented as of this encounter
--- OUTSIDE RECORDS SUMMARY | 2024-07-13 08:53 | XMS_ITS | Clinical Summary ---
Author Organization [facility] Address [address] [place] [address] Phone Care Team Providers Care Foundry Metallurgist Name Role Phone Jos Mirza DO Primary Care Provider [phone] Allergies Active Allergy Reactions Criticality Noted Date [...] 8:45 AM EST Office Visit Orthopedic Surgery [facility] [address] [facility] [address] [place] [address] Shay Brito DPM Chronic osteomyelitis of hindfoot, left (CMS/HCC) (Primary Dx); Follow-up exam; Ulcer of toe of right foot, limited to breakdown of skin (CMS/HCC); Ulcer of toe of left foot, with fat layer exposed (CMS/HCC) 06/06/2024 8:45 AM EST Office Visit Orthopedic Surgery [place] [address] [phone] Shay Brito DPM Chronic osteomyelitis of hindfoot, left (CMS/HCC) (Primary Dx); Follow-up exam; Ulcer of toe of left foot, with fat layer exposed (CMS/HCC) 05/09/2024 9:15 AM EST Office Visit Orthopedic Surgery [place] [address] [phone] Shay Brito DPM Chronic osteomyelitis of hindfoot, left (CMS/HCC) (Primary Dx); Foot pain, left; Ulcer of toe of left foot, with fat layer exposed (CMS/HCC); Ulcer of toe of left foot, with necrosis of bone (CMS/HCC) 04/25/2024 8:00 AM EST Office Visit Orthopedic Surgery [place] [address] [phone] Shay Brito DPM Chronic osteomyelitis of hindfoot, left (CMS/HCC) (Primary Dx); Left foot pain; Ulcer of toe of left foot, with necrosis of bone (CMS/HCC); Ulcer of toe of left foot, with fat layer exposed (CMS/HCC) 04/13/2024 9:15 AM EST Office Visit Orthopedic Surgery [facility] [address] [address] Shay Brito DPM Chronic osteomyelitis of hindfoot, [...] [employer] [place] MED[employer] ADVANTAGE Care Teams Foundry Metallurgist Relationship Specialty Start Date End Date Jos Mirza DO 6 [facility] [place], [place] PCP - General Internal Medicine 12/14/20
--- OUTSIDE RECORDS SUMMARY | 2024-07-13 08:53 | XMS_ITS | Encounter Summary ---
Author Organization [facility] Address [address] [place] [address] Care Team Providers Care Bond Writer Name Role Phone Jos Mirza DO Primary Care Provider [phone] Reason for Visit * Reason Comments Follow-up Left foot wound Encounter Details Date Type Department Care Team ([facility] st Contact Info) Description 06/29/2024 8:45 AM EST Office Visit Orthopedic Surgery - [place] [address] [phone] Shay Brito DPM [address] [address] Chronic osteomyelitis of hindfoot, left (CMS/HCC) (Primary [...] for pain silver sulfate/foam bandage ([facility]) Apply 1 Applicator topically daily. Apply daily [...] 06/29/2024 documented in this encounter Care Teams Bond Writer Relationship Specialty Start Date End Date Jos Mirza DO [address] [facility] [address] [place], [place] PCP - General Internal Medicine 12/14/20 documented as of this encounter
--- OUTSIDE RECORDS SUMMARY | 2024-07-13 08:53 | XMS_ITS | Patient Health Record ---
Author Organization [facility] Address [address] [place] [address] Care Team Providers Care Golf Player Assistant Name Role Phone Jos Mirza Primary Care [...] Problem Hypertension, unspecified type (I10) Active confirmed 02786126 Problem Esophageal stricture (K22.2) Active confirmed 29460405 Problem Regurgitation of food (R11.10) Active confirmed 392942234 Problem Other dysphagia (R13.19) Active confirmed 13035493 Problem Gastric polyp (K31.7) Active confirmed 50269088 Problem Dysphagia (R13.10) Active confirmed Dys phagia (65798157) Problem Achalasia (K22.0) Active confirmed 4556 6622 PLAN OF TREATMENT Future Test Test Name Order Date UPPER GI ENDOSCOPY BALLOOON DILATION OF ESOPH 03/11/2019 UPPER GI ENDOSCOPY BALLOOON DILATION OF ESOPH 02/17/2022 UPPER GI ENDOSCOPY 03/12/2022 Insurance Providers Payer Name Payer Address Payer Phone Subscriber Number Group Number Insured Name Patient Relationship to Insured Coverage Start Date Coverage End Date [facility] [address] [place] [phone] [id number] LUNA LAM Self - patient is the insured MEDICAL (GENERAL) HISTORY Medical History History ICD Code Type 2 diabetes mellitus, neuropathy hypertension kidney disease, stage 3 LINDA/CPAP SVT Diabetic foot infection Aortic stenosis Surgical History Surgery Date(Month/Year) Hospitalization History Reason Date(Month/Year) [facility], bone infection 2020
--- OUTSIDE RECORDS SUMMARY | 2024-07-13 08:53 | XMS_ITS | Clinical Summary ---
Author Organization [facility] Address [address] [place] [address] Care Team Providers Care Waiter/Waitress Tavern Name Role Phone Jos Mirza DO Primary Care Provider [phone] Allergies Active Allergy Reactions Criticality Noted Date [...] to complete this topic Insurance Care Teams Waiter/Waitress Tavern Relationship Specialty Start Date End Date Jos Mirza DO [address] [facility] [place] [address] PCP - General 06/04/20
--- OUTSIDE RECORDS SUMMARY | 2024-07-13 08:53 | XMS_ITS ---
Author Organization [facility] Address [address] [place] [address] Care Team Providers Care Theoretical Physics Teacher Name Role Phone Hermes MILIAN, Jos Primary Care Provider Mic Thibodeaux Unavailable [phone] Allergies Allergen (clinical drug ingredient) Drug/Non Drug [...] Ulcer of toe of left foot (disorder) ([id number] 6471516) Skin ulcer of toe of left foot, limited to breakdown of skin (L97.521) Active confirmed Response to treatment improving Vital Signs Height 6 ft 3 in in 04/19/2024 Weight 195 lbs 04/19/2024 BMI 24.37 kg/m2 04/19/2024 Blood pressure systolic 120 mm Hg 04/19/20 24 Blood pressure diastolic 70 mm Hg 024 Procedures Procedure Date Ordered Date Performed Result Body Sit e 22491-RZYXHLI NAIL, 6 OR MORE 04/19/2024 N/A 67522- Debride <25 sq cm 04/19/2024 N/A 90173-EFTCTHZ SKIN/TISSUE 04/19/2024 N/A 01252-ZRRK SKIN LESIONS, 2 TO 4 04/19/2024 N/A Encounters Encounter Location Date Provider Diagnosis [facility] [place] [address] [place] [address] 04/19/2024 Mic Mo Type 2 diabetes mellitus [...] INSTRUCTIONS.pdf) Pending Test Test Name Order Date 22460-PSGDCUE NAIL, 6 OR MORE 04/19/2024 48181- Debride <25 sq cm 04/19/2024 40392-HGQAZAB SKIN/TISSUE 04/19/2024 97401-KWMK SKIN LESIONS, 2 TO 4 04/19/20 24 Next Appt Details Follow Up: prn, Reason: Provider Name:Mic Mo , 07/22/2024 12:45:00 PM, [address] [place], [address], Procedure Notes * Category Sub-Category Detail Notes [...] use of a nail nipper and/or dremel-type laboratory apparatus glass grinder, to a more viable healthy nail [...] to maintain effectiveness in symptomatic relief - 78250 Debride skin< 25 sq cm Open wound [...] of the wound post debridement is stable (80541) Debride skin and subQ Open wound Physician [...] of the wound post debridement is stable (78491) Keratoma Treatment Parring or Cutting o f Benign Hyperkeratotic Lesion(s) (-56) 2-4 Lesions - The Benign hyperkeratotic lesions, ( 4) in total, locations as stated and described in exam, were pared, and/or cut utilizing a sterile 15 blade, tissue nippers, and/or power [employer] instrumentation - 26844 Progress Notes * Karthikeyan LAM ADOB: 1 (83 yo M)Acc No.[id number]:04/19/2024 Progress Note Patient:?Karthikeyan LAM A Provider:?Mic Mo DPM :1940???Age:83 Y???Sex:Male Lex e:04/19/2024 Address:[address] [place], [place] [address] Pcp:Jos Mirza MD Subjective: * Chief Complaints: [...] surgical debridement. 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 3.?Skin ulcer of toe of left foot, limited to breakdown of skin?Procedure: 65862- Debride <25 sq cm Notes: Patient Educated [...] use of a nail nipper and/or dremel-type laboratory apparatus glass grinder, to a more viable healthy nail [...] to maintain effectiveness in symptomatic relief - 29062.?Debride skin and subQ:?Open wound?Physician of record performed [...] of the wound post debridement is stable (54717).?Debride skin< 25 sq cm:?Open wound?NEUROPATHY: Physician of [...] of the wound post debridement is stable (22643).?Keratoma Treatment:?Parring or Cutting of Benign Hyperkeratotic Lesion(s)?(-56) 2-4 Lesions - The Benign hyperkeratotic lesions, ( 4) in total, locations as stated and described in exam, were pared, and/or cut utilizing a sterile 15 blade, tissue nippers, and/or power dremel instrumentation - 96614.? * Procedure Codes:?56623 DEBRI DE SKIN/TISSUE, Modifiers: XS 36956 ACTIVE WOUND CARE/20 CM OR <, Modifiers: XS 70992 DEBRIDE NAIL, 6 OR MORE, Modifiers: XS 51125 TRIM SKIN LESIONS, 2 TO 4, Modifiers: [...] events including amputation, CONT Referral to [facility] Wound Care Center due to pedal risk of limb/life.? * Follow Up:?prn * Images: * Sign off status: Completed true * Provider:?Mic Mo DPM Date:?2023 Generated for Nighat neely/Duncan/Melo on:?07/13/2024 08:53 AM EST History and Physical Notes * [...] surgical debridement. Regular follow up with [facility] Wound Care clinic with Silver [facility] to wounds At Risk footcare Pt States Last PCP Visit: Date: 01/12/2024 [facility] States , Dennis, is not doing well [...]
--- NOTE | 2024-07-13 08:54 | CA_ITS ---
Transthoracic Echocardiogram Patient (Last, First, Middle): Karthikeyan Lazo A Gender: Male Date of : 1940 Age: 83 Procedure Date: 07/13/2024 Procedure Type: Transthoracic Echocardiogram Location: OP Height: 190.5 cm Weight: 83.92 kg BSA: 2.12 m2 Heart Rate: 52 bpm BP: 202 / 100 mmHg Hydroelectric Plant Maintainer: RE Referring MD: Issa Degroot MD Symptoms: I35.0 - Nonrheumatic aortic (valve) stenosis Study Quality: Fair ECG Rhythm: Bradycardia Conclusions: - The left ventricular systolic function is normal. The calculated ejection fraction is 69% by biplane method. - Evidence suggests grade II (moderate) diastolic dysfunction. - There is moderate aortic valve stenosis. - There is moderate mitral annular calcification. Findings Left Ventricle Normal left ventricular cavity size. There is normal left ventricular wall thickness. The left ventricular systolic function is normal. The calculated ejection fraction is 69% by biplane method. There is no evidence of regional wall motion abnormalities. Evidence suggests grade II (moderate) diastolic dysfunction. Right Ventricle Normal right ventricular cavity size and systolic function. Atria The left atrium is moderately dilated. The right atrium is normal in size. Aortic Valve The aortic valve was not well visualized. There is moderate aortic valve stenosis. The peak aortic velocity is 3.46 m/s with a calculated peak gradient of 48 mmHg. The mean gradient is 28 mmHg. The aortic valve area is 1.30 cm2. There is no aortic valve regurgitation. Mitral Valve There is moderate mitral annular calcification. There is mild mitral valve regurgitation. There is no mitral valve stenosis. Pulmonic Valve The pulmonic valve is likely normal. Tricuspid Valve There is mild tricuspid valve regurgitation. There is no evidence of pulmonary hypertension. Great Vessels The asc aorta is normal in size. Venous The inferior vena cava is normal in size and collapses greater than 50% with inspiration. Pericardium/Pleural There is no evidence of pericardial effusion. Prior Study Comparison No significant change compared to prior study dated: 12/10/2022. Measurements 2D Linear Measurements IVSd: 1.01 0.6-0.9/0.6-1.0 cm LVIDd: 4.94 3.9-5.3/4.2-5.9 cm LVIDd Index: 2.33 2.4-3.2/2.2-3.1 cm/m2 LVIDs: 2.90 2.0-3.6 cm LVPWd: 1.20 0.7-1.1 cm LA Diam: 4.40 2.7-3.8/3.0-4.0 cm LAIDs Index: 2.08 1.5-2.3 cm/m2 LV Mass: 254.77 67-162/88-224 g LV Mass Index: 120.17 43-95/49-115 g/m2 LVOT Diam: 2.30 3.0+(-)1.3 cm 2D Systolic Function EF 4C: 66.70 >55% EF 2C: 69.50 >55% EF BiP: 69.30 >55% Mitral Valve MV VTI: 0.54 MV Pk Kareem: 1.44 MV Mn Kraeem: 0.79 MV Pk Grad: 8.00 MV Mn Grad: 3.00 MV Pk E: 1.43 MV PK A: 1.20 MV Decel Time: 327.00 E/A: 1.20 E'Lateral: 7.18 E'Medial: 6.96 E/E' Med: 20.50 E/E' Lat: 19.90 PHT: 96.00 MVA PHT: 2.29 MVA Continuity: 2.26 Decel Woods: 4.37 Aortic Valve AoV Pk Kareem: 3.46 AoV Mn Kareem: 2.49 AoV VTI: 0.94 AoV Pk Grad: 48.00 Aov Mn Grad: 28.00 MANI Cont.VTI: 1.30 LVOT LVOT Pk Kareem: 1.09 LVOT Mn Kareem: 0.74 LVOT VTI: 0.29 LVOT Pk Grad: 5.00 LVOT Mn Grad: 3.00 LVOT Diam: 2.30 LVOT Area: 4.15 Diastolic Function MV Pk E: 1.43 MV Pk A: 1.20 E/A: 1.20 E'Medial: 6.96 E/E' Med: 20.50 E' Laterial: 7.18 E/E' Lat: 19.90 Right Ventricle TAPSE (mm): 30.10 TVS' Kareem: 12.10 Tricuspid Valve TR Pk Kareem: 2.65 TR Pk Grad: 28.00 RA Press: 3.00 RVSP: 31.00 Great Vessels Aorta Sinus of Valsalva: 4.00 2.0-3.5 cm Ao Asc: 3.20 2.1-3.4 cm Pulmonary Valve PV Pk Kareem: 0.98 Peak PV Grad: 4.00 Updated in Other Vendor System with Status of Final Bhavesh Steven MD electronically signed on 07/13/2024 12:43:38 PM with status of Final
--- OUTSIDE RECORDS SUMMARY | 2024-07-13 08:54 | XMS_ITS ---
Author Organization [facility] Address [address] [place] [address] Care Team Providers Care Research Management Associate Name Role Phone Jos Mirza Primary Care Provider Too Torres Jr REASON FOR VISIT update on being on medication Encounters Encounter Location Date Provider Diagnosis [facility] [address] [place] [address] 01/20/2023 Too Casey Jr PLAN OF TREATMENT No Information
--- OUTSIDE RECORDS SUMMARY | 2024-07-13 08:54 | XMS_ITS ---
Author Organization [facility] Address [address] [place] [address] Care Team Providers Care Certified Rehabilitation Counselor Name Role Phone Hermes MILIAN, Jos Primary Care Provider UnavailMic Howe Unavailable [phone] REASON FOR VISIT for sooner apt Encounters Encounter Location Date Provider Diagnosis [address] [address] 01/05/2024 Mic Mo Plan Of Treatment Next Appt Details Provider Name:Mic Mo , 07/22/2024 12:45:00 PM, [address] [place] [address], [phone], Progress Notes * Karthikeyan LAM ADOB: (83 yo M)Acc No.[id number]:01/05/2024 Progress Note Patient:?Karthikeyan LAM Provider:?Mic Mo DPM :1940???Age:83 Y???Sex:Male Lex e:01/05/2024 Address:[address] [place] [address] Pcp:Jos Mirza MD Subjective: * Chief Complaints: [...]
== END ==
LOC: HO.CARD 08:48
PROVIDERS: PCP Internal Medicine; Visit Provider Internal Medicine Cardiovascular Disease
DX: I35.0 Nonrheumatic aortic (valve) stenosis (principal)
CPT/HCPCS: 93306

== ENCOUNTER → 2024-07-13 08:54 | Outpatient (BNV) | payer MEDICARE, SELFPAY | PROVIDERS: PCP Internal Medicine; Visit Provider Internal Medicine | DX: I35.0 Nonrheumatic aortic (valve) stenosis (principal) | CPT/HCPCS: 93306 ==

== ENCOUNTER → 2024-07-20 09:49 | Outpatient (BNVA) | payer MEDICARE, SELFPAY | PROVIDERS: PCP Internal Medicine ==

== ENCOUNTER 2024-07-22 09:46 | Outpatient (REF) | payer MEDICARE, SELFPAY ==
--- OUTSIDE RECORDS SUMMARY | 2024-07-22 10:38 | XMS_ITS ---
[facility] Address [address] [place] [address] Care Team Providers Care Parts Salesperson Name Role Phone Hermes MILIAN, Jos Primary Care Provider Mic Thibodeaux Unavailable [phone] Allergies Allergen (clinical drug ingredient) Drug/Non Drug [...] Ordered Date Performed Result Body Sit e 23781-MBYUFFR NAIL, 6 OR MORE 02/02/2024 N/A 39633-MHOLZMP SKIN/TISSUE 02/02/2024 N/A 60705-UDAA SKIN LESIONS, 2 TO 4 02/02/2024 N/A Encounters Encounter Location Date Provider Diagnosis [facility] [place] [address] [place] [address] 02/02/2024 Mic Mo Type 2 diabetes mellitus [...] INSTRUCTIONS.pdf) Pending Test Test Name Order Date [id number] NAIL, 6 OR MORE 02/02/2024 53801-ITZLMSS SKIN/TISSUE 02/02/2024 47436-PMGD SKIN LESIONS, 2 TO 4 02/02/20 24 Next Appt Details Follow Up: prn, Reason: Provider Name:Mic Mo , 07/22/2024 12:45:00 PM, [address] [place] [address], [phone], Procedure Notes * Category Sub-Category Detail Notes Debride Nail 6-10 Nail debridement Performance o f this nail treatment by a nonprofessional would put this patients foot and overall health at risk. Therefore, nail debridement was performed extensively to reduce/remove overall nail length, girth, thickness, subungual debris, and necrotic tissue, by manual and/or electrical means through the use of a nail nipper and/or dremel-type thread grinder tool, to a more viable healthy nail plate or bed tissue 6-10. Silver nitrate used for any petechial bleeding as necessary. Definitive antifungal treatment options have been reviewed and discussed with the patient. The patient chooses, no pharmaceutical tx - [address]37 Debride skin and subQ Open wound Physician [...] of the wound post debridement is stable (08287) Keratoma Treatment Parring or Cutting o f Benign Hyperkeratotic Lesion(s) (-56) 2-4 Lesions - The Benign hyperkeratotic lesions, as described above were pared, and/or cut utilizing a sterile 15 blade, tissue nippers, and/or dremel - 97334 Progress Notes * Karthikeyan LAM ADOB: [birth year] (83 yo M)Acc No.[id number]:02/02/2024 Progress Note Patient:?Karthikeyan Lam A Provider:?Mic Mo DPM :1940???Age:83 Y???Sex:Male Lex e:02/02/2024 Address:[address] [place], [place] [id number] Pcp:Jos Mirza MD Subjective: * Chief Complaints: [...] * Surgical History:?R eye surg latoya Carm[facility] 2nd hammer toe 05/31/2021endoscopy 03/15,05/15Right 2nd toe for osteo 07/17/23torn retna cataract surgery amputation, 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 Silver nitrate used for any petechial bleeding as necessary. Definitive antifungal treatment options have been reviewed and discussed with the patient. The patient chooses, no pharmaceutical tx - 35829.?Debride skin and subQ:?Open wound?Physician of record performed [...] of the wound post debridement is stable (00677).?Keratoma Treatment:?Parring or Cutting of Benign Hyperkeratotic Lesion(s)?(-56) 2-4 Lesions - The Benign hyperkeratotic lesions, as described above were pared, and/or cut utilizing a sterile 15 blade, tissue nippers, and/or dremel - 45343.? * Procedure Codes:?73633 DEBRI DE SKIN/TISSUE, Modifiers: XS 71943 DEBRIDE NAIL, 6 OR MORE, Modifiers: XS 49192 TRIM SKIN LESIONS, 2 TO 4, Modifiers: [...] Mo DPM Date:?2023 Generated for Nighat neely/Duncan/Melo on:?07/22/2024 10:37 AM EST History and Physical Notes * [...]
--- OUTSIDE RECORDS SUMMARY | 2024-07-22 10:38 | XMS_ITS | Encounter Summary ---
Author Organization [facility] Address [address] [place] [address] Phone Care Team Providers Care Apprise Counselor Name Role Phone JuneJos laird DO Primary Care Provider [phone] Encounter Details Date Type Department Care Team (Late st Contact Info) Description 10/15/2022 Telephone [facility] [address] [place] [address] Mehnaz Lamb Social History Tobacco [...] on filedocumented in this encounter Care Teams Apprise Counselor Relationship Specialty Start Date End Date JuneJos laird DO [address] [facility] [id number] PCP - General 06/04/20 documented as of this encounter
--- OUTSIDE RECORDS SUMMARY | 2024-07-22 10:38 | XMS_ITS | Data Portability ---
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 Lab CMP, serum or plasma 2023 024 [email or web address] [facility] (Centralized Electronic Ordering - All Locations), Patient Can Go To The Location Of Their Choice, [address] 12/03/202 4 09:56:45 TSH + free T4, serum 2023 [facility], [address] [place] [address], [address], 4 08:38:19 CMP, serum or plasma 2023 [facility], [address] [place] [address], [address], 4 00:41:30 CBC w/ auto diff 2023 [facility], [address] [place] [address], [address], 4 11:33:00 iron + TIBC + ferritin, serum 2023 [facility], [address] [place] [address], [address], 4 11:33:00 vitamin B12 + folate, serum or blood 2023 [facility], [address] [place] [address], [address], 4 11:33:00 magnesium, serum or plasma 2023 [facility], [address] [place] [address], [address], 4 11:33:00 zinc, blood 2023 [facility], [address] [place] [address], [address], 4 08:51:15 amylase + lipase, serum 2023 [facility], [address] [place] [address], [address], 4 11:33:00 C-reactive protein, quantitati ve, serum or plasma 2023 [facility], [address] [place] [address], [address], 4 11:33:00 ESR (erythrocy te sedimentat ion rate), blood 2023 [facility], [address] [place] [address], [address], 4 11:33:00 lipid panel, blood 2023 [facility], [address] [place] [address], [address], 4 14:22:24 hemoglobin , gastrointe stinal, stool 2023 [facility], [address] [place] [address], [address], 16:46:26 CBC w/ auto diff 2023 [facility], [address] [place] [address], [address], 4 15:14:49 CMP, serum or plasma 2023 [facility], [address] [place] [address], [address], 4 17:23:42 HbA1c (hemoglobi n A1c), blood 2023 024 [facility], [address] [place] [address], [address], 4 11:08:43 HbA1c (hemoglobi n A1c), blood 2023 024 [facility], [address] [place] [address], [address], 4 11:08:43 Referral physical therapist referral 2023 024 [facility], [address] [place], [address], 4 08:57:37 Procedures None recorded. Surgeries None recorded. Imaging US, abdomen, limited 2024 025 [facility] Central Scheduling, [address] [place], [address], 5 08:39:02 XR, knee, 3 view 2023 024 [facility], [address] [place], [address], 4 08:51:58 Medication Orders None recorded. Patient TargetsNo targets recorded. Patient Instructions Encounter Date Encounter Id Patient Instructions Last Modified By Organization Details Last Modified Time 01/12/2024 [id number] advance care planning: care instructions Not available [...] more view No observ ation record ed. [email or web address] Not Available 03/16 08:34:58 03/23/20 24 03/23/2024 XR, foot, 3 or more view No observ ation record ed. [facility] ([facility]) [address] [place], [address], 03/25/2024 08:46:18 04/27/20 24 04/26/2024 XR, knee, 3 view No observ ation record ed. [email or web address] Not Available 04/27 09:28:02 05/20/20 24 04/14/2024 US, duple x, arter ial, lower extre mity No observ ation record ed. [email or web address] [facility] (Medical Records) [address] [place], [address], 05/20/2024 09:51:40 07/11/19 25 07/11/2024 US, abdom en, limit ed No observ ation record ed. [facility] Sched[facility] [address] [place], [address], 07/12/2024 12:17:01 Result Notes None recorded. Problems Name Problem SNOMED Code Status Onset Date Resolution Date Notes Provider Name and Address Organization Details Recorded Time Gastroeso phageal reflux disease 555188619 Active 2017 Not Available [facility] 14:23:18 Esophagea l web / ring 699284311 Active 2017 Not Available [facility] 14:23:18 Hypertens esperanza disorder 11112989 Active 2017 white coat Not Available [employer] 14:23:18 Osteomyel itis 19855290 Active 2017 Not Available [facility] 14:23:18 Chronic kidney disease 207038380 Active 2017 Not Available [facility] 14:23:18 Inflamed seborrhei c keratosis 169137194 Active 2017 Not Available [facility] 1 14:23:18 Type 2 diabetes mellitus 39468733 Active 2017 Not Available [facility] 1 14:23:18 Neuropath y due to diabetes mellitus 319213349 Active 2017 Not Available [facility] 1 14:23:18 Systolic murmur 57668412 Active 2019 Not Available [facility] 1 14:23:18 Labile hypertens ion due to being in a clinical environme nt 336039978 Active 2019 Not Available [facility] 1 14:23:18 Hiatal hernia 67941697 Active 2020 small MANUEL BILLS [address] [place] [address], [address], [facility] 1 10:33:42 COVID-19 156013305 Active 2022 MANUEL BILLS [address] [place] [address], [address], [facility] 3 12:31:00 Ulcer of toe 236008064 Active 2022 Jos Mirza DO [address] [place] [address], [address], [facility] 3 13:58:08 Aortic stenosis, non-rheum atic 486072199 Active 2022 Jos Mirza DO [address] [place] [address], [address], [facility] 3 10:51:05 Bilateral lower leg edema 923705658 Active 2022 Jos Mirza DO [address] [place] [address], [address], [facility] 3 10:51:39 Achalasia 20935462 Active 2022 type 2 MANUEL BILLS [address] [place] [address], [address], [facility] 3 12:43:54 Aspiratio n pneumonia 686103792 Active 2022 MANUEL BILLS [address] [place] [address], [address], [facility] 3 10:38:39 Ulcer of foot 27858992 Active 2023 Jos Mirza, DO [address] [place] [address], [address], [facility] 4 14:45:58 Cataract due to diabetes mellitus type 2 609999683 Active 2023 Jos Mirza, DO [address] [place] [address], [address], [facility] 4 14:50:18 Osteomyel itis of right foot 210207355588 9100 Active 2023 MANUEL BILLS [address] [place] [address], [address], [facility] 4 15:43:38 Chronic regurgita tion 59570239 Active 2023 Jos Mirza, DO [address] [place] [address], [address], [facility] 4 14:17:34 Osteomyel itis of left foot 011420440701 9107 Active 2023 Jos Mirza, DO [address] [place] [address], [address], [facility] 4 21:23:01 Abnormal weight loss 038227916 Active 2023 MANUEL BILLS [address] [place] [address], [address], [facility] 4 11:18:46 Essential hypertens ion 74928988 Active 2023 MANUEL BILLS [address] [place] [address], [address], [facility] 4 15:50:51 Fall Active 2023 MANUEL BILLS [address] [place], [address], [facility] 4 09:44:26 Physical deconditi oning 367987957559 02 Active 2023 MANUEL BILLS [address] [place], [address], [facility] 4 09:47:23 Pain of left knee joint 477828615016 107 Active 2023 MANUEL BILLS [address] [place] [address], [address], [facility] 4 09:51:19 Acute hyperkale desiree 8233048 Active 2023 MANUEL BILLS [address] [place] [address], [address], [facility] 4 09:55:08 Right inguinal hernia 900512330 Active 2024 MANUEL BILLS [address] [place] [address], [address], [facility] 5 14:20:52 Notes:Some problems listed i n Documents: #[id number], #[id number], #[id number], #[id number], #[id number] could not be added to this patient's chart. Please review these documents and add these problems to the patient's chart manually as needed. Problem Notes None recorded. Procedures Surgical History Date Name Laterality Status Provider Name and Address Organization Details Recorded Time 020 Arthrocentesis Major Joint/Bursa completed August MAURIZIO Parker [address] [place] [address], [address], [facility] 07/29/2019 11:49:15 020 Removal of foreign body in ear canal completed August MAURIZIO Parker [address] [place] [address], [address], [facility] 07/29/2019 11:50:25 Imaging Results Imaging Date Name Status LastModified by Organiz ation Details LastModified Time 12/22/2023 XR, foot completed [email or web address] Information no t available 12/22/2023 16:41:03 02/17/2024 XR, foot, 3 or more view completed Information not available 02/19/2024 10:54:34 02/25/2024 XR, foot completed Information no t available 02/26/2024 14:59:35 03/15/2024 XR, foot, 3 or more view completed [email or web address] Information not available 03/16/2024 08:34:58 03/23/2024 XR, foot, 3 or more view completed [facility]) [address] [place], [address], 03/25/2024 08:46:18 04/26/2024 XR, knee, 3 view completed [email or web address] Information not available 04/27/2024 09:28:02 04/14/2024 US, duplex, arterial, lower extremity completed [facility] (Medical Records) [address] [place], [address], 05/20/2024 09:51:40 07/11/2024 US, abdomen, limited [email or web address] [address] [place], [address], 07/12/2024 12:17:01 Procedure Notes None recorded. Medical Equipment None Reported. Allergies Allergen ID Allergen Name Allergen Category Reaction Reaction Severity Criticality Documentation Date Start Date Code Code System Note Provider Name and Address Organization Details Recorded Time 2511 adhesive environme nt,medica tion Not available Not available Not available 04/09/2018 [id number] UNK Simi arthur [place] - [facility] 8 15:08:01 Medications Name Sig [...] Available No t Available FreeStyle Ana 2 Spruce USE DIRECTED active Not Available Not Available [...] Updated DateTime 4 189.87 cm 24.5 kg/m2 69831.5 1 g 65 /min 98 % 98 % 134 mm[Hg] 78 mm[Hg] Jennifer [facility] 4 13:47:00 Date Recorded Body height Body mass index (BMI) Body weight Heart rate Oxygen saturation Oxygen saturation in Arterial blood by Pulse oximetry Systolic blood pressure Diastolic blood pressure Provider Name and Address Organization Details Last Updated DateTime 4 190.5 cm 24.4 kg/m2 49369.5 1 g 65 /min 98 % 98 % 140 mm[Hg] 60 mm[Hg] Tu Lizz [facility] 4 14:04:24 Date Recorded Body height Body mass index (BMI) Body weight Heart rate Oxygen saturation Oxygen saturation in Arterial blood by Pulse oximetry Systolic blood pressure Diastolic blood pressure Provider Name and Address Organization Details Last Updated DateTime 4 190.5 cm 23.2 kg/m2 41121.1 8 g 87 /min 97 % 97 % 166 mm[Hg] 84 mm[Hg] Jennifer Mcintosh [facility] 4 11:03:18 Date Recorded Body height Body mass index (BMI) Body weight Heart rate Oxygen saturation Oxygen saturation in Arterial blood by Pulse oximetry Systolic blood pressure Diastolic blood pressure Provider Name and Address Organization Details Last Updated DateTime 4 190.5 cm 22.9 kg/m2 09356.4 g 69 /min 99 % 99 % 142 mm[Hg] 68 mm[Hg] Nakita Valladares [facility] 4 09:36:14 Date Recorded Body height Heart rate Oxygen saturation Oxygen saturation in Arterial blood by Pulse oximetry Systolic blood pressure Diastolic blood pressure Provider Name and Address Organization Details Last Updated DateTime 5 190.5 cm 68 /min 97 % 97 % 152 mm[Hg] 84 mm[Hg] Jennifer Mcintosh [facility] 5 14:05:43 Social History Question Answer Notes LastModified by Organizat ion Details LastModified Time Tobacco Smoking Status Never Smoker Not Available [facility] 03/27/2020 03:36:24 What Was The Date Of [...] zoster live 10/24/19 12 completed Nai arthur [facility] 02/03/2018 16:12:49 Influenza, split virus, quadrivalent, preservative 01/16/20 21 completed Jos Mirza, [address] [place] [address], [address], [facility] 04/16/2021 09:59:56 COVID-19, mRNA, LNP-S, PF, 30 mcg/0.3 mL dose 02/21/20 21 [facility] 10:01:17 influenza, unspecified formulation 01/31/20 22 completed Jos Mirza, DO [address] [place] [address], [address], [facility] 07/25/2022 13:39:10 Influenza, split virus, quadrivalent, preservative 01/19/20 19 completed Simi [facility] 01/19/2019 08:07:19 pneumococcal polysaccharide PPV23 12/15/19 18 completed Not Available [facility] 06/25/2019 02:14:52 Influenza, split virus, quadrivalent, preservative 02/07/20 20 [facility] 13:36:29 zoster recombinant 05/29/19 21 [facility] 05/30/2020 13:55:39 zoster, unspecified formulation 08/14/19 21 [facility] 08/14/2020 14:30:47 COVID-19, mRNA, LNP-S, PF, 30 mcg/0.3 mL dose 07/20/19 21 [facility]/15/2020 13:37:20 COVID-19, mRNA, LNP-S, PF, 30 mcg/0.3 mL dose 07/05/19 21 [facility]/15/2020 13:37:30 Td(adult) unspecified formulation 09/27/19 17 [facility] 01/27/2018 08:24:33 Influenza, split virus, quadrivalent, preservative 01/30/20 18 completed Jos Mirza, [address] [place] [address], [address], [facility] 01/30/2018 14:25:04 Past Encounters Encounter ID Performer Location Encounter Start Date Encounter Closed Date Diagnosis/Indication Diagnosis SNOMED-CT Code Diagnosis ICD10 Code Diagnosis Note [id number] Jos Mirza [facility] [address] [facility],[place] [address] 09/08/2017 10:25:07 09/08/2017 12:21:26 Adult health examination 537865246 Z00.01 cont to follow up with wound care drs and his bp dr Active or passive immunization 234530133 Z23 [id number] August Elena LUISJT [facility] [address] [facility],[place] [address] 12/09/2017 15:14:15 12/09/2017 16:34:28 Cellulitis of lower limb 817079517 L03.119 due to concern for recurrent cellulitis and acute skin changes recommend starting abx Diabetic foot ulcer 3710 66980 E11.40 Type 2 chip betes mellitus 94592360 E11.65 Hypertensive disorder 38 250841 I10 123/63 this morning at home white coat [id number] Jos Mirza DO [facility] Internal [facility] [address] [facility],[place] [address] 12/11/2017 11:41:34 12/11/2017 12:46:01 Type 2 diabetes mellitus 54641750 E11.9 a1c is 6.5 and pt is doin g well Hypertensive disorder 38 027108 I10 stable Cellulitis of foot 26434 6007 L03.119 increase cephalexin to qid and follow closely will receck next week [id number] Jos Mirza DO [facility] [address] [facility],[place] [address] 12/15/2017 13:23:34 12/15/2017 16:09:58 Cellulitis of toe 90695916 L03.032 clearing continue with abx for next 5 days and finish all [id number] Mariah Carias NP, S [facility] [address] [facility], [place] [address] 01/18/2018 10:28:06 01/18/2018 13:31:11 Cellulitis of toe 65891651 L03.032 Neuropathy due to diabetes mellitus 506345419 E11.[address] Berna dubose Hypertensive disorder 38 254419 I10 follow Chronic ki dney disease 977846239 N18.9 stable, creat 2, no micro albumin [id number] Mariah Carias NP, S [facility] [address] [facility], [place] [address] 01/27/2018 11:10:50 01/27/2018 16:23:20 Fatigue 31208421 R53.83 Infection of toe 8835860 06 L08.9 f/u wound care Chronic ki dney disease 732818762 N18.9 creatinine up to 2.31, to recheck next Thursday Skin react ion irritant 122151113 R23.8 avoid cortisone [id number] Mariah Carias NP, [facility] [address] [facility], [place] [address] 02/05/2018 11:37:03 02/05/2018 12:16:23 Neuropathy due to diabetes mellitus 079440485 E11.40 Hypertensive disorder 38 378388 I10 follow Chronic ki dney disease 346329360 N18.9 creat improved to 1.8 [id number] Mariah Carias NP, [facility] [address] [facility], [place] [place] [facility] [address] 03/31/2018 15:17:57 03/31/2018 16:20:54 Painful rectal bleeding 176943511 K62.5 [id number] Jos Mirza [facility] [address] [facility], ite [facility] [place] [address] 04/09/2018 15:02:16 04/09/2018 16:26:21 Adult health examination 160195382 Z00.01 cont to follow up with wound care drs and his bp dr Screening for cardiovascular system disease 822302568 Z13.6 no symptoms noted needs cholestero l ordered Screening for malignant neoplasm of colon 979357386 Z12.11 had 2 yrs ago Hypertensive disorder 38 067018 I10 stable overall at home is in 110's over 60's Type 2 chip betes mellitus 71689560 E11.9 a1c is 6.1 and pt is doing well Osteomyelitis 12835744 M 86.9 ongoing treatment of left foot and is having leaking daily so hole is still present has a silver alginate dressing applied daily this has been ongoing for 1 year will prob need more hyperbaric treatment [id number] Jos Mirza DO [facility] [address] [facility], ite [facility] [place] [address] 07/14/2018 09:31:53 07/14/2018 10:06:22 Osteomyelitis 31297672 M86.9 ongoing treatment of left foot and is having leaking daily so hole is still present has a silver alginate dressing applied daily but this was stopped as it was too occlusive this has been ongoing for 1 year will prob need more hyperbaric treatment Cellulitis of lower leg 795588325 L03.119 is resolving on levaquin will finish culture not taken has appearance of completely resolved cellulitis after only 3 days of levaquin Type 2 chip betes mellitus 53213986 E11.9 a1c is 6.3 and pt is doing well Chronic ki dney disease 985803169 N18.9 is actually stable with his creat 1.88 Hypertensive disorder 38 239626 I10 stable overall now on losartan 100 mg at home is in 110's over 60's [id number] Jos Mirza DO [facility] [address] [facility], ite [facility] [place] [address] 10/11/2018 14:17:14 10/11/2018 14:57:47 Type 2 diabetes mellitus 76148964 E11.9 a1c is 6.5 and pt is doing well Hypertensive disorder 38 542462 I10 stable overall now on losartan 100 mg at home is in 110's over 60's Neuropathy due to diabetes mellitus 101420351 E11.40 cont with keeping his sugar controlled Chronic ki dney disease 223310742 N18.9 creat has increased to 2.8 and is worrisome and will need to continue follow with Dr Duran Edema of l ower extremity 286870326 R60.0 possibilit y of nifedipine being the cause [id number] Jos Mirza [facility] [address] [facility] [place] [address] 02/08/2019 13:28:02 02/08/2019 14:30:29 Hypertensive disorder 41538498 I10 stable overall now on losartan 100 mg at home is in 110's over 60's Type 2 chip betes mellitus 37387284 E11.9 a1c is 6.4 was 6.5 and pt is doing well Stricture of esophagus 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 please send prior notes from gastroent ([facility] [place]) [id number] Jos Mirza [facility] [address] [facility],[place] [address] 06/17/2019 15:04:08 06/17/2019 16:09:39 Chronic kidney disease 124142203 N18.9 Awaiting documentat ion from Neph Was referred to Heme/Onc likely for anemia GFR stable at 28 Neuropathy due to diabetes mellitus 271371852 E11.40 cont with keeping his sugar controlled Hypertensive disorder 38 523595 I10 BP well controlled Started doxazosin 2 mg by nephrology Type 2 chip betes mellitus 66108985 E11.9 A1C is 6.6 up from 6.4 stable [id number] MAURIZIO Rutledge [facility] [address] [facility],[place] [address] 07/29/2019 10:52:25 07/29/2019 12:10:52 Bursitis of olecranon of left elbow 9675349513 33692 M70.22 successful olecranon bursa drainage f/u if fluid returns Foreign janeth dy in left ear 7434175593 6171394 T16.2XXA ear tube removed from canal without complicati on Foreign janeth dy in right ear 7468956895 2700872 T16.1XXA ear tube removed from canal without complicati on Hypertensive disorder 38 400805 I10 stable Systolic murmur 83225453 R01.1 known [id number] Jos Mirza [facility] Medicine [address] [facility], [place] [address] 10/18/2019 15:12:37 10/18/2019 15:51:40 Type 2 diabetes mellitus 88289010 E11.9 A1C is 6.6 up from 6.4 stable Osteomyelitis 84775304 M 86.9 ongoing treatment of left foot and is having leaking daily so hole is still present has a silver alginate dressing applied daily but this was stopped as it was too occlusive this has been ongoing for 1 year had some more work done on his 3rd left toe has been starte don his abx Hypertensive disorder 38 419683 I10 BP well controlled Started doxazosin 2 mg by nephrology [id number] MANUEL BILLS [facility] [address] [facility],[place] [address] 11/16/2019 14:45:53 11/16/2019 15:29:21 Cellulitis 832376536 L03.90 resolving well healing will finish rest of 9 days of Keflex Chronic ki dney disease 606996585 N18.9 stable Neuropathy due to diabetes mellitus 811525020 E11.40 stable Hypertensive disorder 38 068363 I10 BP elevated today, mostly likely due to infection, is trending down will continue to monitor Osteomyelitis 16493603 M 86.9 discussing with specialist Type 2 chip betes mellitus 58342498 E11.21 stable [id number] Jos Mirza DO [facility] [address] [facility] [place] [address] [facility] [place] [address] 02/01/2020 13:26:40 02/01/2020 14:04:23 Type 2 diabetes mellitus 23882027 E11.9 A1C is 6.6 again as it was last time and before up from 6.4 stable Hypertensive disorder 38 291059 I10 BP well controlled Started doxazosin 2 mg by nephrology Neuropathy due to diabetes mellitus 290917445 E11.40 cont with keeping his sugar controlled 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 9443191 K22.2 doing well with this he is asymptomat ic Gastroesop hageal reflux disease 086578499 K21.9 quiet and doing well Chronic ki dney disease 498063575 N18.9 Awaiting documentat ion from Neph Was referred to Heme/Onc likely for anemia GFR stable at 28 Osteomyelitis 11702136 M 86.9 ongoing treatment of left foot and is having leaking daily so hole is still present has a silver alginate dressing applied daily but this was stopped as it was too occlusive this has been ongoing for 1 year had some more work done on his 3rd left toe has been starte bela his abx Iron deficiency 57559714 E61.1 noted by his other specialist told to add iron foodstuff 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 894372397 I15.8 home bps are excellent [id number] MANUEL BILLS [facility] [address] [facility],[place] [address] 04/16/2020 14:36:49 04/16/2020 15:22:24 Hypertensive disorder 85094126 I10 BP elevated today, mostly likely due to infection, is trending down will continue to monitor Type 2 chip betes mellitus 09258103 E11.21 stable Pruritic disorder 420663 002 L29.9 trial of steriod and antihistam ine Diabetic foot 655728429 E11.59 will try antifungal Ingrowing nail of toe of right foot [id number] 5080090 L60.0 doing well 35830 MANUEL BILLS [facility] [address] [facility],[place] [address] 04/24/2020 13:52:46 04/24/2020 14:36:15 Ingrowing nail of toe of right foot [id number] 9289675 L60.0 fu of his ingrown toe doing well on ketoconazo le Edema of l ower extremity 151221405 R60.0 will start on lasix and check BMP for CKD will also check TSH to see if related to swelling and itching will fu with possible vascular referral Chronic ki dney disease 938704358 N18.9 stable Cellulitis 502533548 L03 .90 r/o osteomyeli tis [id number] Jos Mirza DO [facility] [address] [facility],[place] [address] 05/14/2020 13:27:57 05/14/2020 14:27:06 Hypertensive disorder 50266773 I10 BP well controlled Started doxazosin 2 mg by nephrology Type 2 chip betes mellitus 89312949 E11.9 A1C is 6.7 and was 6.6 again as it was last time and before up from 6.4 stable Chronic ki dney disease 573209709 N18.9 Awaiting documentat ion from Neph Was referred to Heme/Onc likely for anemia of chronic ds GFR stable at 28 still has creat elevated followed by dr duran Osteomyelitis 54079512 M 86.9 ongoing treatment of left foot and is having noted improvemen t and near resolution Neuropathy due to diabetes mellitus 612441971 E11.40 cont with keeping his sugar controlled he does have signif loss of sensation bilat Edema of lower leg 61448 7004 R60.0 relates that he is much improved and is going to use the furosemide on a prn 88367 [facility] [address] [facility],[place] [address] 08/15/2020 13:32:58 08/15/2020 14:28:58 Chronic kidney disease 791228941 N18.9 Awaiting documentat ion from Neph which has still not come dr duran at Was referred to Heme/Onc likely for anemia of chronic ds GFR stable at 28 still has creat elevated at 2.1 but is slowly getting better followed by dr duran Type 2 chip betes mellitus 64936365 E11.9 A1C is 6.5 was 6.7 and was 6.6 again as it was last time and before up from 6.4 stable Hypertensive disorder 38 806522 I10 BP well controlled HE WILL RESCHEDULE APPT IN 1 MONTH AND BRING IN HOME READINGS TO GET SCANNED has been elevated at dr sun bp 133 / 63 he has signif white coat hypertensi on nifedipine by nephrology 51465 [facility] [address] [facility],[place] [address] 09/21/2020 14:24:25 09/21/2020 15:24:14 Hypertensive disorder 19093667 I10 BP well controlled HE WILL RESCHEDULE APPT IN 1 MONTH AND BRING IN HOME READINGS TO GET SCANNED has been elevated at dr sun bp 133 / 63 he has signif white coat hypertensi on nifedipine by nephrology Type 2 chip betes mellitus 36194381 E11.9 A1C is 6.5 was 6.7 and was 6.6 again as it was last time and before up from 6.4 stable Chronic ki dney disease 486985687 N18.9 Awaiting documentat ion from Neph which has still not come dr duran at Was referred to Heme/Onc likely for anemia of chronic ds GFR stable at 28 still has creat elevated at 1.99 but is slowly getting better followed by dr duran 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 994668933 I15.8 home bps are excellent [id number] MANUEL BILLS [facility] [address] [facility] [address], [facility] [address] 12/17/2020 14:52:24 12/17/2020 15:31:42 Hypertensive disorder 51448717 I10 BP elevated today, mostly likely due to infection, is trending down will continue to monitor elevated in doctor's offices usually fine at home Osteomyelitis 47798063 M 86.9 discussing with specialist has fu in 4 weeks Neuropathy due to diabetes mellitus 071424551 E11.40 stable Type 2 chip betes mellitus 60135440 E11.21 stable [id number] Jos Mirza DO [facility] [address] [facility] on [place], [place], [place] 7 01/16/2021 13:51:42 01/16/2021 15:12:45 Type 2 diabetes mellitus 64920382 E11.9 A1C is still 6.5 and prior 6.5 was 6.7 and was 6.6 again as it was last time and before up from 6.4 stable Hypertensive disorder 38 623182 I10 BP well controlled HE WILL RESCHEDULE APPT IN 1 MONTH AND BRING IN HOME READINGS TO GET SCANNED has been elevated at dr dino bp 133 / 63 he has signif white coat hypertensi on nifedipine by nephrology Chronic ki dney disease 314224011 N18.9 Awaiting documentat ion from Neph which has still not come dr duran at Was referred to Heme/Onc likely for anemia of chronic ds GFR stable at 28 still has creat elevated at 1.9 but is slowly getting better followed by dr duran Neuropathy due to diabetes mellitus 349424653 E11.40 cont with keeping his sugar controlled he does have signif loss of sensation bilat Osteomyelitis 35607394 M 86.9 ongoing treatment of left foot and is having noted improvemen t and near resolution [id number] Jos Mirza DO [facility] [address] [facility] on [place], [place] [address] 04/16/2021 09:51:13 04/16/2021 15:08:26 Active or passive immunization 912598168 Z23 utd Adult heal th examination 507981049 Z00.00 cont to follow up with wound care drs and his bp heather to have follow up with hospice patient care secretary for her hammertoe [id number] MANUEL BILLS [facility] [address] [facility],[place] [address] 05/13/2021 09:53:26 05/13/2021 13:58:59 Hypertensive disorder 82518203 I10 stable at home, no medical interventi on needed 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 766351809 I15.8 stable, has high BP in clinical settings, good at home Pre-surger y evaluation 290946467 Z01.818 The patient was seen in the office today for pre-op evaluation . All medical conditions on patient's problem list were addressed and are currently stable, no interventi on needed at this time. Based on history and physical performed, the patient is cleared for surgery. Chronic ki dney disease 685137485 N18.9 stablerece nt visit with nephrologi st cleared patient [id number] MANUEL BILLS [facility] [address] [facility],[place] [address] 07/22/2021 13:43:25 07/23/2021 15:43:08 Clostridioides difficile infection 111767519 A04.72 resolved Hypertensive disorder 38 673619 I10 stable at home, no medical interventi on needed [id number] Jos Mirza DO [facility] [address] [facility],[place] [address] 08/21/2021 09:25:46 08/21/2021 13:55:05 Hypertensive disorder 47743307 I10 BP well controlled bp has been goodbp is now running 110/60s nifedipine by nephrology Neuropathy due to diabetes mellitus 823614359 E11.40 cont with keeping his sugar controlled he does have signif loss of sensation bilat Osteomyelitis 22513152 M 86.9 now resolved doing wellsome discomfort around the callous areahas been scraping the callous himself Type 2 chip betes mellitus 71086902 E11.9 A1C is still 6.6 and wasw 6.5 and prior 6.5 was 6.7 and was 6.6 again as it was last time and before up from 6.4 stable [id number] MANUEL BILLS [facility] [address] [facility] [address] [place] [address] 06/17/2022 11:49:05 06/18/2022 09:29:55 COVID-19 890418844 U07.1 will adjust steriod dennis to prednisone start cough suppressan tthe patient will also increase food intake [id number] Jos Mirza DO [facility] [address] [facility] on [place] [address] 07/25/2022 13:22:11 07/25/2022 16:19:09 Active or passive immunization 126107902 Z23 utd Adult heal th examination 365913198 Z00.00 cont to follow up with wound care drs and his bp jesse to have follow up with hospice patient care secretary for her hammertoe Neuropathy due to diabetes mellitus 550490441 E11.40 cont with keeping his sugar controlled he does have signif loss of sensation bilat Osteomyelitis 71425691 M 86.9 now resolved doing wellsome discomfort around the callous areahas been scraping the callous himself Type 2 chip betes mellitus 55251163 E11.9 A1C is now up to 7.5 but he just lost 20lbs so he will be lower next 6.6 and was 6.5 and prior 6.5 was 6.7 and was 6.6 again as it was last time and before up from 6.4 stable Advance care planning 71 6408222 Z71.89 utd Hypertensive disorder 38 174657 I10 BP well controlled bp has been goodbp is now running 110/60s nifedipine by nephrology Gastroesop hageal reflux disease 890647932 K21.9 quiet and doing well Ulcer of toe 753653234 L 97.509 will need insert and sneaker 76975 Jos Mirza DO [facility] [address] [facility] [address] [place] [address] 12/01/2022 10:22:12 12/01/2022 11:29:49 Type 2 diabetes mellitus 49633550 E11.9 A1C is now at 6.7 but he lost 20lbs 6.6 and was 6.5 and prior 6.5 was 6.7 and was 6.6 again as it was last time and before up from 6.4 stable Hypertensive disorder 38 017437 I10 BP well controlled bp has been goodbp is now running 110/60s nifedipine by nephrology Aortic jaime nosis, non-rheumatic 651924473 I35.0 has an upcoming echo Bilateral lower leg edema 494925010 R60.0 this is prob from the nifedipine [id number] MANUEL BILLS [facility] [address] [facility] [address],[place] [address] 03/24/2023 09:38:11 03/24/2023 13:57:28 Essential hypertension 56095144 I10 medication adjusted in chartneeds new scripts for the metoprolol and nifedipine Achalasia 09633261 K22.0 having more issues with itno effect with his recent dilation Type 2 chip betes mellitus 06667691 E11.9 stableagre ed to endo consult for diabetic education Aspiration pneumonia 422 341839 J69.0 will set up with lab work [id number] Jos Mirza DO [facility] [address] [facility] [address],[place] [address] 08/14/2023 14:01:17 08/14/2023 15:09:45 Essential hypertension 80267080 I10 has been stable no issues Hypertensive disorder 38 113359 I10 BP well controlled bp has been goodbp is now running 110/60s nifedipine by nephrology Neuropathy due to diabetes mellitus 014113610 E11.40 cont with keeping his sugar controlled he does have signif loss of sensation bilat a1c is 6.1 Type 2 chip betes mellitus 23137762 E11.9 A1C is now at 6.1 was 6.7 (but he lost 30lbs ) 6.6 and was 6.5 and prior 6.5 was 6.7 and was 6.6 again as it was last time and before up from 6.4 stable Aspiration pneumonia 422 271095 J69.0 quiet and reolved Chronic ki dney disease 035992560 N18.9 Awaiting documentat ion from Neph which has still not come dr duran at Was referred to Heme/Onc likely for anemia of chronic ds GFR stable at 28 still has creat elevated at 1.9 but is slowly getting better followed by dr duran Ulcer of foot 77891950 L 97.509 followed by wound nurse and podiatryco nt to use doxycyclin e Cataract d ue to diabetes mellitus type 2 980906796 E11.36 we will give him a pre op today [id number] CONNOR GUILLEN [facility] [address] [facility],[place] [address] 09/04/2023 15:01:17 09/04/2023 16:06:40 Amputated big toe 246026032 Z89.411 stable Osteomyeli tis of right foot 3292414843 206380 M86.011 stable [id number] Jos Mirza [facility] [address] [facility], [place] [address] 12/11/2023 13:35:43 12/11/2023 15:05:49 Depression screening 556636298 Z13.31 SCREENING NEGATIVE Hypertensive disorder 38 182700 I10 BP well controlled bp has been goodbp is now running 110/60s nifedipine by nephrology Type 2 chip betes mellitus 64684530 E11.9 A1C is now at 6.1 was 6.7 (but he lost 30lbs ) 6.6 and was 6.5 and prior 6.5 was 6.7 and was 6.6 again as it was last time and before up from 6.4 stable Neuropathy due to diabetes mellitus 596555698 E11.40 cont with keeping his sugar controlled he does have signif loss of sensation bilat a1c is 6.1 Aortic jaime nosis, non-rheumatic 712920508 I35.0 has an upcoming echo [id number] Jos Mirza [facility] [address] [facility],[place] [address] 01/12/2024 13:52:17 01/12/2024 14:49:17 Adult health examination 846556807 Z00.00 cont to follow up with wound care drs and his bp jesse to have follow up with hosp[facility] Scre[facility] for cardiovascular system disease 901763573 Z13.6 no symptoms noted needs cholestero l ordered Screening for malignant neoplasm of colon 716213048 Z12.11 had 2 yrs ago Depression screening 171 804974 Z13.31 SCREENING NEGATIVE Chronic regurgitation 84 568696 R11.10 has had egd x 3 and seen multiple specialist s Type 2 chip adams mellitus 98266560 E11.9 A1C is now at 6.0, 6.1 was 6.7 (but he lost 30lbs ) 6.6 and was 6.5 and prior 6.5 was 6.7 and was 6.6 again as it was last time and before up from 6.4 stable [id number] MANUEL BILLS [facility] [address] [facility], [place] [address] 03/08/2024 10:53:58 03/08/2024 11:55:56 Gastroesophageal reflux disease 449068715 K21.00 suggested prilosec for reflux Abnormal weight loss 267 388200 R63.4 agreed to lab work [id number] MANUEL BILLS [facility] [address] [facility],[place] [address] 04/26/2024 09:25:17 04/26/2024 14:54:21 Fall 0798855 R29.6 will set up with PT Physical deconditioning 5225192214 9102 R68.89 will set up with PT Pain of le ft knee joint 8174770407 70034 M25.562 will set up with XR Acute hyperkalemia 95053 00 E87.5 will set up with with lab work [id number] MANUEL BILLS [facility] [address] [facility], [place] [address] 06/10/2024 13:52:26 06/10/2024 14:45:37 Right inguinal hernia 925014440 K40.90 will set up with US abdomen/gr [...] 12/11/2023 1 [employer] [place] [employer] [facility] (MEDICARE REPLACEMENT HMO) [id number] 1 Karthikeyan Lazo . [id number] Karthikeyan Lazo 01/12/2024 1 [employer] [place] - MEDICARE ADVANTAGE PLAN (MEDICARE REPLACEMENT HMO) [id number] 1 Karthikeyan Lazo Sr. [id number] 03/08/2024 1 [employer] [place] [employer]ICARE ADVANTAGE PLAN (MEDICARE REPLACEMENT HMO) [id number] 1 Karthikeyan Lazo Sr. [id number] [facility] 04/26/2024 1 [employer] [place] [employer]ICARE ADVANTAGE PLAN (MEDICARE REPLACEMENT HMO) [id number] 1 Karthikeyan Lazo Sr. [id number] Karthikeyan 06/10/2024 1 [employer] [place] [employer]IC[employer] ADVANTAGE PLAN (MEDICARE REPLACEMENT HMO) [id number] 1 Karthikeyan Lazo Sr. [id number] Notes Date Note Type Note Provider Name [...] will need to refer him back to [facility] have kept his wegiht below 200states that he is feeling well wxcept for his vision still having issue with cataractand his retina is ok after 2 surgeries Jos Mirza, DO [address] [facility], [place], [address], [facility] 12/11/2023 14:18:49 4 [...] with constant regurgitation Jos Mirza, DO [address] [facility], [place], [address], [facility] 01/12/2024 14:21:53 4 text/htm l [...] new orthoticssuggested probable issues MANUEL BILLS [address] [place], [address], [facility] 03/08/2024 11:36:52 4 text/htm l f/u leg issue after fall the patient reports that he noted his neuropathy was the probable causethe patient reports that he was in the [facility] waiting room with his , when he got up from the chair and ended up falling backwards into the chair the patient is currently using the walker with a knee bracewill have him continue to use the knee brace for his L knee will recheck his K levels and kidneysalready sent referral with information will fu afterwards with patient MANUEL BILLS [address] [place], [address], [facility] 04/26/2024 10:04:32 5 text/htm l [...] itwill discuss options afterwards MANUEL BILLS [address] [place], [address], [facility] 06/10/2024 14:32:23
--- OUTSIDE RECORDS SUMMARY | 2024-07-22 10:38 | XMS_ITS ---
Author Organization [facility] Address [address] [place] [address] Care Team Providers Care Workforce Specialist Name Role Phone Jos Mirza Primary Care Provider Too Torres Jr REASON FOR VISIT Patient presents today for regurtation Encounters Encounter Location Date Provider Diagnosis [facility] [address] [place] [address] 04/27/2023 Too Casey Jr PLAN OF TREATMENT No Information
--- OUTSIDE RECORDS SUMMARY | 2024-07-22 10:38 | XMS_ITS ---
Author Organization [facility] Address [address] [place] [address] Care Team Providers Care Hide Examiner Name Role Phone Jos Mirza Primary Care Provider Too Torres Jr REASON FOR VISIT cancel appt Encounters Encounter Location Date Provider Diagnosis [facility] [address] [place] [address] 04/01/2023 Too Casey Jr PLAN OF TREATMENT No Information
--- OUTSIDE RECORDS SUMMARY | 2024-07-22 10:38 | XMS_ITS ---
Author Organization [facility] Address [address] [place] [address] Care Team Providers Care Tire Man Name Role Phone Jos Mirza MD Primary Care Provider Mic Thibodeaux Unavailable [phone] Allergies Allergen (clinical drug ingredient) Drug/Non Drug Allergy documented on EMR Reaction Allergy Type Onset Date Status Adhesive Tape rash, itching Drug Allergy Active Latex Latex Unknown Allergy Active omeprazole Omeprazole legs swelling, kidney issues Drug Allergy Active Medications Medication SIG (Take, Route, Frequency, Duration) Notes Start Date End Date Status Aspirin 81 MG 1 tablet Orally Once a day Not-Taking INVanz Not-Taking Flaxseed Oil 1000 MG Orally Not-Taking Losartan Potassium 100 MG 1 tablet Orally Once a day Not-Taking Iodosorb 0.9 % as directed External ly Apply to ulceration daily with dry sterile dressing for 30 days 10/01/2021 Not-Taking Calcium 600 MG 1 tablet with meals Orally Once a day Not-Taking Fish Oil 1000 MG 1 capsule Orally Onc e a day Not-Taking Vitamin C 1000 MG 1 tablet Orally Once a day Not-Taking Probiotic Not-Taking Omeprazole 20 MG 1 capsule 30 minutes before morning meal Orally Once a day for 30 day(s) Not-Taking Probiotic Not-Taking Doxycycline Monohydrate 100 MG 1 capsule Orally Once a day for 10 day(s) Not-Taking Cephalexin 500 MG 1 capsule Orally joan ry 8 hrs for 10 days Not-Taking Pantoprazole Sodium 20 MG 1 tablet Orally Once a day Not-Taking Extra Depth Orthopedic Shoes (1 Pair) with Customized Heat Molded Multidensity Innersoles (3 Pair) as directed Dx: NIDDM/Polyneuropathy (E11.42), Hammertoe Foot Deformity (M20.41,M20.42), Preulcerative Skin Lesion(s) (L85.1 11/20/2023 Active Metoprolol Succinate 25 MG 1 capsule Orally Once a day for 30 day(s) Active Multi Vitamin Active Vitamin B12 1000 MCG 1 tablet Orally Onc e a day Active NIFEdipine ER 90 MG 1 tablet on an empty stomach Orally Once a day Active Vitamin D3 1000 UNIT 1 capsule Orally On ce a day Active Clopidogrel Bisulfate 75 MG 1 tablet Orally Once a day for 30 day(s) Active hydrALAZINE HCl 25 MG 1 tablet with food Orally Three times a day Active Encounters Encounter Location Date Provider Diagnosis [facility] [address] [address] 07/22/2024 Mic Mo Plan Of Treatment Next Appt Details Provider Name:Mic Mo , 07/22/2024 12:45:00 PM, [address] [place] [address], [phone], Progress Notes * Karthikeyan LAM ADOB: (83 yo M)Acc No.[id number]:07/22/2024 Progress Note Patient:?GENAROKarthikeyan Khanh Provider:?Mic Mo DPM :1940???Age:83 Y???Sex:Male Lex e:07/22/2024 Address:[address] [place], [place] [address] Pcp:Jos Mirza MD Subjective: * Chief Complaints: * ??? * Medical History:?High blood pressure, Kidney disease, Numbness, type II diabetes, Covid-19. * Medications:?Taking hydrALAZ INE HCl 25 MG Tablet 1 tablet with food Orally Three times a day , Taking Clopidogrel Bisulfate 75 MG Tablet 1 tablet Orally Once a day , Taking Multi Vitamin , Taking Metoprolol Succinate 25 MG Capsule ER 24 Hour Sprinkle 1 capsule Orally Once a day , Taking NIFEdipine ER 90 MG Tablet Extended Release 24 Hour 1 tablet on an empty stomach Orally Once a day , Taking Vitamin B12 1000 MCG Tablet Extended Release 1 tablet Orally Once a day , Taking Vitamin D3 1000 UNIT Capsule 1 capsule Orally Once a day , Taking Extra Depth Orthopedic Shoes (1 Pair) with Customized Heat Molded Multidensity Innersoles (3 Pair) as directed Dx: NIDDM/Polyneuropathy (E11.42), Hammertoe Foot Deformity (M20.41,M20.42), Preulcerative Skin Lesion(s) (L85.1 , Not-Taking/PRN Doxycycline Monohydrate 100 MG Capsule 1 capsule Orally Once a day , Not-Taking/PRN Probiotic , Not-Taking/PRN Pantoprazole Sodium 20 MG Tablet Delayed Release 1 tablet Orally Once a day , Not-Taking/PRN Cephalexin 500 MG Capsule 1 capsule Orally every 8 hrs , Not-Taking/PRN Calcium 600 MG Tablet 1 tablet with meals Orally Once a day , Not-Taking/PRN Vitamin C 1000 MG Tablet 1 tablet Orally Once a day , Not- Taking/PRN Fish Oil 1000 MG Capsule 1 capsule Orally Once a day , Not-Taking/PRN Omeprazole 20 MG Capsule Delayed Release 1 capsule 30 minutes before morning meal Orally Once a day , Not-Taking/PRN Probiotic , Not-Taking/PRN Iodosorb 0.9 % Gel as directed Externally Apply to ulceration daily with dry sterile dressing , Not-Taking/PRN Losartan Potassium 100 MG Tablet 1 tablet Orally Once a day , Not-Taking/PRN INVanz , Not-Taking/PRN Aspirin 81 MG Tablet Chewable 1 tablet Orally Once a day , Not-Taking/PRN Flaxseed Oil 1000 MG Capsule Orally * Allergies:?Adhesive Tape: ra sh, itching, Latex, Omeprazole: legs swelling, kidney issues. Objective: * Vitals:? Assessment: Plan: * Treatment: * Images: * The named appointment provid er may or may not be the originator of this progress note, and it is not deemed complete until electronically signed by the appointment provider. Sign off status: Pending * Provider:?Mic Mo DPM Date:?2024 Generated for Nighat neely/Duncan/Melo on:?07/22/2024 10:37 AM EST
--- OUTSIDE RECORDS SUMMARY | 2024-07-22 10:39 | XMS_ITS | Clinical Summary ---
Author Organization [facility] Address [address] [place] [address] Care Team Providers Care Line Crew Supervisor Name Role Phone Jos Mirza DO Primary Care Provider [phone] Allergies Active Allergy Reactions Criticality Noted Date [...] to complete this topic Insurance Care Teams Line Crew Supervisor Relationship Specialty Start Date End Date Jos Mirza DO [address] [place] [address] PCP - General 06/04/20
--- OUTSIDE RECORDS SUMMARY | 2024-07-22 10:39 | XMS_ITS | Clinical Summary ---
Author Organization 175 [facility] Address [address] [place] [address] Phone Care Team Providers Care Addressing Machine Operator Name Role Phone Jos Mirza DO Primary Care Provider [phone] Allergies Active Allergy Reactions Criticality Noted Date [...] 8:45 AM EST Office Visit Orthopedic Surgery [facility] [address] [facility] [address] [place] [address] Shay Brito DPM Chronic osteomyelitis of hindfoot, left (CMS/HCC) (Primary Dx); Follow-up exam; Ulcer of toe of right foot, limited to breakdown of skin (CMS/HCC); Ulcer of toe of left foot, with fat layer exposed (CMS/HCC) 06/06/2024 8:45 AM EST Office Visit Orthopedic Surgery [place] [phone] [address] Shay Brito DPM Chronic osteomyelitis of hindfoot, left (CMS/HCC) (Primary Dx); Follow-up exam; Ulcer of toe of left foot, with fat layer exposed (CMS/HCC) 05/09/2024 9:15 AM EST Office Visit Orthopedic Surgery [place] [address] [address] Shay Brito DPM Chronic osteomyelitis of hindfoot, left (CMS/HCC) (Primary Dx); Foot pain, left; Ulcer of toe of left foot, with fat layer exposed (CMS/HCC); Ulcer of toe of left foot, with necrosis of bone (CMS/HCC) 04/25/2024 8:00 AM EST Office Visit Orthopedic Surgery [place] [address] [phone] Shay Brito DPM Chronic osteomyelitis of hindfoot, [...] 04/25/2024 8:17 AM EST Left foot pain from Last 3 Months Results * XR Foot 3+ Views Left (06/06/2024 9:03 AM EST) Only the most recent of4 resultswithin the time period is included. Anatomical Region Laterality Modality Lower Extremities, Foot Left Computed Radiography Narrative 06/13/2024 12:37 PM EST Left foot 3 views Stabilizing changing's from chronic osteomyelitis of the second metatarsal resolved subcutaneous gas resolved stabilize changes no new acute erosions Shay Brito DPM IMG XR PROCEDURES Final R esult from Last 3 Months Insurance [employer] Care Teams Addressing Machine Operator Relationship Specialty Start Date End Date Jos Mirza DO [address] [facility] [address] [place], [place] PCP - General Internal Medicine 12/14/20
--- OUTSIDE RECORDS SUMMARY | 2024-07-22 10:39 | XMS_ITS ---
Author Organization [facility] Address [address] [place] [phone] Care Team Providers Care Bowling Pin Setters Installer Name Role Phone Jos Mirza Primary Care Provider Too Torres Jr REASON FOR VISIT update on being on medication Encounters Encounter Location Date Provider Diagnosis [facility] [address] [place] [phone] 01/20/2023 Too Casey Jr PLAN OF TREATMENT No Information
--- OUTSIDE RECORDS SUMMARY | 2024-07-22 10:39 | XMS_ITS | Encounter Summary ---
Author Organization [facility] Address [address] [place] [address] Care Team Providers Care Side Sawyer Name Role Phone Jos Mirza DO Primary Care Provider [phone] Reason for Visit * Reason Comments Follow-up Left foot wound Encounter Details Date Type Department Care Team ([facility] st Contact Info) Description 06/29/2024 8:45 AM EST Office Visit Orthopedic Surgery - [place] [address] [phone] Sahy Brito DPM [address] [address] Chronic osteomyelitis of hindfoot, left (CMS/HCC) (Primary [...] for pain silver sulfate/foam bandage (ME[employer]LEX [employer] [facility]) Apply 1 Applicator topically daily. Apply [...] 06/29/2024 documented in this encounter Care Teams Side Sawyer Relationship Specialty Start Date End Date Jos Mirza DO [address] [facility] [address] [place], [place] PCP - General Internal Medicine 12/14/20 documented as of this encounter
--- OUTSIDE RECORDS SUMMARY | 2024-07-22 10:39 | XMS_ITS | Patient Health Record ---
Author Organization [facility] Address [address] [place] [address] Care Team Providers Care Reporting Manager Name Role Phone Jos Mirza Primary Care [...] W/U Status Risk SNOMED Code Notes Problem Other dysphagia (R13.19) Active confirmed 26033287 Problem Dysphagia (R13.10) Active confirmed Dys phagia (29359722) Problem Esophageal stricture (K22.2) Active confirmed 31801117 Problem Gastric polyp (K31.7) Active confirmed 80556397 Problem Achalasia (K22.0) Active confirmed 4556 4002 Problem Regurgitation of food (R11.10) Active confirmed 873105477 Problem Hypertension, unspecified type (I10) Active confirmed 14774162 PLAN OF TREATMENT Future Test Test Name Order Date UPPER GI ENDOSCOPY BALLOOON DILATION OF ESOPH 03/11/2019 UPPER GI ENDOSCOPY BALLOOON DILATION OF ESOPH 02/17/2022 UPPER GI ENDOSCOPY 03/12/2022 Insurance Providers Payer Name Payer Address Payer Phone Subscriber Number Group Number Insured Name Patient Relationship to Insured Coverage Start Date Coverage End Date [facility] [address] [place] [phone] [id number] LUNA LAM Self - patient is the insured MEDICAL (GENERAL) HISTORY Medical History History ICD Code Type 2 diabetes mellitus, neuropathy hypertension kidney disease, stage 3 LINDA/CPAP SVT Diabetic foot infection Aortic stenosis Surgical History Surgery Date(Month/Year) Hospitalization History Reason Date(Month/Year) [facility], bone infection 2020
--- OUTSIDE RECORDS SUMMARY | 2024-07-22 10:39 | XMS_ITS ---
Author Organization [facility] Address [address] [place] [address] Care Team Providers Care Notereader Name Role Phone Hermes MILIAN, Jos Primary Care Provider Mic Thibodeaux Unavailable [phone] Allergies Allergen (clinical drug ingredient) Drug/Non Drug [...] Ulcer of toe of left foot (disorder) (6039396585 9015137) Skin ulcer of toe of left foot, limited to breakdown of skin (L97.521) Active confirmed Response to treatment improving Vital Signs Height 6 ft 3 in in 04/19/2024 Weight 195 lbs 04/19/2024 BMI 24.37 kg/m2 04/19/2024 Blood pressure systolic 120 mm Hg 04/19/20 24 Blood pressure diastolic 70 mm Hg 024 Procedures Procedure Date Ordered Date Performed Result Body Sit e 79579-VBPHMMZ NAIL, 6 OR MORE 04/19/2024 N/A 86062- Debride <25 sq cm 04/19/2024 N/A 80151-JMRNLBW SKIN/TISSUE 04/19/2024 N/A 33707-JIFK SKIN LESIONS, 2 TO 4 04/19/2024 N/A Encounters Encounter Location Date Provider Diagnosis [facility] [address] [place] [address] 04/19/2024 Mic Mo Type 2 diabetes mellitus [...] INSTRUCTIONS.pdf) Pending Test Test Name Order Date 98000-GHJFPRB NAIL, 6 OR MORE 04/19/2024 80295- Debride <25 sq cm 04/19/2024 32921-MKMEGZG SKIN/TISSUE 04/19/2024 39351-DEZL SKIN LESIONS, 2 TO 4 04/19/20 24 Next Appt Details Follow Up: prn, Reason: Provider Name:Mic Mo , 07/22/2024 12:45:00 PM, [address] [place], [address], Procedure Notes * Category Sub-Category Detail Notes [...] use of a nail nipper and/or dremel-type needle grinder, to a more viable healthy nail [...] to maintain effectiveness in symptomatic relief - 91082 Debride skin< 25 sq cm Open wound [...] of the wound post debridement is stable (30733) Debride skin and subQ Open wound Physician [...] of the wound post debridement is stable (84145) Keratoma Treatment Parring or Cutting o f Benign Hyperkeratotic Lesion(s) (-56) 2-4 Lesions - The Benign hyperkeratotic lesions, ( 4) in total, locations as stated and described in exam, were pared, and/or cut utilizing a sterile 15 blade, tissue nippers, and/or power [employer] instrumentation - 01860 Progress Notes * Karthikeyan LAM ADOB: [birth year] (83 yo M)Acc No.[id number]:04/19/2024 Progress Note Patient:?Karthikeyan LAM A Provider:?Mic Mo DPM :1940???Age:83 Y???Sex:Male Lex e:04/19/2024 Address:[address] [place], [place] [phone] Pcp:Jos Mirza MD Subjective: * Chief Complaints: [...] and surgical debridement. 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 3.?Skin ulcer of toe of left foot, limited to breakdown of skin?Procedure: 61552- Debride <25 sq cm Notes: Patient Educated [...] use of a nail nipper and/or dremel-type needle grinder, to a more viable healthy nail [...] to maintain effectiveness in symptomatic relief - 39109.?Debride skin and subQ:?Open wound?Physician of record performed [...] of the wound post debridement is stable (82590).?Debride skin< 25 sq cm:?Open wound?NEUROPATHY: Physician of [...] of the wound post debridement is stable (26557).?Keratoma Treatment:?Parring or Cutting of Benign Hyperkeratotic Lesion(s)?(-56) 2-4 Lesions - The Benign hyperkeratotic lesions, ( 4) in total, locations as stated and described in exam, were pared, and/or cut utilizing a sterile 15 blade, tissue nippers, and/or power dremel instrumentation - 89155.? * Procedure Codes:?69215 DEBRI DE SKIN/TISSUE, Modifiers: XS 34667 ACTIVE WOUND CARE/20 CM OR <, Modifiers: XS 64833 DEBRIDE NAIL, 6 OR MORE, Modifiers: XS 65617 TRIM SKIN LESIONS, 2 TO 4, Modifiers: [...] adverse events including amputation, CONT Referral to [facility] Wound Care Center due to pedal risk of limb/life.? * Follow Up:?prn * Images: * Sign off status: Completed true * Provider:?Mic Mo DPM Date:?2023 Generated for Nighat neely/Duncan/Melo on:?07/22/2024 08:31 AM EST History and Physical Notes * [...] and surgical debridement. Regular follow up with [facility] Wound Care clinic with Silver Alginate to wounds At Risk footcare Pt States Last PCP Visit: Date: 01/12/2024 [facility] [place] , [place], is [...]
[2024-07-22 13:51] LABS: Estimated Average Glucose 128 mg/dL; Hemoglobin A1C 129.5256 umol/L; Hemoglobin A1c % 6.1 % (<6.0); Total Hemoglobin (HGBA1C) 2971.8003 umol/L
== END 2024-07-22 09:47 | disposition home or self-care (01) ==
LOC: HO.MANLDS 09:46
PROVIDERS: Visit Provider Internal Medicine
DX: E11.9 Type 2 diabetes mellitus without complications (principal)
CPT/HCPCS: 36415; 83036

== ENCOUNTER 2024-10-26 08:16 | Outpatient (REF) | payer MEDICARE, SELFPAY ==
--- OUTSIDE RECORDS SUMMARY | 2024-10-26 08:22 | XMS_ITS ---
[facility] Address [address] [place] [address] Care Team Providers Care Community Health Education Coordinator Name Role Phone Hermes MILIAN, Jos Primary Care Provider Mic Thibodeaux Unavailable [phone] Allergies Allergen (clinical drug ingredient) Drug/Non Drug Allergy documented on EMR Reaction Allergy Type Onset Date Status Adhesive Tape rash, itching Drug Allergy Active Latex Latex Unknown Allergy Active omeprazole Omeprazole legs swelling, kidney issues Drug Allergy Active REASON FOR VISIT At Risk Footcare, Toe Irritation Medications Medication SIG (Take, Route, Frequency, Duration) Notes Start Date End Date Status Aspirin 81 MG 1 tablet Orally Once a day Not-Taking Extra Depth Orthopedic Shoes (1 Pair) with Customized Heat Molded Multidensity Innersoles (3 Pair) as directed Dx: NIDDM/Polyneuropathy (E11.42), Hammertoe Foot Deformity (M20.41,M20.42), Preulcerative Skin Lesion(s) (L85.1 Active Flaxseed Oil 1000 MG Orally Not-Taking Losartan Potassium 100 MG 1 tablet Orally Once a day Not-Taking INVanz Not-Taking Probiotic Not-Taking Iodosorb 0.9 % as directed External ly Apply to ulceration daily with dry sterile dressing for 30 days 10/01/2021 Not-Taking Fish Oil 1000 MG 1 capsule Orally Onc e a day Not-Taking Omeprazole 20 MG 1 capsule 30 minutes before morning meal Orally Once a day for 30 day(s) Not-Taking Vitamin C 1000 MG 1 tablet Orally Once a day Not-Taking Probiotic Not-Taking Pantoprazole Sodium 20 MG 1 tablet Orally Once a day Not-Taking Doxycycline Monohydrate 100 MG 1 capsule Orally Once a day for 10 day(s) Not-Taking Cephalexin 500 MG 1 capsule Orally ojan ry 8 hrs for 10 days Not-Taking Calcium 600 MG 1 tablet with meals Orally Once a day Not-Taking Vitamin B12 1000 MCG 1 tablet Orally Onc e a day Active Vitamin D3 1000 UNIT 1 capsule Orally On ce a day Active NIFEdipine ER 90 MG 1 tablet on an empty stomach Orally Once a day Active Multi Vitamin Active Metoprolol Succinate 25 MG 1 capsule Orally Once a day for 30 day(s) Active hydrALAZINE HCl 25 MG 1 tablet with food Orally Three times a day Active Clopidogrel Bisulfate 75 MG 1 tablet Orally Once a day for 30 day(s) Active Social History Tobacco Use: Social History Observation Description Date Details (start date - stop date) Never Smoker NA - NA Tobacco use other than smoking: Question Answer Notes Are you an other tobacco user? No Tobacco Control (Standard) Question Answer Notes Tobacco use: Nonsmoker Additional Findings: Tobacco non-user Current no nsmoker AUDIT-C (Standard) Question Answer Notes Did you have a drink containing alcohol in the p ast year? No Points 0 Interpretation Negative Vital Signs Height 6 ft 3 in in 10/25/2024 Weight 192 lbs 10/25/2024 BMI 24 kg/m2 10/25/2024 Blood pressure systolic 150 mm Hg 10/26/19 25 Blood pressure diastolic 80 mm Hg 025 Procedures Procedure Date Ordered Date Performed Result Body Sit e 54163-KNPQSND NAIL, 6 OR MORE 10/25/2024 N/A 51493-JHUE SKIN LESIONS, OVER 4 10/25/2024 N/A Encounters Encounter Location Date Provider Diagnosis [facility] [place] [address] [place] [address] 10/25/2024 Mic Mo Type 2 diabetes mellitus with diabetic polyneuropathy E11.42 ; Tinea unguium B35.1 ; Other hammer toe(s) (acquired), right foot M20.41 and Other hammer toe(s) (acquired), left foot M20.42 Assessments Encounter Date Diagnosis (ICD Code) Assessment Notes Treatment Notes Treatment Clinical Notes Section Notes 10/25/2024 Type 2 diabetes mellitus with diabetic polyneuropathy (ICD-10 - E11.42) 10/25/2024 Tinea unguium (ICD-10 - B35.1) 10/25/2024 Other hammer toe(s) (acquired), right foot (ICD-10 - M20.41) Patient Educated with: DIABETIC FOOT CARE INSTRUCTIONS. pdf (DIABETIC FOOT CARE INSTRUCTIONS. pdf) 10/25/2024 Other hammer toe(s) (acquired), left foot (ICD-10 - M20.42) 10/25/2024 Other Plan Of Treatment Medication Medication Name Sig Start Date Stop Date Notes Extra Depth Orthopedic Shoes (1 Pair) with Customized Heat Molded Multidensity Innersoles (3 Pair) as directed Dx: NIDDM/Polyneuropathy (E11.42), Hammertoe Foot Deformity (M20.41,M20.42), Preulcerative Skin Lesion(s) (L85.1 Treatment Notes Assessment Notes Other hammer toe(s) (acquired), right fo ot Patient Educated with: DIABETIC FOOT CARE INSTRUCTIONS.pdf (DIABETIC FOOT CARE INSTRUCTIONS.pdf) Pending Test Test Name Order Date [id number]-KLEOIFC NAIL, 6 OR MORE 10/25/2024 69183-KXSC SKIN LESIONS, OVER 4 10/26/19 25 Next Appt Details Follow Up: prn, Reason: Provider Name:Mic Mo , 01/31/2025 10:45:00 AM, [address] [place] [address], [phone], Procedure Notes * Category Sub-Category Detail Notes Debride Nail 6-10 Nail debridement Due to the cl inical pathology outlined in the exam findings, performance of this nail treatment is medically necessary as its management by an unskilled/untrained nonprofessional would put this patients foot and overall health at risk. Therefore, debridement to affected nail(s), as described in exam ( TA, T1, T2, T3, T4, T6 , T7 , T8 , T9 ), was performed exclusively by the physician of record to reduce/remove overall nail length, girth, thickness, subungual debris, and necrotic tissue, by manual and/or electrical means through the use of a nail nipper and/or dremel-type cinnamon grinder, to a more viable healthy nail [...] to maintain effectiveness in symptomatic relief - 19170 Keratoma Treatment Parring or Cutting o f Benign Hyperkeratotic Lesion(s) (-57) More than 4 Lesions - Due to the at risk nature of the patients medical condition as documented in the exam findings, performance of this keratoderma treatment is medically necessary as its management by an unskilled/untrained nonprofessional would put this patients foot and overall health at risk. Therefore, the benign hyperkeratotic lesions, (5) in total, locations as stated and described in the exam ( Plantar, T7, SUB MTH (s), 1, B/L, Plantar, Heel(s), B/L ), were pared, and/or cut utilizing a sterile 15 blade, tissue nippers, and/or power dremel instrumentation by the physician of record - 35819 Progress Notes * Karthikeyan LAM ADOB: (84 yo M)Acc No.[id number]:10/25/2024 Progress Note Patient:?Karthikeyan LAM A Provider:?Mic Mo DPM :1940???Age:84 Y???Sex:Male Lex e:10/25/2024 Address:[address] [place], [place] [id number] Pcp:Jos Mirza MD Subjective: * Chief Complaints: * ???At Risk FootcareToe Irrit ation * HPI: ???At Risk footcare:?Pt States Last PCP Visit:?Date?10/11/2024 ???Toe pain:?Location:?B/L feet.?Duration:?several years.?Course:?worse.?Aggravated by:?shoes, any pressure.?Treatments:?change in shoes.? * ROS:?General/Constitutional:?Nausea?denies.?Vomiting?denies.?Hunger Thirst?denies.?Loss appetite?denies.?Chills?denies.?Fatigue?denies.?Fever?denies.?Night Sweats?denies.?Unexplained weight loss?denies.?Unexplained weight gain?denies.?HEENTM:?Dentures?denies.?Dizziness?denies.?Glasses/contacts?admits.?Retinopathy?den ies.?Blurred/double vision?denies.?TMJ?denies.?Discharge/drainage?denies.?Implants?denies.?Sore throat?denies.?Dental implants?denies.?Hard of hearing ?denies.?Difficulty chewing/swallowing/speaking?denies.?Nose bleeds?denies.?Sore mouth?denies.?Respiratory:?On O xygen?denies.?Pneumonia/pleurisy?denies.?Bronchitis?denies.?Emphysema?denies.?Co ughing?denies.?Cough blood?denies.?Shortness of breath?denies.?Wheezing?denies.?Cardiovascular:?Pacemaker?denies.?MVP?denies.?WPW?denies.?CHF?denies.?Heart attack?denies.?Septal defect?denies.?Rapid beat?admits.?Chest pain ?denies.?Atrial Fib.?denies.?Murmur/Palpitations?denies.?Gastrointestinal:?Hemorrhoids?denies.?Stomach/Abdominal pain?denies.?Dark blood stool?denies.?Irritable bowel ?denies.?Constipation?denies.?Diarrhea?denies.?Hematology:?Swelling?admits.?Clots?denies.?Varicose Veins?denies.?Bruising?admits, on aspirin.?Bleeding problem?admits, on anticoagulants.?Genitourinary:?Blood urine?denies.?Frequent/Painfu/urination/bladder control?denies.?Kidney stones?denies.?Infection (UTI)?denies.?Nephropathy?admits.?sex trans dis (STD)?denies.?Prostate?denies.?Musculoskeletal:?Hammertoes?admits.?Bunions?denies.?Back Pain?denies.?Muscle Cramps/ Resting?denies.?Muscle cramps / walking?denies.?Generalized aches and pains?denies.?Weakness?denies.?Integ.:?Mccullough?denies.?Scars?denies.?Corns/calluses?admits.?Ingrown nails?admits.?Painful nails?denies.?Open Sores?denies.?Rashes?denies.?Neurologic:?Difficulty sleeping?denies.?Brain disorder?denies.?Numbness?admits.?Balance t rouble?denies.?Confusion?denies.?Fainting/blackouts?denies.?Tingling?denies.?Khris mors?denies.? * Medical History:? * Surgical History:[facility] 05/31/2021endoscopy 03/15,05/15Right 2nd toe for osteo 07/17/23torn retna cataract surgery amputation, right great toe - 08/18/23 * Hospitalization/Major Diagno stic Procedure:?[place] [facility] toe infections 05/20/17[facility] toe [facility] 01/15-01/21[facility] - infection toe 07/10/2018[facility]-Infection in toe antibiotics 42 days 12/04/2020 * Family History:?Mother: dece ased, diagnosed with Other malignant neoplasm of unspecified site, Unspecified essential hypertension.?Father: , diagnosed with Other malignant neoplasm of unspecified site, Unspecified heart disease.?Spouse: .?Maternal aunt: diagnosed with Diabetic - NIDDM.?Siblings: diagnosed with Other malignant neoplasm of unspecified site, Unspecified essential hypertension.? * Social History:?Tobacco Use:?Tobacco use other than smoking?Are you an other tobacco user??No ?Tobacco Control (Standard)?Tobacco use:?Nonsmoker ?Additional Findings: Tobacco non-user?Current nonsmoker ???Drugs/Alcohol:?Drugs?Have you used drugs other than those for medical reasons in the past 12 months??No ???Miscellaneous:?Caffeine: yes, frequency:, 1/2 cups per day. ?Children: yes. ?Exercise: yes, lifting, pedaling scifit, gardening, senior center. ?Marital status: . ?Occupation: Retired- [employer]. ???Drug/Alcohol:?AUDIT-C (Standard)?Did you have a drink containing alcohol in the past year??No ?Points?0 ?Interpretation?Negative * Medications:?TakinghydrALAZI NE HCl 25 MG Tablet [...] Objective: * Vitals:?Ht: 6 ft 3 in, Wt: 1 92, BMI: 24, Shoe size: 13, BP: 150/80 mm Hg, BS: 122, Wt-k.09 kg. * ???Past Orders: ???Lab:HEMOGLOBIN A1C (GLYCO HEMOGLOBIN) (Order Date - 07/22/2024) (Collection Date & Time - 10/25/2024 09:15 AM) ? Value Reference Range ?HEMOGLOBIN A1C % (HH) 6.1 * Examination: ???Ophthalmology Referral: ?DIABETES EYE EXAM?Procedure Performed:?Yes ?Date of Exam Performed?10/19/2024 ?Diabetic Retinopathy Screening:?Yes ?Retinal Screening Performed:?Yes ?Findings of Diabetic Eye Exam:?no retinopathy?Neurological: ?SENSORY:?Neurological exam demonstrates, reduced light touch sensation, reduced sharp/dull discrimination , reduced vibration sensation, reduced proprioception sensation, B/L, 5.07 monofilament test performed at plantar aspects of 5 varied sites per foot shows sensation, reduced, B/L.?Nails: ?NAILS are:?Elongated, overgrown, dystrophic, lytic, greater than 3mm thick, discolored and friable with crumbly malodorous subungual debris,?TA, T1, T2, T3, T4, T6 , T7 , T8 , T9 (AMPUTATION, T5).?Dermatologic: ?SKIN FINDINGS:?Skin exam reveals Keratotic lesion(s) located at , Plantar, T7, SUB MTH (s), 1, B/L, Plantar, Heel(s), B/L.?ULCER:?NOW shows complete re-epithelialization, Plantar, T7.?Orthopedic: ?MUSCLE STRENGTH:?5/5 all groups in a symmetrical fashion, B/L.?FOOT MORPHOLOGY:?Pes Planus structure , (-) Charcot collapse/destruction noted at [facility].?DIGITAL DEFORMITIES:?Amputation T5, Digital contracture, IPJ/PIPJ, TA, T1, T9, incompl-reducible to push-up test, no over, nor underlapping , with evidence of shoe producing skin irritation.?FOOTWEAR EVALUATION:?worn, OT were inspected and noted to be severely worn , in poor condition not giving proper support at the present time, shoe gear properties exacerbate patient's foot/toe deformity .?Vascular: ?DP PULSES (B):?0/4, B/L.?PT PULSES (B):?0/4, B/L.?CAPILLARY FILL TIME:?delayed, all digits, B/L.?TROPHIC CONDITION-TEXTURE/ELASTICITY/TURGOR/HAIR GROWTH (B):?decreased, B/L.?TEMPERTURE GRADIENT (C):?decreased, cool to cool, proximal to distal, B/L.?PIGMENTATION:?mottled, B/L.?EDEMA (C):?2/4, non-pitting, without aching pain, Left, Ankle(s) - states due to hx Fx/OA.?CLAUDICATION (C):?denies, B/L.?REST PAIN:?denies, B/L.?General Examination: ?GENERAL APPEARANCE:?Reveals a pleasant, alert, well nourished, well developed, well hydrated individual, who demonstrates proper attention to hygiene/body habitus, and is in no acute distress , Pt serves as own historian for office visit today?.?ORIENTED:?person, place, and time.?FOOT EXAM:?Lower Extremity Neurological Exam performed:?Yes ?Visual exam of foot performed:?Yes ?Date?10/25/2024 ?Footwear Evaluation?Footwear Evaluation performed:?Yes??? Assessment: * Assessment: 1.?Type 2 diabetes mellitus with diabetic polyneuropathy - E11.42 (Primary)???2.?Tinea unguium - B35.1???3.?Other hammer toe(s) (acquired), right foot - M20.41???Specify :Chronic problem, Worse (4),Rx Management (4)???4.?Other hammer toe(s) (acquired), left foot - M20.42???Specify :Chronic problem, Worse (4),Rx Management (4)??? Plan: * Treatment: 2.?Other hammer toe(s) (acqu ired), right foot? Start Extra Depth Orthopedic Shoes (1 Pair) with Customized Heat Molded Multidensity Innersoles (3 Pair), as directed, Dx: NIDDM/Polyneuropathy (E11.42), Hammertoe Foot Deformity (M20.41,M20.42), Preulcerative Skin Lesion(s) (L85.1, 1, Refills 0.?? Notes: Patient Educated with: DIABETIC FOOT CARE INSTRUCTIONS.pdf (DIABETIC FOOT CARE INSTRUCTIONS.pdf)?? * Procedures:?Debride Nail 6-10:?Nail debridement?Due to the clinical pathology outlined in the exam findings, performance of this nail treatment is medically necessary as its management by an unskilled/untrained nonprofessional would put this patients foot and overall health at risk. Therefore, debridement to affected nail(s), as described in exam (?TA, T1, T2, T3, T4,?T6?,?T7?,?T8?,?T9?), was performed exclusively by the physician of record to reduce/remove overall nail length, girth, thickness, subungual debris, and necrotic tissue, by manual and/or electrical means through the use of a nail nipper and/or dremel-type cinnamon grinder, to a more viable healthy nail plate or bed tissue 6- 10 nails in total. Silver nitrate was used for any petechial bleeding as necessary. Definitive antifungal treatment options, both pharmaceutical and surgical, have been reviewed and discussed with the patient. The patient solely prefers the use of intermittent/as needed professional debridement services for their nail condition and understands the need for additional periodic treatments to maintain effectiveness in symptomatic relief - 97587.?Keratoma Treatment:?Parring or Cutting of Benign Hyperkeratotic Lesion(s)?(-57) More than 4 Lesions - Due to the at risk nature of the patients medical condition as documented in the exam findings, performance of this keratoderma treatment is medically necessary as its management by an unskilled/untrained nonprofessional would put this patients foot and overall health at risk. Therefore, the benign hyperkeratotic lesions, (5) in total, locations as stated and described in the exam ( Plantar, T7, SUB MTH (s), 1, B/L, Plantar, Heel(s), B/L ), were pared, and/or cut utilizing a sterile 15 blade, tissue nippers, and/or power dremel instrumentation by the physician of record - [id number].? * Procedure Codes:?27761 DEBRI DE NAIL, 6 OR MORE, Modifiers: XS 87485 TRIM SKIN LESIONS, OVER 4, Modifiers: XS * Preventive Medicine:? ??Counseling:?Discussion:?-14: Office or other outpatient visit for the evaluation and management of an established patient, which required a medically appropriate history and/or examination and MODERATE level of DECISION MAKING for: 1 OR MORE CHRONIC PROBLEM(S) THATS WORSENING, 2 STABLE CHRONIC PROBLEMS, A NEWLY DIAGNOSED PROBLEM WITH UNCERTAIN PROGNOSIS, AN ACUTE COMPLICATED INJURY WITH MULTIPLE TREATMENT OPTIONS, OR AN ACUTE PROBLEM WITH ACCOMPANYING SYSTEMIC SYMPTOMS, THAT POSE(S) A MODERATE RISK OF MORBIDITY. THIS CONDITION MAY ALSO INCLUDE RX DRUG MANAGEMENT, OR A DECISON FOR MINOR SURGERY. The visit on the day of the [...] have encouraged the patient to call the office.?Diabetic Footcare:?The patient was advised against future self nail/callus care due to inherent risks for infection, loss of limb/life given diabetes, neuropathy, peripheral vascular disease.?Digital Surgery:?Digital surgery was discussed with the patient, We elected to try conservative treatment at the present time, due to the patients medical history and increased asssociated post-operative risks.?Digital Treatment:?HT- I explained to the patient the possible etiologies of Hammertoes, including genetics/foot type/shoegear/activity level/exercise routine and the risks/benefits of all the different treatment options for their pain including: No treatment at all, Rest, Ice, New/supportive/wider/deeper Shoegear, Digital Padding/Strapping/Taping/Bracing/Gel protective sleeves, Foot/Ankle AFO Bracing, Stretching exercises, Deep Tissue Massage, Arch support/shoe inserts with splay metatarsal padding, and Custom orthoses. I insisted that any digital devices be removed daily and not worn overnight for safety. The patient is to carefully examine the toes daily for any skin irritation while using any splinting or padding device. The advantages and disadvantages of each option were discussed and the patients questions re: shoegear, padding, custom vs prefabricated inserts, activity level, and consistency in home treatment regimens for optimal success were answered to their verbally confirmed satisfaction.?Shoe Gear Counseling:?SHOE Rx - The patient was counseled in great detail on their muscoloskeletal foot and toe deformities which coincided with the dermatological presentations visualized on exam. We discussed how their deformities put the integrity of their feet at risk for potential pedal complications which makes the accomidative diabetic shoes and cutomizable inserts medically necessary. We discussed the different shoe and insert treatment types and options, as well as the important advantages for adhering to regularly wearing these accomidative devices daily. The patient was made aware of the fact that a failure to abide by these recommedations may be deleterious to their foot health as they are able to prevent many pedal complications such as skin irritation, skin ulceration, infection, and even loss of toe/foot/leg/or life. Time was also spent with the patient dispensing and discussing proper diabetic footcare techniques including daily skin moisturization, daily foot inspection for any interruption in skin integrity including open lesions, or sign of infection such as redness/malodor/drainage/swelling. Also discussed and recommended were procedures regarding daily shoe inspection for the presence of internal foreign bodies as well as any visualized irregular shoe or insert wear. Patient questions re: shoes, inserts, and self foot inspections were answered to their satisfaction as the patient verbally confirmed a full understanding of the above information. A Rx for Extra Depth Orthopedic Shoes with 3 pair of custom heat-molded inserts was dispensed WITH TOE FILL FOR T5.?Ulcer:?A detailed plan of care was reviewed with [...] increase their risk of adverse events including amputation. The patient was instructed on importance of proper wound care consisting of pressure reduction, and proper maintainance of a moist wound environment. The patient is to cleanse the wound with warm soapy water/peroxide/saline, or betadine BID based on product availability. The patient is to apply ( Zinc) Antibiotic to the wound and cover [...] medication as directed, Debridement frequency as indicated, no Wound care referral at present due to right foot responsibilities.? ??Screening/Special Tests:?Fall Risk?Screening:?No falls in the past year ?FALLS: Screening for Future Fall Risk?Have you had any falls with injury in the past year??No * Follow Up:?prn * Images: * Sign off status: Completed true * Provider:?Mic Mo DPM Date:?2024 Generated for Nighat neely/Duncan/Melo on:?10/26/2024 08:21 AM EDT History and Physical Notes * HPI (History of Present Illness) Category Sub-Category Detail Notes Category Not es Toe pain Location: B/L feet Duration: several years Course: worse Aggravated by: shoes, any pressure Treatments: change in shoes At Risk footcare Pt States Last PCP Visit: Date: Examination Category Sub-Category Detail Notes Category Not es Neurological SENSORY: Neurological exa m demonstrates, reduced light touch sensation, reduced sharp/dull discrimination , reduced vibration sensation, reduced proprioception sensation, B/L, 5.07 monofilament test performed at plantar aspects of 5 varied sites per foot shows sensation, reduced, B/L Dermatologic SKIN FINDINGS: Skin exam reveal s Keratotic lesion(s) located at , Plantar, T7, SUB MTH (s), 1, B/L, Plantar, Heel(s), B/L ULCER: NOW shows complete r e-epithelialization, Plantar, T7 Orthopedic FOOT MORPHOLOGY: Pes Planus stru cture , (-) Charcot collapse/destruction noted at [facility] FOOTWEAR EVALUATION: worn, OT were inspe cted and noted to be severely worn , in poor condition not giving proper support at the present time, shoe gear properties exacerbate patient's foot/toe deformity DIGITAL DEFORMITIES: Amputation T5, Digi ferny contracture, IPJ/PIPJ, TA, T1, T9, incompl-reducible to push-up test, no over, nor underlapping , with evidence of shoe producing skin irritation MUSCLE STRENGTH: 5/5 all groups in a symmetrical fashion, B/L General Examination GENERAL APPEARANCE: Reveals a pleasant, alert, well nourished, well developed, well hydrated individual, who demonstrates proper attention to hygiene/body habitus, and is in no acute distress , Pt serves as own historian for office visit today FOOT EXAM: Lower Extremity Neurological Exa m performed:: Yes Visual exam of foot performed:: Yes Date: 10/25/2024 ORIENTED: person, place, and t daquan Footwear Evaluation Footwear Evaluation performe d:: Yes Ophthalmology Referral DIABETES EYE EXAM Procedure Perform ed:: Yes ?Date of Exam Performed: 10/19/2024 Diabetic Retinopathy Screening:: Yes Retinal Screening Performed:: Yes Findings of Diabetic Eye Exam:: no retin opathy Vascular DP PULSES (B): 0/4, B/L PT PULSES (B): 0/4, B/L CAPILLARY FILL TIME: delayed, all digits , B/L TEMPERTURE GRADIENT (C): decreased, cool to cool, proximal to distal, B/L TROPHIC CONDITION-TEXTURE/ELASTICITY/TURGOR/HAIR GROWTH (B): decreased, B/L EDEMA (C): 2/4, non-pitting, wi thout aching pain, Left, Ankle(s) - states due to hx Fx/OA CLAUDICATION (C): denies, B/L REST PAIN: denies, B/L PIGMENTATION: mottled, B/L Nails NAILS are: Elongated, overg rown, dystrophic, lytic, greater than 3mm thick, discolored and friable with crumbly malodorous subungual debris, TA, T1, T2, T3, T4, T6 , T7 , T8 , T9 (AMPUTATION, T5)
[2024-10-26 13:33] LABS: Estimated Average Glucose 128 mg/dL; Hemoglobin A1c % 6.1 % (<6.0)
[2024-10-26 13:44] LABS: Magnesium 2.2 mg/dL (1.6-2.6)
== END 2024-10-26 08:17 | disposition home or self-care (01) ==
LOC: HO.MANLDS 08:16
PROVIDERS: Visit Provider Internal Medicine
DX: E11.9 Type 2 diabetes mellitus without complications (principal)
CPT/HCPCS: 36415; 82306; 83036; 83735

== ENCOUNTER 2024-12-05 13:59 | Outpatient (AMB) | payer MEDICARE, SELFPAY ==
--- NOTE | 2024-12-05 14:22 | A.OFFVIS_ITS ---
Vital Signs 12/05/24 14:24 Height 6 ft 3 in Weight 194 lb BMI 24.2 BP 140/82 H Blood Pressure Location Rt brachial Position Sitting Pulse 69 Pulse Source Pulse Oximeter Intake Visit Reasons: 3m follow up Intake Note: 3 mth f/up Detective Chief Required: No Accompanied by: Self / Same As Patient Allergies latex Adverse Reaction (Unknown, Uncoded 10/13/23 09:18) itchy since picc line has been put in Medication List - Last Reconciled 12/05/24 by Issa Degroot MD clopidogrel 75 mg PO DAILY hydralazine 25 mg PO TID metoprolol succinate ER 50 mg PO DAILY nifedipine ER 90 mg PO DAILY vitamin B complex (B Complex-Vitamin B12 tablet) 1 tab PO DAILY HPI Comments Details: 83-year-old gentleman here for follow-up. He has background history of chronic kidney disease, hypertension, mild aortic valve stenosis and supraventricular tachycardia versus atrial tachycardia. Clinically doing well. No chest pain or shortness of breath. EKG showing sinus rhythm at this point. He has white coat hypertension. Taking meds regularly. 05/20/2023: He returns for follow-up. In February 2023 he got admitted to the hospital with pneumonia and was given IV fluids for resuscitation and developed heart failure. He also had episode of atrial tachycardia while he was in the hospital and required amiodarone short term. He was diuresed and improved. He had diabetic foot infection and underwent angiography by vascular surgery with angioplasty of anterior tibial artery and peroneal artery on the left side. He was on aspirin and Plavix but apparently had a lot of groin who is an bleeding and both medications were stopped and it appears he has not started them since then. He also had left eye retinal detachment and underwent surgical treatment for that. He is following closely with [facility]. 10/21/23: He returns for follow-up. He underwent surgery for retinal detachment and also had cataract surgery. He still has ongoing visual issues and is seeing a retina specialist. He has no chest pains or shortness of breath. He has been fairly inactive due to right great toe amputation. He is following with v ascular surgery closely. He is currently taking Plavix 75 mg daily. Blood pressure control is okay. 06/22/2024: He is here for follow-up. He had toe amputation and things improved after that. He also had angioplasty of no extremity by vascular surgery. He is taking Plavix monotherapy. No bleeding issues. Denying any leg pain. His is on hospice and he is under a lot of stress and was quite emotional and tearful. He said while he was with her in the hospital 1 day as he turn he just fell to the ground and he does not remember what happened. He is denying any dizziness or lightheadedness otherwise. No chest discomfort or shortness of breath. Echocardiography previously has shown moderate . 12/05/2024: He is here for follow-up. He has not been physically active since the of his . Still very emotional and tearful. His echocardiography has shown moderate aortic valve stenosis. Blood pressure mildly elevated but he has been told by his primary care physician that he has white coat hypertension. [facility] Medical History PAD (peripheral artery disease) CKD (chronic kidney disease) stage 4, GFR 15-29 ml/min HTN (hypertension) Osteomyelitis Sepsis Diabetic neuropathy History of osteomyelitis Aortic stenosis Cellulitis of foot Heart murmur Kidney disease Diabetes Surgical History Hx of colonoscopy Hx of esophagogastroduodenoscopy History of hammer toe correction (~05/2021) Family History Father Heart attack CVD (cardiovascular disease) Mother Colon cancer Social History Household Members: Spouse Housing: House Do you presently have visiting nurse or other home services: No Unable to assess alcohol history related to: Unable to respond Alcohol intake: never Patient Tobacco Use Status: Never used Tobacco Advance Directives Date on File: 04/14/23 service: No Current occupational status: retired Review of Systems Const Denies chills, Denies fatigue, Denies fever(s), Denies frequent falls, Denies weakness, Denies weight gain and Denies weight loss ENT Denies dizziness Card Denies chest pain, Denies leg edema, Denies lightheadedness, Denies palpitations, Denies dyspnea and Denies dyspnea on exertion Resp Denies cough, Denies dyspnea and Denies dyspnea on exertion GI Denies hematochezia Musc Denies abnormal gait, Denies muscle weakness, Denies numbness, Denies radiating pain into limb and Denies tingling Neuro Denies abnormal gait, Denies dizziness, Denies frequent falls, Denies numbness, Denies tingling and Denies weakness Endo Denies fatigue and Denies palpitations Physical Exam Vital Signs: Last Vital Signs Pulse 69 12/05/24 14:24 BP 140/82 H 12/05/24 14:24 BMI result Body Mass Index 24.2 GENERAL APPEARANCE: in no acute distress, pleasant. NECK: no carotid bruit, no jugular venous distention. Normal carotid upstrokes. SKIN: no suspicious lesions, warm and dry. HEART: Ejection systolic murmur aortic area with feeble 2nd heart sound, regular rate and rhythm. LUNGS: Clear to auscultation. ABDOMEN: soft, nontender. EXTREMITIES: Mild edema. PERIPHERAL PULSES: equal. NEUROLOGIC: No gross deficits, AAO X 3 Assessment & Plan Assessment & Plan (1) Aortic stenosis: Code(s): I35.0 - Nonrheumatic aortic (valve) stenosis Category: Medical (2) Hypertension: Code(s): I10 - Essential (primary) hypertension Category: Medical Plan Pleasant 84 year gentleman with moderate aortic valve stenosis, chronic kidney disease, atrial tachycardia in the past and diastolic heart failure. Clinically he is stable and does not appear to be in heart failure. He has some peripheral edema related to nifedipine. Blood pressure is mildly elevated. I have advised him to check blood pressure at home and keep a log and call us in 7-10 days. On Plavix for peripheral vascular disease. Follow up with us in few months. Thank you for allowing me to participate in the care of your patient. Please feel free to contact me if you have any questions. Coding Level of Care Code Est Pt Level 4 (37682) Diagnoses Aortic stenosis I35.0 Hypertension I10
[2024-12-05 14:24] VITALS: BP 140/82; PULSE 69; BMI 24.2
--- OUTSIDE RECORDS SUMMARY | 2024-12-05 15:21 | XMS_ITS | Patient Health Record ---
Author Organization [facility] Address [address] [place] [id number] Care Team Providers Care Ecosystem Ecology Professor Name Role Phone Jos Mirza Primary Care Provider Too Torres Jr Unavailable [phone] Allergies Allergen (clinical drug ingredient) Drug/Non Drug Allergy documented on EMR Reaction Allergy Type Onset Date Status Latex Latex Unknown Allergy Active Reason For Referral No Information [...] ce a day for 30 day(s) Active Immunizations Vaccine Route Administration Date Status Comme nts Influenza Unknown 02/10/2019 Administered Influenza Unknown 03/26/2021 Administered Influenza Unknown 03/11/2022 Administered Social History Tobacco Use: Social History Observation Description Date Details (start date - stop date) Never Smoker NA - NA Tobacco Use/Smoking Question Answer Notes Patient is [...] Never (0 point) Points 1 Interpretation Negative Problems Problem Type SNOMED Code ICD Code Onset Dates Problem Status W/U Status Risk Notes Problem 94045280 Other dysphagia (R13.19) Active confirmed Problem Dysphagia (53111964) Dysphagia (R13.10) Active confirmed Problem 99010863 Esophageal stricture (K22.2) Active confirmed Problem 92985191 Gastric polyp (K31.7) Active confirmed Problem 69962055 Achalasia (K22.0) Active confirmed Problem 510648188 Regurgitation of food (R11.10) Active confirmed Problem 90369966 Hypertension, unspecified type (I10) Active confirmed Plan Of Treatment Future Test Test Name Order Date UPPER GI ENDOSCOPY BALLOOON DILATION OF ESOPH 03/11/2019 UPPER GI ENDOSCOPY BALLOOON DILATION OF ESOPH 02/17/2022 UPPER GI ENDOSCOPY 03/12/2022 Insurance Providers Payer Name Payer Address Payer Phone Subscriber Number Group Number Insured Name Patient Relationship to Insured Coverage Start Date Coverage End Date [facility] [address] [place] [address] [phone] [id number] LUNA LAM Self - patient is the insured Medical (General) History Medical History History ICD Code Type 2 diabetes mellitus, neuropathy hypertension kidney disease, stage 3 LINDA/CPAP SVT Diabetic foot infection Aortic stenosis Surgical History Surgery Date(Month/Year) Hospitalization History Reason Date(Month/Year) [facility] [facility], bone infection 2020
--- OUTSIDE RECORDS SUMMARY | 2024-12-05 15:21 | XMS_ITS | Patient Health Record ---
[facility] Address [address] [place] [address] Care Team Providers Care Joint Machine Operator Name Role Phone Jos Mirza MD Primary Care Provider Mic Thibodeaux Unavailable [phone] Allergies Allergen (clinical drug ingredient) Drug/Non Drug Allergy documented on EMR Reaction Allergy Type Onset Date Status Adhesive Tape rash, itching Drug Allergy Active Latex Latex Unknown Allergy Active omeprazole Omeprazole legs swelling, kidney issues Drug Allergy Active Results Component Value Reference Range Notes HEMOGLOBIN A1C (GLYCOHEMOGLO BIN) Reviewed date:07/22/2024 02:04:06 PM Interpretation: Performing Lab: Notes/Report: HEMOGLOBIN A1C % (HH) 6.0 HEMOGLOBIN A1C (GLYCOHEMOGLO BIN) Reviewed date:10/25/2024 09:15:42 AM Interpretation: Performing Lab: Notes/Report: HEMOGLOBIN A1C % (HH) 6.1 Reason For Referral No Information Medications Medication SIG (Take, Route, Frequency, Duration) Notes Start Date End Date Status Vitamin B12 1000 MCG 1 tablet Orally Onc e a day Active Probiotic Not-Taking Vitamin D3 1000 UNIT 1 capsule Orally On ce a day Active Iodosorb 0.9 % as directed External ly Apply to ulceration daily with dry sterile dressing; Duration: 30 days 10/01/2021 Not-Taking Fish Oil 1000 MG 1 capsule Orally Onc e a day Not-Taking NIFEdipine ER 90 MG 1 tablet on an empty stomach Orally Once a day Active Omeprazole 20 MG 1 capsule 30 minutes before morning meal Orally Once a day; Duration: 30 day(s) Not-Taking Probiotic Not-Taking Aspirin 81 MG 1 tablet Orally Once a day Not-Taking Extra Depth Orthopedic Shoes (1 Pair) with Customized Heat Molded Multidensity Innersoles (3 Pair) as directed Dx: NIDDM/Polyneuropathy (E11.42), Hammertoe Foot Deformity (M20.41,M20.42), Preulcerative Skin Lesion(s) (L85.1 Active Pantoprazole Sodium 20 MG 1 tablet Orally Once a day Not-Taking Flaxseed Oil 1000 MG Orally Not-Taking Losartan Potassium 100 MG 1 tablet Orally Once a day Not-Taking Doxycycline Monohydrate 100 MG 1 capsule Orally Once a day; Duration: 10 day(s) Not-Edwardo ing INVanz Not-Taking Multi Vitamin Active Vitamin C 1000 MG 1 tablet Orally Once a day Not-Taking Metoprolol Succinate 25 MG 1 capsule Orally Once a day; Duration: 30 day(s) Active hydrALAZINE HCl 25 MG 1 tablet with food Orally Three times a day Active Cephalexin 500 MG 1 capsule Orally joan ry 8 hrs; Duration: 10 days Not-Takin g Clopidogrel Bisulfate 75 MG 1 tablet Orally Once a day; Duration: 30 day(s) Active Calcium 600 MG 1 tablet with meals Orally Once a day Not-Taking Immunizations Vaccine Route Administration [...] ast year? No Points 0 Interpretation Negative Problems Problem Type SNOMED Code ICD Code Onset Dates Problem Status W/U Status Risk Notes Problem Acquired hammer toe of right foot ([id number] ) Other hammer toe(s) (acquired), right foot (M20.41) Active confirmed Response to treatment, Improvemen t Problem Other hammer toe(s) (acquired), left foot (M20.42) Active confirmed Response to treatment, Improvemen t Problem Polyneuropathy due to type 2 diabetes mellitus (443525346) Type 2 diabetes mellitus with diabetic polyneuropathy (E11.42) Active confirmed Vital Signs Blood pressure diastolic 80 mm Hg 10/25/2024 Height 6 ft 3 in in 10/25/2024 Blood pressure systolic 150 mm Hg 10/25/2024 Weight 192 lbs 10/25/2024 BMI 24 kg/m2 10/25/2024 Procedures Procedure Date Ordered Date Performed Result Body Sit e 53797-PELJ SKIN LESIONS, OVER 4 10/25/2024 N/A 68053-VXNWAFJ NAIL, 6 OR MORE 10/25/2024 N/A 03201-LTLV SKIN LESIONS, 2 TO 4 02/02/2024 N/A 42313-FTUIDVK SKIN/TISSUE 02/02/2024 N/A 02232-DYAJFLM NAIL, 6 OR MORE 02/02/2024 N/A 87386-BHXU SKIN LESIONS, 2 TO 4 04/19/2024 N/A 11148-UQIFKAR SKIN/TISSUE 04/19/2024 N/A 65340- Debride <25 sq cm 04/19/2024 N/A 51256-VUJMBCB NAIL, 6 OR MORE 04/19/2024 N/A 21541-OFSK SKIN LESIONS, 2 TO 4 07/22/2024 N/A 34628- Debride <25 sq cm 07/22/2024 N/A 42384-JASKJEN NAIL, 6 OR MORE 07/22/2024 N/A Encounters Encounter Location Date Provider Diagnosis [address] [address] 02/02/2024 Mic Mo Type 2 diabetes mellitus with diabetic polyneuropathy E11.42 ; Tinea unguium B35.1 and Neuropathic ulcer of left foot with fat layer exposed L97.522 [facility] [address] [address] 04/19/2024 Mic Mchughier Type 2 diabetes mellitus with diabetic polyneuropathy E11.42 ; Tinea unguium B35.1 ; Neuropathic ulcer of left foot with fat layer exposed L97.522 ; Other hammer toe(s) (acquired), right foot M20.41 ; Other hammer toe(s) (acquired), left foot M20.42 and Skin ulcer of toe of left foot, limited to breakdown of skin L97.[address] [address] 07/22/2024 Mic Mo Type 2 diabetes mellitus with diabetic polyneuropathy E11.42 ; Tinea unguium B35.1 and Neuropathic ulcer of right foot, limited to breakdown of skin L97.[address] [address] 10/25/2024 Mic Mo Type 2 diabetes mellitus with diabetic polyneuropathy E11.42 ; Tinea unguium B35.1 ; Other hammer toe(s) (acquired), right foot M20.41 and Other hammer toe(s) (acquired), left foot M20.42 Assessments Encounter Date Diagnosis (ICD Code) Assessment Notes Treatment Notes Treatment Clinical Notes Section Notes 02/02/2024 Type 2 diabetes mellitus with diabetic polyneuropathy (ICD-10 - E11.42) 02/02/2024 Tinea unguium (ICD-10 - B35.1) 04/19/2024 Type 2 diabetes mellitus with diabetic polyneuropathy (ICD-10 - E11.42) 04/19/2024 Tinea unguium (ICD-10 - B35.1) 07/22/2024 Type 2 diabetes mellitus with diabetic polyneuropathy (ICD-10 - E11.42) 07/22/2024 Tinea unguium (ICD-10 - B35.1) 10/25/2024 Type 2 diabetes mellitus with diabetic polyneuropathy (ICD-10 - E11.42) 10/25/2024 Tinea unguium (ICD-10 - B35.1) 04/19/2024 Neuropathic ulcer of left foot with fat layer exposed (ICD-10 - L97.522) Response to treatment, improving, Unresolved Patient Educated with: WOUND CARE INSTRUCTIONS. pdf (WOUND CARE INSTRUCTIONS. pdf) 07/22/2024 Neuropathic ulcer of right foot, limited to breakdown of skin (ICD-10 - L97.511) Response to treatment Nonapplicable Patient Educated with: WOUND CARE INSTRUCTIONS. pdf (WOUND CARE INSTRUCTIONS. pdf) 10/25/2024 Other hammer toe(s) (acquired), right foot (ICD-10 - M20.41) Patient Educated with: DIABETIC FOOT CARE INSTRUCTIONS. pdf (DIABETIC FOOT CARE INSTRUCTIONS. pdf) 02/02/2024 Neuropathic ulcer of left foot with fat layer exposed (ICD-10 - L97.522) Response to treatment,Unresol ankur Patient Educated with: WOUND CARE INSTRUCTIONS. pdf (WOUND CARE INSTRUCTIONS. pdf) 04/19/2024 Other hammer toe(s) (acquired), right foot (ICD-10 - M20.41) Response to treatment,Improve ment 10/25/2024 Other hammer toe(s) (acquired), left foot (ICD-10 - M20.42) 04/19/2024 Other hammer toe(s) (acquired), left foot (ICD-10 - M20.42) Response to treatment,Improve ment 04/19/2024 Skin ulcer of toe of left foot, limited to breakdown of skin (ICD-10 - L97.521) Response to treatment improving Patient Educated with: WOUND CARE INSTRUCTIONS. pdf (WOUND CARE INSTRUCTIONS. pdf) 04/19/2024 Other 02/02/2024 Other 10/25/2024 Other Plan Of Treatment Pending Test Test Name Order Date X ray : Foot, left 3V 05/26/2023 71545-DHWGPRP NAIL, 6 OR MORE 11/21/2022 07374-GTAAJWZ NAIL, 6 OR MORE 03/01/2019 85275-QIJYTQN NAIL, 6 OR MORE 10/16/2017 98715-JAUACUC NAIL, 6 OR MORE 02/02/2024 35027-JBSXIQP NAIL, 6 OR MORE 09/24/2018 73540-UTXOVPD NAIL, 6 OR MORE 11/20/2023 35200-IMYQNIQ NAIL, 6 OR MORE 05/26/2023 05500-ITANKEQ NAIL, 6 OR MORE 12/22/2017 37603-VRZMOLA NAIL, 6 OR MORE 02/23/2018 38153-LBZSPPP NAIL, 6 OR MORE 05/07/2018 01613-RQKCOWV NAIL, 6 OR MORE 07/16/2018 83643-GKPCGHN NAIL, 6 OR MORE 12/10/2018 82855-XLURVLL NAIL, 6 OR MORE 05/31/2019 87290-FZVVOQW NAIL, 6 OR MORE 09/27/2019 11396-LYEFLUE NAIL, 6 OR MORE 03/30/2020 15079-ECMDLAH NAIL, 6 OR MORE 06/15/2020 31366-SIKLKAH NAIL, 6 OR MORE 09/14/2020 44766-OAKAUFD NAIL, 6 OR MORE 04/23/2021 20626-ADGIKLQ NAIL, 6 OR MORE 08/30/2021 49256-RDSDWQD NAIL, 6 OR MORE 11/15/2021 57905-SCMMFES NAIL, 6 OR MORE 02/07/2022 86710-QFMTYUW NAIL, 6 OR MORE 04/25/2022 44505-YPUTQWX NAIL, 6 OR MORE 07/01/2022 06419-RWANRHZ NAIL, 6 OR MORE 09/02/2022 74250-HFKCMYP NAIL, 6 OR MORE 01/30/2023 67432-LKQENBS NAIL, 6 OR MORE 04/19/2024 25761-JSBVUIR NAIL, 6 OR MORE 07/22/2024 17047-CGGFZPE NAIL, 6 OR MORE 10/25/2024 02746-FOAGNKZ NAIL, 6 OR MORE 01/03/2020 07983-GVEOYNJ NAIL, 1-5 08/11/2023 70684- Debride <25 sq cm 01/03/2020 38862- Debride <25 sq cm 07/22/2024 14151- Debride <25 sq cm 08/08/2022 37331- Debride <25 sq cm 07/01/2022 23527- Debride <25 sq cm 04/25/2022 41532- Debride <25 sq cm 12/20/2021 00275- Debride <25 sq cm 02/10/2020 17074- Debride <25 sq cm 05/26/2023 60841- Debride <25 sq cm 04/19/2024 01207-UATWUFU SKIN/TISSUE 02/02/2024 65858-UAEOISL SKIN/TISSUE 10/10/2019 88528-FXTAWDM SKIN/TISSUE 05/26/2023 34943-THDQKGU SKIN/TISSUE 11/20/2023 01326-RIMKJIH SKIN/TISSUE 03/30/2020 52575-GODNBHB SKIN/TISSUE 06/15/2020 06036-YPAFHWB SKIN/TISSUE 11/15/2021 37724-KAXOGOZ SKIN/TISSUE 09/10/2021 04733-LGHUFGM SKIN/TISSUE 10/01/2021 13646-KXLOLDW SKIN/TISSUE 08/30/2021 83079-ONHMFUL SKIN/TISSUE 12/26/2019 71395-DXPYZIH SKIN/TISSUE 02/10/2020 57753-BUTRHVN SKIN/TISSUE 03/19/2022 51176-PWKDMHZ SKIN/TISSUE 06/25/2022 58538-BWORWYX SKIN/TISSUE 10/25/2019 86167-QNOIKZP SKIN/TISSUE 01/30/2023 26041-ZAGSJHX SKIN/TISSUE 04/19/2024 78616-CTHRLBE SKIN/TISSUE 08/11/2023 09938 I&D ABSCESS- SIMPLE,SINGLE 020 99121-XZNJ SKIN LESIONS, OVER 4 03/01/20 19 51035-ZACP SKIN LESIONS, OVER 4 11/20/19 24 31100-YURI SKIN LESIONS, OVER 4 09/25/19 19 97376-PKBA SKIN LESIONS, OVER 4 10/17/19 18 07605-ZWXD SKIN LESIONS, OVER 4 05/26/19 24 02158-NGNW SKIN LESIONS, OVER 4 11/22/19 23 77175-NFQU SKIN LESIONS, OVER 4 01/31/20 23 13808-RLOR SKIN LESIONS, OVER 4 01/03/20 20 27246-CQTJ SKIN LESIONS, OVER 4 10/26/19 25 29194-LCON SKIN LESIONS, OVER 4 04/25/20 41952-RSON SKIN LESIONS, OVER 4 12/23/19 18 71170-CWLZ SKIN LESIONS, OVER 4 02/08/20 22 85120-DRSL SKIN LESIONS, OVER 4 07/01/19 23 08439-PDBS SKIN LESIONS, OVER 4 09/03/19 23 54570-SVCK SKIN LESIONS, OVER 4 09/27/19 20 74383-AYOJ SKIN LESIONS, OVER 4 05/31/19 20 37307-PSDR SKIN LESIONS, OVER 4 12/11/19 19 78702-BXZD SKIN LESIONS, OVER 4 07/16/19 19 30582-XLYS SKIN LESIONS, OVER 4 05/07/20 18 37018-LSHU SKIN LESIONS, OVER 4 02/24/20 18 81550-AGCX SKIN LESIONS, OVER 4 08/31/19 22 72609-UGLC SKIN LESIONS, OVER 4 04/23/20 21 21382-BXPW SKIN LESIONS, OVER 4 11/16/19 22 41639-DBWQ SKIN LESIONS, OVER 4 06/15/19 10122-SMTF SKIN LESIONS, OVER 4 09/15/19 76548-ZMZC SKIN LESIONS, OVER 4 03/30/20 79292-GLVN SKIN LESIONS, 2 TO 4 07/22/19 00790-THXI SKIN LESIONS, 2 TO 4 08/11/19 09045-VBVZ SKIN LESIONS, 2 TO 4 04/19/20 60541-GSPB SKIN LESIONS, 2 TO 4 02/02/20 Z7620-YWZDCFYX DYSTROPHIC NAILS ANY # 79630-Lsnwhtfqj, Toes 10/25/2019 63532 - Tenotomy, open flexor 01/13/2023 05821 - Tenotomy, open flexor 08/15/2022 62883 - Tenotomy, open flexor 07/15/2022 83912 - Tenotomy, open flexor 02/28/2020 99467 - Tenotomy, open flexor 09/03/2018 08853 - Tenotomy, open flexor 07/03/2020 Next Appt Details Provider Name:Mic Mo , 01/31/2025 10:45:00 AM, [address] [place], [address], Insurance Providers Payer Name Payer Address Payer Phone Subscriber Number Group Number Insured Name Patient Relationship to Insured Coverage Start Date Coverage End Date [employer]age [address] [place] [address] [id number] Karthikeyan Lazo Self - patient is the insured 4 Medical (General) History Medical History History ICD Code High blood pressure Kidney disease Numbness type II diabetes covid-19 Surgical History Surgery Date(Month/Year) [facility] 2nd hammer toe 05/31/2021 endoscopy 03/15,05/15 Right 2nd toe for osteo 07/17/23 torn retna cataract surgery amputation, right great toe - 08/18/23 Hospitalization History Reason Date(Month/Year) [facility]-Infection in toe antibiotics 42 da ys 12/04/2020 [facility] [place] 07/10/2018 [facility] for toe infection 01/15 -01/21 [facility] 05/20/17
--- OUTSIDE RECORDS SUMMARY | 2024-12-05 15:21 | XMS_ITS | Encounter Summary ---
Author Organization [facility] Address [address] [place] [address] Phone Care Team Providers Care City Designer Name Role Phone JuneJos laird DO Primary Care Provider [phone] Encounter Details Date Type Department Care Team (Late st Contact Info) Description 10/15/2022 Telephone [facility] [address] [place] [address] Mehnaz Lamb Social History Tobacco [...] on filedocumented in this encounter Care Teams City Designer Relationship Specialty Start Date End Date JuneJos laird DO [address] [facility] [place] [id number] PCP - General 06/04/20 documented as of this encounter
--- OUTSIDE RECORDS SUMMARY | 2024-12-05 15:21 | XMS_ITS | Clinical Summary ---
Author Organization [facility] Address [address] [place] [address] Phone Care Team Providers Care Lead Nitrate Processor Name Role Phone Jos Mirza DO Primary Care Provider [phone] Allergies Active Allergy Reactions Criticality Noted Date [...] 500 mg tablet Take by mouth. Active Medical History Medical History Date Comments Type 2 diabetes mellitus (CM S/HCC V24, CMS/HCC V28) DX:Type 2 diabetes mellitus (HCC) Hypertension DX:Hypertension Chronic ulcer of great toe o f right foot (CMS/HCC V24, CMS/HCC V28) DX:Chronic ulcer of great t oe of right foot ([facility]) Social History Tobacco Use Types Packs/Day Years [...] Diabetes: Blood Sugar Control Test (HGBA1C) 03/30/2024 COVID-19 Vaccine (5 - Pfizer risk season) 2024 04/07/2024, 02/19/2021, 07/21/2020, Additional history exists Influenza Vaccine (#1) 2025 , 04/18/2023, 02/21/2022, Additional history exists Diabetes: Annual GFR (Glomerular Filtration Rate) 03/08/2025 03/08/2024 Hypertension/CHF/CAD Annual BMP Blood Test 03/08/2025 03/08/2024 DTaP,Tdap,and Td Vaccines (3 - Td or Tdap) 09/26/2026 09/26/2016, 09/26/2016 Pneumococcal Vaccine: 50+ Years Completed 12/14/2017, 09/26/2016, 02/27/2015 Zoster Vaccines Completed 08/13/2020, 09/2020, 10/24/2011 RSV Immunization Adult Patients Completed 04/07/2024 HIB Vaccines Aged Out No [...] age to complete this topic Meningococcal B Vaccine Aged Out No l onger eligible based on patient's age to complete this topic RSV Immunization Patients Under 20 months Aged Out No longer eligible based on patient's age to complete this topic Varicella Vaccines Aged Out No longer eligible based on patient's age to complete this topic Insurance [employer] Care Teams Lead Nitrate Processor Relationship Specialty Start Date End Date Jos Mirza DO [address] [facility] [place], [place] PCP - General Internal Medicine 12/14/20
--- OUTSIDE RECORDS SUMMARY | 2024-12-05 15:21 | XMS_ITS | Data Portability ---
Author Organization [facility] Telehealth Patient Home Address [address] [place] [address] Assessment No assessment recorded. Plan of Treatment Reminders Order Date Submit Date Provider Last Modified By Organization Details Last Modified Time Details Appointments MEDICARE ANNUAL WELLNESS 2024 01:30P MANUEL CUTLER Not available Not available Not available Lab CMP, serum or plasma 2024 025 [facility] (Outpatient), [address] [place] [address], [id number], 09/27/2024 10:44:40 hemoglobi n A1c, QN, blood 2024 025 [facility] (Outpatient), [address] [place] [address], [id number], 09/27/2024 10:44:40 CBC w/ auto diff 2024 025 [facility] (Outpatient), [address] [place] [address], [id number], 09/27/2024 10:44:40 Referral None recorded. Procedures None recorded. Surgeries None recorded. Imaging None recorded. Medication Orders omeprazol e 40 mg capsule,d elayed release 2024 025 [id number], [address], [place], [phone], 09/23/2024 14:17:16 metoprolo l succinate ER 25 mg tablet,ex tended release 24 hr 2024 025 [facility] [email or web address] #[id number], [address], [place], [id number], 08/26/2024 13:47:49 Patient TargetsNo targets recorded. Patient Instructions Encounter Date Encounter Id Patient Instructions Last Modified By Organization Details Last Modified Time 08/26/2024 [id number] high blood pressure: care instructions Not available 08/26/2024 13:47:37 learning about high blood pressure Not available 08/26/2024 13:47:37 Reason for Referral None Reported. Results Created Date Observation Date Name Description Value Unit Range Abnormal Flag Note LastModifiedBy Organization Detail LastModifiedTime Result Notes None recorded. Problems Name Problem SNOMED Code Status Onset Date Resolution Date Notes Provider Name and Address Organization Details Recorded Time Gastroeso phageal reflux disease 639950586 Active 2017 Jennifer arthur [facility] 5 14:18:50 Esophagea l web / ring 577337800 Active 2017 Jennifer arthur [facility] 5 14:19:05 Hypertens esperanza disorder 96960055 Active 2017 [place] Jennifer arthur [facility] 5 14:18:50 Osteomyel itis 55688005 Active 2017 Jennifer arthur [facility] 5 14:19:05 Chronic kidney disease 109702207 Active 2017 Jennifer arthur [facility] Medicine 5 14:18:50 Inflamed seborrhei c keratosis 072161528 Active 2017 Jennifer arthur [facility] Medicine 5 14:19:05 Type 2 diabetes mellitus 15851817 Active 2017 MANUEL BILLS [address] [place] [address], [address], [facility] 5 09:37:13 Neuropath y due to diabetes mellitus 286752920 Active 2017 Jennifer arthur [facility] 5 14:18:50 Systolic murmur 51636889 Active 2019 Jenniferchantel Mcintosh null, [facility] 5 14:18:50 Labile hypertens ion due to being in a clinical environme nt 961854961 Active 2019 Not Available [facility] 1 14:23:18 Hiatal hernia 70985755 Active 2020 small Jenniferchantel Mcintosh null, [facility] 5 14:18:50 COVID-19 118593572 Active 2022 Jennifer Mcintosh null, [facility] 5 14:19:05 Ulcer of toe 205077551 Active 2022 Jennifer Mcintosh null, [facility] 5 14:19:05 Aortic stenosis, non-rheum atic 270908477 Active 2022 Jennifer Mcintosh null, [facility] 5 14:18:50 Bilateral lower leg edema 608217701 Active 2022 Jennifer Mcintosh null, [facility] 5 14:19:05 Achalasia 32363410 Active 2022 type 2 Jennifer Mcintosh null, [facility] 5 14:18:50 Aspiratio n pneumonia 288277621 [facility] 2022 [facility] 14:19:05 Ulcer of foot 52049712 Active 2023 Jennifer Mcintosh null, [facility] 5 14:19:05 Cataract due to diabetes mellitus type 2 784955020 Active 2023 Jennifer Mcintosh null, [facility] 5 14:18:50 Osteomyel itis of right foot 741990514333 9100 Active 2023 Jennifer Mcintosh null, [facility] 5 14:19:05 Chronic regurgita tion 26545027 Active 2023 Jennifer Mcintosh null, [facility] 5 14:18:50 Osteomyel itis of left foot 687135464870 9107 Active 2023 Jennifer Mcintosh null, [facility] 5 14:19:05 Abnormal weight loss 360043236 Active 2023 Jennifer Mcintosh null, [facility] 5 14:19:05 Essential hypertens ion 53081169 Active 2023 Jennifer Mcintosh null, [facility] 5 14:18:50 Fall Active 2023 Jennifer Mcintosh null, [facility] 5 14:19:05 Physical deconditi oning 797193887609 02 Active 2023 Jennifer Mcintosh null, [facility] 5 14:18:50 Pain of left knee joint 958565136667 107 Active 2023 Jennifer Mcintosh null, [facility] 5 14:19:05 Acute hyperkale desiree 0455631 Active 2023 Jennifer Mcintosh null, [facility] 5 14:19:05 Right inguinal hernia 454703115 Active 2024 Jennifer Mcintosh null, [facility] 5 14:18:50 Gastro-es ophageal reflux disease with esophagit is 691414032 Active 2024 MANUEL BILLS [address] [place], [address], [facility] 5 15:59:15 Mixed hyperlipi demia 003292903 Active 2024 MANUEL BILLS [address] [place], [address], [facility] Medicine 5 10:42:35 Grief finding 878875932 Active 2024 MANUEL BILLS [address] [place], [address], [facility] 5 10:40:04 Notes:Some problems listed i n Documents: #[id number], #[id number], #[id number], #[id number], #[id number] could not be added to this patient's chart. Please review these documents and add these problems to the patient's chart manually as needed. Problem Notes None recorded. Procedures Surgical History Date Name Laterality Status Provider Name and Address Organization Details Recorded Time 020 Arthrocentesis Major Joint/Bursa completed August [address], [address], [facility] 07/29/2019 11:49:15 020 Removal of foreign body in ear canal completed August [address], [address], [facility] 07/29/2019 11:50:25 Imaging Results None recorded. Procedure Notes None recorded. Medical Equipment None Reported. Allergies Allergen ID Allergen Name Allergen Category Reaction Reaction Severity Criticality Documentation Date Start Date Code Code System Note Provider Name and Address Organization Details Recorded Time 2511 adhesive environme nt,medica tion Not available Not available Not available 04/09/2018 [id number] UNK Simi Riddle [facility] 8 15:08:01 Medications Name Sig Start Date Stop Date Status Note LastModified by Organization Details LastModified Time freestyle eliu 12/01 completed Not Available Not Available Not Available freestyle mis lancets 12/01 completed Not Available Not Available Not Available freestyle lancets misc 08/26 completed Not Available Not Available Not Available [...] FOR PAIN OR MILD TO MODERATE PAIN 08/26 completed Not Available Not Available Not Available prednison e 10 mg tablet 50 mg [...] 50 mg tablet,ex tended release 24 hr TAKE 1 TABLET BY MOUTH DAILY 08/26 completed Not Available Not Available Not Available FreeStyle Test strips USE TO TEST ONCE DAILY 06/10 completed Not Available Not Available Not Available FreeStyle Lancets 28 gauge USE TO TEST ONCE DAILY 08/26 completed Not Available Not Available Not Available famotidin e 40 mg tablet TAKE 1 TABLET BY MOUTH TWICE DAILY 07/25 completed Not Available Not Available Not Available hydralazi ne 25 mg tablet TAKE 1 TABLET BY MOUTH THREE TIMES DAILY active Not Available Not Available No t Available acetamino phen 300 mg-codein e 30 mg tablet TAKE 1 TABLET BY MOUTH EVERY 6 HOURS NEEDED FOR PAIN. WILL CAUSE DOWSINES S 11/30 completed Not Available Not Available Not Available clopidogr el 75 mg tablet TAKE 1 TABLET BY MOUTH DAILY active Not Available Not Available No t Available amlodipin e 5 mg tablet 09/08 completed Not Available Not Available Not Available omeprazol e 40 mg capsule,d elayed release TAKE 1 CAPSULE BY MOUTH EVERY DAY DIRECTED active Not Available Not Available No t Available aspirin 81 mg tablet,de layed release [...] % eye drops INSTILL 1 DROP IN RIGHT EYE THREE TIMES DAILY. START 2 DAYS BEFORE SURGERY 11/30 completed Not Available Not Available Not Available cefadroxi l 500 mg capsule 09/08 completed Not Available Not Available Not Available amoxicill in 875 mg tablet TAKE 1 TABLET BY MOUTH TWICE DAILY UNTIL ALL TAKEN 11/30 completed Not Available Not Available Not Available [...] Available Not Available Not Available pantopraz ole 40 mg tablet,de layed release TAKE 1 TABLET BY MOUTH EVERY DAY active Not Available Not Available No t Available metformin 1,000 mg tablet 09/08 completed [...] ointment APPLY TOPICALL Y TO WOUND DAILY 11/30 completed Not Available Not Available Not Available furosemid e 20 mg tablet TAKE 1 TABLET BY MOUTH EVERY DAY 04/16 completed Not Available Not Available Not Available metoprolo l succinate ER 25 mg tablet,ex tended release 24 hr TAKE 1 TABLET BY MOUTH DAILY active Not Available Not Available No t Available levofloxa mariah 500 mg tablet 10/11 completed [...] completed Not Available Not Available Not Available moxifloxa mariah 0.5 % eye drops INSTILL 1 DROP IN RIGHT EYE FOUR TIMES DAILY. START THE DAY BEFORE SURGERY 11/30 completed Not Available Not Available Not Available [...] Available FreeStyle Lite Meter kit USE DIRECTED 08/26 completed Not Available Not Available Not Available Humalog KwikPen (U-100) Insulin 100 unit/mL subcutane ous sliding scale: IF GLUCOSE IS 130-150 use 2 nyeau342 -200 use 4 vuwis212 -250 use 6 clyuy482 -300 use 8 [id number] -350 use 10 units>35 1 use 12 untis 01/11 completed Not Available Not Available Not [...] USE DIRECTED . CHANGE EVERY 2 WEEKS 2024 active Not Available Not Available Not Avai lable FreeStyle Ana 2 Calvin USE DIRECTED TO TEST BLOOD GLUCOSE active Not Available Not Available No t Available Fluad Quad (65yr up)(PF) 60 mcg (15 mcg x 4)/0.5mL IM syringe ADM 0.5ML IM UTD 01/31 completed Not Available Not Available Not Available Vitals Date Recorded Body height Body mass index (BMI) Body weight Heart rate Oxygen saturation Oxygen saturation in Arterial blood by Pulse oximetry Systolic And Diastolic Provider Name and Address Organization Details Last Updated DateTime 5 190.5 cm 23.7 kg/m2 72051.5 5 g 64 /min 97 % 97 % 152/62 mm[Hg] Jos Mirza, DO [address] [place], [address] [place] [address] Internal Medicine 5 13:32:48 Date Recorded Body height Body mass index (BMI) Body weight Heart rate Oxygen saturation Oxygen saturation in Arterial blood by Pulse oximetry Systolic And Diastolic Provider Name and Address Organization Details Last Updated DateTime 5 190.5 cm 24 kg/m2 51420.7 4 g 65 /min 99 % 99 % 142/90 mm[Hg] Jennifer [facility] 5 11:05:36 Date Recorded Body height Heart rate Oxygen saturation Oxygen saturation in Arterial blood by Pulse oximetry Systolic And Diastolic Provider Name and Address Organization Details Last Updated DateTime 5 190.5 cm 60 /min 99 % 99 % 154/84 mm[Hg] [facility] 5 10:25:45 Date Recorded Body height Heart rate Oxygen saturation Oxygen saturation in Arterial blood by Pulse oximetry Systolic And Diastolic Provider Name and Address Organization Details Last Updated DateTime 5 190.5 cm 60 /min 98 % 98 % 184/82 mm[Hg] [facility] 5 10:15:16 Date Recorded Body height Body mass index (BMI) Body weight Heart rate Oxygen saturation Oxygen saturation in Arterial blood by Pulse oximetry Systolic And Diastolic Provider Name and Address Organization Details Last Updated DateTime 5 190.5 cm 24.1 kg/m2 65351.3 3 g 56 /min 97 % 97 % 156/88 mm[Hg] [facility] 5 10:12:39 Social History Question Answer Notes LastModified by Organizat ion Details LastModified Time Tobacco Smoking Status Never Smoker Not Available [facility] 03/27/2020 03:36:24 What Was The Date Of Your Most Recent Tobacco Screening? 11/30/2024 Information not available 11/30/2024 Sex: Unknown Functional Status Question Answer Note LastModified by Organization D etails LastModified Time Do you or have you ever used any other forms of tobacco or nicotine? No Information not available 12/01/2022 Mental Status None recorded. Family History Nothing Reported. Medical History No medical history recorded. Immunizations Vaccine Type Date Status Note Provider Nam e and Address Organization Details Recorded Time zoster live 10/24/19 12 [facility]2018 16:12:49 Influenza, split virus, quadrivalent, preservative 01/16/20 21 completed Jos Mirza DO [address] [place] [address], [address], [facility] 04/16/2021 09:59:56 COVID-19, mRNA, LNP-S, PF, 30 mcg/0.3 mL dose 02/21/20 21 completed [facility] 05/13/2021 10:01:17 influenza, unspecified formulation 01/31/20 22 completed Jos Mirza DO [address] [place] [address], [phone] 07/25/2022 13:39:10 Influenza, split virus, quadrivalent, preservative 01/19/20 19 [facility] 01/19/2019 08:07:19 pneumococcal polysaccharide PPV23 12/15/19 18 completed Not Available [facility] 06/25/2019 02:14:52 Influenza, split virus, quadrivalent, preservative 02/07/20 20 completed Simi arthur [facility] 05/14/2020 13:36:29 zoster recombinant 05/29/19 21 [facility] 05/30/2020 13:55:39 zoster, unspecified formulation 08/14/19 21 completed [facility] 08/14/2020 14:30:47 COVID-19, mRNA, LNP-S, PF, 30 mcg/0.3 mL dose 07/20/19 21 completed [facility] 08/15/2020 13:37:20 COVID-19, mRNA, LNP-S, PF, 30 mcg/0.3 mL dose 02/11/20 21 joi arthur, [facility] 08/15/2020 13:37:30 Td(adult) unspecified formulation 09/27/19 17 completed Nai Kelsey arthur [facility] 01/27/2018 08:24:33 Influenza, split virus, quadrivalent, preservative 01/30/20 18 completed Jos Mirza, [address], [address], [facility] Internal [facility] 01/30/2018 14:25:04 Past Encounters Encounter ID Performer Location Encounter Start Date Encounter Closed Date Diagnosis/Indication Diagnosis SNOMED-CT Code Diagnosis ICD10 Code Diagnosis Note [id number] Jos Mirza [address],[place] [address] 09/08/2017 10:25:07 09/08/2017 12:21:26 Adult health examination 257239300 Z00.01 cont to follow up with wound care drs and his bp dr Active or passive immunization 581857571 Z23 [id number] Jos Mirza [facility] Internal [address],[place] [address] 12/09/2017 15:14:15 12/09/2017 16:34:28 Cellulitis of lower limb 826628982 L03.119 due to concern for recurrent cellulitis and acute skin changes recommend starting abx Diabetic foot ulcer 3710 41737 E11.40 Type 2 chip betes mellitus 68169205 E11.65 Hypertensive disorder 38 257935 I10 123/63 this morning at home white coat [id number] Jos Mirza DO [facility] Medicine [address] [place] [address],[place] [address] 12/11/2017 11:41:34 12/11/2017 12:46:01 Type 2 diabetes mellitus 77325797 E11.9 a1c is 6.5 and pt is doin g well Hypertensive disorder 38 706224 I10 stable Cellulitis of foot 89163 6007 L03.119 increase cephalexin to qid and follow closely will receck next week [id number] Jos Mirza [facility] [address] [place] [address],[place] [facility] [address] 12/15/2017 13:23:34 12/15/2017 16:09:58 Cellulitis of toe 64393922 L03.032 clearing continue with abx for next 5 days and finish all [id number] Jos Mirza [facility] Medicine [address] [facility] [address],[place] [address] 01/18/2018 10:28:06 01/18/2018 13:31:11 Cellulitis of toe 19919303 L03.032 Neuropathy due to diabetes mellitus 578819996 E11.[address] Berna dubose Hypertensive disorder 38 493582 I10 follow Chronic ki dney disease 475522786 N18.9 stable, creat 2, no micro albumin [id number] Jos Mirza [facility] Medicine [address] [facility] [address],[place] [address] 01/27/2018 11:10:50 01/27/2018 16:23:20 Fatigue 11213325 R53.83 Infection of toe 0264559 06 L08.9 f/u wound care Chronic ki dney disease 415250958 N18.9 creatinine up to 2.31, to recheck next Thursday Skin react ion irritant 277439918 R23.8 avoid cortisone [id number] Jos Mirza [facility] Medicine [address] [facility] [address],[place] [address] 02/05/2018 11:37:03 02/05/2018 12:16:23 Neuropathy due to diabetes mellitus 921863515 E11.40 Hypertensive disorder 38 850884 I10 follow Chronic ki dney disease 416011874 N18.9 creat improved to 1.8 [id number] Jos Mirza [facility] Medicine [address] [facility] [address],[place] [address] 03/31/2018 15:17:57 03/31/2018 16:20:54 Painful rectal bleeding 274254358 K62.5 [id number] Jos Mirza [facility] Medicine [address] [facility] [address],[place] [address] 04/09/2018 15:02:16 04/09/2018 16:26:21 Adult health examination 878211582 Z00.01 cont to follow up with wound care drs and his bp dr Screening for cardiovascular system disease 748041242 Z13.6 no symptoms noted needs cholestero l ordered Screening for malignant neoplasm of colon 248840668 Z12.11 had 2 yrs ago Hypertensive disorder 38 129360 I10 stable overall at home is in 110's over 60's Type 2 chip betes mellitus 58492067 E11.9 a1c is 6.1 and pt is doing well Osteomyelitis 08202478 M 86.9 ongoing treatment of left foot and is having leaking daily so hole is still present has a silver alginate dressing applied daily this has been ongoing for 1 year will prob need more hyperbaric treatment [id number] Jos Mirza DO [facility] Internal Medicine [address] [facility],[place] [address] 07/14/2018 09:31:53 07/14/2018 10:06:22 Osteomyelitis 94491891 M86.9 ongoing treatment of left foot and is having leaking daily so hole is still present has a silver alginate dressing applied daily but this was stopped as it was too occlusive this has been ongoing for 1 year will prob need more hyperbaric treatment Cellulitis of lower leg 109360738 L03.119 is resolving on levaquin will finish culture not taken has appearance of completely resolved cellulitis after only 3 days of levaquin Type 2 chip betes mellitus 70567538 E11.9 a1c is 6.3 and pt is doing well Chronic ki dney disease 523562136 N18.9 is actually stable with his creat 1.88 Hypertensive disorder 38 460283 I10 stable overall now on losartan 100 mg at home is in 110's over 60's Jos Mirza DO [facility] [address] [facility],[place] [address] 10/11/2018 14:17:14 10/11/2018 14:57:47 Type 2 diabetes mellitus 72271167 E11.9 a1c is 6.5 and pt is doing well Hypertensive disorder 38 340030 I10 stable overall now on losartan 100 mg at home is in 110's over 60's Neuropathy due to diabetes mellitus 062762899 E11.40 cont with keeping his sugar controlled Chronic ki dney disease 494773560 N18.9 creat has increased to 2.8 and is worrisome and will need to continue follow with Dr Hernández Edema of l ower extremity 164090001 R60.0 possibilit y of nifedipine being the cause [id number] Jos Mirza DO [facility] Internal Medicine [address] [facility] [place] [address] 02/08/2019 13:28:02 02/08/2019 14:30:29 Hypertensive disorder 65307979 I10 stable overall now on losartan 100 mg at home is in 110's over 60's Type 2 chip betes mellitus 43036374 E11.9 a1c is 6.4 was 6.5 and pt is doing well 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 please send prior notes from [place] ([facility] [place]) [id number] Jos Mirza [facility] Internal Medicine [address] [facility] [place] [address] 06/17/2019 15:04:08 06/17/2019 16:09:39 Chronic kidney disease 316384020 N18.9 Awaiting documentat ion from Neph Was referred to Heme/Onc likely for anemia GFR stable at 28 Neuropathy due to diabetes mellitus 274180294 E11.40 cont with keeping his sugar controlled Hypertensive disorder 38 781990 I10 BP well controlled Started doxazosin 2 mg by nephrology Type 2 chip betes mellitus 38143968 E11.9 A1C is 6.6 up from 6.4 stable [id number] Jos Mirza DO [facility] Internal Medicine [address] [facility],[place] [address] 07/29/2019 10:52:25 07/29/2019 12:10:52 Bursitis of olecranon of left elbow 8746156375 44236 M70.22 successful olecranon bursa drainage f/u if fluid returns Foreign janeth dy in left ear 2261875171 6239275 T16.2XXA ear tube removed from canal without complicati on Foreign janeth dy in right ear 9810922250 3535511 T16.1XXA ear tube removed from canal without complicati on Hypertensive disorder 38 403945 I10 stable Systolic murmur 95586237 R01.1 known [id number] Jos Mirza [facility] Medicine [address] [facility],[place] [address] 10/18/2019 15:12:37 10/18/2019 15:51:40 Type 2 diabetes mellitus 23608086 E11.9 A1C is 6.6 up from 6.4 stable Osteomyelitis 21324850 M 86.9 ongoing treatment of left foot and is having leaking daily so hole is still present has a silver alginate dressing applied daily but this was stopped as it was too occlusive this has been ongoing for 1 year had some more work done on his 3rd left toe has been starte don his abx Hypertensive disorder 38 520439 I10 BP well controlled Started doxazosin 2 mg by nephrology [id number] [facility] [address] [facility],[place] [address] 11/16/2019 14:45:53 11/16/2019 15:29:21 Cellulitis 364547829 L03.90 resolving well healing will finish rest of 9 days of Keflex Chronic ki dney disease 024322485 N18.9 stable Neuropathy due to diabetes mellitus 172006813 E11.40 stable Hypertensive disorder 38 410308 I10 BP elevated today, mostly likely due to infection, is trending down will continue to monitor Osteomyelitis 67428319 M 86.9 discussing with specialist Type 2 chip betes mellitus 15642712 E11.21 stable [id number] [facility] [address] [facility],[place] [address] 02/01/2020 13:26:40 02/01/2020 14:04:23 Type 2 diabetes mellitus 45626583 E11.9 A1C is 6.6 again as it was last time and before up from 6.4 stable Hypertensive disorder 38 292803 I10 BP well controlled Started doxazosin 2 mg by nephrology Neuropathy due to diabetes mellitus 358661400 E11.40 cont with keeping his sugar controlled 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 4069089 K22.2 doing well with this he is asymptomat ic Gastroesop hageal reflux disease 905977162 K21.9 quiet and doing well Chronic ki dney disease 183125927 N18.9 Awaiting documentat ion from Neph Was referred to Heme/Onc likely for anemia GFR stable at 28 Osteomyelitis 90365136 M 86.9 ongoing treatment of left foot and is having leaking daily so hole is still present has a silver alginate dressing applied daily but this was stopped as it was too occlusive this has been ongoing for 1 year had some more work done on his 3rd left toe has been starte don his abx Iron deficiency 79124897 E61.1 noted by his other specialist told to add iron foodstuff 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 765049240 I15.8 home bps are excellent [id number] Jos Mirza [facility] Internal Medicine [address] [facility],[place] [address] 04/16/2020 14:36:49 04/16/2020 15:22:24 Hypertensive disorder 75132731 I10 BP elevated today, mostly likely due to infection, is trending down will continue to monitor Type 2 chip betes mellitus 90767997 E11.21 stable Pruritic disorder 834295 002 L29.9 trial of steriod and antihistam ine Diabetic foot 937653816 E11.59 will try antifungal Ingrowing nail of toe of right foot 7420432159 6573568 L60.0 doing well [id number] Jos Mirza [facility] Internal Medicine [address] [facility] [place] [address] 04/24/2020 13:52:46 04/24/2020 14:36:15 Ingrowing nail of toe of right foot [id number] 3589397 L60.0 fu of his ingrown toe doing well on ketoconazo le Edema of l ower extremity 091787470 R60.0 will start on lasix and check BMP for CKD will also check TSH to see if related to swelling and itching will fu with possible vascular referral Chronic ki dney disease 011537042 N18.9 stable Cellulitis 082769576 L03 .90 r/o osteomyeli tis [id number] Jos Mirza [facility] Internal Medicine [address] [facility], [place] [address] 05/14/2020 13:27:57 05/14/2020 14:27:06 Hypertensive disorder 00624110 I10 BP well controlled Started doxazosin 2 mg by nephrology Type 2 chip betes mellitus 86425277 E11.9 A1C is 6.7 and was 6.6 again as it was last time and before up from 6.4 stable Chronic ki dney disease 066765959 N18.9 Awaiting documentat ion from Neph Was referred to Heme/Onc likely for anemia of chronic ds GFR stable at 28 still has creat elevated followed by dr hernández [facility] 14922451 M 86.9 ongoing treatment of left foot and is having noted improvemen t and near resolution Neuropathy due to diabetes mellitus 540287722 E11.40 cont with keeping his sugar controlled he does have signif loss of sensation bilat Edema of lower leg 23388 7004 R60.0 relates that he is much improved and is going to use the furosemide on a prn [id number] Jos Mirza [facility] Internal Medicine [address] [facility],[place] [address] 08/15/2020 13:32:58 08/15/2020 14:28:58 Chronic kidney disease 263956606 N18.9 Awaiting documentat ion from Neph which has still not come dr hernández at Was referred to Heme/Onc likely for anemia of chronic ds GFR stable at 28 still has creat elevated at 2.1 but is slowly getting better followed by dr hernández Type 2 chip betes mellitus 03833199 E11.9 A1C is 6.5 was 6.7 and was 6.6 again as it was last time and before up from 6.4 stable Hypertensive disorder 38 107960 I10 BP well controlled HE WILL RESCHEDULE APPT IN 1 MONTH AND BRING IN HOME READINGS TO GET SCANNED has been elevated at dr offices bp 133 / 63 he has signif white coat hypertensi on nifedipine by nephrology [id number] Jos Mirza [facility] Internal Medicine [address] [facility] [address],[place] [address] 09/21/2020 14:24:25 09/21/2020 15:24:14 Hypertensive disorder 79776022 I10 BP well controlled HE WILL RESCHEDULE APPT IN 1 MONTH AND BRING IN HOME READINGS TO GET SCANNED has been elevated at dr offices bp 133 / 63 he has signif white coat hypertensi on nifedipine by nephrology Type 2 chip betes mellitus 56031753 E11.9 A1C is 6.5 was 6.7 and was 6.6 again as it was last time and before up from 6.4 stable Chronic ki dney disease 707185309 N18.9 Awaiting documentat ion from Neph which has still not come dr hernández at Was referred to Heme/Onc likely for anemia of chronic ds GFR stable at 28 still has creat elevated at 1.99 but is slowly getting better followed by dr hernández 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 473046204 I15.8 home bps are excellent [id number] Jos Mirza DO [facility] Internal Medicine [address] [facility],[place] [address] 12/17/2020 14:52:24 12/17/2020 15:31:42 Hypertensive disorder 38288933 I10 BP elevated today, mostly likely due to infection, is trending down will continue to monitor elevated in doctor's offices usually fine at home Osteomyelitis 14663110 M 86.9 discussing with specialist has fu in 4 weeks Neuropathy due to diabetes mellitus 991940010 E11.40 stable Type 2 chip betes mellitus 89167301 E11.21 stable [id number] Jos Mirza DO [facility] Internal Medicine [address] [facility],[address] [place] [address] 01/16/2021 13:51:42 01/16/2021 15:12:45 Type 2 diabetes mellitus 05370654 E11.9 A1C is still 6.5 and prior 6.5 was 6.7 and was 6.6 again as it was last time and before up from 6.4 stable Hypertensive disorder 38 190481 I10 BP well controlled HE WILL RESCHEDULE APPT IN 1 MONTH AND BRING IN HOME READINGS TO GET SCANNED has been elevated at dr dino bp 133 / 63 he has signif white coat hypertensi on nifedipine by nephrology Chronic ki dney disease 497563586 N18.9 Awaiting documentat ion from Neph which has still not come dr hernández at Was referred to Heme/Onc likely for anemia of chronic ds GFR stable at 28 still has creat elevated at 1.9 but is slowly getting better followed by dr hernández Neuropathy due to diabetes mellitus 021543204 E11.40 cont with keeping his sugar controlled he does have signif loss of sensation bilat Osteomyelitis 22261049 M 86.9 ongoing treatment of left foot and is having noted improvemen t and near resolution [id number] Jos William Hermes [facility] Internal Medicine [address] [facility],[place] [address] 04/16/2021 09:51:13 04/16/2021 15:08:26 Active or passive immunization 194902484 Z23 utd Adult heal th examination 861078665 Z00.00 cont to follow up with wound care drs and his bp sumito to have follow up with kicking machine operator for her hammertoe [id number] Jos William Hermes [facility] Internal Medicine [address] [facility],[place] [address] 05/13/2021 09:53:26 05/13/2021 13:58:59 Hypertensive disorder 57758211 I10 stable at home, no medical interventi on needed 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 032573103 I15.8 stable, has high BP in clinical settings, good at home Pre-surger y evaluation 794934034 Z01.818 The patient was seen in the office today for pre-op evaluation . All medical conditions on patient's problem list were addressed and are currently stable, no interventi on needed at this time. Based on history and physical performed, the patient is cleared for surgery. Chronic ki dney disease 512982413 N18.9 stablerece nt visit with nephrologi st cleared patient [id number] Jos William Hermes [facility] Internal Medicine [address] [facility],[place] [address] 07/22/2021 13:43:25 07/23/2021 15:43:08 Clostridioides difficile infection 340234111 A04.72 resolved Hypertensive disorder 38 272103 I10 stable at home, no medical interventi on needed [id number] Jos William Hermes [facility] Internal Medicine [address] [facility],[place] [address] 08/21/2021 09:25:46 08/21/2021 13:55:05 Hypertensive disorder 36102181 I10 BP well controlled bp has been goodbp is now running 110/60s nifedipine by nephrology Neuropathy due to diabetes mellitus 951880203 E11.40 cont with keeping his sugar controlled he does have signif loss of sensation bilat Osteomyelitis 20775670 M 86.9 now resolved doing wellsome discomfort around the callous areahas been scraping the callous himself Type 2 chip betes mellitus 43413589 E11.9 A1C is still 6.6 and wasw 6.5 and prior 6.5 was 6.7 and was 6.6 again as it was last time and before up from 6.4 stable [id number] DO Kamran Herring Internal Medicine [address] [facility],[place] [address] 06/17/2022 11:49:05 06/18/2022 09:29:55 COVID-19 038448117 U07.1 will adjust steriod dennis to prednisone start cough suppressan tthe patient will also increase food intake [id number] DO Kamran Herring Internal Medicine [address] [facility],[place] [address] 07/25/2022 13:22:11 07/25/2022 16:19:09 Active or passive immunization 364102088 Z23 utd Adult heal th examination 249020551 Z00.00 cont to follow up with wound care drs and his bp jesse to have follow up with kicking machine operator for her hammertoe Neuropathy due to diabetes mellitus 876712695 E11.40 cont with keeping his sugar controlled he does have signif loss of sensation bilat Osteomyelitis 62257161 M 86.9 now resolved doing wellsome discomfort around the callous areahas been scraping the callous himself Type 2 chip betes mellitus 33183326 E11.9 A1C is now up to 7.5 but he just lost 20lbs so he will be lower next 6.6 and was 6.5 and prior 6.5 was 6.7 and was 6.6 again as it was last time and before up from 6.4 stable Advance care planning 71 4231773 Z71.89 utd Hypertensive disorder 38 971070 I10 BP well controlled bp has been goodbp is now running 110/60s nifedipine by nephrology Gastroesop hageal reflux disease 689960514 K21.9 quiet and doing well Ulcer of toe 752432667 L 97.509 will need insert and sneaker [id number] DO Kamran Herring Internal Medicine [address] [facility] [address],[place] [facility] [place] [address] 12/01/2022 10:22:12 12/01/2022 11:29:49 Type 2 diabetes mellitus 62931825 E11.9 A1C is now at 6.7 but he lost 20lbs 6.6 and was 6.5 and prior 6.5 was 6.7 and was 6.6 again as it was last time and before up from 6.4 stable Hypertensive disorder 38 017223 I10 BP well controlled bp has been goodbp is now running 110/60s nifedipine by nephrology Aortic jaime nosis, non-rheumatic 896651037 I35.0 has an upcoming echo Bilateral lower leg edema 945403867 R60.0 this is prob from the nifedipine [id number] Jos Mirza [facility] Internal Medicine [address] [facility],[place] [address] [facility] [place] [place] [address] 03/24/2023 09:38:11 03/24/2023 13:57:28 Essential hypertension 12152334 I10 medication adjusted in chartneeds new scripts for the metoprolol and nifedipine Achalasia 73198178 K22.0 having more issues with itno effect with his recent dilation Type 2 chip betes mellitus 89825201 E11.9 stableagre ed to endo consult for diabetic education Aspiration pneumonia 422 240825 J69.0 will set up with lab work [id number] Jos Mirza [facility] Internal Medicine [address] [facility] [address],[place] [address] 08/14/2023 14:01:17 08/14/2023 15:09:45 Essential hypertension 93980676 I10 has been stable no issues Hypertensive disorder 38 428622 I10 BP well controlled bp has been goodbp is now running 110/60s nifedipine by nephrology Neuropathy due to diabetes mellitus 451054567 E11.40 cont with keeping his sugar controlled he does have signif loss of sensation bilat a1c is 6.1 Type 2 chip betes mellitus 52076073 E11.9 A1C is now at 6.1 was 6.7 (but he lost 30lbs ) 6.6 and was 6.5 and prior 6.5 was 6.7 and was 6.6 again as it was last time and before up from 6.4 stable Aspiration pneumonia 422 833329 J69.0 quiet and reolved Chronic ki dney disease 471842406 N18.9 Awaiting documentat ion from Neph which has still not come dr hernández at Was referred to Heme/Onc likely for anemia of chronic ds GFR stable at 28 still has creat elevated at 1.9 but is slowly getting better followed by dr hernández Ulcer of foot 25708114 L 97.509 followed by wound nurse and podiatryco nt to use doxycyclin e Cataract d ue to diabetes mellitus type 2 776278725 E11.36 we will give him a pre op today [id number] Jos Mirza [facility] Internal Medicine [address] [facility] [address],[place] [address] 09/04/2023 15:01:17 09/04/2023 16:06:40 Amputated big toe 214216429 Z89.411 stable Osteomyeli tis of right foot 1823598720 634634 M86.011 stable [id number] Jos Mirza [facility] Internal Medicine [address] [facility] [address],[place] [address] 12/11/2023 13:35:43 12/11/2023 15:05:49 Depression screening 253520122 Z13.31 SCREENING NEGATIVE Hypertensive disorder 38 789358 I10 BP well controlled bp has been goodbp is now running 110/60s nifedipine by nephrology Type 2 chip betes mellitus 18411646 E11.9 A1C is now at 6.1 was 6.7 (but he lost 30lbs ) 6.6 and was 6.5 and prior 6.5 was 6.7 and was 6.6 again as it was last time and before up from 6.4 stable Neuropathy due to diabetes mellitus 417205822 E11.40 cont with keeping his sugar controlled he does have signif loss of sensation bilat a1c is 6.1 Aortic jaime nosis, non-rheumatic 220308760 I35.0 has an upcoming echo [id number] Jos Mirza [facility] Internal Medicine [address] [facility] [address],[place] [address] 01/12/2024 13:52:17 01/12/2024 14:49:17 Adult health examination 203227507 Z00.00 cont to follow up with wound care drs and his bp heather to have follow up with kicking machine operator for her theoe Screening for cardiovascular system disease 463804084 Z13.6 no symptoms noted needs cholestero l ordered Screening for malignant neoplasm of colon 791055455 Z12.11 had 2 yrs ago Depression screening 171 777379 Z13.31 SCREENING NEGATIVE Chronic regurgitation 84 038149 R11.10 has had egd x 3 and seen multiple specialist s Type 2 chip betes mellitus 05611916 E11.9 A1C is now at 6.0, 6.1 was 6.7 (but he lost 30lbs ) 6.6 and was 6.5 and prior 6.5 was 6.7 and was 6.6 again as it was last time and before up from 6.4 stable [id number] Jos Mirza [facility] Internal Medicine [address] [place] [address] 03/08/2024 10:53:58 03/08/2024 11:55:56 Gastroesophageal reflux disease 215563104 K21.00 suggested prilosec for reflux Abnormal weight loss 267 373915 R63.4 agreed to lab work [id number] Jos Mirza [facility] Internal Medicine [address] [facility],[place] [address] 04/26/2024 09:25:17 04/26/2024 14:54:21 Fall R29.6 will set up with PT Physical deconditioning 7036863003 9102 R68.89 will set up with PT Pain of le ft knee joint 9012152161 64807 M25.562 will set up with XR Acute hyperkalemia 58343 00 E87.5 will set up with with lab work [id number] Jos Mirza [facility] Internal Medicine [address] [facility],[place] [address] 06/10/2024 13:52:26 06/10/2024 14:45:37 Right inguinal hernia 150434113 K40.90 will set up with US abdomen/gr oin to check on size and appearance [id number] Jos Mirza [facility] Internal Medicine [address] [facility],[place] [address] 08/26/2024 13:26:33 08/26/2024 13:57:57 Pre-surgery evaluation 712107793 Z01.818 Per the 2017 ACC cardiac risk stratifica tion (revised) this patient is deemed a low risk for the proposed cataract surgery and is cleared. The patient understand s to take his usual medication on the morning of his procedure . Depression screening 171 364863 Z13.31 SCREENING NEGATIVE Essential hypertension 48773144 I10 has been stable no issues [id number] Jos Mirza [facility] Internal Medicine [address] [facility],[place] [address] 09/23/2024 10:44:53 09/23/2024 14:33:10 Depression screening 510114499 Z13.31 grief over Gastro-eso phageal reflux disease with esophagitis 327244287 K21.00 suggested prilosec for refluxfu next week [id number] Jos Mirza [facility] Internal Medicine [address] [facility],[place] [address] 09/27/2024 10:01:13 09/27/2024 10:46:02 Gastro-esophageal reflux disease with esophagitis 569413555 K21.00 improving Chronic ki dney disease 001623955 N18.9 stablerece nt visit with nephrologi st cleared patient Essential hypertension 22413727 I10 stable Type 2 chip betes mellitus 84565718 E11.9 stableagre ed to endo consult for diabetic education Mixed hyperlipidemia 267 639841 E78.2 [id number] Jos Mirza [facility] Internal Medicine [address] [facility],[place] [address] 10/31/2024 10:03:50 10/31/2024 14:35:40 Depression screening 419827906 Z13.31 grief over still, is improving Gastro-eso phageal reflux disease with esophagitis 488506747 K21.01 improving Grief finding 702465934 F43.20 is improvingh as a good support money [id number] Jos Mirza [facility] Internal Medicine [address] [facility],[place] [address] 11/30/2024 09:50:04 11/30/2024 14:10:35 Essential hypertension 06191240 I10 stable 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 4199761 K22.2 stable Gastroesop hageal reflux disease 602177342 K21.00 continue with prilosec Patient counseled 185216 003 Z71.89 improving everyday still is sad but it doesn't interfere with his day to day function Health Concerns Section Related Observation LastModified by Organization Detai ls LastModified Time None Recorded Concern Status LastModified by Organization Details LastModified Time None Recorded Advance Directives Directive None Recorded Payers Insurance Date Sequence Insurance Name Policy Number Policy Lambert Covered Member ID Lambert Member ID Guarantor Name 11/27/2024 1 [facility] MEDICARE ADVANTAGE PLAN (MEDICARE REPLACEMENT HMO) [id number] 1 Karthikeyan Lazo Sr. [id number] Karthikeyan Lazo Notes Date Note Type Note Provider Name and Address Organization Details Recorded Time 5 text/html Pre-OpReported bypatient.Risk Factorsno cognitive impairment; no functional impairment; no malnutrition; no frailty; able to climb a flight of stairs (exercise capacity>4 METS); no obstructive sleep apnea; non-smoker; no alcohol misuse; no illicit drug use; no chronic cardiopulmonary condition; not obese Anesthesia hx:no hx of anesthesia complications; no allergy to anesthetic agents; no family history of anesthesia complications Functional Ability:able to walk up stairs; able to perform heavy work around the house; no difficulty walking up hills; able to walk 4 mph here for pre op eval for cataract surgery OD Jos Mirza DO [address] [place], [address], [facility] Internal Medicine 08/26/2024 13:54:56 5 text/html c/o GERD symptoms GERD: the patient is having recurrent issues with regurgitation started after his recent cataract surgery (R eye), and dental extraction of the lower left tooth was started on amox recentlycould have triggered the reaction of the increased GERD recommended starting omeprazole 40 mgthe patient will fu next week MAN[facility] BILLS [address] [place], [address], [facility] Internal Medicine 09/23/2024 11:29:27 5 text/html 2 week f/u hypoglycemia: the patient reports he hasn't been eating as much due to him adjusting to losing his (depressive symptoms) is getting back to normal, his family is helpingthe patient doesn't eat a lot before bed, recommended eating or drinking something before bed GERD: seems to be doing bettercontinue the full 30 days of the 40 mg the patient finished his abx from the dentistthe patient thinks it may have caused him constipation still sad today, but working through it, has a good community and social group around him he can talk to and he talks the patient is doing well healthwise overall still working on him eating more, and less sodium Jos Mirza DO [address] [place], [address], [facility] 11/01/2024 22:00:08 5 text/html f/u appt GERD the patient reports that he didn't notice any affect with the omeprazoleswitched out to pantoprazolethe patient and I discussed about his diet, avoid heavy fat foods and citrusthe patient reports that he will work on T2DM: Patient presents today for follow-up for Type 2 Diabetes Recent lab showed an A1c of 6.1% The patient has been compliant with medicationsDenies any side effects or issues with the medications, no sig diabetic complicationsThe patient has current concerns about related to their diabetes diagnosis continued stability in his sugarwhich requires cont use of medication and dietary changesThe patient has been compliant with lifestyle changes including dietary changes, exercise and healthy habits Treatment plan going forward is cont medication had consult with pod for orthotic, need note for what they need from [facility] contact the group since we didn't get a message pt said they were sendingprobably a fax issue recheck 143/80 R arm sitting after 10 minutes MANUEL [facility]ILLS [address] [place], [address], [facility] 10/31/2024 10:41:55 5 text/html f/u appt GERD 10/31/24 appt for GERD: the patient reports that he didn't notice any affect with the omeprazoleswitched out to pantoprazolethe patient and I discussed about his diet, avoid heavy fat foods and citrusthe patient reports that he will work on T2DM: Patient presents today for follow-up for Type 2 Diabetes Recent lab showed an A1c of 6.1% The patient has been compliant with medicationsDenies any side effects or issues with the medications, no sig diabetic complicationsThe patient has current concerns about related to their diabetes diagnosis continued stability in his sugarwhich requires cont use of medication and dietary changesThe patient has been compliant with lifestyle changes including dietary changes, exercise and healthy habits Treatment plan going forward is cont medication had consult with pod for orthotic, need note for what they need from [facility] contact the group since we didn't get a message pt said they were sendingprobably a fax issue recheck 143/80 R arm sitting after 10 minutes 11/30/24: patient is here for 1 mos f/u to check on his GERD symptomsis still working on diet, since his he has been eating more easy to make meals which a high is salt, sugar and fat still no f/u fax from podiatry the patient reports that he had two steaks last nightthe patient reports that his DIL had him trying apple cider vinegar which seems to helpis still using the omeprazole, still want him to work on cleaning up his diet the patient had prisms done for his glasses which is causing him to see more double vision and having blurriness (had hx of surgery)pt sees Dr. Patel and Dr. Morfin no recent falls according to patient the patient has nurse coming from [facility] night the pt is keeping himself busyhas a good support system and community MANUEL BILLS [address] [place] [address], [place], [address], [place] [facility] 11/30/2024 10:41:36
== END 2024-12-05 15:05 | disposition home or self-care (01) ==
PROVIDERS: PCP Internal Medicine; Visit Provider Internal Medicine Cardiovascular Disease
DX: I35.0 Nonrheumatic aortic (valve) stenosis (principal); I10 Essential (primary) hypertension
CPT/HCPCS: 99214

== ENCOUNTER → 2024-12-05 13:59 | Outpatient (BNVA) | payer MEDICARE, SELFPAY | PROVIDERS: PCP Internal Medicine; Visit Provider Internal Medicine Cardiovascular Disease | DX: I10 Essential (primary) hypertension (principal); I35.0 Nonrheumatic aortic (valve) stenosis | CPT/HCPCS: 99212 ==

== ENCOUNTER 2025-03-14 08:03 | Outpatient (REF) | payer MEDICARE, SELFPAY ==
--- OUTSIDE RECORDS SUMMARY | 2023-10-23 05:00 | XMS_ITS ---
Author Organization [facility] Address [address] [place] [id number] Care Team Providers Care Dental Office Receptionist Name Role Phone Jos Mirza MD Primary Care Provider Unavailabl Mic Cruz Unavailable [phone] Sullivan Encounters Encounter Location Date Provider Diagnosis [address] [address] 10/23/2023 Mic Mo Plan Of Treatment Next Appt Details Provider Name:Mic Mo , 05/16/2025 10:00:00 AM, [address] [place] [address], [phone], Progress Notes * Karthikeyan LAM ADOB: (84 yo M)Acc No.[id number]:10/23/2023 Progress Note Patient: Karthikeyan WILD Provider: Yung Mo DPM :1940 A ge:83 Y S ex:Male Date:10/23/2023 Address:[address] [place], [place] [id number] Pcp:Jos Mirza MD Subjective: * Chief Complaints: [...] 10/23/2023 Generated for Nighat neely/Duncan/Melo on: 1 08:10 AM EDT
--- OUTSIDE RECORDS SUMMARY | 2024-01-05 05:30 | XMS_ITS ---
Author Organization [facility] Address [address] [place] [id number] Care Team Providers Care Washcloth Folder Name Role Phone Jos Mirza MD Primary Care Provider Unavailabl Mic Cruz Unavailable [phone] REASON FOR VISIT for sooner apt Encounters Encounter Location Date Provider Diagnosis [address] [address] 01/05/2024 Mic Mo Plan Of Treatment Next Appt Details Provider Name:Mic Mo , 05/16/2025 10:00:00 AM, [address] [place] [address], [id number], Progress Notes * Karthikeyan LAM ADOB: (84 yo M)Acc No.[id number]:01/05/2024 Progress Note Patient: Karthikeyan WILD Provider: Yung Mo DPM :1940 A ge:83 Y S ex:Male Date:01/05/2024 Address:[address] [place], [place] [id number] Pcp:Jos Mirza MD Subjective: * Chief Complaints: [...] 0 01/05/2024 Generated for Nighat neely/Duncan/Melo on: 08:10 AM EDT
--- OUTSIDE RECORDS SUMMARY | 2025-03-14 08:10 | XMS_ITS | Encounter Summary ---
Author Organization [facility] Address [address] [place] [address] Phone Care Team Providers Care Heel Cover Splitter Name Role Phone Jos Mirza DO Unavailable Brianna Cano MD Unavailable Alysa Winn FISHER NET Unavailable Izzy Guillermo MD Unavailable Katie Schulz DPM Unavailable Unavailable Lev Miller TUBE TELLER Unavailable [phone] Esme Zamora FISHER NET Unavailable Jos Mirza DO Primary Care Provider [phone] Jos Mirza DO Primary Care Provider [phone] Encounter Details Date Type Department Care Team (Late st Contact Info) Description 03/23/2017 Transcribe Orders [facility] [address] [place] [address] Brianna Cano MD [address] [facility], 2nd [place] [address] Acute hematogenous osteomyelitis, unspecified site (Primary Dx) Social History Tobacco Use Types Packs/Day Years Used Date Smoking Tobacco: Never Assessed Sex and Gender Information Value Date Recorded Sex Assigned at Not on file Legal Sex Male 10:12 PM EDT Gender Identity Not on file Sexual Orientation Not on file documented as of this encounter Plan of Treatment Not on file documented as of this encounter Results * (ABNORMAL) Sedimentation rate (ESR) (03/23/2017 3:06 PM EDT) ESR 52(H) 0 - 20 mm/h [facility] Blood 03/23/2017 3:06 PM EDT 03/23/2017 3:11 PM EDT us Brianna Cano MD LAB BLOOD ORDERABLES Final R esult Performing Organization Address City/[facility]/ZIP Co de Phone Number [address] [address] * (ABNORMAL) Creatinine/eGFR (03/23/2017 3:06 PM EDT) CREATININE 1.80(H) 0.5 - 1.5 mg/dL [facility] EGFR 37 mL/min/1.7 3m2 [facility] Comment:Abnormal if <60. If patient is -Peruvian, multiply the result by 1.21. Blood 03/23/2017 3:06 PM EDT 03/23/2017 3:11 PM EDT us Brianna Cano MD LAB BLOOD ORDERABLES Final R esult Performing Organization Address City/[facility]/ZIP Co de Phone Number [address] [address] * (ABNORMAL) BUN (03/23/2017 3:06 PM EDT) BUN 33(H) 6 - 19 mg/dL [facility] Blood 03/23/2017 3:06 PM EDT 03/23/2017 3:11 PM EDT us Brianna Cano MD LAB BLOOD ORDERABLES Final R esult Performing Organization Address City/[facility]/ZIP Co de Phone Number [address] [address] * (ABNORMAL) C-Reactive Protein (03/23/2017 3:06 PM EDT) C REACTIVE PROTEIN 0.9(H) 0 - 0.5 mg/L [facility] Blood 03/23/2017 3:06 PM EDT 03/23/2017 3:11 PM EDT us Brianna Cano MD LAB BLOOD ORDERABLES Final R esult [facility] [address] [place] [address] * (ABNORMAL) CBC and differential (03/23/2017 3:06 PM EDT) WBC 9.26 3.40 - 11.20 K/uL [facility] RBC 4.22(L) 4.50 - 5.50 M/uL [facility] HGB 11.9(L) 13.0 - 17.0 g/dL [facility] HCT 35.4(L) 40.0 - 51.0 % [facility] PLT 266 130 - 400 K/uL [facility] MCV 83.9 79.0 - 98.0 [facility] MCH 28.2 27.0 - 34.8 pg [facility] MCHC 33.6 31.5 - 36.0 g/dL [facility] RDW 13.2 10.8 - 14.6 % [facility] MPV 11.0 9.4 - 12.4 [facility] NRBC 0.00 /100 WBCs [facility] ABSOLUTE NRBC 0.00 K/uL [facility] DIFF METHOD Auto [facility] NEUTS 60.6 45.30 - 77.70 % [facility] LYMPHS 20.7 12.30 - 39.70 % [facility] MONOS 10.8 4.10 - 12.80 % [facility] EOS 5.6 0 - 7.2 % [facility] BASOS 1.5 0 - 2.80 % [facility] Granulocytes, immature (%) 0.8 0.0 - 0.9 % [facility] ABSOLUTE NEUTS 5.61 1.40 - 7.70 K/uL [facility] ABSOLUTE LYMPHS 1.92 0.60 - 3.20 K/uL [facility] ABSOLUTE MONOS 1.00(H) 0.11 - 0.59 K/uL [facility] ABSOLUTE EOS 0.52(H) 0.01 - 0.50 K/uL [facility] ABSOLUTE BASOS 0.14(H) 0.00 - 0.08 K/uL [facility] Granulocytes, immature 0.07(H) 0.00 - 0.05 K/uL [facility] Blood 03/23/2017 3:06 PM EDT 03/23/2017 3:11 PM EDT us Brianna Cano MD LAB BLOOD ORDERABLES Final R esult Performing Organization Address [facility]/ZIP Co de Phone Number [address] [address] * LFTs (hepatic panel) (03/23/2017 3:06 PM EDT) ALKALINE PHOSPHATASE 84 39 - 117 U/L [facility] TOTAL BILIRUBIN 0.2 0 - 1.2 mg/dL [facility] DIRECT BILIRUBIN <0.2 0 - 0.3 mg/dL [facility] Bilirubin (Indirect) NOT CALCULATED 0 - 1.5 mg/dL [facility] AST 15 0 - 37 U/L [facility] ALT 12 0 - 40 U/L [facility] TOTAL PROTEIN 7.7 6.5 - 8.0 g/dL [facility] ALBUMIN 4.3 3.9 - 4.8 g/dL [facility] GLOBULIN 3.4 1 - 4.8 g/dL [facility] A/G Ratio 1.26 1.00 - 4.80 RATIO [facility] Blood 03/23/2017 3:06 PM EDT 03/23/2017 3:11 PM EDT us Brianna Cano MD LAB BLOOD ORDERABLES Edited Result - Final Performing Organization Address [facility]/ZIP Co de Phone Number [address] [address] documented in this encounter Visit Diagnoses Diagnosis Acute hematogenous osteomyelitis, unspecified site- Primary documented in this encounter Care Teams Heel Cover Splitter Relationship Specialty Start Date End Date Jos Mirza DO [address] [place] [address] [email or web address] PCP - General Internal Medicine 03/20/17 04/22/17 JuneJos lairdDO [address] [place] [address] PCP - General Internal Medicine 04/23/17 Hermes Jos CassidyDO [address] [place] [address] Historical LMR Provider 03/09/17 04/02/17 Brianna Cano MD [address] [place] [address] [email or web address] Surgeon General Surgery 03/09/17 Alysa Winn, FISHER NET [address] [place] [address] [email or web address] Historical LMR Provider 03/09/17 2 Izzy Guillermo MD [address] [place] [address] [email or web address] Surgeon General Surgery 03/09/17 Katie Schulz DPM [address] [place] [address] Historical LMR Provider 03/09/1706/01/21 Lev Miller, TUBE TELLER [address] [place] [address] [email or web address] Nurse Practitioner General Surgery 03/09/17 Esme Zamora NP [address] [place] [address] Historical LMR Provider 03/09/17 2 documented as of this encounter Additional Source Comments The information contained in this document represents components of the legal health record. It is not the complete legal health record.[facility]
--- OUTSIDE RECORDS SUMMARY | 2025-03-14 08:10 | XMS_ITS | Patient Health Record ---
Author Organization [facility] Address [address] [place] [address] Care Team Providers Care Absence Management Consultant Name Role Phone Hermes MILIAN, Jos Primary Care Provider Mic Thibodeaux Unavailable [phone] Allergies Allergen (clinical drug ingredient) Drug/Non Drug Allergy documented on EMR Reaction Allergy Type Onset Date Status Adhesive Tape rash, itching Drug Allergy Active Latex Latex Unknown Allergy Active omeprazole Omeprazole legs swelling, kidney issues Drug Allergy Active Results Component Value Reference Range Notes HEMOGLOBIN A1C (GLYCOHEMOGLO BIN) Reviewed date:10/25/2024 09:15:42 AM Interpretation: Performing Lab: Notes/Report: HEMOGLOBIN A1C % (HH) 6.1 HEMOGLOBIN A1C (GLYCOHEMOGLO BIN) Reviewed date:01/31/2025 11:15:21 AM Interpretation: Performing Lab: Notes/Report: HEMOGLOBIN A1C % (HH) 6.2 Reason For Referral No Information Medications Medication SIG (Take, Route, Frequency, Duration) Notes Start Date End Date Status Doxycycline Monohydrate 100 MG 1 capsule Orally Once a day; Duration: 10 day(s) Not-Edwardo ing INVanz Not-Taking Probiotic Not-Taking Aspirin 81 MG 1 tablet Orally Once a day Not-Taking Iodosorb 0.9 % as directed External ly Apply to ulceration daily with dry sterile dressing; Duration: 30 days 10/01/2021 Not-Taking Extra Depth Orthopedic Shoes (1 Pair) with Customized Heat Molded Multidensity Innersoles (3 Pair) as directed Dx: NIDDM/Polyneuropathy (E11.42), Hammertoe Foot Deformity (M20.41,M20.42), Preulcerative Skin Lesion(s) (L85.1 Active Losartan Potassium 100 MG 1 tablet Orally Once a day Not-Taking Clopidogrel Bisulfate 75 MG 1 tablet [...] 8 hrs; Duration: 10 days Not-Takin g Vitamin B12 1000 MCG 1 tablet Orally Onc e a day Active Probiotic Not-Taking Vitamin D3 1000 UNIT 1 capsule Orally On ce a day Active Metoprolol Succinate 25 MG 1 capsule Orally Once a day; Duration: 30 day(s) Active Fish Oil 1000 MG 1 capsule Orally Onc e a day Not-Taking NIFEdipine ER 90 MG 1 tablet on an empty stomach Orally Once a day Active Omeprazole 20 MG 1 capsule 30 minutes before morning meal Orally Once a day; Duration: 30 day(s) Not-Taking Immunizations Vaccine Route Administration Date Status Comme nts Influenza Unknown 01/23/2022 Administered Influenza Unknown 01/23/2023 Administered Influenza Unknown 02/23/2024 Administered COVID-19 Pfizer BioNTech Vaccine Unknown 02/19/2021 [...] Problem Acquired hammer toe of right foot (4178233737416874 ) Other hammer toe(s) (acquired), right foot (M20.41) Active confirmed Response to treatment, Improvemen t Problem Acquired hammer toe of left foot (9433866629903559 ) Other hammer toe(s) (acquired), left foot (M20.42) Active confirmed Response to treatment, Improvemen t Problem Polyneuropathy due to type 2 diabetes mellitus (203137079) Type 2 diabetes mellitus with diabetic polyneuropathy (E11.42) Active confirmed Vital Signs Blood pressure diastolic 80 mm Hg 01/31/2025 Height 6 ft 3 in in 01/31/2025 Blood pressure systolic 142 mm Hg 01/31/2025 Weight 195 lbs 01/31/2025 BMI 24.37 kg/m2 01/31/2025 Procedures Procedure Date Ordered Date Performed Result Body Sit e 30812-QIUNMTA NAIL, 6 OR MORE 04/19/2024 N/A 35053- Debride <25 sq cm 04/19/2024 N/A 67807-VKOVYOA SKIN/TISSUE 04/19/2024 N/A 78919-XZNM SKIN LESIONS, 2 TO 4 04/19/2024 N/A 30092-PWCAAKJ NAIL, 6 OR MORE 07/22/2024 N/A 13261- Debride <25 sq cm 07/22/2024 N/A 28597-SUAT SKIN LESIONS, 2 TO 4 07/22/2024 N/A 81313-UNFQVAP NAIL, 6 OR MORE 10/25/2024 N/A 12701-MBHG SKIN LESIONS, OVER 4 10/25/2024 N/A 29657-JYVGPAI NAIL, 6 OR MORE 01/31/2025 N/A 81910-RRQY SKIN LESIONS, OVER 4 01/31/2025 N/A 94626-Monf. 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 ; Other hammer toe(s) (acquired), right foot M20.41 ; Other hammer toe(s) (acquired), left foot M20.42 and Skin ulcer of toe of left foot, limited to breakdown of skin L97.[address] [address] 07/22/2024 Mic Mo Type 2 diabetes mellitus with diabetic polyneuropathy E11.42 ; Tinea unguium B35.1 and Neuropathic ulcer of right foot, limited to breakdown of skin L97.[address] [address] 10/25/2024 Mic Mo Type 2 diabetes mellitus with diabetic polyneuropathy E11.42 ; Tinea unguium B35.1 ; Other hammer toe(s) (acquired), right foot M20.41 and Other hammer toe(s) (acquired), left foot M20.[address] [address] 01/31/2025 Mic Mo Type 2 diabetes mellitus with diabetic polyneuropathy E11.42 ; Tinea unguium B35.1 ; Other hammer toe(s) (acquired), right foot M20.41 ; Other hammer toe(s) (acquired), left foot M20.42 and Subungual hematoma of left foot, initial encounter S90.222A Assessments Encounter Date Diagnosis (ICD Code) Assessment [...] E11.42) 10/25/2024 Tinea unguium (ICD-10 - B35.1) 01/31/2025 Type 2 diabetes mellitus with diabetic polyneuropathy (ICD-10 - E11.42) 01/31/2025 Tinea unguium (ICD-10 - B35.1) 04/19/2024 Neuropathic ulcer of left foot with fat layer exposed (ICD-10 - L97.522) Response to treatment, improving, Unresolved Patient Educated with: WOUND CARE INSTRUCTIONS. pdf (WOUND CARE INSTRUCTIONS. pdf) 01/31/2025 Other hammer toe(s) (acquired), right foot (ICD-10 - M20.41) 07/22/2024 Neuropathic ulcer of right foot, limited to breakdown of skin (ICD-10 - L97.511) Response to treatment Nonapplicable Patient Educated with: WOUND CARE INSTRUCTIONS. pdf (WOUND CARE INSTRUCTIONS. pdf) 10/25/2024 Other hammer toe(s) (acquired), right foot (ICD-10 - M20.41) Patient Educated with: DIABETIC FOOT CARE INSTRUCTIONS. pdf (DIABETIC FOOT CARE INSTRUCTIONS. pdf) 04/19/2024 Other hammer toe(s) (acquired), right foot (ICD-10 - M20.41) Response to treatment,Improve ment 10/25/2024 Other hammer toe(s) (acquired), left foot (ICD-10 - M20.42) 01/31/2025 Other hammer toe(s) (acquired), left foot (ICD-10 - M20.42) 04/19/2024 Other hammer toe(s) (acquired), left foot (ICD-10 - M20.42) Response to treatment,Improve ment 04/19/2024 Skin ulcer of toe of left foot, limited to breakdown of skin (ICD-10 - L97.521) Response to treatment improving Patient Educated with: WOUND CARE INSTRUCTIONS. pdf (WOUND CARE INSTRUCTIONS. pdf) 01/31/2025 Subungual hematoma of left foot, initial encounter (ICD-10 - S90.222A) 04/19/2024 Other 10/25/2024 Other 01/31/2025 Other Plan Of Treatment Pending Test Test Name Order Date X ray : Foot, left 3V 05/26/2023 01275-AIJYKAL NAIL, 6 OR MORE 05/26/2023 45855-YIAODRD NAIL, 6 OR MORE 11/20/2023 96674-NRGTZBA NAIL, 6 OR MORE 02/02/2024 82374-AJMQANB NAIL, 6 OR MORE 04/19/2024 56286-ZIHMDPW NAIL, 6 OR MORE 07/22/2024 74334-OUZHWVQ NAIL, 6 OR MORE 10/25/2024 10575-BGKNMVT NAIL, 6 OR MORE 01/31/2025 80007-XLCJMVS NAIL, 6 OR MORE 10/16/2017 37489-XKQXMGQ NAIL, 6 OR MORE 12/22/2017 64152-PQANSBQ NAIL, 6 OR MORE 05/07/2018 61610-KPBLUUL NAIL, 6 OR MORE 07/16/2018 10594-AJCWPLZ NAIL, 6 OR MORE 02/23/2018 18591-MWKPBZM NAIL, 6 OR MORE 09/24/2018 33376-NZJBXMD NAIL, 6 OR MORE 12/10/2018 47725-PQBCBYN NAIL, 6 OR MORE 03/01/2019 91530-DDKPBYK NAIL, 6 OR MORE 05/31/2019 33277-YFYMFXE NAIL, 6 OR MORE 09/27/2019 84880-RLXBBXB NAIL, 6 OR MORE 01/03/2020 13654-QMVUPDD NAIL, 6 OR MORE 03/30/2020 89680-AKUZWCJ NAIL, 6 OR MORE 06/15/2020 06469-FJITLTI NAIL, 6 OR MORE 09/14/2020 11867-GAAOSIP NAIL, 6 OR MORE 04/23/2021 19841-YAIERYN NAIL, 6 OR MORE 08/30/2021 42631-NPGGOMF NAIL, 6 OR MORE 11/15/2021 48826-FZQMKXL NAIL, 6 OR MORE 02/07/2022 02191-FNNLGZC NAIL, 6 OR MORE 04/25/2022 79117-DCOCFBC NAIL, 6 OR MORE 07/01/2022 92186-MMEOZNQ NAIL, 6 OR MORE 09/02/2022 47310-DTAVKJN NAIL, 6 OR MORE 11/21/2022 36453-WBYHGHM NAIL, 6 OR MORE 01/30/2023 71267-VHLIURU NAIL, 1-5 08/11/2023 38480- Debride <25 sq cm 05/26/2023 54422- Debride <25 sq cm 07/22/2024 15893- Debride <25 sq cm 04/19/2024 16202- Debride <25 sq cm 08/08/2022 47991- Debride <25 sq cm 07/01/2022 15718- Debride <25 sq cm 04/25/2022 19870- Debride <25 sq cm 12/20/2021 69952- Debride <25 sq cm 02/10/2020 46011- Debride <25 sq cm 01/03/2020 02841-UKYNYAV SKIN/TISSUE 12/26/2019 71452-YDIXKNA SKIN/TISSUE 02/10/2020 73986-ZKOLVYS SKIN/TISSUE 03/30/2020 42135-QPYWAOS SKIN/TISSUE 10/10/2019 64562-NUPIZVU SKIN/TISSUE 10/25/2019 83241-UNIBQOM SKIN/TISSUE 03/19/2022 04779-NSJQNUD SKIN/TISSUE 01/30/2023 62900-BUDWHZV SKIN/TISSUE 11/15/2021 49157-SVNVLJK SKIN/TISSUE 08/30/2021 36066-GLSFZNE SKIN/TISSUE 09/10/2021 61723-WIBWNAC SKIN/TISSUE 10/01/2021 66382-YRCVSAM SKIN/TISSUE 06/15/2020 15414-HUCZQNQ SKIN/TISSUE 04/19/2024 58888-KIVZCLT SKIN/TISSUE 02/02/2024 09024-WMHHOVA SKIN/TISSUE 11/20/2023 40265-SFGKIPG SKIN/TISSUE 06/25/2022 39572-VSOCUVQ SKIN/TISSUE 05/26/2023 61784-LWJCOMF SKIN/TISSUE 08/11/2023 16560 I&D ABSCESS- SIMPLE,SINGLE 020 56159-WZMU SKIN LESIONS, OVER 4 10/17/19 18 26347-ZOHZ SKIN LESIONS, OVER 4 09/27/19 20 39458-MHZJ SKIN LESIONS, OVER 4 05/31/19 20 96776-KPHY SKIN LESIONS, OVER 4 03/30/20 20 55526-NZTJ SKIN LESIONS, OVER 4 01/03/20 20 97187-VHEB SKIN LESIONS, OVER 4 03/01/20 19 59540-ORQI SKIN LESIONS, OVER 4 12/11/19 19 49730-GHEX SKIN LESIONS, OVER 4 09/25/19 19 80218-FDOK SKIN LESIONS, OVER 4 05/07/20 18 02595-TBOC SKIN LESIONS, OVER 4 07/16/19 19 66315-QTTF SKIN LESIONS, OVER 4 02/24/20 18 18382-KKJY SKIN LESIONS, OVER 4 12/23/19 18 84720-LTOY SKIN LESIONS, OVER 4 06/15/19 21 03227-UHFY SKIN LESIONS, OVER 4 04/23/20 21 97501-PFIK SKIN LESIONS, OVER 4 09/15/19 21 85001-FVJG SKIN LESIONS, OVER 4 08/31/19 22 64113-PPXS SKIN LESIONS, OVER 4 06/24/20 22 13712-CNDH SKIN LESIONS, OVER 4 02/08/20 22 98500-ZQFO SKIN LESIONS, OVER 4 01/31/20 23 29226-PERP SKIN LESIONS, OVER 4 11/22/19 23 25900-SMFJ SKIN LESIONS, OVER 4 09/03/19 23 88378-DTQO SKIN LESIONS, OVER 4 04/25/20 22 20074-HYOF SKIN LESIONS, OVER 4 07/01/19 23 08807-BYKD SKIN LESIONS, OVER 4 05/26/19 24 76556-QKIT SKIN LESIONS, OVER 4 11/20/19 24 91173-RHKG SKIN LESIONS, OVER 4 02/01/20 25 17263-POQR SKIN LESIONS, OVER 4 10/26/19 25 23209-HMEF SKIN LESIONS, 2 TO 4 02/02/20 24 72905-ASYI SKIN LESIONS, 2 TO 4 04/19/20 24 30280-AGPB SKIN LESIONS, 2 TO 4 07/22/19 25 63397-POWI SKIN LESIONS, 2 TO 4 08/11/19 24 90574-Rxav. Subungual Hematoma 5 L5056-UAHGDXQT DYSTROPHIC NAILS ANY # 75754-Mhcmezvjp, Toes 10/25/2019 51657 - Tenotomy, open flexor 02/28/2020 40676 - Tenotomy, open flexor 09/03/2018 94032 - Tenotomy, open flexor 07/15/2022 89654 - Tenotomy, open flexor 08/15/2022 04142 - Tenotomy, open flexor 01/13/2023 36602 - Tenotomy, open flexor 07/03/2020 Next Appt Details Provider Name:Mic Mo , 05/16/2025 10:00:00 AM, [address] [place], [address], Insurance Providers Payer Name Payer Address Payer Phone Subscriber Number Group Number Insured Name Patient Relationship to Insured Coverage Start Date Coverage End Date [employer] [place] Medicare Advantage [address] [facility] [address] [id number] Karthikeyan Lazo Self - patient is the [...] in toe antibiotics 42 da ys 12/04/2020 [facility] - infection toe 07/10/2018 [facility] for toe infection 01/15 -01/21 [place] for toe infections 05/20/17
--- OUTSIDE RECORDS SUMMARY | 2025-03-14 08:11 | XMS_ITS | Encounter Summary ---
Author Organization [facility] Address [address] [place] [address] [place] [address] Phone Care Team Providers Care Electric Motor Repairing Supervisor Name Role Phone CarterBrianna MD Unavailable [phone] Alysa Winn OBSTETRIC ANAESTHETIST Unavailable [phone] Izzy Guillermo MD Unavailable [phone] Katie Schulz DPM Unavailable Unavailable Lev Miller CAR REPAIRER Unavailable [phone] Esme Zamora OBSTETRIC ANAESTHETIST Unavailable [phone] Jos Mirza DO Primary Care Provider [phone] Encounter Details Date Type Department Care Team (Late st Contact Info) Description 07/10/2017 Ancillary Orders [facility] - [address] [address] Mariah Carias, CAR REPAIRER [address] [place] [address] [email or web address] Nausea Social History Tobacco Use Types Packs/Day Years Used Date Smoking Tobacco: Never Smokeless Tobacco: Never Sex and Gender Information Value Date Recorded Sex Assigned at Not on file Legal Sex Male 10:12 PM EDT Gender Identity Not on file Sexual Orientation Not on file documented as of this encounter Plan of Treatment Not on file documented as of this encounter Results * XR ABDOMEN SERIES SUPINE WITH DECUBITIS/ERECT AND SINGLE VIEW CHEST (07/10/2017 4:53 PM EST) Anatomical Region Laterality Modality Abdomen Radiographic Suzanna ging 07/10/2017 4:55 PM EST Impressions 07/10/2017 4:57 PM EST Nonspecific bowel gas pattern without free intraperitoneal air. No evidence of active cardiopulmonary disease. POS [id number] Narrative 07/10/2017 4:57 PM EST COMPARISON: None FINDINGS: A PA view of the chest reveals lungs to be well-expanded and grossly clear without focal infiltrates or pleural effusions present. This access port catheter tip is positioned in the SVC. AP supine and upright views of the abdomen disclose a non-specific, grossly non-obstructive bowel gas pattern without free intraperitoneal air. A moderate amount of stool appears to be present in the ascending colon. No large opaque urinary calculi or acute bony abnormalities demonstrated. Procedure Note Puja Jenkins MD - 07/10/2017 COMPARISON: None FINDINGS: A PA view of the chest reveals lungs to be well-expanded and grosslyclear without focal infiltrates or pleural effusions present. This accessport catheter tip is positioned in the SVC. AP supine and upright views of the abdomen disclose a non-specific,grossly non-obstructive bowel gas pattern without free intraperitonealair. A moderate amount of stool appears to be present in the ascendingcolon. No large opaque urinary calculi or acute bony abnormalitiesdemonstrated. IMPRESSION: Nonspecific bowel gas pattern without free intraperitoneal air. No evidence of active cardiopulmonary disease. POS [id number] Mariah Carias CAR REPAIRER IMG XR ABDOMEN Final Resul t documented in this encounter Visit Diagnoses Diagnosis Nausea Nausea alone Nausea Nausea alone documented in this encounter Care Teams Electric Motor Repairing Supervisor Relationship Specialty Start Date End Date Jos Mirza DO [address] [place] [address] [email or web address] PCP - General Internal Medicine 04/23/17 Brianna Cano MD [address] [place] [address], [address] [place] [address] Surgeon General Surgery 03/09/17 Alysa Winn NP [address] [place] [address] [email or web address] Historical LMR Provider 03/09/17 2 Izzy Guillermo MD [address] [place] [address] [email or web address] Surgeon General Surgery 03/09/17 Katie Schulz DPM [address] [place] [address] Historical LMR Provider 03/09/1706/01/21 Lev Miller CAR REPAIRER [address] [place] [address] [email or web address] Nurse Practitioner General Surgery 03/09/17 Esme Zamora NP [address] [place] [address] Historical LMR Provider 03/09/17 2 documented as of this encounter Additional Source Comments The information contained in this document represents components of the legal health record. It is not the complete legal health record.[facility]
--- OUTSIDE RECORDS SUMMARY | 2025-03-14 08:11 | XMS_ITS | Encounter Summary ---
Author Organization [facility] Address [address] [place] [address] [place] [address] Phone Care Team Providers Care Face And Fill Packer Name Role Phone RachaelBrianna MD Unavailable [phone] Alysa Winn ANALYTICAL LAB ANALYST Unavailable [phone] Izzy Guillermo MD Unavailable [phone] Katie Schulz DPM Unavailable Unavailable Lev Miller BILLING COLLECTIONS SPECIALIST Unavailable [phone] Esme Zamora ANALYTICAL LAB ANALYST Unavailable [phone] Jos Mirza DO Primary Care Provider [phone] Encounter Details Date Type Department Care Team (Late st Contact Info) Description 01/18/2018 Ancillary Orders Virtual Department 30 [place] [address] Mariah Carias, BILLING COLLECTIONS SPECIALIST [address] [place] [address] Social History Tobacco Use Types Packs/Day Years [...] on filedocumented in this encounter Care Teams Face And Fill Packer Relationship Specialty Start Date End Date Jos Mirza DO [address] [place] [address] [email or web address] PCP - General Internal Medicine 04/23/17 Brianna Cano MD [address] [place] [address] [email or web address] Surgeon General Surgery 03/09/17 Alysa Winn NP [address] [place] [address] [email or web address] Historical LMR Provider 03/09/17 2 Izzy Guillermo MD [address] [place] [address] [email or web address] Surgeon General Surgery 03/09/17 Katie Schulz DPM [address] [place] [address] Historical LMR Provider 03/09/1706/01/21 Lev Miller, BILLING COLLECTIONS SPECIALIST [address] [place] [address] [email or web address] Nurse Practitioner General Surgery 03/09/17 Esme Zamora NP [address] [place] [address] Historical LMR Provider 03/09/17 2 documented as of this encounter Additional Source Comments The information contained in this document represents components of the legal health record. It is not the complete legal health record.[facility]
--- OUTSIDE RECORDS SUMMARY | 2025-03-14 08:11 | XMS_ITS | Encounter Summary ---
Author Organization [facility] Address [address] [place] [address] [place] [address] Phone Care Team Providers Care Merchandise Associate Name Role Phone CarterBrianna MD Unavailable Alysa Winn METROLOGY TECHNICIAN Unavailable [phone] Izzy Guillermo MD Unavailable [phone] Katie Schulz DPM Unavailable Unavailable Lev Miller ENGINEER PROCESS Unavailable [phone] Esme Zamora METROLOGY TECHNICIAN Unavailable [phone] Jos Mirza DO Primary Care Provider [phone] Encounter Details Date Type Department Care Team (Late st Contact Info) Description 01/18/2018 Ancillary Orders Virtual Department 30 [place] [address] Mariah Carias, ENGINEER PROCESS [address] [place] [address] Cellulitis of toe, left Social History Tobacco Use Types Packs/Day Years Used Date Smoking Tobacco: Never Smokeless Tobacco: Never Sex and Gender Information Value Date Recorded Sex Assigned at Not on file Legal Sex Male 10:12 PM EDT Gender Identity Not on file Sexual Orientation Not on file documented as of this encounter Plan of Treatment Not on file documented as of this encounter Visit Diagnoses Diagnosis Cellulitis of toe, left documented in this encounter Care Teams Merchandise Associate Relationship Specialty Start Date End Date Jos Mirza DO [address] [place] [address] PCP - General Internal Medicine 04/23/17 Brianna Cano MD [address] [place] [address] Surgeon General Surgery 03/09/17 Alysa Winn NP [address] [place] [phone] [email or web address] Historical LMR Provider 03/09/17 2 Izzy Guillermo MD [address] [place] [address] Surgeon General Surgery 03/09/17 Katie Schulz DPM [address] [place] [address] Historical LMR Provider 03/09/1706/01/21 Lev Miller, ENGINEER PROCESS [address] [place] [address] [email or web address] Nurse Practitioner General Surgery 03/09/17 Esme Zamora NP [address] [place] [address] Historical LMR Provider 03/09/17 2 documented as of this encounter Additional Source Comments The information contained in this document represents components of the legal health record. It is not the complete legal health record.[facility]
--- OUTSIDE RECORDS SUMMARY | 2025-03-14 08:11 | XMS_ITS | Clinical Summary ---
Author Organization [facility] Address [address] [place] [address] Care Team Providers Care Hadoop Software Engineer Name Role Phone Jos Mirza DO Primary Care Provider [phone] Allergies Active Allergy Reactions Criticality Noted Date [...] 04/28/2022 05/21/2023 Diabetes mellitus 04/03/2017 05/21/2023 Immunizations Immunization Administration Dates Next Due Influenza, Quadrivalent, Wit [...] Due Date Last Done Comments Pneumococcal Vaccine: 50+ Years (2 of 2 - PCV) 12/14/2018 12/14/2017 Diabetes: Hemoglobin A1C 06/24/2020 Diabetes: Ophthalmology Exam 06/24/2020 Diabetes: Pedal Pulse Checked 06/24/2020 Diabetes: Sensory Foot Exam 06/24/2020 Diabetes: Visual Foot Exam 06/24/2020 Influenza Vaccine (#1) 2025 2, 03/26/2021, 01/15/2021, Additional history exists Pneumococcal Vaccine: Peds (0 to 5 Years) and At-Risk Patients (6 to 49 Years) Discontinued 12/14/2017 Hepatitis B Vaccine Aged Out No longe r eligible based on patient's age to complete this topic Insurance Care Teams Hadoop Software Engineer Relationship Specialty Start Date End Date Jos Mirza DO [address] [facility] [place] [address] PCP - General 06/04/20
--- OUTSIDE RECORDS SUMMARY | 2025-03-14 08:11 | XMS_ITS | Encounter Summary ---
Author Organization [facility] Address [address] [place] [address] Phone Care Team Providers Care Sole Layer Name Role Phone JuneJos laird DO Primary Care Provider [phone] Encounter Details Date Type Department Care Team (Late st Contact Info) Description 10/15/2022 Telephone [facility] [address] [place] [address] Mehnaz Lamb Social History Tobacco [...] on filedocumented in this encounter Care Teams Sole Layer Relationship Specialty Start Date End Date JuneJos laird DO [address] [facility] [phone] PCP - General 06/04/20 documented as of this encounter
--- OUTSIDE RECORDS SUMMARY | 2025-03-14 08:11 | XMS_ITS | Patient Health Record ---
Author Organization [facility] Address [address] [place] [address] Care Team Providers Care Orchid Transplanter Name Role Phone Jos Mirza Primary Care Provider Too Torres Jr Unavailable Allergies Allergen (clinical drug ingredient) Drug/Non Drug Allergy documented on EMR Reaction Allergy Type Onset Date Status Latex Latex Unknown Allergy Active Reason For Referral No Information Medications Medication SIG (Take, Route, Frequency, Duration) Notes Start Date End Date Status Vitamin B12 500 MCG 1 tablet Orally Once a day; Duration: 30 day(s) Active Calcium 600 MG 1 tablet with meals Orally Once a day Active NIFEdipine ER 90 MG Oral; Duration: 90 Active Metoprolol Succinate ER 25 MG 1 tablet Orally Once a day; Duration: 30 day(s) Active Flaxseed Oil 1000 MG as directed Orally Active Pantoprazole Sodium 20 MG 1 tablet Orall y Once a day; Duration: 30 day(s) Active Vitamin C 500 MG as directed Orally Active Fish Oil 1000 MG 1 capsule Orally Onc e a day; Duration: 30 day(s) Active Vitamin D3 1000 UNIT 1 capsule Orally On ce a day; Duration: 30 day(s) Active Immunizations Vaccine Route Administration [...] Problem Status W/U Status Risk Notes Problem Dysphagia (53814256) Other dysphagia (R13.19) Active confirmed Problem Dysphagia (55567660) Dysphagia (R13.10) Active confirmed Problem Esophageal stricture (52430831) Esophageal stricture (K22.2) Active confirmed Problem Gastric polyp (27733467) Gastric polyp (K31.7) Active confirmed Problem Achalasia (66270227) Achalasia (K22.0) Active confirmed Problem Regurgitation of food (719897509) Regurgitation of food (R11.10) Active confirmed Problem Essential hypertension (78146986) Hypertension, unspecified type (I10) Active confirmed Plan Of Treatment Future Test Test Name Order Date UPPER GI ENDOSCOPY BALLOOON DILATION OF ESOPH 03/11/2019 UPPER GI ENDOSCOPY BALLOOON DILATION OF ESOPH 02/17/2022 UPPER GI ENDOSCOPY 03/12/2022 Next Appt Details Provider Name:Too sun , 05/01/2025 01:35:00 PM, [address] [facility], [address], [place], [address], Insurance Providers Payer Name Payer Address Payer Phone Subscriber Number Group Number Insured Name Patient Relationship to Insured Coverage Start Date Coverage End Date [facility] [address] [place] [phone] [id number] LUNA LAM Self - patient is the insured Medical (General) History Medical History History ICD Code Type 2 diabetes mellitus, neuropathy hypertension kidney disease, stage 3 LINDA/CPAP SVT Diabetic foot infection Aortic stenosis Surgical History Surgery Date(Month/Year) Hospitalization History Reason Date(Month/Year) [facility], bone infection 2020
[2025-03-14 14:35] LABS: Hemoglobin A1C 129.0720 umol/L; Total Hemoglobin (HGBA1C) 2960.9792 umol/L
== END 2025-03-14 08:04 | disposition home or self-care (01) ==
LOC: HO.MANLDS 08:03
PROVIDERS: Visit Provider Internal Medicine
DX: E11.9 Type 2 diabetes mellitus without complications (principal)
CPT/HCPCS: 36415; 83036

== ENCOUNTER 2025-04-12 13:51 | Outpatient (AMB) | payer MEDICARE, SELFPAY ==
--- OUTSIDE RECORDS SUMMARY | 2023-10-23 04:00 | XMS_ITS ---
Author Organization [facility] Address [address] [place] [id number] Care Team Providers Care Quality Assurance Supervisor Body Name Role Phone Jos Mirza MD Primary Care Provider Unavailabl Mic Cruz Unavailable [phone] Sullivan Encounters Encounter Location Date Provider Diagnosis [address] [address] 10/23/2023 Mic Mo Plan Of Treatment Next Appt Details Provider Name:Mic Mo , 05/16/2025 10:00:00 AM, [address] [place] [address], [phone], Progress Notes * Karthikeyan LAM ADOB: (84 yo M)Acc No.[id number]:10/23/2023 Progress Note Patient: Karthikeyan WILD Provider: Yung Mo DPM :1940 A ge:83 Y S ex:Male Date:10/23/2023 Address:[address] [place], [place] [id number] Pcp:Jos Mirza MD Subjective: * Chief Complaints: * [address] Sullivan[address] * Medical History: Objective: * Vitals: Assessment: Plan: * Treatment: * Images: * The named appointment provid er may or may not be the originator of this progress note, and it is not deemed complete until electronically signed by the appointment provider. Sign off status: Pending * Provider: Yung Mo DPM Date: 0 10/23/2023 Generated for Nighat neely/Duncan/Melo on: 1 06/13/2024 01:59 AM EST
--- OUTSIDE RECORDS SUMMARY | 2024-01-05 04:30 | XMS_ITS ---
Author Organization [facility] Address [address] [place] [phone] Care Team Providers Care Food Concession Manager Name Role Phone Jos Mirza MD Primary Care Provider Unavailabl Mic Cruz Unavailable [phone] REASON FOR VISIT for sooner apt Encounters Encounter Location Date Provider Diagnosis [address] [address] 01/05/2024 Mic Mo Plan Of Treatment Next Appt Details Provider Name:Mic Mo , 05/16/2025 10:00:00 AM, [address] [place] [address], [phone], Progress Notes * Karthikeyan LAM ADOB: (84 yo M)Acc No.[id number]:01/05/2024 Progress Note Patient: Karthikeyan WILD Provider: Yung Mo DPM :1940 A ge:83 Y S ex:Male Date:01/05/2024 Address:[address] [place], [place] [id number] Pcp:Jos Mirza MD Subjective: * Chief Complaints: * 1 . For sooner apt. * Medical History: Objective: * Vitals: Assessment: Plan: * Treatment: * Images: * The named appointment provid er may or may not be the originator of this progress note, and it is not deemed complete until electronically signed by the appointment provider. Sign off status: Pending * Provider: Yung Mo DPM Date: 0 01/05/2024 Generated for Nighat neely/Duncan/Melo on: 06/13/2024 01:58 AM EST
[2025-04-12 14:08] VITALS: BP 132/62; PULSE 65; BMI 25.0
--- NOTE | 2025-04-12 14:08 | A.OFFVIS_ITS ---
Vital Signs 04/12/25 14:08 Height 6 ft 3 in Weight 200 lb BMI 25.0 BP 132/62 Blood Pressure Location Rt brachial Position Sitting Pulse 65 Pulse Source Pulse Oximeter Intake Visit Reasons: 4 mth Intake Note: 4 mth f/up Goat Farmer Required: No Accompanied by: Self / Same As Patient Allergies latex Adverse Reaction (Unknown, Uncoded 10/13/23 09:18) itchy since picc line has been put in Medication List - Last Reconciled 04/12/25 by Issa Degroot MD clopidogrel 75 mg PO DAILY hydralazine 25 mg PO TID metoprolol succinate ER 50 mg PO DAILY nifedipine ER 90 mg PO DAILY vitamin B complex (B Complex-Vitamin B12 tablet) 1 tab PO DAILY HPI Comments Details: 84-year-old gentleman here for follow-up. He has background history of chronic kidney disease, hypertension, mild aortic valve stenosis and supraventricular tachycardia versus atrial tachycardia. Clinically doing well. No chest pain or shortness of breath. EKG showing sinus rhythm at this point. He has white coat hypertension. Taking meds regularly. 05/20/2023: He returns for follow-up. In February 2023 he got admitted to the hospital with pneumonia and was given IV fluids for resuscitation and developed heart failure. He also had episode of atrial tachycardia while he was in the hospital and required amiodarone short term. He was diuresed and improved. He had diabetic foot infection and underwent angiography by vascular surgery with angioplasty of anterior tibial artery and peroneal artery on the left side. He was on aspirin and Plavix but apparently had a lot of groin who is an bleeding and both medications were stopped and it appears he has not started them since then. He also had left eye retinal detachment and underwent surgical treatment for that. He is following closely with railroad conductor. 10/21/23: He returns for follow-up. He underwent surgery for retinal detachment and also had cataract surgery. He still has ongoing visual issues and is seeing a retina specialist. He has no chest pains or shortness of breath. He has been fairly inactive due to right great toe amputation. He is following with vascular surgery closely. He is currently taking Plavix 75 mg daily. Blood pressure control is okay. 06/22/2024: He is here for follow-up. He had toe amputation and things improved after that. He also had angioplasty of no extremity by vascular surgery. He is taking Plavix monotherapy. No bleeding issues. Denying any leg pain. His is on hospice and he is under a lot of stress and was quite emotional and tearful. He said while he was with her in the hospital 1 day as he turn he just fell to the ground and he does not remember what happened. He is denying any dizziness or lightheadedness otherwise. No chest discomfort or shortness of breath. Echocardiography previously has shown moderate . 12/05/2024: He is here for follow-up. He has not been physically active since the of his . Still very emotional and tearful. His echocardiography has shown moderate aortic valve stenosis. Blood pressure mildly elevated but he has been told by his primary care physician that he has white coat hypertension. 04/12/2025: He is here for follow-up. He said while raking leaves he felt chest discomfort. This is more activity than his usual exercise. He is saying this is a consistent symptom and he feels uneasy feeling in his chest when he exercises. Blood pressure is well controlled. [facility] Medical History PAD (peripheral artery disease) CKD (chronic kidney disease) stage 4, GFR 15-29 ml/min HTN (hypertension) Osteomyelitis Sepsis Diabetic neuropathy History of osteomyelitis Aortic stenosis Cellulitis of foot Heart murmur Kidney disease Diabetes Surgical History Hx of colonoscopy Hx of esophagogastroduodenoscopy History of hammer toe correction (~05/2021) Family History Father Heart attack CVD (cardiovascular disease) Mother Colon cancer Social History Household Members: Spouse Housing: House Do you presently have visiting nurse or other home services: No Alcohol intake: never Patient Tobacco Use Status: Never used Tobacco Advance Directives Date on File: 04/14/23 service: No Current occupational status: retired Review of Systems Const Denies chills, Denies fatigue, Denies fever(s), Denies frequent falls, Denies weakness, Denies weight gain and Denies weight loss ENT Denies dizziness Card Denies chest pain, Denies leg edema, Denies lightheadedness, Denies palpitations, Denies dyspnea and Denies dyspnea on exertion Resp Denies cough, Denies dyspnea and Denies dyspnea on exertion GI Denies hematochezia Musc Denies abnormal gait, Denies muscle weakness, Denies numbness, Denies radiating pain into limb and Denies tingling Neuro Denies abnormal gait, Denies dizziness, Denies frequent falls, Denies numbness, Denies tingling and Denies weakness Endo Denies fatigue and Denies palpitations Physical Exam Vital Signs: Last Vital Signs Pulse 65 04/12/25 14:08 BP 132/62 04/12/25 14:08 BMI result Body Mass Index 25.0 GENERAL APPEARANCE: in no acute distress, pleasant. NECK: no carotid bruit, no jugular venous distention. Normal carotid upstrokes. SKIN: no suspicious lesions, warm and dry. HEART: Ejection systolic murmur aortic area with feeble 2nd heart sound, regular rate and rhythm. LUNGS: Clear to auscultation. ABDOMEN: soft, nontender. EXTREMITIES: Mild edema. PERIPHERAL PULSES: equal. NEUROLOGIC: No gross deficits, AAO X 3 Assessment & Plan Assessment & Plan (1) Aortic stenosis: Code(s): I35.0 - Nonrheumatic aortic (valve) stenosis Category: Medical (2) Hypertension: Code(s): I10 - Essential (primary) hypertension Category: Medical (3) Chest pain: Code(s): R07.9 - Chest pain, unspecified Category: Medical Plan Pleasant 84 year gentleman with moderate aortic valve stenosis, chronic kidney disease, atrial tachycardia in the past and diastolic heart failure. Blood pressure well controlled. Clinically not in heart failure. He is complaining of uneasy feeling in his chest when he does raking and physical activity. This is a new finding for him. He has known history of peripheral vascular disease and has risk factors for coronary disease including hypertension, chronic kidney disease and diabetes. He has moderate aortic valve stenosis by echocardiography in June 2024. I will arrange a stress MIBI for him. We will do a modified Seun protocol for him. On Plavix for peripheral vascular disease. Follow-up in few months. Thank you for allowing me to participate in the care of your patient. Please feel free to contact me if you have any questions. Orders: Orders CA stress test Today R07.9 - Chest pain, unspecified NM cardiolite stress test Today R07.9 - Chest pain, unspecified Coding Level of Care Code Est Pt Level 4 (79773) Diagnoses Aortic stenosis I35.0 Hypertension I10 Chest pain R07.9
--- OUTSIDE RECORDS SUMMARY | 2025-04-13 01:58 | XMS_ITS | Data Portability ---
Author Organization [facility] Telehealth Patient Home Address [address] [place] [address] Assessment Encounter Date Assessment Date Assessment LastModified by Organization Details LastModified Time 01/17/2025 01/17/2025 Patient presente d to office today for [...] risks and promote healthy living. Not available 01/17/2025 13:21:45 Plan of Treatment Reminders Order Date Submit Date Provider Last Modified By Organization Details Last Modified Time Details Appointments FOLLOW UP 15 2025 11:15A M MANUEL BILLS Not available Not available Not available MEDICARE ANNUAL WELLNESS 2025 10:30A M MANUEL BILLS Not available Not available Not available Lab CMP, serum or plasma 2024 [id number] [facility] (Outpatient), [address] [place] [address], [id number], 09/27/2024 10:44:40 hemoglobi n A1c, QN, blood 2024 [id number] [facility] (Outpatient), [address] [place] [address], [id number], 09/27/2024 10:44:40 CBC w/ auto diff 2024 025 [facility] (Outpatient), [address] [place] [address], [id number], 09/27/2024 10:44:40 Referral None recorded. Procedures None recorded. Surgeries None recorded. Imaging None recorded. Medication Orders None recorded. Patient TargetsNo targets recorded. Patient Instructions Encounter Date Encounter Id Patient Instructions Last Modified By Organization Details Last Modified Time 01/17/2025 [id number] Discussed and explained advance directives such as standard forms to the . Face to face discussion lasted for a duration of ___ minutes. Not available 01/17/2025 13:21:45 Reason for Referral None Reported. Results Created Date Observation Date Name Description Value Unit Range Abnormal Flag Note LastModifiedBy Organization Detail LastModifiedTime 03/14/2003/14/2025 hemog lobin A1c, QN, blood A1C 6.1 abnormal Not Available [facility] (Medical Records) [address] [place], [address], 03/15/2025 11:07:47 Result Notes None recorded. Problems Name Problem SNOMED Code Status Onset Date Resolution Date Notes Provider Name and Address Organization Details Recorded Time Gastroeso phageal reflux disease 320136501 Active 2017 Jennifer arthur [facility] Internal [facility] 5 14:18:50 Esophagea l web / ring 330900129 Active 2017 Jennifer arthur [facility] Internal [facility] 5 14:19:05 Hypertens esperanza disorder 65950562 Active 2017 white coat Jennifer arthur [facility] 5 14:18:50 Osteomyel itis 64954328 Active 2017 Jennifer arthur [facility] 5 14:19:05 Chronic kidney disease 022057412 Active 2017 Jennifer arthur [facility] 5 14:18:50 Inflamed seborrhei c keratosis 089586966 Active 2017 Jennifer arthur [facility] 5 14:19:05 Type 2 diabetes mellitus 22836336 Active 2017 MANUEL BILLS [address] [place], [address], [facility] 5 09:37:13 Neuropath y due to diabetes mellitus 845805052 [facility] 14:[facility] Well controlle d type 2 diabetes mellitus 274153071 Active 2017 MANUEL BILLS [address] [place], [address], [facility] 5 14:29:31 Systolic murmur 44223925 [facility] 2019 [facility] 14:18:50 Labile hypertens ion due to being in a clinical environme nt 466379874 Active 2019 Not Available [facility] 1 14:23:18 Hiatal hernia 98772337 Active 2020 small Jennifer arthur, [facility] 5 14:18:50 COVID-19 187928373 Active 2022 Jennifer Mcintosh [facility] 5 14:19:05 Ulcer of toe 350197414 Active 2022 Jennifer Mcintosh [facility] 5 14:19:05 Aortic stenosis, non-rheum atic 047864185 Active 2022 Jennifer arthur, [facility] 5 14:18:50 Bilateral lower leg edema 933977716 Active 2022 Jennifer arthur, [facility] 5 14:19:05 Achalasia 70140402 Active 2022 type 2 Jennifer arthur, [facility] 5 14:18:50 Aspiratio n pneumonia 020742143 Active 2022 Jennifer arthur, [facility] 5 14:19:05 Ulcer of foot 16177301 Active 2023 Jennifer arthur, [facility] 5 14:19:05 Cataract due to diabetes mellitus type 2 367054772 Active 2023 Jennifer Mcintosh null, [facility] 5 14:18:50 Osteomyel itis of right foot 301609525958 9100 Active 2023 Jennifer Mcintosh null, [facility] 5 14:19:05 Chronic regurgita tion 93889532 Active 2023 Jennifer Mcintosh null, [facility] 5 14:18:50 Osteomyel itis of left foot 398451264310 9107 Active 2023 Jennifer Mcintosh null, [facility] 5 14:19:05 Abnormal weight loss 980261181 Active 2023 Jennifer Mcintosh null, [facility] 5 14:19:05 Essential hypertens ion 82371608 Active 2023 Jennifer Mcintosh null, [facility] 5 14:18:50 Fall Active 2023 Jennifer Mcintosh null, [facility] 5 14:19:05 Physical deconditi oning 030380933611 02 Active 2023 Jennifer Mcintosh null, [facility] 5 14:18:50 Pain of left knee joint 847565609703 107 Active 2023 Jennifer Mcintosh null, [facility] 5 14:19:05 Acute hyperkale desiree 0105957 Active 2023 Jennifer Mcintosh null, [facility] 5 14:19:05 Right inguinal hernia 488746112 Active 2024 Jennifer Mcintosh null, [facility] 5 14:18:50 Gastro-es ophageal reflux disease with esophagit is 228434529 Active 20[address]ILLS [address] [place] [address], [place], [address], [facility] Internal [facility] 5 15:59:15 Mixed hyperlipi demia 250849383 Active 2024 MANUEL BILLS [address] [place] [address], [address], [facility] 5 10:42:35 Grief finding 727863209 Active 2024 MANUEL BILLS [address] [place] [address], [facility] 5 10:40:04 Notes:Some problems listed i n Documents: #[id number], #[id number], #[id number], #[id number], #[id number] could not be added to this patient's chart. Please review these documents and add these problems to the patient's chart manually as needed. Problem Notes None recorded. Procedures Surgical History Date Name Laterality Status Provider Name and Address Organization Details Recorded Time 020 Arthrocentesis Major Joint/Bursa completed August [address], [address], [facility] 07/29/2019 11:49:15 020 Removal of foreign body in ear canal completed Tamra [address], [phone] [place] [address] 07/29/2019 11:50:25 Imaging Results None recorded. Procedure Notes None recorded. Medical Equipment None Reported. Allergies Allergen ID Allergen Name Allergen Category Reaction Reaction Severity Criticality Documentation Date Start Date Code Code System Note Provider Name and Address Organization Details Recorded Time 251 adhesive environme nt,medica tion Not available Not available Not available 04/09/2018 [facility] 8 15:08:01 9729 Latex (substanc e) environme nt,medica tion Not available Not available Not available 04/11/20252023 67669 8007 SNOMED Not Available [facility] [employer] - prod 03:49:59 9730 latex environme nt,medica tion other Not available Not available 04/11/20252020 12348 91 RxNorm Other react ion(s ): itchy Not Available [employer] - prod 5 03:50:33 9731 omeprazol e medicatio n Not available Not available Not available 04/11/20252023 7646 RxNorm Other React ion(s ): legs swell ing, kidne y issue s Not Available [employer] External Data [employer] - prod 5 03:50:33 9737 Adhesive agent (substanc e) environme nt,medica tion Not available Not available Not available 04/11/20252020 97587 0007 SNOMED Not Available [employer] - prod 03:51:22 Medications Name Sig Start Date Stop Date [...] 1 TABLET BY MOUTH THREE TIMES DAILY 2024 active Not Available Not Available Not Avai lable acetamino phen 300 mg-codein e 30 mg [...] scale: IF GLUCOSE IS 130-150 use 2 bzyez203 -200 use 4 pkztu776 -250 use 6 xqwla128 -300 use 8 -350 use 10 units>35 1 use 12 [...] Available Not Avai lable FreeStyle Ana 2 [place] USE DIRECTED TO TEST BLOOD GLUCOSE active [...] /min 99 % 99 % 154/84 mm[Hg] Jennifer Mcintosh MA [facility] 5 10:25:45 Date Recorded Body height Heart rate Oxygen saturation Oxygen saturation in Arterial blood by Pulse oximetry Systolic And Diastolic Provider Name and Address Organization Details Last Updated DateTime 5 190.5 cm 60 /min 98 % 98 % 184/82 mm[Hg] Jennifer Mcintosh MA [facility] 5 10:15:16 Date Recorded Body height Body mass index (BMI) Body weight Heart rate Oxygen saturation Oxygen saturation in Arterial blood by Pulse oximetry Systolic And Diastolic Provider Name and Address Organization Details Last Updated DateTime 5 190.5 cm 24.1 kg/m2 80986.3 3 g 56 /min 97 % 97 % 156/88 mm[Hg] Jennifer Mcintosh [facility] 5 10:12:39 Date Recorded Body height Body mass index (BMI) Body weight Heart rate Oxygen saturation Oxygen saturation in Arterial blood by Pulse oximetry Systolic And Diastolic Provider Name and Address Organization Details Last Updated DateTime 5 190.5 cm 24.4 kg/m2 53078.5 1 g 62 /min 98 % 98 % 140/78 mm[Hg] Jennifer Drew [facility] 5 13:26:18 Date Recorded Body height Body mass index (BMI) Body weight Oxygen saturation Oxygen saturation in Arterial blood by Pulse oximetry Heart rate Systolic And Diastolic Provider Name and Address Organization Details Last Updated DateTime 5 190.5 cm 25 kg/m2 61195.4 7 g 98 % 98 % 67 /min 128/76 mm[Hg] JOY RAM [facility] 5 14:16:16 Social History Question Answer Notes LastModified by Organizat ion Details LastModified Time Tobacco Smoking Status Never Smoker Not Available [facility] 03/27/2020 03:36:24 What Was The Date Of Your Most Recent Tobacco Screening? 04/11/2025 [email or web address] Information not available 04/11/2025 Sex: Unknown Functional Status Question Answer Note [...] zoster live 10/24/19 12 completed Nai arthur [facility] 02/03/2018 16:12:49 Influenza, split virus, quadrivalent, preservative 01/16/20 21 completed Jos Mirza, DO [address] [place], [address], [facility] 04/16/2021 09:59:56 COVID-19, mRNA, LNP-S, PF, 30 mcg/0.3 mL dose 02/21/20 21 completed Emily Neumann [facility] 05/13/2021 10:01:17 influenza, unspecified formulation 01/31/20 22 completed Jos Mirza, [address] [place] [address], [address], [facility] 07/25/2022 13:39:10 Influenza, split virus, quadrivalent, preservative 01/19/20 19 completed Simi Riddle [facility] 01/19/2019 08:07:19 pneumococcal polysaccharide PPV23 12/15/19 18 completed Not Available [facility] 06/25/2019 02:14:52 Influenza, split virus, quadrivalent, preservative 02/07/20 20 [facility]2020 13:36:29 zoster recombinant 05/29/19 21 [facility]/30/2020 13:55:39 zoster, unspecified formulation 08/14/19 21 [facility]/14/2020 14:30:47 COVID-19, mRNA, LNP-S, PF, 30 mcg/0.3 mL dose 07/20/19 21 [facility]2020 13:37:20 COVID-19, mRNA, LNP-S, PF, 30 mcg/0.3 mL dose 07/05/19 21 [facility]/15/2020 13:37:30 Td(adult) unspecified formulation 09/27/19 17 completed Nai Cole [facility] 01/27/2018 08:24:33 Influenza, split virus, quadrivalent, preservative 01/30/20 18 completed Jos Mirza DO [address] [place] [address], [address], [facility] 01/30/2018 14:25:04 Past Encounters Encounter ID Performer Location Encounter Start Date Encounter Closed Date Diagnosis/Indication Diagnosis SNOMED-CT Code Diagnosis ICD10 Code Diagnosis IMO Codes Diagnosis Note [id number] Jos Mirza [facility] [address] [facility] [place] [address] 09/08/2017 10:25:07 09/08/2017 12:21:26 Adult health examination 208151243 Z00.01 cont to follow up with wound care drs and his bp dr Active or passive immunization 382281602 Z23 [id number] Jos Mirza [facility] [address] [facility],[place] [address] 12/09/2017 15:14:15 12/09/2017 16:34:28 Cellulitis of lower limb 883778393 L03.119 due to concern for recurrent cellulitis and acute skin changes recommend starting abx Diabetic foot ulcer 3710 14974 E11.40 Type 2 chip betes mellitus 24553179 E11.65 Hypertensive disorder 38 489767 I10 123/63 this morning at home white coat [id number] Jos Mirza [facility] [address] [facility],[place] [address] 12/11/2017 11:41:34 12/11/2017 12:46:01 Type 2 diabetes mellitus 65260488 E11.9 a1c is 6.5 and pt is doin g well Hypertensive disorder 38 041140 I10 stable Cellulitis of foot 93182 6007 L03.119 increase cephalexin to qid and follow closely will receck next week [id number] Jos Mirza DO [facility] [address] [facility],[place] [address] 12/15/2017 13:23:34 12/15/2017 16:09:58 Cellulitis of toe 91227980 L03.032 clearing continue with abx for next 5 days and finish all [id number] Jos Mirza [facility] [address] [facility], [place] [address] 01/18/2018 10:28:06 01/18/2018 13:31:11 Cellulitis of toe 98249835 L03.032 Neuropathy due to diabetes mellitus 661869691 E11.[address] Berna dubose Hypertensive disorder 38 062931 I10 follow Chronic ki dney disease 622235797 N18.9 stable, creat 2, no micro albumin [id number] Jos Mirza [facility] [address] [facility],[place] [address] 01/27/2018 11:10:50 01/27/2018 16:23:20 Fatigue 19908465 R53.83 Infection of toe 4863747 06 L08.9 f/u wound care Chronic ki dney disease 476104739 N18.9 creatinine up to 2.31, to recheck next Thursday Skin react ion irritant 120802307 R23.8 avoid cortisone [id number] Jos Mirza [facility] [address] [facility], [place] [address] 02/05/2018 11:37:03 02/05/2018 12:16:23 Neuropathy due to diabetes mellitus 622317092 E11.40 Hypertensive disorder 38 325177 I10 follow Chronic ki dney disease 054145449 N18.9 creat improved to 1.8 [id number] Jos Mirza [facility] [address] [facility], [place] [address] 03/31/2018 15:17:57 03/31/2018 16:20:54 Painful rectal bleeding 361125529 K62.5 [id number] Jos Mirza [facility] [address] [facility], [place] [address] 04/09/2018 15:02:16 04/09/2018 16:26:21 Adult health examination 042037315 Z00.01 cont to follow up with wound care drs and his bp dr Screening for cardiovascular system disease 147006101 Z13.6 no symptoms noted needs cholestero l ordered Screening for malignant neoplasm of colon 873060097 Z12.11 had 2 yrs ago Hypertensive disorder 38 688881 I10 stable overall at home is in 110's over 60's Type 2 chip betes mellitus 01354935 E11.9 a1c is 6.1 and pt is doing well Osteomyelitis 07875717 M 86.9 ongoing treatment of left foot and is having leaking daily so hole is still present has a silver alginate dressing applied daily this has been ongoing for 1 year will prob need more hyperbaric treatment [id number] Jos Mirza DO [facility] [address] [facility] [place] [facility] [address],[place] [facility] [place] [address] 07/14/2018 09:31:53 07/14/2018 10:06:22 Osteomyelitis 86096365 M86.9 ongoing treatment of left foot and is having leaking daily so hole is still present has a silver alginate dressing applied daily but this was stopped as it was too occlusive this has been ongoing for 1 year will prob need more hyperbaric treatment Cellulitis of lower leg 753998618 L03.119 is resolving on levaquin will finish culture not taken has appearance of completely resolved cellulitis after only 3 days of levaquin Type 2 chip betes mellitus 63912938 E11.9 a1c is 6.3 and pt is doing well Chronic ki dney disease 027887134 N18.9 is actually stable with his creat 1.88 Hypertensive disorder 38 492343 I10 stable overall now on losartan 100 mg at home is in 110's over 60's [id number] Jos Mirza DO [facility] [address] [facility],[place] [address] 10/11/2018 14:17:14 10/11/2018 14:57:47 Type 2 diabetes mellitus 60452725 E11.9 a1c is 6.5 and pt is doing well Hypertensive disorder 38 716695 I10 stable overall now on losartan 100 mg at home is in 110's over 60's Neuropathy due to diabetes mellitus 887019113 E11.40 cont with keeping his sugar controlled Chronic ki dney disease 278684645 N18.9 creat has increased to 2.8 and is worrisome and will need to continue follow with Dr Duran Edema of l ower extremity 007054120 R60.0 possibilit y of nifedipine being the cause [id number] Jos Mirza DO [facility] [address] [facility] [place] [facility] [address],[place] 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 K22.2 please send prior notes from [place] ([facility] [place]) [id number] Jos Mirza [facility] [address] [facility], [place] [facility] [address] 06/17/2019 15:04:08 06/17/2019 16:09:39 Chronic kidney disease 131966716 N18.9 Awaiting documentat ion from Neph Was referred to Heme/Onc likely for anemia GFR stable at 28 Neuropathy due to diabetes mellitus 858944284 E11.40 cont with keeping his sugar controlled Hypertensive disorder 38 758727 I10 BP well controlled Started doxazosin 2 mg by nephrology Type 2 chip betes mellitus 24971161 E11.9 A1C is 6.6 up from 6.4 stable [id number] Jos Mirza [facility] [address] [facility],[place] [facility] [place] [address] 07/29/2019 10:52:25 07/29/2019 12:10:52 Bursitis of olecranon of left elbow 8178626094 95161 M70.22 successful olecranon bursa drainage f/u if fluid returns Foreign janeth dy in left ear 8177492809 8073346 T16.2XXA ear tube removed from canal without complicati on Foreign janeth dy in right ear 9364017022 0799907 T16.1XXA ear tube removed from canal without complicati on Hypertensive disorder 38 024987 I10 stable Systolic murmur 01529129 R01.1 known [id number] Jos Mirza [facility] [address] [facility], [place] [facility] [address] 10/18/2019 15:12:37 10/18/2019 15:51:40 Type 2 diabetes mellitus 51321361 E11.9 A1C is 6.6 up from 6.4 stable Osteomyelitis 97064505 M 86.9 ongoing treatment of left foot and is having leaking daily so hole is still present has a silver alginate dressing applied daily but this was stopped as it was too occlusive this has been ongoing for 1 year had some more work done on his 3rd left toe has been starte don his abx Hypertensive disorder 38 259489 I10 BP well controlled Started doxazosin 2 mg by nephrology [id number] Jos Mirza DO [facility] [address] [facility] [place] [address] 11/16/2019 14:45:53 11/16/2019 15:29:21 Cellulitis 393102535 L03.90 resolving well healing will finish rest of 9 days of Keflex Chronic ki dney disease 228126617 N18.9 stable Neuropathy due to diabetes mellitus 897430255 E11.40 stable Hypertensive disorder 38 866947 I10 BP elevated today, mostly likely due to infection, is trending down will continue to monitor Osteomyelitis 41903085 M 86.9 discussing with specialist Type 2 chip betes mellitus 37683231 E11.21 stable [id number] Jos Mirza [facility] Internal [facility] [address] [facility], [place] [address] 02/01/2020 13:26:40 02/01/2020 14:04:23 Type 2 diabetes mellitus 65198492 E11.9 A1C is 6.6 again as it was last time and before up from 6.4 stable Hypertensive disorder 38 304863 I10 BP well controlled Started doxazosin 2 mg by nephrology Neuropathy due to diabetes mellitus 171960920 E11.40 cont with keeping his sugar controlled 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 7680643 K22.2 doing well with this he is asymptomat ic Gastroesop hageal reflux disease 120989492 K21.9 quiet and doing well Chronic ki dney disease 003596898 N18.9 Awaiting documentat ion from Neph Was referred to Heme/Onc likely for anemia GFR stable at 28 Osteomyelitis 62558106 M 86.9 ongoing treatment of left foot and is having leaking daily so hole is still present has a silver alginate dressing applied daily but this was stopped as it was too occlusive this has been ongoing for 1 year had some more work done on his 3rd left toe has been starte don his abx Iron deficiency 21063084 E61.1 noted by his other specialist told to add iron foodstuff 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 821718511 I15.8 home bps are excellent [id number] Jos Mirza DO [facility] [address] [facility],[place] [address] 04/16/2020 14:36:49 04/16/2020 15:22:24 Hypertensive disorder 01120678 I10 BP elevated today, mostly likely due to infection, is trending down will continue to monitor Type 2 chip betes mellitus 98354325 E11.21 stable Pruritic disorder 211440 002 L29.9 trial of steriod and antihistam ine Diabetic foot 660357915 E11.59 will try antifungal Ingrowing nail of toe of right foot 1891146138 8502769 L60.0 doing well [id number] Jos Mirza, [facility] [address] [facility],[place] [address] 04/24/2020 13:52:46 04/24/2020 14:36:15 Ingrowing nail of toe of right foot 3618789489 6907818 L60.0 fu of his ingrown toe doing well on ketoconazo le Edema of l ower extremity 498852013 R60.0 will start on lasix and check BMP for CKD will also check TSH to see if related to swelling and itching will fu with possible vascular referral Chronic ki dney disease 007558685 N18.9 stable Cellulitis 866640014 L03 .90 r/o osteomyeli tis [id number] Jos Mirza, [facility] [address] [facility],[place] [address] 05/14/2020 13:27:57 05/14/2020 14:27:06 Hypertensive disorder 40335253 I10 BP well controlled Started doxazosin 2 mg by nephrology Type 2 chip betes mellitus 70959039 E11.9 A1C is 6.7 and was 6.6 again as it was last time and before up from 6.4 stable Chronic ki dney disease 002271848 N18.9 Awaiting documentat ion from Neph Was referred to Heme/Onc likely for anemia of chronic ds GFR stable at 28 still has creat elevated followed by dr duran Osteomyelitis 33039505 M 86.9 ongoing treatment of left foot and is having noted improvemen t and near resolution Neuropathy due to diabetes mellitus 420832682 E11.40 cont with keeping his sugar controlled he does have signif loss of sensation bilat Edema of lower leg 20189 7004 R60.0 relates that he is much improved and is going to use the furosemide on a prn [id number] Jos Mirza [facility] [address] [facility],[place] [address] 08/15/2020 13:32:58 08/15/2020 14:28:58 Chronic kidney disease 038726618 N18.9 Awaiting documentat ion from Neph which has still not come dr duran at Was referred to Heme/Onc likely for anemia of chronic ds GFR stable at 28 still has creat elevated at 2.1 but is slowly getting better followed by dr duran Type 2 cihp betes mellitus 01119584 E11.9 A1C is 6.5 was 6.7 and was 6.6 again as it was last time and before up from 6.4 stable Hypertensive disorder 38 641856 I10 BP well controlled HE WILL RESCHEDULE APPT IN 1 MONTH AND BRING IN HOME READINGS TO GET SCANNED has been elevated at dr offices bp 133 / 63 he has signif white coat hypertensi on nifedipine by nephrology [id number] Jos Mirza [facility] Medicine [address] [facility],[place] [address] 09/21/2020 14:24:25 09/21/2020 15:24:14 Hypertensive disorder 46736877 I10 BP well controlled HE WILL RESCHEDULE APPT IN 1 MONTH AND BRING IN HOME READINGS TO GET SCANNED has been elevated at dr offices bp 133 / 63 he has signif white coat hypertensi on nifedipine by nephrology Type 2 chip betes mellitus 91664836 E11.9 A1C is 6.5 was 6.7 and was 6.6 again as it was last time and before up from 6.4 stable Chronic ki dney disease 621262337 N18.9 Awaiting documentat ion from Neph which has still not come dr duran at Was referred to Heme/Onc likely for anemia of chronic ds GFR stable at 28 still has creat elevated at 1.99 but is slowly getting better followed by dr duran 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 923497037 I15.8 home bps are excellent [id number] Jos Mirza [facility] Internal Medicine [address] [facility] [place] [facility] [address],[place] [address] 12/17/2020 14:52:24 12/17/2020 15:31:42 Hypertensive disorder 22884835 I10 BP elevated today, mostly likely due to infection, is trending down will continue to monitor elevated in doctor's offices usually fine at home Osteomyelitis 49323463 M 86.9 discussing with specialist has fu in 4 weeks Neuropathy due to diabetes mellitus 428572557 E11.40 stable Type 2 chip betes mellitus 94119125 E11.21 stable [id number] Jos Mirza DO [facility] Internal Medicine [address] [facility],[place] [address] 01/16/2021 13:51:42 01/16/2021 15:12:45 Type 2 diabetes mellitus 99882877 E11.9 A1C is still 6.5 and prior 6.5 was 6.7 and was 6.6 again as it was last time and before up from 6.4 stable Hypertensive disorder 38 596856 I10 BP well controlled HE WILL RESCHEDULE APPT IN 1 MONTH AND BRING IN HOME READINGS TO GET SCANNED has been elevated at dr offices bp 133 / 63 he has signif white coat hypertensi on nifedipine by nephrology Chronic ki dney disease 893208850 N18.9 Awaiting documentat ion from Neph which has still not come dr duran at Was referred to Heme/Onc likely for anemia of chronic ds GFR stable at 28 still has creat elevated at 1.9 but is slowly getting better followed by dr duran Neuropathy due to diabetes mellitus 230040346 E11.40 cont with keeping his sugar controlled he does have signif loss of sensation bilat Osteomyelitis 44433842 M 86.9 ongoing treatment of left foot and is having noted improvemen t and near resolution [id number] Jos Mirza DO [facility] Internal Medicine [address] [facility],[place] [address] 04/16/2021 09:51:13 04/16/2021 15:08:26 Active or passive immunization 378820748 Z23 utd Adult heal th examination 413847323 Z00.00 cont to follow up with wound care drs and his bp jesse to have follow up with engineering technician parking for her hammertoe [id number] Jos Mirza DO [facility] Internal Medicine [address] [facility],[place] [facility] [address] 05/13/2021 09:53:26 05/13/2021 13:58:59 Hypertensive disorder 11159171 I10 stable at home, no medical interventi on needed 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 797512229 I15.8 stable, has high BP in clinical settings, good at home Pre-surger y evaluation 538100126 Z01.818 The patient was seen in the office today for pre-op evaluation . All medical conditions on patient's problem list were addressed and are currently stable, no interventi on needed at this time. Based on history and physical performed, the patient is cleared for surgery. Chronic ki dney disease 199780408 N18.9 stablerece nt visit with nephrologi st cleared patient [id number] Jos Mirza [facility] Medicine [address] [facility],[place] [address] 07/22/2021 13:43:25 07/23/2021 15:43:08 Clostridioides difficile infection 343035137 A04.72 resolved Hypertensive disorder 38 569056 I10 stable at home, no medical interventi on needed [id number] Jos Mirza [facility] Medicine [address] [facility],[place] [address] 08/21/2021 09:25:46 08/21/2021 13:55:05 Hypertensive disorder 66353640 I10 BP well controlled bp has been goodbp is now running 110/60s nifedipine by nephrology 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.40 cont with keeping his sugar controlled he does have signif loss of sensation bilat Osteomyelitis 78740439 M 86.9 now resolved doing wellsome discomfort around the callous areahas been scraping the callous himself Type 2 chip betes mellitus 48050328 E11.9 A1C is still 6.6 and wasw 6.5 and prior 6.5 was 6.7 and was 6.6 again as it was last time and before up from 6.4 stable [id number] Jos Mirza [facility] Medicine [address] [facility],[place] [address] 06/17/2022 11:49:05 06/18/2022 09:29:55 COVID-19 709596968 U07.1 will adjust steriod dennis to prednisone start cough suppressan tthe patient will also increase food intake [id number] Jos Mirza, [facility] Internal Medicine [address] [facility], [address] [facility] [address] 07/25/2022 13:22:11 07/25/2022 16:19:09 Active or passive immunization 914901443 Z23 [facility] Adult heal th examination 706874904 Z00.00 cont to follow up with wound care drs and his bp jesse to have follow up with engineering technician parking for her hammertoe Neuropathy due to diabetes mellitus 541967418 E11.40 cont with keeping his sugar controlled he does have signif loss of sensation bilat Osteomyelitis 31797930 M 86.9 now resolved doing wellsome discomfort around the callous areahas been scraping the callous himself Type 2 chip betes mellitus 96754518 E11.9 A1C is now up to 7.5 but he just lost 20lbs so he will be lower next 6.6 and was 6.5 and prior 6.5 was 6.7 and was 6.6 again as it was last time and before up from 6.4 stable Advance care planning 71 8491700 Z71.89 utd Hypertensive disorder 38 925623 I10 BP well controlled bp has been goodbp is now running 110/60s nifedipine by nephrology Gastroesop hageal reflux disease 562278134 K21.9 quiet and doing well Ulcer of toe 905619078 L 97.509 will need insert and sneaker [id number] Jos Mirza, [facility] Medicine [address] [facility],[place] [facility] [place] [address] 12/01/2022 10:22:12 12/01/2022 11:29:49 Type 2 diabetes mellitus 58407281 E11.9 A1C is now at 6.7 but he lost 20lbs 6.6 and was 6.5 and prior 6.5 was 6.7 and was 6.6 again as it was last time and before up from 6.4 stable Hypertensive disorder 38 710270 I10 BP well controlled bp has been goodbp is now running 110/60s nifedipine by nephrology Aortic jaime nosis, non-rheumatic 092315426 I35.0 has an upcoming echo Bilateral lower leg edema 028714572 R60.0 this is prob from the nifedipine [id number] Jos Mirza [facility] Medicine [address] [facility],[place] [address] 03/24/2023 09:38:11 03/24/2023 13:57:28 Essential hypertension 38234116 I10 medication adjusted in chartneeds new scripts for the metoprolol and nifedipine Achalasia 38609301 K22.0 having more issues with itno effect with his recent dilation Type 2 chip betes mellitus 20064723 E11.9 stableagre ed to endo consult for diabetic education Aspiration pneumonia 422 200100 J69.0 will set up with lab work [id number] Jos Mirza [facility] Medicine [address] [facility],[place] [address] [facility] [place] [address] 08/14/2023 14:01:17 08/14/2023 15:09:45 Essential hypertension 15108615 I10 has been stable no issues Hypertensive disorder 38 754885 I10 BP well controlled bp has been goodbp is now running 110/60s nifedipine by nephrology Neuropathy due to diabetes mellitus 550535997 E11.40 cont with keeping his sugar controlled he does have signif loss of sensation bilat a1c is 6.1 Type 2 chip betes mellitus 80908984 E11.9 A1C is now at 6.1 was 6.7 (but he lost 30lbs ) 6.6 and was 6.5 and prior 6.5 was 6.7 and was 6.6 again as it was last time and before up from 6.4 stable Aspiration pneumonia 422 861700 J69.0 quiet and reolved Chronic ki dney disease 518911872 N18.9 Awaiting documentat ion from Neph which has still not come dr duran at Was referred to Heme/Onc likely for anemia of chronic ds GFR stable at 28 still has creat elevated at 1.9 but is slowly getting better followed by dr duran Ulcer of foot 91665890 L 97.509 followed by wound nurse and podiatryco nt to use doxycyclin e Cataract d ue to diabetes mellitus type 2 547883148 E11.36 we will give him a pre op today [id number] Jos William Hermes [facility] Medicine [address] [facility],[place] [address] 09/04/2023 15:01:17 09/04/2023 16:06:40 Amputated big toe 423892286 Z89.411 stable Osteomyeli tis of right foot 9561346540 849844 M86.011 stable [id number] Jos William Hermes [facility] Medicine [address] [facility],[place] [address] 12/11/2023 13:35:43 12/11/2023 15:05:49 Depression screening 559889076 Z13.31 SCREENING NEGATIVE Hypertensive disorder 38 050185 I10 BP well controlled bp has been goodbp is now running 110/60s nifedipine by nephrology Type 2 chip betes mellitus 97979431 E11.9 A1C is now at 6.1 was 6.7 (but he lost 30lbs ) 6.6 and was 6.5 and prior 6.5 was 6.7 and was 6.6 again as it was last time and before up from 6.4 stable Neuropathy due to diabetes mellitus 417138963 E11.40 cont with keeping his sugar controlled he does have signif loss of sensation bilat a1c is 6.1 Aortic jaime nosis, non-rheumatic 092318585 I35.0 has an upcoming echo [id number] Jos CassidyEris Mirza [facility] Medicine [address] [facility], [place] [facility] [place] [address] 01/12/2024 13:52:17 01/12/2024 14:49:17 Adult health examination 703761709 Z00.00 cont to follow up with wound care drs and his bp jesse to have follow up with engineering [facility] Scre[facility] for cardiovascular system disease 709536078 Z13.6 no symptoms noted needs cholestero l ordered Screening for malignant neoplasm of colon 542362383 Z12.11 had 2 yrs ago Depression screening 171 620577 Z13.31 SCREENING NEGATIVE Chronic regurgitation 84 192298 R11.10 has had egd x 3 and seen multiple specialist s Type 2 chip betes mellitus 42366691 E11.9 A1C is now at 6.0, 6.1 was 6.7 (but he lost 30lbs ) 6.6 and was 6.5 and prior 6.5 was 6.7 and was 6.6 again as it was last time and before up from 6.4 stable [id number] Jos Mirza [facility] Medicine [address] [place] [address] 03/08/2024 10:53:58 03/08/2024 11:55:56 Gastroesophageal reflux disease 813713918 K21.00 suggested prilosec for reflux Abnormal weight loss 267 794361 R63.4 agreed to lab work [id number] Jos Mirza [facility] Internal [address] [address] 04/26/2024 09:25:17 04/26/2024 14:54:21 Fall R29.6 will set up with PT Physical deconditioning 1680269100 9102 R68.89 will set up with PT Pain of le ft knee joint 2886381445 56262 M25.562 will set up with XR Acute hyperkalemia 14935 00 E87.5 will set up with with lab work [id number] Jos Mirza [facility] Medicine [address] [place] [address] 06/10/2024 13:52:26 06/10/2024 14:45:37 Right inguinal hernia 293105052 K40.90 will set up with US abdomen/gr oin to check on size and appearance [id number] Jos Mirza [facility] Medicine [address] [place] [address] 08/26/2024 13:26:33 08/26/2024 13:57:57 Pre-surgery evaluation 669823587 Z01.818 Per the 2017 ACC cardiac risk stratifica tion (revised) this patient is deemed a low risk for the proposed cataract surgery and is cleared. The patient understand s to take his usual medication on the morning of his procedure . Depression screening 171 733667 Z13.31 SCREENING NEGATIVE Essential hypertension 64652910 I10 has been stable no issues [id number] Jos Mirza [facility] Medicine [address] [facility] [place] [facility] [address],[place] [address] 09/23/2024 10:44:53 09/23/2024 14:33:10 Depression screening 056927852 Z13.31 grief over Gastro-eso phageal reflux disease with esophagitis 409976457 K21.00 3677479576 suggested prilosec for refluxfu next week [id number] Jos Mirza [facility] Medicine [address] [facility] [place] [facility] [address],[place] [address] 09/27/2024 10:01:13 09/27/2024 10:46:02 Gastro-esophageal reflux disease with esophagitis 732725587 K21.00 8416475165 improving Chronic ki dney disease 384499263 N18.9 stablerece nt visit with nephrologi st cleared patient Essential hypertension 53395051 I10 stable Type 2 chip betes mellitus 66206131 E11.9 stableagre ed to endo consult for diabetic education Mixed hyperlipidemia 267 129524 E78.2 56805 [id number] Jos Mirza [facility] Medicine [address] [facility],[place] [address] 10/31/2024 10:03:50 10/31/2024 14:35:40 Depression screening 883659145 Z13.31 grief over still, is improving Gastro-eso phageal reflux disease with esophagitis 209836851 K21.01 3946936442 improving Grief finding 309959880 F43.20 21338 is improvingh as a good support money [id number] Jos Mirza [facility] Medicine [address] [facility] [place] [facility] [address],[place] [address] 11/30/2024 09:50:04 11/30/2024 14:10:35 Essential hypertension 88923092 I10 stable 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 5743164 K22.2 stable Gastroesop hageal reflux disease 552218781 K21.00 continue with prilosec Patient counseled 882960 003 Z71.89 948495 improving everyday still is sad but it doesn't interfere with his day to day function [id number] Jos Mirza DO [facility] Internal Medicine [address] [facility],[place] [address] 01/17/2025 13:16:41 01/17/2025 14:08:09 General examination of patient 020985342 Z00.00 67017463 stable [id number] Jos Mirza DO [facility] Internal Medicine [address] [facility],[place] [address] 04/11/2025 13:59:29 04/11/2025 15:19:36 Depression screening 435489606 Z13.31 grief over still, is improving over time Grief finding 736722684 F43.20 26214 is improvingh as a good support system Essential hypertension 31644240 I10 stable Well contr olled type 2 diabetes mellitus 633682889 E11.9 Z79.4 48742814 stable Health Concerns Section Related Observation LastModified by Organization Detai ls LastModified Time None Recorded Concern Status LastModified by Organization Details LastModified Time None Recorded Advance Directives Directive None Recorded Payers Insurance Date Sequence Insurance Name Policy Number Policy Lambert Covered Member ID Lambert Member ID Guarantor Name 04/08/2025 1 [facility] - MEDICARE ADVANTAGE PLAN (MEDICARE REPLACEMENT HMO) [id number] 1 Karthikeyan Lazo Sr. [id number] Karthikeyan Lazo Notes Date Note Type Note Provider Name and Address Organization Details Recorded Time 09/28/19 25 text/htm l ROS as noted in the HPI 2 week f/u hypoglycemia: the patient reports [...] on him eating more, and less sodium Jso Mizra DO [address] [place], [address], [facility] Medicine 11/01/2024 22:00:08 11/01/19 25 text/htm l ROS as noted in the HPI f/u appt GERD the patient reports that [...] need note for what they need from mewill contact the group since we didn't get a message pt said they were sendingprobably a fax issue recheck 143/80 R arm sitting after 10 minutes [employer] [employer] [address] [place] [address], [phone], [facility] Medicine 10/31/2024 10:41:55 12/01/19 25 text/htm l ROS as noted in the HPI f/u appt GERD 10/31/24 appt for GERD: [...] need note for what they need from mewill contact the group since we didn't get [...] patient the [facility] the pt is keeping himself busyhas a good support system and community [facility]UEL [employer]ILL[facility] [address] [place] [address], [phone], [facility] 11/30/2024 10:41:36 01/18/20 25 text/htm l Medicare Annual Wellness VisitReported by PatientSocial/Behavioral HistoryFor physical activity, patient reportsdecreased physical activitybut reportsdiscussed weightbearing activitiesanddiscussed exercise habits. For diet and nutrition, patient reportshealthy diet,discussed vitamin and supplement use,discussed portion control,discussed maintaining calcium balance, anddiscussed diet improvement. For fracture risk, patient reportsno history of fractures,no recent explained fracture,no sudden unexplained fractures, andno previous musculoskeletal injuries.Mental Status:For depression risk, patient reportsnever feels sad, empty, or tearful,no loss of interest in activities,no significant changes in weight,no sleep disturbances or insomnia,no agitation,no loss of energy,no feelings of worthlessness or guilt,no thoughts of suicide,no history of depression, andno history of mood disorders. For orientation, patient reportsno disorientation to time,no disorientation to date, andno disorientation to place. For concentration and memory, patient reportsno decreased concentrating ability,no memory lapses or loss, anddoes not forget words. For speech/motor difficulties, patient reportsno speech difficulties,no difficulty expressing formulated concepts,no difficulty with fine manipulative tasks,no difficulty writing/copying,no slowed reaction time, anddoes not knock things over when trying to pick them up.Functional AbilityFor hearing, patient reportsno loss of hearing. For vision, patient reportsno vision problems. For activities of daily living, patient reportsable to bathe with limited or no assistance,able to contol urination and bowels,able to dress with limited or no assistance,able to feed self with limited or no assistance,able to get out of chair or bed with limited or no assistance,able to groom with limited or no assistance, andable to toilet with limited or no assistance. For instrumental activities of daily living, patient reportsable to do house work with limited or no assistance,able to grocery shop with limited or no assistance,able to manage medications with limited or no assistance,able to manage money with limited or no assistance,able to prepare meals with limited or no assistance, andable to use the phone with limited or no assistance. For falls risk assessment, patient reportsno frequent falls while walking,no fall since last visit,no dizziness/vertigo, andfall(s) in the past year 2(working with pt which has helped with stability). 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, mild in the Lwill monitor the R every 6 mos to 12 [facility] who monitors his the patient is otherwise doing well have the copy of his findings to scan in to system [facility] (notes he didn't take any of his meds because they told him to not be only anything) which is probably why his bp was so high the patient does have his son moving in with him [facility]UEL [facility]ILLS [address] [facility], [place], [address], [facility] 01/17/2025 14:04:48 04/11/20 25 text/htm l ROS as noted in the HPI 3 mos f/u the patient is doing okayhas been trying to be more active and social with his community, friends and family as we discussed to help with the continued grief from the loss of his T2DM: Patient presents today for follow-up for Type 2 Diabetes Recent lab showed an A1c of 6.1% The patient has been compliant with medicationsThe patient has no complications or side effects at this timeThe patient has current concerns about related to their diabetes diagnosis are keeping his a1c controlled, has been stable over the last yearThe patient has been compliant with lifestyle changes including dietary changes, exercise and healthy habits Discussion about feet reveals normal examDiscussion about eyes reveal normal exam, wears glasses Treatment plan going forward is continue on current medications MANUEL [facility]ILL[facility] [address] [place] [address], [place], [address], [facility] 04/11/2025 14:50:48
--- OUTSIDE RECORDS SUMMARY | 2025-04-13 01:58 | XMS_ITS | Patient Health Record ---
[facility] Organization [facility] Address [address] [place] [address] Care Team Providers Care Glass Setter Name Role Phone Hermes MILIAN, Jos Primary Care Provider Mic Thibodeaux Unavailable [phone] Allergies Allergen (clinical drug ingredient) Drug/Non Drug [...] Problem Acquired hammer toe of right foot (8508106792536632 ) Other hammer toe(s) (acquired), right foot (M20.41) Active confirmed Response to treatment, Improvemen t Problem Acquired hammer toe of left foot (2016275052791671 ) Other hammer toe(s) (acquired), left foot (M20.42) Active confirmed Response to treatment, Improvemen t Problem Polyneuropathy due to type 2 diabetes mellitus (455960785) Type 2 diabetes mellitus with diabetic polyneuropathy (E11.42) Active confirmed Vital Signs Blood pressure diastolic 80 mm Hg 01/31/2025 Height 6 ft 3 in in 01/31/2025 Blood pressure systolic 142 mm Hg 01/31/2025 Weight 195 lbs 01/31/2025 BMI 24.37 kg/m2 01/31/2025 Procedures Procedure Date Ordered Date Performed Result Body Sit e 70344-CRQYBJA NAIL, 6 OR MORE 04/19/2024 N/A 63552- Debride <25 sq cm 04/19/2024 N/A 16323-ZHTBTEE SKIN/TISSUE 04/19/2024 N/A 06445-RJXE SKIN LESIONS, 2 TO 4 04/19/2024 N/A 00065-QJBQYBB NAIL, 6 OR MORE 07/22/2024 N/A 62559- Debride <25 sq cm 07/22/2024 N/A 55168-GGAC SKIN LESIONS, 2 TO 4 07/22/2024 N/A 53626-NIMDVWV NAIL, 6 OR MORE 10/25/2024 N/A 82793-CXRY SKIN LESIONS, OVER 4 10/25/2024 N/A 78157-ZJUORIY NAIL, 6 OR MORE 01/31/2025 N/A 07092-XZLE SKIN LESIONS, OVER 4 01/31/2025 N/A 54271-Sssl. 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 ; Other hammer toe(s) (acquired), right foot M20.41 ; Other hammer toe(s) (acquired), left foot M20.42 and Skin ulcer of toe of left foot, limited to breakdown of skin L97.[address] [address] 07/22/2024 Mic Mo Type 2 diabetes mellitus with diabetic polyneuropathy E11.42 ; Tinea unguium B35.1 and Neuropathic ulcer of right foot, limited to breakdown of skin L97.[address] [address] 10/25/2024 Mic Mo Type 2 diabetes mellitus with diabetic polyneuropathy E11.42 ; Tinea unguium B35.1 ; Other hammer toe(s) (acquired), right foot M20.41 and Other hammer toe(s) (acquired), left foot M20.[address] [address] 01/31/2025 Mic Mo Type 2 diabetes mellitus [...] X ray : Foot, left 3V 05/26/2023 57409-TBVQVCW NAIL, 6 OR MORE 05/26/2023 27320-TXOBNBN NAIL, 6 OR MORE 11/20/2023 20908-WYXZXJJ NAIL, 6 OR MORE 02/02/2024 19306-PNLCZAH NAIL, 6 OR MORE 04/19/2024 45743-WNHZDCG NAIL, 6 OR MORE 07/22/2024 06269-OEORAFG NAIL, 6 OR MORE 10/25/2024 62357-HZJNNQW NAIL, 6 OR MORE 01/31/2025 92754-LSXXPFU NAIL, 6 OR MORE 10/16/2017 24128-HRJJHCS NAIL, 6 OR MORE 12/22/2017 07630-BTXWKDB NAIL, 6 OR MORE 05/07/2018 03147-VAETIPL NAIL, 6 OR MORE 07/16/2018 09052-DPFYKBC NAIL, 6 OR MORE 02/23/2018 18060-SQIYFBT NAIL, 6 OR MORE 09/24/2018 78209-GYCCSXW NAIL, 6 OR MORE 12/10/2018 92424-TSQUTOB NAIL, 6 OR MORE 03/01/2019 51980-NCXORCS NAIL, 6 OR MORE 05/31/2019 97255-AFDWNFA NAIL, 6 OR MORE 09/27/2019 83673-OGHRQXR NAIL, 6 OR MORE 01/03/2020 14731-NQXSORC NAIL, 6 OR MORE 03/30/2020 93520-YJOCNIU NAIL, 6 OR MORE 06/15/2020 35408-YRGOLEK NAIL, 6 OR MORE 09/14/2020 36148-LPMGEWX NAIL, 6 OR MORE 04/23/2021 47056-GOWWNLW NAIL, 6 OR MORE 08/30/2021 61786-LBLGYGA NAIL, 6 OR MORE 11/15/2021 82990-BYDAYTQ NAIL, 6 OR MORE 02/07/2022 23899-VBIDRHL NAIL, 6 OR MORE 04/25/2022 67542-VFFSSYC NAIL, 6 OR MORE 07/01/2022 72900-DTAFOAB NAIL, 6 OR MORE 09/02/2022 99938-YUOLQKL NAIL, 6 OR MORE 11/21/2022 82602-LVVMELG NAIL, 6 OR MORE 01/30/2023 10890-QQTMIGA NAIL, 1-5 08/11/2023 26153- Debride <25 sq cm 05/26/2023 78791- Debride <25 sq cm 07/22/2024 79917- Debride <25 sq cm 04/19/2024 99392- Debride <25 sq cm 08/08/2022 22949- Debride <25 sq cm 07/01/2022 65156- Debride <25 sq cm 04/25/2022 65873- Debride <25 sq cm 12/20/2021 40548- Debride <25 sq cm 02/10/2020 53538- Debride <25 sq cm 01/03/2020 32790-BHDFAOL SKIN/TISSUE 12/26/2019 79667-EBRBEAF SKIN/TISSUE 02/10/2020 56940-GBAPYVG SKIN/TISSUE 03/30/2020 53142-VSATHTO SKIN/TISSUE 10/10/2019 39205-TCUVAXR SKIN/TISSUE 10/25/2019 62619-VQTIDMC SKIN/TISSUE 03/19/2022 99130-UBKHGFH SKIN/TISSUE 01/30/2023 88839-WQEJGOI SKIN/TISSUE 11/15/2021 80717-PELWUWV SKIN/TISSUE 08/30/2021 76266-ZRRBCZK SKIN/TISSUE 09/10/2021 79045-KDHVMJZ SKIN/TISSUE 10/01/2021 33265-LSCTVFV SKIN/TISSUE 06/15/2020 70982-SDFKGMH SKIN/TISSUE 04/19/2024 15317-AFOBHUL SKIN/TISSUE 02/02/2024 18285-MWMENND SKIN/TISSUE 11/20/2023 67145-IJFXYNV SKIN/TISSUE 06/25/2022 91755-RRSNBWM SKIN/TISSUE 05/26/2023 91527-IVKDXQC SKIN/TISSUE 08/11/2023 36502 I&D ABSCESS- SIMPLE,SINGLE 020 01044-HJXW SKIN LESIONS, OVER 4 10/17/19 18 61694-ONRF SKIN LESIONS, OVER 4 09/27/19 20 77328-UBCU SKIN LESIONS, OVER 4 05/31/19 20 77093-RBVB SKIN LESIONS, OVER 4 03/30/20 20 38864-MXZY SKIN LESIONS, OVER 4 01/03/20 20 61953-ZJSX SKIN LESIONS, OVER 4 03/01/20 19 16708-BZHO SKIN LESIONS, OVER 4 12/11/19 19 71125-PEZU SKIN LESIONS, OVER 4 09/25/19 19 37819-YBOJ SKIN LESIONS, OVER 4 05/07/20 18 17365-JWMR SKIN LESIONS, OVER 4 07/16/19 19 38443-AGPK SKIN LESIONS, OVER 4 02/24/20 18 95518-ERLQ SKIN LESIONS, OVER 4 12/23/19 18 51789-MYJI SKIN LESIONS, OVER 4 06/15/19 21 99637-QMHR SKIN LESIONS, OVER 4 04/23/20 21 15817-MXWH SKIN LESIONS, OVER 4 09/15/19 21 85915-INKP SKIN LESIONS, OVER 4 08/31/19 22 54226-EFHQ SKIN LESIONS, OVER 4 06/24/20 22 53974-FJYM SKIN LESIONS, OVER 4 02/08/20 22 79092-TQUB SKIN LESIONS, OVER 4 01/31/20 23 41458-COPW SKIN LESIONS, OVER 4 11/22/19 23 65530-XBKC SKIN LESIONS, OVER 4 09/03/19 23 64312-QFKH SKIN LESIONS, OVER 4 04/25/20 22 70532-JTAU SKIN LESIONS, OVER 4 07/01/19 23 27822-XMFP SKIN LESIONS, OVER 4 05/26/19 24 61799-OBWN SKIN LESIONS, OVER 4 11/20/19 24 47421-LTGD SKIN LESIONS, OVER 4 02/01/20 25 37355-MZIT SKIN LESIONS, OVER 4 10/26/19 25 92539-NSUF SKIN LESIONS, 2 TO 4 02/02/20 24 52816-MFXS SKIN LESIONS, 2 TO 4 04/19/20 24 11281-KOWS SKIN LESIONS, 2 TO 4 07/22/19 25 16426-ERYR SKIN LESIONS, 2 TO 4 08/11/19 24 69223-Nkbs. Subungual Hematoma 5 E7192-OFABWKXH DYSTROPHIC NAILS ANY # 24261-Nikgmwtbp, Toes 10/25/2019 45565 - Tenotomy, open flexor 02/28/2020 78725 - Tenotomy, open flexor 09/03/2018 23542 - Tenotomy, open flexor 07/15/2022 64538 - Tenotomy, open flexor 08/15/2022 54082 - Tenotomy, open flexor 01/13/2023 77211 - Tenotomy, open flexor 07/03/2020 Next Appt Details Provider Name:Mic Mo , 05/16/2025 10:00:00 AM, [address] [place], [address], Insurance Providers Payer Name Payer Address Payer Phone Subscriber Number Group Number Insured Name Patient Relationship to Insured Coverage Start Date Coverage End Date [employer] [place] Medicare Advantage [address] [facility] [id number] Karthikeyan Lazo Self - patient is the [...] in toe antibiotics 42 da ys 12/04/2020 [facility] [place] infection toe 07/10/2018 [facility] for toe infection 01/15 -01/21 [place] for toe infections 05/20/17
--- OUTSIDE RECORDS SUMMARY | 2025-04-13 01:58 | XMS_ITS | Continuity of Care Document ---
Author Organization [facility] Address [address] [facility] [place] [address] Assessment No assessment recorded. Plan of Treatment Reminders Order Date Submit Date Provider Last Modified By Organization Details Last Modified Time Details Appointments FOLLOW UP 15 2025 11:15A M MANUEL BILLS Not available Not available Not available MEDICARE ANNUAL WELLNESS 2025 10:30A M MANUEL BILLS Not available Not available Not available Lab None recorded. Referral None recorded. Procedures None recorded. Surgeries None recorded. Imaging None recorded. Medication Orders None recorded. Patient TargetsNo targets recorded. Patient InstructionsNo instructions recorded. Reason for Referral None Reported. Results Created Date Observation Date Name Description Value Unit Range Abnormal Flag Note LastModifiedBy Organization Detail LastModifiedTime 03/14/2003/14/2025 hemog lobin A1c, QN, blood A1C 6.1 abnormal Not Available [facility] (Medical Records) [address] [place], [address], 03/15/2025 11:07:47 Result Notes None recorded. Problems Name Problem SNOMED Code Status Onset Date Resolution Date Notes Provider Name and Address Organization Details Recorded Time Gastroeso phageal reflux disease 421905096 Active 2017 [facility] 5 14:18:50 Esophagea l web / ring 503065260 Active 2017 [facility] 5 14:19:05 Hypertens esperanza disorder 25703914 Active 2017 white coat [facility]thur [facility] 5 14:18:50 Osteomyel itis 62635658 Active 2017 [facility] 14:[facility]05 Chronic kidney disease 243766568 Active 2017 [facility] 5 14:18:50 Inflamed seborrhei c keratosis 042739849 Active 2017 [facility] 5 14:19:05 Type 2 diabetes mellitus 07397704 Active 2017 MANUEL BILLS [address] [place] [address], [address], [facility] 5 09:37:13 Neuropath y due to diabetes mellitus 565942263 Active 2017 [facility] 5 14:18:50 Well controlle d type 2 diabetes mellitus 831285952 Active 2017 MANUEL BILLS [address] [place] [address], [address], [facility] 5 14:29:31 Systolic murmur 43892901 Active 2019 [facility] 5 14:18:50 Labile hypertens ion due to being in a clinical environme nt 912960004 Active 2019 Not Available [facility] 1 14:23:18 Hiatal hernia 79102652 Active 2020 small [facility] 5 14:18:50 COVID-19 260082420 Active 2022 [facility] 5 14:19:05 Ulcer of toe 875260193 Active 2022 [facility] 5 14:19:05 Aortic stenosis, non-rheum atic 936991220 Active 2022 [facility] 5 14:18:50 Bilateral lower leg edema 667339328 Active 2022 Jennifer arthur, [facility] 5 14:19:05 Achalasia 28728542 Active 2022 type 2 Jenniferchantel Mcintsoh null, [facility] 5 14:18:50 Aspiratio n pneumonia 671502773 Active 2022 Jenniferchantel Mcintosh null, [facility] 5 14:19:05 Ulcer of foot 59877285 Active 2023 Jenniferchantel Mcintosh null, [facility] 5 14:19:05 Cataract due to diabetes mellitus type 2 915194047 Active 2023 Jenniferchantel Mcintosh null, [facility] 5 14:18:50 Osteomyel itis of right foot 423303440836 9100 Active 2023 Jenniferchantel Mcintosh null, [facility] 5 14:19:05 Chronic regurgita tion 20772785 Active 2023 Jennifer Mcintosh null, [facility] 5 14:18:50 Osteomyel itis of left foot 202404208190 9107 Active 2023 Jennifer Mcintosh null, [facility] 5 14:19:05 Abnormal weight loss 634179124 Active 2023 [facility] 5 14:19:05 Essential hypertens ion 56385321 Active 2023 Jennifer Mcintosh null, [facility] 5 14:18:50 Fall Active 2023 Jennifer Mcintosh null, [facility] 5 14:19:05 Physical deconditi oning 595326448118 02 Active 2023 Jennifer Mcintosh null, [facility] 5 14:18:50 Pain of left knee joint 806951033267 107 Active 2023 Jennifer Mcintosh null, [facility] 5 14:19:05 Acute hyperkale desiree 7250438 Active 2023 [facility] 5 14:19:05 Right inguinal hernia 116570102 Active 2024 [facility] 5 14:18:50 Gastro-es ophageal reflux disease with esophagit is 070869227 Active 2024 MANUEL BILLS [address] [place] [address], [address], [facility] 5 15:59:15 Mixed hyperlipi demia 305161377 Active 2024 MANUEL BILLS [address] [place] [address], [address], [facility] 5 10:42:35 Grief finding 204897800 Active 2024 MANUEL BILLS [address] [place] [address], [address], [facility] 5 10:40:04 Notes:Some problems listed i n Documents: #[id number], #[id number], #[id number], #[id number], #[id number] could not be added to this patient's chart. Please review these documents and add these problems to the patient's chart manually as needed. Problem Notes None recorded. Procedures Surgical History Date Name Laterality Status Provider Name and Address Organization Details Recorded Time 020 Arthrocentesis Major Joint/Bursa completed August ElenaMAURIZIO sanchez [address] [place] [address], [address], [facility] 07/29/2019 11:49:15 020 Removal of foreign body in ear canal completed August [facility] [address], [address], [facility] 07/29/2019 11:50:25 Imaging Results None recorded. Procedure Notes None recorded. Medical Equipment None Reported. Allergies Allergen ID Allergen Name Allergen Category Reaction Reaction Severity Criticality Documentation Date Start Date Code Code System Note Provider Name and Address Organization Details Recorded Time 2510 adhesive environme nt,medica tion Not available Not available Not available 04/09/2018 Simi arthur [place] [facility] 8 15:08:01 9729 Latex (substanc e) environme nt,medica tion Not available Not available Not available 04/11/20252023 83957 8007 SNOMED Not Available [facility] - [employer] - prod 03:49:59 9730 latex environme nt,medica tion other Not available Not available 04/11/20252020 77197 91 RxNorm Other react ion(s ): itchy Not Available [employer] - External Data [employer] - prod 03:50:33 9731 omeprazol e medicatio n Not available Not available Not available 04/11/20252023 7646 RxNorm Other React ion(s ): legs swell ing, kidne y issue s Not Available [employer] - External Data [employer] - prod 03:50:33 9737 Adhesive agent (substanc e) environme nt,medica tion Not available Not available Not available 04/11/20252020 19018 0007 SNOMED Not Available [facility] - External [...] scale: IF GLUCOSE IS 130-150 use 2 -200 use 4 qdwbu379 -250 use 6 mycvc266 -300 use 8 avaje471 -350 use 10 units>35 1 use 12 [...] Available Not Avai lable FreeStyle Ana [address] [place] USE DIRECTED TO TEST BLOOD GLUCOSE active [...] Updated DateTime 5 190.5 cm 25 kg/m2 84333.4 7 g 98 % 98 % 67 /min 128/76 mm[Hg] JOY RAM [facility] 5 14:16:16 Social History Question Answer Notes LastModified by Organizat ion Details LastModified Time Tobacco Smoking Status Never Smoker Not Available [facility] 03/27/2020 03:36:24 What Was The [...] zoster live 10/24/19 12 completed Nai arthur [facility] 02/03/2018 16:12:49 Influenza, split virus, quadrivalent, preservative 01/16/20 21 completed Jos Mirza DO [address] [place] [address], [address], [facility] 04/16/2021 09:59:56 COVID-19, mRNA, LNP-S, PF, 30 mcg/0.3 mL dose 02/21/20 21 completed Emily arthur [facility] Internal [facility] 05/13/2021 10:01:17 influenza, unspecified formulation 01/31/20 22 completed Jos Mirza DO [address] [place] [address], [address], [facility] 07/25/2022 13:39:10 Influenza, split virus, quadrivalent, preservative 01/19/20 19 completed Simi arthur [facility] 01/19/2019 08:07:19 pneumococcal polysaccharide PPV23 12/15/19 18 completed Not Available [facility] 06/25/2019 02:14:52 Influenza, split virus, quadrivalent, preservative 02/07/20 20 completed Simi arthur [place] [facility] 05/14/2020 13:36:29 zoster recombinant 05/29/19 21 completed Simi arthur [facility] 05/30/2020 13:55:39 zoster, unspecified formulation 08/14/19 21 completed Simi arthur, [facility] 08/14/2020 14:30:47 COVID-19, mRNA, LNP-S, PF, 30 mcg/0.3 mL dose 07/20/19 21 completed Simi arthur, [facility] 08/15/2020 13:37:20 COVID-19, mRNA, LNP-S, PF, 30 mcg/0.3 mL dose 07/05/19 21 completed Simi arthur [facility] 08/15/2020 13:37:30 Td(adult) unspecified formulation 09/27/19 17 [facility] 01/27/2018 08:24:33 Influenza, split virus, quadrivalent, preservative 01/30/20 18 completed Jos Mirza DO [address] [place] [address], [address], [facility] 01/30/2018 14:25:04 Past Encounters Encounter ID Performer Location Encounter Start Date Encounter Closed Date Diagnosis/Indication Diagnosis SNOMED-CT Code Diagnosis ICD10 Code Diagnosis IMO Codes Diagnosis Note [id number] Jos Mirza DO [facility] Internal [facility] [address] [facility],[place] [address] 04/11/2025 13:59:29 04/11/2025 15:19:36 Depression screening 810731744 Z13.31 grief over still, is improving over time Grief finding 889321543 F43.20 91931 is improvingh as a good support system Essential hypertension 21423381 I10 stable Well contr olled type 2 diabetes mellitus 012989230 E11.9 Z79.4 45860862 stable Health Concerns Section Related Observation LastModified by Organization Detai ls LastModified Time None Recorded Concern Status LastModified by Organization Details LastModified Time None Recorded Payers Encounter Date Sequence Insurance Name Policy Number Policy Lambert Covered Member ID Lambert Member ID Guarantor Name 04/11/2025 1 [employer] - MED[employer]ARE ADVANTAGE PLAN (MEDICARE REPLACEMENT HMO) [id number] 1 Karthikeyan Cassidy [employer]ifton Sr. [id number] Karthikeyan Lazo Notes Date Note Type Note Provider Name a nd Address Organization Details Recorded Time 04/11/2025 text/html ROS as noted in the HPI 3 [...] is continue on current medications MANUEL BILLS [address] [place] [address], [place], [address], [facility] 04/11/2025 14:50:48
--- OUTSIDE RECORDS SUMMARY | 2025-04-13 01:59 | XMS_ITS | Clinical Summary ---
Author Organization [facility] Address [address] [place] [address] Phone Care Team Providers Care Building Services Engineer Name Role Phone Brianna Cano MD Unavailable [phone] Izzy Guillermo MD Unavailable [phone] Lev Miller CNP Unavailable [phone] Jos Mirza DO Primary Care Provider [phone] Allergies No known active allergies Medications flaxseed oil 1,000 mg Cap Active b complex vitamins capsule Active cholecalciferol , vitamin D3, 1,000 unit capsule 1 capsule Active NIFEDIPINE ORAL Take 120 mg by mouth daily. 03/18/2023 Active metoprolol succinate (TOPROL-XL) 50 MG 24 hr tablet Take 50 mg by mouth daily. 03/18/2023 Active clopidogrel (PLAVIX) 75 mg tablet Take 75 mg by mouth daily. 07/05-has not re-started since surgery 05/26/2023 Active hydrALAZINE (APRESOLINE) 25 MG tablet Take 25 mg by mouth 3 (three) times a day. 08/31/2023 Active levoFLOXacin (LEVAQUIN) 750 MG tablet Take 750 mg by mouth daily. 10/06/2023 Active Active Problems Problem Noted Date Diagnosed Date Hypertension 05/02/2017 Assessment & Plan (05/04/2017 12:09 PM EST): He will recheck his blood pressure at home and call his primary care doctor if it remains elevated. Open wound of lesser toe of right foot without damage to nail 05/02/2017 Assessment & Plan (05/04/2017 12:11 PM EST): The wound was cleaned and betadine was [...] much rest as possible to heal quickly. Assessment & Plan (05/02/2017 12:04 PM EST): The wound was cleaned and bacitracin was applied. The toe was wrapped with gauze fluff and Coban. He will change the dressing daily. We will see him back on Thursday to reassess. He will call the office with any worsening of infectious symptoms over the weekend. He will retrieve the prescription for Duricef. He is encouraged to offload pressure from the toe as much as possible and to elevate when sitting. He understands this requires as much rest as possible to heal quickly. Chronic renal failure, stage 3 (moderate) 2016 Assessment & Plan (04/23/2017 9:05 AM EST): He has had some fluctuation in his renal function and has a appointment scheduled with nephrology for the end of this month. Diabetes 04/03/2017 Open wound of left foot 04/03/2017 Assessment & Plan (05/04/2017 12:10 PM EST): He will continue Silvadene and Band-Aid to the foot. He will continue to monitor for changes of the wound. It will likely be very slow to heal, but remains clean without signs of infection. Assessment & Plan (04/23/2017 4:10 PM EST): He will continue Silvadene and Band-Aid to the foot. He will continue to monitor for changes of the wound. It will likely be very slow to heal, but remains clean without signs of infection. Assessment & Plan (04/03/2017 4:58 PM EST): He will continue Silvadene and Band-Aid to the foot. He will continue to monitor for changes of the wound. It will likely be very slow to heal, but remains clean without signs of infection. Resolved Problems Problem Noted Date Diagnosed Date Resolved Date Osteomyelitis of toe of right foot 04/03/2017 05/02/2017 Assessment & Plan (04/23/2017 4:13 PM EST): He reports his ESR is trending down, though I do not have lab values to confirm. We will obtain them from Dr. Mirza's office. I discussed his case with Dr. Chase of [place]. He does not see the need to repeat the MRI as it will always remain abnormal from his prior history of osteo. As he has improved clinically, we can assume cure. He is advised to inspect his toe at least twice daily and to watch for signs of infection. We will see him back in 1 month's time. Assessment & Plan (04/03/2017 4:58 PM EST): We will continue the ceftriaxone and local wound care. He has noted that there has been difficulty with blood return from his port. I advised he have peripheral sticks for blood work. His ESR is trending down he reports, though I do not have lab values to confirm. We will see him back in 2 weeks' time and determine at that point when he should have a repeat MRI to evaluate resolution of the osteomyelitis. Family History Medical History Relation Comments Cancer Father 2 Cancer Mother 2 Cancer Sibling 2 Relation Status Comments Father 1 Father 2 Mother 1 Mother 2 Sibling 1 Sibling 2 Social History Tobacco Use Types Packs/Day Years Used Date Smoking Tobacco: Never Smokeless Tobacco: Never Home Health Assessment: Transportation Answer Date Recorded Lack of Transportation (Medical) No 10/30/2023 Lack of Transportation (Non-Medical) No 10/30/2023 Patient Unable or Declines to Respond No 10/30/2023 Education Answer Date Recorded Are you interested in more education? Not on alicia e 09/19/2022 Are you concerned about learning? Not on file 09/19/2022 No 09/19/2022 No 09/19/2022 Digital Access Answer Date Recorded No 10/20/2022 No 10/20/2022 Reliable internet access at home? Not on file 10/20/2022 Device with a working camera? Not on file Sex and Gender Information Value Date Recorded Sex Assigned at Not on file Legal Sex Male 10:12 PM EDT Gender Identity Not on file Sexual Orientation Not on file Last Filed Vital Signs Vital Sign Reading Time Taken Comments Blood Pressure 130/88 10/30/2023 12:30 PM EDT Pulse 60 10/30/2023 12:30 PM EDT Temperature 36.1 C (97 F) 10/30/2023 12:30 PM EDT Respiratory Rate 18 10/30/2023 12:30 PM EDT Oxygen Saturation 97% 10/30/2023 12:30 PM EDT Inhaled Oxygen Concentration - - Weight 86.2 kg (190 lb) 10/06/2023 8:47 AM EDT Height 190.5 cm (6' 3 ) 05/04/2017 11:00 AM EST Body Mass Index 23.75 05/04/2017 11:00 AM EST Plan of Treatment Health Maintenance Due Date Last Done Comments HEMOGLOBIN A1C 1940 DEPRESSION SCREENING 1952 ZOSTER VACCINES (1 of 2) 1990 LIPID PANEL 12/18/2011 12/17/2010 RSV VACCINE (1 - 1-dose 75+ series) 10/06/2015 DIABETIC EYE EXAM 04/03/2017 BLOOD PRESSURE 04/30/2024 10/30/2023 INFLUENZA VACCINE (#1) 2024 9, 01/29/2018, 02/22/2017, Additional history exists COVID-19 VACCINE ( season) 2025 07/21/2020, 06/29/2020 Adult Td,Tdap Booster 09/26/2026 09/26/2016 PNEUMOCOCCAL VACCINES (50+ years) Completed 09/26/2016, 02/27/2015 HEPATITIS A VACCINES Aged Out No long er eligible based on patient's age to complete this topic HIB VACCINES Aged Out No longer eligi ble based on patient's age to complete this topic MENINGOCOCCAL VACCINES (ACWY) Aged Out No longer eligible based on patient's age to complete this topic MENINGOCOCCAL VACCINES (B) Aged Out N o longer eligible based on patient's age to complete this topic Medical Devices Not on file Procedures Procedure Name Priority Date/Time Associated Diagnosis Comments OUTSIDE LDL Routine 12/17/2010 from Last 3 Months or Most Recently Relevant to Health Maintenance Results * Outside LDL (12/17/2010) LDL - External 130 50 - 250 mg/ml us [facility] Provider LAB BLOOD ORDERABLES Angelique l Result from Last 3 Months or Most Recently Relevant to Health Maintenance Insurance [employer] [place] [employer] POS PPO REPLACEMENT [employer] [place] [employer] [place] PPO REPLACEMENT MEDICARE POS PPO REPLACEMENT [place] [place] [employer] [place] PPO REPLACEMENT [place] [place] [employer] [place] PPO REPLACEMENT [place] [place] [employer] [place] PPO REPLACEMENT [employer] [place] [employer] [place] PPO REPLACEMENT Member Subscriber Plan / Payer (Ef fective 2023-Present) Name:CliftonKarthikeyan Relation to Subscriber:Self Name:CliffordKarthikeyan burnham Payer ID:Not on file Type:Medicare Address: [place] [id number] [employer] [place] [employer] POS PPO REPLACEMENT MEDICARE POS PPO REPLACEMENT Care Teams Building Services Engineer Relationship Specialty Start Date End Date Jos Mirza DO [facility], [address] [place] [address] PCP - General Internal Medicine 04/23/17 Brianna Cano MD [address] [place] [address] [email or web address] Surgeon General Surgery 03/09/17 Izzy Guillermo MD [address] [place] [address] [email or web address] Surgeon General Surgery 03/09/17 Lev Miller CNP [address] [place] [address] [email or web address] Nurse Practitioner General Surgery 03/09/17 Additional Source Comments The information contained in this document represents components of the legal health record. It is not the complete legal health record.[facility]
--- OUTSIDE RECORDS SUMMARY | 2025-04-13 01:59 | XMS_ITS | Clinical Summary ---
Author Organization [facility] Address [address] [place] [address] Care Team Providers Care Automatic Mounter Name Role Phone Jos Mirza DO Primary Care Provider [phone] Allergies Active Allergy Reactions Criticality Noted Date [...] to complete this topic Insurance Care Teams Automatic Mounter Relationship Specialty Start Date End Date Jos Mirza DO [address] [facility] [place] [address] PCP - General 06/04/20
--- OUTSIDE RECORDS SUMMARY | 2025-04-13 01:59 | XMS_ITS | Patient Health Record ---
Author Organization [facility] Address [address] [place] [address] Care Team Providers Care Deputy Chief Sheriff Name Role Phone Jos Mirza Primary Care Provider Too Torres Jr Unavailable [phone] Allergies Allergen (clinical drug ingredient) Drug/Non Drug Allergy documented on EMR Reaction Allergy Type Onset Date Status Latex Latex Unknown Allergy Active Reason For Referral No Information Medications Medication SIG (Take, Route, Frequency, Duration) Notes Start Date End Date Status Vitamin B12 500 MCG Tablet 1 tablet Oral ly Once a day; Duration: 30 day(s) Active Calcium 600 MG Tablet 1 tablet with meal s Orally Once a day Active NIFEdipine ER 90 MG Tablet Extended Release 24 Hour Oral; Duration: 90 Active Metoprolol Succinate ER 25 MG Tablet Extended Release 24 Hour 1 tablet Orally Once a day; Duration: 30 day(s) Active Flaxseed Oil 1000 MG Capsule as directed Orally Active Pantoprazole Sodium 20 MG Tablet Delayed Release 1 tablet Orally Once a day; Duration: 30 day(s) Active Vitamin C 500 MG Capsule as directed Orally Active Fish Oil 1000 MG Capsule 1 capsule Orall y Once a day; Duration: 30 day(s) Active Vitamin D3 1000 UNIT Capsule 1 capsule Orally Once a day; Duration: 30 day(s) Active Immunizations Vaccine Route Administration Date Status Comme nts Influenza Unknown 02/10/2019 Administered Influenza Unknown 03/26/2021 Administered Influenza Unknown 03/11/2022 Administered Social History Tobacco Use: Social History Observation Description Date Details (start date - stop date) Never Smoker NA - NA Social History Drugs/Alcohol: Social Info Question Answer Notes Alcohol Screen Did you have a drink containing alcohol in the past year? Yes How often did you have a drink containing alcohol in the past year? Monthly or less (1 point) How often did you have 6 or more drinks on one occasion in the past year? Never (0 point) Points 1 Interpretation Negative Tobacco Use: Social Info Question Answer Notes Tobacco Use/Smoking Patient is a nonsmoker Additional Details Category Social Info Options Details Miscellaneous: Marital status: Occupation: retired Problems Problem Type SNOMED Code ICD Code Onset Dates Problem Status W/U Status Risk Notes Problem Dysphagia (24107599) Other dysphagia (R13.19) Active confirmed Problem Dysphagia (60984081) Dysphagia (R13.10) Active confirmed Problem Esophageal stricture (37378242) Esophageal stricture (K22.2) Active confirmed Problem Gastric polyp (68048086) Gastric polyp (K31.7) Active confirmed Problem Achalasia (21247423) Achalasia (K22.0) Active confirmed Problem Regurgitation of food (590680095) Regurgitation of food (R11.10) Active confirmed Problem Essential hypertension (39716023) Hypertension, unspecified type (I10) Active confirmed Plan Of Treatment Future Test Test Name Order Date UPPER GI ENDOSCOPY BALLOOON DILATION OF ESOPH 03/11/2019 UPPER GI ENDOSCOPY BALLOOON DILATION OF ESOPH 02/17/2022 UPPER GI ENDOSCOPY 03/12/2022 Next Appt Details Provider Name:Too sun , 05/01/2025 01:35:00 PM, [address] [place] [address], [address], [place], [address], Insurance Providers Payer Name Payer Address Payer Phone Subscriber Number Group Number Insured Name Patient Relationship to Insured Coverage Start Date Coverage End Date [facility] [address] [place] [phone] [id number] LUNA LAM Self - patient is the insured Medical (General) History Medical History History ICD Code Type 2 diabetes mellitus, neuropathy hypertension kidney disease, stage 3 LINDA/CPAP SVT Diabetic foot infection Aortic stenosis Surgical History Surgery Date(Month/Year) Hospitalization History Reason Date(Month/Year) [facility], bone infection 2020
--- OUTSIDE RECORDS SUMMARY | 2025-04-13 01:59 | XMS_ITS | Encounter Summary ---
Author Organization [facility] Address [address] [place] [address] [place] [address] Phone Care Team Providers Care Twenty One Dealer Name Role Phone CarterBrianna MD Unavailable Alysa Winn CADDIE SUPERVISOR Unavailable [phone] Izzy Guillermo MD Unavailable [phone] Katie Schulz DPM Unavailable Unavailable Lev Miller FORGING ROLL OPERATOR Unavailable [phone] Esme Zamora CADDIE SUPERVISOR Unavailable [phone] Jos Mirza DO Primary Care Provider [phone] Encounter Details Date Type Department Care Team (Late st Contact Info) Description 01/18/2018 Ancillary Orders Virtual Department [address] [place] [address] Mariah Carias, FORGING ROLL OPERATOR [address] [place] [address] Cellulitis of toe, left Social History Tobacco [...] left documented in this encounter Care Teams Twenty One Dealer Relationship Specialty Start Date End Date Jos Mirza DO [address] [place] [address] PCP - General Internal Medicine 04/23/17 Brianna Cano MD [address] [place] [address] Surgeon General Surgery 03/09/17 Alysa Winn NP [address] [place] [address] [email or web address] Historical LMR Provider 03/09/17 2 Izzy Guillermo MD [address] [place] [address] Surgeon General Surgery 03/09/17 Katie Schulz DPM [address] [place] [address] Historical LMR Provider 03/09/1706/01/21 Lev Miller, FORGING ROLL OPERATOR [address] [place] [address] [email or web address] Nurse Practitioner General Surgery 03/09/17 Esme Zamora NP [address] [place] [address] Historical LMR Provider 03/09/17 2 documented as of this encounter Additional Source Comments The information contained in this document represents components of the legal health record. It is not the complete legal health record.[facility]
--- OUTSIDE RECORDS SUMMARY | 2025-04-13 01:59 | XMS_ITS | Encounter Summary ---
Author Organization [facility] Address [address] [place] [address] [place] [address] Phone Care Team Providers Care Meat Counter Worker Name Role Phone Jos Mirza DO Unavailable Brianna Cano MD Unavailable Alysa Winn SHEARING SHED WORKER Unavailable Izzy Guillermo MD Unavailable Katie Schulz DPM Unavailable Unavailable Lev Miller CHLORINE OPERATOR Unavailable Esme Zamora SHEARING SHED WORKER Unavailable Jos Mirza DO Primary Care Provider [phone] Jos Mirza DO Primary Care Provider [phone] Encounter Details Date Type Department Care Team (Late st Contact Info) Description 03/23/2017 Transcribe Orders [facility] [address] [address] Brianna Cano MD 15 [facility], 2nd [place] [address] Acute hematogenous osteomyelitis, unspecified site (Primary Dx) [...] EDT) ESR 52(H) 0 - 20 mm/h [facility] Blood 03/23/2017 3:06 PM EDT 03/23/2017 3:11 PM EDT us Brianna Cano MD LAB BLOOD BKR ORDERABLES Fin al Result Performing Organization Address City/[facility]/ZIP Co de Phone Number [address] [address] * (ABNORMAL) Creatinine/eGFR (03/23/2017 3:06 PM EDT) CREATININE 1.80(H) 0.5 - 1.5 mg/dL [facility] EGFR 37 mL/min/1.7 3m2 [facility] Comment:Abnormal if <60. If patient is -Bulgarian, multiply the result by 1.21. Blood 03/23/2017 3:06 PM EDT 03/23/2017 3:11 PM EDT us Brianna Cano MD LAB BLOOD BKR ORDERABLES Fin al Result Performing Organization Address [facility] Co de Phone Number [address] [address] * (ABNORMAL) BUN (03/23/2017 3:06 PM EDT) BUN 33(H) 6 - 19 mg/dL [facility] Blood 03/23/2017 3:06 PM EDT 03/23/2017 3:11 PM EDT Brianna Cano MD LAB BLOOD BKR ORDERABLES Fin al Result Performing Organization Address City/[facility] Co de Phone Number [address] [address] * (ABNORMAL) C-Reactive Protein (03/23/2017 3:06 PM EDT) C REACTIVE PROTEIN 0.9(H) 0 - 0.5 mg/L [facility] Blood 03/23/2017 3:06 PM EDT 03/23/2017 3:11 PM EDT us Brianna Cano MD LAB BLOOD BKR ORDERABLES Fin al Result [facility] [address] [place] [address] * (ABNORMAL) CBC and differential (03/23/2017 3:06 PM EDT) WBC 9.26 3.40 - 11.20 K/uL [facility] RBC 4.22(L) 4.50 - 5.50 M/uL [facility] HGB 11.9(L) 13.0 - 17.0 g/dL [facility] HCT 35.4(L) 40.0 - 51.0 % [facility] PLT 266 130 - 400 K/uL [facility] MCV 83.9 79.0 - 98.0 [facility] MCH 28.2 27.0 - 34.8 pg [facility] MCHC 33.6 31.5 - 36.0 g/dL [facility] RDW 13.2 10.8 - 14.6 % [facility] MPV 11.0 9.4 - 12.4 [facility] NRBC 0.00 /100 WBCs [facility] ABSOLUTE NRBC 0.00 K/uL [facility] DIFF METHOD Auto [facility] NEUTS 60.6 45.30 - 77.70 % [facility] LYMPHS 20.7 12.30 - 39.70 % [facility] MONOS 10.8 4.10 - 12.80 % [facility] EOS 5.6 0 - 7.2 % [facility] BASOS 1.5 0 - 2.80 % [facility] Granulocytes, immature (%) 0.8 0.0 - 0.9 % [facility] ABSOLUTE NEUTS 5.61 1.40 - 7.70 K/uL [facility] ABSOLUTE LYMPHS 1.92 0.60 - 3.20 K/uL [facility] ABSOLUTE MONOS 1.00(H) 0.11 - 0.59 K/uL [facility] ABSOLUTE EOS 0.52(H) 0.01 - 0.50 K/uL [facility] ABSOLUTE BASOS 0.14(H) 0.00 - 0.08 K/uL [facility] Granulocytes, immature 0.07(H) 0.00 - 0.05 K/uL [facility] Blood 03/23/2017 3:06 PM EDT 03/23/2017 3:11 PM EDT us Brianna Cano MD LAB BLOOD BKR ORDERABLES Fin al Result Performing Organization Address City/[facility]/ZIP Co de Phone Number [address] [address] * LFTs (hepatic panel) (03/23/2017 3:06 PM EDT) ALKALINE PHOSPHATASE 84 39 - 117 U/L [facility] TOTAL BILIRUBIN 0.2 0 - 1.2 mg/dL [facility] DIRECT BILIRUBIN <0.2 0 - 0.3 mg/dL [facility] Bilirubin (Indirect) NOT CALCULATED 0 - 1.5 mg/dL [facility] AST 15 0 - 37 U/L [facility] ALT 12 0 - 40 U/L [facility] TOTAL PROTEIN 7.7 6.5 - 8.0 g/dL [facility] ALBUMIN 4.3 3.9 - 4.8 g/dL [facility] GLOBULIN 3.4 1 - 4.8 g/dL [facility] A/G Ratio 1.26 1.00 - 4.80 RATIO [facility] Blood 03/23/2017 3:06 PM EDT 03/23/2017 3:11 PM EDT Brianna Cano MD LAB BLOOD BKR ORDERABLES Rayray griselda Result - Final Performing Organization Address City/[facility]/ZIP Co de Phone Number [address] [address] documented in this encounter Visit Diagnoses Diagnosis Acute hematogenous osteomyelitis, unspecified site- Primary documented in this encounter Care Teams Meat Counter Worker Relationship Specialty Start Date End Date JuneJos lairdDO [address] [place] [address] PCP - General Internal Medicine 03/20/17 04/22/17 Hermes Jos CassidyDO [address] [place] [address] PCP - General Internal Medicine 04/23/17 Jos Mirza KhanhDO [address] [place] [address] Historical LMR Provider 03/09/17 04/02/17 Brianna Cano MD [address] [place] [address] Surgeon General Surgery 03/09/17 Alysa Winn, SHEARING SHED WORKER [address] [place] [address] [email or web address] Historical LMR Provider 03/09/17 2 Izzy Guillermo MD [address] [place] [address] Surgeon General Surgery 03/09/17 Katie Schulz DPM [address] [place] [address] Historical LMR Provider 03/09/1706/01/21 Lev Miller, CHLORINE OPERATOR [address] [place] [address] [email or web address] Nurse Practitioner General Surgery 03/09/17 Esme Zamora NP [address] [place] [address] Historical LMR Provider 03/09/17 2 documented as of this encounter Additional Source Comments The information contained in this document represents components of the legal health record. It is not the complete legal health record.[facility]
--- OUTSIDE RECORDS SUMMARY | 2025-04-13 01:59 | XMS_ITS | Encounter Summary ---
Author Organization [facility] Address [address] [place] [address] [place] [address] Phone Care Team Providers Care Printing Roller Polisher Name Role Phone RachaelBrianna MD Unavailable Alysa Winn SQL SSRS SSIS DEVELOPER Unavailable [phone] Izzy Guillermo MD Unavailable [phone] Katie Schulz DPM Unavailable Unavailable Lev Miller CORPORATE FITNESS PROGRAM COORDINATOR Unavailable [phone] Esme Zamora SQL SSRS SSIS DEVELOPER Unavailable [phone] Jos Mirza DO Primary Care Provider [phone] Encounter Details Date Type Department Care Team (Late st Contact Info) Description 01/18/2018 Ancillary Orders Virtual Department [address] [place] [address] Mariah Carias, CORPORATE FITNESS PROGRAM COORDINATOR [address] [place] [address] Social History Tobacco Use Types Packs/Day Years [...] on filedocumented in this encounter Care Teams Printing Roller Polisher Relationship Specialty Start Date End Date Jos Mirza DO [address] [place] [address] [email or web address] PCP - General Internal Medicine 04/23/17 Brianna Cano MD [address] [place] [address] [email or web address] Surgeon General Surgery 03/09/17 Alysa Winn NP [address] [place] [address] [email or web address] Historical LMR Provider 03/09/17 2 Izzy Guillermo MD [address] [place] [address] [email or web address] Surgeon General Surgery 03/09/17 Katie Schulz DPM [address] [place] [address] Historical LMR Provider 03/09/1706/01/21 Lev Miller, CORPORATE FITNESS PROGRAM COORDINATOR [address] [place] [address] [email or web address] Nurse Practitioner General Surgery 03/09/17 Esme Zamora NP [address] [place] [address] Historical LMR Provider 03/09/17 2 documented as of this encounter Additional Source Comments The information contained in this document represents components of the legal health record. It is not the complete legal health record.[facility]
--- OUTSIDE RECORDS SUMMARY | 2025-04-13 01:59 | XMS_ITS | Encounter Summary ---
Author Organization [facility] Address [address] [place] [address] [place] [phone] Phone Care Team Providers Care Horse Racing Analyst Name Role Phone CarterBrianna MD Unavailable Alysa Winn PULP REFINER OPERATOR Unavailable [phone] Izzy Guillermo MD Unavailable [phone] Katie Schulz DPM Unavailable Unavailable Lev Miller CAR CARDER Unavailable [phone] Esme Zamora PULP REFINER OPERATOR Unavailable [phone] Jos Mirza DO Primary Care Provider [phone] Encounter Details Date Type Department Care Team (Late st Contact Info) Description 07/10/2017 Ancillary Orders [facility], -[place] - [address] [address] Mariah Carias, CAR CARDER [address] [place] [address] [email or web address] Nausea Social History Tobacco Use Types Packs/Day [...] No evidence of active cardiopulmonary disease. POS [id number] Narrative 07/10/2017 4:57 PM EST COMPARISON: None [...] No evidence of active cardiopulmonary disease. POS [id number] Mariah Carias CAR CARDER IMG XR ABDOMEN Final Resul t documented in this encounter Visit Diagnoses Diagnosis Nausea Nausea alone Nausea Nausea alone documented in this encounter Care Teams Horse Racing Analyst Relationship Specialty Start Date End Date Jos Mirza DO [address] [place] [address] [email or web address] PCP - General Internal Medicine 04/23/17 Brianna Cano MD [address] [place] [address], [address] [place] [address] Surgeon General Surgery 03/09/17 Alysa Winn NP [address] [place] [address] [email or web address] Historical LMR Provider 03/09/17 2 Izzy Guillermo MD [address] [place] [address] [email or web address] Surgeon General Surgery 03/09/17 Katie Schulz DPM [address] [place] [address] Historical LMR Provider 03/09/1706/01/21 Lev Miller CAR CARDER [address] [place] [address] [email or web address] Nurse Practitioner General Surgery 03/09/17 Esme Zamora NP [address] [place] [phone] Historical LMR Provider 03/09/17 2 documented as of this encounter Additional Source Comments The information contained in this document represents components of the legal health record. It is not the complete legal health record.[facility]
--- OUTSIDE RECORDS SUMMARY | 2025-04-13 01:59 | XMS_ITS | Encounter Summary ---
Author Organization [facility] Address [address] [place] [address] Phone Care Team Providers Care Auto Service Mechanic Name Role Phone JuneJos laird DO Primary Care Provider [phone] Encounter Details Date Type Department Care Team (Late st Contact Info) Description 10/15/2022 Telephone [facility] [address] [place] [address] Mehnaz Lamb Social History Tobacco [...] on filedocumented in this encounter Care Teams Auto Service Mechanic Relationship Specialty Start Date End Date JuneJos laird DO [address] [facility] [id number] PCP - General 06/04/20 documented as of this encounter
== END 2025-04-12 14:49 | disposition home or self-care (01) ==
LOC: HO.HCS 13:52
PROVIDERS: PCP Internal Medicine; Visit Provider Internal Medicine Cardiovascular Disease
DX: I35.0 Nonrheumatic aortic (valve) stenosis (principal); I10 Essential (primary) hypertension; R07.9 Chest pain, unspecified
CPT/HCPCS: 99214

== ENCOUNTER → 2025-04-12 13:51 | Outpatient (BNVA) | payer MEDICARE, SELFPAY | PROVIDERS: PCP Internal Medicine; Visit Provider Internal Medicine Cardiovascular Disease | DX: I35.0 Nonrheumatic aortic (valve) stenosis (principal); I10 Essential (primary) hypertension; R07.9 Chest pain, unspecified | CPT/HCPCS: 99212 ==